=== PATIENT | male | born 1940 | race Caucasian/White ===

== ENCOUNTER 2020-01-17 15:17 | Outpatient (REF) | payer MEDICARE, SELFPAY ==
[2020-01-17 16:42] LABS: C Reactive Protein 0.09 mg/dL (< or = 0.50)
[2020-01-17 17:06] LABS: Erythrocyte Sedimentation Rate 4 MM/HR (0-15)
[2020-01-20 08:31] LABS: HBS Num1 0.07 mIU/mL (0-7.99); ~Hepatitis B Surface Antibody NONREACTIVE (Nonreactive)
== END 2020-01-17 15:18 | disposition home or self-care (01) ==
LOC: HO.LAB 15:17
PROVIDERS: Visit Provider Specialist
DX: E11.9 Type 2 diabetes mellitus without complications (principal); G44.89 Other headache syndrome
CPT/HCPCS: 36415; 85652; 86140; 86706

== ENCOUNTER 2020-03-03 12:51 | Outpatient (REF) | payer MEDICARE, SELFPAY ==
--- NOTE | 2020-03-03 | CT_ITS ---
EXAMINATION: CT BRAIN AND CT SINUS WITHOUT CONTRAST. CLINICAL INFORMATION: Pain over the left eye, headache. COMPARISON: None TECHNIQUE: A 5 mm thin axial and reformatted 2 mm thin sagittal and coronal images of the brain were obtained. Subsequently axial 2 mm thin and reformatted 2 mm thin sagittal and coronal images of sinuses were obtained. DLP: 912 mGy-cm FINDINGS: BRAIN: There is no acute intra-axial, extra-axial bleed, masses or midline shift. There is no acute infarction evolution. The lateral ventricles are symmetrical in size and configuration without enlargement. Lund to white matter differentiation is maintained. Bone windows reveal no calvarial abnormality. Visualized optic globe, optic nerve and extraocular muscles are unremarkable. There is no scalp soft tissue abnormality. Visualized bilateral paranasal sinuses and mastoid air cells are well-aerated. SINUSES: There is normal aeration of bilateral paranasal sinuses and drainage pathways. The ostiomeatal complex and frontoethmoidal recesses are widely patent. The bony sinus lomax are intact. The lamina papyracea and cribriform plate appears normal. There is mild rosalind bullosa of middle turbinates. Periorbital, nasal and maxillary soft tissues are normal. CT/CT sinus wo con IMPRESSION: 1. No acute intracranial process seen. 2. Unremarkable CT sinus exam. Especially there is no intraorbital or periorbital soft tissue abnormality.
--- NOTE | 2020-03-03 | CT_ITS ---
EXAMINATION: CT BRAIN AND CT SINUS WITHOUT CONTRAST. CLINICAL INFORMATION: Pain over the left eye, headache. COMPARISON: None TECHNIQUE: A 5 mm thin axial and reformatted 2 mm thin sagittal and coronal images of the brain were obtained. Subsequently axial 2 mm thin and reformatted 2 mm thin sagittal and coronal images of sinuses were obtained. DLP: 912 mGy-cm FINDINGS: BRAIN: There is no acute intra-axial, extra-axial bleed, masses or midline shift. There is no acute infarction evolution. The lateral ventricles are symmetrical in size and configuration without enlargement. Lund to white matter differentiation is maintained. Bone windows reveal no calvarial abnormality. Visualized optic globe, optic nerve and extraocular muscles are unremarkable. There is no scalp soft tissue abnormality. Visualized bilateral paranasal sinuses and mastoid air cells are well-aerated. SINUSES: There is normal aeration of bilateral paranasal sinuses and drainage pathways. The ostiomeatal complex and frontoethmoidal recesses are widely patent. The bony sinus lomax are intact. The lamina papyracea and cribriform plate appears normal. There is mild rosalind bullosa of middle turbinates. Periorbital, nasal and maxillary soft tissues are normal. CT/CT head/brain wo con IMPRESSION: 1. No acute intracranial process seen. 2. Unremarkable CT sinus exam. Especially there is no intraorbital or periorbital soft tissue abnormality.
== END 2020-03-03 12:52 | disposition home or self-care (01) ==
LOC: HO.CT 12:51
DX: R51.9 Headache, unspecified (principal); H57.12 Ocular pain, left eye
CPT/HCPCS: 70450; 70486

== ENCOUNTER 2020-05-30 09:01 | Outpatient (REF) | payer MEDICARE, SELFPAY ==
[2020-05-30 10:58] LABS: MANUAL DIFF FLAG NO
[2020-05-30 11:16] LABS: Basophils Percent Auto 0.6 % (0-2); Eosinophils Absolute Auto 0.4 X10*3/uL (0.0-0.4); Eosinophils Percent Auto 5.8 % (0-4); Hemoglobin 13.6 g/dl (14.0-18.0); Imm Gran Abs Auto 0.02 X10*3/uL (0.00-0.03); Imm Gran Pct Auto 0.3 % (0.0-0.4); Lymphocytes Absolute Auto 1.6 X10*3/uL (1.2-4.9); Lymphocytes Percent Auto 23.5 % (20-40); Mean Corpuscular HGB Conc 32.4 g/dl (31.0-36.0); Mean Corpuscular Hemoglobin 30.6 pg (27.0-33.0); Mean Corpuscular Volume 94.4 fL (80-98); Mean Platelet Volume 10.3 fL (9.4-12.4); Monocytes Absolute Auto 0.6 X10*3/uL (0.1-1.2); Monocytes Percent Auto 7.9 % (2-11); Neutrophils Absolute Auto 4.3 X10*3/uL (2.0-8.3); Neutrophils Percent Auto 61.9 % (45-73); Platelet Count 211 X10*3/uL (160-400); Red Blood Count 4.45 X10*6/uL (4.60-5.80); Red Cell Distribution Width 14.6 % (11.0-16.0); White Blood Count 6.9 X10*3/uL (4.8-10.8)
[2020-05-30 11:20] LABS: Creatinine Urine 87.45 mg/dL; Microalbum/Creatinine Ratio Ur 62.8 ug/mg cr
[2020-05-30 11:32] LABS: Alanine Aminotransferase 10 U/L (0-40); Albumin Level 3.9 g/dL (3.5-5.0); Alkaline Phosphatase 82 U/L (39-117); Anion Gap 12 (12-20); Aspartate Amino Transferase 16 U/L (5-37); Bilirubin Total 0.7 mg/dL (0.0-1.0); Blood Urea Nitrogen 20 mg/dL (9-16); Calcium 9.1 mg/dL (8.4-10.2); Carbon Dioxide 25 mmol/L (22-29); Chloride 108 mmol/L (96-108); Cholesterol 141 mg/dL; Estimated Glomerular Filt Rate 48; Glucose Fasting 111 mg/dL (60-99); HDL Cholesterol 52 mg/dL; LDL Cholesterol Calculated 62 mg/dl; Potassium 4.1 mmol/L (3.3-5.1); Sodium 141 mmol/L (135-145); Total Protein 6.4 g/dL (6.5-8.0); Triglycerides 139 mg/dL
[2020-05-30 11:44] LABS: Thyroid Stimulating Hormone 1.02 uIU/mL (0.32-4.0)
== END 2020-05-30 09:02 | disposition home or self-care (01) ==
LOC: HO.LAB 09:01
PROVIDERS: PCP Internal Medicine; Visit Provider Internal Medicine
DX: Z00.00 Encounter for general adult medical examination without abnormal findings (principal); E11.9 Type 2 diabetes mellitus without complications; E03.9 Hypothyroidism, unspecified
CPT/HCPCS: 36415; 80053; 80061; 82043; 84443; 85025

== ENCOUNTER 2020-11-04 16:49 | Outpatient (REF) | payer MEDICARE, SELFPAY | END 2020-11-04 16:50 | disposition home or self-care (01) | LOC: HO.LNP 16:49 | PROVIDERS: Visit Provider Internal Medicine | DX: Z20.822 Contact with and (suspected) exposure to COVID-19 (principal); J06.9 Acute upper respiratory infection, unspecified | CPT/HCPCS: U0003; U0005 ==

== ENCOUNTER 2024-03-11 15:37 | Inpatient (IN) | payer MEDICARE, SELFPAY ==
--- NOTE | ~2024-03-11 | MR_ITS ---
EXAMINATION: MR BRAIN WITHOUT CONTRAST CLINICAL INFORMATION: Right upper and right lower extremity weakness. COMPARISON: None available. TECHNIQUE: MRI of the brain was obtained using routine sequences without contrast. FINDINGS: There is restricted subcortical diffusion seen in left central semiovale in the precentral gyrus cyst with a small area of acute infarct. No additional areas of restricted effusion seen. There is no magnetic susceptibility artifact seen to suspect any hemorrhagic contusion or conversion of infarct. There are scattered T2 linear and targeted lesions in pericallosal white matter in both cerebral hemispheres. These could be the sequelae of previous demyelination and/or white matter changes. There is no mass effect. The lateral ventricles are symmetrical in size and configuration but mildly enlarged. Normal flow void signal seen in major cerebral vasculature. Bilateral optic globes, optic nerve and the orbital soft tissues are normal. No abnormality seen in the posterior fossa. The sella is grossly unremarkable. The paranasal sinuses and mastoid air cells are well-aerated and clear. 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 There are multiple linear and targeted lesions in the pericallosal white matter of both cerebral hemispheres, question sequelae of previous MS versus chronic small vessel ischemic changes. Electronically signed by: Yung Suggs MD 03/12/2024 10:42 AM [facility]
--- NOTE | ~2024-03-11 | XR_ITS ---
CLINICAL HISTORY: Stroke Protocol 1 view chest x-ray Comparison: None Findings: The lungs are clear. Heart size is normal. No acute fracture. IMPRESSION: 1. No acute findings. This document has been electronically signed by: Lisandra Banda MD on 03/11/2024 17:53:21
--- NOTE | ~2024-03-11 | CT_ITS ---
EXAMINATION: CT HEAD WITHOUT CONTRAST (STROKE PROTOCOL). CTA HEAD AND NECK WITH CONTRAST CLINICAL INFORMATION: Stroke protocol. Acute right-sided weakness COMPARISON: CT brain 03/03/2020 TECHNIQUE: Contiguous axial imaging was performed from the skull base to vertex without intravenous administration of contrast.DLP: 733 mGy-cm. Subsequently 3 mm thin axial and reconstructed 8mm thick sagittal and coronal images as CTA neck and brain was obtained following IV 85 mL of Omnipaque 350 . DLP 1618 mGy/cm. This CT examination was performed using dose optimization techniques as appropriate, variously including the following: *Automated exposure control *Adjustment of mA and/or kV according to patient size (this includes techniques or standardized protocols for targeted exams where dose is matched to indication/reason for exam; i.e. extremities or head) *Use of iterative reconstruction technique FINDINGS: There is no acute intra-axial, extra-axial bleed, masses or midline shift. There is no acute infarction in evolution. There is mild periventricular hypodensity in both cerebral hemispheres suggestive of chronic small vessel ischemic changes There is no edema. The xavier to white matter differentiation is maintained normal. The lateral ventricles are symmetrical in size and configuration without enlargement. Bilateral paranasal sinuses and mastoid air cells are well-aerated. No calvarial abnormality. No scalp soft tissue abnormality. Bilateral optic nerve, optic globe and periorbital soft tissues are normal. CTA NECK: The aortic arch is patent with a three-vessel aortic arch branching. The origins of all 3 vessels are patent. Bilateral origins of common carotid artery are patent. Both carotid arteries bifurcate normally into internal and extra carotid artery. There is minimal plaque at the right carotid bulb/proximal ICA. Both internal carotid arteries are widely patent throughout the neck extending intracranially. Both external carotid arteries are widely patent as well. There is a dominant left vertebral artery. Both vertebral arteries are patent throughout the neck CTA brain: A dominant left vertebral artery is noted. [place] to form the basilar artery. The basilar artery is widely patent throughout its course. There is origin of right posterior cerebral artery. A small left P-comm artery is noted. Bilateral cavernous, petrous and supraclinoid segment of ICA widely patent. There is minimal atherosclerosis in the cavernous segment. Both internal carotid arteries bifurcate into anterior and middle cerebral arteries which are normal caliber. No aneurysm or dissection seen. MCA. Trifurcation and bilateral anterior subdural artery bifurcations are widely patent. There is normal capillary flow seen bilateral cerebral cortices. The major venous sinuses are patent. A dominant left jugular vein is noted. Postcontrast CT neck and brain: There is no abnormal enhancing intracranial mass or AVM. Bilateral parotid, submandibular glands and thyroid lobes are symmetrical. The airway is widely patent. No enhancing neck mass or abnormal sized lymphadenopathy seen. There are dental amalgam related artifact in the oral cavity limiting evaluation. The paranasal sinuses are clear. The lung apices are clear. Mild degenerative disc changes seen throughout cervical spine without lytic or sclerotic process. CT/CT head for STROKE IMPRESSION: No acute intracranial process seen. Unremarkable CTA head and neck. This critical result was discussed with Dr. Landon Dillon at 8:20 AM on 03/12/2024. It was ascertained that the content and urgency of the report was understood at the time of direct communication. Electronically signed by: Yung Suggs MD 03/12/2024 08:34 AM [facility]
--- NOTE | ~2024-03-11 | CT_ITS ---
CLINICAL HISTORY: Stroke Protocol CT angiography head and neck with contrast, CT venogram head. 3D Postprocessing. Comparison: CT/SR - CT HEAD FOR STROKE - 03/11/24 15:47 EST Findings: Aortic arch and cervical great vessels are patent. Mild AC of the carotid bulbs. No significant stenoses of the internal carotid artery. Intracranial arteries are patent. No aneurysm, dissection, or occlusion. No abnormal intracranial enhancement. Small nodule of the left lobe of thyroid gland. No cervical mass or fluid collection. Lung apices clear. No acute fracture. Degenerative changes of the cervical spine. No abnormal contrast filling defect of the dural venous sinuses. IMPRESSION: Patent head and neck CTA. No evidence of dural venous sinuses thrombosis. This document has been electronically signed by: Lisandra Banda MD on 03/11/2024 17:48:08
--- NOTE | ~2024-03-11 | CT_ITS ---
EXAMINATION: CT HEAD WITHOUT CONTRAST (STROKE PROTOCOL) CLINICAL INFORMATION: Stroke protocol. COMPARISON: None available. TECHNIQUE: Contiguous axial imaging was performed from the skull base to vertex without intravenous administration of contrast. This CT examination was performed using dose optimization techniques as appropriate, variously including the following: *Automated exposure control *Adjustment of mA and/or kV according to patient size (this includes techniques or standardized protocols for targeted exams where dose is matched to indication/reason for exam; i.e. extremities or head) *Use of iterative reconstruction technique DLP: 733 mGy-cm FINDINGS: There is no acute intra-axial, extra-axial bleed, masses or midline shift. There is no acute infarction in evolution. There is no edema. The lateral ventricles are symmetrical in size and configuration without enlargement. Bone windows reveal no calvarial abnormality. There is no scalp soft tissue abnormality. The paranasal sinuses are well-aerated and clear. CT/CT head for STROKE IMPRESSION: No acute intracranial process seen. This critical result was discussed with Dr. Wilson at 4:05 PM hours on 03/11/2024. It was ascertained that the content and urgency of the report was understood at the time of direct communication. Electronically signed by: Yung Suggs MD 03/11/2024 04:07 PM [facility] [place]
--- NOTE | ~2024-03-11 | MR_ITS ---
EXAMINATION: MRA neck and MRA brain without contrast. CLINICAL INDICATION: Stroke. Infarct left frontal lobe. COMPARISON: MRI brain 03/12/2024. TECHNIQUE: Following intravenous administration of 10 mL of gadolinium, MRA of the neck was obtained.. Raw and post processed data is available for interpretation. Subsequently 2-D and 3-D [id number] MRA neck was obtained. Raw and post process data is available for interpretation. Ages were performed from above the clavicle to the vertex. FINDINGS: NECK: The distal common carotid arteries bilaterally patent. There is normal appearing bulb. The entire internal carotid arteries are well-opacified extending to the skull base without any evidence of thrombus or dissection. A dominant right vertebral artery is noted continuing as a basal artery. A small left vertebral artery is noted. Brain: Bilateral internal carotid arteries have a normal course through the petrous, cavernous and supraclinoid segments. The left internal carotid artery bifurcates into anterior middle sacral arteries without any aneurysm or dissection. The right internal carotid artery bifurcates in a small caliber right anterior cerebral and normal caliber middle several arteries. A patent anterior to indicating artery is noted there is no aneurysm atherosclerotic narrowing or thrombosis. There is normal symmetrical distribution of secondary and tertiary branches of middle and anterior cerebral arteries in both cerebral cortices. A dominant left vertebral artery merges with the right vertebral artery as basilar artery. The basilar artery caliber is normal with normal bifurcation into left posterior cerebral artery. There is origin of right posterior several artery with a very small P1 segment right posterior cerebral artery. There is no obvious cord narrowing or aneurysm seen. Major intracranial venous sinuses are patent. A dominant left jugular vein is noted. MR/MR angio neck wo/w con IMPRESSION: Unremarkable MRA neck and MRA brain. A dominant left vertebral artery is noted. Electronically signed by: Yung Suggs MD 03/14/2024 12:00 PM [facility] - [place], [place]
--- NOTE | ~2024-03-11 | MR_ITS ---
EXAMINATION: MRA neck and MRA brain without contrast. CLINICAL INDICATION: Stroke. Infarct left frontal lobe. COMPARISON: MRI brain 03/12/2024. TECHNIQUE: Following intravenous administration of 10 mL of gadolinium, MRA of the neck was obtained.. Raw and post processed data is available for interpretation. Subsequently 2-D and 3-D [id number] MRA neck was obtained. Raw and post process data is available for interpretation. Ages were performed from above the clavicle to the vertex. FINDINGS: NECK: The distal common carotid arteries bilaterally patent. There is normal appearing bulb. The entire internal carotid arteries are well-opacified extending to the skull base without any evidence of thrombus or dissection. A dominant right vertebral artery is noted continuing as a basal artery. A small left vertebral artery is noted. Brain: Bilateral internal carotid arteries have a normal course through the petrous, cavernous and supraclinoid segments. The left internal carotid artery bifurcates into anterior middle sacral arteries without any aneurysm or dissection. The right internal carotid artery bifurcates in a small caliber right anterior cerebral and normal caliber middle several arteries. A patent anterior to indicating artery is noted there is no aneurysm atherosclerotic narrowing or thrombosis. There is normal symmetrical distribution of secondary and tertiary branches of middle and anterior cerebral arteries in both cerebral cortices. A dominant left vertebral artery merges with the right vertebral artery as basilar artery. The basilar artery caliber is normal with normal bifurcation into left posterior cerebral artery. There is origin of right posterior several artery with a very small P1 segment right posterior cerebral artery. There is no obvious cord narrowing or aneurysm seen. Major intracranial venous sinuses are patent. A dominant left jugular vein is noted. MR/MR angio head wo/w con IMPRESSION: Unremarkable MRA neck and MRA brain. A dominant left vertebral artery is noted. Electronically signed by: Yung Suggs MD 03/14/2024 12:00 PM [facility] - [place]
--- NOTE | 2024-03-11 15:46 | ECG_ITS ---
Test Reason : STROKE Blood Pressure : / mmHG Vent. Rate : 058 BPM Atrial Rate : 058 BPM P-R Int : 258 ms QRS Dur : 104 ms QT Int : 416 ms P-R-T Axes : 050 -40 -01 degrees QTc Int : 408 ms Sinus bradycardia with 1st degree A-V block Left axis deviation Inferior infarct , age undetermined Anterolateral infarct , age undetermined Abnormal ECG No previous ECGs available Referred By: Juni Shetty Electronically Signed By:KENDAL ALCANTAR MD
[2024-03-11 15:48] VITALS: BP 143/87; PULSE 60; O2SAT 98
--- NOTE | 2024-03-11 15:48 | ED_ITS ---
HPI - Neuro Symptoms/Deficit General Chief Complaint: Stroke Stated Complaint: acute on set R side weakness slurred speach Time Seen by Provider: 03/11/24 15:46 Related Data Allergies Allergy/AdvReac Type Severity Reaction Status Date / Time metformin Allergy Diarrhea Verified 03/11/24 16:18 Review of Systems 2 Review of Systems: Patient endorses right upper or right lower extremity weakness Yes all other systems are reviewed and are negative [facility] Social History Social History Alcohol intake: current Alcohol intake frequency: a few times a week Smoked in Last 30 Days: No Use of substances other than those prescribed or required for medical reasons: No Advance Directives: No Advance Directives Information Provided: No Do you have a plan to hurt others: No Plan Physical Exam 2 Vital Signs: Vital Signs: Last Vital Signs Temp 97.8 F 03/11/24 19:06 Pulse 63 03/11/24 19:06 Resp 18 03/11/24 19:06 BP 163/75 H 03/11/24 19:06 Pulse Ox 97 03/11/24 19:06 O2 Del Method Room Air 03/11/24 19:06 BMI result Body Mass Index 32.1 Well-appearing male; A&O x4 Weakness to right upper and right lower extremity; sensation intact Lungs clear to auscultation bilaterally Normal S1-S2 regular rate and rhythm Abdomen is soft nontender nondistended Medications Administered Discontinued Medications Generic Name Dose Route Start Last Admin Trade Name Freq PRN Reason Stop Dose Admin Iohexol 100 ml 03/11/24 16:02 03/11/24 16:02 Iohexol 350 Mg/Ml 100 Ml Infus..Btl IV 03/11/24 16:03 70 ml ONCE ONE Administration Medical Decision Making Medical Decision Making [facility] Narrative: 89-year-old male presenting with right-sided weakness. I am concerned for CVA/stroke -labs and imaging studies ordered -I reviewed patient's CT imaging and did not appreciate head bleed or significant LVO in the radiologist impression was negative for acute bleed/significant vessel obstruction -reviewed patient's chest x-ray and did not appreciate large consolidation and radiologist impression reads no acute findings. -lab work notable for H&H within normal limits, no white count, electrolytes within normal limits, mildly elevated creatinine, negative troponin - I spoke with oncall neurologist Dr. Nogueira who recommended admission for MRI - on reassessment patient is found to have improved and he is now able to range both his right upper and right lower extremities - I spoke with overnight hospitalist who accepted the patient for admission Lab Data 03/11/24 17:30 03/11/24 17:30 Labs: Lab Results 03/11/24 03/11/24 Range/Units 16:12 17:30 WBC 7.5 (4.8-10.8) X10*3/uL RBC 4.33 L (4.60-5.80) X10*6/uL Hgb 13.6 L (14.0-18.0) g/dl Hct 41.0 L (42.0-52.0) % MCV 94.7 (80.0-98.0) fL MCH 31.4 (27.0-33.0) pg MCHC 33.2 (31.0-36.0) g/dl RDW 14.1 (11.0-16.0) % Plt Count 152 L (160-400) X10*3/uL MPV 9.5 (9.4-12.4) fL Immature Gran % (Auto) 0.1 (0.0-0.4) % Neut % (Auto) 68.1 (45-73) % Lymph % (Auto) 19.3 L (20-40) % Stephenson % (Auto) 8.3 (2-11) % Eos % (Auto) 3.9 (0-4) % Baso % (Auto) 0.3 (0-2) % Lymph # (Auto) 1.4 (1.2-4.9) X10*3/uL Stephenson # (Auto) 0.6 (0.1-1.2) X10*3/uL Eos # (Auto) 0.3 (0.0-0.4) X10*3/uL Baso # (Auto) 0.0 (0.0-0.2) X10*3/uL Abs Immat Gran (auto) 0.01 (0.00-0.03) X10*3/uL Absolute Neuts (auto) 5.1 (2.0-8.3) x10*3/uL Absolute Nucleated RBC 0.000 (0.0-0.012) X10*3/uL Nucleated RBC % (auto) 0.0 (0.0-0.2) /100WBC PT 11.7 (10.9-12.4) SEC Whole Blood PT 12.9 (11.1-13.5) sec INR 1.0 (0.9-1.1) Whole Blood INR 1.1 (0.9-1.1) APTT 35.1 (26.0-36.8) SEC Sodium 140 (135-145) mmol/L Potassium 4.4 (3.3-5.1) mmol/L Chloride 110 H (96-108) mmol/L Carbon Dioxide 25 (22-29) mmol/L Anion Gap 9 L (12-20) BUN 16 (9-16) mg/dL Creatinine 1.52 H (0.5-1.4) mg/dL Estim Creat Clear Calc 39.9 Estimated GFR 44 POC Glucose 179 H (60-115) mg/dL Random Glucose 126 H (60-115) mg/dL Calcium 9.2 (8.4-10.2) mg/dL Troponin I High Sens < 2.7 (<3.5-35.0) ng/L Triglycerides 136 (<150) mg/dL Cholesterol 140 (<200) mg/dL LDL Cholesterol, Calc 59 (<100) mg/dL HDL Cholesterol 54 (>40) mg/dL Ethyl Alcohol < 10 mg/dL NIH Stroke Scale Internal: Initial- Upon Arrival Time: 15:49 Level of Consciousness: Alert Level of Consciousness Questions: Answers both questions correctly Level of Consciousness Commands: Performs both tasks correctly Best Gaze: Normal Visual: No visual loss Facial Palsy: Normal Motor Arm (Right): Drift Motor Arm (Left): No drift Motor Leg (Right): Some effort against gravity Motor Leg (Left): No drift Limb Ataxia: Absent Sensory: Normal Best Language: No aphasia Dysarthia: Normal Extinction and Inattention: No abnormality Score: 3 Discharge Plan Discharge Clinical Impression: Focal neurological deficit Patient Disposition: Admitted As Inpatient Print Language: [place]an
[2024-03-11] MEDS: iohexoL 350 MG/ML 100 ML INFUS..BTL IV (16:02)
[2024-03-11 16:14] VITALS: BMI 32.1
[2024-03-11 16:18] LABS: Glucose, Whole Blood 179 mg/dL (60-115)
--- NOTE | 2024-03-11 16:24 | MHC.EDTECH ---
[id number] COAG#[id number] ED did not show up in the chart had to added manually, had to press on one of the UQ in order to save my documentation. Reported to ED nurse educator Lala.
[2024-03-11 16:37] LABS: Prothrombin Time Whole Bld POC 12.9 sec (11.1-13.5); ~PT, ~INR - Anti Coag Clinic 1.1 (0.9-1.1)
--- NOTE | 2024-03-11 16:37 | MHC.EDTECH ---
Delay on the EKG PT INR POC due to patient being in CT and EKG machine being used by another airplane gastank liner assembler. nurse aware
[2024-03-11 17:33] LABS: MANUAL DIFF FLAG NO
[2024-03-11 17:34] LABS: Basophils Percent Auto 0.3 % (0-2); Eosinophils Absolute Auto 0.3 X10*3/uL (0.0-0.4); Eosinophils Percent Auto 3.9 % (0-4); Hemoglobin 13.6 g/dl (14.0-18.0); Imm Gran Abs Auto 0.01 X10*3/uL (0.00-0.03); Imm Gran Pct Auto 0.1 % (0.0-0.4); Lymphocytes Absolute Auto 1.4 X10*3/uL (1.2-4.9); Lymphocytes Percent Auto 19.3 % (20-40); Mean Corpuscular HGB Conc 33.2 g/dl (31.0-36.0); Mean Corpuscular Hemoglobin 31.4 pg (27.0-33.0); Mean Corpuscular Volume 94.7 fL (80.0-98.0); Mean Platelet Volume 9.5 fL (9.4-12.4); Monocytes Absolute Auto 0.6 X10*3/uL (0.1-1.2); Monocytes Percent Auto 8.3 % (2-11); Neutrophils Absolute Auto 5.1 x10*3/uL (2.0-8.3); Neutrophils Percent Auto 68.1 % (45-73); Platelet Count 152 X10*3/uL (160-400); Red Blood Count 4.33 X10*6/uL (4.60-5.80); Red Cell Distribution Width 14.1 % (11.0-16.0); White Blood Count 7.5 X10*3/uL (4.8-10.8)
[2024-03-11 17:40] LABS: Prothrombin Time 11.7 SEC (10.9-12.4)
[2024-03-11 17:41] LABS: Stroke Lab Use COMPLETE
[2024-03-11 17:42] LABS: Partial Thromboplastin Time 35.1 SEC (26.0-36.8)
[2024-03-11 17:52] LABS: Anion Gap 9 (12-20); Blood Urea Nitrogen 16 mg/dL (9-16); Calcium 9.2 mg/dL (8.4-10.2); Carbon Dioxide 25 mmol/L (22-29); Chloride 110 mmol/L (96-108); Cholesterol 140 mg/dL (<200); Creatinine Clr Calc Pharmacy 39.9; Estimated Glomerular Filt Rate 44; Ethanol < 10 mg/dL; Glucose Random 126 mg/dL (60-115); HDL Cholesterol 54 mg/dL (>40); LDL Cholesterol Calculated 59 mg/dL (<100); Potassium 4.4 mmol/L (3.3-5.1); Sodium 140 mmol/L (135-145); Triglycerides 136 mg/dL (<150)
[2024-03-11 17:58] LABS: Troponin-I High Sensitivity < 2.7 ng/L (<3.5-35.0)
[2024-03-11 19:06] VITALS: BP 163/75; PULSE 63; RESP 18; TEMP 36.6; O2SAT 97
--- NOTE | 2024-03-11 20:34 | PM.IMHP ---
History of Present Illness Date of Service: 03/11/24 Attending physician on admission: Enrico Shi Chief Complaint: R weakness Patient is an 84-year-old male with a past medical history significant for atrial fibrillation on Xarelto, insulin-dependent diabetes and history of possible MN, who presented to the ED today with right upper extremity and right lower extremity weakness and dysarthria beginning at 10:00. He reports that he was working in his office and noticed the upper extremity weakness and try to find his but was unable to ambulate to find her in unable to call her name due to the dysarthria. Shortly after she did find him and they called EMS. He reports many episodes in the past year and a half with similar symptoms however they usually resolve fairly quickly. He denies any headache or symptoms leading up to the weakness this morning. Review of Systems Constitutional: Constitutional: Denies chills, Denies fatigue, Denies fever(s) and Denies headache(s) Eyes: Eyes: Denies change in vision ENT: Denies headache(s), Denies nasal congestion, Denies nasal discharge and Denies sore throat Cardiovascular: Cardiovascular: Denies chest pain, Denies rapid heart rate, Denies leg edema and Denies dyspnea Respiratory: Respiratory: Denies chest congestion, Denies cough, Denies dyspnea and Denies wheezing Gastrointestinal: Gastrointestinal: Denies constipation, Denies diarrhea, Denies nausea and Denies vomiting Genitourinary: Genitourinary: Denies dysuria and Denies urinary urgency Musculoskeletal: Musculoskeletal: Reports as per HPI Integumentary/Breasts: Skin/Breast: Denies rash Neurologic: Reports as per HPI, Denies confusion, Denies headache(s) and Denies memory loss Psychiatric: Psychiatric: Denies confusion and Denies memory loss Endocrine: Endocrine: Denies fatigue Hematologic/Lymphatic: Hematologic/Lymphatic: Denies easy bleeding and Denies easy bruising Allergic/Immunologic: Allergic/Immunologic: Denies wheezing [facility] Medical History (Updated 03/11/24 @ 20:48 by Tuyet Goff PA-C) Insulin dependent type 2 diabetes mellitus A-fib Functional capacity: independent ambulation Social History Alcohol intake: current Alcohol intake frequency: a few times a week Smoked in Last 30 Days: No Use of substances other than those prescribed or required for medical reasons: No Advance Directives: No Advance Directives Information Provided: No Do you have a plan to hurt others: No Plan Narrative: Previous smoker, quit in 1963. Social occasional alcohol. No drug use. Meds Allergies Allergy/AdvReac Type Severity Reaction Status Date / Time metformin Allergy Diarrhea Verified 03/11/24 16:18 Active Medications: Current Medications Acetaminophen (Acetaminophen 325 Mg Tablet) 650 mg PO Q6H PRN PRN Reason: Pain, Mild 1-3,fever,headache Aspirin (Aspirin Enteric Coated 81 Mg Tablet.Dr) 81 mg PO DAILY [facility] Atorvastatin Calcium (Atorvastatin Calcium 40 Mg Tablet) 40 mg PO DAILY [facility] Calcium Carbonate (Calcium Carbonate 750 Mg Tab.Chew) 750 mg PO Q4H PRN PRN Reason: Heartburn Glucose (Glucose Gel 15 Gm Gel..Gram.) 15 gm PO Q15M PRN; Protocol PRN Reason: per Hypoglycemia Standing Ord. Dextrose (D10) 250 mls @ 750 mls/hr IV Q15M PRN; Protocol PRN Reason: per Hypoglycemia Standing Ord. Insulin Human Lispro (Insulin Lispro 100 Unit/Ml 3 Ml Vial) 0 unit SUBCUT QIDACHS [facility]; Protocol Magnesium Hydroxide (Milk Of Magnesia 30 Ml Oral.Susp) 30 ml PO DAILY PRN PRN Reason: Constipation Melatonin (Melatonin 3 Mg Tablet) 6 mg PO BEDTIME PRN PRN Reason: Insomnia Ondansetron HCl (Ondansetron Hcl 4 Mg/2 Ml Vial) 4 mg IVPUSH Q8H PRN PRN Reason: Nausea and Vomiting Rivaroxaban (Rivaroxaban 15 Mg Tablet) 15 mg PO DAILY [facility] Physical Exam Vital Signs and Narrative: Vital Signs: Last Vital Signs Temp 97.8 F 03/11/24 19:06 Pulse 63 03/11/24 19:06 Resp 18 03/11/24 19:06 BP 163/75 H 03/11/24 19:06 Pulse Ox 97 03/11/24 19:06 O2 Del Method Room Air 03/11/24 19:06 BMI result Body Mass Index 32.1 General: AOx3, no acute distress, clear articulation Resp: CTA bilaterally CVS: bradycardiac, regularly rhythm GI: +BS, NT, no distention Skin: Warm, dry Neuro: Cranial nerves II-XII grossly intact bilaterally. Motor grossly intact bilaterally. strength 5/5 bilateral upper and lower extremities. no facial droop Extremities: No LE edema Psych: Appropriate affect Const: General: No confusion Orientation/consciousness: No confusion Neuro: General: No confusion Results Labs 03/11/24 17:30 03/11/24 17:30 Labs: Laboratory Results - last 24 hr 03/11/24 03/11/24 16:12 17:30 MCV 94.7 MCH 31.4 MCHC 33.2 RDW 14.1 Plt Count 152 L MPV 9.5 Immature Gran % (Auto) 0.1 Neut % (Auto) 68.1 Lymph % (Auto) 19.3 L Dare % (Auto) 8.3 Eos % (Auto) 3.9 Baso % (Auto) 0.3 Lymph # (Auto) 1.4 Dare # (Auto) 0.6 Eos # (Auto) 0.3 Baso # (Auto) 0.0 Abs Immat Gran (auto) 0.01 Absolute Neuts (auto) 5.1 Absolute Nucleated RBC 0.000 Nucleated RBC % (auto) 0.0 PT 11.7 Whole Blood PT 12.9 INR 1.0 Whole Blood INR 1.1 APTT 35.1 Anion Gap 9 L Estim Creat Clear Calc 39.9 Estimated GFR 44 POC Glucose 179 H Random Glucose 126 H Calcium 9.2 Troponin I High Sens < 2.7 Triglycerides 136 Cholesterol 140 LDL Cholesterol, Calc 59 HDL Cholesterol 54 Ethyl Alcohol < 10 Imaging Radiologist's Impressions: Impressions Head CT 03/11/24 15:47 IMPRESSION: No acute intracranial process seen. This critical result was discussed with Dr. Wilson at 4:05 PM hours on 03/11/2024. It was ascertained that the content and urgency of the report was understood at the time of direct communication. Electronically signed by: Yung Suggs MD 03/11/2024 04:07 PM [facility] Assessment and Plan (1) TIA (transient ischemic attack): Status: Acute (2) Acute kidney injury superimposed on CKD: Status: Acute (3) CKD (chronic kidney disease) stage 3, GFR 30-59 ml/min: Status: Chronic (4) Obesity (BMI 30.0-34.9): Status: Chronic Plan Patient is an 84-year-old male with a past medical history significant for atrial fibrillation on Xarelto, insulin-dependent diabetes and history of possible MN, who presented to the ED today with right upper extremity and right lower extremity weakness and dysarthria beginning at 10:00. Head CT and CT a head and neck both negative. Deficits have resolved. TIA - initially presented due to right upper extremity and right lower extremity weakness and dysarthria, now resolved - CT head and CTA head and neck both negative - EKG with bradycardia and first-degree AV block, no active AFib - lipid panel within normal limits - MRI brain - atorvastatin 40 mg daily - ASA 81 mg daily - passed bedside swallow - neuro consult - neuro checks Q2h - admit to med tele with cardiac monitoring LYNN on CKD, mild - encourage PO fluids - monitor BMP a fib - EKG without active a fib - continue metoprolol and xarelto IDDM - sliding scale insulin - diabetic diet obesity - BMI 32.1 - weight loss encouraged full code VTE prophy: xarelto Patient with TIA requiring admission for monitoring and further neurologic workup for at least 2 midnights stay. Quality Stroke Does the patient have a stroke diagnosis?: No VTE Prior VTE?: No VTE Risk Level:: Medical - moderate - high VTE Device Contraindication: Treatment Not Indicated VTE Drug Contraindication: N/A - Med Ordered
[2024-03-11 21:05] VITALS: BP 173/82; PULSE 67; RESP 14; TEMP 36.3; O2SAT 97
[2024-03-11 21:31] LABS: Appearance Urine Clear; Color Urine Yellow; Glucose Urine UA Negative (Negative); Leukocyte Esterase Urine Negative (Negative); Nitrite Urine Negative (Negative); PH 6.5 (5.0-9.0); Urine Blood Negative (Negative); Urine Ketones Negative (Negative); Urine Protein Trace mg/dL (Neg-Trace)
[2024-03-11 21:36] LABS: Bacteria Urine None Seen (None Seen); Hyaline Casts Urine 0-2 /LPF (0-2); RBC Urine 0-2 /HPF (0-2); Squamous Epithelial Cell Urine 0-2 /HPF (0-2); WBC Urine 0-5 /HPF (0-5)
--- NOTE | 2024-03-11 22:02 | PC.NURSE ---
This RN to help RN that has assumed care of pt with medical lab tech instructor. Plan of care ongoing.
[2024-03-11 22:11] LABS: Glucose, Whole Blood 145 mg/dL (60-115)
--- NOTE | 2024-03-11 22:31 | PC.NURSE ---
Harleen not in pyxis. Pharm called and spoke with Sharron Sauceda bring med. Plan of care ongoing.
[2024-03-12] VITALS (9 sets, daily range): BP systolic 137–168; BP diastolic 67–85; PULSE 56–78; RESP 12–18; TEMP 36.1–36.9; O2SAT 94–97
[2024-03-12 00:06] LABS: Troponin-I High Sensitivity 2.8 ng/L (<3.5-35.0)
[2024-03-12] MEDS: Rivaroxaban 15 MG TABLET PO ×2 (00:17→18:02)
[2024-03-12 05:23] LABS: MANUAL DIFF FLAG NO
[2024-03-12 05:25] LABS: Basophils Percent Auto 0.3 % (0-2); Eosinophils Absolute Auto 0.4 X10*3/uL (0.0-0.4); Eosinophils Percent Auto 5.1 % (0-4); Imm Gran Abs Auto 0.01 X10*3/uL (0.00-0.03); Imm Gran Pct Auto 0.1 % (0.0-0.4); Lymphocytes Absolute Auto 1.9 X10*3/uL (1.2-4.9); Lymphocytes Percent Auto 25.4 % (20-40); Mean Corpuscular HGB Conc 33.3 g/dl (31.0-36.0); Mean Corpuscular Volume 92.9 fL (80.0-98.0); Mean Platelet Volume 10.2 fL (9.4-12.4); Monocytes Absolute Auto 0.7 X10*3/uL (0.1-1.2); Neutrophils Absolute Auto 4.4 x10*3/uL (2.0-8.3); Neutrophils Percent Auto 60.1 % (45-73); Platelet Count 163 X10*3/uL (160-400); Red Blood Count 4.52 X10*6/uL (4.60-5.80); Red Cell Distribution Width 13.9 % (11.0-16.0); White Blood Count 7.3 X10*3/uL (4.8-10.8)
[2024-03-12 05:42] LABS: Estimated Average Glucose 128 mg/dL; Hemoglobin A1C 151.3376 umol/L; Hemoglobin A1c % 6.1 % (<6.0); Total Hemoglobin (HGBA1C) 3494.8291 umol/L
[2024-03-12 05:43] LABS: Anion Gap 12 (12-20); Blood Urea Nitrogen 16 mg/dL (9-16); Calcium 9.4 mg/dL (8.4-10.2); Carbon Dioxide 22 mmol/L (22-29); Chloride 111 mmol/L (96-108); Cholesterol 141 mg/dL (<200); Creatinine Clr Calc Pharmacy 38.6; Estimated Glomerular Filt Rate 42; Glucose Random 120 mg/dL (60-115); HDL Cholesterol 56 mg/dL (>40); LDL Cholesterol Calculated 61 mg/dL (<100); Sodium 141 mmol/L (135-145); Triglycerides 123 mg/dL (<150)
[2024-03-12] MEDS: Omeprazole 20 MG CAPSULE.DR PO (06:19)
[2024-03-12 06:57] LABS: Glucose, Whole Blood 121 mg/dL (60-115)
--- NOTE | 2024-03-12 07:46 | PC.NURSE ---
PT working with patient, came to nurse reporting pt is having right sided facial droops, with trouble eating d/t biting his cheek, pt denies swallowing concerns. Pt upper extremities are weaker on the right side with right sided weakness. aware.
--- NOTE | 2024-03-12 08:55 | PC.NURSE ---
Pt currently in MRI, pt would like to attempt medications when he comes back
--- NOTE | 2024-03-12 09:53 | MHC.CM.PN ---
IMM 03/12/24, Pt lives with his and grand dtr. PCP is listed at [facility], and pt see Melida Yousif at the [facility]. HCP discussed, pt. declined to complete form. Pt does not have home care services or DME. to transport home at DC. DCP: home self care or with services. CM to follow for DC needs.
[2024-03-12] MEDS: Metoprolol Tartrate 50 MG TABLET PO ×2 (10:11→18:02)
[2024-03-12] MEDS: Aspirin Enteric Coated 81 MG TABLET.DR PO (10:12)
[2024-03-12] MEDS: Atorvastatin Calcium 40 MG TABLET PO (10:13)
[2024-03-12] MEDS: Ascorbic Acid 500 MG TABLET PO (10:15)
[2024-03-12] MEDS: Multivitamin TABLET 1 TAB PO (10:15)
[2024-03-12] MEDS: allopurinoL 300 MG TABLET PO (10:15)
--- NOTE | 2024-03-12 11:22 | MHC.STROKE ---
Met with patient and Josefa. Pt awake, alert and oriented x 3. Following commands, mentating appropriately. Slight right sided facial droop noted. Weakness to right upper extremity when compared to the left. Pt on Xarelto for AFib Stroke education reviewed with patient and . Pamphlet provided. All questions answered. Plan of care discussed. Pt/ aware and agreeable to plan. Risk factors reviewed. Will continue to assist as needed.
--- NOTE | 2024-03-12 11:48 | HO.PM.IMPN ---
Subjective Subjective Date of Service: 03/12/24 Interval History: Called by RN to report patient was having some recurrence of his presenting neurological symptoms Patient seen and examined this a.m. bedside Patient reports right-sided weakness Feels weakness on right side of face, often biting his right cheek while eating Per speech is abnormal Review of Systems Negative except HPI/interval history. Physical Exam Vital Signs: Vital Signs: Last Vital Signs Temp 97.7 F 03/12/24 10:14 Pulse 74 03/12/24 10:14 Resp 14 03/12/24 10:14 BP 168/77 H 03/12/24 10:14 Pulse Ox 94 03/12/24 10:14 O2 Del Method Room Air 03/12/24 10:14 BMI result Body Mass Index 32.1 Const: Other: General - no acute distress, appears comfortable Cardiovascular - regular rate and rhythm, S1-S2 Lungs - normal respiratory effort, clear to auscultation bilaterally, no wheezing Abdomen - soft, nontender, no rebound or guarding Extremities - no edema bilaterally Neuro - awake and alert, positive facial droop, right-sided weakness upper extremity greater than lower; speech mildly dysarthric Objective Data Active Medications Acetaminophen (Acetaminophen 325 Mg Tablet) 650 mg PO Q6H PRN PRN Reason: Pain, Mild 1-3,fever,headache Allopurinol (Allopurinol 300 Mg Tablet) 300 mg PO DAILY [facility] Last Admin: 03/12/24 10:15 Dose: 300 mg Documented By: ANN Ascorbic Acid (Ascorbic Acid 500 Mg Tablet) 500 mg PO DAILY [facility] Last Admin: 03/12/24 10:15 Dose: 500 mg Documented By: ANN Aspirin (Aspirin Enteric Coated 81 Mg Tablet.Dr) 81 mg PO DAILY [facility] Last Admin: 03/12/24 10:12 Dose: 81 mg Documented By: ANN Atorvastatin Calcium (Atorvastatin Calcium 40 Mg Tablet) 40 mg PO DAILY [facility] Last Admin: 03/12/24 10:13 Dose: 40 mg Documented By: ANN Calcium Carbonate (Calcium Carbonate 750 Mg Tab.Chew) 750 mg PO Q4H PRN PRN Reason: Heartburn Fluticasone Propionate (Fluticasone Propionate Nasal 16 Gm [place]) 2 spray NOSTRIL-B DAILY [facility] Last Admin: 03/12/24 10:15 Dose: Not Given Documented By: ANN Non-Admin Reason: Patient Refused Glucose (Glucose Gel 15 Gm Gel..Gram.) 15 gm PO Q15M PRN; Protocol PRN Reason: per Hypoglycemia Standing Ord. Dextrose (D10) 250 mls @ 750 mls/hr IV Q15M PRN; Protocol PRN Reason: per Hypoglycemia Standing Ord. Insulin Human Lispro (Insulin Lispro 100 Unit/Ml 3 Ml Vial) 0 unit SUBCUT QIDACHS [facility]; Protocol Last Admin: 03/12/24 07:50 Dose: Not Given Documented By: ANN Non-Admin Reason: No Insulin Coverage Magnesium Hydroxide (Milk Of Magnesia 30 Ml Oral.Susp) 30 ml PO DAILY PRN PRN Reason: Constipation Melatonin (Melatonin 3 Mg Tablet) 6 mg PO BEDTIME PRN PRN Reason: Insomnia Metoprolol Tartrate (Metoprolol Tartrate 50 Mg Tablet) 50 mg PO BID@0900,1700 [facility]; Protocol Last Admin: 03/12/24 10:11 Dose: 50 mg Documented By: ANN Multivitamins/Vitamin C (Multivitamin Tablet) 1 tab PO DAILY [facility] Last Admin: 03/12/24 10:15 Dose: 1 tab Documented By: ANN Non-Formulary Medication (Potassium Citrate) 5 meq PO BID@0900,1700 [facility] Omeprazole (Omeprazole 20 Mg Capsule.) 20 mg PO DAILY@0630 [facility] Last Admin: 03/12/24 06:19 Dose: 20 mg Documented By: SANTINO Ondansetron HCl (Ondansetron Hcl 4 Mg/2 Ml Vial) 4 mg IVPUSH Q8H PRN PRN Reason: Nausea and Vomiting Rivaroxaban (Rivaroxaban 15 Mg Tablet) 15 mg PO DAILY@1700 [facility] Tamsulosin HCl (Tamsulosin Hcl 0.4 Mg Capsule) 0.8 mg PO BEDTIME [facility] Labs 03/12/24 05:10 03/12/24 05:10 Labs: Laboratory Results - last 24 hr 03/11/24 03/11/24 03/11/24 16:12 17:30 21:22 MCV 94.7 MCH 31.4 MCHC 33.2 RDW 14.1 Plt Count 152 L MPV 9.5 Immature Gran % (Auto) 0.1 Neut % (Auto) 68.1 Lymph % (Auto) 19.3 L Terry % (Auto) 8.3 Eos % (Auto) 3.9 Baso % (Auto) 0.3 Lymph # (Auto) 1.4 Terry # (Auto) 0.6 Eos # (Auto) 0.3 Baso # (Auto) 0.0 Abs Immat Gran (auto) 0.01 Absolute Neuts (auto) 5.1 Absolute Nucleated RBC 0.000 Nucleated RBC % (auto) 0.0 PT 11.7 Whole Blood PT 12.9 INR 1.0 Whole Blood INR 1.1 APTT 35.1 Anion Gap 9 L Estim Creat Clear Calc 39.9 Estimated GFR 44 POC Glucose 179 H Random Glucose 126 H Estimat Average Glucose Hemoglobin A1c % Calcium 9.2 Troponin I High Sens < 2.7 Triglycerides 136 Cholesterol 140 LDL Cholesterol, Calc 59 HDL Cholesterol 54 Urine Color Yellow Urine Appearance Clear Urine pH 6.5 Ur Specific [place] 1.020 Urine Protein Trace Urine Glucose (UA) Negative Urine Ketones Negative Urine Blood Negative Urine Nitrite Negative Ur Leukocyte Esterase Negative Urine RBC 0-2 Urine WBC 0-5 Ur Squamous Epith Cells 0-2 Urine Bacteria None Seen Hyaline Casts 0-2 Ethyl Alcohol < 10 03/11/24 03/11/24 03/12/24 22:07 23:42 05:10 MCV 92.9 MCH 31.0 MCHC 33.3 RDW 13.9 Plt Count 163 MPV 10.2 Immature Gran % (Auto) 0.1 Neut % (Auto) 60.1 Lymph % (Auto) 25.4 Terry % (Auto) 9.0 Eos % (Auto) 5.1 H Baso % (Auto) 0.3 Lymph # (Auto) 1.9 Terry # (Auto) 0.7 Eos # (Auto) 0.4 Baso # (Auto) 0.0 Abs Immat Gran (auto) 0.01 Absolute Neuts (auto) 4.4 Absolute Nucleated RBC 0.000 Nucleated RBC % (auto) 0.0 PT Whole Blood PT INR Whole Blood INR APTT Anion Gap 12 Estim Creat Clear Calc 38.6 Estimated GFR 42 POC Glucose 145 H Random Glucose 120 H Estimat Average Glucose 128 Hemoglobin A1c % 6.1 H Calcium 9.4 Troponin I High Sens 2.8 Triglycerides 123 Cholesterol 141 LDL Cholesterol, Calc 61 HDL Cholesterol 56 Urine Color Urine Appearance Urine pH Ur Specific [place] Urine Protein Urine Glucose (UA) Urine Ketones Urine Blood Urine Nitrite Ur Leukocyte Esterase Urine RBC Urine WBC Ur Squamous Epith Cells Urine Bacteria Hyaline Casts Ethyl Alcohol 03/12/24 06:53 MCV MCH MCHC RDW Plt Count MPV Immature Gran % (Auto) Neut % (Auto) Lymph % (Auto) Terry % (Auto) Eos % (Auto) Baso % (Auto) Lymph # (Auto) Terry # (Auto) Eos # (Auto) Baso # (Auto) Abs Immat Gran (auto) Absolute Neuts (auto) Absolute Nucleated RBC Nucleated RBC % (auto) PT Whole Blood PT INR Whole Blood INR APTT Anion Gap Estim Creat Clear Calc Estimated GFR POC Glucose 121 H Random Glucose Estimat Average Glucose Hemoglobin A1c % Calcium Troponin I High Sens Triglycerides Cholesterol LDL Cholesterol, Calc HDL Cholesterol Urine Color Urine Appearance Urine pH Ur Specific [place] Urine Protein Urine Glucose (UA) Urine Ketones Urine Blood Urine Nitrite Ur Leukocyte Esterase Urine RBC Urine WBC Ur Squamous Epith Cells Urine Bacteria Hyaline Casts Ethyl Alcohol Assessment and Plan (1) Acute CVA (cerebrovascular accident): Status: Acute Plan 84-year-old male with a history of paroxysmal AFib on anticoagulation with Xarelto who presented on 03/11 with acute onset neurological changes. These had resolved by the time he was admitted, however now have recurred 1. Acute CVA MRI done, showing small infarct in the deep white matter of the central frontal lobe statin, xarelto (dosed appropriately per CrCl less than 50 neuro eval ? need for cardiac work up PT/OT/speech/swallow 2. PAF Currently appears to be in sinus Continue metoprolol and Xarelto 3. CKD, stage III Initially thought to be acute, however serum creatinine dating back to 2020 appears to be around 1.4-1.5 range Monitor 4. DM Point of cares and sliding scale 5. GERD PPI 6. BPH Flomax Full code DVT prophylaxis, Xarelto Quality Stroke Does the patient have a stroke diagnosis?: No VTE Prior VTE?: No VTE Risk Level:: Medical - moderate - high VTE Device Contraindication: Treatment Not Indicated VTE Drug Contraindication: N/A - Med Ordered
--- NOTE | 2024-03-12 12:25 | PHA.MEDREC ---
Pharmacy Consult ? Medication Reconciliation Pharmacy has completed the medication reconciliation. Med rec completed on 03/11. SPoke with both and patient who knew all meds/times they were taken. [facility] Patient confirmed he takes 4 units of lantus at bedtime. Patient was concerned he did not receive his evening medications on 03/11... Jose Guadalupe Yousif notified. RN also notified to give patients 1 x dose of xarelto bc the patient missed his dinner dose.
[2024-03-12 13:37] LABS: Glucose, Whole Blood 118 mg/dL (60-115)
--- NOTE | 2024-03-12 16:15 | PM.NEUROCN ---
History of Present Illness Data of Consult Service Date: 03/12/24 Primary Care Provider: Al Petit MD HPI Reason for consult: stroke with right sided weakness This is an 84-year-old male with a past medical history of atrial fibrillation on Xarelto, insulin-dependent diabetes and history of possible [place], who presented to the ED with right upper extremity and right lower extremity weakness and dysarthria beginning at 10:00. 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 Shortly after she did find him and they called EMS. He reports many episodes in the past year and a half with similar symptoms however they usually resolve fairly quickly. He denies any headache or symptoms leading up to the weakness this morning. MRI of the brain shows small acute left centrum semiovale subcortical infarct Review of Systems Review of Systems: Negative except HPI/interval history. Yes all other systems are reviewed and are negative Constitutional: Constitutional: Denies chills, Denies fatigue, Denies fever(s) and Denies headache(s) Eyes: Eyes: Denies change in vision ENT: Denies headache(s), Denies nasal congestion, Denies nasal discharge and Denies sore throat Cardiovascular: Cardiovascular: Denies chest pain, Denies rapid heart rate, Denies leg edema and Denies dyspnea Respiratory: Respiratory: Denies chest congestion, Denies cough, Denies dyspnea and Denies wheezing Gastrointestinal: Gastrointestinal: Denies constipation, Denies diarrhea, Denies nausea and Denies vomiting Genitourinary: Genitourinary: Denies dysuria and Denies urinary urgency Musculoskeletal: Musculoskeletal: Reports as per HPI Integumentary/Breasts: Skin/Breast: Denies rash Neurologic: Reports as per HPI, Denies confusion, Denies headache(s) and Denies memory loss Psychiatric: Psychiatric: Denies confusion and Denies memory loss Endocrine: Endocrine: Denies fatigue Hematologic/Lymphatic: Hematologic/Lymphatic: Denies easy bleeding and Denies easy bruising Allergic/Immunologic: Allergic/Immunologic: Denies wheezing [facility] Past Medical History Medical History (Updated 03/12/24 @ 11:55 by Landon Dillon MD) Obesity Hyperlipidemia associated with type 2 diabetes mellitus Diabetes mellitus Insulin dependent type 2 diabetes mellitus A-fib Family History Family History Father No problems noted. Mother No problems noted. Surgical History Surgical History History of left knee replacement Social History Social History (System 03/12/24 @ 07:49 by Dolly Lyn) Alcohol intake: current Alcohol intake frequency: a few times a week Patient Tobacco Use Status: Never used Tobacco service: Yes Meds Allergies Allergy/AdvReac Type Severity Reaction Status Date / Time metformin Allergy Diarrhea Verified 03/12/24 07:49 Active Medications: Current Medications Acetaminophen (Acetaminophen 325 Mg Tablet) 650 mg PO Q6H PRN PRN Reason: Pain, Mild 1-3,fever,headache Allopurinol (Allopurinol 300 Mg Tablet) 300 mg PO DAILY [facility] Last Admin: 03/12/24 10:15 Dose: 300 mg Ascorbic Acid (Ascorbic Acid 500 Mg Tablet) 500 mg PO DAILY [facility] Last Admin: 03/12/24 10:15 Dose: 500 mg Aspirin (Aspirin Enteric Coated 81 Mg Tablet.Dr) 81 mg PO DAILY [facility] Last Admin: 03/12/24 10:12 Dose: 81 mg Atorvastatin Calcium (Atorvastatin Calcium 40 Mg Tablet) 40 mg PO DAILY [facility] Last Admin: 03/12/24 10:13 Dose: 40 mg Calcium Carbonate (Calcium Carbonate 750 Mg Tab.Chew) 750 mg PO Q4H PRN PRN Reason: Heartburn Fluticasone Propionate (Fluticasone Propionate Nasal 16 Gm [place]) 2 spray NOSTRIL-B DAILY [facility] Last Admin: 03/12/24 10:15 Dose: Not Given Glucose (Glucose Gel 15 Gm Gel..Gram.) 15 gm PO Q15M PRN; Protocol PRN Reason: per Hypoglycemia Standing Ord. Dextrose (D10) 250 mls @ 750 mls/hr IV Q15M PRN; Protocol PRN Reason: per Hypoglycemia Standing Ord. Insulin Human Lispro (Insulin Lispro 100 Unit/Ml 3 Ml Vial) 0 unit SUBCUT QIDACHS [facility]; Protocol Last Admin: 03/12/24 14:29 Dose: Not Given Magnesium Hydroxide (Milk Of Magnesia 30 Ml Oral.Susp) 30 ml PO DAILY PRN PRN Reason: Constipation Melatonin (Melatonin 3 Mg Tablet) 6 mg PO BEDTIME PRN PRN Reason: Insomnia Metoprolol Tartrate (Metoprolol Tartrate 50 Mg Tablet) 50 mg PO BID@0900,1700 [facility]; Protocol Last Admin: 03/12/24 10:11 Dose: 50 mg Multivitamins/Vitamin C (Multivitamin Tablet) 1 tab PO DAILY [facility] Last Admin: 03/12/24 10:15 Dose: 1 tab Non-Formulary Medication (Potassium Citrate) 5 meq PO BID@0900,1700 [facility] Omeprazole (Omeprazole 20 Mg Capsule.Dr) 20 mg PO DAILY@0630 [facility] Last Admin: 03/12/24 06:19 Dose: 20 mg Ondansetron HCl (Ondansetron Hcl 4 Mg/2 Ml Vial) 4 mg IVPUSH Q8H PRN PRN Reason: Nausea and Vomiting Rivaroxaban (Rivaroxaban 15 Mg Tablet) 15 mg PO DAILY@1700 [facility] Tamsulosin HCl (Tamsulosin Hcl 0.4 Mg Capsule) 0.8 mg PO BEDTIME [facility] Home Medications ?Medication ?Instructions ?Recorded ?Confirmed ?Last Taken ?Type allopurinol 300 mg tablet 300 mg PO DAILY 03/11/24 03/11/24 03/11/24 History ascorbic acid (vitamin C) 500 mg 500 mg PO DAILY 03/11/24 03/11/24 03/11/24 History tablet fluticasone propionate 50 2 spray intranasal DAILY 03/11/24 03/11/24 03/11/24 History mcg/actuation nasal spray,suspension insulin glargine-yfgn 100 unit/mL 4 unit subcut BEDTIME 03/11/24 03/11/24 03/10/24 History (3 mL) subcutaneous pen metoprolol tartrate 50 mg tablet 50 mg PO BID@0900,1700 03/11/24 03/11/24 03/11/24 History mv-mn-folic 200 mcg-vit K 15 1 cap PO BID 03/11/24 03/11/24 03/11/24 History mcg-lutein 5 mg-zeaxanthin 1 mg capsule (PreserVision AREDS 2 Plus Multivit) omeprazole 20 mg capsule,delayed 20 mg PO DAILY@0630 03/11/24 03/11/24 03/11/24 History release potassium citrate 5 mEq (540 mg) 5 meq PO BID@0900,1700 03/11/24 03/11/24 03/11/24 History tablet,extended release rivaroxaban 15 mg tablet 15 mg PO DAILY@1700 03/11/24 03/11/24 03/10/24 History rosuvastatin 20 mg tablet 30 mg PO DAILY@1700 03/11/24 03/11/24 03/10/24 History semaglutide 0.25 mg or 0.5 mg (2 0.25 mg subcut SA@0900 03/11/24 03/11/24 03/09/24 History mg/3 mL) subcutaneous pen injector tamsulosin 0.4 mg capsule 0.8 mg PO BEDTIME 03/11/24 03/11/24 03/10/24 History Physical Exam Vital Signs: Vital Signs: Last Vital Signs Temp 97.7 F 03/12/24 10:14 Pulse 59 03/12/24 13:32 Resp 13 03/12/24 13:32 BP 158/77 H 03/12/24 13:32 Pulse Ox 95 03/12/24 13:32 O2 Del Method Room Air 03/12/24 13:32 BMI result Body Mass Index 32.1 Const: Other: General - no acute distress, appears comfortable Cardiovascular - regular rate and rhythm, S1-S2 Lungs - normal respiratory effort, clear to auscultation bilaterally, no wheezing Abdomen - soft, nontender, no rebound or guarding Extremities - no edema bilaterally Neuro - awake and alert, positive facial droop, right-sided weakness upper extremity greater than lower; speech mildly dysarthric General: No confusion Orientation/consciousness: No confusion Neuro: Other: Mild dysarthria. Alert and oriented x3. No dysphagia. Subtle pronation drift of the right upper extremity. Strength right upper extremity 5 minus/5 General: No confusion Results Labs 03/12/24 05:10 03/12/24 05:10 Labs: Short CBC 03/11/24 03/12/24 Range/Units 17:30 05:10 WBC 7.5 7.3 (4.8-10.8) X10*3/uL Hgb 13.6 L 14.0 (14.0-18.0) g/dl Hct 41.0 L 42.0 (42.0-52.0) % Plt Count 152 L 163 (160-400) X10*3/uL BMP 03/11/24 03/12/24 17:30 05:10 Sodium 140 141 Potassium 4.4 4.0 Chloride 110 H 111 H Carbon Dioxide 25 22 BUN 16 16 Creatinine 1.52 H 1.57 H Calcium 9.2 9.4 Urine 03/11/24 Range/Units 21:22 Urine Color Yellow Urine Appearance Clear Urine pH 6.5 (5.0-9.0) Ur Specific [place] 1.020 (1.005-1.025) Urine Protein Trace (Neg-Trace) mg/dL Urine Glucose (UA) Negative (Negative) mg/dL Assessment and Plan (1) Acute CVA (cerebrovascular accident): Status: Acute Small subcortical left centrum semiovale ischemic infacrt presumably from atrial fib. In view of recurrent left hemisphere ischemic events, we need to make sure there is no critical left ICA stenosis either in the neck or intracranially. Recom.: Continue Xarelto. MRA of head and neck. Consider adding ASA 81mg. Speech therapy Plan 84-year-old male with a history of paroxysmal AFib on anticoagulation with Xarelto who presented on 03/11 with acute onset neurological changes. These had resolved by the time he was admitted, however now have recurred 1. Acute CVA MRI done, showing small infarct in the deep white matter of the central frontal lobe statin, xarelto (dosed appropriately per CrCl less than 50 neuro eval ? need for cardiac work up PT/OT/speech/swallow 2. PAF Currently appears to be in sinus Continue metoprolol and Xarelto 3. CKD, stage III Initially thought to be acute, however serum creatinine dating back to 2020 appears to be around 1.4-1.5 range Monitor 4. DM Point of cares and sliding scale 5. GERD PPI 6. BPH Flomax Full code DVT prophylaxis, Xarelto Procedures Date of Service Date of Service: 03/12/24
[2024-03-12 17:52] LABS: Glucose, Whole Blood 131 mg/dL (60-115)
[2024-03-12 19:51] LABS: Glucose, Whole Blood 154 mg/dL (60-115)
[2024-03-12] MEDS: Tamsulosin HCL 0.4 MG CAPSULE 0.8 MG PO (20:24)
[2024-03-12] MEDS: Insulin Lispro 100 UNIT/ML 3 ML VIAL SUBCUT (20:24)
[2024-03-12] MEDS: Acetaminophen 325 MG TABLET 650 MG PO (22:44)
[2024-03-13 03:13] VITALS: BP 131/63; PULSE 66; RESP 18; TEMP 36.7; O2SAT 98
[2024-03-13] MEDS: Omeprazole 20 MG CAPSULE.DR PO (06:21)
[2024-03-13 07:08] LABS: Glucose, Whole Blood 150 mg/dL (60-115)
[2024-03-13 07:19] VITALS: BP 106/61; PULSE 96; RESP 18; TEMP 36.3; O2SAT 93
[2024-03-13] MEDS: Metoprolol Tartrate 50 MG TABLET PO ×2 (08:25→16:48)
[2024-03-13] MEDS: Multivitamin TABLET 1 TAB PO (08:25)
[2024-03-13] MEDS: Ascorbic Acid 500 MG TABLET PO (08:25)
[2024-03-13] MEDS: Atorvastatin Calcium 40 MG TABLET PO (08:25)
[2024-03-13] MEDS: allopurinoL 300 MG TABLET PO (08:25)
[2024-03-13] MEDS: Fluticasone Propionate Nasal 16 GM SPRAY 2 SPRAY NOSTRIL-B (08:25)
[2024-03-13] MEDS: Aspirin Enteric Coated 81 MG TABLET.DR PO (08:25)
[2024-03-13 11:21] LABS: Glucose, Whole Blood 193 mg/dL (60-115)
[2024-03-13 11:27] VITALS: BP 122/69; PULSE 63; RESP 18; TEMP 36.8; O2SAT 95
[2024-03-13] MEDS: Insulin Lispro 100 UNIT/ML 3 ML VIAL SUBCUT (11:30)
--- NOTE | 2024-03-13 11:46 | P.PNIM_ITS ---
Subjective Subjective Date of Service: 03/13/24 Interval History: Patient seen and examined this a.m. bedside Patient reports right-sided weakness Feels weakness on right side of face, often biting his right cheek while eating Per speech is abnormal Review of Systems Negative except HPI/interval history. Physical Exam 2 Vital Signs: Vital Signs: Last Vital Signs Temp 98.3 F 03/13/24 11:27 Pulse 63 03/13/24 11:27 Resp 18 03/13/24 11:27 BP 122/69 03/13/24 11:27 Pulse Ox 95 03/13/24 11:27 O2 Del Method Room Air 03/13/24 11:27 BMI result Body Mass Index 32.1 Appearing in no acute distress lung sounds are clear to auscultation heart regular rate rhythm, clear S1, S2 positive bowel sounds, abdomen is soft, nontender neuro patient is alert x3, no focal deficits Objective Data Active Medications Acetaminophen (Acetaminophen 325 Mg Tablet) 650 mg PO Q6H PRN PRN Reason: Pain, Mild 1-3,fever,headache Last Admin: 03/12/24 22:44 Dose: 650 mg Documented By: DEVON Allopurinol (Allopurinol 300 Mg Tablet) 300 mg PO DAILY [facility] Last Admin: 03/13/24 08:25 Dose: 300 mg Documented By: SHOBHA Ascorbic Acid (Ascorbic Acid 500 Mg Tablet) 500 mg PO DAILY [facility] Last Admin: 03/13/24 08:25 Dose: 500 mg Documented By: SHOBHA Aspirin (Aspirin Enteric Coated 81 Mg Tablet.) 81 mg PO DAILY [facility] Last Admin: 03/13/24 08:25 Dose: 81 mg Documented By: SHOBHA Atorvastatin Calcium (Atorvastatin Calcium 40 Mg Tablet) 40 mg PO DAILY [facility] Last Admin: 03/13/24 08:25 Dose: 40 mg Documented By: SHOBHA Calcium Carbonate (Calcium Carbonate 750 Mg Tab.Chew) 750 mg PO Q4H PRN PRN Reason: Heartburn Fluticasone Propionate (Fluticasone Propionate Nasal 16 Gm [place]) 2 spray NOSTRIL-B DAILY [facility] Last Admin: 03/13/24 08:25 Dose: 2 spray Documented By: SHOBHA Glucose (Glucose Gel 15 Gm Gel..Gram.) 15 gm PO Q15M PRN; Protocol PRN Reason: per Hypoglycemia Standing Ord. Dextrose (D10) 250 mls @ 750 mls/hr IV Q15M PRN; Protocol PRN Reason: per Hypoglycemia Standing Ord. Insulin Human Lispro (Insulin Lispro 100 Unit/Ml 3 Ml Vial) 0 unit SUBCUT QIDACHS [facility]; Protocol Last Admin: 03/13/24 11:30 Dose: 2 unit Documented By: SHOBHA Magnesium Hydroxide (Milk Of Magnesia 30 Ml Oral.Susp) 30 ml PO DAILY PRN PRN Reason: Constipation Melatonin (Melatonin 3 Mg Tablet) 6 mg PO BEDTIME PRN PRN Reason: Insomnia Metoprolol Tartrate (Metoprolol Tartrate 50 Mg Tablet) 50 mg PO BID@0900,1700 [facility]; Protocol Last Admin: 03/13/24 08:25 Dose: 50 mg Documented By: SHOBHA Multivitamins/Vitamin C (Multivitamin Tablet) 1 tab PO DAILY [facility] Last Admin: 03/13/24 08:25 Dose: 1 tab Documented By: SHOBHA Omeprazole (Omeprazole 20 Mg Capsule.) 20 mg PO DAILY@0630 [facility] Last Admin: 03/13/24 06:21 Dose: 20 mg Documented By: DEVON Ondansetron HCl (Ondansetron Hcl 4 Mg/2 Ml Vial) 4 mg IVPUSH Q8H PRN PRN Reason: Nausea and Vomiting Rivaroxaban (Rivaroxaban 15 Mg Tablet) 15 mg PO DAILY@1700 [facility] Last Admin: 03/12/24 18:02 Dose: 15 mg Documented By: SHOBHA Tamsulosin HCl (Tamsulosin Hcl 0.4 Mg Capsule) 0.8 mg PO BEDTIME [facility] Last Admin: 03/12/24 20:24 Dose: 0.8 mg Documented By: DEVON Labs 03/12/24 05:10 03/12/24 05:10 Labs: Laboratory Results - last 24 hr 03/12/24 03/12/24 03/12/24 13:30 17:46 19:28 POC Glucose 118 H 131 H 154 H 03/13/24 03/13/24 07:05 11:18 POC Glucose 150 H 193 H Assessment and Plan (1) Acute CVA (cerebrovascular accident): Status: Acute Plan 84-year-old male with a history of paroxysmal AFib on anticoagulation with Xarelto who presented on 03/11 with acute onset neurological changes. These had resolved by the time he was admitted, however now have recurred Acute CVA MRI done, showing small infarct in the deep white matter of the central frontal lobe statin, xarelto (dosed appropriately per CrCl less than 50 neuro eval> rec EEG and MRA head and neck PT/OT rec Acute rehab speech/swallow eval pending PAF Currently appears to be in sinus Continue metoprolol and Xarelto CKD, stage III Initially thought to be acute, however serum creatinine dating back to 2020 appears to be around 1.4-1.5 range Monitor DM 2 ss GERD PPI BPH Flomax Full code DVT prophylaxis, Xarelto DISPO to acute rehab when medically clear Quality Stroke Does the patient have a stroke diagnosis?: No VTE Prior VTE?: No VTE Risk Level:: Medical - moderate - high VTE Device Contraindication: Treatment Not Indicated VTE Drug Contraindication: N/A - Med Ordered
[2024-03-13] MEDS: gadobutroL 10 ML VIAL IVPUSH (13:14)
--- NOTE | 2024-03-13 13:57 | MHC.SLORD ---
Speech Language Pathology Order Status: Pt was at repeat MRI this afternoon, lunch held. Upon pt return from MRI at bedside. MACHINES TECHNICIAN reviewed current recc and provided suggestions to reduce incidence of biting lip during PO. Pt is a candidate for dysarhria tx in post-acute setting.
[2024-03-13 15:23] VITALS: BP 109/62; PULSE 61; RESP 18; TEMP 36.4; O2SAT 94
[2024-03-13 15:57] LABS: Glucose, Whole Blood 144 mg/dL (60-115)
[2024-03-13] MEDS: Rivaroxaban 15 MG TABLET PO (16:48)
[2024-03-13 19:59] VITALS: BP 134/67; PULSE 78; RESP 20; TEMP 36.7; O2SAT 96
[2024-03-13] MEDS: Tamsulosin HCL 0.4 MG CAPSULE 0.8 MG PO (21:34)
[2024-03-14] VITALS (7 sets, daily range): BP systolic 106–149; BP diastolic 58–69; PULSE 55–79; RESP 16–18; TEMP 36.2–37; O2SAT 94–99
[2024-03-14 02:38] LABS: Glucose, Whole Blood 163 mg/dL (60-115)
[2024-03-14] MEDS: Omeprazole 20 MG CAPSULE.DR PO (05:52)
[2024-03-14 06:54] LABS: Glucose, Whole Blood 128 mg/dL (60-115)
[2024-03-14] MEDS: Metoprolol Tartrate 50 MG TABLET PO ×2 (08:54→17:06)
[2024-03-14] MEDS: allopurinoL 300 MG TABLET PO (08:55)
[2024-03-14] MEDS: Atorvastatin Calcium 40 MG TABLET PO (08:55)
[2024-03-14] MEDS: Multivitamin TABLET 1 TAB PO (08:55)
[2024-03-14] MEDS: Fluticasone Propionate Nasal 16 GM SPRAY 2 SPRAY NOSTRIL-B (08:55)
[2024-03-14] MEDS: Ascorbic Acid 500 MG TABLET PO (08:55)
[2024-03-14] MEDS: Aspirin Enteric Coated 81 MG TABLET.DR PO (08:55)
--- NOTE | 2024-03-14 10:35 | HO.PM.IMPN ---
Subjective Subjective Date of Service: 03/14/24 Interval History: seen and examined reports speech is improving facial weakness also better, not biting cheek as freq. denies new issues Review of Systems Negative except HPI/interval history. Physical Exam Vital Signs: Vital Signs: Last Vital Signs Temp 98.5 F 03/14/24 07:06 Pulse 55 03/14/24 07:06 Resp 18 03/14/24 07:06 BP 116/58 L 03/14/24 07:06 Pulse Ox 95 03/14/24 07:06 O2 Del Method Room Air 03/14/24 07:06 BMI result Body Mass Index 32.1 Const: Other: General - no acute distress, appears comfortable Cardiovascular - regular rate and rhythm, S1-S2 Lungs - normal respiratory effort, clear to auscultation bilaterally, no wheezing Abdomen - soft, nontender, no rebound or guarding Extremities - no edema bilaterally Neuro - awake and alert, positive facial droop - mild now, right-sided weakness upper extremity greater than lower - improved; speech mildly dysarthric - more clear today Objective Data Active Medications Acetaminophen (Acetaminophen 325 Mg Tablet) 650 mg PO Q6H PRN PRN Reason: Pain, Mild 1-3,fever,headache Last Admin: 03/12/24 22:44 Dose: 650 mg Documented By: DEVON Allopurinol (Allopurinol 300 Mg Tablet) 300 mg PO DAILY [facility] Last Admin: 03/14/24 08:55 Dose: 300 mg Documented By: MATHEW Ascorbic Acid (Ascorbic Acid 500 Mg Tablet) 500 mg PO DAILY [facility] Last Admin: 03/14/24 08:55 Dose: 500 mg Documented By: MATHEW Aspirin (Aspirin Enteric Coated 81 Mg Tablet.Dr) 81 mg PO DAILY [facility] Last Admin: 03/14/24 08:55 Dose: 81 mg Documented By: MATHEW Atorvastatin Calcium (Atorvastatin Calcium 40 Mg Tablet) 40 mg PO DAILY [facility] Last Admin: 03/14/24 08:55 Dose: 40 mg Documented By: MATHEW Calcium Carbonate (Calcium Carbonate 750 Mg Tab.Chew) 750 mg PO Q4H PRN PRN Reason: Heartburn Fluticasone Propionate (Fluticasone Propionate Nasal 16 Gm [place]) 2 spray NOSTRIL-B DAILY [facility] Last Admin: 03/14/24 08:55 Dose: 2 spray Documented By: MATHEW Glucose (Glucose Gel 15 Gm Gel..Gram.) 15 gm PO Q15M PRN; Protocol PRN Reason: per Hypoglycemia Standing Ord. Dextrose (D10) 250 mls @ 750 mls/hr IV Q15M PRN; Protocol PRN Reason: per Hypoglycemia Standing Ord. Insulin Human Lispro (Insulin Lispro 100 Unit/Ml 3 Ml Vial) 0 unit SUBCUT QIDACHS [facility]; Protocol Last Admin: 03/14/24 07:28 Dose: Not Given Documented By: MATHEW Non-Admin Reason: No Insulin Coverage Magnesium Hydroxide (Milk Of Magnesia 30 Ml Oral.Susp) 30 ml PO DAILY PRN PRN Reason: Constipation Melatonin (Melatonin 3 Mg Tablet) 6 mg PO BEDTIME PRN PRN Reason: Insomnia Metoprolol Tartrate (Metoprolol Tartrate 50 Mg Tablet) 50 mg PO BID@0900,1700 [facility]; Protocol Last Admin: 03/14/24 08:54 Dose: 50 mg Documented By: MATHEW Multivitamins/Vitamin C (Multivitamin Tablet) 1 tab PO DAILY [facility] Last Admin: 03/14/24 08:55 Dose: 1 tab Documented By: MATHEW Omeprazole (Omeprazole 20 Mg Capsule.) 20 mg PO DAILY@0630 [facility] Last Admin: 03/14/24 05:52 Dose: 20 mg Documented By: TINE Ondansetron HCl (Ondansetron Hcl 4 Mg/2 Ml Vial) 4 mg IVPUSH Q8H PRN PRN Reason: Nausea and Vomiting Rivaroxaban (Rivaroxaban 15 Mg Tablet) 15 mg PO DAILY@1700 [facility] Last Admin: 03/13/24 16:48 Dose: 15 mg Documented By: SHOBHA Tamsulosin HCl (Tamsulosin Hcl 0.4 Mg Capsule) 0.8 mg PO BEDTIME [facility] Last Admin: 03/13/24 21:34 Dose: 0.8 mg Documented By: TIEN Labs 03/12/24 05:10 03/12/24 05:10 Labs: Laboratory Results - last 24 hr 03/13/24 03/13/24 03/13/24 11:18 15:54 20:39 POC Glucose 193 H 144 H 163 H 03/14/24 06:50 POC Glucose 128 H Assessment and Plan (1) Acute CVA (cerebrovascular accident): Status: Acute Plan 84-year-old male with a history of paroxysmal AFib on anticoagulation with Xarelto who presented on 03/11 with acute onset neurological changes. These had resolved by the time he was admitted, however now have recurred Acute CVA MRI done, showing small infarct in the deep white matter of the central frontal lobe statin, xarelto (dosed appropriately per CrCl less than 50), aspirin added neuro eval MRA head/neck PT/OT rec Acute rehab speech/swallow eval PAF Currently appears to be in sinus Continue metoprolol and Xarelto CKD, stage III Initially thought to be acute, however serum creatinine dating back to 2020 appears to be around 1.4-1.5 range Monitor DM 2 ss GERD PPI BPH Flomax Full code DVT prophylaxis, Xarelto Rehab once medically cleared (pending MRA results) Quality Stroke Does the patient have a stroke diagnosis?: No VTE Prior VTE?: No VTE Risk Level:: Medical - moderate - high VTE Device Contraindication: Treatment Not Indicated VTE Drug Contraindication: N/A - Med Ordered
[2024-03-14 11:43] LABS: Glucose, Whole Blood 167 mg/dL (60-115)
[2024-03-14] MEDS: Insulin Lispro 100 UNIT/ML 3 ML VIAL SUBCUT ×3 (11:47→21:14)
--- NOTE | 2024-03-14 12:16 | PM.DS ---
DS: Providers Provider Date of Service: 03/15/24 Date of admission: 03/11/24 20:06 Date of discharge: 03/15/24 Primary care physician: Al Petit MD Consults: 03/11/24 20:06 Consult to Neurology Routine Consulting Provider: [facility] Reason for consultation: ?cva DS: Diagnosis Discharge Diagnosis (1) Acute CVA (cerebrovascular accident): Status: Acute DS: Summary Hospital Course Hospital Course: HPI from admission H&P: Patient is an 84-year-old male with a past medical history significant for atrial fibrillation on Xarelto, insulin-dependent diabetes and history of possible [place], who presented to the ED today with right upper extremity and right lower extremity weakness and dysarthria beginning at 10:00. He reports that he was working in his office and noticed the upper extremity weakness and try to find his but was unable to ambulate to find her in unable to call her name due to the dysarthria. Shortly after she did find him and they called EMS. He reports many episodes in the past year and a half with similar symptoms however they usually resolve fairly quickly. He denies any headache or symptoms leading up to the weakness this morning. Hospital Course: Patient was admitted for acute stroke. MRI confirmed the diagnosis. He was evaluated by Neurology. Telemetry was unrevealing. CTA and MRA of the head and neck were unremarkable. Initially the patient was evaluated by Physical therapy/Occupational therapy with plans for acute rehab. However over the course of his hospitalization his symptoms have significantly improved and now will be discharged home with [facility] services. He will need speech therapy as well. He is tolerating solid diet. In regards to the cause of his stroke, the patient is on Xarelto at the appropriate dose given his renal function. After discussion with Neurology, given his stroke while on Xarelto, this will be deemed as Xarelto failure. Neurology recommended changing anticoagulation. He will be discharged on Eliquis along with aspirin. The patients hospital course was complicated by LYNN. Initially his presenting was felt to be acute in nature, however prior histories indicated this was around his baseline. However, renal function acutely worsened in the hospital with a presenting SCr of 1.5, increasing to over 2. He was treated with IVF and his SCr has improved to 1.8. He has been encouraged oral hydration and should have repeat blood work in 1-2 weeks. Time Attestation Discharge Coordination Time (in mins): 45 Quality: Safe Use of Opioids Does Pt have an Active Cancer Diagnosis on the Problem List?: No Quality: Stroke Does the patient have a stroke diagnosis?: Yes Reason for No Anti-thrombotic at DC: N/A - Med Ordered Reason for No Anticoagulant at DC: N/A - Med Ordered Reason Not Initiating IV-Tpa: Drug treatment not indicated Reason for No Anti-thrombotic by Day Two: N/A - Med Ordered Reason for No Statin at DC: N/A - Med Ordered Physical Exam Vital Signs: Vital Signs: Last Vital Signs Temp 98.3 F 03/14/24 11:04 Pulse 59 03/14/24 11:04 Resp 18 03/14/24 11:04 BP 118/65 03/14/24 11:04 Pulse Ox 94 03/14/24 11:04 O2 Del Method Room Air 03/14/24 11:04 BMI result Body Mass Index 32.1 Const: Other: General - no acute distress, appears comfortable Cardiovascular - regular rate and rhythm, S1-S2 Lungs - normal respiratory effort, clear to auscultation bilaterally, no wheezing Abdomen - soft, nontender, no rebound or guarding Extremities - no edema bilaterally Neuro - awake and alert, mildly dysarthric speech, subtle pronator drift on the right upper extremity otherwise strength 5/5 DS: Data Data Completed and Pending Labs on day of discharge: Laboratory Results - last 24 hr 03/13/24 03/13/24 03/14/24 15:54 20:39 06:50 POC Glucose 144 H 163 H 128 H 03/14/24 10:49 POC Glucose 167 H Discharge Plan Discharge Anticipated Discharge Date/Time: 03/15/24 09:16 Patient Disposition: Home Health Service Discharge Diagnosis: Acute CVA Referrals: [facility] [Outside] - 1 Week Al Petit MD [Primary Care Provider] - 1 Week Discharge Medications: New aspirin 81 mg Tablet,Delayed Release (Dr/Ec) 81 mg PO DAILY Qty: 90 0RF Eliquis 2.5 mg Tablet 2.5 mg PO BID Qty: 60 0RF Continued ascorbic acid (vitamin C) 500 mg Tablet 500 mg PO DAILY tamsulosin 0.4 mg Capsule 0.8 mg PO BEDTIME metoprolol tartrate 50 mg tablet 50 mg PO BID@0900,1700 omeprazole 20 mg Capsule,Delayed Release(Dr/Ec) 20 mg PO DAILY@0630 allopurinol 300 mg Tablet 300 mg PO DAILY fluticasone propionate 50 mcg/actuation [place],Suspension 2 spray INTRANASAL DAILY Rx Instructions: administer into each nostril potassium citrate 5 mEq (540 mg) Tablet Extended Release 5 meq PO BID@0900,1700 rosuvastatin 20 mg Tablet 30 mg PO DAILY@1700 Rx Instructions: 1.5 tablets insulin glargine-yfgn 100 unit/mL (3 mL) Insulin Pen 4 unit SUBCUT BEDTIME semaglutide 0.25 mg or 0.5 mg (2 mg/3 mL) Pen Injector 0.25 mg SUBCUT SA@0900 Rx Instructions: for 4 weeks PreserVision AREDS 2 Plus MV 200 mcg-15 mcg- 5 mg-1 mg Capsule 1 cap PO BID trazodone 100 mg tablet 100 mg PO BEDTIME PRN (Reason: sleep) Qty: 90 8RF Discontinued rivaroxaban 15 mg Tablet 15 mg PO DAILY@1700 Rx Instructions: must administer with evening meal Discharge Orders: Discharge Order (Routine); Ordered 03/15/24 Ordered By: Landon Dillon Diet: Advance to usual diet Activity on Discharge: As tolerated Stand Alone Forms: Patient Portal Discharge page Print Language: Greek Care Plan Goals: To continue PT/OT/Speech therapy for acute CVA Health Concerns: see discharge summary Plan of Treatment: see discharge summary Assessment: see discharge summary
--- NOTE | 2024-03-14 12:32 | MHC.SL.SWA ---
Speech Pathologist Impression: Mild Oral Phase Dysphagia d/t R sided facial weakness Risk of Aspiration Due to: None Dysphasia Diet Status: Liquid Consistency and Strategies for Safe Swallow: Liquid Intake Recommendation: Thin Liquid Intake Strategies: Unrestricted Solid Food Consistency: Dietary Recommendations: Regular Additional Modifications to Solid Foods: Oral Medication Intake: Whole with Liquid Please contact the pharmacy regarding appropriate crushable or liquid drug formulations that are available whenever modified delivery is recommended. Compensatory Strategies and Precautions to be Taken for Safe Swallow: Sitting Upright (90 deg) Small Bites and Sips Alternate Liquids/Solids Rate of Ingestion Change Avoid Specific Foods Supervision While Eating and Drinking for Safe Swallow: None Needed Foods to Avoid: Hard to chew solids Swallowing Recommended Treatments: Oral Motor Exercises Compens. Strategy Educat. Recommendation for Speech: Speech Therapy through [facility] Comment: Rec continued skilled ST intervention at d/c to address dysarthria and dysphagia Frequency/Duration: Date Range for Service Req: Timeline to reassess: Furnace Repairer Helper Clinican/Clinical Fellow: No Supervisory Statement: I have reviewed and agree with the student/clinical fellow's documentation: N/A Speech Language Pathologist: Ginny Bustillo M.S., CCC-CHEF PASSENGER VESSEL
[2024-03-14 13:00] LABS: Anion Gap 13 (12-20); Blood Urea Nitrogen 26 mg/dL (9-16); Calcium 9.5 mg/dL (8.4-10.2); Carbon Dioxide 21 mmol/L (22-29); Chloride 111 mmol/L (96-108); Estimated Glomerular Filt Rate 32; Glucose Random 153 mg/dL (60-115); Sodium 141 mmol/L (135-145)
[2024-03-14] MEDS: Lactated Ringers 1,000 ML 100 ML IVCONT ×2 (14:14→23:47)
--- NOTE | 2024-03-14 15:18 | MHC.CM.PN ---
EMR reviewed and per MD rounds, pt is not medically cleared for discharge due to monitoring renal functions. Discharge plan is for pt to go home tomorrow with new NA services.
[2024-03-14 16:56] LABS: Glucose, Whole Blood 190 mg/dL (60-115)
[2024-03-14] MEDS: Apixaban 2.5 MG TABLET PO (20:03)
[2024-03-14] MEDS: Tamsulosin HCL 0.4 MG CAPSULE 0.8 MG PO (20:04)
[2024-03-14 20:53] LABS: Glucose, Whole Blood 159 mg/dL (60-115)
[2024-03-15 04:00] VITALS: BP 134/64; PULSE 69; RESP 16; TEMP 36.6; O2SAT 96
[2024-03-15] MEDS: Omeprazole 20 MG CAPSULE.DR PO (06:08)
[2024-03-15 07:22] VITALS: BP 139/69; PULSE 56; RESP 18; TEMP 36.7; O2SAT 95
[2024-03-15 07:36] LABS: Glucose, Whole Blood 109 mg/dL (60-115)
[2024-03-15 07:46] LABS: Anion Gap 10 (12-20); Blood Urea Nitrogen 27 mg/dL (9-16); Carbon Dioxide 21 mmol/L (22-29); Chloride 112 mmol/L (96-108); Creatinine Clr Calc Pharmacy 32.9; Estimated Glomerular Filt Rate 35; Glucose Random 109 mg/dL (60-115); Potassium 3.8 mmol/L (3.3-5.1); Sodium 139 mmol/L (135-145)
[2024-03-15 08:03] LABS: Calcium 9.2 mg/dL (8.4-10.2)
[2024-03-15] MEDS: Atorvastatin Calcium 40 MG TABLET PO (08:33)
[2024-03-15] MEDS: Multivitamin TABLET 1 TAB PO (08:33)
[2024-03-15] MEDS: allopurinoL 300 MG TABLET PO (08:34)
[2024-03-15] MEDS: Apixaban 2.5 MG TABLET PO (08:34)
[2024-03-15] MEDS: Ascorbic Acid 500 MG TABLET PO (08:34)
[2024-03-15] MEDS: Metoprolol Tartrate 50 MG TABLET PO (08:34)
[2024-03-15] MEDS: Aspirin Enteric Coated 81 MG TABLET.DR PO (08:34)
[2024-03-15] MEDS: Fluticasone Propionate Nasal 16 GM SPRAY 2 SPRAY NOSTRIL-B (08:39)
--- NOTE | 2024-03-15 09:47 | W.MHC.F2F ---
Service Date Service Date: 03/15/24 Encounter Date of encounter: 03/15/24 Reasons for Services Signs and symptoms assessed: PT/OT/Speech Reason for physical therapy: home safety and mobility, therapeutic exercises and gait/transfer training Reason for occupational therapy: home safety and mobility, therapeutic exercises and gait/transfer training Reason for speech therapy: speech impairment Overseeing Care: Neri Montez Homebound: Leaving the home is medically contraindicated at this time without the asist of a device and/or another person due th the listed conditions above and below. Reason homebound: unsteady gait / fall risk (recent stroke) Homebound supporting statement: Pt with recent stroke at risk for call, needs home pt/ot/speech Certification: Based on the above findings, I certify that this patient is confined to the home and needs intermittent half-way care, physical therapy and/or speech therapy, or continues to need occupational therapy. The patient is under my care, and I have initiated the establishment of the plan of care. The patient will be followed by a physician who will periodically review the plan of care. Time Spent With Patient Time: Total time managing care of this patient today ____ minutes.
--- NOTE | 2024-03-15 10:22 | MHC.CM.PN ---
Second IMM given 03/15. Pt is medically cleared for discharge home today with new [facility] services, pts will transport him home.
[2024-03-15 11:03] VITALS: BP 128/68; PULSE 64; RESP 18; TEMP 37.1; O2SAT 98
[2024-03-15 20:52] LABS: Glucose, Whole Blood 177 mg/dL (60-115)
== END 2024-03-15 12:18 | disposition home health service (06) | DRG 65 ==
LOC: HO.ED 19:55 → HO.EDOVER 20:36 → HO.IMC 03-12 16:29
PROVIDERS: Nurse Practitioner Acute Care; Admitting Provider Student in an Organized Health Care Education/Training Program; Emergency Provider Student in an Organized Health Care Education/Training Program; PCP Internal Medicine; Visit Provider Family Medicine
DX: I63.9 Cerebral infarction, unspecified (principal); G81.91 Hemiplegia, unspecified affecting right dominant side; N17.9 Acute kidney failure, unspecified; R47.81 Slurred speech; K21.9 Gastro-esophageal reflux disease without esophagitis; R29.703 NIHSS score 3; I48.0 Paroxysmal atrial fibrillation; N40.0 Benign prostatic hyperplasia without lower urinary tract symptoms; N18.30 Chronic kidney disease, stage 3 unspecified; E11.22 Type 2 diabetes mellitus with diabetic chronic kidney disease; E66.9 Obesity, unspecified; Z68.32 Body mass index [BMI] 32.0-32.9, adult; Z71.3 Dietary counseling and surveillance; Z79.4 Long term (current) use of insulin; Z79.01 Long term (current) use of anticoagulants; Z79.82 Long term (current) use of aspirin; Z79.899 Other long term (current) drug therapy
CPT/HCPCS: 36415; 70450; 70496; 70498; 70546; 70549; 70551; 71045; 80048; 80061; 80307; 81001; 82947; 83036; 84484; 85025; 85610; 85730; 92610; 93005; 97116; 97162; 97165; 97530; 97535; 99285; A9585; J7120; Q9967

== ENCOUNTER → 2024-03-11 15:46 | Outpatient (BNV) | payer MEDICARE, SELFPAY | PROVIDERS: Admitting Provider Student in an Organized Health Care Education/Training Program; Emergency Provider Student in an Organized Health Care Education/Training Program; PCP Internal Medicine; Visit Provider Internal Medicine Cardiovascular Disease | DX: I63.9 Cerebral infarction, unspecified (principal); R00.1 Bradycardia, unspecified; R94.31 Abnormal electrocardiogram [ECG] [EKG] | CPT/HCPCS: 93010 ==

== ENCOUNTER → 2024-03-11 15:46 | Outpatient (BNV) | payer SELFPAY | PROVIDERS: Emergency Provider Student in an Organized Health Care Education/Training Program; Visit Provider Radiology Diagnostic Radiology | DX: G81.91 Hemiplegia, unspecified affecting right dominant side (principal) | CPT/HCPCS: 70450; 70496; 71045 ==

== ENCOUNTER 2024-03-11 20:06 | Outpatient (BNV) | payer MEDICARE, SELFPAY | END 2024-03-12 08:00 | PROVIDERS: Admitting Provider Student in an Organized Health Care Education/Training Program; Emergency Provider Student in an Organized Health Care Education/Training Program; PCP Internal Medicine; Visit Provider Radiology Diagnostic Radiology | DX: I63.81 Other cerebral infarction due to occlusion or stenosis of small artery (principal) | CPT/HCPCS: 70450; 70551 ==

== ENCOUNTER 2024-03-11 20:06 | Outpatient (BNV) | payer MEDICARE, SELFPAY | END 2024-03-13 12:40 | PROVIDERS: Admitting Provider Student in an Organized Health Care Education/Training Program; Emergency Provider Student in an Organized Health Care Education/Training Program; PCP Internal Medicine; Visit Provider Radiology Diagnostic Radiology | DX: I63.9 Cerebral infarction, unspecified (principal) | CPT/HCPCS: 70546 ==

== ENCOUNTER → 2024-03-11 20:06 | Outpatient (BNV) | payer MEDICARE, SELFPAY | PROVIDERS: Admitting Provider Student in an Organized Health Care Education/Training Program; Emergency Provider Student in an Organized Health Care Education/Training Program; PCP Internal Medicine; Visit Provider Psychiatry & Neurology Neurology | DX: I63.512 Cerebral infarction due to unspecified occlusion or stenosis of left middle cerebral artery (principal) | CPT/HCPCS: 99222 ==

== ENCOUNTER → 2024-03-11 20:06 | Outpatient (BNV) | payer MEDICARE, SELFPAY | PROVIDERS: Admitting Provider Student in an Organized Health Care Education/Training Program; Emergency Provider Student in an Organized Health Care Education/Training Program; PCP Internal Medicine; Visit Provider Physician Assistant | DX: G45.9 Transient cerebral ischemic attack, unspecified (principal); N17.9 Acute kidney failure, unspecified; N18.9 Chronic kidney disease, unspecified; N18.30 Chronic kidney disease, stage 3 unspecified; E66.811 Obesity, class 1 | CPT/HCPCS: 99223 ==

== ENCOUNTER 2024-03-20 13:49 | Outpatient (AMB) | payer OTHER, MEDICARE, SELFPAY ==
--- OUTSIDE RECORDS SUMMARY | 2024-03-20 13:55 | XMS_ITS | Continuity of Care Document ---
Author Name [facility] Organization [facility] Care Team Providers Care Track Repairer Helper Name Role Phone [facility] Unavailable Unavailable Problems Combined list of problems from Department of Defense and Veterans Affairs facilities. It does not include entries that were removed or entered in error. Problem Status Onset Date Problem Type Date of Resolution Comments Source Chronic dermatitis Active 03/13/19 24 Condition Oct 18, 2023 Entered By: SOFI MANCERA Comment: poison cherry [facility] Atrial fibrillation Active 03/13/19 23 Condition Oct 12, 2022 Entered By: SOFI MANCERA Comment: treated by cardiology [facility] Back pain Active 03/13/19 21 Condition Nov 10, 2020 Entered By: SOFI MANCERA Comment: lumbar [facility] Benign Prostatic Hypertrophy Without Outflow Obstruction (SCT [id number]) Active 03/13/19 19 Condition Nov 23, 2018 Entered By: SOFI MANCERA Comment: treated with tamsulosin [facility] Nephrolithiasis * (ICD-9-CM 592.0) Active 03/13/18 89 Condition May 24, 2005 Entered By: RE MCALLISTER Comment: High uric acid in stone at the time placed on allopurinol [facility] Microscopic Hematuria Active 03/13/18 68 Condition May 24, 2005 Entered By: RE MCALLISTER Comment: Since 1967 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, Wet (Armd) Active Condition [facility] Arthritis Active Condition [place] Blurred vision (ICD-9-CM 368.8) Active Condition [facility] Chronic kidney disease stage 3 due to type 2 diabetes mellitus Active Condition [facility] Colonoscopy, 2006, tics, polyps -- benign Active Condition [facility] Diabetes mellitus type 2 Active Condition [facility] Essential hypertension Active Condition [place] Essential hypertension Active Condition [facility] Gastroesophageal Reflux Disorder [facility] Hyperlipidemia (SNOMED CT 36046725) Active Condition [place] Hyperuricemia Active Condition [facility] Obesity (SNOMED CT 175448514) Active Condition [place] Pain in joint involving shoulder region (ICD-9-CM 719.41) Active Condition July 25, 2006 Entered By: RE MCALLISTER Comment: Small tear in L rotator cuff Med Rx [facility] Diagnosis: ICD-10-CM Z51.81 Encounter for therapeutic drug level monitoring Active Diagnosis [facility] ([id number]) Diagnosis: ICD-10-CM Z71.89 Other specified counseling Active Diagnosis [facility] Diagnosis: ICD-10-CM M54.9 Dorsalgia, unspecified Active Diagnosis [facility] Diagnosis: ICD-10-CM E11.9 Type 2 diabetes mellitus without complications Active Diagnosis [facility] Diagnosis: ICD-10-CM Y93.42 Activity, yoga Active Diagnosis [facility] Diagnosis: ICD-10-CM M54.59 Other low back pain Active Diagnosis [facility] Diagnosis: ICD-10-CM M54.50 Low back pain, unspecified Active Diagnosis [facility] Diagnosis: ICD-10-CM L30.9 Dermatitis, unspecified Active Diagnosis [facility] Diagnosis: ICD-10-CM L60.0 Ingrowing nail Active Diagnosis [facility] Diagnosis: ICD-10-CM E11.22 Type 2 diabetes mellitus w diabetic chronic kidney disease Active Diagnosis [facility] Diagnosis: ICD-10-CM Z46.1 Encounter for fitting and adjustment of hearing aid Active Diagnosis [facility] Diagnosis: ICD-10-CM Z46.0 Encounter for fit/adjst of spectacles and contact lenses Active Diagnosis [facility] Diagnosis: ICD-10-CM 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, right eye, with inact chrdl neovas Active Diagnosis [facility] Diagnosis: ICD-10-CM N18.30 Chronic kidney disease, stage 3 unspecified Active Diagnosis [facility] Diagnosis: ICD-10-CM E11.8 Type 2 diabetes mellitus with unspecified complications Active Diagnosis [facility] Diagnosis: ICD-10-CM Z79.01 terminal carman (current) use of anticoagulants Active Diagnosis [facility] Medications Combined list of outpatient medications from Department of Defense and Veterans Affairs facilities.Medications provided include 1) outpatient medications from the last 15 months, and 2) patient-reported medications. Medication Details Route Status Patient Instructions Prescription Expires Prescription Number Last Dispense Date Ordering Provider Order Date Order Qty Source ALLOPURINOL 300MG TAB TAKE ONE TABLET BY MOUTH ONCE DAILY FOR GOUT ORAL ACTIVE 09/18/2024 [id number] STEPHANIE MANCERA D 2023 90 [facility] ALLOPURINOL 300MG TAB TAKE ONE TABLET BY MOUTH ONCE DAILY FOR GOUT ORAL DISCONT INUED 09/16/2023 [id number] STEPHANIE MANCERA 2022 90 [facility] APIXABAN 2.5MG TAB TAKE ONE TABLET BY MOUTH EVERY 12 HOURS ORAL ACTIVE 04/14/2024 [id number] FABI COLLADO SENTHIL N 2024 60 [facility] 500MG TAB TAKE ONE TABLET BY MOUTH ONCE DAILY FOR VITAMIN/ NUTRITIO N SUPPLEME NT ORAL ACTIVE 05/09/2024 [id number] 4 [facility]ENS 2023 [facility] CHOLECALCIF MARGARITA 25MCG (1,000UNIT) TAB TAKE ONE TABLET BY MOUTH ONCE DAILY FOR VITAMIN SUPPLEME NTATION ORAL ACTIVE 06/21/2024 [id number] 4 ERIKA STEVENS 2023 90 [facility] CHOLECALCIF MARGARITA 25MCG (1,000UNIT) TAB TAKE ONE TABLET BY MOUTH ONCE DAILY FOR VITAMIN SUPPLEME NTATION ORAL DISCONT INUED 04/21/2023 [id number] ERIKA STEVENS Blayne 2022 90 [facility] FERROUS GLUCONATE 324MG TAB TAKE ONE TABLET BY MOUTH ONCE DAILY TO SUPPLEME NT IRON ORAL ACTIVE 04/05/2024 [id number] 4 STEVENSNEENA PARKDEJON Cisneros 2023 100 [facility] FLUTICASONE PROPIONATE 50MCG/SPRAY SOLN,NASAL, 16GM INSTILL 2 SPRAYS INTO EACH NOSTRIL ONCE DAILY NEEDED FOR NASAL IRRITATI ON/INFLA MMATION NASAL ACTIVE 10/29/2024 [id number] 4 STEPHANIE MANCERA MYLENE D 2023 3 [facility] FLUTICASONE PROPIONATE 50MCG/SPRAY SOLN,NASAL, 16GM INSTILL 2 SPRAYS INTO EACH NOSTRIL ONCE DAILY NEEDED FOR NASAL IRRITATI ON/INFLA MMATION NASAL 09/27/2023 [id number] 4 STEPHANIE MANCERA MYLENE D 2022 1 [facility] INSULIN,GLA RGINE-YFGN 100UNIT/ML INJ INJECT 20 UNITS SUBCUTAN EOUSLY AT BEDTIME FOR BLOOD SUGAR SUBCUT ANEOUS DISCONT INUED BY PROVIDE R 03/17/2024 [id number] 4 STEPHANIE MANCERA MYLENE D 2023 3 [facility] INSULIN,GLA RGINE-YFGN 100UNIT/ML INJ PEN,3ML INJECT 7 UNITS SUBCUTAN EOUSLY ONCE DAILY SUBCUT ANEOUS ACTIVE 12/18/2024 [id number] 4 MAXIMILIANO FRENCH 2023 5 [facility] INSULIN,GLA RGINE-YFGN 100UNIT/ML INJ PEN,3ML INJECT 16 UNITS SUBCUTAN EOUSLY ONCE DAILY FOR TYPE 2 DIABETES MELLITUS SUBCUT ANEOUS DISCONT INUED BY PROVIDE R 09/15/2024 [id number] 4 MAXIMILIANO FRENCH 2023 5 [facility] METOPROLOL SUCCINATE 25MG TAB,SA TAKE ONE TABLET BY MOUTH EVERY DAY ORAL ACTIVE STEPHANIE MANCERA D 2014 [facility] MULTIVIT/OP HTH AREDS2/LUTE IN/ZEAXANTH IN CAP/TAB TAKE 1 CAPSULE BY MOUTH TWICE DAILY IN THE MORNING AND EVENING, WITH FOOD ORAL ACTIVE 04/17/2024 [id number] 4 Blayne MASON NDREW E 2023 120 [facility] MULTIVIT/OP HTH AREDS2/LUTE IN/ZEAXANTH IN CAP/TAB TAKE 1 CAPSULE BY MOUTH TWICE DAILY IN THE MORNING AND EVENING, WITH FOOD ORAL DISCONT INUED 04/09/2023 [id number] 3 Blayne MASON NDREW E 2022 120 [facility] OMEPRAZOLE 20MG CAP,EC TAKE ONE CAPSULE BY MOUTH EVERY DAY FOR STOMACH ACID ORAL ACTIVE 02/06/2025 [id number] 4 STEPHANIE MANCERA D 2023 90 [facility] OMEPRAZOLE 20MG CAP,EC TAKE ONE CAPSULE BY MOUTH EVERY DAY FOR STOMACH ACID ORAL DISCONT INUED 02/21/2024 [id number] 4 STEPHANIE MANCERA D 2022 90 [facility] POTASSIUM CITRATE 5MEQ TAB,SA TAKE TWO TABLETS BY MOUTH EVERY MORNING AND TAKE ONE TABLET EVERY EVENING FOR RENAL TUBULAR ACIDOSIS ORAL ACTIVE 03/01/2025 [id number] 4 STEPHANIE MANCERA D 2023 300 [facility] POTASSIUM CITRATE 5MEQ TAB,SA TAKE TWO TABLETS BY MOUTH EVERY MORNING AND TAKE ONE TABLET EVERY EVENING FOR RENAL TUBULAR ACIDOSIS ORAL DISCONT INUED 12/16/2023 [id number] 4 STEPHANIE MANCERA D 2022 300 [facility] PREDNISONE 10MG TAB TAKE FOUR TABLETS BY MOUTH ONCE DAILY FOR 4 DAYS, THEN TAKE THREE TABLETS ONCE DAILY FOR 4 DAYS, THEN TAKE TWO TABLETS ONCE DAILY FOR 4 DAYS, THEN TAKE ONE TABLET ONCE DAILY FOR 4 DAYS POISON CHERRY ORAL 11/17/2023 [id number] 4 STEPHANIE MANCERA MYLENE D 2023 40 [facility] RIVAROXABAN 15MG TAB TAKE ONE TABLET BY MOUTH ONCE DAILY WITH DINNER ORAL DISCONT INUED 10/04/2024 [id number] 5 Kasi MUHAMMAD A 2023 90 [facility] RIVAROXABAN 15MG TAB TAKE ONE TABLET BY MOUTH ONCE DAILY WITH DINNER ORAL DISCONT INUED 10/13/2023 [id number] 4 Kasi MUHAMMAD A 2022 90 [facility] ROSUVASTATI N CA 20MG TAB TAKE ONE AND ONE-HALF TABLETS BY MOUTH AT BEDTIME FOR CHOLESTE ROL ORAL ACTIVE 03/09/2025 [id number] 4 STEPHANIE MANCERA MYLENE D 2023 135 [facility] ROSUVASTATI N CA 20MG TAB TAKE ONE AND ONE-HALF TABLETS BY MOUTH AT BEDTIME FOR CHOLESTE ROL ORAL DISCONT INUED 05/05/2024 [id number] 4 STEPHANIE MANCERA D 2023 135 [facility] ROSUVASTATI N CA 20MG TAB TAKE ONE AND ONE-HALF TABLETS BY MOUTH ONCE DAILY FOR CHOLESTE ROL ORAL 04/30/2023 [id number] 3 MARSH,AL ICE 2022 135 [facility] SEMAGLUTIDE 0.25MG/0.37 5ML INJ,SOLN,PE N,3ML INJECT 0.25MG SUBCUTAN EOUSLY ONCE A WEEK FOR 4 WEEKS, THEN INJECT 0.5MG ONCE A WEEK FOR 2 WEEKS FOR TYPE 2 DIABETES MELLITUS SUBCUT ANEOUS ACTIVE 04/11/2024 [id number] MAXIMILIANO FRENCH 2023 1 [facility] SEMAGLUTIDE 0.25MG/0.37 5ML INJ,SOLN,PE N,3ML INJECT 0.5MG SUBCUTAN EOUSLY ONCE A WEEK FOR TYPE 2 DIABETES MELLITUS SUBCUT ANEOUS DISCONT INUED BY PROVIDE R 10/25/2024 [id number] 4 MAXIMILIANO FRENCH 2023 1 [facility] SEMAGLUTIDE 0.25MG/0.37 5ML INJ,SOLN,PE N,3ML INJECT 0.25MG SUBCUTAN EOUSLY ONCE A WEEK FOR 4 WEEKS, THEN INJECT 0.5MG ONCE A WEEK FOR 2 WEEKS FOR TYPE 2 DIABETES MELLITUS SUBCUT ANEOUS 10/24/2023 [id number] 4 MAXIMILIANO FRENCH 2023 1 [facility] SEMAGLUTIDE 1MG/0.75ML INJ,SOLN,PE N,3ML INJECT 1MG SUBCUTAN EOUSLY ONCE A WEEK FOR TYPE 2 DIABETES MELLITUS SUBCUT ANEOUS DISCONT INUED BY PROVIDE R 12/18/2024 [id number] MAXIMILIANO FRENCH 2023 1 [facility] TAMSULOSIN HCL 0.4MG CAP TAKE TWO CAPSULES BY MOUTH AT BEDTIME ORAL ACTIVE 08/09/2024 [id number] 4 STEPAHNIE MANCERA 2023 180 [facility] TAMSULOSIN HCL 0.4MG CAP TAKE TWO CAPSULES BY MOUTH AT BEDTIME ORAL DISCONT INUED 08/04/2023 [id number] 4 STEPHANIE MANCERA 2022 180 [facility] Allergies, Adverse Reactions, Alerts Combined list of allergies from Department of Defense and Veterans Affairs facilities. It does not include entries that were removed or entered in error. Substance Category Reaction Severity Reaction type Status Date Reported Comments Source ATORVASTATIN Propensity to adverse reactions to drug (finding) Weakness present MILD active 3 [facility] LISINOPRIL Propensity to adverse reactions to drug (finding) Dizziness active 5 [facility] METFORMIN Propensity to adverse reactions to drug (finding) Diarrhea active 1 [facility] SEMAGLUTIDE Propensity to adverse reactions to drug (finding) Diarrhea, Nausea, Indigestion active 4 [facility] Immunizations Combined list of available immunizations from the Department of Defense and Veterans Affairs facilities. Immunization Series Date Given Administered By Site Reaction Lot Number CVX Code Drug Experimental Mechanic Electrical Status Comments Source COVID-19 (MODERNA), MRNA, LNP-S, PF, 50 MCG/0.5 ML (AGES 12+ YEARS) 7 2023 NIKKO SHELL RIGHT DELTO ID [id number] 312 [facility] INFLUENZA, HIGH-DOSE, TRIVALENT, PF 2023 NIKKO SHELL LEFT DELTO ID [id number] 135 complet [facility] COVID-19 (MODERNA), MRNA, LNP-S, PF, 50 MCG/0.5 ML (AGES 12+ YEARS) 6 2023 NIKKO SHELL RIGHT DELTO ID [id number] 312 complet ed [facility] RSV, BIVALENT, PROTEIN SUBUNIT RSVPREF, DILUENT RECONSTITUTED , 0.5 ML, PF 1 2022 KAYLEEN BUTLER E LEFT DELTO ID [id number] 305 complet ed [facility] INFLUENZA, HIGH-DOSE, QUADRIVALENT 2022 KAYLEEN BUTLER E LEFT DELTO ID [id number] 197 complet ed [facility] TD (ADULT), 2 LF TETANUS TOXOID, PRESERVATIVE FREE, ADSORBED 2022 VARSHA MCNAMARA M RIGHT DELTO ID [id number] 09 complet ed [facility] COVID-19 (MODERNA), MRNA, LNP-S, BIVALENT BOOSTER, PF, 50 MCG/0.5 ML OR 25MCG/0.25 ML DOSE 2021 229 complet ed [facility] INFLUENZA VACCINE, QUADRIVALENT, ADJUVANTED 2021 205 complet ed [facility] COVID-19 (MODERNA), MRNA, LNP-S, PF, 100 MCG/0.5ML DOSE OR 50 MCG/0.25ML DOSE 4 2021 207 complet ed MOD; [id number]; 2 [facility] COVID-19 (MODERNA), MRNA, LNP-S, PF, 100 MCG OR 50 MCG DOSE 3 2020 207 complet ed [facility] INFLUENZA VACCINE, QUADRIVALENT, ADJUVANTED 2020 205 complet ed [facility] COVID-19 (MODERNA), MRNA, LNP-S, PF, 100 MCG/0.5 ML DOSE 2 2020 207 complet ed MOD; [id number]; 1 [facility] COVID-19 (MODERNA), MRNA, LNP-S, PF, 100 MCG/0.5 ML DOSE 1 2020 207 complet ed MOD; [id number]; 1 [facility] INFLUENZA, HIGH-DOSE, QUADRIVALENT 2019 197 complet ed [facility] INFLUENZA, SEASONAL, INJECTABLE 2018 141 complet ed [facility] INFLUENZA, SEASONAL, INJECTABLE 2017 141 complet ed Site: Right Deltoid [facility] ZOSTER RECOMBINANT 2 2017 187 complet ed [facility] ZOSTER RECOMBINANT 1 2017 187 complet ed [facility] INFLUENZA, SEASONAL, INJECTABLE 2016 141 complet ed Site: Left Deltoid [facility] FLU,3 YRS (HISTORICAL) 2015 88 complet ed private M.D. [facility] PNEUMOCOCCAL CONJUGATE PCV 13 2015 133 complet ed [facility] FLU,3 YRS (HISTORICAL) 2014 88 complet ed outside pcp [facility] FLU,3 YRS (HISTORICAL) 2013 88 complet ed Site: Left Deltoid, Site: Right Deltoid [facility] PNEUMOCOCCAL POLYSACCHARID E [id number] 2013 33 complet ed [facility] DTAP, UNSPECIFIED FORMULATION 2012 107 complet ed [facility] FLU,3 YRS (HISTORICAL) 2012 88 complet ed [facility] FLU,3 YRS (HISTORICAL) 2011 88 complet ed Site: Left Deltoid [facility] ZOSTER LIVE 2010 FAREED TREVINO 121 complet ed [facility] FLU,3 YRS (HISTORICAL) 2010 88 complet ed Site: Right Deltoid [facility] FLU,3 YRS (HISTORICAL) 2009 88 complet ed Site: Left Deltoid [facility] FLU,3 YRS (HISTORICAL) 2008 88 complet ed Site: Left Deltoid [place] FLU,3 YRS (HISTORICAL) 2007 88 complet ed [facility] FLU,3 YRS (HISTORICAL) 2006 88 complet ed [facility] TD(ADULT) UNSPECIFIED FORMULATION 2005 139 complet ed [facility] PNEUMOCOCCAL POLYSACCHARID E [id number] 2004 33 complet ed [place] PNEUMOCOCCAL, UNSPECIFIED FORMULATION 2004 AUTUMN HARRY 109 complet ed [place] FLU,3 YRS (HISTORICAL) 2004 AGUILAR,BENIGNO Y 88 complet ed [facility] FLU,3 YRS (HISTORICAL) 2003 JULIO MACEDO G 88 complet ed [facility] Results Combined list of recent chemistry, hematology and other laboratory results from Department of Defense and Veterans Affairs, ranging from 15 months to all on record, depending upon the facility. Order Name Results Value Reference Range Date Interpretation Specimen Comments Source VITAMIN D 25-OH (Therapy monitor) 25-HYDROXYV ITAMIN D3 [MASS/VOLUM E] IN SERUM OR PLASMA 44 ng/mL 30 - 100 12/26 Specimen Type: SERUM Comment: Vitamin D, 25-Hydroxy reports concentrati ons of two common forms, 25-OHD2 and 25-OHD3. 25-OHD3 indicates both endogenous production and supplementa tion. 25-OHD2 is an indicator of exogenous sources such as diet or supplementa tion. Therapy is based on measurement of Total 25-OHD, with levels <20 ng/mL indicative of Vitamin D deficiency, while levels between 20 ng/mL and 30 ng/mL suggest insufficien cy. Optimal levels are > or = 30 ng/mL. For additional information , please refer to http://educ ation.[employer] .com/faq/FA Q199 (This link is being provided for information al/ educational purposes only.) This test was developed and its analytical performance characteris tics have been determined by [employer] [place], [place]. It has not been cleared or approved by the U.S. Food and Drug Administrat ion. This assay has been validated pursuant to the CLIA regulations and is used for clinical purposes. This test was developed and its analytical performance characteris tics have been determined by [employer] [place]. It has not been cleared or approved by the U.S. Food and Drug Administrat ion. This assay has been validated pursuant to the CLIA regulations and is used for clinical purposes. Test Performed by [facility], [facility] [place], [address] [place], [place] Juan Martinez M.D., Ph.D., Director of Laboratorie s , CLIA [id number] TEST PERFORMED AT: , Ordering Provider: SIDNEY MANCERA Report Released Date/Time: Dec 24, 2023 08:02 PM Reporting Lab: [facility] [address] [address] Performing Lab: [facility] [address] [address] [facility] VITAMIN D 25-OH (Therapy monitor) 25-HYDROXYV ITAMIN D3 [MASS/VOLUM E] IN SERUM OR PLASMA 44 ng/mL 12/26 Specimen Type: SERUM Comment: Vitamin D, 25-Hydroxy reports concentrati ons of two common forms, 25-OHD2 and 25-OHD3. 25-OHD3 indicates both endogenous production and supplementa tion. 25-OHD2 is an indicator of exogenous sources such as diet or supplementa tion. Therapy is based on measurement of Total 25-OHD, with levels <20 ng/mL indicative of Vitamin D deficiency, while levels between 20 ng/mL and 30 ng/mL suggest insufficien cy. Optimal levels are > or = 30 ng/mL. For additional information , please refer to http://educ ation.Game[employer] .[employer]/faq/FA Q199 (This link is being provided for information al/ educational purposes only.) This test was developed and its analytical performance characteris tics have been determined by [employer] [place], [place]. It has not been cleared or approved by the U.S. Food and Drug Administrat [employer]. This assay has been validated pursuant to the CLIA regulations and is used for clinical purposes. This test was developed and its analytical performance characteris tics have been determined by [employer] [place], [place]. It has not been cleared or approved by the U.S. Food and Drug Administrat [employer]. This assay has been validated pursuant to the CLIA regulations and is used for clinical purposes. Test Performed by [facility], [employer] [place], [address] [place], [place] Juan Martinez M.D., Ph.D., Director of Laboratorie s , CLIA [id number] TEST PERFORMED AT: , Ordering Provider: SIDNEY MANCERA Report Released Date/Time: Dec 24, 2023 08:02 PM Reporting Lab: [facility] [address] [address] Performing Lab: [facility] [address] [address] [facility] VITAMIN D 25-OH (Therapy monitor) CALCIFEROL (VIT D2) [MASS/VOLUM E] IN SERUM OR PLASMA <4ng/m L 12/26 Specimen Type: SERUM Comment: Vitamin D, 25-Hydroxy reports concentrati ons of two common forms, 25-OHD2 and 25-OHD3. 25-OHD3 indicates both endogenous production and supplementa tion. 25-OHD2 is an indicator of exogenous sources such as diet or supplementa tion. Therapy is based on measurement of Total 25-OHD, with levels <20 ng/mL indicative of Vitamin D deficiency, while levels between 20 ng/mL and 30 ng/mL suggest insufficien cy. Optimal levels are > or = 30 ng/mL. For additional information , please refer to http://educ [email or web address] .[employer]/faq/FA Q199 (This link is being provided for information al/ educational purposes only.) This test was developed and its analytical performance characteris tics have been determined by [employer] [place]. It has not been cleared or approved by the U.S. Food and Drug Administrat ion. This assay has been validated pursuant to the CLIA regulations and is used for clinical purposes. This test was developed and its analytical performance characteris tics have been determined by [employer] [place]. It has not been cleared or approved by the U.S. Food and Drug Administrat ion. This assay has been validated pursuant to the CLIA regulations and is used for clinical purposes. Test Performed by [facility], [employer] [place], [address] [place], [place] Juan Martinez M.D., Ph.D., Director of Laboratorie s , CLIA [id number] TEST PERFORMED AT: , Ordering Provider: SIDNEY MANCERA Report Released Date/Time: Dec 24, 2023 08:02 PM Reporting Lab: [facility] [place] [facility] [address] [address] Performing Lab: [facility] [place] [facility] [address] [address] [facility] [place] [facility] TSH THYROTROPIN [UNITS/VOLU ME] IN SERUM OR PLASMA 0.79 u[IU]/ mL 0.35 - 5.00 12/26 Specimen Type: SERUM No comment entered. Ordering Provider: SIDNEY MANCERA Report Released Date/Time: Dec 24, 2023 08:02 PM Reporting Lab: [facility] [place] [facility] [address] [address] Performing Lab: [facility] [place] [facility] [address] [address] [facility] [place] [facility] LIPID PANEL FASTING CHOLESTEROL [MASS/VOLUM E] IN SERUM OR PLASMA 129 mg/dL 12/26 Specimen Type: SERUM No comment entered. Ordering Provider: SIDNEY MANCERA Report Released Date/Time: Dec 24, 2023 08:02 PM Reporting Lab: [facility] [place] [facility] [address] [address] Performing Lab: [facility] [place] [facility] [address] [address] [facility] [place] [facility] LIPID PANEL FASTING TRIGLYCERID E [MASS/VOLUM E] IN SERUM OR PLASMA 168 mg/dL 0 - 150 12/26 H Specimen Type: SERUM No comment entered. Ordering Provider: SIDNEY MANCERA Report Released Date/Time: Dec 24, 2023 08:02 PM Reporting Lab: [facility] [place] [facility] [address] [address] Performing Lab: [facility] [place] [facility] [address] [address] [facility] [place] [facility] LIPID PANEL FASTING CHOLESTEROL IN LDL [MASS/VOLUM E] IN SERUM OR PLASMA BY CALCULATION 54 mg/dL 0 - 129 12/26 Specimen Type: SERUM No comment entered. Ordering Provider: SIDNEY MANCERA Report Released Date/Time: Dec 24, 2023 08:02 PM Reporting Lab: [facility] [place] [facility] [address] [address] Performing Lab: [facility] [place] [facility] [address] [facility] [address] [facility] [place] [facility] LIPID PANEL FASTING CHOLESTEROL .TOTAL/CHOL ESTEROL IN HDL [MASS RATIO] IN SERUM OR PLASMA 3.1 12/26 Specimen Type: SERUM No comment entered. Ordering Provider: SIDNEY MANCERA Report Released Date/Time: Dec 24, 2023 08:02 PM Reporting Lab: [facility] [place] [facility] [address] [address] Performing Lab: [facility] [place] [facility] [address] [address] [facility] LIPID PANEL FASTING CHOLESTEROL IN HDL [MASS/VOLUM E] IN SERUM OR PLASMA 41 mg/dL 40 - 60 12/26 Specimen Type: SERUM No comment entered. Ordering Provider: SIDNEY MANCERA Report Released Date/Time: Dec 24, 2023 08:02 PM Reporting Lab: [facility] [place] [facility] [address] [address] Performing Lab: [facility] [place] [facility] [address] [address] [facility] [place] [facility] LIVER FUNCTION PROTEIN [MASS/VOLUM E] IN SERUM OR PLASMA 6.5 g/dL 6.0 - 8.3 12/26 Specimen Type: SERUM No comment entered. Ordering Provider: SIDNEY MANCERA Report Released Date/Time: Dec 24, 2023 08:02 PM Reporting Lab: [facility] [place] [place] [facility] [address] [address] Performing Lab: [facility] [place] [facility] [address] [address] [facility] [place] [facility] LIVER FUNCTION ALBUMIN [MASS/VOLUM E] IN SERUM OR PLASMA 3.4 g/dL 3.5 - 5.0 10/16 /2024 L Specimen Type: SERUM No comment entered. Ordering Provider: SIDNEY MANCERA Report Released Date/Time: Dec 24, 2023 08:02 PM Reporting Lab: [facility] [place] [facility] [address] [address] Performing Lab: [facility] [place] [facility] [address] [address] [facility] [place] [facility] LIVER FUNCTION ALKALINE PHOSPHATASE [ENZYMATIC ACTIVITY/VO LUME] IN SERUM OR PLASMA 74 U/L 40 - 150 12/26 Specimen Type: SERUM No comment entered. Ordering Provider: SIDNEY MANCERA Report Released Date/Time: Dec 24, 2023 08:02 PM Reporting Lab: [facility] [place] [place] [facility] [address] [address] Performing Lab: [facility] [place] [facility] [address] [address] [facility] [place] [facility] LIVER FUNCTION ASPARTATE AMINOTRANSF ERASE [ENZYMATIC ACTIVITY/VO LUME] IN SERUM OR PLASMA 18 U/L 5 - 34 12/26 Specimen Type: SERUM No comment entered. Ordering Provider: SIDNEY MANCERA Report Released Date/Time: Dec 24, 2023 08:02 PM Reporting Lab: [facility] [place] [facility] [address] [address] Performing Lab: [facility] [place] [facility] [address] [address] [facility] [place] [facility] LIVER FUNCTION ALANINE AMINOTRANSF ERASE [ENZYMATIC ACTIVITY/VO LUME] IN SERUM OR PLASMA 16 U/L 12/26 Specimen Type: SERUM No comment entered. Ordering Provider: SIDNEY MANCERA Report Released Date/Time: Dec 24, 2023 08:02 PM Reporting Lab: [facility] [place] [facility] [address] [address] Performing Lab: [facility] [place] [facility] [address] [address] [facility] [place] [place] [facility] LIVER FUNCTION BILIRUBIN.T OTAL [MASS/VOLUM E] IN SERUM OR PLASMA 0.5 mg/dL 0.2 - 1.2 12/26 Specimen Type: SERUM No comment entered. Ordering Provider: SIDNEY MANCERA Report Released Date/Time: Dec 24, 2023 08:02 PM Reporting Lab: [facility] [place] [facility] [address] [address] Performing Lab: [facility] [place] [facility] [address] [address] [facility] [place] [facility] BASIC METABOLIC PANEL (fasting) UREA NITROGEN [MASS/VOLUM E] IN SERUM OR PLASMA 20 mg/dL 7 - 25 12/26 Specimen Type: SERUM No comment entered. Ordering Provider: SIDNEY MANCERA Report Released Date/Time: Dec 24, 2023 08:02 PM Reporting Lab: [facility] [place] [facility] [address] [address] Performing Lab: [facility] [place] [address] [address] [facility] [place] [facility] BASIC METABOLIC PANEL (fasting) GLUCOSE [MASS/VOLUM E] IN SERUM OR PLASMA 110 mg/dL 65 - 100 12/26 H Specimen Type: SERUM No comment entered. Ordering Provider: SIDNEY MANCERA Report Released Date/Time: Dec 24, 2023 08:02 PM Reporting Lab: [facility] [place] [address] [address] Performing Lab: [facility] [place] [address] [address] [facility] [place] [facility] BASIC METABOLIC PANEL (fasting) SODIUM [MOLES/VOLU ME] IN SERUM OR PLASMA 141 mmol/L 135 - 145 12/26 Specimen Type: SERUM No comment entered. Ordering Provider: SIDNEY MANCERA Report Released Date/Time: Dec 24, 2023 08:02 PM Reporting Lab: [facility] [place] [facility] [address] [address] Performing Lab: [facility] [place] [address] [address] [facility] [place] [facility] BASIC METABOLIC PANEL (fasting) POTASSIUM [MOLES/VOLU ME] IN SERUM OR PLASMA 4.4 mmol/L 3.5 - 5.0 12/26 Specimen Type: SERUM No comment entered. Ordering Provider: SIDNEY MANCERA Report Released Date/Time: Dec 24, 2023 08:02 PM Reporting Lab: [facility] [address] [address] Performing Lab: [facility]ITALRNOL[facility]TRN [address] [address] [facility] BASIC METABOLIC PANEL (fasting) CHLORIDE [MOLES/VOLU ME] IN SERUM OR PLASMA 111 mmol/L 100 - 110 12/26 H Specimen Type: SERUM No comment entered. Ordering Provider: SIDNEY MANCERA Report Released Date/Time: Dec 24, 2023 08:02 PM Reporting Lab: [facility] [address] [address] Performing Lab: [facility] [address] [address] [facility] BASIC METABOLIC PANEL (fasting) CARBON DIOXIDE, TOTAL [MOLES/VOLU ME] IN SERUM OR PLASMA 20 meq/L 20 - 30 12/26 Specimen Type: SERUM No comment entered. Ordering Provider: SIDNEY MANCERA Report Released Date/Time: Dec 24, 2023 08:02 PM Reporting Lab: [facility] [address] Performing Lab: [facility]ITALRNOL[facility] BIRMINGHAMTRN [facility]ITALUSE[address] [address] [facility] BASIC METABOLIC PANEL (fasting) CREATININE [MASS/VOLUM E] IN SERUM OR PLASMA 1.98 mg/dL 0.50 - 1.40 12/26 H Specimen Type: SERUM No comment entered. Ordering Provider: SIDENY MANCERA Report Released Date/Time: Dec 24, 2023 08:02 PM Reporting Lab: [facility] [address] [address] Performing Lab: [facility] [address] [address] [facility] BASIC METABOLIC PANEL (fasting) GLOMERULAR FILTRATION RATE/1.73 SQ M.PREDICTED [VOLUME RATE/AREA] IN SERUM, PLASMA OR BLOOD BY CREATININE- BASED FORMULA (CKD-EPI 2020) 32 mL/min 60 12/26 L Specimen Type: SERUM No comment entered. Ordering Provider: SIDNEY MANCERA Report Released Date/Time: Dec 24, 2023 08:02 PM Reporting Lab: [facility] [address] [address] Performing Lab: [facility] [address] [address] [facility] HEMOGLOBI N A1C PANEL HEMOGLOBIN A1C/HEMOGLO BIN.TOTAL IN BLOOD BY HPLC 5.9 4.0 - 5.6 12/26 H Specimen Type: BLOOD Comment: Values obtained from A1C measurement s can vary. For atypical A1C assays, a reported value of 7.0 could actually be between 6.72 and 7.28 if measured by a reference method. A reported value of 9.0 could actually be between 8.73 and 9.27. Ref: http://www. ngsp.org/[place] Pdata.asp Ordering Provider: SIDNEY MANCERA Report Released Date/Time: Dec 24, 2023 08:02 PM Reporting Lab: [facility] [address] [address] Performing Lab: [facility] [address] [address] [facility] URIC ACID URATE [MASS/VOLUM E] IN SERUM OR PLASMA 2.8 mg/dL 3.5 - 7.2 12/26 L Specimen Type: SERUM No comment entered. Ordering Provider: SIDNEY MANCERA Report Released Date/Time: Dec 24, 2023 08:02 PM Reporting Lab: [address] [address] Performing Lab: [facility] [address] [address] [facility] [place] [facility] MICROALBU MIN CREATININ E RATIO PANEL MICROALBUMI N/CREATININ E [MASS RATIO] IN URINE 101.5 mg/g 0 - 29.9 12/26 H Specimen Type: URINE No comment entered. Ordering Provider: SIDNEY MANCERA Report Released Date/Time: Dec 24, 2023 08:02 PM Reporting Lab: [facility]RL [facility] [place] [facility] [address] [address] Performing Lab: [facility]ITALRNOLAND HOSPITAL BIRMINGHAMTRN [facility]OS[facility]ITALUSETS [facility] [address] [address] [facility]ITALRNOL[facility] HOSP[facility] BIRMINGHAMTRN [place] [facility] MICROALBU MIN CREATININ E RATIO PANEL MICROALBUMI N [MASS/VOLUM E] IN URINE 14.7 mg/dL 12/26 Specimen Type: URINE No comment entered. Ordering Provider: SIDNEY MANCERA Report Released Date/Time: Dec 24, 2023 08:02 PM Reporting Lab: [facility]ITALRL TRN [place] [facility] [address] [address] Performing Lab: [facility]ITALRL WSTRN [facility]PITALUSETS [address] [address] [facility]ITALRL TRN [place] [facility] MICROALBU MIN CREATININ E RATIO PANEL CREATININE [MASS/VOLUM E] IN URINE 144.88 mg/dL 12/26 Specimen Type: URINE No comment entered. Ordering Provider: SIDNEY MANCERA Report Released Date/Time: Dec 24, 2023 08:02 PM Reporting Lab: [facility]ITALRL [place] [address] [address] Performing Lab: [facility]ITALRL [place] [address] [address] [facility]ITALRNORTH [facility]AB[facility]ENTERN [place] [facility] MICROSCOP IC AUTOMATED , URINE LEUKOCYTES [#/AREA] IN URINE SEDIMENT BY MICROSCOPY HIGH POWER FIELD 0-5/[H PF] 0 - 5 12/26 Specimen Type: URINE Comment: If Glucose = >500 and Ketones are positive, please alert the Physician. Ordering Provider: SIDNEY MANCERA Report Released Date/Time: Dec 24, 2023 08:02 PM Reporting Lab: [facility] [place] [place] [facility] [address] [address] Performing Lab: [facility] [place] [facility] [address] [address] [facility] [place] [facility] MICROSCOP IC AUTOMATED , URINE MUCUS [#/AREA] IN URINE SEDIMENT BY MICROSCOPY LOW POWER FIELD FEW/[L PF] 12/26 Specimen Type: URINE Comment: If Glucose = >500 and Ketones are positive, please alert the Physician. Ordering Provider: SIDNEY MANCERA Report Released Date/Time: Dec 24, 2023 08:02 PM Reporting Lab: [facility] [place] [facility] [address] [address] Performing Lab: [facility] [place] [facility] [address] [address] [facility]ITALRNOLAND HOSPITAL BIRMINGHAMTRN [facility]ITALUSE [facility] MICROSCOP IC AUTOMATED , URINE ERYTHROCYTE S [#/AREA] IN URINE SEDIMENT BY MICROSCOPY HIGH POWER FIELD 3-5/[H PF] 0 - 3 12/26 Specimen Type: URINE Comment: If Glucose = >500 and Ketones are positive, please alert the Physician. Ordering Provider: SIDNEY MANCERA Report Released Date/Time: Dec 24, 2023 08:02 PM Reporting Lab: [facility] [place] [facility] [address] [address] Performing Lab: [facility]OSPITALUSETS [facility] [address] [address] [facility]ITALRL TRN [place] [facility] CBC AND DIFF (AUTO) LEUKOCYTES [#/VOLUME] IN BLOOD BY AUTOMATED COUNT 9.67 10*3/u L 4.50 - 11.00 12/26 Specimen Type: BLOOD No comment entered. Ordering Provider: SIDNEY MANCERA Report Released Date/Time: Dec 24, 2023 08:02 PM Reporting Lab: [facility] [place] [facility] [address] [address] Performing Lab: [facility] [address] [address] [facility] [place] [facility] CBC AND DIFF (AUTO) ERYTHROCYTE S [#/VOLUME] IN BLOOD BY AUTOMATED COUNT 4.33 10*6/u L 4.23 - 5.66 12/26 Specimen Type: BLOOD No comment entered. Ordering Provider: SIDNEY MANCERA Report Released Date/Time: Dec 24, 2023 08:02 PM Reporting Lab: [facility] [place] [facility] [address] [address] Performing Lab: [facility] [place] [facility] [address] [address] [facility] [place] [facility] CBC AND DIFF (AUTO) HEMOGLOBIN [MASS/VOLUM E] IN BLOOD 13.8 g/dL 12.8 - 17 12/26 Specimen Type: BLOOD No comment entered. Ordering Provider: SIDNEY MANCERA Report Released Date/Time: Dec 24, 2023 08:02 PM Reporting Lab: [facility]RL [place] [place] [address] [address] Performing Lab: [facility] [place] [address] [address] [facility]ITALRL [facility]N [place] [facility] CBC AND DIFF (AUTO) HEMATOCRIT [VOLUME FRACTION] OF BLOOD BY AUTOMATED COUNT 40.4 39.2 - 50.4 12/26 Specimen Type: BLOOD No comment entered. Ordering Provider: SIDNEY MANCERA Report Released Date/Time: Dec 24, 2023 08:02 PM Reporting Lab: [facility] [place] [address] [address] Performing Lab: [facility] [place] [facility] [address] [address] [facility] [place] [facility] CBC AND DIFF (AUTO) MCV [ENTITIC VOLUME] BY AUTOMATED COUNT 93.3 fL 82 - 99 12/26 Specimen Type: BLOOD No comment entered. Ordering Provider: SIDNEY MANCERA Report Released Date/Time: Dec 24, 2023 08:02 PM Reporting Lab: [facility] [place] [address] [address] Performing Lab: [facility] [place] [facility] [address] [address] [facility] [place] [facility] CBC AND DIFF (AUTO) MCHC [MASS/VOLUM E] BY AUTOMATED COUNT 34.2 g/dL 30.8 - 35.1 12/26 Specimen Type: BLOOD No comment entered. Ordering Provider: SIDNEY MANCERA Report Released Date/Time: Dec 24, 2023 08:02 PM Reporting Lab: [facility] [place] [facility] [address] [address] Performing Lab: [facility] [place] [facility] [address] [address] [facility] [place] [facility] CBC AND DIFF (AUTO) PLATELETS [#/VOLUME] IN BLOOD BY AUTOMATED COUNT 218 10*3/u L 140 - 360 12/26 Specimen Type: BLOOD No comment entered. Ordering Provider: SIDNEY MANCERA Report Released Date/Time: Dec 24, 2023 08:02 PM Reporting Lab: [facility] [place] [facility] [address] [address] Performing Lab: [facility] [place] [facility] [address] [address] [facility] [place] [facility] CBC AND DIFF (AUTO) ERYTHROCYTE DISTRIBUTIO N WIDTH [RATIO] BY AUTOMATED COUNT 13.9 12.0 - 16.0 12/26 Specimen Type: BLOOD No comment entered. Ordering Provider: SIDNEY MANCERA Report Released Date/Time: Dec 24, 2023 08:02 PM Reporting Lab: [facility] [place] [facility] [address] [address] Performing Lab: [facility] [place] [facility] [address] [address] [facility] [facility] CBC AND DIFF (AUTO) MONOCYTES [#/VOLUME] IN BLOOD BY AUTOMATED COUNT 0.65 10*3/u L 0.30 - 1.10 12/26 Specimen Type: BLOOD No comment entered. Ordering Provider: SIDNEY MANCERA Report Released Date/Time: Dec 24, 2023 08:02 PM Reporting Lab: [facility] [place] [facility] [address] [address] Performing Lab: [facility] [place] [facility] [address] [address] [facility] [place] [facility] CBC AND DIFF (AUTO) MCH [ENTITIC MASS] BY AUTOMATED COUNT 31.9 pg 26.2 - 32.6 12/26 Specimen Type: BLOOD No comment entered. Ordering Provider: SIDNEY MANCERA Report Released Date/Time: Dec 24, 2023 08:02 PM Reporting Lab: [facility] [place] [facility] [address] [address] Performing Lab: [facility] [place] [facility] [address] [address] [facility] [place] [facility] CBC AND DIFF (AUTO) NEUTROPHILS /100 LEUKOCYTES IN BLOOD BY AUTOMATED COUNT 71.9 43.7 - 75.8 12/26 Specimen Type: BLOOD No comment entered. Ordering Provider: SIDNEY MANCERA Report Released Date/Time: Dec 24, 2023 08:02 PM Reporting Lab: [facility] [facility] [address] [address] Performing Lab: [facility] [facility] [address] [address] [facility] [place] [facility] CBC AND DIFF (AUTO) LYMPHOCYTES /100 LEUKOCYTES IN BLOOD BY AUTOMATED COUNT 14.1 14.0 - 42.3 12/26 Specimen Type: BLOOD No comment entered. Ordering Provider: SIDNEY MANCERA Report Released Date/Time: Dec 24, 2023 08:02 PM Reporting Lab: [facility] [place] [facility] [address] [address] Performing Lab: [facility] [facility] [address] [address] [facility] [facility] CBC AND DIFF (AUTO) MONOCYTES/1 00 LEUKOCYTES IN BLOOD BY AUTOMATED COUNT 6.7 5.1 - 13.7 12/26 Specimen Type: BLOOD No comment entered. Ordering Provider: SIDNEY MANCERA Report Released Date/Time: Dec 24, 2023 08:02 PM Reporting Lab: [facility] [place] [facility] [address] [address] Performing Lab: [facility] [place] [facility] [address] [address] [facility] [place] [facility] CBC AND DIFF (AUTO) EOSINOPHILS /100 LEUKOCYTES IN BLOOD BY AUTOMATED COUNT 6.8 0.4 - 6.8 12/26 Specimen Type: BLOOD No comment entered. Ordering Provider: SIDNEY MANCERA Report Released Date/Time: Dec 24, 2023 08:02 PM Reporting Lab: [facility] [place] [facility] [address] [address] Performing Lab: [facility] [place] [facility] [address] [address] [facility] [place] [facility] CBC AND DIFF (AUTO) BASOPHILS/1 00 LEUKOCYTES IN BLOOD BY AUTOMATED COUNT 0.3 0.1 - 2.0 12/26 Specimen Type: BLOOD No comment entered. Ordering Provider: SIDNEY MANCERA Report Released Date/Time: Dec 24, 2023 08:02 PM Reporting Lab: [facility] [place] [facility] [address] [facility] [address] Performing Lab: [facility] [place] [facility] [address] [address] [facility] [place] [facility] CBC AND DIFF (AUTO) NEUTROPHILS [#/VOLUME] IN BLOOD BY AUTOMATED COUNT 6.95 10*3/u L 2.20 - 7.60 12/26 Specimen Type: BLOOD No comment entered. Ordering Provider: SIDNEY MANCERA Report Released Date/Time: Dec 24, 2023 08:02 PM Reporting Lab: [facility] [place] [facility] [address] [facility] [address] Performing Lab: [facility] [place] [facility] [address] [address] [facility] [place] [facility] CBC AND DIFF (AUTO) LYMPHOCYTES [#/VOLUME] IN BLOOD BY AUTOMATED COUNT 1.36 10*3/u L 1.00 - 3.20 12/26 Specimen Type: BLOOD No comment entered. Ordering Provider: SIDNEY MANCERA Report Released Date/Time: Dec 24, 2023 08:02 PM Reporting Lab: [facility] [facility] [address] [address] Performing Lab: [facility] [place] [facility] [address] [address] [facility] [facility] CBC AND DIFF (AUTO) EOSINOPHILS [#/VOLUME] IN BLOOD BY AUTOMATED COUNT 0.66 10*3/u L 0.03 - 0.44 12/26 H Specimen Type: BLOOD No comment entered. Ordering Provider: SIDNEY MANCERA Report Released Date/Time: Dec 24, 2023 08:02 PM Reporting Lab: [facility] [place] [address] [address] Performing Lab: [facility] [place] [facility] [address] [address] [facility] [place] [facility] CBC AND DIFF (AUTO) BASOPHILS [#/VOLUME] IN BLOOD BY AUTOMATED COUNT 0.03 10*3/u L 0.01 - 0.13 12/26 Specimen Type: BLOOD No comment entered. Ordering Provider: SIDNEY MANCERA Report Released Date/Time: Dec 24, 2023 08:02 PM Reporting Lab: [facility] [place] [address] [address] Performing Lab: [facility] [address] [address] [facility] [place] [facility] CBC AND DIFF (AUTO) IMMATURE GRANULOCYTE S/100 LEUKOCYTES IN BLOOD BY AUTOMATED COUNT 0.2 0.0 - 0.7 12/26 Specimen Type: BLOOD No comment entered. Ordering Provider: SIDNEY MANCERA Report Released Date/Time: Dec 24, 2023 08:02 PM Reporting Lab: [facility] [place] [address] [address] Performing Lab: [facility] [place] [address] [address] [facility] [place] [place] [facility] CBC AND DIFF (AUTO) IMMATURE GRANULOCYTE S [#/VOLUME] IN BLOOD 0.02 10*3/u L 0.00 - 0.06 12/26 Specimen Type: BLOOD No comment entered. Ordering Provider: SIDNEY MANCERA Report Released Date/Time: Dec 24, 2023 08:02 PM Reporting Lab: [facility] [place] [facility] [address] [address] Performing Lab: [facility] [place] [facility] [address] [address] [facility] [place] [facility] CBC AND DIFF (AUTO) NRBC % 0.0 0.0 - 0.0 12/26 Specimen Type: BLOOD No comment entered. Ordering Provider: SIDNEY MANCERA Report Released Date/Time: Dec 24, 2023 08:02 PM Reporting Lab: [facility] [place] [facility] [address] [address] Performing Lab: [facility] [place] [facility] [address] [address] [facility] [place] [facility] CBC AND DIFF (AUTO) NRBC, ABS 0.00 10*3/u L 0.00 - 0.00 12/26 Specimen Type: BLOOD No comment entered. Ordering Provider: SIDNEY MANCERA Report Released Date/Time: Dec 24, 2023 08:02 PM Reporting Lab: [facility] [place] [address] [address] Performing Lab: [facility] [place] [address] [address] [facility] [place] [facility] Vital Signs Combined list of inpatient and outpatient Vital Signs from Department of Defense and Veterans Affairs, ranging from 12 months to all on record, depending upon the facility. Vital Sign Value Date Comments Source SYSTOLIC BLOOD PRESSURE 150 01/01/20 24 14:33:33 [facility] DIASTOLIC BLOOD PRESSURE 70 024 14:33:33 [facility] [place] [facility] PULSE OXIMETRY 96 01/01/2024 14:33:33 [facility] [place] [facility] WEIGHT 214.7 01/01/2024 14:33:33 [facility] [place] [facility] BMI 33kg/m2 01/01/2024 14:33:33 [facility] [place] [facility] PAIN 1 01/01/2024 14:33:33 [facility] [place] [facility] HEIGHT 68 01/01/2024 14:33:33 [facility] [place] [facility] TEMPERATURE 97.9 01/01/2024 14:33:33 [facility] [place] [facility] PULSE 75 01/01/2024 14:33:33 [facility] [place] [facility] RESPIRATION 16 01/01/2024 14:33:33 [facility] [place] [facility] SYSTOLIC BLOOD PRESSURE 122 10/18/19 24 10:14:31 [facility] DIASTOLIC BLOOD PRESSURE 75 024 10:14:31 [facility] PULSE OXIMETRY 97 10/18/2023 10:14:31 [facility] PAIN 5 10/18/2023 10:14:31 [facility] TEMPERATURE 98.1 10/18/2023 10:14:31 [facility] PULSE 67 10/18/2023 10:14:31 [facility] RESPIRATION 16 10/18/2023 10:14:31 [facility] SYSTOLIC BLOOD PRESSURE 123 10/11/19 24 09:07:58 [facility] DIASTOLIC BLOOD PRESSURE 73 024 09:07:58 [facility] PULSE OXIMETRY 97 10/11/2023 09:07:58 [facility] WEIGHT 221 10/11/2023 09:07:58 [facility] BMI 34kg/m2 10/11/2023 09:07:58 [facility] PAIN 7 10/11/2023 09:07:58 [facility] TEMPERATURE 97.3 10/11/2023 09:07:58 [facility] PULSE 66 10/11/2023 09:07:58 [facility] RESPIRATION 16 10/11/2023 09:07:58 [facility] SYSTOLIC BLOOD PRESSURE 132 09/01/19 24 11:18:36 [facility] DIASTOLIC BLOOD PRESSURE 82 024 11:18:36 [facility] PULSE OXIMETRY 96 09/01/2023 11:18:36 [facility] WEIGHT 224.9 09/01/2023 11:18:36 [facility] BMI 34kg/m2 09/01/2023 11:18:36 [facility] PAIN 0 09/01/2023 11:18:36 [facility] HEIGHT 68 09/01/2023 11:18:36 [facility] TEMPERATURE 98.2 09/01/2023 11:18:36 [facility] PULSE 64 09/01/2023 11:18:36 [facility] RESPIRATION 16 09/01/2023 11:18:36 [facility] SYSTOLIC BLOOD PRESSURE 150 05/09/19 24 11:10:57 [facility] DIASTOLIC BLOOD PRESSURE 82 024 11:10:57 [facility] PULSE OXIMETRY 96 05/09/2023 11:10:57 [facility] WEIGHT 223 05/09/2023 11:10:57 [facility] BMI 33kg/m2 05/09/2023 11:10:57 [facility] PAIN 0 05/09/2023 11:10:57 [facility] TEMPERATURE 97.8 05/09/2023 11:10:57 [facility] PULSE 57 05/09/2023 11:10:57 [facility] RESPIRATION 18 05/09/2023 11:10:57 [facility] Encounters Combined list of: 1) Encounters from [facility] facilities going back up to thelast 18 months. 2) Encounters from the Department of Defense facilities going back up to 280 months. Location Location Details Encounter Type Encounter Number Reason For Visit Attending Provider ADM Date DC Date Status Disposition Source [facility] Outpatient Encounter [id number] 09/20 [facility] Outpatient [facility]counter [id number] 09/26 [facility] OFFICE O/P EST LOW 20-29 MIN [id number] Diagnos is: ICD-10- CM E11.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< br/> Cesar VELARDE 09/26 [facility] OFF/OP EST MAY X REQ PHY/QHP [id number] Diagnos is: ICD-10- CM Z71.89 Other specifi ed prevocational/rehabilitation counselor ing<br/ > TARUN FRANCE 09/26 [facility] ORTHOPEDIC [place] [id number] Diagnos is: ICD-10- CM E11.8 Type 2 diabete s mellitu s with unspeci fied complic ations< br/> Cesar VELARDE AVID 10/03 [facility] INFRARED THERAPY [id number] Diagnos is: ICD-10- CM M54.50 Low back pain, unspeci fied
LENNOX MENDOZA ISTOPHER M 10/06 [facility] Out[facility] Encounter [id number] 10/10 [facility] DIABETIC CUSTOM MOLDED SHOE [id number] Diagnos is: ICD-10- CM E11.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< br/> MELISSA SHARPE 10/11 [facility] OFF/OP EST JULY X REQ PHY/QHP [id number] Diagnos is: ICD-10- CM Z79.01 custodial () use of anticoa gulants
Connor ESCALONA 10/11 [facility] [place] PRO PHONE CALL 5-10 MIN [id number] [phone] Diagnos is: ICD-10- CM Z79.01 custodial () use of anticoa gulants
YOVANA ORDONEZ A 10/12 [place] [facility] PRO PHONE CALL 21-30 MIN [id number] [phone] Diagnos is: ICD-10- CM Z79.01 custodial () use of anticoa gulants
YOVANA ORDONEZ A 10/12 [place] [facility] FOOT ARCH SUPPORT REMOV TRAVIS [id number] Diagnos is: ICD-10- CM E11.8 Type 2 diabete s mellitu s with unspeci fied complic ations< br/> Cesar VELARDE AVID 10/18 [facility] LOW-LEVEL LASER THERAPY [id number] Diagnos is: ICD-10- CM M54.50 Low back pain, unspeci fied
LENNOX MENDOZA ISTOPHER M 10/24 [facility] OFFICE O/P EST MOD 30-39 MIN [id number] Diagnos is: ICD-10- CM N18.30 Chronic kidney disease , stage 3 unspeci fied
Leroy STEVENS KANG Cisneros 11/01 [facility] OFFICE O/P EST MOD 30-39 MIN [id number] Diagnos is: ICD-10- CM N18.30 Chronic kidney disease , stage 3 unspeci fied
Leroy STEVENS A 11/01 [facility] DIABETIC CUSTOM MOLDED SHOE [id number] Diagnos is: ICD-10- CM E11.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< br/> SIM GALLOWAY MARTA 11/07 [facility] ORTHOPEDIC [place] [id number] Diagnos is: ICD-10- CM E11.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< br/> Cesar VELARDE AVID 11/21 [facility] INFRARED THERAPY [id number] Diagnos is: ICD-10- CM M54.9 Dorsalg ia, unspeci fied
GAUNYA,CHR ISTOPHER M 11/29 [facility] Out[facility] En[facility] [id number] 12/06 [facility] Out[facility] Encounter [id number] 12/06 [facility] OFFICE O/P EST MOD 30-39 MIN [id number] Diagnos is: ICD-10- CM E11.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< br/> TERESITA MANCERA RD D 12/14 [facility] IMMUNIZATI [place] ADMIN [id number] D 12/14 [facility] INFRARED THERAPY [id number] Diagnos is: ICD-10- CM M54.9 Dorsalg ia, unspeci fied
GAUNYA,[facility] ISTOPHER M 12/15 [facility] Outpatient Encounter [id number] 12/26 [facility] OFFICE O/P EST LOW 20-29 MIN [id number] Diagnos is: ICD-10- CM E11.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< br/> Cesar VELARDE AVID 12/27 [facility] HEARING AID FITTING/CH ECKING [id number] Diagnos is: ICD-10- CM Z46.1 Encount er for fitting and adjustm ent of hearing aid<br/ > CHARANJIT BETANCOURT L 01/10 [facility] INFRARED THERAPY [id number] Diagnos is: ICD-10- CM M54.50 Low back pain, unspeci fied
GAUNYA,CHR ISTOPHER M 01/17 [facility] Out[facility] En[facility] [id number] 02/20 [facility] Out[facility] Encounter [id number] 03/09 [facility] Out[facility] Encounter [id number] 03/14 [facility] Out[facility] Encounter [id number] 03/17 [facility] Outpatient Encounter [id number] 03/17 [facility] INFRARED THERAPY [id number] Diagnos is: ICD-10- CM M54.9 Dorsalg ia, unspeci fied
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
Leroy STEVENS 04/05 [facility] OFFICE O/P EST LOW 20 MIN [id number] Diagnos is: ICD-10- CM L60.0 Ingrowi ng nail
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
GAUNYA,[facility] ISTOPHER M 04/24 [facility] OFFICE O/P EST LOW 20 MIN [id number] Diagnos is: ICD-10- CM E11.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< br/> TERESITA MANCERA RD 04/26 [facility] FIT SPECTACLES BIFOCAL [id number] Diagnos is: ICD-10- CM Z46.0 Encount er for fit/adj st of spectac les and contact lenses< br/> BISMARK MCFARLAND 04/26 [facility] Outpatient Encounter [id number] 05/05 [facility] Outpatient Encounter [id number] 05/08 [facility] OFFICE O/P EST MOD 30 MIN [id number] Diagnos is: ICD-10- CM 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
Leroy STEVENS 05/09 [facility] Out[facility] En[facility] [id number] 05/11 [facility] RPR&REFITG SPECT XCP APHAKIA [id number] Diagnos is: ICD-10- CM Z46.0 Encount er for fit/adj st of spectac les and contact lenses< br/> FELTON ARGUETA 05/14 [facility] INFRARED THERAPY [id number] Diagnos is: ICD-10- CM M54.9 Dorsalg ia, unspeci fied
GAUNYA,CHR ISTOPHER M 05/28 [facility] Out[facility] En[facility] [id number] 06/13 [facility] Outpatient Encounter [id number] 06/20 [facility] TRIM NAIL(S) [id number] Diagnos is: ICD-10- CM E11.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< br/> SIM GALLOWAY MARTA 07/04 [facility] INFRARED THERAPY [id number] Diagnos is: ICD-10- CM M54.9 Dorsalg ia, unspeci fied
GAUNYA,CHR ISTOPHER M 07/05 [facility] Out[facility] En[facility] [id number] 07/18 [facility] Outpatient Encounter [id number] 07/31 [facility] ACUPUNCT W/O STIMUL ADDL 15M [id number] Diagnos is: ICD-10- CM M54.50 Low back pain, unspeci fied
GAUNYA,CHR ISTOPHER M 08/01 [facility] Out[facility] En[facility] [id number] 1.08/07 [facility] Out[facility] Encounter [id number] 08/08 [facility] Outpatient Encounter [id number]/09 [facility] Out[facility] Encounter [id number] 1.08/21 [facility] HEARING AID REPAIR/MOD IFYING [id number] Diagnos is: ICD-10- CM Z46.1 Encount er for fitting and adjustm ent of hearing aid<br/ > YENIFER BRADEN 08/22 [facility] OFFICE O/P EST SF 10 MIN [id number] Diagnos is: ICD-10- CM E11.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< br/> TERESITA MANCERA RD 08/31 [facility] Outpatient Encounter [id number] 08/31 [facility] MTMS BY PHARM ADDL 15 MIN [id number] Diagnos is: ICD-10- CM E11.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< br/> MAK FRENCH 09/10 [facility] Out[facility] Encounter [id number] 09/11 [facility] QNHP OL DIG ASSMT&MGMT 5-10 [id number] Diagnos is: ICD-10- CM E11.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< br/> Kasi BYRNE 09/11 [facility] MTMS BY PHARM ADDL 15 MIN [id number] Diagnos is: ICD-10- CM E11.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< br/> MAK FRENCH 09/14 [facility] Outpatient Encounter [id number] 09/17 [facility] MTMS BY PHARM ADDL 15 MIN [id number] Diagnos is: ICD-10- CM E11.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< br/> MAK FRENCH CYNTHIA 10/01 [facility] ACUPUNCT W/O STIMUL ADDL 15M [id number] Diagnos is: ICD-10- CM M54.9 Dorsalg ia, unspeci fied
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
Leroy STEVENS A 10/10 [facility] Out[facility] En[facility] [id number] 10/10 [facility] OFFICE O/P EST LOW 20 MIN [id number] Diagnos is: ICD-10- CM L60.0 Ingrowi ng nail
MARTHA HAYES D 10/10 [facility] OFF/OP EST MAY X REQ PHY/QHP [id number] [id number] Diagnos is: ICD-10- CM Z71.89 Other specifi ed prevocational/rehabilitation counselor ing<br/ > TARUN FRANCE A 10/17 [facility] OFFICE O/P EST SF 10 MIN [id number] Diagnos is: ICD-10- CM L30.9 Dermati tis, unspeci fied
TERESITA MANCERA RD D 10/17 [facility] Out[facility] En[facility] [id number] 10/26 [facility] MTMS BY PHARM ADDL 15 MIN [id number] Diagnos is: ICD-10- CM E11.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< br/> MAK FRENCH 10/29 [facility] ACUPUNCT W/O STIMUL ADDL 15M [id number] 1. Diagnos is: ICD-10- CM M54.9 Dorsalg ia, unspeci fied
GAUNYA,[facility] ISTOPHER M 11/05 [facility] Outpatient Encounter [id number] 11/15 [facility] MTMS BY PHARM EST 15 MIN [id number] 1. Diagnos is: ICD-10- CM E11.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< br/> MANOLOMAK CYNTHIA 11/19 [facility] MTMS BY PHARM EST 15 MIN [id number] [id number] Diagnos is: ICD-10- CM E11.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< br/> FRENCH,MAK CYNTHIA 12/17 [facility] TRIM NAIL(S) [id number] 1. Diagnos is: ICD-10- CM E11.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< br/> SIM GALLOWAY 12/26 [facility] INFRARED THERAPY [id number] [id number] Diagnos is: ICD-10- CM M54.9 Dorsalg ia, unspeci fied
GAUNYA,CHR ISTOPHER M 12/28 [facility] OFFICE O/P EST LOW 20 MIN [id number] Diagnos is: ICD-10- CM E11.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< br/> TERESITA MANCERA RD 12/31 [facility] Outpatient Encounter [id number]/03 [facility] MTMS BY PHARM EST 15 MIN [id number] Diagnos is: ICD-10- CM E11.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< br/> FRENCH,MAK CYNTHIA 01/07 [facility] OFFICE O/P NEW MOD 45 MIN [id number] [id number] Diagnos is: ICD-10- CM M54.59 Other low back pain
SORAIDACHARANJITU RA 01/28 [facility] MTMS BY PHARM EST 15 MIN [id number] [id number] Diagnos is: ICD-10- CM E11.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< br/> MANOLOMAK CYNTHIA 01/29 [facility] MANUAL THERAPY /> [place] [id number] Diagnos is: ICD-10- CM M54.59 Other low back pain
CHARANJIT QUIGLEYU RA 01/31 [facility] INFRARED THERAPY [id number] Diagnos is: ICD-10- CM M54.50 Low back pain, unspeci fied
GAUNYA,CHR ISTOPHER M 02/04 [facility] Outpatient Encounter [id number] 02/05 [facility] MANUAL THERAPY [place] [id number] Diagnos is: ICD-10- CM M54.59 Other low back pain
ARCADIO QUIGLEY RA 02/05 [facility] MECHANICAL TRACTION THERAPY [id number] 1. Diagnos is: ICD-10- CM M54.59 Other low back pain
ARCADIO QUIGLEY RA 02/08 [facility] MECHANICAL TRACTION THERAPY [id number] 1. Diagnos is: ICD-10- CM M54.59 Other low back pain
ARCADIO QUIGLEY RA 02/11 [facility] EXERCISE CLASS [id number] 1. Diagnos is: ICD-10- CM Y93.42 Activit y, yoga
ZANVETTOR, MARIOLA 02/14 [facility] EXERCISE CLASS [id number] Diagnos is: ICD-10- CM Y93.42 Activit y, yoga
ZANVETTOR, MARIOLA 02/21 [facility] Out[facility] En[facility] [id number] 02/21 [facility] En[facility] [id number] 02/23 [facility] MTMS BY PHARM ADDL 15 MIN [id number] Diagnos is: ICD-10- CM E11.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< br/> MAK FRENCH CYNTHIA 02/28 [facility] En[facility] [id number] [facility] Encounter [id number] 1.02/28 [facility] INFRARED THERAPY [id number] Diagnos is: ICD-10- CM M54.9 Dorsalg ia, unspeci fied
GAUNALEX,CHR ISTOPHER M 03/08 [facility] [id number] [facility] En[facility] [id number] [facility] En[facility] [id number] [facility] Encounter [id number] [facility] En[facility] [id number] [facility] OFF/OP EST MAY X REQ PHY/QHP [id number] Diagnos is: ICD-10- CM Z71.89 Other specifi ed prevocational/rehabilitation counselor ing<br/ > TARUN FRANCE 03/18 [facility] [place] [facility] ([id number]) MTMS BY PHARM EST 15 MIN [id number] Diagnos is: ICD-10- CM Z51.81 Encount er for therape utic drug level monitor ing<br/ > AYDEELENNOX ISTINE F 03/19 [facility] ([id number]) Social History Combined list of available smoking, tobacco, and other social history from Department of Defense and Veterans Affairs facilities. Social History Type Response Date Comment Source Tobacco smoking status [facility] FORMER USER 04/26/2023 [facility] [place] [facility]/26[facility]2023 [facility] [place] [facility] History [facility] tobacco use [facility]-TOBACCO FORMER USER 03/30/2022 [facility] [place] [facility] 03/17/2021 [facility] [place] [facility] OR MORE 03[facility]31/2020 [facility] [place] [facility] OR MORE 11[facility]23/2018 [facility] [place] [facility] History of tobacco use [facility]-TOBACCO NEVER USED 11/22/2017 [facility] [place] [facility] History of tobacco use LIFETIME NON-TOBACCO USER 03/14/2017 [facility] [place] [facility] History of tobacco use LIFETIME NON-TOBACCO USER 03/01/2016 [facility] [place] [facility] History of tobacco use QUIT TOBACCO USE > 7 YEARS AGO 02/10/2015 quit in 1963 [facility] [place] [facility] History [facility] tobacco use HISTORY OF SMOKING 11/30/2004 Patient states he quit smoking in 1963. [place] History of tobacco use HISTORY OF SMOKING 05/28/2003 quit x 40yrs [place] Plan of Care List of future care [facility]. Additional future care activities may be listed in the Assessment and Plan section. Date/Time Care Activity Care Activity Detail Facili ty 03/25/2024 AMBULATORY - MEDICINE AMBULATORY [facility] 04/04/2024 AMBULATORY - MEDICINE AMBULATORY - [facility]IC[facility] 04[facility]05/2024 AMBULATORY - MEDICINE AMBULATORY - [facility]IC[facility] 04[facility]08/2024 AMBULATORY - MEDICINE AMBULATORY - [facility] 04[facility]23/2024 AMBULATORY - MEDICINE AMBULATORY - [facility]IC[facility] [place] 04/30/2024 AMBULATORY - MEDICINE AMBULATORY - [facility] [place] 05/03/2024 AMBULATORY - MEDICINE AMBULATORY - MEDICI [facility] 03/11/2024 Laboratory - [facility] Order PTH INTACT BLOOD (RED-PLAIN) SERUM [facility] 03/11/2024 Laboratory - [facility] Order PO4 BLOOD (SST-SERUM) SP [facility] 03/11/2024 Laboratory - [facility] Order VITAMIN D (25-OH) BLOOD (SST-SERUM) SP ONCE [facility] 03/11/2024 Laboratory - [facility] Order CALCIUM BLOOD (SST-SERUM) [facility] 03/11/2024 Laboratory - [facility] Order MICROALBUMIN CREATININE RATIO PANEL URINE (RANDOM) [facility] 03/11/2024 Laboratory - [facility] Order MAGNESIUM BLOOD (SST-SERUM) SP [facility] 03/11/2024 Laboratory - [facility] Order BASIC METABOLIC PANEL (non-fasting) BLOOD (SST-SERUM) [facility] 03/11/2024 Laboratory - [facility] Order CBC BLOOD (LAV-BLOOD) [facility] 03/11/2024 Laboratory - [facility] Order FERRITIN BLOOD (SST-SERUM) [facility] 03/11/2024 Laboratory - [facility] Order IRON and TIBC PANEL BLOOD (SST-SERUM) [facility]/11/2024 Laboratory - [facility] Order LIPID PANEL, NON FASTING BLOOD (SST-SERUM) [facility]
--- OUTSIDE RECORDS SUMMARY | 2024-03-20 13:55 | XMS_ITS | Encounter Summary ---
Author Name [facility] [place] [facility] [place] Address [address] [place] [address] Care Team Providers Care Data Engineer Name Role Phone SOFI MANCERA Primary Care Provider Unavailrj haque Insurance Providers: All historical and current Section Date Range: From patient's date of to the date document was created. This section includes the names of all active insurance providers for the patient. Insurance Provider Type of Coverage Plan Name Start of Policy Coverage End of Policy Coverage Group Number Member ID Insurance Provider's Telephone Number Policy Sexton's Name Patient's Relationship to Policy Sexton [place] JONELLE Haque Mar 13, 2015 [id number] VERONICA BROWN RT PATIENT MEDICARE (WNR) MEDICARE (M) PART B Aug 12, 2007 PART B [id number] VERONICA BROWN RT PATIENT MEDICARE (WNR) MEDICARE (M) PART A Jan 12, 2004 PART A [id number] VERONICA BROWN RT PATIENT Selected Encounter This section includes the information on record at [place] for the Encounter. Date/Time Encounter Type Encounter Description Reason Provider Source Mar 28, 2023 10:30 AM INFRARED THERAPY CI[facility] TREATMENT ICD-10-CM M54.9 Dorsalgia, unspecified BRICE WALSH IHE Encounter Template Text not used by [facility] Assessments - Encounter Diagnoses This section includes the primary and secondary diagnoses documented for the Encounter. Date/Time Primary/Secondary Diagnosis Diagnosis Name Provider Source Apr 06, 2023 10:31 AM PRIMARY Dorsalgia, unspecified BRICE WALSH [place] [facility] [place] [facility] Apr 06, 2023 10:31 AM SECONDARY Low back pain, unspecified BRICE WALSH M [place] [facility] [place] [facility] Plan of Treatment: Future Appointments (+ 6 months) and Future Tests (+/- 45 days) The Plan of Treatment section includes future care activities for the patient from all [place] treatmentfacilities. This section includes future appointments and future orders which are active, pending or scheduled. Future Appointments This section includes appointments that were scheduled to occur 6 months from the date of the Encounter, up to a maximum of 20 appointments. The data comes from all [place] treatment facilities. Appointment Date/Time Appointment Type Appointme nt Facility Name Mar 29, 2023 10:00 AM [facility]BULAT[facility] [place] [facility] Apr 05, 2023 11:00 AM [facility] [place] [facility] Apr 06, 2023 12:00 PM [place] [facility] [place] [facility] Apr 24, 2023 11:30 AM [facility] [place] [facility] Apr 24, 2023 12:30 PM [facility] [place] [facility] Apr 26, 2023 10:00 AM [facility] [place] [facility] Apr 26, 2023 11:00 AM [facility] [place] [facility] May 09, 2023 11:00 AM [facility]INE [facility] [place] [facility] May 12, 2023 10:00 AM [facility] [place] [facility] May 15, 2023 11:20 AM [facility] [place] [facility] May 29, 2023 11:00 AM [facility]INE [facility] [place] [facility] Jul 05, 2023 03:00 PM [facility]ULATORY [facility]ICINE [facility] [place] [facility] Jul 06, 2023 10:30 AM [facility]AT[facility]ICINE [facility] [place] [facility] August 02, 2023 02:30 PM [facility]INE [facility] [place] [facility] August 08, 2023 02:00 PM [facility] [place] [facility] Aug 23, 2023 10:30 AM AMBULATORY - [facility]AB MEDICIN E [facility] [place] [facility] Sep 01, 2023 11:30 AM [facility]ULATORY [facility]ICINE [facility] [place] [facility] Sep 11, 2023 02:30 PM [facility]ICINE [facility] [place] [facility] Sep 15, 2023 10:30 AM [facility]ATORY [facility]ICINE [facility] [place] [facility] Lab Results: +/- 30 days of the encounter This section includes the Chemistry and Hematology Lab Results on record with [facility] for the patient. Radiology Reports and Pathology Reports are provided separately, in subsequent sections. Lab Results This section contains the Chemistry/Hematology Results that were resulted 30 days before or 30 daysafter the date of the Encounter. Date/Time Source Result Type Result - Unit Interpretation Reference Range Comment Apr 26, 2023 11:12 AM [facility] [place] [facility] PO4 Specimen Type: SERUM No comment entered. Ordering Provider: ALYCIA STEVENS Report Released Date/Time: Nov 01, 2022 09:00 PM Reporting Lab: [place] [facility] [place] [facility] [address] [address] Performing Lab: [place] [facility] [place] [facility] [address] [address] PO4 2.5 mg/dL 2.5-5.0 Apr 26, 2023 11:12 AM [place] [facility] [place] [facility] PTH INTACT Specimen Type: SERUM No comment entered. Ordering Provider: ALYCIA STEVENS Report Released Date/Time: Nov 01, 2022 09:00 PM Reporting Lab: [facility] [place] [facility] [address] [facility] [address] Performing Lab: [place] [facility] [place] [facility] [address] [address] PTH INTACT 118.5 pg/mL H 10-65 Apr 26, 2023 11:12 AM [facility] URIC ACID Specimen Type: SERUM No comment entered. Ordering Provider: ALYCIA STEVENS Report Released Date/Time: Nov 01, 2022 09:00 PM Reporting Lab: [facility] [address] [address] Performing Lab: [facility]N [facility]ITAL[facility] [address] [address] URIC ACID 3.1 mg/dL L 3.5-7.2 Apr 26, 2023 11:12 AM [facility] ALKALINE PHOSPHATASE Specimen Type: SERUM No comment entered. Ordering Provider: ALYCIA STEVENS Report Released Date/Time: Nov 01, 2022 09:00 PM Reporting Lab: [facility]ITAL[facility]ETS [facility] [address] [address] Performing Lab: [facility]ITALUSETS [address] [address] ALKALINE PHOSPHATASE 78 U/L 40-150 Apr 26, 2023 11:12 AM [facility] FERRITIN Specimen Type: SERUM No comment entered. Ordering Provider: ALYCIA STEVENS Report Released Date/Time: Nov 01, 2022 09:00 PM Reporting Lab: [facility]N [facility] [address] [address] Performing Lab: [facility]ITAL[facility]ETS [address] [address] FERRITIN 40 ng/mL 20-300 Apr 26, 2023 11:12 AM [facility] IRON & TIBC PANEL Specimen Type: SERUM No comment entered. Ordering Provider: ALYCIA STEVENS Report Released Date/Time: Nov 01, 2022 09:00 PM Reporting Lab: [facility]ITALN [facility]ITALUSETS [facility] [address] [address] Performing Lab: [facility]ITALN [facility]ITALUSETS [address] [address] TIBC 341 ug/dL 204-475 IRON 69 ug/dL 40-160 Transferrin Saturation 20.3 20.0-50.0 Apr 26, 2023 11:12 AM [facility] MAGNESIUM Specimen Type: SERUM No comment entered. Ordering Provider: ALYCIA STEVENS Report Released Date/Time: Nov 01, 2022 09:00 PM Reporting Lab: [address] [address] Performing Lab: [address] [address] MAGNESIUM 2.0 mg/dL 1.6-2.6 Apr 26, 2023 11:12 AM [facility] CBC Specimen Type: BLOOD No comment entered. Ordering Provider: ALYCIA STEVENS Report Released Date/Time: Nov 01, 2022 09:00 PM Reporting Lab: [address] [address] Performing Lab: [address] [address] WBC 8.31 10*3/uL 4.50-11.00 RBC 4.42 10*6/uL 4.23-5.66 HGB 13.2 g/dL 12.8-17 HCT 41.3 39.2-50.4 MCV 93.4 fL 82-99 MCHC 32.0 g/dL 30.8-35.1 PLT 196 10*3/uL 140-360 RDW-CV 14.3 12.0-16.0 MCH 29.9 pg 26.2-32.6 Apr 26, 2023 11:12 AM [facility] CALCIUM Specimen Type: SERUM No comment entered. Ordering Provider: ALYCIA STEVENS Report Released Date/Time: Nov 01, 2022 09:00 PM Reporting Lab: [address] [address] Performing Lab: [address] [address] CALCIUM 9.4 mg/dL 8.5-10.2 Apr 26, 2023 11:12 AM [facility] VITAMIN D (25-[place]) Specimen Type: SERUM No comment entered. Ordering Provider: ALYCIA STEVENS Report Released Date/Time: Nov 01, 2022 09:00 PM Reporting Lab: [facility]ITALUSETS [facility] [address] [address] Performing Lab: [address] [address] VITAMIN D (25-OH) 36 ng/mL 20-50 Apr 26, 2023 11:12 AM [facility] HDL CHOLESTEROL Specimen Type: SERUM No comment entered. Ordering Provider: ALYCIA STEVENS Report Released Date/Time: Nov 01, 2022 09:00 PM Reporting Lab: [facility] [address] [address] Performing Lab: [address] [address] HDL CHOLESTEROL 49 mg/dL 40-60 Apr 26, 2023 11:12 AM [facility] CHOLESTEROL Specimen Type: SERUM No comment entered. Ordering Provider: ALYCIA STEVENS Report Released Date/Time: Nov 01, 2022 09:00 PM Reporting Lab: [facility] [address] [address] Performing Lab: [address] [address] CHOLESTEROL 131 mg/dL Apr 26, 2023 11:12 AM [facility] MICROALBUMIN CREATININE RATIO PANEL Specimen Type: URINE No comment entered. Ordering Provider: ALYCIA STEVENS Report Released Date/Time: Nov 01, 2022 09:00 PM Reporting Lab: [facility]N [facility]US[facility] [address] [address] Performing Lab: [facility] [address] [address] MICROALBUMIN/C REATININE RATIO 129.2 mg/g H 0-29.9 MICROALBUMIN,Q UANTITATIVE 12.5 mg/dL RR UNAVAIL CREATININE URINE 96.73 mg/dL Apr 26, 2023 11:12 AM [facility] BASIC METABOLIC PANEL (non-fasting) Specimen Type: SERUM No comment entered. Ordering Provider: ALYCIA STEVENS Report Released Date/Time: Nov 01, 2022 09:00 PM Reporting Lab: [facility] [address] [address] Performing Lab: [address] [address] UREA NITROGEN 23 mg/dL 7-25 GLUCOSE 136 mg/dL H 65-100 SODIUM 140 mmol/L 135-145 POTASSIUM 4.7 mmol/L 3.5-5.0 CHLORIDE 109 mmol/L 100-110 CO2 25 meq/L 20-30 CREATININE, Serum 2.01 mg/dL H 0.50-1.40 eGFR(CKD-EPI 2020) 32 mL/min L >60 Apr 06, 2023 11:39 AM [facility] TSH Specimen Type: SERUM No comment entered. Ordering Provider: SOFI MANCERA Report Released Date/Time: Apr 05, 2023 04:18 PM Reporting Lab: [facility] [address] [address] Performing Lab: [address] [address] TSH 1.33 u[IU]/mL 0.35-5.00 Apr 06, 2023 11:39 AM [facility] HEMOGLOBIN A1C PANEL Specimen Type: BLOOD Comment: Values obtained from A1C measurements can vary. For atypical A1C assays, a reported value of 7.0 could actually be between 6.72 and 7.28 if measured by a reference method. A reported value of 9.0 could actually be between 8.73 and 9.27. Ref: http://www.ngs p.org/CAPdata. asp Ordering Provider: SOFI MANCERA Report Released Date/Time: Apr 05, 2023 04:18 PM Reporting Lab: [address] [address] Performing Lab: [address] [place] [address] HEMOGLOBIN A1C 6.4 H 4.0-5.6 Apr 06, 2023 11:39 AM [facility] LIPID PANEL FASTING Specimen Type: SERUM No comment entered. Ordering Provider: SOFI MANCERA Report Released Date/Time: Apr 05, 2023 04:18 PM Reporting Lab: [facility] [address] Performing Lab: [facility]N [facility]ITALUSETS [address] [address] CHOLESTEROL 142 mg/dL TRIGLYCERIDE 118 mg/dL 0-150 LDL calculated 65 mg/dL 0-129 CHOL/HDL 2.7 HDL CHOLESTEROL 53 mg/dL 40-60 Apr 06, 2023 11:39 AM [facility] MICROALBUMIN CREATININE RATIO PANEL Specimen Type: URINE No comment entered. Ordering Provider: SOFI MANCERA Report Released Date/Time: Apr 05, 2023 04:18 PM Reporting Lab: [facility]N [facility]ITALUSETS [address] [address] Performing Lab: [facility]ITALUS[facility] [address] [address] MICROALBUMIN/C REATININE RATIO 130.6 mg/g H 0-29.9 MICROALBUMIN,Q UANTITATIVE 12.8 mg/dL RR UNAVAIL CREATININE URINE 97.99 mg/dL Apr 06, 2023 11:39 AM [facility] URIC ACID Specimen Type: SERUM No comment entered. Ordering Provider: SOFI MANCERA Report Released Date/Time: Apr 05, 2023 04:19 PM Reporting Lab: [facility]ITAL[facility] [address] [address] Performing Lab: [facility] [address] [address] URIC ACID 2.9 mg/dL L 3.5-7.2 Apr 06, 2023 11:39 AM [facility] URINALYSIS CLEAN CATCH Specimen Type: URINE Comment: If Glucose = >500 and Ketones are positive, please alert the Physician. Ordering Provider: SOFI MANCERA Report Released Date/Time: Apr 05, 2023 04:18 PM Reporting Lab: [address] [address] Performing Lab: [address] [address] UA COLOR Light-Yellow Yellow UA APPEARANCE Clear Clear UA GLUCOSE NEGATIVE mg/dL Negative UA KETONES NEGATIVE mg/dL Negative UA BLOOD NEGATIVE mg/dL Negative UA PROTEIN 20 mg/dL Negative UA NITRITE NEGATIVE mg/dL Negative UA BILIRUBIN NEGATIVE mg/dL Negative UA SPECIFIC GRAVITY 1.017 1.016-1.02 2 UA pH 6.0 5.0-9.0 UA UROBILINOGEN <2.0 mg/dL <2.0 UA LEUKOCYTE NEGATIVE Negative Apr 06, 2023 11:39 AM [facility] LIVER FUNCTION Specimen Type: SERUM No comment entered. Ordering Provider: SOFI MANCERA Report Released Date/Time: Apr 05, 2023 04:18 PM Reporting Lab: [address] [address] Performing Lab: [address] [address] PROTEIN,TOTAL 6.3 g/dL 6.0-8.3 ALBUMIN 3.6 g/dL 3.5-5.0 ALKALINE PHOSPHATASE 70 U/L 40-150 AST 14 U/L 5-34 ALT 10 U/L BILIRUBIN, TOTAL 0.5 mg/dL 0.2-1.2 Apr 06, 2023 11:39 AM [facility] BASIC METABOLIC PANEL (fasting) Specimen Type: SERUM No comment entered. Ordering Provider: SOFI MANCERA Report Released Date/Time: Apr 05, 2023 04:18 PM Reporting Lab: [address] [address] Performing Lab: [address] [address] UREA NITROGEN 23 mg/dL 7-25 GLUCOSE 163 mg/dL H 65-100 SODIUM 140 mmol/L 135-145 POTASSIUM 4.7 mmol/L 3.5-5.0 CHLORIDE 108 mmol/L 100-110 CO2 23 meq/L 20-30 CREATININE, Serum 1.90 mg/dL H 0.50-1.40 eGFR(CKD-EPI 2020) 34 mL/min L >60 Apr 06, 2023 11:39 AM [facility] CBC AND DIFF (AUTO) Specimen Type: BLOOD No comment entered. Ordering Provider: SOFI MANCERA Report Released Date/Time: Apr 05, 2023 04:18 PM Reporting Lab: [facility] [address] [address] Performing Lab: [facility] [address] [address] WBC 7.36 10*3/uL 4.50-11.00 RBC 4.36 10*6/uL 4.23-5.66 HGB 13.0 g/dL 12.8-17 HCT 40.9 39.2-50.4 MCV 93.8 fL 82-99 MCHC 31.8 g/dL 30.8-35.1 PLT 188 10*3/uL 140-360 RDW-CV 13.6 12.0-16.0 Wells, Abs 0.63 10*3/uL 0.30-1.10 MCH 29.8 pg 26.2-32.6 Neut % 66.9 43.7-75.8 Lymph % 19.2 14.0-42.3 Wells % 8.6 5.1-13.7 Eos % 4.6 0.4-6.8 Baso % 0.4 0.1-2.0 Neut, Abs 4.93 10*3/uL 2.20-7.60 Lymph, Abs 1.41 10*3/uL 1.00-3.20 Eos, Abs 0.34 10*3/uL 0.03-0.44 Baso, Abs 0.03 10*3/uL 0.01-0.13 Immature Gran % 0.3 0.0-0.7 Immature Gran, Abs 0.02 10*3/uL 0.00-0.06 Mar 23, 2023 02:03 PM [facility] HDL CHOLESTEROL Specimen Type: SERUM No comment entered. Ordering Provider: ALYCIA STEVENS Report Released Date/Time: Mar 14, 2023 10:53 AM Reporting Lab: [facility]ITAL[facility]ETS [facility] [address] [address] Performing Lab: [place] [facility] [address] [address] HDL CHOLESTEROL 49 mg/dL 40-60 Mar 23, 2023 02:03 PM [facility] FERRITIN Specimen Type: SERUM No comment entered. Ordering Provider: ALYCIA STEVENS Report Released Date/Time: Mar 14, 2023 10:53 AM Reporting Lab: [facility] TRN [facility]ITALUSETS [facility] [address] [facility] [address] Performing Lab: [facility]N [facility] [address] [address] FERRITIN 34 ng/mL 20-300 Mar 23, 2023 02:03 PM [facility] MICROALBUMIN CREATININE RATIO PANEL Specimen Type: URINE No comment entered. Ordering Provider: ALYCIA STEVENS Report Released Date/Time: Mar 14, 2023 10:53 AM Reporting Lab: [facility] TRN [facility]ITALUSETS [facility] [address] [facility] [address] Performing Lab: [facility] TRN [facility]ITAL[facility] [address] [address] MICROALBUMIN/C REATININE RATIO 138.3 mg/g H 0-29.9 MICROALBUMIN,Q UANTITATIVE 17.1 mg/dL RR UNAVAIL CREATININE URINE 123.64 mg/dL Mar 23, 2023 02:03 PM [facility] IRON & TIBC PANEL Specimen Type: SERUM No comment entered. Ordering Provider: ALYCIA STEVENS Report Released Date/Time: Mar 14, 2023 10:53 AM Reporting Lab: [facility] TRN [facility]ITALUSETS [facility] [address] [address] Performing Lab: [facility]L [facility]N [facility]OSPITALUSE[address] [address] TIBC 347 ug/dL 204-475 IRON 65 ug/dL 40-160 Transferrin Saturation 18.7 L 20.0-50.0 Mar 23, 2023 02:03 PM [facility] CALCIUM Specimen Type: SERUM No comment entered. Ordering Provider: ALYCIA STEVENS Report Released Date/Time: Mar 14, 2023 10:53 AM Reporting Lab: [facility]N [facility]ITALUSES[facility] [address] [address] Performing Lab: [address] [address] CALCIUM 9.1 mg/dL 8.5-10.2 Mar 23, 2023 02:03 PM [facility] MAGNESIUM Specimen Type: SERUM No comment entered. Ordering Provider: ALYCIA STEVENS Report Released Date/Time: Mar 14, 2023 10:53 AM Reporting Lab: [address] [address] Performing Lab: [address] [address] MAGNESIUM 2.0 mg/dL 1.6-2.6 Mar 23, 2023 02:03 PM [facility] VITAMIN D (25-OH) Specimen Type: SERUM No comment entered. Ordering Provider: ALYCIA STEVENS Report Released Date/Time: Mar 14, 2023 10:53 AM Reporting Lab: [address] [address] Performing Lab: [address] [address] VITAMIN D (25-OH) 33 ng/mL 20-50 Mar 23, 2023 02:03 PM [facility] CHOLESTEROL Specimen Type: SERUM No comment entered. Ordering Provider: ALYCIA STEVENS Report Released Date/Time: Mar 14, 2023 10:53 AM Reporting Lab: [facility] [address] Performing Lab: [facility] [address] CHOLESTEROL 138 mg/dL Mar 23, 2023 02:03 PM [facility] PTH INTACT Specimen Type: SERUM No comment entered. Ordering Provider: ALYCIA STEVENS Report Released Date/Time: Mar 14, 2023 10:53 AM Reporting Lab: [facility] [place] [facility] [address] [facility] [address] Performing Lab: [place] [facility] [place] [facility] [address] [facility] [address] PTH INTACT 116.9 pg/mL H 10-65 Mar 23, 2023 02:03 PM [facility]N [facility]ITAL[facility]ETS [facility] ALKALINE PHOSPHATASE Specimen Type: SERUM No comment entered. Ordering Provider: ALYCIA STEVENS Report Released Date/Time: Mar 14, 2023 10:53 AM Reporting Lab: [facility] [place] [address] [address] Performing Lab: [facility] TRN [facility]ITALUSETS [address] [address] ALKALINE PHOSPHATASE 74 U/L 40-150 Mar 23, 2023 02:03 PM [facility]N [facility]ITALUSETS [facility] URIC ACID Specimen Type: SERUM No comment entered. Ordering Provider: ALYCIA STEVENS Report Released Date/Time: Mar 14, 2023 10:53 AM Reporting Lab: [facility] [place] [address] [address] Performing Lab: [facility] TRN [facility]ITAL[facility] [address] [address] URIC ACID 3.0 mg/dL L 3.5-7.2 Mar 23, 2023 02:03 PM [facility]N [facility]ITALUSETS [facility] PO4 Specimen Type: SERUM No comment entered. Ordering Provider: ALYCIA STEVENS Report Released Date/Time: Mar 14, 2023 10:53 AM Reporting Lab: [facility] [place] [facility] [address] [facility] [facility] [address] Performing Lab: [place] [facility] [place] [address] [address] PO4 2.2 mg/dL L 2.5-5.0 Mar 23, 2023 02:03 PM [facility] CBC Specimen Type: BLOOD No comment entered. Ordering Provider: ALYCIA STEVENS A Report Released Date/Time: Mar 14, 2023 10:53 AM Reporting Lab: [facility] [address] [address] Performing Lab: [address] [address] WBC 6.76 10*3/uL 4.50-11.00 RBC 4.44 10*6/uL 4.23-5.66 HGB 13.6 g/dL 12.8-17 HCT 41.6 39.2-50.4 MCV 93.7 fL 82-99 MCHC 32.7 g/dL 30.8-35.1 PLT 188 10*3/uL 140-360 RDW-CV 13.6 12.0-16.0 MCH 30.6 pg 26.2-32.6 Mar 23, 2023 02:03 PM [facility] BASIC METABOLIC PANEL (non-fasting) Specimen Type: SERUM No comment entered. Ordering Provider: ALYCIA STEVENS A Report Released Date/Time: Mar 14, 2023 10:53 AM Reporting Lab: [address] [address] Performing Lab: [address] [address] UREA NITROGEN 20 mg/dL 7-25 GLUCOSE 173 mg/dL H 65-100 SODIUM 144 mmol/L 135-145 POTASSIUM 4.7 mmol/L 3.5-5.0 CHLORIDE 111 mmol/L H 100-110 CO2 23 meq/L 20-30 CREATININE, Serum 1.96 mg/dL H 0.50-1.40 eGFR(CKD-EPI 2020) 33 mL/min L >60 Social History: Smoking Status (Most current) and Tobacco Use (All prior to encounter date) This section includes the most current, and the historical, smoking and tobacco- related health factors from the [place] facility where the Encounter took place. Current Smoking Status This section includes the most current smoking, or tobacco-related health factor, from the [place] facility where the Encounter took place. Date/Time Current Smoking Status Comment María Elena armijo Mar 30, 2022 11:00 AM [place] 15 YRS OR MORE [facility] [place] [facility] Tobacco Use History This section includes a history of the smoking, or tobacco-related health factors, that were collected on or before the date of the Encounter. The data comes from the [place] facility where the Encounter took place. Date/Time Smoking Status/Tobacco Use Comment F acility Mar 30, 2022 11:00 AM VA-TOBACCO QUIT 15 YRS OR MORE [facility] [place] [facility] Mar 17, 2021 01:30 PM VA-TOBACCO FORMER USER [facility] [place] [facility] Mar 17, 2021 01:30 PM VA-TOBACCO NEVER USED [facility] [place] [facility] Mar 17, 2021 01:30 PM VA-TOBACCO QUIT 15 YRS OR MORE [facility] [place] [facility] Mar 31, 2020 10:30 AM VA-TOBACCO FORMER USER [facility] [place] [facility] Mar 31, 2020 10:30 AM VA-TOBACCO QUIT 15 YRS OR MORE [facility] [place] [facility] Nov 23, 2018 12:07 PM VA-TOBACCO FORMER USER [facility] [place] [facility] Nov 23, 2018 12:07 PM VA-TOBACCO QUIT 15 YRS OR MORE [facility] [place] [facility] Nov 22, 2017 10:02 AM VA-TOBACCO NEVER USED [facility] [place] [facility] Mar 14, 2017 09:31 AM LIFETIME NON-TOBACCO USER [facility] [place] [facility] Mar 01, 2016 02:51 PM LIFETIME NON-TOBACCO USER [facility] [place] [facility] Feb 10, 2015 09:31 AM QUIT TOBACCO USE > 7 YEARS AGO quit in 1963 [facility] [place] [facility] Encounter Notes: All associated encounter notes This section contains the clinical notes associated to the Encounter. Date/Time Encounter Note(s) Provider Source Mar 28, 2023 11:21 AM ACUPUNCTURE NOTE: LOCAL TITLE: ACUPUNCTURE TREATMENT STANDARD TITLE: ACUPUNCTURE NOTE DATE OF NOTE: MAR 28, 2023@11:21 ENTRY DATE: MAR 28, 2023@11:21:35 AUTHOR: DAE WALSH EXP COSIGNER: URGENCY: STATUS: COMPLETED KEVIN,JACQUELYN Haque is a 82 WHITE MALE who presents with Back pain Active Problem Back pain M54.9, Onset 11/10/2020 SOFI MANCERA Benign Prostatic Hypertrophy Withou 11/23/2018 SOFI MANCERA Diabetes mellitus E13.9 02/10/2015 SOFI MANCERA Essential hypertension I10. 02/10/2015 SOFI MANCERA Age Macular Degeneration, Wet (Armd 05/12/2014 DALLIN MAOSN Blurred vision (ICD-9-CM 368.8) 368 06/24/2011 DALLIN MASON Hyperuricemia 790.6 10/21/2008 ROGER SO Colonoscopy, 2006, tics, polyps -- 10/21/2008 ROGER SO Renal failure 586. 01/24/2007 RE MCALLISTER Pain in joint involving shoulder re 01/24/2007 RE MCALLISTER Nephrolithiasis * (ICD-9-CM 592.0) 01/24/2007 RE MCALLISTER Microscopic Hematuria 599.72, Onset 01/29/2008 RE MCALLISTER Hyperlipidemia 272.4 03/21/2008 RE MCALLISTER Obesity 278.00 03/21/2008 RE MCALLISTER Essential hypertension 401.9 01/24/2007 RE MCALLISTER Diabetes Mellitus Type II or unspec 01/24/2007 RE MCALLISTER Gastroesophageal Reflux Disorder 53 01/24/2007 RE MCALLISTER Arthritis 716.90 01/24/2007 RE MCALLISTER Date Mar CC / HPI - presents with Hx of chronic back pain that started during his service. Injured during a parachute jump and never reported injury. Pain was intermittent for many years but in the past 10 years has become constant and progressively worse. reports that walking any distance will induce pain in mid and low back of 8/10. Makes grocery shopping and exercising difficult. also states that if he stands for more than 2 hours at a time he will get pain radiation into his hips and lateral aspect of thight bilaterally. Pain is focused from scapula down to sacral spine. 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 He also reports that Icy Hot will take the edge of pain level. Tolerates car rides well. 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 Some residual transient pain in knee. Sleep is restful. 3 hour blocks of sleep punctuated by waking to urinate. Had been waking hourly but now on medication that reduces urgency to urinate. Hx of plantar fasciitis. Not currently painful but has had flairs that are very painful. Appetite good. 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 BM's regular no problems. RESPONSE TO PREVIOUS TREATMENT. Kiester reports that the 2 months between his last treatment was a bit too long. He tells me that the last few weeks he has had more consistent low back pain. Pain is focused lumbar midline and is not worse on the left or the right. Kiester denies any radiation into buttocks or legs. Sleep is still good and no really appearance of his plantar fasciitis. OBJECTIVE General: . Patient in no apparent distress . appropriate attire . here with equanimity Skin: . No effusion/edema . No ecchymosis . No erythema MUSCULOSKELETAL: Observed . no signs of trauma Ambulation . independent ambulation . non-antalgic ambulation Physical Ability to Transfer: . Patient was able to get on/off the treatment table unassisted. Posture . no antalgic posture Extremities . functional AROM BACK / SPINE . no overt deformity of spine . no pelvic unleveling NEUROLOGIC: Mentation . A&Ox3 Gait [ ]antalgic [X]non-antalgic [ ]ataxic [ ]wheel chair, walker, cane ASSESSMENT / SUMMARY Affected Channel: UB, DU, GB Medical Decision Making (MDM) * [ ]Straightforward o [ ]Minimal = 1 self-limited or minor problem * [X]Low o - 2 or more self-limited or minor problems o - 1 stable chronic illness o - 1 acute, uncomplicated illness or injury * [ ]Moderate o - 1 or more chronic illness with exacerbation, progression or side effect from treatment o - 2 or more stable chronic illnesses o - 1 undiagnosed new problem w/uncertain prognosis o - 1 acute illness w/ systemic symptoms o - 1 acute complicated injury * [ ]High o - 1 or more chronic illnesses w/ severe exacerbation, progression, or side effect from treatment o - 1 acute or chronic illness/injury that poses threat to life or bodily function PLAN / RECOMMENDATION: Move to biweekly treatment after current series of treatment is completed. Follow-up [ ]1 WEEK [X]2 WEEKS [ ]3 WEEKS [ ]1 MONTH FREQUENCY OF CARE [ ]1 X WEEKLY, [ ]2 X WEEKLY [X]Bi-Weekly, [ ]Monthly, [ ]Other Seeking: [ ]access to acupuncture for: [ ]pain control [ ]frequency or [ ]as needed [ ]Stress/anxiety reduction, [ ]Other mental health [ ]Addiction/dependence: [ ]Nicotene [ ]Alcohol [ ]Chemical Patient Education: [ ]Encouraged self-care management using active therapies [ ](exercises, therapeutic movement, PT, biofeedback, smoking cessation, health coaching) to manage chronic pain while engaging passive therapies (acupuncture / chiropractic / massage) to manage [ ]acute / [ ]subacute (persistent) pain [ ]Counseled not to view exercise as an analgesic, but as modalities to improve flexibility, strength, and conditioning. [ ]Additionally, counseled to stay within tolerances when doing daily tasks / exercise i.e. use pacing to moderate aggravation of sx. [ ]Attempt 2 to 3 times per week [ ]Modify as needed [ ]Refrain from exercises if aggravation or new symptoms appear [ ]Do not use acupressure over area where you have a wound, severe swelling or lump, active infection, recent blood clots, rash, or areas that are numb. However, you may use other points away from these areas. If you take medications to thin your blood, or have a bleeding or clotting disorder, only use light pressure. [ ]Self-care management encouraged by focus on self-care strategies to improve flexibility, strength and conditioning, not to view exercise as an analgesic yet modalities to improve gross motion as chronic pain undermines core movements. [ ]Discussed expected course of condition and self-care management via weight-management, healthy diet, regular exercise within patient tolerance and pragmatic use of passive modalities for short-term relief stressing not to solely rely on passive modalities. Also counseled on non-pharmacological therapies/treatments such as acupuncture / acupressure on acute episodes of pain. Furthermore, consider exercise therapy, yoga, qigong, checo chi, relaxation technique and/or cognitive-behavior methodologies regarding chronic and/or persistent sub-acute pain. INSTRUCTIONS: [X]Rest, hydrate, eat [ ]BFA Patient Information Home Removal - [ ]Remove after 3 days and dispose of in approved sharpes container or comparable container - [ ]or return to clinic or PCP in three days to remove auricular needles - [ ]Pyonex Needle: remove prior to bathing per physical therapy aid INFORMED CONSENT: Oral Consent obtained on Mar The patient was positioned comfortably. Oral consent was obtained. There was no evidence of infection at the site of needle insertions. Time out was conducted by Dae Walsh L.Ac. Correct patient was identified using two identifiers. Acupuncture treatment including risk/side effects, benefits, alternatives to treatment and the management plan were reviewed with the patient who expressed understanding and agreed. Correct procedure verified by the patient and the provider. PROCEDURES: Set 1 TIME SPENT: 15 Minutes Position:[X]Prone [ ]Supine [ ]Left Side [ ] Right Side [ ]Seated Chair [ ] Massage Chair Points used: [ ]Ear:[ ]Left [ ]Right [ ]Bilateral [ ]BFA Protocol, [ ]NADA Protocol, [ ]Ear Other: [ ]Head: [ ]Neck: [ ]Torso: [ ]Hip / Glute Area: [X]LUE:LK, DB, LI 10 [X]RUE:LK, DB, LI 10 [X]LLE:GB 34, ST 36, SP 6, GB 40 [X]RLE:GB 34, ST 36, SP 6, GB 40 Set 2 TIME SPENT: 15 Minutes Position:[ ]Prone [ ]Supine [ ]Left Side [ ]Right Side [ ]Seated Chair [ ] Massage Chair Points used: [X]Ear:[ ]Left [ ]Right [X]Bilateral [ ]BFA Protocol, [ ]NADA Protocol, [X]Ear Other:Cingulate Gyrus, Thalmic nuclei, Shenmen. [ ]Head: [ ]Neck: [ ]Torso: [ ]Hip / Glute Area: [ ]LUE: [ ]RUE: [ ]LLE: [ ]RLE: [ ]Other therapies: [ ]Cupping: [ ]Cold Laser: [ ]Peizo Pen: [ ]External Qigong: [X]TDP Lamp: feet [ ]Tui Na: [ ]Guasha: [ ]Nutrition Counseling: The procedures were performed and needles removed without complication. 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
--- OUTSIDE RECORDS SUMMARY | 2024-03-20 13:56 | XMS_ITS ---
Author Name [facility] [place] [place] Organization [facility] [place] Address [address] [place] [address] Care Team Providers Care Block Splitter Operator Name Role Phone SOFI MANCERA Primary Care Provider Unavailrj e Insurance Providers: All historical and current Section [...] Relationship to Policy [place] [facility] [place] Mar 13, 2015 [id number] VERONICA BROWN RT PATIENT MEDICARE (WNR) MEDICARE (M) PART B Aug 12, 2007 PART B [id number] VERONICA BROWN RT PATIENT MEDICARE (WNR) MEDICARE (M) PART A Jan 12, 2004 PART A [id number] VERONICA BROWN RT PATIENT Selected Encounter This section includes the information on record at [place] for the Encounter. Date/Time Encounter Type Encounter Description Reason Provider Source Mar 29, 2023 10:00 AM HEARING AID REPAIR/MODIFYIN G AUDIOLOGY ICD-10-CM Z46.1 Encounter for fitting and adjustment of hearing aid NAMAN YOUSSEF Encounter Template Text not used by [place] Assessments - Encounter Diagnoses This section includes the primary and secondary diagnoses documented for the Encounter. Date/Time Primary/Secondary Diagnosis Diagnosis Name Provider Source Mar 29, 2023 10:20 AM PRIMARY Encounter for fitting and adjustment of hearing aid JASMINA NEWELL [place] [facility] [place] [facility] Mar 29, 2023 10:20 AM SECONDARY Sensorineural hearing loss, bilateral JASMINA NEWELL [place] [facility] [place] [facility] Plan of Treatment: Future Appointments (+ 6 months) and Future Tests (+/- 45 days) The Plan of Treatment section includes future care activities for the patient from all [place] treatmentfaunc health nashities. This section includes future appointments and future orders which are active, pending or scheduled. Future Appointments This section includes appointments that were scheduled to occur 6 months from the date of the Encounter, up to a maximum of 20 appointments. The data comes from all [place] treatment facilities. Appointment Date/Time Appointment Type Appointme nt Facility Name Apr 05, 2023 11:00 AM [facility] [place] [facility] Apr 06, 2023 12:00 PM [facility]IC[facility] [place] [facility] Apr 24, 2023 11:30 AM [facility]IC[facility] [place] [facility] Apr 24, 2023 12:30 PM [facility]IC[facility] [place] [facility] Apr 26, 2023 10:00 AM [facility] [place] [facility] Apr 26, 2023 11:00 AM [facility] [place] [facility] May 09, 2023 11:00 AM [facility] [place] [facility] May 12, 2023 10:00 AM [facility] [place] [facility] May 15, 2023 11:20 AM [facility]IC[facility] [place] [facility] May 29, 2023 11:00 AM [facility] [place] [facility] Jul 05, 2023 03:00 PM [facility]UL[facility]ICINE [facility] [place] [facility] Jul 06, 2023 10:30 AM [facility]ULAT[facility]ICINE [facility] [place] [facility] August 02, 2023 02:30 PM AMBULATORY - MEDICINE [facility] [place] [facility] August 08, 2023 02:00 PM AM[facility]ULATORY [facility] MEDICINE [facility] [place] [facility] Aug 23, 2023 10:30 AM AMBULATORY - REHAB MEDICIN E [facility] [place] [facility] Sep 01, 2023 11:30 AM [facility]ICINE [facility] [place] [facility] Sep 11, 2023 02:30 PM AMBULATORY [facility] MEDICINE [facility] [place] [facility] Sep 15, 2023 10:30 AM AMBULATORY - [place]ICINE [place] [facility] [place] [facility] Lab Results: +/- 30 days of the encounter This section includes the Chemistry and Hematology Lab Results on record with [place] for the patient. Radiology Reports and Pathology Reports are provided separately, in subsequent sections. Lab Results This section contains the Chemistry/Hematology Results that were resulted 30 days before or 30 daysafter the date of the Encounter. Date/Time Source Result Type Result - Unit Interpretation Reference Range Comment Apr 26, 2023 11:12 AM [place] [facility] [place] [facility] PO4 Specimen Type: SERUM No comment entered. Ordering Provider: ALYCIA STEVENS Report Released Date/Time: Nov 01, 2022 09:00 PM Reporting Lab: [place] [facility] [place] [facility] [address] [facility] [address] Performing Lab: [place] [facility] [place] [facility] [address] [facility] [address] PO4 2.5 mg/dL 2.5-5.0 Apr 26, 2023 11:12 AM [facility] [place] [facility] PTH INTACT Specimen Type: SERUM No comment entered. Ordering Provider: ALYCIA STEVENS Report Released Date/Time: Nov 01, 2022 09:00 PM Reporting Lab: [place] [facility] [place] [facility] [address] [facility] [address] Performing Lab: [place] [facility] [place] [facility] [address] [facility] [facility] [address] PTH INTACT 118.5 pg/mL H 10-65 Apr 26, 2023 11:12 AM [facility] URIC ACID Specimen Type: SERUM No comment entered. Ordering Provider: ALYCIA STEVENS Report Released Date/Time: Nov 01, 2022 09:00 PM Reporting Lab: [facility] [address] [facility] [address] Performing Lab: [facility] [address] [facility] [facility] [address] URIC ACID 3.1 mg/dL L 3.5-7.2 Apr 26, 2023 11:12 AM [facility] FERRITIN Specimen Type: SERUM No comment entered. Ordering Provider: ALYCIA STEVENS Report Released Date/Time: Nov 01, 2022 09:00 PM Reporting Lab: [facility] [address] [facility] [address] Performing Lab: [address] [address] FERRITIN 40 ng/mL 20-300 Apr 26, 2023 11:12 AM [facility] ALKALINE PHOSPHATASE Specimen Type: SERUM No comment entered. Ordering Provider: ALYCIA STEVENS Report Released Date/Time: Nov 01, 2022 09:00 PM Reporting Lab: [facility] [address] [facility] [address] Performing Lab: [address] [address] ALKALINE PHOSPHATASE 78 U/L 40-150 Apr 26, 2023 11:12 AM [facility] MAGNESIUM Specimen Type: SERUM No comment entered. Ordering Provider: ALYCIA STEVENS Report Released Date/Time: Nov 01, 2022 09:00 PM Reporting Lab: [facility] [address] [facility] [address] Performing Lab: [facility] [address] MAGNESIUM 2.0 mg/dL 1.6-2.6 Apr 26, 2023 11:12 AM [facility] CBC Specimen Type: BLOOD No comment entered. Ordering Provider: ALYCIA STEVENS A Report Released Date/Time: Nov 01, 2022 09:00 PM Reporting Lab: [facility] [address] [facility] [address] Performing Lab: [address] [address] WBC 8.31 10*3/uL 4.50-11.00 RBC 4.42 10*6/uL 4.23-5.66 HGB 13.2 g/dL 12.8-17 HCT 41.3 39.2-50.4 MCV 93.4 fL 82-99 MCHC 32.0 g/dL 30.8-35.1 PLT 196 10*3/uL 140-360 RDW-CV 14.3 12.0-16.0 MCH 29.9 pg 26.2-32.6 Apr 26, 2023 11:12 AM [facility] IRON & TIBC PANEL Specimen Type: SERUM No comment entered. Ordering Provider: ALYCIA STEVENS A Report Released Date/Time: Nov 01, 2022 09:00 PM Reporting Lab: [address] [address] Performing Lab: [address] [address] TIBC 341 ug/dL 204-475 IRON 69 ug/dL 40-160 Transferrin Saturation 20.3 20.0-50.0 Apr 26, 2023 11:12 AM [facility] VITAMIN D (25-[place]) Specimen Type: SERUM No comment entered. Ordering Provider: ALYCIA STEVENS A Report Released Date/Time: Nov 01, 2022 09:00 PM Reporting Lab: [address] [address] Performing Lab: [address] [address] VITAMIN D (25-[place]) 36 ng/mL 20-50 Apr 26, 2023 11:12 AM [facility] CALCIUM Specimen Type: SERUM No comment entered. Ordering Provider: ALYCIA STEVENS Report Released Date/Time: Nov 01, 2022 09:00 PM Reporting Lab: [facility] [address] [facility] [address] Performing Lab: [facility] [address] [facility] [address] CALCIUM 9.4 mg/dL 8.5-10.2 Apr 26, 2023 11:12 AM [facility] CHOLESTEROL Specimen Type: SERUM No comment entered. Ordering Provider: ALYCIA STEVENS Report Released Date/Time: Nov 01, 2022 09:00 PM Reporting Lab: [facility] [address] [facility] [address] Performing Lab: [address] [address] CHOLESTEROL 131 mg/dL Apr 26, 2023 11:12 AM [facility] HDL CHOLESTEROL Specimen Type: SERUM No comment entered. Ordering Provider: ALYCIA STEVENS Report Released Date/Time: Nov 01, 2022 09:00 PM Reporting Lab: [address] [address] Performing Lab: [facility] [address] [address] HDL CHOLESTEROL 49 mg/dL 40-60 Apr 26, 2023 11:12 AM [facility] MICROALBUMIN CREATININE RATIO PANEL Specimen Type: URINE No comment entered. Ordering Provider: ALYCIA STEVENS Report Released Date/Time: Nov 01, 2022 09:00 PM Reporting Lab: [facility] [address] [address] Performing Lab: [facility] [address] [address] MICROALBUMIN/C REATININE RATIO 129.2 mg/g H 0-29.9 MICROALBUMIN,Q UANTITATIVE 12.5 mg/dL RR UNAVAIL CREATININE URINE 96.73 mg/dL Apr 26, 2023 11:12 AM [facility] BASIC METABOLIC PANEL (non-fasting) Specimen Type: SERUM No comment entered. Ordering Provider: ALYCIA STEVENS Report Released Date/Time: Nov 01, 2022 09:00 PM Reporting Lab: [facility] [address] [facility] [address] Performing Lab: [address] [address] UREA NITROGEN 23 mg/dL 7-25 GLUCOSE 136 mg/dL H 65-100 SODIUM 140 mmol/L 135-145 POTASSIUM 4.7 mmol/L 3.5-5.0 CHLORIDE 109 mmol/L 100-110 CO2 25 meq/L 20-30 CREATININE, Serum 2.01 mg/dL H 0.50-1.40 eGFR(CKD-EPI 2020) 32 mL/min L >60 Apr 06, 2023 11:39 AM [facility] LIPID PANEL FASTING Specimen Type: SERUM No comment entered. Ordering Provider: SOFI MANCERA Report Released Date/Time: Apr 05, 2023 04:18 PM Reporting Lab: [address] [address] Performing Lab: [address] [address] CHOLESTEROL 142 mg/dL TRIGLYCERIDE 118 mg/dL 0-150 LDL calculated 65 mg/dL 0-129 CHOL/HDL 2.7 HDL CHOLESTEROL 53 mg/dL 40-60 Apr 06, 2023 11:39 AM [facility] TSH Specimen Type: SERUM No comment entered. Ordering Provider: SOFI MANCERA Report Released Date/Time: Apr 05, 2023 04:18 PM Reporting Lab: [address] [address] Performing Lab: [address] [address] TSH 1.33 u[IU]/mL 0.35-5.00 Apr 06, 2023 11:39 AM [facility] LIVER FUNCTION Specimen Type: SERUM No comment entered. Ordering Provider: SOFI MANCERA Report Released Date/Time: Apr 05, 2023 04:18 PM Reporting Lab: [facility] [address] [facility] [address] Performing Lab: [facility] [address] [facility] [address] PROTEIN,TOTAL 6.3 g/dL 6.0-8.3 ALBUMIN 3.6 g/dL 3.5-5.0 ALKALINE PHOSPHATASE 70 U/L 40-150 AST 14 U/L 5-34 ALT 10 U/L BILIRUBIN, TOTAL 0.5 mg/dL 0.2-1.2 Apr 06, 2023 11:39 AM [facility] HEMOGLOBIN A1C PANEL Specimen Type: BLOOD [...] Apr 05, 2023 04:18 PM Reporting Lab: [address] [address] Performing Lab: [address] [address] HEMOGLOBIN A1C 6.4 H 4.0-5.6 Apr 06, 2023 11:39 AM [facility] MICROALBUMIN CREATININE RATIO PANEL Specimen Type: URINE No comment entered. Ordering Provider: SOFI MANCERA Report Released Date/Time: Apr 05, 2023 04:18 PM Reporting Lab: [facility] [address] [facility] [address] Performing Lab: [address] [address] MICROALBUMIN/C REATININE RATIO 130.6 mg/g H 0-29.9 MICROALBUMIN,Q UANTITATIVE 12.8 mg/dL RR UNAVAIL CREATININE URINE 97.99 mg/dL Apr 06, 2023 11:39 AM [facility] URIC ACID Specimen Type: SERUM No comment entered. Ordering Provider: SOFI MANCERA Report Released Date/Time: Apr 05, 2023 04:19 PM Reporting Lab: [address] [address] Performing Lab: [address] [address] URIC ACID 2.9 mg/dL L 3.5-7.2 Apr 06, 2023 11:39 AM [facility] URINALYSIS CLEAN CATCH Specimen Type: URINE Comment: If Glucose = >500 and Ketones are positive, please alert the Physician. Ordering Provider: SOFI MANCERA Report Released Date/Time: Apr 05, 2023 04:18 PM Reporting Lab: [address] [address] Performing Lab: [address] [address] UA COLOR Light-Yellow Yellow UA APPEARANCE Clear Clear UA GLUCOSE NEGATIVE mg/dL Negative UA KETONES NEGATIVE mg/dL Negative UA BLOOD NEGATIVE mg/dL Negative UA PROTEIN 20 mg/dL Negative UA NITRITE NEGATIVE mg/dL Negative UA BILIRUBIN NEGATIVE mg/dL Negative UA SPECIFIC GRAVITY 1.017 1.016-1.02 2 UA pH 6.0 5.0-9.0 UA UROBILINOGEN <2.0 mg/dL <2.0 UA LEUKOCYTE NEGATIVE Negative Apr 06, 2023 11:39 AM [facility] BASIC METABOLIC PANEL (fasting) Specimen Type: SERUM No comment entered. Ordering Provider: SOFI MANCERA Report Released Date/Time: Apr 05, 2023 04:18 PM Reporting Lab: [address] [address] Performing Lab: [address] [address] UREA NITROGEN 23 mg/dL 7-25 GLUCOSE 163 mg/dL H 65-100 SODIUM 140 mmol/L 135-145 POTASSIUM 4.7 mmol/L 3.5-5.0 CHLORIDE 108 mmol/L 100-110 CO2 23 meq/L 20-30 CREATININE, Serum 1.90 mg/dL H 0.50-1.40 eGFR(CKD-EPI 2020) 34 mL/min L >60 Apr 06, 2023 11:39 AM [facility] CBC AND DIFF (AUTO) Specimen Type: BLOOD No comment entered. Ordering Provider: SOFI MANCERA Report Released Date/Time: Apr 05, 2023 04:18 PM Reporting Lab: [facility] [address] [facility] [address] Performing Lab: [facility] [address] [facility] [address] WBC 7.36 10*3/uL 4.50-11.00 RBC 4.36 10*6/uL 4.23-5.66 HGB 13.0 g/dL 12.8-17 HCT 40.9 39.2-50.4 MCV 93.8 fL 82-99 MCHC 31.8 g/dL 30.8-35.1 PLT 188 10*3/uL 140-360 RDW-CV 13.6 12.0-16.0 [place], Abs 0.63 10*3/uL 0.30-1.10 MCH 29.8 pg 26.2-32.6 Neut % 66.9 43.7-75.8 Lymph % 19.2 14.0-42.3 [place] % 8.6 5.1-13.7 Eos % 4.6 0.4-6.8 Baso % 0.4 0.1-2.0 Neut, Abs 4.93 10*3/uL 2.20-7.60 Lymph, Abs 1.41 10*3/uL 1.00-3.20 Eos, Abs 0.34 10*3/uL 0.03-0.44 Baso, Abs 0.03 10*3/uL 0.01-0.13 Immature Gran % 0.3 0.0-0.7 Immature Gran, Abs 0.02 10*3/uL 0.00-0.06 Mar 23, 2023 02:03 PM [facility] HDL CHOLESTEROL Specimen Type: SERUM No comment entered. Ordering Provider: ALYCIA STEVENS Report Released Date/Time: Mar 14, 2023 10:53 AM Reporting Lab: [facility] [place] [facility] [address] [facility] [address] Performing Lab: [place] [facility] [place] [facility] [address] [facility] [address] HDL CHOLESTEROL 49 mg/dL 40-60 Mar 23, 2023 02:03 PM [facility]RL TRN [facility] MICROALBUMIN CREATININE RATIO PANEL Specimen Type: URINE No comment entered. Ordering Provider: ALYCIA STEVENS Report Released Date/Time: Mar 14, 2023 10:53 AM Reporting Lab: [facility] [place] [place] [facility] [address] [facility] [address] Performing Lab: [facility]OSPITALRBROOKWO[facility]ENTERN [facility]ITALUSETS [facility] [address] [facility] [address] MICROALBUMIN/C REATININE RATIO 138.3 mg/g H 0-29.9 MICROALBUMIN,Q UANTITATIVE 17.1 mg/dL RR UNAVAIL CREATININE URINE 123.64 mg/dL Mar 23, 2023 02:03 PM [facility] FERRITIN Specimen Type: SERUM No comment entered. Ordering Provider: ALYCIA STEVENS Report Released Date/Time: Mar 14, 2023 10:53 AM Reporting Lab: [facility]RL [facility]N [facility] [address] [facility] [address] Performing Lab: [facility]ITALRL TRN [facility] [address] [address] FERRITIN 34 ng/mL 20-300 Mar 23, 2023 02:03 PM [facility] CALCIUM Specimen Type: SERUM No comment entered. Ordering Provider: ALYCIA STEVENS Report Released Date/Time: Mar 14, 2023 10:53 AM Reporting Lab: [facility] [place] [place] [facility] [address] [facility] [address] Performing Lab: [facility]RL [facility]N [facility] [address] [facility] [address] CALCIUM 9.1 mg/dL 8.5-10.2 Mar 23, 2023 02:03 PM [facility] IRON & TIBC PANEL Specimen Type: SERUM No comment entered. Ordering Provider: ALYCIA STEVENS A Report Released Date/Time: Mar 14, 2023 10:53 AM Reporting Lab: [facility]RL [facility]N [facility] [address] [facility] [address] Performing Lab: [facility]RL TRN [facility] [address] [address] TIBC 347 ug/dL 204-475 IRON 65 ug/dL 40-160 Transferrin Saturation 18.7 L 20.0-50.0 Mar 23, 2023 02:03 PM [facility] VITAMIN D (25-[place]) Specimen Type: SERUM No comment entered. Ordering Provider: ALYCIA STEVENS Report Released Date/Time: Mar 14, 2023 10:53 AM Reporting Lab: [facility]N [facility] [address] [address] Performing Lab: [facility]OSPITALRBROOKWOOD BAPTIST MEDICAL CENTERN [facility]ITALUSETS [address] [address] VITAMIN D (25-[place]) 33 ng/mL 20-50 Mar 23, 2023 02:03 PM [facility]USE[facility] MAGNESIUM Specimen Type: SERUM No comment entered. Ordering Provider: ALYCIA STEVENS Report Released Date/Time: Mar 14, 2023 10:53 AM Reporting Lab: [facility]ITALRL TRN [facility] [address] [facility] [address] Performing Lab: [facility]PITALRBROOKWOOD BAPTIST MEDICAL CENTERN [facility]ITALUSETS [address] [address] MAGNESIUM 2.0 mg/dL 1.6-2.6 Mar 23, 2023 02:03 PM [facility]USE[facility] CHOLESTEROL Specimen Type: SERUM No comment entered. Ordering Provider: ALYCIA STEVENS Report Released Date/Time: Mar 14, 2023 10:53 AM Reporting Lab: [facility] HOSPITALRMOBILE INFIRMARY MEDICAL CENTERTRN [facility]ITALUSETS [address] [address] Performing Lab: [facility]ITALRL TRN [facility] [address] [address] CHOLESTEROL 138 mg/dL Mar 23, 2023 02:03 PM [facility]ITALRL [facility]ERN [facility]ITALUSETS [facility] PO4 Specimen Type: SERUM No comment entered. Ordering Provider: ALYCIA STEVENS Report Released Date/Time: Mar 14, 2023 10:53 AM Reporting Lab: [facility] HOSPITALRMOBILE INFIRMARY MEDICAL CENTERTRN [facility]ITALUSETS [facility] [address] [facility] [address] Performing Lab: [facility]ITALRL TRN [facility]ITAL[facility]ETS [facility] [address] [facility] [address] PO4 2.2 mg/dL L 2.5-5.0 Mar 23, 2023 02:03 PM [facility]USE[facility] PTH INTACT Specimen Type: SERUM No comment entered. Ordering Provider: ALYCIA STEVENS Report Released Date/Time: Mar 14, 2023 10:53 AM Reporting Lab: [facility]OSPITALRBROOKWOOD BAPTIST MEDICAL CENTERN [facility]ITALUSE[address] [address] Performing Lab: [facility]OSPITALRBROOKWOOD BAP[facility]IST MEDICAL CENTERN [facility]ITALUSE[address] [address] PTH INTACT 116.9 pg/mL H 10-65 Mar 23, 2023 02:03 PM [facility] URIC ACID Specimen Type: SERUM No comment entered. Ordering Provider: ALYCIA STEVENS Report Released Date/Time: Mar 14, 2023 10:53 AM Reporting Lab: [facility]OSPITALRBROOKWOOD BAPTIST MEDICAL CENTERN [facility]ITALUSE[address] [address] Performing Lab: [facility]PITALRBROOKWOOD BAPTIST MEDICAL CENTERN [facility]PITALUSETS [address] [address] URIC ACID 3.0 mg/dL L 3.5-7.2 Mar 23, 2023 02:03 PM [facility] ALKALINE PHOSPHATASE Specimen Type: SERUM No comment entered. Ordering Provider: ALYCIA STEVENS Report Released Date/Time: Mar 14, 2023 10:53 AM Reporting Lab: [facility]OSPITALRBROOKWOOD BAPTIST MEDICAL CENTERN [facility]ITALUSETS [address] [address] Performing Lab: [facility]OSPITALRBROOKWOOD BAPTIST MEDICAL CENTERN [facility]ITALUSETS [address] [address] ALKALINE PHOSPHATASE 74 U/L 40-150 Mar 23, 2023 02:03 PM [facility]ETS [facility] CBC Specimen Type: BLOOD No comment entered. Ordering Provider: ALYCIA STEVENS A Report Released Date/Time: Mar 14, 2023 10:53 AM Reporting Lab: [facility] [address] [facility] [address] Performing Lab: [address] [address] WBC 6.76 10*3/uL 4.50-11.00 RBC 4.44 10*6/uL 4.23-5.66 HGB 13.6 g/dL 12.8-17 HCT 41.6 39.2-50.4 MCV 93.7 fL 82-99 MCHC 32.7 g/dL 30.8-35.1 PLT 188 10*3/uL 140-360 RDW-CV 13.6 12.0-16.0 MCH 30.6 pg 26.2-32.6 Mar 23, 2023 02:03 PM [facility] BASIC METABOLIC PANEL (non-fasting) Specimen Type: SERUM No comment entered. Ordering Provider: ALYCIA STEVENS Report Released Date/Time: Mar 14, 2023 10:53 AM Reporting Lab: [address] [id number] Performing Lab: [address] [id number] UREA NITROGEN 20 mg/dL 7-25 GLUCOSE 173 [...] and tobacco- related health factors from the [place] facility where the Encounter took place. Current Smoking Status This section includes the most current smoking, or tobacco-related health factor, from the [place] facility where the Encounter took place. Date/Time Current Smoking Status Comment María Elena armijo Mar 30, 2022 11:00 AM VA-TOBACCO FORMER USER [facility] Tobacco Use History This section includes a history of the smoking, or tobacco-related health factors, that were collected on or before the date of the Encounter. The data comes from the [place] facility where the Encounter took place. Date/Time Smoking Status/Tobacco Use Comment F acility Mar 30, 2022 11:00 AM VA-TOBACCO QUIT 15 YRS OR MORE [facility] Mar 17, 2021 01:30 PM VA-TOBACCO FORMER USER [facility] Mar 17, 2021 01:30 PM VA-TOBACCO NEVER USED [facility] Mar 17, 2021 01:30 PM VA-TOBACCO QUIT 15 YRS OR MORE [facility] Mar 31, 2020 10:30 AM VA-TOBACCO FORMER USER [facility] Mar 31, 2020 10:30 AM VA-TOBACCO QUIT 15 YRS OR MORE [facility] [place] [facility] Nov 23, 2018 12:07 PM VA-TOBACCO FORMER USER [facility] Nov 23, 2018 12:07 PM VA-TOBACCO QUIT 15 YRS OR MORE [facility] [place] Nov 22, 2017 10:02 AM VA-TOBACCO NEVER USED [facility] [place] [facility] Mar 14, 2017 09:31 AM LIFETIME NON-TOBACCO USER [facility] [place] Mar 01, 2016 02:51 PM LIFETIME NON-TOBACCO USER [facility] [place] [facility] Feb 10, 2015 09:31 AM QUIT TOBACCO USE > 7 YEARS AGO quit in 1964 [facility] [place] [facility] Encounter Notes: All associated encounter notes This section contains the clinical notes associated to the Encounter. Date/Time Encounter Note(s) [facility] Mar 29, 2023 10:13 AM AUDIOLOGY NOTE: LOCAL TITLE: AUDIOLOGY [facility] TITLE: AUDIOLOGY NOTE DATE OF NOTE: MAR 29, 2023@10:13 ENTRY DATE: MAR 29, 2023@10:14:01 AUTHOR: ANA NEWELL EXP COSIGNER: NAMAN YOUSSEF URGENCY: STATUS: COMPLETED [place] was seen on March 29, 2023 reporting his 2022 No Evolv AI ITC hearing aids are not working and he is unsure if it's the hearing aids or the drawing supervisor. [place] was wearing his back up hearing aids. Hearing aids were placed on the drawing supervisor the [place] brought in and both green lights came on flashing. Hearing aids were then cleaned and checked. Replaced wax guards and anya covers. Post biologic check was good for the left. The right aid was . Right aid will be sent to [facility] for repair and mailed directly to when done. asked to have a repair box sent to him to have his back up aids sent out due to broken battery doors. He will send out himself once he receives the repaired right aid. The repair box was ordered today. [place] will contact clinic as needed. /cas/ ANA NEWELL [employer] Traveling Sales Executive Signed: 03/29/2023 10:22 /cas/ YONNY NAIDU STAFF VOCATIONAL REHABILITATION TEACHER Cosigned: 03/29/2023 11:28 ANA NEWELL [facility]
--- OUTSIDE RECORDS SUMMARY | 2024-03-20 13:56 | XMS_ITS ---
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 Date/Time Encounter Type Encounter Description Reason Provider Source Apr 06, 2023 12:00 PM OFFICE O/P EST LOW 20 MIN PODIATRY ICD-10-CM L60.0 Ingrowing nail RE V[place] Encounter Template Text not used by [place] Assessments - Encounter Diagnoses This section includes the primary and secondary diagnoses documented for the Encounter. Date/Time Primary/Secondary Diagnosis Diagnosis Name Provider Source Apr 17, 2023 10:55 AM PRIMARY Ingrowing darian [place] [facility] [place] [facility] Plan of Treatment: Future Appointments (+ 6 months) and Future Tests (+/- 45 days) The Plan of Treatment section includes future care activities for the patient from all [place] treatmentfacilities. This section includes future appointments and future orders which are active, pending or scheduled. Future Appointments This section includes appointments that were scheduled to occur 6 months from the date of the Encounter, up to a maximum of 20 appointments. The data comes from all [place] treatment facilities. Appointment Date/Time Appointment Type Appointme nt Facility Name Apr 24, 2023 11:30 AM [facility]UL[facility] [place]IC[place] [facility] [place] [facility] Apr 24, 2023 12:30 PM AM[facility]ULAT[facility]IC[facility] [place] [facility] Apr 26, 2023 10:00 AM [facility]ULAT[facility] [place] [facility]IC[facility] [place] [facility] [place] [facility] Apr 26, 2023 11:00 AM [facility]ICINE [facility] [place] [facility] May 09, 2023 11:00 AM AM[facility]ULATORY [place] [facility]ICINE [place] [facility] [place] [facility] May 12, 2023 10:00 AM [facility]ULAT[facility]ICINE [facility] [place] [facility] May 15, 2023 11:20 AM AM[facility]ULAT[facility] [place] [facility]ICINE [facility] [facility] May 29, 2023 11:00 AM AM[facility]ULATORY [facility]ICINE [facility] [facility] Jul 05, 2023 03:00 PM AMBULATORY - MEDICINE [facility] [facility] Jul 06, 2023 10:30 AM AM[facility]ULATORY [facility] MEDICINE [facility] [facility] August 02, 2023 02:30 PM AMBULATORY - MEDICINE [facility] [facility] August 08, 2023 02:00 PM AMBULATORY - MEDICINE [facility] [place] [facility] Aug 23, 2023 10:30 AM AMBULATORY - REHAB MEDICIN E [facility] [place] [facility] Sep 01, 2023 11:30 AM AMBULATORY [facility] MEDICINE [facility] [place] [facility] Sep 11, 2023 02:30 PM [facility] [place] [facility] Sep 15, 2023 10:30 AM [place] [facility] [place] [facility] Oct 02, 2023 09:30 AM [place] [facility] [facility] Oct 04, 2023 10:00 AM [place] [facility] [place] [facility] Lab Results: +/- 30 days of the encounter This section includes the Chemistry and Hematology Lab Results on record with [place] for the patient. Radiology Reports and Pathology Reports are provided separately, in subsequent sections. Lab Results This section contains the Chemistry/Hematology Results that were resulted 30 days before or 30 daysafter the date of the Encounter. Date/Time Source Result Type Result - Unit Interpretation Reference Range Comment Apr 26, 2023 11:12 AM [place] [facility] [place] [facility] PO4 Specimen Type: SERUM No comment entered. Ordering Provider: ALYCIA STEVENS Report Released Date/Time: Nov 01, 2022 09:00 PM Reporting Lab: [place] [facility] [place] [facility] [address] [facility] [address] Performing Lab: [place] [facility] [place] [facility] [address] [facility] [address] PO4 2.5 mg/dL 2.5-5.0 Apr 26, 2023 11:12 AM [place] [facility] [place] [facility] PTH INTACT Specimen Type: SERUM No comment entered. Ordering Provider: ALYCIA STEVENS Report Released Date/Time: Nov 01, 2022 09:00 PM Reporting Lab: [place] [facility] [place] [facility] [address] [facility] [address] Performing Lab: [place] [facility] [place] [facility] [address] [facility] [address] PTH INTACT 118.5 pg/mL H 10-65 Apr 26, 2023 11:12 AM [place] [facility] [place] [facility] URIC ACID Specimen Type: SERUM No comment entered. Ordering Provider: ALYCIA STEVENS Report Released Date/Time: Nov 01, 2022 09:00 PM Reporting Lab: [place] [facility] [place] [facility] [address] [facility] [address] Performing Lab: [place] [facility] [place] [facility] [address] [facility] [address] URIC ACID 3.1 mg/dL L 3.5-7.2 Apr 26, 2023 11:12 AM [facility] FERRITIN Specimen Type: SERUM No comment entered. Ordering Provider: ALYCIA STEVENS Report Released Date/Time: Nov 01, 2022 09:00 PM Reporting Lab: [facility] [place] [facility] [address] [facility] [address] Performing Lab: [facility]OSPITALRDECATUR [facility]USN [facility]ILDRENUSETS [facility] [address] [facility] [address] FERRITIN 40 ng/mL 20-300 Apr 26, 2023 11:12 AM [facility] ALKALINE PHOSPHATASE Specimen Type: SERUM No comment entered. Ordering Provider: ALYCIA STEVENS Report Released Date/Time: Nov 01, 2022 09:00 PM Reporting Lab: [facility] [place] [facility] [address] [facility] [address] Performing Lab: [facility]ITALRL TRN [facility]ENUS[facility] [address] [facility] [address] ALKALINE PHOSPHATASE 78 U/L 40-150 Apr 26, 2023 11:12 AM [facility]ENUSE[facility] MAGNESIUM Specimen Type: SERUM No comment entered. Ordering Provider: ALYCIA STEVENS Report Released Date/Time: Nov 01, 2022 09:00 PM Reporting Lab: [facility] [place] [facility] [address] [facility] [address] Performing Lab: [facility]PITALRNOLAND [facility]PITAL DOTHANTRN [facility] CHILDRENUSETS [address] [address] MAGNESIUM 2.0 mg/dL 1.6-2.6 Apr 26, 2023 11:12 AM [facility]ITALRL [facility]N [facility]ILDRENUSETS [facility] IRON & TIBC PANEL Specimen Type: SERUM No comment entered. Ordering Provider: ALYCIA STEVENS Report Released Date/Time: Nov 01, 2022 09:00 PM Reporting Lab: [facility]OSPITALRDECATUR [facility] CAMPUSN [facility]ENUSEGRACIE [facility] [address] [facility] [address] Performing Lab: [facility]PITALRDECATUR [facility]USN [facility]ILDRENUSETS [facility] [address] [facility] [address] TIBC 341 ug/dL 204-475 IRON 69 ug/dL 40-160 Transferrin Saturation 20.3 20.0-50.0 Apr 26, 2023 11:12 AM [facility] CBC Specimen Type: BLOOD No comment entered. Ordering Provider: ALYCIA STEVENS A Report Released Date/Time: Nov 01, 2022 09:00 PM Reporting Lab: [facility]N [facility]ILDRENUSETS [facility] [address] [facility] [address] Performing Lab: [facility]N [facility] CHILDRENUSE[address] [address] WBC 8.31 10*3/uL 4.50-11.00 RBC 4.42 10*6/uL 4.23-5.66 HGB 13.2 g/dL 12.8-17 HCT 41.3 39.2-50.4 MCV 93.4 fL 82-99 MCHC 32.0 g/dL 30.8-35.1 PLT 196 10*3/uL 140-360 RDW-CV 14.3 12.0-16.0 MCH 29.9 pg 26.2-32.6 Apr 26, 2023 11:12 AM [facility] VITAMIN D (25-[place]) Specimen Type: SERUM No comment entered. Ordering Provider: ALYCIA STEVENS A Report Released Date/Time: Nov 01, 2022 09:00 PM Reporting Lab: [facility] CHILDRENUSETS [address] [address] Performing Lab: [facility]N [facility] CHILDRENUSE[address] [address] VITAMIN D (25-[place]) 36 ng/mL 20-50 Apr 26, 2023 11:12 AM [facility] CALCIUM Specimen Type: SERUM No comment entered. Ordering Provider: ALYCIA STEVENS A Report Released Date/Time: Nov 01, 2022 09:00 PM Reporting Lab: [facility]ITALUSE[address] [address] Performing Lab: [facility] [place] [facility] [address] [facility] [address] CALCIUM 9.4 mg/dL 8.5-10.2 Apr 26, 2023 11:12 AM [facility] CHOLESTEROL Specimen Type: SERUM No comment entered. Ordering Provider: ALYCIA STEVENS Report Released Date/Time: Nov 01, 2022 09:00 PM Reporting Lab: [facility]OSPITALRDECATUR [facility] CAMPUSN [facility]ILDRENUSETS [facility] [address] [facility] [address] Performing Lab: [facility]N [facility]ILDRENUSE[address] [address] CHOLESTEROL 131 mg/dL Apr 26, 2023 11:12 AM [facility] HDL CHOLESTEROL Specimen Type: SERUM No comment entered. Ordering Provider: ALYCIA STEVENS Report Released Date/Time: Nov 01, 2022 09:00 PM Reporting Lab: [facility]N [facility]ILDRENUSETS [address] [address] Performing Lab: [facility]PITALRDECATUR [facility] C[facility]USN [facility]ILDRENUSETS [address] [address] HDL CHOLESTEROL 49 mg/dL 40-60 Apr 26, 2023 11:12 AM [facility] MICROALBUMIN CREATININE RATIO PANEL Specimen Type: URINE No comment entered. Ordering Provider: ALYCIA STEVENS Report Released Date/Time: Nov 01, 2022 09:00 PM Reporting Lab: [facility] [place] [address] [address] Performing Lab: [facility]PITALRNOLAND [facility] DOTHANTRN [facility] CHILDRENUSETS [address] [address] MICROALBUMIN/C REATININE RATIO 129.2 mg/g H 0-29.9 MICROALBUMIN,Q UANTITATIVE 12.5 mg/dL RR UNAVAIL CREATININE URINE 96.73 mg/dL Apr 26, 2023 11:12 AM [facility] BASIC METABOLIC PANEL (non-fasting) Specimen Type: SERUM No comment entered. Ordering Provider: ALYCIA STEVENS Report Released Date/Time: Nov 01, 2022 09:00 PM Reporting Lab: [address] [address] Performing Lab: [address] [address] UREA NITROGEN 23 mg/dL 7-25 GLUCOSE 136 mg/dL H 65-100 SODIUM 140 mmol/L 135-145 POTASSIUM 4.7 mmol/L 3.5-5.0 CHLORIDE 109 mmol/L 100-110 CO2 25 meq/L 20-30 CREATININE, Serum 2.01 mg/dL H 0.50-1.40 eGFR(CKD-EPI 2020) 32 mL/min L >60 Apr 06, 2023 11:39 AM [facility] LIVER FUNCTION Specimen Type: SERUM No comment entered. Ordering Provider: SOFI MANCERA Report Released Date/Time: Apr 05, 2023 04:18 PM Reporting Lab: [address] [address] Performing Lab: [address] [address] PROTEIN,TOTAL 6.3 g/dL 6.0-8.3 ALBUMIN 3.6 g/dL 3.5-5.0 ALKALINE PHOSPHATASE 70 U/L 40-150 AST 14 U/L 5-34 ALT 10 U/L BILIRUBIN, TOTAL 0.5 mg/dL 0.2-1.2 Apr 06, 2023 11:39 AM [facility] TSH Specimen Type: SERUM No comment entered. Ordering Provider: SOFI MANCERA Report Released Date/Time: Apr 05, 2023 04:18 PM Reporting Lab: [address] [address] Performing Lab: [address] [address] TSH 1.33 u[IU]/mL 0.35-5.00 Apr 06, 2023 11:39 AM [facility] LIPID PANEL FASTING Specimen Type: SERUM No comment entered. Ordering Provider: SOFI MANCERA Report Released Date/Time: Apr 05, 2023 04:18 PM Reporting Lab: [facility]N [facility] CHILDRENUSETS [facility] [address] [facility] [address] Performing Lab: [facility]N [facility]ILDRENUSEGRACIE [facility]QU[facility] [address] [facility] [address] CHOLESTEROL 142 mg/dL TRIGLYCERIDE 118 mg/dL 0-150 LDL calculated 65 mg/dL 0-129 CHOL/HDL 2.7 HDL CHOLESTEROL 53 mg/dL 40-60 Apr 06, 2023 11:39 AM [facility] HEMOGLOBIN A1C PANEL Specimen Type: BLOOD Comment: [...] Apr 05, 2023 04:18 PM Reporting Lab: [facility]ITALUSE[address] [address] Performing Lab: [facility]ITALUSE[address] [address] HEMOGLOBIN A1C 6.4 H 4.0-5.6 Apr 06, 2023 11:39 AM [facility] MICROALBUMIN CREATININE RATIO PANEL Specimen Type: URINE No comment entered. Ordering Provider: SOFI MANCERA Report Released Date/Time: Apr 05, 2023 04:18 PM Reporting Lab: [facility]ITALUSE[address] [address] Performing Lab: [facility]N [facility] CHILDRENUSE[address] [address] MICROALBUMIN/C REATININE RATIO 130.6 mg/g H 0-29.9 MICROALBUMIN,Q UANTITATIVE 12.8 mg/dL RR UNAVAIL CREATININE URINE 97.99 mg/dL Apr 06, 2023 11:39 AM [facility] URIC ACID Specimen Type: SERUM No comment entered. Ordering Provider: SOFI MANCERA Report Released Date/Time: Apr 05, 2023 04:19 PM Reporting Lab: [facility] [address] [facility] [address] Performing Lab: [facility] [address] [facility] [address] URIC ACID 2.9 mg/dL L 3.5-7.2 Apr 06, 2023 11:39 AM [facility] URINALYSIS CLEAN CATCH Specimen Type: URINE Comment: If Glucose = >500 and Ketones are positive, please alert the Physician. Ordering Provider: SOFI MANCERA Report Released Date/Time: Apr 05, 2023 04:18 PM Reporting Lab: [address] [address] Performing Lab: [address] [address] UA COLOR Light-Yellow Yellow UA APPEARANCE Clear Clear UA GLUCOSE NEGATIVE mg/dL Negative UA KETONES NEGATIVE mg/dL Negative UA BLOOD NEGATIVE mg/dL Negative UA PROTEIN 20 mg/dL Negative UA NITRITE NEGATIVE mg/dL Negative UA BILIRUBIN NEGATIVE mg/dL Negative UA SPECIFIC GRAVITY 1.017 1.016-1.02 2 UA pH 6.0 5.0-9.0 UA UROBILINOGEN <2.0 mg/dL <2.0 UA LEUKOCYTE NEGATIVE Negative Apr 06, 2023 11:39 AM [facility] BASIC METABOLIC PANEL (fasting) Specimen Type: SERUM No comment entered. Ordering Provider: SOFI MANCERA Report Released Date/Time: Apr 05, 2023 04:18 PM Reporting Lab: [address] [address] Performing Lab: [address] [address] UREA NITROGEN 23 mg/dL 7-25 GLUCOSE 163 mg/dL H 65-100 SODIUM 140 mmol/L 135-145 POTASSIUM 4.7 mmol/L 3.5-5.0 CHLORIDE 108 mmol/L 100-110 CO2 23 meq/L 20-30 CREATININE, Serum 1.90 mg/dL H 0.50-1.40 eGFR(CKD-EPI 2020) 34 mL/min L >60 Apr 06, 2023 11:39 AM [facility] CBC AND DIFF (AUTO) Specimen Type: BLOOD No comment entered. Ordering Provider: SOFI MANCERA Report Released Date/Time: Apr 05, 2023 04:18 PM Reporting Lab: [address] [address] Performing Lab: [address] [address] WBC 7.36 10*3/uL 4.50-11.00 RBC 4.36 10*6/uL 4.23-5.66 HGB 13.0 g/dL 12.8-17 HCT 40.9 39.2-50.4 MCV 93.8 fL 82-99 MCHC 31.8 g/dL 30.8-35.1 PLT 188 10*3/uL 140-360 RDW-CV 13.6 12.0-16.0 Custer, Abs 0.63 10*3/uL 0.30-1.10 MCH 29.8 pg 26.2-32.6 Neut % 66.9 43.7-75.8 Lymph % 19.2 14.0-42.3 Custer % 8.6 5.1-13.7 Eos % 4.6 0.4-6.8 Baso % 0.4 0.1-2.0 Neut, Abs 4.93 10*3/uL 2.20-7.60 Lymph, Abs 1.41 10*3/uL 1.00-3.20 Eos, Abs 0.34 10*3/uL 0.03-0.44 Baso, Abs 0.03 10*3/uL 0.01-0.13 Immature Gran % 0.3 0.0-0.7 Immature Gran, Abs 0.02 10*3/uL 0.00-0.06 Mar 23, 2023 02:03 PM [facility] HDL CHOLESTEROL Specimen Type: SERUM No comment entered. Ordering Provider: ALYCIA STEVENS Report Released Date/Time: Mar 14, 2023 10:53 AM Reporting Lab: [address] [address] Performing Lab: [address] [address] HDL CHOLESTEROL 49 mg/dL 40-60 Mar 23, 2023 02:03 PM [facility]ENUS[facility] MICROALBUMIN CREATININE RATIO PANEL Specimen Type: URINE No comment entered. Ordering Provider: ALYCIA STEVENS Report Released Date/Time: Mar 14, 2023 10:53 AM Reporting Lab: [facility]PITALRNOLAND [facility] DOTHANTRN [facility]ILDRENUSETS [facility] [address] [facility] [address] Performing Lab: [facility]ITALRNOLAND [facility] DOTHANTRN [facility] CHILDRENUSETS [address] [address] MICROALBUMIN/C REATININE RATIO 138.3 mg/g H 0-29.9 MICROALBUMIN,Q UANTITATIVE 17.1 mg/dL RR UNAVAIL CREATININE URINE 123.64 mg/dL Mar 23, 2023 02:03 PM [facility] FERRITIN Specimen Type: SERUM No comment entered. Ordering Provider: ALYCIA STEVENS Report Released Date/Time: Mar 14, 2023 10:53 AM Reporting Lab: [facility]PITALRL [facility]N [place] [address] [address] Performing Lab: [facility] HOSPITALRDECATUR [facility] CAMPUSN [facility] CHILDRENUSETS [address] [address] FERRITIN 34 ng/mL 20-300 Mar 23, 2023 02:03 PM [facility] MAGNESIUM Specimen Type: SERUM No comment entered. Ordering Provider: ALYCIA STEVENS Report Released Date/Time: Mar 14, 2023 10:53 AM Reporting Lab: [facility]ITALRL [facility] [place] [address] [address] Performing Lab: [facility]PITALRL TRN [facility]DRENUS[facility] [address] [address] MAGNESIUM 2.0 mg/dL 1.6-2.6 Mar 23, 2023 02:03 PM [facility]N [facility]IL[facility]ENUSEGRAC[facility] IRON & TIBC PANEL Specimen Type: SERUM No comment entered. Ordering Provider: ALYCIA STEVENS Report Released Date/Time: Mar 14, 2023 10:53 AM Reporting Lab: [facility]PITALRDECATUR [facility] CAMPUSN [facility] CHILDRENUSETS [address] [address] Performing Lab: [facility]ITALRNOLAND [facility] DOTHANTRN [place] [facility] [address] [facility] [address] TIBC 347 ug/dL 204-475 IRON 65 ug/dL 40-160 Transferrin Saturation 18.7 L 20.0-50.0 Mar 23, 2023 02:03 PM [facility]N [facility]IL[facility]ENUSEGRAC[facility] VITAMIN D (25-[place]) Specimen Type: SERUM No comment entered. Ordering Provider: ALYCIA STEVENS Report Released Date/Time: Mar 14, 2023 10:53 AM Reporting Lab: [facility]OSPITALRDECATUR [facility] CAMPUSN [facility] CHILDRENUSETS [facility] [address] [facility] [address] Performing Lab: [facility]N [facility] CHILDRENUSE[address] [address] VITAMIN D (25-OH) 33 ng/mL 20-50 Mar 23, 2023 02:03 PM [facility]N [facility]ENUSEGRAC[facility] CALCIUM Specimen Type: SERUM No comment entered. Ordering Provider: ALYCIA STEVENS Report Released Date/Time: Mar 14, 2023 10:53 AM Reporting Lab: [facility]PITALRDECATUR [facility] CAMPUSN [facility] CHILDRENUSETS [address] [address] Performing Lab: [facility]N [facility]ILDRENUSETS [address] [address] CALCIUM 9.1 mg/dL 8.5-10.2 Mar 23, 2023 02:03 PM [facility]USEGR[facility] CHOLESTEROL Specimen Type: SERUM No comment entered. Ordering Provider: ALYCIA STEVENS Report Released Date/Time: Mar 14, 2023 10:53 AM Reporting Lab: [facility]PITALRDECATUR [facility] CAMPUSN [facility] CHILDRENUSETS [address] [address] Performing Lab: [facility]PITALRDECATUR [facility] CAMPUSN [facility] CHILDRENUSETS [address] [address] CHOLESTEROL 138 mg/dL Mar 23, 2023 02:03 PM [facility]N [facility]ENUSEGRAC[facility] PTH INTACT Specimen Type: SERUM No comment entered. Ordering Provider: ALYCIA STEVENS Report Released Date/Time: Mar 14, 2023 10:53 AM Reporting Lab: [facility]PITALRDECATUR [facility] CAMPUSN [facility] CHILDRENUSETS [address] [address] Performing Lab: [facility] [place] [facility] [address] [facility] [address] PTH INTACT 116.9 pg/mL H 10-65 Mar 23, 2023 02:03 PM [facility] [place] [facility] ALKALINE PHOSPHATASE Specimen Type: SERUM No comment entered. Ordering Provider: ALYCIA STEVENS Report Released Date/Time: Mar 14, 2023 10:53 AM Reporting Lab: [place] [facility] [facility] [address] [facility] [address] Performing Lab: [place] [facility] [facility] [address] [facility] [address] ALKALINE PHOSPHATASE 74 U/L 40-150 Mar 23, 2023 02:03 PM [facility] [place] [facility] PO4 Specimen Type: SERUM No comment entered. Ordering Provider: ALYCIA STEVENS Report Released Date/Time: Mar 14, 2023 10:53 AM Reporting Lab: [facility]ITALRL [facility] [place] [facility] [address] [facility] [address] Performing Lab: [place] [facility] [place] [facility] [address] [facility] [address] PO4 2.2 mg/dL L 2.5-5.0 Mar 23, 2023 02:03 PM [facility] URIC ACID Specimen Type: SERUM No comment entered. Ordering Provider: ALYCIA STEVENS Report Released Date/Time: Mar 14, 2023 10:53 AM Reporting [facility] [place] [facility] [address] [facility] [address] Performing Lab: [facility] [place] [facility] [address] [facility] [address] URIC ACID 3.0 mg/dL L 3.5-7.2 Mar 23, 2023 02:03 PM [facility] [place] [facility] CBC Specimen Type: BLOOD No comment entered. Ordering Provider: ALYCIA STEVENS Report Released Date/Time: Mar 14, 2023 10:53 AM Reporting [facility] [place] [facility] [address] [facility] [address] Performing Lab: [address] [address] WBC 6.76 10*3/uL 4.50-11.00 RBC 4.44 10*6/uL 4.23-5.66 HGB 13.6 g/dL 12.8-17 HCT 41.6 39.2-50.4 MCV 93.7 fL 82-99 MCHC 32.7 g/dL 30.8-35.1 PLT 188 10*3/uL 140-360 RDW-CV 13.6 12.0-16.0 MCH 30.6 pg 26.2-32.6 Mar 23, 2023 02:03 PM [facility] BASIC METABOLIC PANEL (non-fasting) Specimen Type: SERUM No comment entered. Ordering Provider: ALYCIA STEVENS Report Released Date/Time: Mar 14, 2023 10:53 AM Reporting Lab: [address] [address] Performing Lab: [address] [address] UREA NITROGEN 20 mg/dL 7-25 GLUCOSE 173 [...] and tobacco- related health factors from the [place] facility where the Encounter took place. Current Smoking Status This section includes the most current smoking, or tobacco-related health factor, from the [place] facility where the Encounter took place. Date/Time Current Smoking Status Comment María Elena armijo Mar 30, 2022 11:00 AM VA-TOBACCO FORMER USER [facility] Tobacco Use History This section includes a history of the smoking, or tobacco-related health factors, that were collected on or before the date of the Encounter. The data comes from the [place] facility where the Encounter took place. Date/Time Smoking Status/Tobacco Use Comment Gamaliel zieglerility Mar 30, 2022 11:00 AM VA-TOBACCO QUIT 15 YRS OR MORE [facility] [place] [facility] Mar 17, 2021 01:30 PM VA-TOBACCO FOR[facility]ER [facility] [place] [facility] Mar 17, 2021 01:30 PM VA-TOBACCO NEVER USED [facility] [facility] [place] [facility] Mar 17, 2021 01:30 PM VA-TOBACCO QUIT 15 YRS OR MORE [facility] [place] [facility] Mar 31, 2020 10:30 AM VA-TOBACCO FORMER USER [facility] [place] [facility] Mar 31, 2020 10:30 AM VA-TOBACCO QUIT 15 YRS OR MORE [facility] [place] [facility] Nov 23, 2018 12:07 PM VA-TOBACCO FORMER USER [facility] [place] [facility] Nov 23, 2018 12:07 PM VA-TOBACCO QUIT 15 YRS OR MORE [facility] [place] [facility] Nov 22, 2017 10:02 AM VA-TOBACCO NEVER USED [facility] [place] [facility] Mar 14, 2017 09:31 AM LIFETIME NON-TOBACCO USER [facility] [place] [facility] Mar 01, 2016 02:51 PM LIFETIME NON-TOBACCO USER [facility] [place] [facility] Feb 10, 2015 09:31 AM QUIT TOBACCO USE > 7 YEARS AGO quit in 1964 [place] [facility] [place] [facility] Encounter Notes: All associated encounter notes This section contains the clinical notes associated to the Encounter. Date/Time Encounter Note(s) Provider Source Apr 06, 2023 12:24 PM PODIATRY NOTE: LOCAL TITLE: PODIATRY NOTE STANDARD TITLE: PODIATRY NOTE DATE OF NOTE: APR 06, 2023@12:24 ENTRY DATE: APR 06, 2023@12:25:01 AUTHOR: RE VELARDE COSIGNER: URGENCY: STATUS: COMPLETED S. 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 seen for diabetic foot care and a chronic incurvated hallux nail Last seen 3+ mos ago (R)Hallux nail has been asymptomatic at the distal lateral aspect Left great toe mildly tender at lateral nail border He went to POdiatry consult and they did not want to do another nail procedure at this time as they did not think it looked necessary and has not been painful He is s/p (L) TKR in March.History of renal failure, macular degeneration Patient does not smoke, limited exercise. S/P child rosenberg injury to (R) foot causing a shortening of the extensor tendons and a hallux elevatus He walks at home w/ socks or slippers only He wears his diabetic shoes He golfs for exercise HbA1c was 6.4% in Mar 2022 O. Nails:Elongated , brittle, dystrophic 1-5 (B). Thickened , dystrophic(R) hallux nail,past partial matrixectomy lateral border w/ partial regrowth. (L) hallux nail, incurvated medial nail border w/ distal calloused subungual debris, mildly tender, no redness or drainage Vascular:DP:palpable 1/4(B) PT:palpable 1/4 (B) cft: 2 sec Hair: absent edema : mild ankle edema (B) Sensory: good tactile( 5.07 monofilament) and positional sensations (B) Diminished vibrational sensations distally (B) No c/o numbness or paresthesia sensations Skin:cool, dry, thin. Plantar skin erythematous Lesions: none Tight extensor tendons (R) foot, causing an elevatus of the hallux. A. Diabetes, low/ moderate risk, incurvated hallux nail, dystrophic nails P. Debrided nails 1-5 (B) as needed.Incurvated hallux nail border avulsed and curetted borders bacitarcin and bandaid to left hallux lateral border, revoe this evening Skin softener daily to both feet. Powder between all toes. Discussed diabetic foot care and his elevatus and the recurring incurvated hallux nail RTC 3 month Active Outpatient Medications (including Supplies): Active Outpatient Medications Status 1) ACCU-CHEK GUIDE (GLUCOSE) TEST STRIP USE 1 STRIP TO ACTIVE TEST BLOOD SUGARS TWICE DAILY FOR USE WITH ACCU-CHECK GUIDE ME METER 2) ALLOPURINOL 300MG TAB TAKE ONE TABLET BY MOUTH ONCE ACTIVE DAILY FOR GOUT 3) CARBOXYMETHYLCELLULOSE NA 0.5% OPH SOLN INSTILL 1 ACTIVE DROP INTO EACH EYE FOUR TIMES DAILY NEEDED FOR DRY EYE 4) CHOLECALCIF 25MCG (D3-1,000UNIT) TAB TAKE ONE TABLET ACTIVE BY MOUTH ONCE DAILY FOR VITAMIN SUPPLEMENTATION 5) FERROUS GLUCONATE 324MG TAB TAKE ONE TABLET BY MOUTH ACTIVE ONCE DAILY TO SUPPLEMENT IRON 6) FLUTICASONE PROP 50MCG 120D NASAL INHL INSTILL 2 ACTIVE SPRAYS INTO EACH NOSTRIL ONCE DAILY NEEDED FOR NASAL IRRITATION/INFLAMMATION 7) INSULIN SYRINGE 0.5ML 31G 6MM USE 1 SYRINGE ACTIVE SUBCUTANEOUSLY TWICE DAILY FOR INSULIN INJECTIONS DIRECTED BY PROVIDER 8) INSULIN,GLARGINE-YFGN 100UNIT/ML INJ INJECT 20 UNITS ACTIVE SUBCUTANEOUSLY AT BEDTIME FOR BLOOD SUGAR 9) LANCET,SOFTCLIX USE 1 LANCET DIRECTED FOUR TIMES A ACTIVE DAY TO TEST BLOOD SUGAR 10) MULTIVIT/OPHTH AREDS2/LUTE/ZEAX CAP/TAB TAKE 1 ACTIVE CAPSULE BY MOUTH TWICE DAILY IN THE MORNING AND EVENING, WITH FOOD 11) OMEPRAZOLE 20MG EC CAP TAKE ONE CAPSULE BY MOUTH ACTIVE EVERY DAY FOR STOMACH ACID 12) POTASSIUM CITRATE 5MEQ SA TAB TAKE TWO TABLETS BY ACTIVE MOUTH EVERY MORNING AND TAKE ONE TABLET EVERY EVENING FOR RENAL TUBULAR ACIDOSIS 13) RIVAROXABAN 15MG TAB TAKE ONE TABLET BY MOUTH ONCE ACTIVE DAILY WITH DINNER 14) ROSUVASTATIN CA 20MG TAB TAKE ONE AND ONE-HALF ACTIVE TABLETS BY MOUTH ONCE DAILY FOR CHOLESTEROL 15) TAMSULOSIN HCL 0.4MG CAP TAKE TWO CAPSULES BY MOUTH ACTIVE AT BEDTIME Active Non-VA Medications Status 1) Non-VA METOPROLOL SUCCINATE 25MG SA TAB 25MG BY MOUTH ACTIVE EVERY DAY 16 Total Medications Podiatry related medications reviewed /es/ RE VELARDE DPM [employer] Signed: 04/06/2023 12:28 RE VELARDE [facility]
--- OUTSIDE RECORDS SUMMARY | 2024-03-20 13:56 | XMS_ITS ---
Author Name [facility] [place] [facility] [place] [facility] [place] Address [address] [place] [address] Care Team Providers Care Neurology Teacher Name Role Phone SOFI MANCERA Primary Care [...] to Policy [place] JONELLE Fountain Mar 13, 2015 [id number] VERONICA BROWN RT PATIENT MEDICARE (WNR) MEDICARE (M) PART B Aug 12, 2007 PART B [id number] VERONICA BROWN RT PATIENT MEDICARE (WNR) MEDICARE (M) PART A Jan 12, 2004 PART A [id number] VERONICA BROWN RT PATIENT Selected Encounter This section includes the information on record at [place] for the Encounter. Date/Time Encounter Type Encounter Description Reason Pro vider Source Apr 10, 2023 02:32 PM Outpatient Encounter GENERAL INTERNAL MEDICINE IHE Encounter Template Text not used by [place] Plan of Treatment: Future Appointments (+ 6 months) and Future Tests (+/- 45 days) The Plan of Treatment section includes future care activities for the patient from all [place] treatment[facility] hospital. This section includes future appointments and future orders which are active, pending or scheduled. Future Appointments This section includes appointments that were scheduled to occur 6 months from the date of the Encounter, up to a maximum of 20 appointments. The data comes from all [place] treatment facilities. Appointment Date/Time Appointment Type Appointme nt Facility Name Apr 24, 2023 11:30 AM [facility]ORY [facility]IC[facility] [place] [facility] Apr 24, 2023 12:30 PM [facility]UL[facility]IC[facility] [place] [facility] Apr 26, 2023 10:00 AM [facility]ULAT[facility]IC[facility] [place] [facility] Apr 26, 2023 11:00 AM [facility]AT[facility]IC[facility] [place] [facility] May 09, 2023 11:00 AM [facility] [place] [facility] May 12, 2023 10:00 AM [facility] [place] [facility] May 15, 2023 11:20 AM [facility] [place] [facility] May 29, 2023 11:00 AM AM[facility]ULAT[facility] [place] [facility] Jul 05, 2023 03:00 PM AM[facility]ULAT[facility]IC[facility] [place] [facility] Jul 06, 2023 10:30 AM [facility]ULAT[facility]IC[facility] [place] [facility] August 02, 2023 02:30 PM AM[facility]ULAT[facility]IC[facility] [place] [facility] August 08, 2023 02:00 PM AMBULATORY [facility]IC[facility] [place] [facility] Aug 23, 2023 10:30 AM AMBULATORY - REHAB MEDICIN E [facility] [place] [facility] Sep 01, 2023 11:30 AM AMBULAT[facility]IC[facility] [place] [facility] Sep 11, 2023 02:30 PM AMBULATORY [facility]IC[facility] [place] [facility] Sep 15, 2023 10:30 AM AMBULATORY [facility]IC[facility] [place] [facility] Oct 02, 2023 09:30 AM AM[facility]ULATORY [facility]IC[facility] [place] [facility] Oct 04, 2023 10:00 AM AMBULATORY - MEDICINE [facility] Lab Results: +/- 30 days of the [...] Range Comment Apr 26, 2023 11:12 AM [facility] PO4 Specimen Type: SERUM No comment entered. Ordering Provider: ALYCIA STEVENS Report Released Date/Time: Nov 01, 2022 09:00 PM Reporting Lab: [facility] [place] [address] [address] [facility]forming Lab: [facility] [address] [address] PO4 2.5 mg/dL 2.5-5.0 Apr 26, 2023 11:[address] [facility] PTH INTACT Specimen Type: SERUM No comment entered. Ordering Provider: ALYCIA STEVENS Report Released Date/Time: Nov 01, 2022 09:00 PM Reporting Lab: [facility] [place] [facility] [address] [facility] [address] Performing Lab: [facility] [address] [address] PTH INTACT 118.5 pg/mL H 10-65 Apr 26, 2023 11:12 AM [facility]TR[facility] URIC ACID Specimen Type: SERUM No comment entered. Ordering Provider: ALYCIA STEVENS Report Released Date/Time: Nov 01, 2022 09:00 PM Reporting Lab: [facility] [place] [address] [address] Performing Lab: [facility] [place] [address] [address] URIC ACID 3.1 mg/dL L 3.5-7.2 Apr 26, 2023 11:12 AM [facility] FERRITIN Specimen Type: SERUM No comment entered. Ordering Provider: ALYCIA STEVENS Report Released Date/Time: Nov 01, 2022 09:00 PM Reporting Lab: [facility] [address] [facility] [address] Performing Lab: [facility] [address] [address] FERRITIN 40 ng/mL 20-300 Apr 26, 2023 11:12 AM [facility] ALKALINE PHOSPHATASE Specimen Type: SERUM No comment entered. Ordering Provider: ALYCIA STEVENS Report Released Date/Time: Nov 01, 2022 09:00 PM Reporting Lab: [address] [address] Performing Lab: [address] [address] ALKALINE PHOSPHATASE 78 U/L 40-150 Apr 26, 2023 11:12 AM [facility] MAGNESIUM Specimen Type: SERUM No comment entered. Ordering Provider: ALYCIA STEVENS Report Released Date/Time: Nov 01, 2022 09:00 PM Reporting Lab: [address] [address] Performing Lab: [facility] [address] [address] MAGNESIUM 2.0 mg/dL 1.6-2.6 Apr 26, 2023 11:12 AM [facility] CBC Specimen Type: BLOOD No comment entered. Ordering Provider: ALYCIA STEVENS Report Released Date/Time: Nov 01, 2022 09:00 PM Reporting Lab: [facility] [address] Performing Lab: [facility] [address] [address] WBC 8.31 10*3/uL 4.50-11.00 RBC 4.42 10*6/uL 4.23-5.66 HGB 13.2 g/dL 12.8-17 HCT 41.3 39.2-50.4 MCV 93.4 fL 82-99 MCHC 32.0 g/dL 30.8-35.1 PLT 196 10*3/uL 140-360 RDW-CV 14.3 12.0-16.0 MCH 29.9 pg 26.2-32.6 Apr 26, 2023 11:12 AM [facility] IRON & TIBC PANEL Specimen Type: SERUM No comment entered. Ordering Provider: ALYCIA STEVENS A Report Released Date/Time: Nov 01, 2022 09:00 PM Reporting Lab: [address] [address] Performing Lab: [address] [address] TIBC 341 ug/dL 204-475 IRON 69 ug/dL 40-160 Transferrin Saturation 20.3 20.0-50.0 Apr 26, 2023 11:12 AM [facility] VITAMIN D (25-[place]) Specimen Type: SERUM No comment entered. Ordering Provider: ALYCIA STEVENS Report Released Date/Time: Nov 01, 2022 09:00 PM Reporting Lab: [facility] [address] Performing Lab: [facility] [address] VITAMIN D (25-[place]) 36 ng/mL 20-50 Apr 26, 2023 11:12 AM [facility] CALCIUM Specimen Type: SERUM No comment entered. Ordering Provider: ALYCIA STEVENS Report Released Date/Time: Nov 01, 2022 09:00 PM Reporting Lab: [facility] [address] Performing Lab: [facility] [address] [address] CALCIUM 9.4 mg/dL 8.5-10.2 Apr 26, 2023 11:12 AM [facility] CHOLESTEROL Specimen Type: SERUM No comment entered. Ordering Provider: ALYCIA STEVENS A Report Released Date/Time: Nov 01, 2022 09:00 PM Reporting Lab: [facility]RD[facility]TRN [facility] [address] [address] Performing Lab: [facility]ITALRL TRN [facility] [address] [address] CHOLESTEROL 131 mg/dL Apr 26, 2023 11:[address] [facility] HDL CHOLESTEROL Specimen Type: SERUM No comment entered. Ordering Provider: ALYCIA STEVENS A Report Released Date/Time: Nov 01, 2022 09:00 PM Reporting Lab: [facility]TRN [facility] [address] [address] Performing Lab: [facility]ITALRGREENE [facility] HOSPITALN [facility]ITAL[facility] [address] [address] HDL CHOLESTEROL 49 mg/dL 40-60 Apr 26, 2023 11:12 AM [facility] MICROALBUMIN CREATININE RATIO PANEL Specimen Type: URINE No comment entered. Ordering Provider: ALYCIA STEVENS A Report Released Date/Time: Nov 01, 2022 09:00 PM Reporting Lab: [facility]TRN [facility] [address] [address] Performing Lab: [facility]RD[facility]ENTERTRN [facility] [address] [address] MICROALBUMIN/C REATININE RATIO 129.2 mg/g H 0-29.9 MICROALBUMIN,Q UANTITATIVE 12.5 mg/dL RR UNAVAIL CREATININE URINE 96.73 mg/dL Apr 26, 2023 11:[address] [facility] BASIC METABOLIC PANEL (non-fasting) Specimen Type: SERUM No comment entered. Ordering Provider: ALYCIA STEVENS Report Released Date/Time: Nov 01, 2022 09:00 PM Reporting Lab: [facility]ITALRL WSTRN [facility]ITALUS[facility] [address] [address] Performing Lab: [facility] [address] UREA NITROGEN 23 mg/dL 7-25 GLUCOSE 136 mg/dL H 65-100 SODIUM 140 mmol/L 135-145 POTASSIUM 4.7 mmol/L 3.5-5.0 CHLORIDE 109 mmol/L 100-110 CO2 25 meq/L 20-30 CREATININE, Serum 2.01 mg/dL H 0.50-1.40 eGFR(CKD-EPI 2020) 32 mL/min L >60 Apr 06, 2023 11:[address] [facility] LIPID PANEL FASTING Specimen Type: SERUM No comment entered. Ordering Provider: SOFI MANCERA Report Released Date/Time: Apr 05, 2023 04:18 PM Reporting Lab: [facility]ITALUSEUP[facility] [address] [facility] [address] Performing Lab: [facility]ITALUSE[address] [address] CHOLESTEROL 142 mg/dL TRIGLYCERIDE 118 mg/dL 0-150 LDL calculated 65 mg/dL 0-129 CHOL/HDL 2.7 HDL CHOLESTEROL 53 mg/dL 40-60 Apr 06, 2023 11:39 AM [facility] TSH Specimen Type: SERUM No comment entered. Ordering Provider: SOFI MANCERA Report Released Date/Time: Apr 05, 2023 04:18 PM Reporting Lab: [facility]ITALUSEUP[facility] [address] [facility] [address] Performing Lab: [facility]USE[address] [address] TSH 1.33 u[IU]/mL 0.35-5.00 Apr 06, 2023 11:39 AM [facility] LIVER FUNCTION Specimen Type: SERUM No comment entered. Ordering Provider: SOFI MANCERA Report Released Date/Time: Apr 05, 2023 04:18 PM Reporting Lab: [facility]ITAL[facility] [address] [facility] [address] Performing Lab: [facility]ITALUSE[address] [address] PROTEIN,TOTAL 6.3 g/dL 6.0-8.3 ALBUMIN 3.6 g/dL 3.5-5.0 ALKALINE PHOSPHATASE 70 U/L 40-150 AST 14 U/L 5-34 ALT 10 U/L BILIRUBIN, TOTAL 0.5 mg/dL 0.2-1.2 Apr 06, 2023 11:39 AM [facility] HEMOGLOBIN A1C PANEL Specimen Type: BLOOD [...] Apr 05, 2023 04:18 PM Reporting Lab: [address] [address] Performing Lab: [address] [address] HEMOGLOBIN A1C 6.4 H 4.0-5.6 Apr 06, 2023 11:39 AM [facility] MICROALBUMIN CREATININE RATIO PANEL Specimen Type: URINE No comment entered. Ordering Provider: SOFI MANCERA Report Released Date/Time: Apr 05, 2023 04:18 PM Reporting Lab: [address] [address] Performing Lab: [address] [address] MICROALBUMIN/C REATININE RATIO 130.6 mg/g H 0-29.9 MICROALBUMIN,Q UANTITATIVE 12.8 mg/dL RR UNAVAIL CREATININE URINE 97.99 mg/dL Apr 06, 2023 11:39 AM [facility] URIC ACID Specimen Type: SERUM No comment entered. Ordering Provider: SOFI MANCERA Report Released Date/Time: Apr 05, 2023 04:19 PM Reporting Lab: [address] [address] Performing Lab: [address] [address] URIC ACID 2.9 mg/dL L 3.5-7.2 Apr 06, 2023 11:39 AM [facility] URINALYSIS CLEAN CATCH Specimen Type: URINE Comment: If Glucose = >500 and Ketones are positive, please alert the Physician. Ordering Provider: SOFI MANCERA Report Released Date/Time: Apr 05, 2023 04:18 PM Reporting Lab: [facility] [address] [facility] [address] Performing Lab: [address] [address] UA COLOR Light-Yellow Yellow UA APPEARANCE Clear Clear UA GLUCOSE NEGATIVE mg/dL Negative UA KETONES NEGATIVE mg/dL Negative UA BLOOD NEGATIVE mg/dL Negative UA PROTEIN 20 mg/dL Negative UA NITRITE NEGATIVE mg/dL Negative UA BILIRUBIN NEGATIVE mg/dL Negative UA SPECIFIC GRAVITY 1.017 1.016-1.02 2 UA pH 6.0 5.0-9.0 UA UROBILINOGEN <2.0 mg/dL <2.0 UA LEUKOCYTE NEGATIVE Negative Apr 06, 2023 11:39 AM [facility] BASIC METABOLIC PANEL (fasting) Specimen Type: SERUM No comment entered. Ordering Provider: SOFI MANCERA Report Released Date/Time: Apr 05, 2023 04:18 PM Reporting Lab: [address] [address] Performing Lab: [address] [address] UREA NITROGEN 23 mg/dL 7-25 GLUCOSE 163 mg/dL H 65-100 SODIUM 140 mmol/L 135-145 POTASSIUM 4.7 mmol/L 3.5-5.0 CHLORIDE 108 mmol/L 100-110 CO2 23 meq/L 20-30 CREATININE, Serum 1.90 mg/dL H 0.50-1.40 eGFR(CKD-EPI 2020) 34 mL/min L >60 Apr 06, 2023 11:39 AM [facility] CBC AND DIFF (AUTO) Specimen Type: BLOOD No comment entered. Ordering Provider: SOFI MANCERA Report Released Date/Time: Apr 05, 2023 04:18 PM Reporting Lab: [address] [address] Performing Lab: [address] [address] WBC 7.36 10*3/uL 4.50-11.00 RBC 4.36 10*6/uL 4.23-5.66 HGB 13.0 g/dL 12.8-17 HCT 40.9 39.2-50.4 MCV 93.8 fL 82-99 MCHC 31.8 g/dL 30.8-35.1 PLT 188 10*3/uL 140-360 RDW-CV 13.6 12.0-16.0 [place], Abs 0.63 10*3/uL 0.30-1.10 MCH 29.8 pg 26.2-32.6 Neut % 66.9 43.7-75.8 Lymph % 19.2 14.0-42.3 [place] % 8.6 5.1-13.7 Eos % 4.6 0.4-6.8 Baso % 0.4 0.1-2.0 Neut, Abs 4.93 10*3/uL 2.20-7.60 Lymph, Abs 1.41 10*3/uL 1.00-3.20 Eos, Abs 0.34 10*3/uL 0.03-0.44 Baso, Abs 0.03 10*3/uL 0.01-0.13 Immature Gran % 0.3 0.0-0.7 Immature Gran, Abs 0.02 10*3/uL 0.00-0.06 Mar 23, 2023 02:03 PM [facility] HDL CHOLESTEROL Specimen Type: SERUM No comment entered. Ordering Provider: ALYCIA STEVENS Report Released Date/Time: Mar 14, 2023 10:53 AM Reporting Lab: [address] [address] Performing Lab: [address] [address] HDL CHOLESTEROL 49 mg/dL 40-60 Mar 23, 2023 02:03 PM [facility] MICROALBUMIN CREATININE RATIO PANEL Specimen Type: URINE No comment entered. Ordering Provider: ALYCIA STEVENS Report Released Date/Time: Mar 14, 2023 10:53 AM Reporting Lab: [address] [place] [address] Performing Lab: [facility] [address] [facility] [address] MICROALBUMIN/C REATININE RATIO 138.3 mg/g H 0-29.9 MICROALBUMIN,Q UANTITATIVE 17.1 mg/dL RR UNAVAIL CREATININE URINE 123.64 mg/dL Mar 23, 2023 02:03 PM [facility] FERRITIN Specimen Type: SERUM No comment entered. Ordering Provider: ALYCIA STEVENS Report Released Date/Time: Mar 14, 2023 10:53 AM Reporting Lab: [facility] [address] [facility] [address] Performing Lab: [address] [address] FERRITIN 34 ng/mL 20-300 Mar 23, 2023 02:03 PM [facility] CALCIUM Specimen Type: SERUM No comment entered. Ordering Provider: ALYCIA STEVENS Report Released Date/Time: Mar 14, 2023 10:53 AM Reporting Lab: [facility] [address] [facility] [address] Performing Lab: [facility] [address] [facility] [address] CALCIUM 9.1 mg/dL 8.5-10.2 Mar 23, 2023 02:03 PM [facility] IRON & TIBC PANEL Specimen Type: SERUM No comment entered. Ordering Provider: ALYCIA STEVENS Report Released Date/Time: Mar 14, 2023 10:53 AM Reporting Lab: [facility] [address] [facility] [address] Performing Lab: [facility] [address] TIBC 347 ug/dL 204-475 IRON 65 ug/dL 40-160 Transferrin Saturation 18.7 L 20.0-50.0 Mar 23, 2023 02:03 PM [facility] VITAMIN D (25-[place]) Specimen Type: SERUM No comment entered. Ordering Provider: ALYCIA STEVENS Report Released Date/Time: Mar 14, 2023 10:53 AM Reporting Lab: [facility]RL TRN [facility]ITAL[facility] [address] [facility] [address] Performing Lab: [facility]ITALRL TRN [facility]ITALUSETS [address] [address] VITAMIN D (25-OH) 33 ng/mL 20-50 Mar 23, 2023 02:[address] [facility] MAGNESIUM Specimen Type: SERUM No comment entered. Ordering Provider: ALYCIA STEVENS Report Released Date/Time: Mar 14, 2023 10:53 AM Reporting Lab: [facility]ITALRDCH [facility]ENTERTRN [facility]ITALUSETS [address] [address] Performing Lab: [facility]ITALRGREENE COUNTY HOSPITALN [facility]ITALUSETS [address] [address] MAGNESIUM 2.0 mg/dL 1.6-2.6 Mar 23, 2023 02:03 PM [facility] CHOLESTEROL Specimen Type: SERUM No comment entered. Ordering Provider: ALYCIA STEVENS Report Released Date/Time: Mar 14, 2023 10:53 AM Reporting Lab: [facility]ITALRDCH [facility]ENTERTRN [facility]ITALUSETS [facility] [address] [facility] [address] Performing Lab: [facility]ITALRL TRN [facility]ITALUSETS [address] [address] CHOLESTEROL 138 mg/dL Mar 23, 2023 02:[address] [facility]USEUP[facility] PO4 Specimen Type: SERUM No comment entered. Ordering Provider: ALYCIA STEVENS Report Released Date/Time: Mar 14, 2023 10:53 AM Reporting Lab: [facility]ITALRDCH [facility]ENTERTRN [facility]ITALUSETS [address] [address] Performing Lab: [facility]ITALRDCH [facility]ENTERTRN [facility]ITALUSETS [address] [address] PO4 2.2 mg/dL L 2.5-5.0 Mar 23, 2023 02:[address] [facility]USEUP[facility] PTH INTACT Specimen Type: SERUM No comment entered. Ordering Provider: ALYCIA STEVENS Report Released Date/Time: Mar 14, 2023 10:53 AM Reporting Lab: [facility]ITALRL [facility] [place] [facility] [address] [facility] [address] Performing Lab: [place] [facility] [address] [facility] [address] PTH INTACT 116.9 pg/mL H 10-65 Mar 23, 2023 02:03 PM [facility]ITALRL [facility]ERN [facility]ITAL[facility] URIC ACID Specimen Type: SERUM No comment entered. Ordering Provider: ALYCIA STEVENS Report Released Date/Time: Mar 14, 2023 10:53 AM Reporting Lab: [facility]ITALRL TRN [facility]ITALUSETS [facility] [address] [facility] [address] Performing Lab: [place] [facility] TRN [facility] [address] [address] URIC ACID 3.0 mg/dL L 3.5-7.2 Mar 23, 2023 02:[address] [facility] ALKALINE PHOSPHATASE Specimen Type: SERUM No comment entered. Ordering Provider: ALYCIA STEVENS Report Released Date/Time: Mar 14, 2023 10:53 AM Reporting Lab: [facility]ITALRL TRN [facility]US[facility] [address] [address] Performing Lab: [facility]RL TRN [facility] [address] [address] ALKALINE PHOSPHATASE 74 U/L 40-150 Mar 23, 2023 02:03 PM [facility]ITALRGREENE COUNTY HOSPITALN [facility]ITALUS[facility] CBC Specimen Type: BLOOD No comment entered. Ordering Provider: ALYCIA STEVENS Report Released Date/Time: Mar 14, 2023 10:53 AM Reporting Lab: [facility]ITALRL TRN [facility]ITALUSETS [address] [address] Performing Lab: [place] [address] [address] WBC 6.76 10*3/uL 4.50-11.00 RBC 4.44 10*6/uL 4.23-5.66 HGB 13.6 g/dL 12.8-17 HCT 41.6 39.2-50.4 MCV 93.7 fL 82-99 MCHC 32.7 g/dL 30.8-35.1 PLT 188 10*3/uL 140-360 RDW-CV 13.6 12.0-16.0 MCH 30.6 pg 26.2-32.6 Mar 23, 2023 02:03 PM [facility] BASIC METABOLIC PANEL (non-fasting) Specimen Type: SERUM No comment entered. Ordering Provider: ALYCIA STEVENS Report Released Date/Time: Mar 14, 2023 10:53 AM Reporting Lab: [facility] [address] [facility] [address] Performing Lab: [facility] [address] [facility] [address] UREA NITROGEN 20 mg/dL 7-25 GLUCOSE 173 [...] and tobacco- related health factors from the [place] facility where the Encounter took place. Current Smoking Status This section includes the most current smoking, or tobacco-related health factor, from the [place] facility where the Encounter took place. Date/Time Current Smoking Status Comment María Elena armijo Mar 30, 2022 11:00 AM VA-TOBACCO FORMER USER [facility] Tobacco Use History This section includes a history of the smoking, or tobacco-related health factors, that were collected on or before the date of the Encounter. The data comes from the [place] facility where the Encounter took place. Date/Time Smoking Status/Tobacco Use Comment Gamaliel landin Mar 30, 2022 11:00 AM VA-TOBACCO QUIT [address] [facility] Mar 17, 2021 01:30 PM VA-TOBACCO FORMER USER [facility] Mar 17, 2021 01:30 PM VA-TOBACCO NEVER USED [facility] Mar 17, 2021 01:30 PM VA-TOBACCO QUIT 15 YRS OR MORE [facility] [place] [facility] Mar 31, 2020 10:30 AM VA-TOBACCO FORMER USER [facility] [place] [facility] Mar 31, 2020 10:30 AM VA-TOBACCO QUIT 15 YRS OR MORE [facility] [place] [facility] Nov 23, 2018 12:07 PM VA-TOBACCO FORMER USER [facility] [place] [facility] Nov 23, 2018 12:07 PM VA-TOBACCO QUIT 15 YRS OR MORE [facility] [place] [facility] Nov 22, 2017 10:02 AM VA-TOBACCO NEVER USED [facility] [place] [facility] Mar 14, 2017 09:31 AM LIFETIME NON-TOBACCO USER [facility] [place] [facility] Mar 01, 2016 02:51 PM LIFETIME NON-TOBACCO USER [facility] [place] [facility] Feb 10, 2015 09:31 AM QUIT TOBACCO USE > 7 YEARS AGO quit in 1964 [facility] [place] [facility] Encounter Notes: All associated encounter notes This section contains the clinical notes associated to the Encounter. Date/Time Encounter Note(s) Provider Source Apr 10, 2023 02:32 PM NURSING OUTPATIENT NOTE: LOCAL TITLE: NURSING/SPECIALTY CLINIC NOTE STANDARD TITLE: NURSING OUTPATIENT NOTE DATE OF NOTE: APR 10, 2023@14:32 ENTRY DATE: APR 10, 2023@14:32:40 AUTHOR: ILSA SALINAS EXP COSIGNER: URGENCY: STATUS: COMPLETED NURSING/SPECIALTY CLINIC NOTE Has ADDENDA Letter mailed out today, with lab orders one month prior to 's upcoming nephrology appointment. /aida SALINAS LPN LICENSED PRACTICAL NURSE Signed: 04/10/2023 14:32 04/21/2023 ADDENDUM STATUS: COMPLETED Called today to remind them of upcoming nephrology appointment. [place] was notified that non-fasting labs and urine were ordered and need to be complete prior to appointment. states they will get the labs done. /aida SALINAS LPN LICENSED PRACTICAL NURSE Signed: 04/21/2023 14:55 [facility]
--- OUTSIDE RECORDS SUMMARY | 2024-03-20 13:56 | XMS_ITS ---
Author Name [facility] Organization [facility] Address [address] [place] [address] Care Team Providers Care Water Ski Assembler Name Role Phone SOFI MANCERA Primary Care [...] to Policy [place] JONELLE TOWNESND MEDEX CHARAN E Mar 13, 2015 [id number] VERONICA BROWN RT PATIENT MEDICARE (WNR) MEDICARE (M) PART B Aug 12, 2007 PART B [id number] VERONICA BROWN RT PATIENT MEDICARE (WNR) MEDICARE (M) PART A Jan 12, 2004 PART A [id number] VERONICA BROWN RT PATIENT Selected Encounter This section includes the information on record at NH for the Encounter. Date/Time Encounter Type Encounter Description Reason Provider Source Apr 05, 2023 11:00 AM OFFICE O/P EST MOD 30 MIN RENAL/NEPHROL(EXCE PT DIALYSIS) ICD-10-CM E11.22 Type 2 diabetes mellitus w diabetic chronic kidney disease ALYCIA STEVENS [facility] Encounter Template Text not used by NH Assessments - Encounter Diagnoses This section includes the primary and secondary diagnoses documented for the Encounter. Date/Time Primary/Secondary Diagnosis Diagnosis Name Provider Source Dec 07, 2023 12:08 PM PRIMARY Type 2 diabetes mellitus w diabetic chronic kidney disease NEENA STEVENS [place] [facility] [place] [facility] Dec 07, 2023 12:08 PM SECONDARY Chronic kidney disease, stage 3 unspecified NEENA STEVENS [place] [facility] [place] [facility] Dec 07, 2023 12:08 PM SECONDARY Hyperlipidemia, unspecified NEENA STEVENS [place] [facility] [place] [facility] Dec 07, 2023 12:08 PM SECONDARY Type 2 diabetes mellitus without complications [facility]EENA STEVENS [facility] Plan of Treatment: Future Appointments (+ 6 months) and Future Tests (+/- 45 days) The Plan of Treatment section includes future care activities for the patient from all [facility] This section includes future appointments and future orders which are active, pending or scheduled. Future Appointments This section includes appointments that were scheduled to occur 6 months from the date of the Encounter, up to a maximum of 20 appointments. The data comes from all [place] treatment facilities. Appointment Date/Time Appointment Type Appointme nt Facility Name Apr 06, 2023 12:00 PM AMBULATORY - MEDICINE [place] [place] [facility] Apr 24, 2023 11:30 AM AMBULATORY - MEDICINE [place] [facility] [place] [place] [facility] Apr 24, 2023 12:30 PM AMBULATORY - MEDICINE [place] [facility] [place] [facility] Apr 26, 2023 10:00 AM AMBULATORY - MEDICINE [place] [facility] [place] [facility] Apr 26, 2023 11:00 AM AMBULATORY - MEDICINE [place] [facility] [place] [facility] May 09, 2023 11:00 AM AMBULATORY - MEDICINE [place] [facility] [place] [facility] May 12, 2023 10:00 AM AMBULATORY - MEDICINE [place] [facility] [place] [facility] May 15, 2023 11:20 AM AMBULATORY - MEDICINE [place] [facility] [place] [facility] May 29, 2023 11:00 AM AMBULATORY - MEDICINE [facility] [place] [facility] Jul 05, 2023 03:00 PM AMBULATORY - MEDICINE [facility] [place] [facility] Jul 06, 2023 10:30 AM AMBULATORY - MEDICINE [facility] [place] [facility] August 02, 2023 02:30 PM AMBULATORY - MEDICINE [facility] [place] [facility] August 08, 2023 02:00 PM AMBULATORY - MEDICINE [facility] [place] [facility] Aug 23, 2023 10:30 AM AMBULATORY - REHAB MEDICIN E [facility] [place] [facility] Sep 01, 2023 11:30 AM AMBULATORY - MEDICINE [facility] [place] [facility] Sep 11, 2023 02:30 PM AMBULATORY - MEDICINE [facility] [place] [place] [facility] Sep 15, 2023 10:30 AM AMBULATORY - MEDICINE [facility] [place] [facility] Oct 02, 2023 09:30 AM AMBULATORY - MEDICINE [facility] [place] [facility] Oct 04, 2023 10:00 AM AMBULATORY - MEDICINE [place] [facility] [place] [facility] Lab Results: +/- 30 days of the encounter This section includes the Chemistry and Hematology Lab Results on record with NH for the patient. Radiology Reports and Pathology Reports are provided separately, in subsequent sections. Lab Results This section contains the Chemistry/Hematology Results that were resulted 30 days before or 30 daysafter the date of the Encounter. Date/Time Source Result Type Result - Unit Interpretation Reference Range Comment Apr 26, 2023 11:12 AM [place] [facility] [place] [facility] PO4 Specimen Type: SERUM No comment entered. Ordering Provider: ALYCIA STEVENS Report Released Date/Time: Nov 01, 2022 09:00 PM Reporting Lab: [place] [facility] [place] [facility] [address] [facility] [address] Performing Lab: [place] [facility] [place] [facility] [address] [facility] [address] PO4 2.5 mg/dL 2.5-5.0 Apr 26, 2023 11:[address] PTH INTACT Specimen Type: SERUM No comment entered. Ordering Provider: ALYCIA STEVENS Report Released Date/Time: Nov 01, 2022 09:00 PM Reporting Lab: [place] [facility] [place] [facility] [address] [facility] [address] Performing Lab: [place] [facility] [place] [facility] [address] [facility] [address] PTH INTACT 118.5 pg/mL H 10-65 Apr 26, 2023 11:12 AM [facility] URIC ACID Specimen Type: SERUM No comment entered. Ordering Provider: ALYCIA STEVENS Report Released Date/Time: Nov 01, 2022 09:00 PM Reporting Lab: [facility] [place] [facility] [address] [facility] [address] Performing Lab: [place] [address] [address] URIC ACID 3.1 mg/dL L 3.5-7.2 Apr 26, 2023 11:12 AM [facility]ITALN [facility] ALKALINE PHOSPHATASE Specimen Type: SERUM No comment entered. Ordering Provider: ALYCIA STEVENS Report Released Date/Time: Nov 01, 2022 09:00 PM Reporting Lab: [facility] [place] [facility] [address] [facility] [address] Performing Lab: [facility] [place] [address] [address] ALKALINE PHOSPHATASE 78 U/L 40-150 Apr 26, 2023 11:12 AM [facility] FERRITIN Specimen Type: SERUM No comment entered. Ordering Provider: ALYCIA STEVENS Report Released Date/Time: Nov 01, 2022 09:00 PM Reporting Lab: [facility] [place] [place] [facility] [address] [facility] [address] Performing Lab: [place] [place] [address] [address] FERRITIN 40 ng/mL 20-300 Apr 26, 2023 11:12 AM [facility] CALCIUM Specimen Type: SERUM No comment entered. Ordering Provider: ALYCIA STEVENS Report Released Date/Time: Nov 01, 2022 09:00 PM Reporting Lab: [facility]ENTERRINFIRMARY LTAC HOSPITALTRN [facility]ITALUSETS [facility] [address] [facility] [address] Performing Lab: [facility]ENTERRINFIRMARY LTAC HOSPITALTRN [facility]OSPITALUSETS [address] [address] CALCIUM 9.4 mg/dL 8.5-10.2 Apr 26, 2023 11:12 AM [facility] MAGNESIUM Specimen Type: SERUM No comment entered. Ordering Provider: ALYCIA STEVENS Report Released Date/Time: Nov 01, 2022 09:00 PM Reporting Lab: [facility] [address] [address] Performing Lab: [facility]OSPITALUSE[address] [address] MAGNESIUM 2.0 mg/dL 1.6-2.6 Apr 26, 2023 11:12 AM [facility] IRON & TIBC PANEL Specimen Type: SERUM No comment entered. Ordering Provider: ALYCIA STEVENS Report Released Date/Time: Nov 01, 2022 09:00 PM Reporting Lab: [facility]OSPITALUSE[address] [address] Performing Lab: [facility]OSPITALUSETS [address] [address] TIBC 341 ug/dL 204-475 IRON 69 ug/dL 40-160 Transferrin Saturation 20.3 20.0-50.0 Apr 26, 2023 11:12 AM [facility] CBC Specimen Type: BLOOD No comment entered. Ordering Provider: ALYCIA STEVENS Report Released Date/Time: Nov 01, 2022 09:00 PM Reporting Lab: [facility]OSPITALUSETS [address] [address] Performing Lab: [facility]ENTERRCOMMUNITY HOSPITALN [facility]OSPITALUSETS [address] [address] WBC 8.31 10*3/uL 4.50-11.00 RBC 4.42 10*6/uL 4.23-5.66 HGB 13.2 g/dL 12.8-17 HCT 41.3 39.2-50.4 MCV 93.4 fL 82-99 MCHC 32.0 g/dL 30.8-35.1 PLT 196 10*3/uL 140-360 RDW-CV 14.3 12.0-16.0 MCH 29.9 pg 26.2-32.6 Apr 26, 2023 11:12 AM [place] [facility] [place] [facility] VITAMIN D (25-OH) Specimen Type: SERUM No comment entered. Ordering Provider: ALYCIA STEVENS A Report Released Date/Time: Nov 01, 2022 09:00 PM Reporting Lab: [place] [place] [address] [address] Performing Lab: [place] [facility] [place] [address] [address] VITAMIN D (25-OH) 36 ng/mL 20-50 Apr 26, 2023 11:12 AM [place] [facility] [place] [facility] CHOLESTEROL Specimen Type: SERUM No comment entered. Ordering Provider: ALYCIA STEVENS A Report Released Date/Time: Nov 01, 2022 09:00 PM Reporting Lab: [place] [facility] [place] [facility] [address] [facility] [address] Performing Lab: [place] [facility] [place] [address] [address] CHOLESTEROL 131 mg/dL Apr 26, 2023 11:12 AM [facility] [place] [place] [facility] HDL CHOLESTEROL Specimen Type: SERUM No comment entered. Ordering Provider: ALYCIA STEVENS Report Released Date/Time: Nov 01, 2022 09:00 PM Reporting Lab: [place] [facility] [place] [facility] [address] [facility] [address] Performing Lab: [place] [place] [address] [address] HDL CHOLESTEROL 49 mg/dL 40-60 Apr 26, 2023 11:12 AM [place] [facility] [place] [facility] MICROALBUMIN CREATININE RATIO PANEL Specimen Type: URINE No comment entered. Ordering Provider: ALYCIA STEVENS Report Released Date/Time: Nov 01, 2022 09:00 PM Reporting Lab: [facility] [address] [facility] [address] Performing Lab: [facility]OSPITALUSEHEN[facility] [address] [facility] [address] MICROALBUMIN/C REATININE RATIO 129.2 mg/g H 0-29.9 MICROALBUMIN,Q UANTITATIVE 12.5 mg/dL RR UNAVAIL CREATININE URINE 96.73 mg/dL Apr 26, 2023 11:12 AM [facility] BASIC METABOLIC PANEL (non-fasting) Specimen Type: SERUM No comment entered. Ordering Provider: ALYCIA STEVENS Report Released Date/Time: Nov 01, 2022 09:00 PM Reporting Lab: [address] [address] Performing Lab: [address] [address] UREA NITROGEN 23 mg/dL 7-25 GLUCOSE 136 mg/dL H 65-100 SODIUM 140 mmol/L 135-145 POTASSIUM 4.7 mmol/L 3.5-5.0 CHLORIDE 109 mmol/L 100-110 CO2 25 meq/L 20-30 CREATININE, Serum 2.01 mg/dL H 0.50-1.40 eGFR(CKD-EPI 2020) 32 mL/min L >60 Apr 06, 2023 11:39 AM [facility] TSH Specimen Type: SERUM No comment entered. Ordering Provider: SOFI MANCERA Report Released Date/Time: Apr 05, 2023 04:18 PM Reporting Lab: [facility] [address] [facility] [address] Performing Lab: [facility] [address] [address] TSH 1.33 u[IU]/mL 0.35-5.00 Apr 06, 2023 11:39 AM [facility] LIVER FUNCTION Specimen Type: SERUM No comment entered. Ordering Provider: SOFI MANCERA Report Released Date/Time: Apr 05, 2023 04:18 PM Reporting Lab: [address] [address] Performing Lab: [facility] [address] [facility] [address] PROTEIN,TOTAL 6.3 g/dL 6.0-8.3 ALBUMIN 3.6 g/dL 3.5-5.0 ALKALINE PHOSPHATASE 70 U/L 40-150 AST 14 U/L 5-34 ALT 10 U/L BILIRUBIN, TOTAL 0.5 mg/dL 0.2-1.2 Apr 06, 2023 11:39 AM [facility] LIPID PANEL FASTING Specimen Type: SERUM No comment entered. Ordering Provider: SOFI MANCERA Report Released Date/Time: Apr 05, 2023 04:18 PM Reporting Lab: [address] [address] Performing Lab: [address] [address] CHOLESTEROL 142 mg/dL TRIGLYCERIDE 118 mg/dL 0-150 LDL calculated 65 mg/dL 0-129 CHOL/HDL 2.7 HDL CHOLESTEROL 53 mg/dL 40-60 Apr 06, 2023 11:39 AM [facility] HEMOGLOBIN A1C PANEL Specimen Type: BLOOD Comment: [...] Apr 05, 2023 04:18 PM Reporting Lab: [facility] [address] [facility] [address] Performing Lab: [address] [address] HEMOGLOBIN A1C 6.4 H 4.0-5.6 Apr 06, 2023 11:39 AM [facility] MICROALBUMIN CREATININE RATIO PANEL Specimen Type: URINE No comment entered. Ordering Provider: SOFI MANCERA Report Released Date/Time: Apr 05, 2023 04:18 PM Reporting Lab: [facility] [address] [facility] [address] Performing Lab: [address] [address] MICROALBUMIN/C REATININE RATIO 130.6 mg/g H 0-29.9 MICROALBUMIN,Q UANTITATIVE 12.8 mg/dL RR UNAVAIL CREATININE URINE 97.99 mg/dL Apr 06, 2023 11:39 AM [facility] URIC ACID Specimen Type: SERUM No comment entered. Ordering Provider: SOFI MANCERA Report Released Date/Time: Apr 05, 2023 04:19 PM Reporting Lab: [address] [address] Performing Lab: [address] [address] URIC ACID 2.9 mg/dL L 3.5-7.2 Apr 06, 2023 11:39 AM [facility] URINALYSIS CLEAN CATCH Specimen Type: URINE Comment: If Glucose = >500 and Ketones are positive, please alert the Physician. Ordering Provider: SOFI MANCERA Report Released Date/Time: Apr 05, 2023 04:18 PM Reporting Lab: [address] [address] Performing Lab: [address] [address] UA COLOR Light-Yellow Yellow UA APPEARANCE Clear Clear UA GLUCOSE NEGATIVE mg/dL Negative UA KETONES NEGATIVE mg/dL Negative UA BLOOD NEGATIVE mg/dL Negative UA PROTEIN 20 mg/dL Negative UA NITRITE NEGATIVE mg/dL Negative UA BILIRUBIN NEGATIVE mg/dL Negative UA SPECIFIC GRAVITY 1.017 1.016-1.02 2 UA pH 6.0 5.0-9.0 UA UROBILINOGEN <2.0 mg/dL <2.0 UA LEUKOCYTE NEGATIVE Negative Apr 06, 2023 11:39 AM [facility] BASIC METABOLIC PANEL (fasting) Specimen Type: SERUM No comment entered. Ordering Provider: SOFI MANCERA Report Released Date/Time: Apr 05, 2023 04:18 PM Reporting Lab: [facility] [address] [facility] [address] Performing Lab: [facility] [address] [facility] [address] UREA NITROGEN 23 mg/dL 7-25 GLUCOSE 163 mg/dL H 65-100 SODIUM 140 mmol/L 135-145 POTASSIUM 4.7 mmol/L 3.5-5.0 CHLORIDE 108 mmol/L 100-110 CO2 23 meq/L 20-30 CREATININE, Serum 1.90 mg/dL H 0.50-1.40 eGFR(CKD-EPI 2020) 34 mL/min L >60 Apr 06, 2023 11:39 AM [facility] CBC AND DIFF (AUTO) Specimen Type: BLOOD No comment entered. Ordering Provider: SOFI MANCERA Report Released Date/Time: Apr 05, 2023 04:18 PM Reporting Lab: [address] [address] Performing Lab: [address] [address] WBC 7.36 10*3/uL 4.50-11.00 RBC 4.36 10*6/uL 4.23-5.66 HGB 13.0 g/dL 12.8-17 HCT 40.9 39.2-50.4 MCV 93.8 fL 82-99 MCHC 31.8 g/dL 30.8-35.1 PLT 188 10*3/uL 140-360 RDW-CV 13.6 12.0-16.0 Tucker, Abs 0.63 10*3/uL 0.30-1.10 MCH 29.8 pg 26.2-32.6 Neut % 66.9 43.7-75.8 Lymph % 19.2 14.0-42.3 Tucker % 8.6 5.1-13.7 Eos % 4.6 0.4-6.8 Baso % 0.4 0.1-2.0 Neut, Abs 4.93 10*3/uL 2.20-7.60 Lymph, Abs 1.41 10*3/uL 1.00-3.20 Eos, Abs 0.34 10*3/uL 0.03-0.44 Baso, Abs 0.03 10*3/uL 0.01-0.13 Immature Gran % 0.3 0.0-0.7 Immature Gran, Abs 0.02 10*3/uL 0.00-0.06 Mar 23, 2023 02:03 PM [facility] HDL CHOLESTEROL Specimen Type: SERUM No comment entered. Ordering Provider: ALYCIA STEVENS Report Released Date/Time: Mar 14, 2023 10:53 AM Reporting Lab: [facility]ERRINFIRMARY LT[facility] HOSPITALTRN [place] [facility] [address] [facility] [address] Performing Lab: [facility]ENTERRCOMMUNITY HOSPITALN [place] [address] [address] HDL CHOLESTEROL 49 mg/dL 40-60 Mar 23, 2023 02:03 PM [facility]ITAL[facility] MICROALBUMIN CREATININE RATIO PANEL Specimen Type: URINE No comment entered. Ordering Provider: ALYCIA STEVENS Report Released Date/Time: Mar 14, 2023 10:53 AM Reporting Lab: [facility] CENTERRCOMMUNITY HOSPITALN [facility] HOSPITALUSETS [facility] [address] [facility] [address] Performing Lab: [facility] HOSPITALUSETS [address] [address] MICROALBUMIN/C REATININE RATIO 138.3 mg/g H 0-29.9 MICROALBUMIN,Q UANTITATIVE 17.1 mg/dL RR UNAVAIL CREATININE URINE 123.64 mg/dL Mar 23, 2023 02:03 PM [facility] FERRITIN Specimen Type: SERUM No comment entered. Ordering Provider: ALYCIA STEVENS Report Released Date/Time: Mar 14, 2023 10:53 AM Reporting Lab: [facility]ENTERRINFIRMARY [facility] HOSPITALTRN [place] [facility] [address] [facility] [address] Performing Lab: [facility]ITALUSETS [address] [address] FERRITIN 34 ng/mL 20-300 Mar 23, 2023 02:03 PM [facility]ITAL[facility] MAGNESIUM Specimen Type: SERUM No comment entered. Ordering Provider: ALYCIA STEVENS Report Released Date/Time: Mar 14, 2023 10:53 AM Reporting Lab: [facility] CENTERRCOMMUNITY HOSPITALN [facility]PITALUSETS [facility] [address] [facility] [address] Performing Lab: [facility]ENTERRL [place] [facility] [address] [facility] [address] MAGNESIUM 2.0 mg/dL 1.6-2.6 Mar 23, 2023 02:03 PM [facility]RL [facility]ERN [facility]ITALUS[facility] IRON & TIBC PANEL Specimen Type: SERUM No comment entered. Ordering Provider: ALYCIA STEVENS Report Released Date/Time: Mar 14, 2023 10:53 AM Reporting Lab: [facility]RL [place]N [place] [facility] [address] [facility] [address] Performing Lab: [facility]ENTERRINFIRMARY [facility]OSPITALTRN [place] [facility] [address] [facility] [address] TIBC 347 ug/dL 204-475 IRON 65 ug/dL 40-160 Transferrin Saturation 18.7 L 20.0-50.0 Mar 23, 2023 02:03 PM [facility]USEH[facility] CALCIUM Specimen Type: SERUM No comment entered. Ordering Provider: ALYCIA STEVENS Report Released Date/Time: Mar 14, 2023 10:53 AM Reporting Lab: [facility] CENTERRINFIRMARY LTAC HOSPITALTRN [facility]ITALUSETS [facility] [address] [facility] [address] Performing Lab: [facility]ENTERRINFIRMARY LTAC HOSPITALTRN [facility]ITALUSETS [facility] [address] [facility] [address] CALCIUM 9.1 mg/dL 8.5-10.2 Mar 23, 2023 02:03 PM [facility]OSPITALUSEHEN[facility] VITAMIN D (25-OH) Specimen Type: SERUM No comment entered. Ordering Provider: ALYCIA STEVENS Report Released Date/Time: Mar 14, 2023 10:53 AM Reporting Lab: [facility]RL [place]N [place] [facility] [address] [facility] [address] Performing Lab: [facility] CENTERRINFIRMARY LTAC HOSPITALTRN [facility] HOSPITALUSETS [address] [address] VITAMIN D (25-OH) 33 ng/mL 20-50 Mar 23, 2023 02:03 PM [facility]ITALUSEHEN[facility] CHOLESTEROL Specimen Type: SERUM No comment entered. Ordering Provider: ALYCIA STEVENS Report Released Date/Time: Mar 14, 2023 10:53 AM Reporting Lab: [facility] [place] [facility] [address] [facility] [address] Performing Lab: [facility] [place] [facility] [address] [facility] [address] CHOLESTEROL 138 mg/dL Mar 23, 2023 02:03 PM [facility] [place] [facility] PO4 Specimen Type: SERUM No comment entered. Ordering Provider: ALYCIA STEVENS Report Released Date/Time: Mar 14, 2023 10:53 AM Reporting Lab: [facility] [place] [facility] [address] [facility] [address] Performing Lab: [facility] [place] [facility] [address] [facility] [address] PO4 2.2 mg/dL L 2.5-5.0 Mar 23, 2023 02:03 PM [facility] [place] [facility] URIC ACID Specimen Type: SERUM No comment entered. Ordering Provider: ALYCIA STEVENS Report Released Date/Time: Mar 14, 2023 10:53 AM Reporting Lab: [facility] [place] [facility] [address] [facility] [address] Performing Lab: [facility] [place] [facility] [address] [facility] [address] URIC ACID 3.0 mg/dL L 3.5-7.2 Mar 23, 2023 02:03 PM [facility] [place] [facility] PTH INTACT Specimen Type: SERUM No comment entered. Ordering Provider: ALYCIA STEVENS Report Released Date/Time: Mar 14, 2023 10:53 AM Reporting Lab: [facility] [place] [facility] [address] [facility] [address] Performing Lab: [facility] [place] [facility] [address] [facility] [address] PTH INTACT 116.9 pg/mL H -Mar 23, 2023 02:03 PM [facility] [place] [facility] ALKALINE PHOSPHATASE Specimen Type: SERUM No comment entered. Ordering Provider: ALYCIA STEVENS Report Released Date/Time: Mar 14, 2023 10:53 AM Reporting Lab: [facility] [place] [facility] [address] [facility] [address] Performing Lab: [address] [address] ALKALINE PHOSPHATASE 74 U/L 40-150 Mar 23, 2023 02:03 PM [facility] CBC Specimen Type: BLOOD No comment entered. Ordering Provider: ALYCIA STEVENS Report Released Date/Time: Mar 14, 2023 10:53 AM Reporting Lab: [facility] [address] [facility] [address] Performing Lab: [address] [address] WBC 6.76 10*3/uL 4.50-11.00 RBC 4.44 10*6/uL 4.23-5.66 HGB 13.6 g/dL 12.8-17 HCT 41.6 39.2-50.4 MCV 93.7 fL 82-99 MCHC 32.7 g/dL 30.8-35.1 PLT 188 10*3/uL 140-360 RDW-CV 13.6 12.0-16.0 MCH 30.6 pg 26.2-32.6 Mar 23, 2023 02:03 PM [facility] BASIC METABOLIC PANEL (non-fasting) Specimen Type: SERUM No comment entered. Ordering Provider: ALYCIA STEVENS Report Released Date/Time: Mar 14, 2023 10:53 AM Reporting Lab: [address] [id number] Performing Lab: [address] [address] UREA NITROGEN 20 mg/dL 7-25 GLUCOSE 173 mg/dL H 65-100 SODIUM 144 mmol/L 135-145 POTASSIUM 4.7 mmol/L 3.5-5.0 CHLORIDE 111 mmol/L H 100-110 CO2 23 meq/L 20-30 CREATININE, Serum 1.96 mg/dL H 0.50-1.40 eGFR(CKD-EPI 2020) 33 mL/min L >60 Vital Signs: All taken on the encounter date This section contains inpatient and outpatient Vital Signs collected on the date of the Encounter. Date/Time Temperature Pulse Blood Pressure Respiratory Rate SP02 Pain Height Weight Body Mass Index Source Apr 05, 2023 11:10 AM 97.2 49 132/72 18 97 0 226.8 34 [facility] [place] [facility] Social History: Smoking Status (Most current) and Tobacco Use (All prior to encounter date) This section includes the most current, and the historical, smoking and tobacco- related health factors from the NH facility where the Encounter took place. Current Smoking Status This section includes the most current smoking, or tobacco-related health factor, from the NH facility where the Encounter took place. Date/Time Current Smoking Status Comment Facil ity Mar 30, 2022 11:00 AM VA-TOBACCO FORMER USER [facility] [place] [facility] Tobacco Use History This section includes a history of the smoking, or tobacco-related health factors, that were collected on or before the date of the Encounter. The data comes from the [place] facility where the Encounter took place. Date/Time Smoking Status/Tobacco Use Comment F acility Mar 30, 2022 11:00 AM VA-TOBACCO QUIT 15 YRS OR MORE [facility] [place] [facility] Mar 17, 2021 01:30 PM VA-TOBACCO FORMER USER [facility] [place] [facility] Mar 17, 2021 01:30 PM VA-TOBACCO NEVER USED [facility] [place] [facility] Mar 17, 2021 01:30 PM VA-TOBACCO QUIT 15 YRS OR MORE [facility] [place] [facility] Mar 31, 2020 10:30 AM VA-TOBACCO FORMER USER [facility] [place] [facility] Mar 31, 2020 10:30 AM VA-TOBACCO QUIT 15 YRS OR MORE [facility] [place] [facility] Nov 23, 2018 12:07 PM VA-TOBACCO FORMER USER [facility] [place] [facility] Nov 23, 2018 12:07 PM VA-TOBACCO QUIT 15 YRS OR MORE [facility] [place] [facility] Nov 22, 2017 10:02 AM VA-TOBACCO NEVER USED [facility] [place] [facility] Mar 14, 2017 09:31 AM LIFETIME NON-TOBACCO USER [facility] [place] [facility] Mar 01, 2016 02:51 PM LIFETIME NON-TOBACCO USER [facility] Feb 10, 2015 09:31 AM QUIT TOBACCO USE > 7 YEARS AGO quit in 1964 [facility] Encounter Notes: All associated encounter notes This section contains the clinical notes associated to the Encounter. Date/Time Encounter Note(s) Provider Source Apr 05, 2023 11:30 AM NEPHROLOGY E & M NOTE: LOCAL TITLE: NEPHROLOGY NOTE STANDARD TITLE: NEPHROLOGY E & M NOTE DATE OF NOTE: APR 05, 2023@11:30 ENTRY DATE: JULY 26, 2023@16:09:42 AUTHOR: ERIKA STEVENS COSIGNER: URGENCY: STATUS: COMPLETED Nephrology follow up History:82 year old male with a history of Stage 2 CKD , diabetes II, hyperlipidemia, hypertension, obesity, kidney stones and microhematuria presenting for evaluation and management of his renal disease and related problems. He denies chest pain,SOB, edema, rash or cough. He has no problems with his present medical regimen. Medications: Active and Recently Outpatient Medications (excluding Supplies): Active Outpatient Medications Status 1) ACCU-CHEK [...] MOUTH ONCE DAILY FOR VITAMIN SUPPLEMENTATION 5) FLUTICASONE PROP 50MCG 120D NASAL INHL INSTILL 2 ACTIVE SPRAYS INTO EACH NOSTRIL ONCE DAILY NEEDED FOR NASAL IRRITATION/INFLAMMATION 6) GLUCOSE 4GM CHEW TAB CHEW FOUR TABLETS BY MOUTH ONE ACTIVE TIME NEEDED FOR LOW BLOOD SUGAR 7) INSULIN,GLARGINE-YFGN 100UNIT/ML INJ INJECT 20 UNITS ACTIVE SUBCUTANEOUSLY AT BEDTIME FOR BLOOD SUGAR 8) MULTIVIT/OPHTH AREDS2/LUTE/ZEAX CAP/TAB TAKE 1 ACTIVE CAPSULE BY MOUTH TWICE DAILY IN THE MORNING AND EVENING, WITH FOOD 9) OMEPRAZOLE 20MG EC CAP TAKE ONE CAPSULE BY MOUTH ACTIVE EVERY DAY FOR STOMACH ACID 10) RIVAROXABAN 15MG TAB TAKE ONE TABLET BY MOUTH ONCE ACTIVE DAILY WITH DINNER 11) ROSUVASTATIN CA 20MG TAB TAKE ONE AND ONE-HALF ACTIVE TABLETS BY MOUTH ONCE DAILY FOR CHOLESTEROL 12) TAMSULOSIN HCL 0.4MG CAP TAKE TWO CAPSULES BY MOUTH ACTIVE AT BEDTIME Active Non-VA Medications Status 1) Non-VA METOPROLOL SUCCINATE 25MG SA TAB 25MG BY MOUTH ACTIVE EVERY DAY 13 Total Medications General: Short statured Obese male alert, cooperative in NAD HEENT: Neck/Throat: supple; no JVD; Lungs:clear Heart:RRR; no murmur/gallop Abdomen:+BS; slightly increased abdominal girth Ext:no edema; Assessment and Plans:CKD/hypertension Areas to address in the evaluation and management of the patient's CKD and to reduce renal disease progression is as follows: #1. CKD stage 3: the patient is without uremic sx. review of labs from Mar 23, 2023 showed a bicarb(23), normal potassium(4.7) and a creatinine was 1.96. His urine microalb/cr ratio was 138. His GFR was 33. No med changes. Will reassess in 6 months. #2. Hypertension:His most recent BP was 158/77 p=68. Systolic BP is higher than desired. Will recheck on return. no med changes. He is encouraged to take his meds as prescribed and to limit the salt in his diet. #3.Hypercholesterolemia: the patient chol was 138 this 04/05. with a HDL of 49. The patient is presently taking lipid lowering medications fish oil and atorvastatin). He is encouraged to adhere to a heart healthy low fat diet and take his statin as precribed. #4. Nutritional status: the patient has a normal albumin of 3.2. His weight 218. The patient is encouraged to limit his intake with a heart healthy low fat diet and to exercise. . 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 Will continue VitD supplements. #6. Anemia The patient's H/H was 13/42 with a mcv of 95 Oct. His TIBC was 347, iron of 65, ferritin of 34 and TSAT was 18.7. Will start FeSO4. will recheck his CBC and iron profile on retun. . # 7. Diabetes: the patient's HGbA1c was 6.4. The goal is <7.5. He will continue his diabetes medications( insulin) and adhere to a diabetic diet. This was a 20 minute visit > 50% of which was spent in counseling and coordination of care. Medication Reconciliation: Outpatient: Has the patient been taking medications as documented in the EMLR? YES: The patient has been taking medications as documented in the EMLR. Essential Medication List for Review used to complete this medication reconciliation. INCLUDED IN THIS LIST: Alphabetical list of active outpatient prescriptions [facility] this [facility] (local) and dispensed from another [facility] or [facility] facility (remote) as well as inpatient orders (local, pending and active), local clinic medications, locally documented non-VA medications, and local prescriptions that have or been discontinued in the past 90 days. - All changes in medications, including all non-VA/Herbal/OTC medications were entered into [facility]. /cas/ ERIKA STEVENS M.D. [employer] Signed: 07/26/2023 16:22 ERIKA STEVENS [facility]
--- NOTE | 2024-03-20 13:57 | MHC.PC.OV ---
Vital Signs 03/20/24 14:00 Height 5 ft 6 in Weight 211 lb 6 oz BMI 34.1 BP 110/66 Blood Pressure Location Lt brachial Position Sitting Pulse 59 Pulse Source Pulse Oximeter Pulse Oximetry (%) 98 Oxygen Delivery Method Room Air Intake Visit Reasons: TCM [facility] 03/15 R sided weakness Intake Note: Patient is here for hospital discharge and TCM follow up. Patient was discharged from [facility] on 03/15/24. 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: Present Accompanied by: Spouse Allergies metformin Allergy (Verified 03/20/24 14:37) Diarrhea Medication List - Last Reconciled 03/20/24 by Arsenio Freeman MD allopurinol 300 mg PO DAILY apixaban (Eliquis) 2.5 mg PO BID ascorbic acid (vitamin C) 500 mg PO DAILY aspirin 81 mg PO DAILY fluticasone propionate 50 mcg/actuation 2 sprays intranasal DAILY insulin glargine-yfgn 4 units subcut BEDTIME metoprolol tartrate 50 mg PO BID@0900,1700 ko-tsq-IL-vit S-rdnvcd-svujkdc 200 mcg-15 mcg- 5 mg-1 mg (PreserVision AREDS 2 Plus Multivit) 1 cap PO BID omeprazole 20 mg PO DAILY@0630 potassium citrate ER 5 mEq PO BID@0900,1700 rosuvastatin 30 mg PO DAILY@1700 semaglutide 0.25 mg subcut SA@0900 tamsulosin 0.8 mg PO BEDTIME trazodone 100 mg PO BEDTIME PRN Tobacco use date assessed: 03/20/24 Fall risk assessment: No Falls in past year Last assessed Fall Risk: 03/20/24 Dental Screening Dental Screen Date: 03/20/24 Did you have a dental visit in the last 12 months?: Yes Did you have a dental problem in the last 6 months where you did not have access to dental care?: No Was dental information given to patient?: Patient has dentist HPI TCM TCM Information Date of Discharge 03/15/24 Discharged From [facility] Interactive Contact Date (Reference documentation from this date) 03/19/24 HPI Comments History of Present Illness Details Patient presents to the office for a TCM visit. ? Date of admission:03/11/2024 Date of discharge:03/15/2024 This is a Follow-up from admission at [facility] HPI: 84-year-old male presents to the office for a TCM visit. Hospital Course/Discharge Summary: Patient was at [facility] for a right-sided CVA. This was confirmed on an MRI. Acute nonhemorrhagic small infarct in the deep white matter of the central frontal lobe. Subsequent testing was unremarkable. In addition patient had an elevated creatinine during the hospital which was coming down at the time of discharge. Discharged to/Current Location: Home Lives with: Diagnosis: Cerebrovascular accident Procedures performed: None New medications: Eliquis Discontinued medications: Xarelto Change medications/dosing: Pending labs: None Pending diagnostic test: None Any Follow-up Labs required? Basic metabolic panel. Patient reports that he will be getting it done at the [facility]. Any Follow-up Diagnostic test required? No How are you feeling? At baseline. Are you in any pain or discomfort? No Do you have any questions about your condition or discharge instructions? None Were you able to get your medications filled? Yes Do you have any questions about your medications? No Any referrals required? Patient has an appointment with speech therapy, physical therapy and neurologist. Were you able to schedule your follow-up appointment? Yes If home health was ordered, have they contact you? Any outpatient services, if so, are you scheduled? Are there any additional resources like transportation you might need during her recovery? ? - VNA? Yes - SANITATION OFFICER? No - Meals on wheels? No Educational need/resources: What support system do you have? Lives with and granddaughter and extended family. [employer] [facility] Medical History (Updated 03/12/24 @ 11:55 by Landon Dillon MD) Obesity Hyperlipidemia associated with type 2 diabetes mellitus Diabetes mellitus Insulin dependent type 2 diabetes mellitus A-fib Surgical History History of left knee replacement Family History (Updated 03/20/24 @ 14:05 by HEATHER Smart) Father No problems noted. Mother No problems noted. Other Substance use disorder Social History Household Members: Spouse Housing: House Do you presently have visiting nurse or other home services: No Alcohol intake: current Alcohol intake frequency: a few times a week Patient Tobacco Use Status: Never used Tobacco e-Cigarette/Vaping Use: Never Used Second Hand Smoke Exposure: No service: Yes Current occupational status: retired Cognitive needs: No Hearing needs: Yes (Hearing aide) Vision needs: Yes (Glasses) Questionnaire PHQ-9 Over the last 2 weeks, how often have you been bothered by any of the following problems? 1. Little interest or pleasure in doing things: not at all 2. Feeling down, depressed, or hopeless: not at all 3. Trouble falling or staying asleep, or sleeping too much: not at all 4. Feeling tired or having little energy: not at all 5. Poor appetite or overeating: not at all 6. Feeling bad about yourself - or that you are a failure or have let yourself or your family down: not at all 7. Trouble concentrating on things, such as reading the newspaper or watching television: not at all 8. Moving or speaking so slowly that other people could have noticed. Or the opposite - being so fidgety or restless that you have been moving around a lot more than usual: not at all 9. Thoughts that you would be better off or of hurting yourself in some way: not at all Total score: 0 Depression Screening Interpretation: Negative Depression Screening Done: Yes Source: Developed by Drs. Segun Chung, Yasmine Shepherd, Bhavin Ron and colleagues, with an educational crow from [employer]. Thrive Questionnaire Date Thrive assessed: 03/20/24 I am a: Patient What is your living situation today?: I have a steady place to live Within the past 12 months, did the food you bought not last and you didn't have the money to get more?: Never true Within the past 12 months, did you worry whether your food would run out before you got money to buy more?: Never true Do you have trouble paying for medicines?: No Do you have trouble getting transportation to medical appointments?: No Do you have trouble paying your heating and electricity bill?: No Do you have trouble taking care of your child, family member or friend?: No Do you have trouble with day-to-day activities such as bathing, preparing meals, shopping, managing finances, etc.?: No Are you currently unemployed and looking for a job?: No Are you interested in more education?: No Please select the resources that you would like help with: None Currently or been in a relationship where the following occur: No concerns reported THRIVE Score: 0 AUDIT C Alcohol Use Questionnaire (AUDIT-C) 1. How often do you have a drink containing alcohol?: Never Total Score: 0 FATUMA-7 AMB Questionnaire FATUMA-7 Date FATUMA - 7 assessed: 03/20/24 Feeling nervous, anxious, or on edge: 0 = Not at all Not being able to stop or control worryin = Not at all Worrying too much about different things: 0 = Not at all Trouble relaxin = Not at all Being so restless that it is hard to sit still: 0 = Not at all Becoming easily annoyed or irritable: 0 = Not at all Feeling afraid as if something awful might happen: 0 = Not at all Total FATUMA-7 score (0-4 normal; 5-9 mild; 10-14 moderate; 15-21 severe): 0 Source: Developed by Drs. Segun Chung, Yasmine Shepherd, Bhavin Ron and colleagues, with an educational crow from [employer]. Physical exam (Primary Care) Vital Signs: Last Vital Signs Pulse 59 03/20/24 14:00 BP 110/66 03/20/24 14:00 Pulse Ox 98 03/20/24 14:00 Oxygen Delivery Method Room Air 03/20/24 14:00 BMI result Body Mass Index 34.1 Tobacco/Smoking Status: Tobacco use Status Tobacco use date assessed 03/20/24 03/20/24 14:07 Patient Tobacco Use Status Never used Tobacco 03/20/24 14:07 e-Cigarette/Vaping Use Never Used 03/20/24 14:07 PHQ-9: PHQ-9 Score PHQ-9: Total score 0 03/20/24 14:07 Depression Screening Interpretation: Negative Thrive Assessment: Date of Thrive Assessment Date Thrive assessed 03/20/24 03/20/24 14:07 Currently or been in a relationship where the following occur: No concerns reported Const General: cooperative and healthy appearing Nutritional Appearance: well nourished Orientation/consciousness: patient oriented x3 Limitations: no limitations HENMT Head: Yes normal to inspection Eyes General: appearance normal, both eyes and all related structures Neck Neck: Yes normal visual inspection Chest Chest palpation & inspection: normal palpation of entire chest wall Resp Effort & Inspection: normal respiratory effort Neuro General: patient oriented x3 Coding Level of Care Code TCM Mod MDM <= 14 Days Complex EM visit Add On G2211 Diagnoses Acute CVA (cerebrovascular accident) I63.9 Assessment & Plan Assessment & Plan (1) Acute CVA (cerebrovascular accident): Code(s): I63.9 - Cerebral infarction, unspecified Category: Medical Plan: [facility] I have recommended that he needs to have repeat basic metabolic panel to check his kidney functions. He also has speech, physical therapy scheduled. Patient is considered to be a failure on Xarelto and Eliquis has been substituted. I instructed him to stop the Xarelto medications.
--- OUTSIDE RECORDS SUMMARY | 2024-03-20 13:57 | XMS_ITS ---
Author Name [facility] [place] [facility] [place] [facility] [place] Address [address] [place] [address] Care Team Providers Care Massage Coordinator Name Role Phone SOFI MANCERA Primary Care [...] [place] JONELLE TOWNSEND MEDEX CHARAN E Mar 13, 2015 [id number] VERONICA BROWN RT PATIENT MEDICARE ([place]NR) MEDICARE (M) PART B Aug 12, 2007 PART B [id number] VERONICA BROWN RT PATIENT MEDICARE ([place]) MEDICARE (M) PART A Jan 12, 2004 PART A [id number] VERONICA BROWN RT PATIENT Selected Encounter This section includes the information on record at [place] for the Encounter. Date/Time Encounter Type Encounter Description Reason Provider Source May 09, 2023 11:00 AM OFFICE O/P EST MOD 30 MIN RENAL/NEPHROL(EXCE PT DIALYSIS) ICD-10-CM E11.22 Type 2 diabetes mellitus w diabetic chronic kidney disease ALYCIA STEVENS N[place]ON Cisneros [facility] Encounter Template Text not used by [place] Assessments - Encounter Diagnoses This section includes the primary and secondary diagnoses documented for the Encounter. Date/Time Primary/Secondary Diagnosis Diagnosis Name Provider Source May 13, 2023 06:37 AM PRIMARY Type 2 diabetes mellitus w diabetic chronic kidney disease NEENA STEVENS [facility] [place] [facility] May 13, 2023 06:37 AM SECONDARY Chronic kidney disease, stage 3 unspecified NEENA STEVENS [facility] [place] [facility] May 13, 2023 06:37 AM SECONDARY Essential (primary) hypertension NEENA STEVENS [facility] [place] [facility] May 13, 2023 06:37 AM SECONDARY Other obesity NEENA STEVENS [facility] [place] [facility] May 13, 2023 06:37 AM SECONDARY Type 2 diabetes mellitus without complications NEENA STEVENS [facility] [place] [facility] Plan of Treatment: Future Appointments (+ 6 months) and Future Tests (+/- 45 days) The Plan of Treatment section includes [facility] the [facility] This section includes future appointments and future orders which are active, pending or scheduled. Future Appointments This section includes appointments that were scheduled to occur 6 months from the date of the Encounter, up to a maximum of 20 appointments. The data comes from all [place] treatment facilities. Appointment Date/Time Appointment Type Appointme nt Facility Name May 12, 2023 10:00 AM AMBULATORY - MEDICINE [facility] [place] [facility] May 15, 2023 11:20 AM AMBULATORY - MEDICINE [facility] [place] [facility] May 29, 2023 11:00 AM AMBULATORY - MEDICINE [facility] [place] [facility] Jul 05, 2023 03:00 PM AMBULATORY - MEDICINE [facility] [place] [facility] Jul 06, 2023 10:30 AM AMBULATORY - MEDICINE [facility] [place] [facility] August 02, 2023 02:30 PM AMBULATORY - MEDICINE [facility] [place] [facility] August 08, 2023 02:00 PM AMBULATORY - MEDICINE [facility] [place] [facility] Aug 23, 2023 10:30 AM AMBULATORY - REHAB MEDICIN E [facility] [place] [facility] Sep 01, 2023 11:30 AM [facility] [place] [facility] Sep 11, 2023 02:30 PM [facility] [place] Sep 15, 2023 10:30 AM [facility] Oct 02, 2023 09:30 AM [facility] Oct 04, 2023 10:00 AM AMBULAT[facility] Oct 11, 2023 09:00 AM [facility]AT[facility] Oct 18, 2023 10:00 AM [facility] Oct 30, 2023 09:00 AM AMBULATORY - MEDICINE [facility] [place] [facility] Nov 06, 2023 01:00 PM AMBULATORY - MEDICINE [facility] [place] [facility] Lab Results: +/- 30 days of the encounter This section includes the Chemistry and Hematology Lab Results on record with [place] for the patient. Radiology Reports and Pathology [...] Type: SERUM No comment entered. Ordering Provider: NEENA STEVENS Report Released Date/Time: Nov 01, 2022 09:00 PM Reporting Lab: [facility] [place] [facility] [address] [address] Performing Lab: [facility] [place] [facility] [address] [address] PO4 2.5 mg/dL 2.5-5.0 Apr 26, 2023 11:12 AM [facility] [place] [facility] PTH INTACT Specimen Type: SERUM No comment entered. Ordering Provider: NEENA STEVENS Report Released Date/Time: Nov 01, 2022 09:00 PM Reporting Lab: [facility] [place] [facility] [address] [address] Performing Lab: [facility] [place] [facility] [address] [address] PTH INTACT 118.5 pg/mL H 10-65 Apr 26, 2023 11:12 AM [facility] [place] [facility] URIC ACID Specimen Type: SERUM No comment entered. Ordering Provider: NEENA STEVENS Report Released Date/Time: Nov 01, 2022 09:00 PM Reporting Lab: [facility] [place] [facility] [address] [address] Performing Lab: [facility] [place] [facility] [address] [address] URIC ACID 3.1 mg/dL L 3.5-7.2 Apr 26, 2023 11:12 AM [facility] ALKALINE PHOSPHATASE Specimen Type: SERUM No comment entered. Ordering Provider: NEENA STEVENS Report Released Date/Time: Nov 01, 2022 09:00 PM Reporting Lab: [facility] [place] [facility] [address] [address] Performing Lab: [facility] [place] [facility] [address] [address] ALKALINE PHOSPHATASE 78 U/L 40-150 Apr 26, 2023 11:12 AM [facility] FERRITIN Specimen Type: SERUM No comment entered. Ordering Provider: NEENA STEVENS Report Released Date/Time: Nov 01, 2022 09:00 PM Reporting Lab: [facility] [place] [facility] [address] [address] Performing Lab: [facility] [place] [address] [address] FERRITIN 40 ng/mL 20-300 Apr 26, 2023 11:12 AM [facility] [place] [facility] MAGNESIUM Specimen Type: SERUM No comment entered. Ordering Provider: NEENA STEVENS Report Released Date/Time: Nov 01, 2022 09:00 PM Reporting Lab: [facility] [place] [facility] [address] [facility] [address] Performing Lab: [facility] [place] [facility] [address] [facility] [address] MAGNESIUM 2.0 mg/dL 1.6-2.6 Apr 26, 2023 11:12 AM [facility] [place] [facility] IRON & TIBC PANEL Specimen Type: SERUM No comment entered. Ordering Provider: NEENA STEVENS Report Released Date/Time: Nov 01, 2022 09:00 PM Reporting Lab: [facility] [place] [facility] [address] [address] Performing Lab: [facility] [place] [facility] [address] [address] TIBC 341 ug/dL 204-475 IRON 69 ug/dL 40-160 Transferrin Saturation 20.3 20.0-50.0 Apr 26, 2023 11:12 AM [facility] CALCIUM Specimen Type: SERUM No comment entered. Ordering Provider: NEENA STEVENS Report Released Date/Time: Nov 01, 2022 09:00 PM Reporting Lab: [facility] [place] [facility] [address] [facility] [address] Performing Lab: [facility] [place] [facility] [address] [facility] [address] CALCIUM 9.4 mg/dL 8.5-10.2 Apr 26, 2023 11:12 AM [facility] CBC Specimen Type: BLOOD No comment entered. Ordering Provider: NEENA STEVENS Report Released Date/Time: Nov 01, 2022 09:00 PM Reporting Lab: [facility] [place] [facility] [address] [facility] [address] Performing Lab: [facility] [place] [facility] [address] [facility] [address] WBC 8.31 10*3/uL 4.50-11.00 RBC 4.42 10*6/uL 4.23-5.66 HGB 13.2 g/dL 12.8-17 HCT 41.3 39.2-50.4 MCV 93.4 fL 82-99 MCHC 32.0 g/dL 30.8-35.1 PLT 196 10*3/uL 140-360 RDW-CV 14.3 12.0-16.0 MCH 29.9 pg 26.2-32.6 Apr 26, 2023 11:12 AM [facility] VITAMIN D (25-OH) Specimen Type: SERUM No comment entered. Ordering Provider: NEENA STEVENS Report Released Date/Time: Nov 01, 2022 09:00 PM Reporting Lab: [facility] [place] [facility] [address] [facility] [address] Performing Lab: [facility] [address] [address] VITAMIN D (25-OH) 36 ng/mL 20-50 Apr 26, 2023 11:12 AM [facility] CHOLESTEROL Specimen Type: SERUM No comment entered. Ordering Provider: NEENA STEVENS Report Released Date/Time: Nov 01, 2022 09:00 PM Reporting Lab: [facility] [place] [address] [address] Performing [facility]: [facility] [address] [address] CHOLESTEROL 131 mg/dL Apr 26, 2023 11:12 AM [facility] HDL CHOLESTEROL Specimen Type: SERUM No comment entered. Ordering Provider: NEENA STEVENS Report Released Date/Time: Nov 01, 2022 09:00 PM Reporting Lab: [facility] [place] [address] [address] Performing Lab: [facility] [address] [address] HDL CHOLESTEROL 49 mg/dL 40-60 Apr 26, 2023 11:12 AM [facility] MICROALBUMIN CREATININE RATIO PANEL Specimen Type: URINE No comment entered. Ordering Provider: NEENA STEVENS Report Released Date/Time: Nov 01, 2022 09:00 PM Reporting Lab: [facility] [address] [address] Performing Lab: [facility] [address] [address] MICROALBUMIN/C REATININE RATIO 129.2 mg/g H 0-29.9 MICROALBUMIN,Q UANTITATIVE 12.5 mg/dL RR UNAVAIL CREATININE URINE 96.73 mg/dL Apr 26, 2023 11:12 AM [facility] BASIC METABOLIC PANEL (non-fasting) Specimen Type: SERUM No comment entered. Ordering Provider: NEENA STEVENS Report Released Date/Time: Nov 01, 2022 09:00 PM Reporting Lab: [address] [address] Performing Lab: [address] [address] [facility]A NITROGEN 23 mg/dL 7-25 GLUCOSE 136 mg/dL H 65-100 SODIUM 140 mmol/L 135-145 POTASSIUM 4.7 mmol/L 3.5-5.0 CHLORIDE 109 mmol/L 100-110 CO2 25 meq/L 20-30 CREATININE, Serum 2.01 mg/dL H 0.50-1.40 eGFR(CKD-EPI 2020) 32 mL/min L >60 Vital Signs: All taken on the encounter date This section contains inpatient and outpatient Vital Signs collected on the date of the Encounter. Date/Time Temperature Pulse Blood Pressure Respiratory Rate SP02 Pain Height Weight Body Mass Index Source May 09, 2023 11:10 AM 97.8 57 150/82 18 96 0 223 33 [facility] Social History: Smoking Status (Most current) and Tobacco Use (All prior to encounter date) This section includes the most current, and the historical, smoking and tobacco- related health factors from the [place] facility where the Encounter took place. Current Smoking Status This section includes the most current smoking, or tobacco-related health factor, from the [place] facility where the Encounter took place. Date/Time Current Smoking Status Comment María Elena armijo Apr 26, 2023 10:00 AM VA-TOBACCO FORMER USER [facility] Tobacco Use History This section includes a history of the smoking, or tobacco-related health factors, that were collected on or before the date of the Encounter. The data comes from the [place] facility where the Encounter took place. Date/Time Smoking Status/Tobacco Use Comment F acility Apr 26, 2023 10:00 AM VA-TOBACCO QUIT 15 YRS OR MORE [facility] [place] [facility] Mar 30, 2022 11:00 AM VA-TOBACCO FORMER USER [facility] [place] [facility] Mar 30, 2022 11:00 AM VA-TOBACCO QUIT 15 YRS OR MORE [facility] [place] [facility] Mar 17, 2021 01:30 PM VA-TOBACCO FORMER USER [facility] [place] [facility] Mar 17, 2021 01:30 PM VA-TOBACCO NEVER USED [facility] [place] [facility] Mar 17, 2021 01:30 PM VA-TOBACCO QUIT 15 YRS OR MORE [facility] [place] [facility] Mar 31, 2020 10:30 AM VA-TOBACCO FORMER USER [facility] [place] [facility] Mar 31, 2020 10:30 AM VA-TOBACCO QUIT 15 YRS OR MORE [facility] [place] [facility] Nov 23, 2018 12:07 PM VA-TOBACCO FORMER USER [facility] [place] [facility] Nov 23, 2018 12:07 PM VA-TOBACCO QUIT 15 YRS OR MORE [facility] [place] [facility] Nov 22, 2017 10:02 AM VA-TOBACCO NEVER USED [facility] [place] [facility] Mar 14, 2017 09:31 AM LIFETIME NON-TOBACCO USER [facility] [place] [facility] Mar 01, 2016 02:51 PM LIFETIME NON-TOBACCO USER [facility] [place] [facility] Feb 10, 2015 09:31 AM QUIT TOBACCO USE > 7 YEARS AGO quit in 1964 [facility] [place] [facility] Encounter Notes: All associated encounter notes This section contains the clinical notes associated to the Encounter. Date/Time Encounter Note(s) Provider Source May 09, 2023 11:02 AM NEPHROLOGY E & M NOTE: LOCAL TITLE: NEPHROLOGY NOTE STANDARD TITLE: NEPHROLOGY E & M NOTE DATE OF NOTE: MAY 09, 2023@11:02 ENTRY DATE: MAY 09, 2023@11:02:57 AUTHOR: ERIKA STEVENS COSIGNER: URGENCY: STATUS: COMPLETED Nephrology Note Follow-Up Consultation Problem:Chronic kidney Disease Stage 3 History:83 year old male with a history of [...] MOUTH ONCE ACTIVE DAILY FOR GOUT 3) FERROUS GLUCONATE 324MG TAB TAKE ONE TABLET BY MOUTH ACTIVE ONCE DAILY TO SUPPLEMENT IRON 4) FLUTICASONE PROP 50MCG 120D NASAL INHL INSTILL 2 ACTIVE SPRAYS INTO EACH NOSTRIL ONCE DAILY NEEDED FOR NASAL IRRITATION/INFLAMMATION 5) INSULIN,GLARGINE-YFGN 100UNIT/ML INJ INJECT 20 UNITS ACTIVE SUBCUTANEOUSLY AT BEDTIME FOR BLOOD SUGAR 6) MULTIVIT/OPHTH AREDS2/LUTE/ZEAX CAP/TAB TAKE 1 ACTIVE CAPSULE BY MOUTH TWICE DAILY IN THE MORNING AND EVENING, WITH FOOD 7) OMEPRAZOLE 20MG EC CAP TAKE ONE CAPSULE BY MOUTH ACTIVE EVERY DAY FOR STOMACH ACID 8) POTASSIUM CITRATE 5MEQ SA TAB TAKE TWO TABLETS BY ACTIVE MOUTH EVERY MORNING AND TAKE ONE TABLET EVERY EVENING FOR RENAL TUBULAR ACIDOSIS 9) RIVAROXABAN 15MG TAB TAKE ONE TABLET BY MOUTH ONCE ACTIVE DAILY WITH DINNER 10) ROSUVASTATIN CA 20MG TAB TAKE ONE AND ONE-HALF ACTIVE TABLETS BY MOUTH AT BEDTIME FOR CHOLESTEROL 11) TAMSULOSIN HCL 0.4MG CAP TAKE TWO CAPSULES BY MOUTH ACTIVE AT BEDTIME Inactive Outpatient Medications Status 1) CARBOXYMETHYLCELLULOSE NA 0.5% OPH SOLN INSTILL 1 DROP INTO EACH EYE FOUR TIMES DAILY NEEDED FOR DRY EYE 2) CHOLECALCIF 25MCG (D3-1,000UNIT) TAB TAKE ONE TABLET BY MOUTH ONCE DAILY FOR VITAMIN SUPPLEMENTATION 3) ROSUVASTATIN CA 20MG TAB TAKE ONE AND ONE-HALF TABLETS BY MOUTH ONCE DAILY FOR CHOLESTEROL Active Non-VA Medications Status 1) Non-VA METOPROLOL SUCCINATE 25MG SA TAB 25MG BY MOUTH ACTIVE EVERY DAY 15 Total Medications General: Short statured Obese male [...] without uremic sx. review of labs from Apr 26, 2023 showed a bicarb(26), normal potassium(4.7) and a creatinine was 1.77 has increased to 2.01. His urine microalb/cr ratio was 172(11/02) has dropped to 129. His GFR was 37 is now 32. Will recheck creatinine and GFR on return to determine the trend. No med changes. Will reassess in 6 months. #2. Hypertension:His most recent BP was 150/82 p=57. Systolic BP is higher than desired. Will recheck on return. no med changes. He is encouraged to take his meds as prescribed and to limit the salt in his diet. #3.Hypercholesterolemia: the patient chol was 131 this Apr with a HDL of 49. The patient is presently taking lipid lowering medications fish oil and atorvastatin. He is encouraged to adhere to a heart healthy low fat diet and take his statin as precribed. #4. Nutritional status: the patient has a normal albumin of 3.2(04/04). His weight 218 is now 223. The patient is encouraged to limit his intake with a heart healthy low fat diet and to exercise. . #5. CK-MBD: The patient's updated bone studies showed: calcium(9.4), mag(2.0), PO4(7.8), PTH(119), VitD(36) and alkaline Phos was 78. VitD improved since starting VitD supplements. #6. Anemia The patient's H/H was 13.2/41.3 with a mcv of 93 Feb . His TIBC was 341, iron of 69, ferritin of 40 and TSAT was 20.3. His iron studies are not better. He states he has been taking the FeSO4 which the patient is encouraged to continue. Will add ascorbic acid to improve the iron uptake. # 7. Diabetes: the patient's HGbA1c was [...] of active outpatient prescriptions dispensed from this [place] (local) and dispensed from another [place] or [facility] facility (remote) as well as inpatient orders (local, pending and active), local clinic medications, locally documented non-VA medications, and local prescriptions that have or been discontinued in the past 90 days. - All changes in medications, including all non-VA/Herbal/OTC medications were entered into [facility]. /cas/ ERIKA STEVENS M.D. 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
--- OUTSIDE RECORDS SUMMARY | 2024-03-20 13:57 | XMS_ITS ---
Author Name [facility] [place] Organization [facility] [place] [facility] [place] Address [address] [place] [address] Care Team Providers Care Human Resources Vice President Name Role Phone NERI MANCERA Primary Care Provider Unavailrj haque Insurance [...] [employer] CHARAN Haque Mar 13, 2015 [id number] VERONICA BROWN RT PATIENT MEDICARE (WNR) MEDICARE (M) PART B Aug 12, 2007 PART B [id number] VERONICA BROWN RT PATIENT MEDICARE (WNR) MEDICARE (M) PART A Jan 12, 2004 PART A [id number] VERONICA BROWN RT PATIENT Selected Encounter This section includes the information on record at [place] for the Encounter. Date/Time Encounter Type Encounter Description Reason Pro vider Source May 05, 2023 11:51 AM Outpatient Encounter ADMIN PAT ACTIVTIES (MASNONCT) IHE Encounter Template Text not used by [place] Plan of Treatment: Future Appointments (+ 6 months) and Future Tests (+/- 45 days) The Plan of Treatment section includes future care activities for the patient from [place] This section includes future appointments and future orders which are active, pending or scheduled. Future Appointments This section includes appointments that were scheduled to occur 6 months from the date of the Encounter, up to a maximum of 20 appointments. The data comes from all [place] treatment facilities. Appointment Date/Time Appointment Type Appointme nt Facility Name May 09, 2023 11:00 AM [facility]IC[facility] [place] [facility] May 12, 2023 10:00 AM [facility]IC[facility] [place] [facility] May 15, 2023 11:20 AM AM[facility]ULATORY [facility] MEDICINE [facility] [place] [facility] May 29, 2023 11:00 AM AM[facility]ULATORY [facility] MEDICINE [facility] [place] [facility] Jul 05, 2023 03:00 PM AMBULATORY - MEDICINE [facility] [place] [facility] Jul 06, 2023 10:30 AM AM[facility]ULATORY [facility] MEDICINE [facility] [place] [facility] August 02, 2023 02:30 PM AMBULATORY [facility] MEDICINE [facility] [place] [facility] August 08, 2023 02:00 PM AM[facility]ULATORY [facility] MEDICINE [facility] [place] [facility] Aug 23, 2023 10:30 AM AMBULATORY - REHAB MEDICIN E [facility] [place] [facility] Sep 01, 2023 11:30 AM AM[facility]ULATORY [facility] MEDICINE [facility] [place] [facility] Sep 11, 2023 02:30 PM AMBULATORY - MEDICINE [facility] [place] [facility] Sep 15, 2023 10:30 AM AMBULATORY [facility] MEDICINE [facility] [place] [facility] Oct 02, 2023 09:30 AM AMBULATORY [facility] MEDICINE [facility] [place] [facility] Oct 04, 2023 10:00 AM AMBULATORY - MEDICINE [facility] [place] [facility] Oct 11, 2023 09:00 AM AMBULATORY [facility] MEDICINE [facility] [place] [facility] Oct 18, 2023 10:00 AM AMBULATORY [facility] MEDICINE [facility] [place] [facility] Oct 30, 2023 09:00 AM [facility] Lab Results: +/- 30 days of the encounter This section includes the Chemistry and Hematology Lab Results on record with [place] for the patient. Radiology Reports and Pathology Reports are provided separately, in subsequent sections. Lab Results This section contains the Chemistry/Hematology Results that were resulted 30 days before or 30 daysafter the date of the Encounter. Date/Time Source Result Type Result - Unit Interpretation Reference Range Comment Apr 26, 2023 11:12 AM [facility] PO4 Specimen Type: SERUM No comment entered. Ordering Provider: ALYCIA STEVENS Report Released Date/Time: Nov 01, 2022 09:00 PM Reporting Lab: [facility]TR[facility] [address] [address] Performing Lab: [facility]ITALTR[facility] [address] [address] PO4 2.5 mg/dL 2.5-5.0 Apr 26, 2023 11:12 AM [facility] PTH INTACT Specimen Type: SERUM No comment entered. Ordering Provider: ALYCIA STEVENS Report Released Date/Time: Nov 01, 2022 09:00 PM Reporting Lab: [facility] [place] [address] [address] Performing Lab: [facility]TR[facility] [address] [address] PTH INTACT 118.5 pg/mL H 10-65 Apr 26, 2023 11:12 AM [facility] URIC ACID Specimen Type: SERUM No comment entered. Ordering Provider: ALYCIA STEVENS Report Released Date/Time: Nov 01, 2022 09:00 PM Reporting Lab: [facility]ITALTRN [facility] [address] [address] Performing Lab: [facility]TR[facility] [address] [address] URIC ACID 3.1 mg/dL L 3.5-7.2 Apr 26, 2023 11:12 AM [facility] ALKALINE PHOSPHATASE Specimen Type: SERUM No comment entered. Ordering Provider: ALYCIA STEVENS A Report Released Date/Time: Nov 01, 2022 09:00 PM Reporting Lab: [facility] [place] [facility] [address] [address] Performing Lab: [facility] [place] [facility] [address] [address] ALKALINE PHOSPHATASE 78 U/L 40-150 Apr 26, 2023 11:12 AM [facility] FERRITIN Specimen Type: SERUM No comment entered. Ordering Provider: ALYCIA STEVENS A Report Released Date/Time: Nov 01, 2022 09:00 PM Reporting Lab: [facility] [place] [address] [address] Performing Lab: [facility]ERH[facility] SYSTEMN [facility] [address] [address] FERRITIN 40 ng/mL 20-300 Apr 26, 2023 11:12 AM [facility] MAGNESIUM Specimen Type: SERUM No comment entered. Ordering Provider: ALYCIA STEVENS Report Released Date/Time: Nov 01, 2022 09:00 PM Reporting Lab: [facility]ITALTRN [facility] [address] [address] Performing Lab: [facility]ITALTRN [facility] [address] [address] MAGNESIUM 2.0 mg/dL 1.6-2.6 Apr 26, 2023 11:12 AM [facility] CALCIUM Specimen Type: SERUM No comment entered. Ordering Provider: ALYCIA STEVENS Report Released Date/Time: Nov 01, 2022 09:00 PM Reporting Lab: [facility]OS[facility]ITALTRN [facility] [address] [address] Performing Lab: [facility]OS[facility]ITALTRN [facility] [address] [address] CALCIUM 9.4 mg/dL 8.5-10.2 Apr 26, 2023 11:12 AM [facility] IRON & TIBC PANEL Specimen Type: SERUM No comment entered. Ordering Provider: ALYCIA STEVENS A Report Released Date/Time: Nov 01, 2022 09:00 PM Reporting Lab: [facility]L TRN [facility] [address] [address] Performing Lab: [place] [facility] [place] [facility] [address] [address] TIBC 341 ug/dL 204-475 IRON 69 ug/dL 40-160 Transferrin Saturation 20.3 20.0-50.0 Apr 26, 2023 11:12 AM [facility] VITAMIN D (25-OH) Specimen Type: SERUM No comment entered. Ordering Provider: ALYCIA STEVENS Report Released Date/Time: Nov 01, 2022 09:00 PM Reporting Lab: [facility] [place] [facility] [address] [address] Performing Lab: [facility]ERH[facility]N [facility] [address] [address] VITAMIN D (25-OH) 36 ng/mL 20-50 Apr 26, 2023 11:12 AM [facility] CHOLESTEROL Specimen Type: SERUM No comment entered. Ordering Provider: ALYCIA STEVENS Report Released Date/Time: Nov 01, 2022 09:00 PM Reporting Lab: [facility]N [facility] [address] [address] Performing Lab: [facility] TRN [facility] [address] [address] CHOLESTEROL 131 mg/dL Apr 26, 2023 11:12 AM [facility]ERH[facility]N [facility]USE[facility] CBC Specimen Type: BLOOD No comment entered. Ordering Provider: ALYCIA STEVENS Report Released Date/Time: Nov 01, 2022 09:00 PM Reporting Lab: [facility] [address] [address] Performing Lab: [facility] [address] [address] WBC 8.31 10*3/uL 4.50-11.00 RBC 4.42 10*6/uL 4.23-5.66 HGB 13.2 g/dL 12.8-17 HCT 41.3 39.2-50.4 MCV 93.4 fL 82-99 MCHC 32.0 g/dL 30.8-35.1 PLT 196 10*3/uL 140-360 RDW-CV 14.3 12.0-16.0 MCH 29.9 pg 26.2-32.6 Apr 26, 2023 11:12 AM [facility] HDL CHOLESTEROL Specimen Type: SERUM No comment entered. Ordering Provider: ALYCIA STEVENS A Report Released Date/Time: Nov 01, 2022 09:00 PM Reporting Lab: [address] [address] Performing Lab: [address] [address] HDL CHOLESTEROL 49 mg/dL 40-60 Apr 26, 2023 11:12 AM [facility] MICROALBUMIN CREATININE RATIO PANEL Specimen Type: URINE No comment entered. Ordering Provider: ALYCIA STEVENS A Report Released Date/Time: Nov 01, 2022 09:00 PM Reporting Lab: [address] [address] Performing Lab: [address] [address] MICROALBUMIN/C REATININE RATIO 129.2 mg/g H 0-29.9 MICROALBUMIN,Q UANTITATIVE 12.5 mg/dL RR UNAVAIL CREATININE URINE 96.73 mg/dL Apr 26, 2023 11:12 AM [facility] BASIC METABOLIC PANEL (non-fasting) Specimen Type: SERUM No comment entered. Ordering Provider: ALYCIA STEVENS Report Released Date/Time: Nov 01, 2022 09:00 PM Reporting Lab: [address] [address] Performing Lab: [address] [address] UREA NITROGEN 23 mg/dL 7-25 GLUCOSE 136 mg/dL H 65-100 SODIUM 140 mmol/L 135-145 POTASSIUM 4.7 mmol/L 3.5-5.0 CHLORIDE 109 mmol/L 100-110 CO2 25 meq/L 20-30 CREATININE, Serum 2.01 mg/dL H 0.50-1.40 eGFR(CKD-EPI 2020) 32 mL/min L >60 Apr 06, 2023 11:39 AM [facility] LIVER FUNCTION Specimen Type: SERUM No comment entered. Ordering Provider: NERI MANCERA Report Released Date/Time: Apr 05, 2023 04:18 PM Reporting Lab: [address] [address] Performing Lab: [address] [address] PROTEIN,TOTAL 6.3 g/dL 6.0-8.3 ALBUMIN 3.6 g/dL 3.5-5.0 ALKALINE PHOSPHATASE 70 U/L 40-150 AST 14 U/L 5-34 ALT 10 U/L BILIRUBIN, TOTAL 0.5 mg/dL 0.2-1.2 Apr 06, 2023 11:39 AM [facility] TSH Specimen Type: SERUM No comment entered. Ordering Provider: NERI MANCERA Report Released Date/Time: Apr 05, 2023 04:18 PM Reporting Lab: [address] [address] Performing Lab: [address] [address] TSH 1.33 u[IU]/mL 0.35-5.00 Apr 06, 2023 11:39 AM [facility] LIPID PANEL FASTING Specimen Type: SERUM No comment entered. Ordering Provider: NERI MANCERA Report Released Date/Time: Apr 05, 2023 04:18 PM Reporting Lab: [address] [address] Performing Lab: [address] [address] CHOLESTEROL 142 mg/dL TRIGLYCERIDE 118 mg/dL 0-150 LDL calculated 65 mg/dL 0-129 CHOL/HDL 2.7 HDL CHOLESTEROL 53 mg/dL 40-60 Apr 06, 2023 11:39 AM [facility] HEMOGLOBIN A1C PANEL Specimen Type: BLOOD Comment: Values obtained from A1C measurements can vary. For atypical A1C assays, a reported value of 7.0 could actually be between 6.72 and 7.28 if measured by a reference method. A reported value of 9.0 could actually be between 8.73 and 9.27. Ref: http://www.ngs p.org/CAPdata. asp Ordering Provider: NERI MANCERA Report Released Date/Time: Apr 05, 2023 04:18 PM Reporting Lab: [facility] [address] [address] Performing Lab: [address] [address] HEMOGLOBIN A1C 6.4 H 4.0-5.6 Apr 06, 2023 11:39 AM [facility] MICROALBUMIN CREATININE RATIO PANEL Specimen Type: URINE No comment entered. Ordering Provider: NERI MANCERA Report Released Date/Time: Apr 05, 2023 04:18 PM Reporting Lab: [facility] [address] [address] Performing Lab: [facility] [address] MICROALBUMIN/C REATININE RATIO 130.6 mg/g H 0-29.9 MICROALBUMIN,Q UANTITATIVE 12.8 mg/dL RR UNAVAIL CREATININE URINE 97.99 mg/dL Apr 06, 2023 11:39 AM [facility] URIC ACID Specimen Type: SERUM No comment entered. Ordering Provider: NERI MANCERA Report Released Date/Time: Apr 05, 2023 04:19 PM Reporting Lab: [address] [address] Performing Lab: [address] [address] URIC ACID 2.9 mg/dL L 3.5-7.2 Apr 06, 2023 11:39 AM [facility] URINALYSIS CLEAN CATCH Specimen Type: URINE Comment: If Glucose = >500 and Ketones are positive, please alert the Physician. Ordering Provider: NERI MNACERA Report Released Date/Time: Apr 05, 2023 04:18 PM Reporting Lab: [address] [address] Performing Lab: [address] [address] UA COLOR Light-Yellow Yellow UA APPEARANCE Clear Clear UA GLUCOSE NEGATIVE mg/dL Negative UA KETONES NEGATIVE mg/dL Negative UA BLOOD NEGATIVE mg/dL Negative UA PROTEIN 20 mg/dL Negative UA NITRITE NEGATIVE mg/dL Negative UA BILIRUBIN NEGATIVE mg/dL Negative UA SPECIFIC GRAVITY 1.017 1.016-1.02 2 UA pH 6.0 5.0-9.0 UA UROBILINOGEN <2.0 mg/dL <2.0 UA LEUKOCYTE NEGATIVE Negative Apr 06, 2023 11:39 AM [facility] BASIC METABOLIC PANEL (fasting) Specimen Type: SERUM No comment entered. Ordering Provider: NERI MANCERA Report Released Date/Time: Apr 05, 2023 04:18 PM Reporting Lab: [address] [address] Performing Lab: [address] [address] UREA NITROGEN 23 mg/dL 7-25 GLUCOSE 163 mg/dL H 65-100 SODIUM 140 mmol/L 135-145 POTASSIUM 4.7 mmol/L 3.5-5.0 CHLORIDE 108 mmol/L 100-110 CO2 23 meq/L 20-30 CREATININE, Serum 1.90 mg/dL H 0.50-1.40 eGFR(CKD-EPI 2020) 34 mL/min L >60 Apr 06, 2023 11:39 AM [facility] CBC AND DIFF (AUTO) Specimen Type: BLOOD No comment entered. Ordering Provider: NERI MANCERA Report Released Date/Time: Apr 05, 2023 04:18 PM Reporting Lab: [address] [address] Performing Lab: [address] [address] WBC 7.36 10*3/uL 4.50-11.00 RBC 4.36 10*6/uL 4.23-5.66 HGB 13.0 g/dL 12.8-17 HCT 40.9 39.2-50.4 MCV 93.8 fL 82-99 MCHC 31.8 g/dL 30.8-35.1 PLT 188 10*3/uL 140-360 RDW-CV 13.6 12.0-16.0 Tyler, Abs 0.63 10*3/uL 0.30-1.10 MCH 29.8 pg 26.2-32.6 Neut % 66.9 43.7-75.8 Lymph % 19.2 14.0-42.3 Tyler % 8.6 5.1-13.7 Eos % 4.6 0.4-6.8 Baso % 0.4 0.1-2.0 Neut, Abs 4.93 10*3/uL 2.20-7.60 Lymph, Abs 1.41 10*3/uL 1.00-3.20 Eos, Abs 0.34 10*3/uL 0.03-0.44 Baso, Abs 0.03 10*3/uL 0.01-0.13 Immature Gran % 0.3 0.0-0.7 Immature Gran, Abs 0.02 10*3/uL 0.00-0.06 Social History: Smoking Status (Most current) and Tobacco Use (All prior to encounter date) This section includes the most current, and the historical, smoking and tobacco- related health factors from the [place] facility where the Encounter took place. Current Smoking Status This section includes the most current smoking, or tobacco-related health factor, from the [place] facility where the Encounter took place. Date/Time Current Smoking Status Comment Facil ity Apr 26, 2023 10:00 AM [place]-TOBACCO FORMER USER [facility] Tobacco Use History This section includes a history of the smoking, or tobacco-related health factors, that were collected on or before the date of the Encounter. The data comes from the [place] facility where the Encounter took place. Date/Time Smoking Status/Tobacco Use Comment F acility Apr 26, 2023 10:00 AM [place]-TOBACCO QUIT 15 YRS OR MORE [facility] Mar 30, 2022 11:00 AM [place]-TOBACCO FORMER USER [facility] [place] [facility] Mar 30, 2022 11:00 AM [place]-TOBACCO QUIT 15 YRS OR MORE [facility] [place] [facility] Mar 17, 2021 01:30 PM [place]-TOBACCO FORMER USER [facility] [place] [facility] Mar 17, 2021 01:30 PM VA-TOBACCO NEVER USED [facility] [place] [facility] Mar 17, 2021 01:30 PM VA-TOBACCO QUIT 15 YRS OR MORE [facility] [place] [facility] Mar 31, 2020 10:30 AM [place]-TOBACCO FORMER USER [facility] [place] [facility] Mar 31, 2020 10:30 AM VA-TOBACCO QUIT 15 YRS OR MORE [facility] [place] [facility] Nov 23, 2018 12:07 PM VA-TOBACCO FORMER USER [facility] [place] [facility] Nov 23, 2018 12:07 PM VA-TOBACCO QUIT 15 YRS OR MORE [facility] [place] [facility] Nov 22, 2017 10:02 AM VA-TOBACCO NEVER USED [facility] [place] [facility] Mar 14, 2017 09:31 AM LIFETIME NON-TOBACCO USER [facility] [place] [facility] Mar 01, 2016 02:51 PM LIFETIME NON-TOBACCO USER [facility] [place] [facility] Feb 10, 2015 09:31 AM QUIT TOBACCO USE > 7 YEARS AGO quit in 1965 [place] [facility] [place] [facility] Encounter Notes: All associated encounter notes This section contains the clinical notes associated to the Encounter. Date/Time Encounter Note(s) Provider Source May 05, 2023 11:51 AM ADMINISTRATIVE NOT E: LOCAL TITLE: CCC: SCHEDULING ADMINISTRATION STANDARD TITLE: ADMINISTRATIVE NOTE DATE OF NOTE: MAY 05, 2023@11:51:08 ENTRY DATE: MAY 05, 2023@11:51:08 AUTHOR: THEODORE JASMINE COSIGNER: URGENCY: STATUS: COMPLETED CCC: SCHEDULING ADMINISTRATION Has ADDENDA Patient Demographics Patient Name: JACQUELYN BROWN Patient Primary Phone: [phone] Patient Primary Address: [address] [place] [id number] Patient : 1940 Patient Age: 83 Caller/Recipient Relation to Patient: Self Administrative Administrative Note Reason: Medication Renewal Medications Refill/Renewal Request: Rx #[id number] - ROSUVASTATIN CA 20MG TAB Administrative Note Comments: Pt. requests refill/renewal of medication/s listed above. /cas/ THEODORE VELASQUEZ [facility] Signed: 05/05/2023 11:51 Receipt Acknowledged By: 05/05/2023 11:57 /es/ Jeanette Garcia RN, BSN Primary Care 05/05/2023 17:09 /cas/ Neri Mancera MD Staff Physician 05/05/2023 ADDENDUM STATUS: COMPLETED Done. /cas/ Neri Mancera MD Staff Physician Signed: 05/05/2023 17:09 [facility] JASMINE [facility]
--- OUTSIDE RECORDS SUMMARY | 2024-03-20 13:57 | XMS_ITS ---
Author Name [facility] [place] [facility] [place] [facility] [place] Address [address] [place] [address] Care Team Providers Care Sales Counselor Name Role Phone SOFI MANCERA Primary Care [...] [facility] MEDEX CHARAN E Mar 13, 2015 [id number] VERONICA BROWN RT PATIENT MEDICARE (WNR) MEDICARE (M) PART B Aug 12, 2007 PART B [id number] VERONICA BROWN RT PATIENT MEDICARE (WNR) MEDICARE (M) PART A Jan 12, 2004 PART A [id number] VERONICA BROWN RT PATIENT Selected Encounter This section includes the information on record at [place] for the Encounter. Date/Time Encounter Type Encounter Description Reason Provider Source Apr 24, 2023 11:30 AM COMPRE OPH EXAM EST PT 1/> OPTOMETRY ICD-10-CM 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, right eye, with inact chrdl neovas DALLIN MASON Encounter Template Text not used by [facility] Assessments - Encounter Diagnoses This section includes the primary and secondary diagnoses documented for the Encounter. 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 mclr degn, right eye, with inact chrdl neoBAYLEE Bassett [place] [facility] [place] [facility] May 10, 2023 01:21 PM SECONDARY Presence of intraocular lens BAYLEE MASON [place] [facility] [place] [facility] May 10, 2023 01:21 PM SECONDARY Type 2 diabetes mellitus without complications BAYLEE MASON [place] [facility] [facility] [place] [facility] Plan of Treatment: Future Appointments (+ 6 months) and Future Tests (+/- 45 days) The Plan of Treatment section includes future care activities for the patient from all [place] treatmentfacilities. This section includes future appointments and future orders which are active, pending or scheduled. Future Appointments This section includes appointments that were scheduled to occur 6 months from the date of the Encounter, up to a maximum of 20 appointments. The data comes from all [place] treatment facilities. Appointment Date/Time Appointment Type Appointme nt Facility Name Apr 26, 2023 10:00 AM AMBULATORY - MEDICINE [place] [facility] [place] [facility] Apr 26, 2023 11:00 AM AMBULATORY - MEDICINE [place] [facility] [place] [facility] May 09, 2023 11:00 AM AMBULATORY - MEDICINE [place] [facility] [place] [facility] May 12, 2023 10:00 AM AMBULATORY - MEDICINE [place] [facility] [facility] May 15, 2023 11:20 AM AMBULATORY - MEDICINE [place] [facility] [facility] May 29, 2023 11:00 AM AMBULATORY - MEDICINE [place] [facility] [facility] Jul 05, 2023 03:00 PM AMBULATORY - MEDICINE [place] [facility] [facility] Jul 06, 2023 10:30 AM AMBULATORY - MEDICINE [place] [facility] [facility] August 02, 2023 02:30 PM AMBULATORY - MEDICINE [place] [facility] [place] [facility] August 08, 2023 02:00 PM AMBULATORY - MEDICINE [place] [facility] [place] [facility] Aug 23, 2023 10:30 AM AMBULATORY - REHAB MEDICIN E [place] [facility] [place] [facility] Sep 01, 2023 11:30 AM AMBULATORY - MEDICINE [place] [facility] [place] [facility] Sep 11, 2023 02:30 PM AMBULATORY - MEDICINE [place] [facility] [facility] Sep 15, 2023 10:30 AM AMBULATORY - MEDICINE [place] [facility] [facility] Oct 02, 2023 09:30 AM AMBULATORY - MEDICINE [place] [facility] [place] [facility] Oct 04, 2023 10:00 AM AMBULATORY - MEDICINE [place] [facility] [facility] Oct 11, 2023 09:00 AM AMBULATORY - MEDICINE [place] [facility] [place] [facility] Oct 18, 2023 10:00 AM AMBULATORY - MEDICINE [place] [facility] [place] [facility] Lab Results: +/- 30 days of the encounter This section includes the Chemistry and Hematology Lab Results on record with [place] for the patient. Radiology Reports and Pathology Reports are provided separately, in subsequent sections. Lab Results This section contains the Chemistry/Hematology Results that were resulted 30 days before or 30 daysafter the date of the Encounter. Date/Time Source Result Type Result - Unit Interpretation Reference Range Comment Apr 26, 2023 11:12 AM [place] [facility] [place] [facility] PO4 Specimen Type: SERUM No comment entered. Ordering Provider: ALYCIA STEVENS Report Released Date/Time: Nov 01, 2022 09:00 PM Reporting Lab: [place] [facility] [place] [facility] [address] [address] Performing Lab: [place] [facility] [place] [address] [address] PO4 2.5 mg/dL 2.5-5.0 Apr 26, 2023 11:12 AM [place] [facility] [place] [facility] PTH INTACT Specimen Type: SERUM No comment entered. Ordering Provider: ALYCIA STEVENS Report Released Date/Time: Nov 01, 2022 09:00 PM Reporting Lab: [place] [facility] [place] [address] [place] [address] Performing Lab: [facility] [address] [address] PTH INTACT 118.5 pg/mL H 10-65 Apr 26, 2023 11:12 AM [facility] URIC ACID Specimen Type: SERUM No comment entered. Ordering Provider: ALYCIA STEVENS Report Released Date/Time: Nov 01, 2022 09:00 PM Reporting Lab: [facility] [address] [address] Performing Lab: [facility] [address] [address] URIC ACID 3.1 mg/dL L 3.5-7.2 Apr 26, 2023 11:12 AM [facility] FERRITIN Specimen Type: SERUM No comment entered. Ordering Provider: ALYCIA STEVENS Report Released Date/Time: Nov 01, 2022 09:00 PM Reporting Lab: [facility] [address] [address] Performing Lab: [facility] [address] [address] FERRITIN 40 ng/mL 20-300 Apr 26, 2023 11:12 AM [facility] ALKALINE PHOSPHATASE Specimen Type: SERUM No comment entered. Ordering Provider: ALYCIA STEVENS Report Released Date/Time: Nov 01, 2022 09:00 PM Reporting Lab: [facility] [address] [address] Performing Lab: [facility]RN [facility] [address] [address] ALKALINE PHOSPHATASE 78 U/L 40-150 Apr 26, 2023 11:12 AM [facility] MAGNESIUM Specimen Type: SERUM No comment entered. Ordering Provider: ALYCIA STEVENS Report Released Date/Time: Nov 01, 2022 09:00 PM Reporting Lab: [facility] [address] [address] Performing Lab: [facility] [address] [address] MAGNESIUM 2.0 mg/dL 1.6-2.6 Apr 26, 2023 11:12 AM [facility] IRON & TIBC PANEL Specimen Type: SERUM No comment entered. Ordering Provider: ALYCIA STEVENS A Report Released Date/Time: Nov 01, 2022 09:00 PM Reporting Lab: [address] [address] Performing Lab: [address] [address] TIBC 341 ug/dL 204-475 IRON 69 ug/dL 40-160 Transferrin Saturation 20.3 20.0-50.0 Apr 26, 2023 11:12 AM [facility] CBC Specimen Type: BLOOD No comment entered. Ordering Provider: ALYCIA STEVENS A Report Released Date/Time: Nov 01, 2022 09:00 PM Reporting Lab: [address] [address] Performing Lab: [address] [address] WBC 8.31 10*3/uL 4.50-11.00 RBC 4.42 10*6/uL 4.23-5.66 HGB 13.2 g/dL 12.8-17 HCT 41.3 39.2-50.4 MCV 93.4 fL 82-99 MCHC 32.0 g/dL 30.8-35.1 PLT 196 10*3/uL 140-360 RDW-CV 14.3 12.0-16.0 MCH 29.9 pg 26.2-32.6 Apr 26, 2023 11:12 AM [facility] VITAMIN D (25-[place]) Specimen Type: SERUM No comment entered. Ordering Provider: ALYCIA STEVENS Report Released Date/Time: Nov 01, 2022 09:00 PM Reporting Lab: [address] [address] Performing Lab: [place] [facility] [place] [facility] [address] [address] VITAMIN D (25-OH) 36 ng/mL 20-50 Apr 26, 2023 11:12 AM [facility] [place] [facility] CALCIUM Specimen Type: SERUM No comment entered. Ordering Provider: ALYCIA STEVENS Report Released Date/Time: Nov 01, 2022 09:00 PM Reporting Lab: [place] [facility] [place] [facility] [address] [address] Performing Lab: [place] [facility] [facility] [address] [address] CALCIUM 9.4 mg/dL 8.5-10.2 Apr 26, 2023 11:12 AM [facility] CHOLESTEROL Specimen Type: SERUM No comment entered. Ordering Provider: ALYCIA STEVENS Report Released Date/Time: Nov 01, 2022 09:00 PM Reporting Lab: [facility] [place] [facility] [address] [address] Performing Lab: [place] [facility] [facility] [address] [address] CHOLESTEROL 131 mg/dL Apr 26, 2023 11:12 AM [facility] HDL CHOLESTEROL Specimen Type: SERUM No comment entered. Ordering Provider: ALYCIA STEVENS Report Released Date/Time: Nov 01, 2022 09:00 PM Reporting Lab: [facility] [place] [facility] [address] [address] Performing Lab: [place] [facility] [place] [facility] [address] [address] HDL CHOLESTEROL 49 mg/dL 40-60 Apr 26, 2023 11:12 AM [facility] [place] [facility] MICROALBUMIN CREATININE RATIO PANEL Specimen Type: URINE No comment entered. Ordering Provider: ALYCIA STEVENS Report Released Date/Time: Nov 01, 2022 09:00 PM Reporting Lab: [facility] [place] [facility] [address] [address] Performing Lab: [place] [facility] [address] MICROALBUMIN/C REATININE RATIO 129.2 mg/g H 0-29.9 MICROALBUMIN,Q UANTITATIVE 12.5 mg/dL RR UNAVAIL CREATININE URINE 96.73 mg/dL Apr 26, 2023 11:12 AM [facility] BASIC METABOLIC PANEL (non-fasting) Specimen Type: SERUM No comment entered. Ordering Provider: ALYCIA STEVENS Report Released Date/Time: Nov 01, 2022 09:00 PM Reporting Lab: [address] [address] Performing Lab: [address] [address] UREA NITROGEN 23 mg/dL 7-25 GLUCOSE 136 mg/dL H 65-100 SODIUM 140 mmol/L 135-145 POTASSIUM 4.7 mmol/L 3.5-5.0 CHLORIDE 109 mmol/L 100-110 CO2 25 meq/L 20-30 CREATININE, Serum 2.01 mg/dL H 0.50-1.40 eGFR(CKD-EPI 2020) 32 mL/min L >60 Apr 06, 2023 11:39 AM [facility] LIVER FUNCTION Specimen Type: SERUM No comment entered. Ordering Provider: SOFI MANCERA Report Released Date/Time: Apr 05, 2023 04:18 PM Reporting Lab: [address] [address] Performing Lab: [address] [address] PROTEIN,TOTAL 6.3 g/dL 6.0-8.3 ALBUMIN 3.6 g/dL 3.5-5.0 ALKALINE PHOSPHATASE 70 U/L 40-150 AST 14 U/L 5-34 ALT 10 U/L BILIRUBIN, TOTAL 0.5 mg/dL 0.2-1.2 Apr 06, 2023 11:39 AM [facility] TSH Specimen Type: SERUM No comment entered. Ordering Provider: SOFI MANCERA Report Released Date/Time: Apr 05, 2023 04:18 PM Reporting Lab: [address] [place] [address] Performing Lab: [facility] [place] [facility] [address] [address] TSH 1.33 u[IU]/mL 0.35-5.00 Apr 06, 2023 11:39 AM [facility] [place] [facility] LIPID PANEL FASTING Specimen Type: SERUM No comment entered. Ordering Provider: SOFI MANCERA Report Released Date/Time: Apr 05, 2023 04:18 PM Reporting Lab: [facility] [place] [facility] [address] [address] Performing Lab: [facility] [address] [address] CHOLESTEROL 142 mg/dL TRIGLYCERIDE 118 mg/dL 0-150 LDL calculated 65 mg/dL 0-129 CHOL/HDL 2.7 HDL CHOLESTEROL 53 mg/dL 40-60 Apr 06, 2023 11:39 AM [facility] HEMOGLOBIN A1C PANEL Specimen Type: BLOOD [...] Apr 05, 2023 04:18 PM Reporting Lab: [facility] [place] [facility] [address] [address] Performing Lab: [facility]ERN [facility]ENTER[facility]ETS [facility] [address] [address] HEMOGLOBIN A1C 6.4 H 4.0-5.6 Apr 06, 2023 11:39 AM [facility] MICROALBUMIN CREATININE RATIO PANEL Specimen Type: URINE No comment entered. Ordering Provider: SOFI MANCERA Report Released Date/Time: Apr 05, 2023 04:18 PM Reporting Lab: [facility]ERN [facility] [address] [address] Performing Lab: [facility]ERN [facility]ENTERUSETS [address] [address] MICROALBUMIN/C REATININE RATIO 130.6 mg/g H 0-29.9 MICROALBUMIN,Q UANTITATIVE 12.8 mg/dL RR UNAVAIL CREATININE URINE 97.99 mg/dL Apr 06, 2023 11:39 AM [facility] URIC ACID Specimen Type: SERUM No comment entered. Ordering Provider: SOFI MANCERA Report Released Date/Time: Apr 05, 2023 04:19 PM Reporting Lab: [address] [address] Performing Lab: [address] [address] URIC ACID 2.9 mg/dL L 3.5-7.2 Apr 06, 2023 11:39 AM [facility] URINALYSIS CLEAN CATCH Specimen Type: URINE Comment: If Glucose = >500 and Ketones are positive, please alert the Physician. Ordering Provider: SOFI MANCERA Report Released Date/Time: Apr 05, 2023 04:18 PM Reporting Lab: [address] [address] Performing Lab: [address] [address] UA COLOR Light-Yellow Yellow UA APPEARANCE Clear Clear UA GLUCOSE NEGATIVE mg/dL Negative UA KETONES NEGATIVE mg/dL Negative UA BLOOD NEGATIVE mg/dL Negative UA PROTEIN 20 mg/dL Negative UA NITRITE NEGATIVE mg/dL Negative UA BILIRUBIN NEGATIVE mg/dL Negative UA SPECIFIC GRAVITY 1.017 1.016-1.02 2 UA pH 6.0 5.0-9.0 UA UROBILINOGEN <2.0 mg/dL <2.0 UA LEUKOCYTE NEGATIVE Negative Apr 06, 2023 11:39 AM [facility] BASIC METABOLIC PANEL (fasting) Specimen Type: SERUM No comment entered. Ordering Provider: SOFI MANCERA Report Released Date/Time: Apr 05, 2023 04:18 PM Reporting Lab: [address] [address] Performing Lab: [address] [address] UREA NITROGEN 23 mg/dL 7-25 GLUCOSE 163 mg/dL H 65-100 SODIUM 140 mmol/L 135-145 POTASSIUM 4.7 mmol/L 3.5-5.0 CHLORIDE 108 mmol/L 100-110 CO2 23 meq/L 20-30 CREATININE, Serum 1.90 mg/dL H 0.50-1.40 eGFR(CKD-EPI 2020) 34 mL/min L >60 Apr 06, 2023 11:39 AM [facility] CBC AND DIFF (AUTO) Specimen Type: BLOOD No comment entered. Ordering Provider: SOFI MANCERA Report Released Date/Time: Apr 05, 2023 04:18 PM Reporting Lab: [facility] [address] [facility] [facility] [address] Performing Lab: [facility] [address] [facility] [facility] [address] WBC 7.36 10*3/uL 4.50-11.00 RBC 4.36 10*6/uL 4.23-5.66 HGB 13.0 g/dL 12.8-17 HCT 40.9 39.2-50.4 MCV 93.8 fL 82-99 MCHC 31.8 g/dL 30.8-35.1 PLT 188 10*3/uL 140-360 RDW-CV 13.6 12.0-16.0 [place], Abs 0.63 10*3/uL 0.30-1.10 MCH 29.8 pg 26.2-32.6 Neut % 66.9 43.7-75.8 Lymph % 19.2 14.0-42.3 [place] % 8.6 5.1-13.7 Eos % 4.6 0.4-6.8 [...] and tobacco- related health factors from the [place] facility where the Encounter took place. Current Smoking Status This section includes the most current smoking, or tobacco-related health factor, from the [place] facility where the Encounter took place. Date/Time Current Smoking Status Comment María Elena ity Mar 30, 2022 11:00 AM VA-TOBACCO FORMER USER [place] [facility] [place] [facility] Tobacco Use History This section includes a history of the smoking, or tobacco-related health factors, that were collected on or before the date of the Encounter. The data comes from the [place] facility where the Encounter took place. Date/Time Smoking Status/Tobacco Use Comment Gamaliel [email or web address] Mar 30, 2022 11:00 AM VA-TOBACCO QUIT 15 YRS OR MORE [facility] [place] [facility] Mar 17, 2021 01:30 PM VA-TOBACCO FORMER USER [facility] [place] [facility] Mar 17, 2021 01:30 PM VA-TOBACCO NEVER USED [facility] [place] [facility] Mar 17, 2021 01:30 PM VA-TOBACCO QUIT 15 YRS OR MORE [facility] [place] [facility] Mar 31, 2020 10:30 AM VA-TOBACCO FORMER USER [facility] [place] [facility] Mar 31, 2020 10:30 AM VA-TOBACCO QUIT 15 YRS OR MORE [facility] [place] [facility] Nov 23, 2018 12:07 PM VA-TOBACCO FORMER USER [facility] [place] [facility] Nov 23, 2018 12:07 PM VA-TOBACCO QUIT 15 YRS OR MORE [facility] [place] [facility] Nov 22, 2017 10:02 AM VA-TOBACCO NEVER USED [facility] [place] [facility] Mar 14, 2017 09:31 AM LIFETIME NON-TOBACCO USER [facility] [place] [facility] Mar 01, 2016 02:51 PM LIFETIME NON-TOBACCO USER [facility] [place] [facility] Feb 10, 2015 09:31 AM QUIT TOBACCO USE > 7 YEARS AGO quit in 1964 [place] [facility] [facility] Encounter Notes: All associated encounter notes This section contains the clinical notes associated to the Encounter. Date/Time Encounter Note(s) Provider Source Apr 24, 2023 08:59 AM OPTOMETRY NOTE: LOCAL TITLE: OPTOMETRY NOTE(T) STANDARD TITLE: OPTOMETRY NOTE DATE OF NOTE: APR 24, 2023@08:59 ENTRY DATE: APR 24, 2023@08:59:38 AUTHOR: DALLIN MASON EXP COSIGNER: URGENCY: STATUS: COMPLETED Active Problems: Active Problem Atrial fibrillation I48.91, Onset 0 10/12/2022 SOFI MANCERA Diabetes mellitus type 2 E11.9 01/15/2022 SHANTHI MARSH Chronic kidney disease stage 3 due 01/15/2022 SHANTHI MARSH Back pain M54.9, Onset 11/10/2020 SOFI MANCERA Benign Prostatic Hypertrophy Withou 11/23/2018 SOFI MANCERA Essential hypertension I10. 02/10/2015 SOFI MANCERA Age Macular Degeneration, Wet (Armd 05/12/2014 DALLIN MASON Blurred vision (ICD-9-CM 368.8) 368 06/24/2011 DALLIN MASON Hyperuricemia 790.6 10/21/2008 ROGER SO Colonoscopy, 2006, tics, polyps -- 10/21/2008 ROGER SO Pain in joint involving shoulder re 01/24/2007 RE MCALLISTER Nephrolithiasis * (ICD-9-CM 592.0) 01/24/2007 RE MCALLISTER Microscopic Hematuria 599.72, Onset 01/29/2008 RE MCALLISTER Hyperlipidemia (SNOMED CT 94253579) 10/25/2021 SHANTHI MARSH Obesity (SNOMED CT 543925787) E66.8 01/26/2022 MAXIMO,SHANTHI Essential hypertension 401.9 01/24/2007 RE MCALLISTER Gastroesophageal Reflux Disorder 53 01/24/2007 RE MCALLISTER Arthritis 716.90 01/24/2007 RE MCALLISTER Medications ([facility]): Active Outpatient Medications (including Supplies): Active Outpatient [...] ONCE DAILY NEEDED FOR NASAL IRRITATION/INFLAMMATION 5) INSULIN SYRINGE 0.5ML 31G 6MM USE 1 SYRINGE ACTIVE SUBCUTANEOUSLY TWICE DAILY FOR INSULIN INJECTIONS DIRECTED BY PROVIDER 6) INSULIN,GLARGINE-YFGN 100UNIT/ML INJ INJECT 20 UNITS ACTIVE SUBCUTANEOUSLY AT BEDTIME FOR BLOOD SUGAR 7) LANCET,SOFTCLIX USE 1 LANCET DIRECTED FOUR TIMES A ACTIVE DAY TO TEST BLOOD SUGAR 8) MULTIVIT/OPHTH AREDS2/LUTE/ZEAX CAP/TAB TAKE 1 ACTIVE CAPSULE BY MOUTH TWICE DAILY IN THE MORNING AND EVENING, WITH FOOD 9) OMEPRAZOLE 20MG EC CAP TAKE ONE CAPSULE BY MOUTH ACTIVE EVERY DAY FOR STOMACH ACID 10) POTASSIUM CITRATE 5MEQ SA TAB TAKE TWO TABLETS BY ACTIVE MOUTH EVERY MORNING AND TAKE ONE TABLET EVERY EVENING FOR RENAL TUBULAR ACIDOSIS 11) RIVAROXABAN 15MG TAB TAKE ONE TABLET BY MOUTH ONCE ACTIVE DAILY WITH DINNER 12) ROSUVASTATIN CA 20MG TAB TAKE ONE AND ONE-HALF ACTIVE TABLETS BY MOUTH ONCE DAILY FOR CHOLESTEROL 13) TAMSULOSIN HCL 0.4MG CAP TAKE TWO CAPSULES BY MOUTH ACTIVE AT BEDTIME Active Non-VA Medications Status 1) Non-VA METOPROLOL SUCCINATE 25MG SA TAB 25MG BY MOUTH ACTIVE EVERY DAY 14 Total Medications Allergies: METFORMIN, LISINOPRIL, ATORVASTATIN S: 83-year-old male is in for followup with a history of stable wet macular degeneration OD and subsequent injections several years ago with Dr. Castillo at [facility]. He was last there November 2021. He also has a history of diabetes and pseudophakia. He states that his blood glucose is mostly controlled. Otherwise he denies any history of eye injury or disease since his last exam. He complains of occasional mild blurred vision at distance and uses lubricating drops as needed for dry eye complaints. He also complains of having to lift his glasses to see his computer and for reading. Family ocular history is negative for cataracts, glaucoma, macular degeneration and strabismus. He also takes PreserVision capsules twice a day. BECCA: 03/16/2022 (-) Pain: (-) BECK: (-) Diplopia: (-) Flashes: (-) Floaters: (-) Amaurosis Fugax/Tia's: (-) Eye Injury: (-) Eye Surgery: CE with PCIOL OU (-) TBI Last HbA1c: 01/12/2022 6.2% O: Visual acuity without correction was 20/400+ OD and 20/25 - OS. Pupils were equal and round and reactive to light with no affarent defect. Extraocular muscles were intact and facial confrontation gary were full. Lids and lashes were clear each eye. Corneas and conjunctiva were clear each eye. Anterior chambers were deep clear and quiet with open angles. Iris was flat each eye without neovascularization. Posterior chamber lenses were in place and clear OU. Refraction + 0.25-0.50 X 98 20/400+ slow + 0.50 -0.25 X 135 20/25 slow +2.50 for reading gives 20/20 slow OS Intraocular pressures at 11:40 AM were 17 mm of mercury each eye. Dilating Drops: 1GTT 1 % Tropicamide OU & 1GTT 2.5% Phenylephrine OU (Pt. ed. on side effects, dilation warning given and verbal consent obtained) Patient advised not to drive if they feel they have any symptoms which could affect their ability to drive safely. Patient advised not to engage in any activities which could put themselves or others at risk if they feel they have any symptoms which could affect their ability to perform those activities safely. Vitreous syneresis was seen each eye. 35% horizontal and vertical cupping was seen each eye with healthy rims and margins and no neovascularization. Normal pigmentary architecture of the macula was seen with a one third artery to vein ratio OS and OD exhibited circular geographic area of atrophy (approximately 3/4 of a disc diameter) without hemorrhage or edema. No lipid or edema was seen at the poles each eye. Retinal peripheries were intact in all quadrants OU no retinopathy was seen both eyes. 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 Patient was to have annual follow-up with [facility]. He desires to see them again. I will order new consult today. He will also continue taking PreserVision 2. The patient will return for follow-up in 12 months or sooner if any problems arise. Education: After discussion and answering all 's questions, demonstrated and verbalized understanding of diagnosis and treatment. Yes [x] No [ ] Macular Degeneration: Patient was educated regarding macular degeneration including both wet and dryvarieties as well as the natural history and prognosis of this condition. Education included the role of amsler grid testing , ocular nutraceutical therapy as well as diet and healthy lifestyle choices when applicable. Exclusion criteria includes extremely reduced acuity or cognitive decline for amsler grid testing and other coexisting systemic contraindication for supplements, diet and exercise.Education: Diabetes: Patient was educated regarding diabetes and related ocular complications including retinopathy and cataract formation as well as other related systemic complications. The importance of good blood sugar control, blood sugar testing as recommended by their PCP and the importance of timely follow up were all emphasized. Medication Reconciliation: Outpatient: Has the patient been taking medications as documented in the EMLR? YES: The patient has been taking medications as documented in the EMLR. Essential Medication List for Review used to complete this medication reconciliation. INCLUDED IN THIS LIST: Alphabetical list of active outpatient prescriptions [facility] from this [facility] (local) and dispensed from another [facility] or [facility] facility (remote) as well as inpatient orders (local, pending and active), local clinic medications, locally documented non-VA medications, and local prescriptions that have or been discontinued in the past 90 days. - All changes in medications, including all non-VA/Herbal/OTC medications were entered into [facility]. - If there were any medications the patient should no longer take, they were discontinued. - The patient/caregiver was instructed to update this list, discard old lists, and take this list to the next appointment, whether with a [facility] or non-VA provider. /cas/ DALLIN MASON OD STAFF CORRESPONDENCE DICTATOR Signed: 04/24/2023 12:03 DALLIN MASON RI CNTRL [facility]
--- OUTSIDE RECORDS SUMMARY | 2024-03-20 13:57 | XMS_ITS ---
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 Date/Time Encounter Type Encounter Description Reason Provider Source Apr 26, 2023 10:00 AM OFFICE O/P EST LOW 20 MIN PRIMARY CARE/MEDICINE ICD-10-CM E11.9 Type 2 diabetes mellitus without complications NERI MANCERA E Encounter Template Text not used by MD Assessments - Encounter Diagnoses This section includes the primary and secondary diagnoses documented for the Encounter. Date/Time Primary/Secondary Diagnosis Diagnosis Name Provider Source May 08, 2023 10:38 AM PRIMARY Type 2 diabetes mellitus without complications NERI MANCERA [place] [facility] [place] [facility] Plan of Treatment: Future Appointments (+ 6 months) and Future Tests (+/- 45 days) The Plan of Treatment section includes future care activities for the patient from all MD treatmentfacilities. This section includes future appointments and future orders which are active, pending or scheduled. Future Appointments This section includes appointments that were scheduled to occur 6 months from the date of the Encounter, up to a maximum of 20 appointments. The data comes from all MD treatment facilities. Appointment Date/Time Appointment Type Appointme nt Facility Name May 09, 2023 11:00 AM AMBULATORY - MEDICINE MD C [facility] [place] [facility] May 12, 2023 10:00 AM AMBULATORY - MEDICINE MD [facility] [place] [facility] May 15, 2023 11:20 AM AMBULATORY - MEDICINE MD [facility] [place] [facility] May 29, 2023 11:00 AM AMBULATORY - MEDICINE MD [facility] [place] [facility] Jul 05, 2023 03:00 PM AMBULATORY - MEDICINE MD [facility] [place] [facility] Jul 06, 2023 10:30 AM AMBULATORY - MEDICINE MD [facility] [place] [facility] August 02, 2023 02:30 PM AMBULATORY - MEDICINE MD [facility] [place] [facility] August 08, 2023 02:00 PM AMBULATORY - MEDICINE MD [facility] [place] [facility] Aug 23, 2023 10:30 AM AMBULATORY - REHAB MEDICIN E [facility] [place] [facility] Sep 01, 2023 11:30 AM AMBULATORY - MEDICINE MD [facility] [place] [facility] Sep 11, 2023 02:30 PM AMBULATORY - MEDICINE MD [facility] [place] [facility] Sep 15, 2023 10:30 AM AMBULATORY - MEDICINE MD [facility] [place] [facility] Oct 02, 2023 09:30 AM AMBULATORY - MEDICINE MD [facility] [place] [facility] Oct 04, 2023 10:00 AM AMBULATORY - MEDICINE MD [facility] [place] [facility] Oct 11, 2023 09:00 AM AMBULATORY - MEDICINE MD [facility] [place] [facility] Oct 18, 2023 10:00 AM AMBULATORY - MEDICINE MD [facility] [place] [facility] Lab Results: +/- 30 days [...] Range Comment Apr 26, 2023 11:12 AM [facility] [place] [facility] PO4 Specimen Type: SERUM No comment entered. Ordering Provider: ALYCIA STEVENS Report Released Date/Time: Nov 01, 2022 09:00 PM Reporting Lab: [facility] [place] [facility] [address] [facility] [address] Performing Lab: [facility] [place] [facility] [address] [facility] [address] PO4 2.5 mg/dL 2.5-5.0 Apr 26, 2023 11:12 AM [facility] [place] [facility] PTH INTACT Specimen Type: SERUM No comment entered. Ordering Provider: ALYCIA STEVENS Report Released Date/Time: Nov 01, 2022 09:00 PM Reporting Lab: [facility] [place] [facility] [address] [facility] [address] Performing Lab: [facility] [place] [facility] [address] [facility] [address] PTH INTACT 118.5 pg/mL H 10-65 Apr 26, 2023 11:12 AM [facility] [place] [facility] URIC ACID Specimen Type: SERUM No comment entered. Ordering Provider: ALYCIA STEVENS Report Released Date/Time: Nov 01, 2022 09:00 PM Reporting Lab: [facility] [place] [facility] [address] [facility] [address] Performing Lab: [place] [facility] [place] [address] [address] URIC ACID 3.1 mg/dL L 3.5-7.2 Apr 26, 2023 11:12 AM [facility] [place] [facility] ALKALINE PHOSPHATASE Specimen Type: SERUM No comment entered. Ordering Provider: ALYCIA STEVENS Report Released Date/Time: Nov 01, 2022 09:00 PM Reporting Lab: [facility] [place] [facility] [address] [facility] [address] Performing Lab: [place] [facility] [place] [address] [address] ALKALINE PHOSPHATASE 78 U/L 40-150 Apr 26, 2023 11:12 AM [facility] FERRITIN Specimen Type: SERUM No comment entered. Ordering Provider: ALYCIA STEVENS Report Released Date/Time: Nov 01, 2022 09:00 PM Reporting Lab: [facility] [place] [address] [address] Performing Lab: [facility] [place] [address] [address] FERRITIN 40 ng/mL 20-300 Apr 26, 2023 11:12 AM [facility]N [facility] CALCIUM Specimen Type: SERUM No comment entered. Ordering Provider: ALYCIA STEVENS Report Released Date/Time: Nov 01, 2022 09:00 PM Reporting Lab: [facility] [place] [address] [address] Performing Lab: [facility] [place] [address] [address] CALCIUM 9.4 mg/dL 8.5-10.2 Apr 26, 2023 11:12 AM [facility]N [facility] MAGNESIUM Specimen Type: SERUM No comment entered. Ordering Provider: ALYCIA STEVENS Report Released Date/Time: Nov 01, 2022 09:00 PM Reporting Lab: [facility] [place] [address] [address] Performing Lab: [facility] [place] [address] [address] MAGNESIUM 2.0 mg/dL 1.6-2.6 Apr 26, 2023 11:12 AM [facility]TRN [facility]ITAL[facility] VITAMIN D (25-OH) Specimen Type: SERUM No comment entered. Ordering Provider: ALYCIA TSEVENS Report Released Date/Time: Nov 01, 2022 09:00 PM Reporting Lab: [facility] [place] [facility] [address] [facility] [address] Performing Lab: [facility] [address] [facility] [address] VITAMIN D (25-OH) 36 ng/mL 20-50 Apr 26, 2023 11:12 AM [facility]USEN[facility] IRON & TIBC PANEL Specimen Type: SERUM No comment entered. Ordering Provider: ALYCIA STEVENS Report Released Date/Time: Nov 01, 2022 09:00 PM Reporting Lab: [facility]LETRN [facility]ITALUSETS [address] [address] Performing Lab: [facility]LETRN [facility]ITALUSETS [facility] [address] [facility] [address] TIBC 341 ug/dL 204-475 IRON 69 ug/dL 40-160 Transferrin Saturation 20.3 20.0-50.0 Apr 26, 2023 11:12 AM [facility]USEN[facility] CHOLESTEROL Specimen Type: SERUM No comment entered. Ordering Provider: ALYCIA STEVENS Report Released Date/Time: Nov 01, 2022 09:00 PM Reporting Lab: [facility]LETRN [facility]ITALUSETS [address] [address] Performing Lab: [facility]ITALUSETS [address] [address] CHOLESTEROL 131 mg/dL Apr 26, 2023 11:12 AM [facility]RENCOM[facility]ITALN [facility]ITALUSETS [facility] CBC Specimen Type: BLOOD No comment entered. Ordering Provider: ALYCIA STEVENS Report Released Date/Time: Nov 01, 2022 09:00 PM Reporting Lab: [facility]LETRN [facility]ITALUSETS [address] [address] Performing Lab: [facility]N [facility]ITALUSETS [address] [address] WBC 8.31 10*3/uL 4.50-11.00 RBC 4.42 10*6/uL 4.23-5.66 HGB 13.2 g/dL 12.8-17 HCT 41.3 39.2-50.4 MCV 93.4 fL 82-99 MCHC 32.0 g/dL 30.8-35.1 PLT 196 10*3/uL 140-360 RDW-CV 14.3 12.0-16.0 MCH 29.9 pg 26.2-32.6 Apr 26, 2023 11:12 AM [facility]USENEWY[facility] HDL CHOLESTEROL Specimen Type: SERUM No comment entered. Ordering Provider: ALYCIA STEVENS Report Released Date/Time: Nov 01, 2022 09:00 PM Reporting Lab: [facility] [address] [address] Performing Lab: [facility]ITALUSE[address] [address] HDL CHOLESTEROL 49 mg/dL 40-60 Apr 26, 2023 11:12 AM [facility]USENEWY[facility] MICROALBUMIN CREATININE RATIO PANEL Specimen Type: URINE No comment entered. Ordering Provider: ALYCIA STEVENS Report Released Date/Time: Nov 01, 2022 09:00 PM Reporting Lab: [facility] [address] [address] Performing Lab: [facility]ITALUSE[address] [address] MICROALBUMIN/C REATININE RATIO 129.2 mg/g H 0-29.9 MICROALBUMIN,Q UANTITATIVE 12.5 mg/dL RR UNAVAIL CREATININE URINE 96.73 mg/dL Apr 26, 2023 11:12 AM [facility]USENEW[facility] BASIC METABOLIC PANEL (non-fasting) Specimen Type: SERUM No comment entered. Ordering Provider: ALYCIA STEVENS Report Released Date/Time: Nov 01, 2022 09:00 PM Reporting Lab: [facility]ITALUSETS [address] [address] Performing Lab: [facility] [place] [facility] [address] [facility] [address] UREA NITROGEN 23 mg/dL 7-25 GLUCOSE 136 mg/dL H 65-100 SODIUM 140 mmol/L 135-145 POTASSIUM 4.7 mmol/L 3.5-5.0 CHLORIDE 109 mmol/L 100-110 CO2 25 meq/L 20-30 CREATININE, Serum 2.01 mg/dL H 0.50-1.40 eGFR(CKD-EPI 2020) 32 mL/min L >60 Apr 06, 2023 11:39 AM [facility] LIPID PANEL FASTING Specimen Type: SERUM No comment entered. Ordering Provider: NERI MANCERA Report Released Date/Time: Apr 05, 2023 04:18 PM Reporting Lab: [address] [address] Performing Lab: [address] [address] CHOLESTEROL 142 mg/dL TRIGLYCERIDE 118 mg/dL 0-150 LDL calculated 65 mg/dL 0-129 CHOL/HDL 2.7 HDL CHOLESTEROL 53 mg/dL 40-60 Apr 06, 2023 11:39 AM [facility] LIVER FUNCTION Specimen Type: SERUM No comment entered. Ordering Provider: NERI MANCERA Report Released Date/Time: Apr 05, 2023 04:18 PM Reporting Lab: [address] [address] Performing Lab: [address] [address] PROTEIN,TOTAL 6.3 g/dL 6.0-8.3 ALBUMIN 3.6 g/dL 3.5-5.0 ALKALINE PHOSPHATASE 70 U/L 40-150 AST 14 U/L 5-34 ALT 10 U/L BILIRUBIN, TOTAL 0.5 mg/dL 0.2-1.2 Apr 06, 2023 11:39 AM [facility] TSH Specimen Type: SERUM No comment entered. Ordering Provider: NERI MANCERA Report Released Date/Time: Apr 05, 2023 04:18 PM Reporting Lab: [address] [address] Performing Lab: [facility]USEN[facility] [address] [facility] [address] TSH 1.33 u[IU]/mL 0.35-5.00 Apr 06, 2023 11:39 AM [facility] HEMOGLOBIN A1C PANEL Specimen Type: BLOOD [...] Apr 05, 2023 04:18 PM Reporting Lab: [facility] [address] [facility] [address] Performing Lab: [address] [address] HEMOGLOBIN A1C 6.4 H 4.0-5.6 Apr 06, 2023 11:39 AM [facility] URIC ACID Specimen Type: SERUM No comment entered. Ordering Provider: NERI MANCERA Report Released Date/Time: Apr 05, 2023 04:19 PM Reporting Lab: [facility] [address] [facility] [address] Performing Lab: [address] [address] URIC ACID 2.9 mg/dL L 3.5-7.2 Apr 06, 2023 11:39 AM [facility] MICROALBUMIN CREATININE RATIO PANEL Specimen Type: URINE No comment entered. Ordering Provider: NERI MANCERA Report Released Date/Time: Apr 05, 2023 04:18 PM Reporting Lab: [address] [address] Performing Lab: [address] [address] MICROALBUMIN/C REATININE RATIO 130.6 mg/g H 0-29.9 MICROALBUMIN,Q UANTITATIVE 12.8 mg/dL RR UNAVAIL CREATININE URINE 97.99 mg/dL Apr 06, 2023 11:39 AM [facility] URINALYSIS CLEAN CATCH Specimen Type: URINE Comment: If Glucose = >500 and Ketones are positive, please alert the Physician. Ordering Provider: NERI MANCERA Report Released Date/Time: Apr 05, 2023 04:18 PM Reporting Lab: [address] [address] Performing Lab: [facility] [address] [facility] [address] UA COLOR Light-Yellow Yellow UA APPEARANCE Clear Clear UA GLUCOSE NEGATIVE mg/dL Negative UA KETONES NEGATIVE mg/dL Negative UA BLOOD NEGATIVE mg/dL Negative UA PROTEIN 20 mg/dL Negative UA NITRITE NEGATIVE mg/dL Negative UA BILIRUBIN NEGATIVE mg/dL Negative UA SPECIFIC GRAVITY 1.017 1.016-1.02 2 UA pH 6.0 5.0-9.0 UA UROBILINOGEN <2.0 mg/dL <2.0 UA LEUKOCYTE NEGATIVE Negative Apr 06, 2023 11:39 AM [facility] BASIC METABOLIC PANEL (fasting) Specimen Type: SERUM No comment entered. Ordering Provider: NERI MANCERA Report Released Date/Time: Apr 05, 2023 04:18 PM Reporting Lab: [facility] [address] [facility] [address] Performing Lab: [address] [address] UREA NITROGEN 23 mg/dL 7-25 GLUCOSE 163 mg/dL H 65-100 SODIUM 140 mmol/L 135-145 POTASSIUM 4.7 mmol/L 3.5-5.0 CHLORIDE 108 mmol/L 100-110 CO2 23 meq/L 20-30 CREATININE, Serum 1.90 mg/dL H 0.50-1.40 eGFR(CKD-EPI 2020) 34 mL/min L >60 Apr 06, 2023 11:39 AM [facility] CBC AND DIFF (AUTO) Specimen Type: BLOOD No comment entered. Ordering Provider: NERI MANCERA Report Released Date/Time: Apr 05, 2023 04:18 PM Reporting Lab: [facility] [address] [facility] [address] Performing Lab: [facility] [address] [facility] [address] WBC 7.36 10*3/uL 4.50-11.00 RBC 4.36 10*6/uL 4.23-5.66 HGB 13.0 g/dL 12.8-17 HCT 40.9 39.2-50.4 MCV 93.8 fL 82-99 MCHC 31.8 g/dL 30.8-35.1 PLT 188 10*3/uL 140-360 RDW-CV 13.6 12.0-16.0 Atkinson, Abs 0.63 10*3/uL 0.30-1.10 MCH 29.8 pg 26.2-32.6 Neut % 66.9 43.7-75.8 Lymph % 19.2 14.0-42.3 Atkinson % 8.6 5.1-13.7 Eos % 4.6 0.4-6.8 Baso % 0.4 0.1-2.0 Neut, Abs 4.93 10*3/uL 2.20-7.60 Lymph, Abs 1.41 10*3/uL 1.00-3.20 Eos, Abs 0.34 10*3/uL 0.03-0.44 Baso, Abs 0.03 10*3/uL 0.01-0.13 Immature Gran % 0.3 0.0-0.7 Immature Gran, Abs 0.02 10*3/uL 0.00-0.06 Vital Signs: All taken on the encounter date This section contains inpatient and outpatient Vital Signs collected on the date of the Encounter. Date/Time Temperature Pulse Blood Pressure Respiratory Rate SP02 Pain Height Weight Body Mass Index Source Apr 26, 2023 09:57 AM 97 64 120/64 16 96 0 225 33 [facility] Social History: Smoking Status (Most current) and Tobacco Use (All prior to encounter date) This section includes the most current, and the historical, smoking and tobacco- related health factors from the MD facility where the Encounter took place. Current Smoking Status This section includes the most current smoking, or tobacco-related health factor, from the MD facility where the Encounter took place. Date/Time Current Smoking Status Comment Facil ity Apr 26, 2023 10:00 AM VA-TOBACCO FORMER USER [place] [facility] [place] [facility] Tobacco Use History This section includes a history of the smoking, or tobacco-related health factors, that were collected on or before the date of the Encounter. The data comes from the MD facility where the Encounter took place. Date/Time Smoking Status/Tobacco Use Comment Gamalile landin Apr 26, 2023 10:00 AM VA-TOBACCO QUIT 15 YRS OR MORE [facility] [place] [facility] Mar 30, 2022 11:00 AM VA-TOBACCO FORMER USER [facility] [place] [facility] Mar 30, 2022 11:00 AM VA-TOBACCO QUIT 15 YRS OR MORE [facility] [place] [facility] Mar 17, 2021 01:30 PM VA-TOBACCO FORMER USER [facility] [place] [facility] Mar 17, 2021 01:30 PM VA-TOBACCO NEVER USED [facility] [place] [facility] Mar 17, 2021 01:30 PM VA-TOBACCO QUIT 15 YRS OR MORE [facility] [place] [facility] Mar 31, 2020 10:30 AM VA-TOBACCO FORMER USER [facility] [place] [facility] Mar 31, 2020 10:30 AM VA-TOBACCO QUIT 15 YRS OR MORE [facility] [place] [facility] Nov 23, 2018 12:07 PM VA-TOBACCO FORMER USER [facility] [place] [facility] Nov 23, 2018 12:07 PM VA-TOBACCO QUIT 15 YRS OR MORE [facility] [place] [facility] Nov 22, 2017 10:02 AM VA-TOBACCO NEVER USED [facility] [place] [facility] Mar 14, 2017 09:31 AM LIFETIME NON-TOBACCO USER [facility] [place] [facility] Mar 01, 2016 02:51 PM LIFETIME NON-TOBACCO USER [facility] [place] [facility] Feb 10, 2015 09:31 AM QUIT TOBACCO USE > 7 YEARS AGO quit in 1964 [facility] [place] [facility] Encounter Notes: All associated encounter notes This section contains the clinical notes associated to the Encounter. Date/Time Encounter Note(s) Provider Source Apr 26, 2023 10:31 AM PHYSICIAN NOTE: LOCAL TITLE: MD NOTE STANDARD TITLE: PHYSICIAN NOTE DATE OF NOTE: APR 26, 2023@10:31 ENTRY DATE: APR 26, 2023@10:31:21 AUTHOR: NERI MANCERA EXP COSIGNER: URGENCY: STATUS: COMPLETED Patient Name: JACQUELYN BROWN VITALS: Patient temperature: 97 F [36.1 C] (04/26/2023 09:57) Blood pressure: 120/64 (04/26/2023 09:57) Patient height: 69 in [175.3 cm] (07/20/2018 09:30) Patient weight: 225 lb [102.06 kg] (04/26/2023 09:57) Patient BMI: BMI: 33.3 Patient pulse: 64 (04/26/2023 09:57) Patient respiration: 16 (04/26/2023 09:57) Patient Pulse Oximetry: 96% (04/26/2023 09:57) Pain Ratin (04/26/2023 09:57) Active VA Medications: Active Outpatient Medications (including Supplies): Active Outpatient Medications Status = 1) ACCU-CHEK GUIDE (GLUCOSE) TEST STRIP USE [...] ACTIVE AT BEDTIME Active Non-VA Medications Status = 1) Non-VA METOPROLOL SUCCINATE 25MG SA TAB 25MG BY MOUTH ACTIVE EVERY DAY 14 Total Medications Remote Medications: No Active 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 He makes a judgment regarding dose based on how sugars are running. He brings list of home blood sugars. Blood sugars are running 100-180. No episodes of hypoglycemia. Review of systems No chest pain or dyspnea No abdominal pain No trouble urinating No fever or chills No cough Physical examination Coronary no murmur, irregular Lungs clear No peripheral edema MICROALB/CR RATIO: 130.6 H MICROALBUMIN URINE: 12.8 CREATININE URINE: 97.99 HGB A1C (WR): 6.4 H WBC: 7.36 RBC: 4.36 HGB: 13.0 HCT: 40.9 MCV: 93.8 MCHC: 31.8 RDW: 13.6 PLT: 188 MCH: 29.8 Neut %: 66.9 Lymph %: 19.2 Atkinson %: 8.6 Eos %: 4.6 Baso %: 0.4 Neut, Abs: 4.93 Lymph, Abs: 1.41 Atkinson, Abs: 0.63 Eos, Abs: 0.34 Baso, Abs: 0.03 Immature Granulocytes %: 0.3 Immature Granulocytes, Abs: 0.02 Color, Urine (AX 4280): Light-Yellow Appearance, Urine (AX 4280): Clear Glucose, Urine (AX 4280): NEGATIVE Ketones, Urine (AX 4280): NEGATIVE Blood, Urine (AX 4280): NEGATIVE Protein, Urine (AX 4280): 20 Nitrite, Urine (AX 4280): NEGATIVE Bilirubin, Urine (AX 4280): NEGATIVE Specific Anita, (AX 4280): 1.017 pH, Urine ([id number]): 6.0 Urobilinogen, Urine (AX 4280): <2.0 Leukocyte Esterase, (AX 4280): NEGATIVE GLUCOSE: 163 H UREA NITROGEN: 23 SODIUM: 140 POTASSIUM: 4.7 CHLORIDE: 108 CO2: 23 URIC ACID: 2.9 L CHOLESTEROL: 142 PROTEIN,TOTAL: 6.3 ALBUMIN: 3.6 ALKALINE PHOSPHATASE: 70 SGOT: 14 SGPT: 10 TRIGLYCERIDE: 118 LDL CHOL: 65 CHOL/HDL RATIO: 2.7 HDL: 53 BILIRUBIN,TOT.: 0.5 TSH (Access): 1.33 CREATININE-EGFR: 1.90 H eGFR CKD-EPI 2020: 34 L WBC: 6.76 RBC: 4.44 HGB: 13.6 HCT: 41.6 MCV: 93.7 MCHC: 32.7 RDW: 13.6 PLT: 188 MCH: 30.6 PTH (Intact)-q: 116.9 H MICROALB/CR RATIO: 138.3 H MICROALBUMIN URINE: 17.1 CREATININE URINE: 123.64 CALCIUM: 9.1 PO4: 2.2 L URIC ACID: 3.0 L CHOLESTEROL: 138 ALKALINE PHOSPHATASE: 74 MAGNESIUM: 2.0 TIBC (WROX): 347 IRON (WROX): 65 HDL: 49 FERRITIN (WR): 34 TRANSFERRIN SATURATION: 18.7 L VITAMIN D TOTAL: 33 GLUCOSE: 173 H UREA NITROGEN: 20 SODIUM: 144 POTASSIUM: 4.7 CHLORIDE: 111 H CO2: 23 CREATININE-EGFR: 1.96 H eGFR CKD-EPI 2020: 33 L I discussed above test results with patient Assessment and plan: 1. Diabetes mellitus: Hemoglobin A1c is satisfactory Plan continue present medications Follow-up 4 months clinic visit and lab Medication Reconciliation: Outpatient: Has the patient been [...] whether with a VA or non-VA provider. COVID-19 Immunization: Vaccine given previously - no written/electronic documentation available Comment: February 2023 /cas/ Neri Mancera MD Staff Physician Signed: 04/26/2023 10:35 NERI MANCERA MD [facility] [place] [facility] Apr 26, 2023 09:58 AM PREVENTIVE MEDICINE NURSING NOTE: LOCAL TITLE: CLINICAL REMINDERS/NURSING STANDARD TITLE: PREVENTIVE MEDICINE NURSING NOTE DATE OF NOTE: APR 26, 2023@09:58 ENTRY DATE: APR 26, 2023@09:59:24 AUTHOR: DAE BUTLER: URGENCY: STATUS: COMPLETED Homelessness/Food Insecurity Screen: In the past 2 months, have you been living in stable housing that you own, rent, or stay in as part of a household? Yes - Living in stable housing. Are you worried or concerned that in the next 2 months you may NOT have stable housing that you own, rent, or stay in as part of a household? No - Not worried about housing near future [facility] [place] reports the following: Within the past 12 months, you worried whether your food would run out before you got money to buy more. Never true Within the past 12 months, the food you bought just didn't last and you didn't have money to get more. Never true Tobacco Use Screening: The patient is a former tobacco user. The patient quit fifteen or more years ago. PAVE Foot Check: A complete foot check was completed at this encounter. VISUAL INSPECTION: Includes inspection for skin breaks, deformity, erythema, trauma, pallor on elevation, dependent rubor, nail deformities, extensive callus and pitting edema. Visual exam results: Normal PEDAL PULSES: Includes palpation of dorsalis and posterior tibial pulses and signs/symptoms of vascular compromise like pain, pallor, parasthesia or paralysis. Present (even if diminished) SENSORY CHECK: Includes 10 gram Monofilament ([place]) test of sensation. Intact (Greater than or equal to 80% of sites checked) Abnormal (Less than 80% of sites checked): Intact LOW-RISK LOW RISK FOOT EDUCATION: 1. Advised patient not to walk barefoot. Instructed the patient to pay close attention to the style and fit of shoes. 2. Explained the importance of daily foot checks. Explained that loss of sensation leads to callouses. Callouses break down, which result in ulcers that may lead to gangrene and amputation. 3. Stressed the importance of daily foot hygiene. Warm (not hot) bathing of the feet, complete drying and thorough inspection for changes in the condition of the skin constitute daily foot care. Demonstrated how to do a thorough foot check. 4. Emphasized the use of clean, non-restrictive socks/stockings and well fitting shoes. 5. Stressed the importance of immediate follow-up of any foot injuries or ulcers. Explained that he/she should be non- weight bearing whenever there are lesions on the foot, to prevent cellular damage. Level of Understanding: Good /cas/ DAE BUTLER LPN Signed: 04/26/2023 10:02 DAE BUTLER [facility]
--- OUTSIDE RECORDS SUMMARY | 2024-03-20 13:57 | XMS_ITS ---
Author Name [facility] [place] Organization [facility] [place] Address [address] [place] [address] Care Team Providers Care [employer] Operator Name Role Phone SOFI MANCERA Primary [...] [facility] CHARAN Haque Mar 13, 2015 [id number] VERONICA BROWN RT PATIENT MEDICARE (WNR) MEDICARE (M) PART B Aug 12, 2007 PART B [id number] VERONICA BROWN RT PATIENT MEDICARE (WNR) MEDICARE (M) PART A Jan 12, 2004 PART A [id number] VERONICA BROWN RT PATIENT Selected Encounter This section includes the information on record at [place] for the Encounter. Date/Time Encounter Type Encounter Description Reason Pro vider Source Apr 15, 2023 02:59 AM Outpatient Encounter ADMIN PAT ACTIVTIES (MASNONCT) IHE Encounter Template Text not used by [place] Plan of Treatment: Future Appointments (+ 6 months) and Future Tests (+/- 45 days) The Plan of Treatment section includes future care activities [facility] the [facility] This section includes future appointments and future orders which are active, pending or scheduled. Future Appointments This section includes appointments that were scheduled to occur 6 months from the date of the Encounter, up to a maximum of 20 appointments. The data comes from all [place] treatment facilities. Appointment Date/Time Appointment Type Appointme nt Facility Name Apr 24, 2023 11:30 AM AM[facility]ULATORY [facility] MEDICINE [facility] [place] [facility] Apr 24, 2023 12:30 PM AMBULATORY - MEDICINE [facility] [place] [facility] Apr 26, 2023 10:00 AM AMBULATORY - MEDICINE [facility] [place] [facility] Apr 26, 2023 11:00 AM AMBULATORY - MEDICINE [facility] [place] [facility] May 09, 2023 11:00 AM AMBULATORY - MEDICINE [facility] [place] [facility] May 12, 2023 10:00 AM AMBULATORY - MEDICINE [facility] [place] [facility] May 15, 2023 11:20 AM AMBULATORY - MEDICINE [facility] [place] [facility] May 29, 2023 11:00 AM AMBULATORY - MEDICINE [facility] [place] [facility] Jul 05, 2023 03:00 PM AMBULATORY - MEDICINE [facility] [place] [facility] Jul 06, 2023 10:30 AM AMBULATORY - MEDICINE [facility] [place] [facility] August 02, 2023 02:30 PM AMBULATORY - MEDICINE [facility] [place] [facility] August 08, 2023 02:00 PM AMBULATORY - MEDICINE [facility] [place] [facility] Aug 23, 2023 10:30 AM AMBULATORY - REHAB MEDICIN E [facility] [place] [facility] Sep 01, 2023 11:30 AM AMBULATORY - MEDICINE [facility] [place] [facility] Sep 11, 2023 02:30 PM AMBULATORY - MEDICINE [facility] [place] [facility] Sep 15, 2023 10:30 AM AMBULATORY - MEDICINE [facility] [place] [facility] Oct 02, 2023 09:30 AM AMBULATORY - MEDICINE [facility] [place] [facility] Oct 04, 2023 10:00 AM AMBULATORY - MEDICINE [facility] [place] [facility] Oct 11, 2023 09:00 AM AMBULATORY - MEDICINE [facility] [place] [facility] Lab Results: +/- 30 days of the encounter This section includes the Chemistry and Hematology Lab Results on record with [place] for the patient. Radiology Reports and Pathology Reports are provided separately, in subsequent sections. Lab Results This section contains the Chemistry/Hematology Results that were resulted 30 days before or 30 daysafter the date of the Encounter. Date/Time Source Result Type Result - Unit Interpretation Reference Range Comment Apr 26, 2023 11:12 AM [facility] [place] [facility] PO4 Specimen Type: SERUM No comment entered. Ordering Provider: ALYCIA STEVENS Report Released Date/Time: Nov 01, 2022 09:00 PM Reporting Lab: [facility] [place] [address] [address] Performing Lab: [facility] [place] [facility] [address] [facility] [address] PO4 2.5 mg/dL 2.5-5.0 Apr 26, 2023 11:12 AM [facility] [place] [facility] PTH INTACT Specimen Type: SERUM No comment entered. Ordering Provider: ALYCIA STEVENS Report Released Date/Time: Nov 01, 2022 09:00 PM Reporting Lab: [facility] [place] [facility] [address] [facility] [address] Performing Lab: [facility] [place] [facility] [address] [facility] [address] PTH INTACT 118.5 pg/mL H 10-65 Apr 26, 2023 11:12 AM [facility] [place] [facility] URIC ACID Specimen Type: SERUM No comment entered. Ordering Provider: ALYCIA STEVENS Report Released Date/Time: Nov 01, 2022 09:00 PM Reporting Lab: [facility] [place] [facility] [address] [facility] [address] Performing Lab: [facility] [place] [address] [address] URIC ACID 3.1 mg/dL L 3.5-7.2 Apr 26, 2023 11:12 AM [facility] [place] [facility] ALKALINE PHOSPHATASE Specimen Type: SERUM No comment entered. Ordering Provider: ALYCIA STEVENS Report Released Date/Time: Nov 01, 2022 09:00 PM Reporting Lab: [facility] [place] [facility] [address] [facility] [address] Performing Lab: [facility] [place] [facility] [address] [facility] [address] ALKALINE PHOSPHATASE 78 U/L 40-150 Apr 26, 2023 11:12 AM [facility] [place] [facility] FERRITIN Specimen Type: SERUM No comment entered. Ordering Provider: ALYCIA STEVENS Report Released Date/Time: Nov 01, 2022 09:00 PM Reporting Lab: [facility] [place] [address] [address] Performing Lab: [facility] [place] [address] [address] FERRITIN 40 ng/mL 20-300 Apr 26, 2023 11:12 AM [facility] MAGNESIUM Specimen Type: SERUM No comment entered. Ordering Provider: ALYCIA STEVENS Report Released Date/Time: Nov 01, 2022 09:00 PM Reporting Lab: [facility] [place] [address] [address] Performing Lab: [facility] [place] [address] [address] MAGNESIUM 2.0 mg/dL 1.6-2.6 Apr 26, 2023 11:12 AM [facility] CALCIUM Specimen Type: SERUM No comment entered. Ordering Provider: ALYCIA STEVENS Report Released Date/Time: Nov 01, 2022 09:00 PM Reporting Lab: [facility] [place] [facility] [address] [facility] [address] Performing Lab: [facility]TR[facility] [place] [address] [address] CALCIUM 9.4 mg/dL 8.5-10.2 Apr 26, 2023 11:12 AM [facility] IRON & TIBC PANEL Specimen Type: SERUM No comment entered. Ordering Provider: ALYCIA STEVENS Report Released Date/Time: Nov 01, 2022 09:00 PM Reporting Lab: [facility] [address] [facility] [address] Performing Lab: [facility]ENTERUSETS [address] [address] TIBC 341 ug/dL 204-475 IRON 69 ug/dL 40-160 Transferrin Saturation 20.3 20.0-50.0 Apr 26, 2023 11:12 AM [facility] CBC Specimen Type: BLOOD No comment entered. Ordering Provider: ALYCIA STEVENS Report Released Date/Time: Nov 01, 2022 09:00 PM Reporting Lab: [facility]USETS [address] [address] Performing Lab: [facility] [address] [address] WBC 8.31 10*3/uL 4.50-11.00 RBC 4.42 10*6/uL 4.23-5.66 HGB 13.2 g/dL 12.8-17 HCT 41.3 39.2-50.4 MCV 93.4 fL 82-99 MCHC 32.0 g/dL 30.8-35.1 PLT 196 10*3/uL 140-360 RDW-CV 14.3 12.0-16.0 MCH 29.9 pg 26.2-32.6 Apr 26, 2023 11:12 AM [facility] CHOLESTEROL Specimen Type: SERUM No comment entered. Ordering Provider: ALYCIA STEVENS Report Released Date/Time: Nov 01, 2022 09:00 PM Reporting Lab: [facility]ENTERUSE[address] [address] Performing Lab: [facility] [address] [address] CHOLESTEROL 131 mg/dL Apr 26, 2023 11:12 AM [facility] VITAMIN D (25-[place]) Specimen Type: SERUM No comment entered. Ordering Provider: ALYCIA STEVENS Report Released Date/Time: Nov 01, 2022 09:00 PM Reporting Lab: [facility] [address] [facility] [address] Performing Lab: [address] [address] VITAMIN D (25-OH) 36 ng/mL 20-50 Apr 26, 2023 11:12 AM [facility] HDL CHOLESTEROL Specimen Type: SERUM No comment entered. Ordering Provider: ALYCIA STEVENS A Report Released Date/Time: Nov 01, 2022 09:00 PM Reporting Lab: [facility] [address] [facility] [address] Performing Lab: [address] [address] HDL CHOLESTEROL 49 mg/dL 40-60 Apr 26, 2023 11:12 AM [facility] MICROALBUMIN CREATININE RATIO PANEL Specimen Type: URINE No comment entered. Ordering Provider: ALYCIA STEVENS Report Released Date/Time: Nov 01, 2022 09:00 PM Reporting Lab: [facility] [address] [facility] [address] Performing Lab: [address] [address] MICROALBUMIN/C REATININE RATIO 129.2 mg/g H 0-29.9 MICROALBUMIN,Q UANTITATIVE 12.5 mg/dL RR UNAVAIL CREATININE URINE 96.73 mg/dL Apr 26, 2023 11:12 AM [facility] BASIC METABOLIC PANEL (non-fasting) Specimen Type: SERUM No comment entered. Ordering Provider: ALYCIA STEVENS Report Released Date/Time: Nov 01, 2022 09:00 PM Reporting Lab: [address] [address] Performing Lab: [address] [place] [address] UREA NITROGEN 23 mg/dL 7-25 GLUCOSE 136 mg/dL H 65-100 SODIUM 140 mmol/L 135-145 POTASSIUM 4.7 mmol/L 3.5-5.0 CHLORIDE 109 mmol/L 100-110 CO2 25 meq/L 20-30 CREATININE, Serum 2.01 mg/dL H 0.50-1.40 eGFR(CKD-EPI 2020) 32 mL/min L >60 Apr 06, 2023 11:39 AM [facility] TSH Specimen Type: SERUM No comment entered. Ordering Provider: SOFI MANCERA Report Released Date/Time: Apr 05, 2023 04:18 PM Reporting Lab: [address] [address] Performing Lab: [address] [address] TSH 1.33 u[IU]/mL 0.35-5.00 Apr 06, 2023 11:39 AM [facility] LIVER FUNCTION Specimen Type: SERUM No comment entered. Ordering Provider: SOFI MANCERA Report Released Date/Time: Apr 05, 2023 04:18 PM Reporting Lab: [address] [address] Performing Lab: [address] [address] PROTEIN,TOTAL 6.3 g/dL 6.0-8.3 ALBUMIN 3.6 g/dL 3.5-5.0 ALKALINE PHOSPHATASE 70 U/L 40-150 AST 14 U/L 5-34 ALT 10 U/L BILIRUBIN, TOTAL 0.5 mg/dL 0.2-1.2 Apr 06, 2023 11:39 AM [facility] HEMOGLOBIN A1C PANEL Specimen Type: [...] Apr 05, 2023 04:18 PM Reporting Lab: [facility]MARYTRN [facility] [address] [facility] [address] Performing Lab: [facility] TRN [facility] [address] [facility] [address] HEMOGLOBIN A1C 6.4 H 4.0-5.6 Apr 06, 2023 11:39 AM [facility]ENTERN [facility]ENTERUS[facility] LIPID PANEL FASTING Specimen Type: SERUM No comment entered. Ordering Provider: SOFI MANCERA Report Released Date/Time: Apr 05, 2023 04:18 PM Reporting Lab: [facility]RS[facility] CENTERN [facility]ENTERUSETS [facility] [address] [facility] [address] Performing Lab: [facility]RL [facility]ERN [facility]ENTERUSETS [facility] [address] [facility] [address] CHOLESTEROL 142 mg/dL TRIGLYCERIDE 118 mg/dL 0-150 LDL calculated 65 mg/dL 0-129 CHOL/HDL 2.7 HDL CHOLESTEROL 53 mg/dL 40-60 Apr 06, 2023 11:39 AM [facility] MICROALBUMIN CREATININE RATIO PANEL Specimen Type: URINE No comment entered. Ordering Provider: SOFI MANCERA Report Released Date/Time: Apr 05, 2023 04:18 PM Reporting Lab: [facility]N [facility]ENTER[facility] [address] [facility] [address] Performing Lab: [facility]RS[facility] CENTERN [facility]ENTERUSETS [facility] [address] [facility] [address] MICROALBUMIN/C REATININE RATIO 130.6 mg/g H 0-29.9 MICROALBUMIN,Q UANTITATIVE 12.8 mg/dL RR UNAVAIL CREATININE URINE 97.99 mg/dL Apr 06, 2023 11:39 AM [facility] URIC ACID Specimen Type: SERUM No comment entered. Ordering Provider: SOFI MANCERA Report Released Date/Time: Apr 05, 2023 04:19 PM Reporting Lab: [facility] INFIRMARYTRN [facility]ENTERUSETS [facility] [address] [facility] [address] Performing Lab: [facility]RS[facility] CENTERN [facility]ENTERUSETS [facility] [address] [facility] [address] URIC ACID 2.9 mg/dL L 3.5-7.2 Apr 06, 2023 11:39 AM [facility] URINALYSIS CLEAN CATCH Specimen Type: URINE Comment: If Glucose = >500 and Ketones are positive, please alert the Physician. Ordering Provider: SOFI MANCERA Report Released Date/Time: Apr 05, 2023 04:18 PM Reporting Lab: [address] [address] Performing Lab: [facility] [address] [facility] [address] UA COLOR Light-Yellow Yellow UA APPEARANCE Clear Clear UA GLUCOSE NEGATIVE mg/dL Negative UA KETONES NEGATIVE mg/dL Negative UA BLOOD NEGATIVE mg/dL Negative UA PROTEIN 20 mg/dL Negative UA NITRITE NEGATIVE mg/dL Negative UA BILIRUBIN NEGATIVE mg/dL Negative UA SPECIFIC GRAVITY 1.017 1.016-1.02 2 UA pH 6.0 5.0-9.0 UA UROBILINOGEN <2.0 mg/dL <2.0 UA LEUKOCYTE NEGATIVE Negative Apr 06, 2023 11:39 AM [facility] BASIC METABOLIC PANEL (fasting) Specimen Type: SERUM No comment entered. Ordering Provider: SOFI MANCERA Report Released Date/Time: Apr 05, 2023 04:18 PM Reporting Lab: [facility] [address] [facility] [address] Performing Lab: [address] [address] UREA NITROGEN 23 mg/dL 7-25 GLUCOSE 163 mg/dL H 65-100 SODIUM 140 mmol/L 135-145 POTASSIUM 4.7 mmol/L 3.5-5.0 CHLORIDE 108 mmol/L 100-110 CO2 23 meq/L 20-30 CREATININE, Serum 1.90 mg/dL H 0.50-1.40 eGFR(CKD-EPI 2020) 34 mL/min L >60 Apr 06, 2023 11:39 AM [facility] CBC AND DIFF (AUTO) Specimen Type: BLOOD No comment entered. Ordering Provider: SOFI MANCERA Report Released Date/Time: Apr 05, 2023 04:18 PM Reporting Lab: [facility] [address] [facility] [address] Performing Lab: [facility] [address] [facility] [address] WBC 7.36 10*3/uL 4.50-11.00 RBC 4.36 10*6/uL 4.23-5.66 HGB 13.0 g/dL 12.8-17 HCT 40.9 39.2-50.4 MCV 93.8 fL 82-99 MCHC 31.8 g/dL 30.8-35.1 PLT 188 10*3/uL 140-360 RDW-CV 13.6 12.0-16.0 Owsley, Abs 0.63 10*3/uL 0.30-1.10 MCH 29.8 pg 26.2-32.6 Neut % 66.9 43.7-75.8 Lymph % 19.2 14.0-42.3 Owsley % 8.6 5.1-13.7 Eos % 4.6 0.4-6.8 Baso % 0.4 0.1-2.0 Neut, Abs 4.93 10*3/uL 2.20-7.60 Lymph, Abs 1.41 10*3/uL 1.00-3.20 Eos, Abs 0.34 10*3/uL 0.03-0.44 Baso, Abs 0.03 10*3/uL 0.01-0.13 Immature Gran % 0.3 0.0-0.7 Immature Gran, Abs 0.02 10*3/uL 0.00-0.06 Mar 23, 2023 02:03 PM [facility] HDL CHOLESTEROL Specimen Type: SERUM No comment entered. Ordering Provider: ALYCIA STEVENS Report Released Date/Time: Mar 14, 2023 10:53 AM Reporting Lab: [facility] [address] [facility] [address] Performing Lab: [address] [address] HDL CHOLESTEROL 49 mg/dL 40-60 Mar 23, 2023 02:03 PM [facility] MICROALBUMIN CREATININE RATIO PANEL Specimen Type: URINE No comment entered. Ordering Provider: ALYCIA STEVENS Report Released Date/Time: Mar 14, 2023 10:53 AM Reporting Lab: [address] [address] Performing Lab: [facility] [address] [address] MICROALBUMIN/C REATININE RATIO 138.3 mg/g H 0-29.9 MICROALBUMIN,Q UANTITATIVE 17.1 mg/dL RR UNAVAIL CREATININE URINE 123.64 mg/dL Mar 23, 2023 02:03 PM [facility] FERRITIN Specimen Type: SERUM No comment entered. Ordering Provider: ALYCIA STEVENS Report Released Date/Time: Mar 14, 2023 10:53 AM Reporting Lab: [address] [address] Performing Lab: [address] [address] FERRITIN 34 ng/mL 20-300 Mar 23, 2023 02:03 PM [facility] MAGNESIUM Specimen Type: SERUM No comment entered. Ordering Provider: ALYCIA STEVENS Report Released Date/Time: Mar 14, 2023 10:53 AM Reporting Lab: [address] [address] Performing Lab: [address] [address] MAGNESIUM 2.0 mg/dL 1.6-2.6 Mar 23, 2023 02:03 PM [facility] IRON & TIBC PANEL Specimen Type: SERUM No comment entered. Ordering Provider: ALYCIA STEVENS Report Released Date/Time: Mar 14, 2023 10:53 AM Reporting Lab: [address] [address] Performing Lab: [address] [address] TIBC 347 ug/dL 204-475 IRON 65 ug/dL 40-160 Transferrin Saturation 18.7 L 20.0-50.0 Mar 23, 2023 02:03 PM [facility] [place] [facility] CALCIUM Specimen Type: SERUM No comment entered. Ordering Provider: ALYCIA STEVENS Report Released Date/Time: Mar 14, 2023 10:53 AM Reporting Lab: [facility] [place] [facility] [address] [facility] [address] Performing Lab: [facility] [place] [facility] [address] [facility] [address] CALCIUM 9.1 mg/dL 8.5-10.2 Mar 23, 2023 02:03 PM [facility] [place] [facility] VITAMIN D (25-OH) Specimen Type: SERUM No comment entered. Ordering Provider: ALYCIA STEVENS Report Released Date/Time: Mar 14, 2023 10:53 AM Reporting Lab: [facility] [place] [facility] [address] [facility] [address] Performing Lab: [facility] [place] [address] [address] VITAMIN D (25-OH) 33 ng/mL 20-50 Mar 23, 2023 02:03 PM [facility] CHOLESTEROL Specimen Type: SERUM No comment entered. Ordering Provider: ALYCIA STEVENS Report Released Date/Time: Mar 14, 2023 10:53 AM Reporting Lab: [facility] [place] [facility] [address] [facility] [address] Performing Lab: [facility] [place] [address] [address] CHOLESTEROL 138 mg/dL Mar 23, 2023 02:03 PM [facility] [place] [facility] PO4 Specimen Type: SERUM No comment entered. Ordering Provider: ALYCIA STEVENS Report Released Date/Time: Mar 14, 2023 10:53 AM Reporting Lab: [facility] [place] [facility] [address] [facility] [address] Performing Lab: [facility] [place] [address] [address] PO4 2.2 mg/dL L 2.5-5.0 Mar 23, 2023 02:03 PM [facility] [place] [facility] URIC ACID Specimen Type: SERUM No comment entered. Ordering Provider: ALYCIA STEVENS Report Released Date/Time: Mar 14, 2023 10:53 AM Reporting Lab: [facility] [place] [facility] [address] [facility] [address] Performing Lab: [facility] [place] [facility] [address] [facility] [address] URIC ACID 3.0 mg/dL L 3.5-7.2 Mar 23, 2023 02:03 PM [facility] [place] [place] [facility] PTH INTACT Specimen Type: SERUM No comment entered. Ordering Provider: ALYCIA STEVENS Report Released Date/Time: Mar 14, 2023 10:53 AM Reporting Lab: [facility] [place] [facility] [address] [facility] [address] Performing Lab: [facility] [address] [address] PTH INTACT 116.9 pg/mL H -Mar 23, 2023 02:03 PM [facility]US[facility] ALKALINE PHOSPHATASE Specimen Type: SERUM No comment entered. Ordering Provider: ALYCIA STEVENS Report Released Date/Time: Mar 14, 2023 10:53 AM Reporting Lab: [facility] [place] [facility] [address] [facility] [address] Performing Lab: [facility] [address] [address] ALKALINE PHOSPHATASE 74 U/L 40-150 Mar 23, 2023 02:03 PM [facility] CBC Specimen Type: BLOOD No comment entered. Ordering Provider: ALYCIA STEVENS Report Released Date/Time: Mar 14, 2023 10:53 AM Reporting Lab: [facility] [place] [facility] [address] [facility] [address] Performing Lab: [facility]N [facility] [address] [address] WBC 6.76 10*3/uL 4.50-11.00 RBC 4.44 10*6/uL 4.23-5.66 HGB 13.6 g/dL 12.8-17 HCT 41.6 39.2-50.4 MCV 93.7 fL 82-99 MCHC 32.7 g/dL 30.8-35.1 PLT 188 10*3/uL 140-360 RDW-CV 13.6 12.0-16.0 MCH 30.6 pg 26.2-32.6 Mar 23, 2023 02:03 PM [facility] BASIC METABOLIC PANEL (non-fasting) Specimen Type: SERUM No comment entered. Ordering Provider: ALYCIA STEVENS Report Released Date/Time: Mar 14, 2023 10:53 AM Reporting Lab: [facility] [address] [facility] [id number] Performing Lab: [address] [id number] UREA NITROGEN 20 mg/dL 7-25 GLUCOSE 173 [...] and tobacco- related health factors from the [place] facility where the Encounter took place. Current Smoking Status This section includes the most current smoking, or tobacco-related health factor, from the [place] facility where the Encounter took place. Date/Time Current Smoking Status Comment María Elena ity Mar 30, 2022 11:00 AM CO-TOBACCO QUIT 15 YRS OR MORE [facility] Tobacco Use History This section includes a history of the smoking, or tobacco-related health factors, that were collected on or before the date of the Encounter. The data comes from the [place] facility where the Encounter took place. Date/Time Smoking Status/Tobacco Use Comment F acility Mar 30, 2022 11:00 AM CO-TOBACCO QUIT 15 YRS OR MORE [facility] Mar 17, 2021 01:30 PM VA-TOBACCO FORMER USER [facility] [place] [facility] Mar 17, 2021 01:30 PM VA-TOBACCO NEVER USED [facility] [place] [facility] Mar 17, 2021 01:30 PM VA-TOBACCO QUIT 15 YRS OR MORE [facility] [place] [facility] Mar 31, 2020 10:30 AM VA-TOBACCO FORMER USER [facility] [place] [facility] Mar 31, 2020 10:30 AM VA-TOBACCO QUIT 15 YRS OR MORE [facility] [place] [facility] Nov 23, 2018 12:07 PM VA-TOBACCO FORMER USER [facility] [place] [facility] Nov 23, 2018 12:07 PM VA-TOBACCO QUIT 15 YRS OR MORE [facility] [place] [facility] Nov 22, 2017 10:02 AM VA-TOBACCO NEVER USED CO [facility] [place] [facility] Mar 14, 2017 09:31 AM LIFETIME NON-TOBACCO USER [facility] [place] [facility] Mar 01, 2016 02:51 PM LIFETIME NON-TOBACCO USER [facility] [place] [facility] Feb 10, 2015 09:31 AM QUIT TOBACCO USE > 7 YEARS AGO quit in 1964 [place] [facility] [place] [facility] Encounter Notes: All associated encounter notes This section contains the clinical notes associated to the Encounter. Date/Time Encounter Note(s) Provider Source Apr 15, 2023 02:59 AM PHARMACY NOTE: LOCAL TITLE: PHARMACY CUSTOMER CARE MEDICATION RENEWAL STANDARD TITLE: PHARMACY NOTE DATE OF NOTE: APR 15, 2023@02:59 ENTRY DATE: APR 15, 2023@02:59:20 AUTHOR: JACQUELYN BENNETT COSIGNER: URGENCY: STATUS: COMPLETED Date: Apr Division: [place] Pt referred by Pharmacy Call Center for medication renewal: Non-controlled/maintenan ce medication Medications requested: [id number] MULTIVIT/OPHTH AREDS2/LUTE/ZEAX CAP/TAB Defer to specialty clinic To be mailed . Please review and renew if appropriate. *This note was generated by [facility] Pharm[facility] Customer Care. If you have any questions or need assistance, do not contact this author. Please refer all questions to your local, on-site pharmacy departments. /cas/ JACQUELYN BENNETT [facility] [place]/Pharmacy Customer Care Signed: 04/15/2023 02:59 Receipt Acknowledged By: 04/17/2023 07:44 /cas/ DALLIN MASON OD STAFF DECORATING CONSULTANT JACQUELYN BENNETT [facility]
--- OUTSIDE RECORDS SUMMARY | 2024-03-20 13:57 | XMS_ITS | Encounter Summary ---
Author Name [facility] Organization [facility] Address [address] [place] [address] Care Team Providers Care Reconnaissance Man Name Role Phone SOFI MANCERA Primary Care Provider Jose haque Insurance Providers: All historical and current [...] [place] JONELLE Haque Mar 13, 2015 [id number] VERONICA BROWN RT PATIENT MEDICARE (WNR) MEDICARE (M) PART B Aug 12, 2007 PART B [id number] VERONICA BROWN RT PATIENT MEDICARE (WNR) MEDICARE (M) PART A Jan 12, 2004 PART A [id number] VERONICA BROWN RT PATIENT Selected Encounter This section includes the information on record at [facility] for the Encounter. Date/Time Encounter Type Encounter Description Reason Pro vider Source IHE Encounter Template Text not used by [facility]
--- OUTSIDE RECORDS SUMMARY | 2024-03-20 13:57 | XMS_ITS | Encounter Summary ---
Author Name [facility] Organization [facility] Address [address] [place] [address] Care Team Providers Care Class C Driver Name Role Phone SOFI MANCERA Primary Care [...] to Policy [place] JONELLE ROBLEDOEX VAIBHAV Александр Mar 13, 2015 [id number] VERONICA BROWN RT PATIENT MEDICARE (WNR) MEDICARE (M) PART B Aug 12, 2007 PART B [id number] VERONICA BROWN RT PATIENT MEDICARE (WNR) MEDICARE (M) PART A Jan 12, 2004 PART A [id number] VERONICA BROWN RT PATIENT Selected Encounter This section includes the information on record at [place] for the Encounter. Date/Time Encounter Type Encounter Description Reason Pro vider Source May 12, 2023 03:19 PM Outpatient Encounter OPTOMETRY E Encounter Template Text not used by [facility] Plan of Treatment: Future Appointments (+ 6 months) and Future Tests (+/- 45 days) The Plan of Treatment section includes future care activities for the patient from all [facility]. This section includes future appointments and future orders which are active, pending or scheduled. Future Appointments This section includes appointments that were scheduled to occur 6 months from the date of the Encounter, up to a maximum of 20 appointments. The data comes from all [place] treatment facilities. Appointment Date/Time Appointment Type Appointme nt Facility Name May 15, 2023 11:20 AM AMBULATORY - [...] [facility] [place] [facility] Sep 11, 2023 02:30 PM AMBULATORY - MEDICINE [facility] [place] [facility] Sep 15, 2023 10:30 AM AMBULATORY - MEDICINE [facility] [place] [facility] Oct 02, 2023 09:30 AM AMBULATORY - MEDICINE [facility] [place] [facility] Oct 04, 2023 10:00 AM AMBULATORY - MEDICINE [facility] [facility] Oct 11, 2023 09:00 AM AMBULATORY - MEDICINE [facility] [facility] Oct 18, 2023 10:00 AM AMBULATORY - MEDICINE [facility] [facility] Oct 30, 2023 09:00 AM AMBULATORY - MEDICINE [facility] [facility] Nov 06, 2023 01:00 PM AMBULATORY - MEDICINE [facility] [place] [facility] Lab Results: +/- 30 days of the encounter This section includes the Chemistry and Hematology Lab Results on record with [place] for the patient. Radiology Reports and Pathology Reports are provided separately, in subsequent sections. Lab Results This section contains the Chemistry/Hematology Results that were resulted 30 days before or 30 daysafter the date of the Encounter. Date/Time Source Result Type Result - Unit Interpretation Reference Range Comment Apr 26, 2023 11:12 AM [facility] [place] [facility] PO4 Specimen Type: SERUM No comment entered. Ordering Provider: NEENA STEVENS Report Released Date/Time: Nov 01, 2022 09:00 PM Reporting Lab: [facility] [place] [facility] [address] [address] Performing Lab: [facility] [place] [place] [address] [address] PO4 2.5 mg/dL 2.5-5.0 Apr 26, 2023 11:12 AM [facility] [place] [facility] PTH INTACT Specimen Type: SERUM No comment entered. Ordering Provider: NEENA STEVENS Report Released Date/Time: Nov 01, 2022 09:00 PM Reporting Lab: [facility] [place] [facility] [address] [address] Performing Lab: [facility] [place] [address] [address] PTH INTACT 118.5 pg/mL H 10-65 Apr 26, 2023 11:12 AM [facility] URIC ACID Specimen Type: SERUM No comment entered. Ordering Provider: NEENA STEVENS Report Released Date/Time: Nov 01, 2022 09:00 PM Reporting Lab: [facility] [place] [facility] [address] [address] Performing Lab: [place] [facility] [place] [address] [address] URIC ACID 3.1 mg/dL L 3.5-7.2 Apr 26, 2023 11:12 AM [facility] ALKALINE PHOSPHATASE Specimen Type: SERUM No comment entered. Ordering Provider: NEENA STEVENS Report Released Date/Time: Nov 01, 2022 09:00 PM Reporting Lab: [facility] [place] [place] [address] [place] [address] Performing Lab: [facility] [address] [address] ALKALINE PHOSPHATASE 78 U/L 40-150 Apr 26, 2023 11:12 AM [facility] FERRITIN Specimen Type: SERUM No comment entered. Ordering Provider: NEENA STEVENS Report Released Date/Time: Nov 01, 2022 09:00 PM Reporting Lab: [facility]N [facility]ITALUSE[facility] [address] [address] Performing Lab: [facility]ITALUSE[address] [address] FERRITIN 40 ng/mL 20-300 Apr 26, 2023 11:12 AM [facility] IRON & TIBC PANEL Specimen Type: SERUM No comment entered. Ordering Provider: NEENA STEVENS Report Released Date/Time: Nov 01, 2022 09:00 PM Reporting Lab: [facility] [address] Performing Lab: [facility] [address] TIBC 341 ug/dL 204-475 IRON 69 ug/dL 40-160 Transferrin Saturation 20.3 20.0-50.0 Apr 26, 2023 11:12 AM [facility] MAGNESIUM Specimen Type: SERUM No comment entered. Ordering Provider: NENEA STEVENS Report Released Date/Time: Nov 01, 2022 09:00 PM Reporting Lab: [facility]N [facility]ITALUSETS [address] [address] Performing Lab: [facility] [address] MAGNESIUM 2.0 mg/dL 1.6-2.6 Apr 26, 2023 11:12 AM [facility] CBC Specimen Type: BLOOD No comment entered. Ordering Provider: NEENA STEVENS Report Released Date/Time: Nov 01, 2022 09:00 PM Reporting Lab: [facility] [address] [address] Performing Lab: [facility]ITALRUSA [facility]ITALTR[facility] [place] [facility] [address] [address] WBC 8.31 10*3/uL 4.50-11.00 RBC 4.42 10*6/uL 4.23-5.66 HGB 13.2 g/dL 12.8-17 HCT 41.3 39.2-50.4 MCV 93.4 fL 82-99 MCHC 32.0 g/dL 30.8-35.1 PLT 196 10*3/uL 140-360 RDW-CV 14.3 12.0-16.0 MCH 29.9 pg 26.2-32.6 Apr 26, 2023 11:12 AM [facility]N [facility]ITALUSE[facility] CALCIUM Specimen Type: SERUM No comment entered. Ordering Provider: NEENA STEVENS Report Released Date/Time: Nov 01, 2022 09:00 PM Reporting Lab: [facility]ITALUSETS [address] [address] Performing Lab: [facility]N [facility]ITALUSETS [address] [address] CALCIUM 9.4 mg/dL 8.5-10.2 Apr 26, 2023 11:12 AM [facility]ITALUSEOUR [facility] VITAMIN D (25-OH) Specimen Type: SERUM No comment entered. Ordering Provider: NEENA STEVENS Report Released Date/Time: Nov 01, 2022 09:00 PM Reporting Lab: [facility]ITALRUSA [facility]ITALTR[facility] [place] [address] [address] Performing Lab: [facility]ITALRUSA [facility]OSPITALTRN [facility]ITALUSETS [address] [address] VITAMIN D (25-OH) 36 ng/mL 20-50 Apr 26, 2023 11:12 AM [facility]N [facility]ITALUSEOUR [facility] HDL CHOLESTEROL Specimen Type: SERUM No comment entered. Ordering Provider: NEENA STEVENS Report Released Date/Time: Nov 01, 2022 09:00 PM Reporting Lab: [facility]ITALRMED[facility]N [facility]PITALUSETS [address] [address] Performing Lab: [facility]N [facility]ITALUSEOUR [facility] [address] [address] HDL CHOLESTEROL 49 mg/dL 40-60 Apr 26, 2023 11:12 AM [facility] CHOLESTEROL Specimen Type: SERUM No comment entered. Ordering Provider: NEENA STEVENS Report Released Date/Time: Nov 01, 2022 09:00 PM Reporting Lab: [facility] [address] [address] Performing Lab: [facility]N [facility] [address] [address] CHOLESTEROL 131 mg/dL Apr 26, 2023 11:12 AM [facility] MICROALBUMIN CREATININE RATIO PANEL Specimen Type: URINE No comment entered. Ordering Provider: NEENA STEVENS Report Released Date/Time: Nov 01, 2022 09:00 PM Reporting Lab: [facility] [address] [address] Performing Lab: [facility] [address] MICROALBUMIN/C REATININE RATIO 129.2 mg/g H 0-29.9 MICROALBUMIN,Q UANTITATIVE 12.5 mg/dL RR UNAVAIL CREATININE URINE 96.73 mg/dL Apr 26, 2023 11:12 AM [facility] BASIC METABOLIC PANEL (non-fasting) Specimen Type: SERUM No comment entered. Ordering Provider: NEENA STEVENS Report Released Date/Time: Nov 01, 2022 09:00 PM Reporting Lab: [facility] [address] [address] Performing Lab: [address] [address] UREA NITROGEN 23 mg/dL 7-25 GLUCOSE 136 mg/dL H 65-100 SODIUM 140 mmol/L 135-145 POTASSIUM 4.7 mmol/L 3.5-5.0 CHLORIDE 109 mmol/L 100-110 CO2 25 meq/L 20-30 CREATININE, Serum 2.01 mg/dL H 0.50-1.40 eGFR(CKD-EPI 2020) 32 mL/min L >60 Social History: Smoking Status (Most current) and Tobacco Use (All prior to encounter date) This section includes the most current, and the historical, smoking and tobacco- related health factors from the [place] facility where the Encounter took place. Current Smoking Status This section includes the most current smoking, or tobacco-related health factor, from the [place] facility where the Encounter took place. Date/Time Current Smoking Status Comment Facil ity Apr 26, 2023 10:00 AM VA-TOBACCO FORMER USER [facility] [place] [facility] Tobacco Use History This section includes a history of the smoking, or tobacco-related health factors, that were collected on or before the date of the Encounter. The data comes from the [place] facility where the Encounter took place. Date/Time Smoking Status/Tobacco Use Comment Gamaliel acshahbaz Apr 26, 2023 10:00 AM VA-TOBACCO QUIT [...] 01, 2016 02:51 PM LIFETIME NON-TOBACCO USER [facility] Feb 10, 2015 09:31 AM QUIT TOBACCO USE > 7 YEARS AGO quit in 1964 [facility] Encounter Notes: All associated encounter notes This section contains the clinical notes associated to the Encounter. Date/Time Encounter Note(s) Provider Source May 12, 2023 03:19 PM CLERICAL NOTE: LOCAL TITLE: APPOINTMENT NO SHOW STANDARD TITLE: CLERICAL NOTE DATE OF NOTE: MAY 12, 2023@15:19 ENTRY DATE: MAY 12, 2023@15:19:31 AUTHOR: JOSH SANTOS EXP COSIGNER: URGENCY: STATUS: COMPLETED Patient Name: JACQUELYN BROWN Patient SSN: [id number] Date and time of Appointment No show : 05/12/23 15:19 PATIENT PHONE - PHONE NUMBER [[id number]] - [phone] Patient's medical record was reviewed. 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
--- OUTSIDE RECORDS SUMMARY | 2024-03-20 13:57 | XMS_ITS | Encounter Summary ---
Author Name [facility] [place] [facility] [place] Address [address] [place] [address] Care Team Providers Care Home Care Chaplain Name Role Phone SOFI MANCERA Primary Care [...] Relationship to Policy [place] CARY Haque Mar 13, 2015 [id number] VERONICA BROWN RT PATIENT MEDICARE (WNR) MEDICARE (M) PART B Aug 12, 2007 PART B [id number] VERONICA BROWN RT PATIENT MEDICARE (WNR) MEDICARE (M) PART A Jan 12, 2004 PART A [id number] VERONICA BROWN RT PATIENT Selected Encounter This section includes the information on record at [place] for the Encounter. Date/Time Encounter Type Encounter Description Reason Pro vider Source Apr 18, 2023 10:09 AM Outpatient Encounter PRIMARY CARE/MEDICINE IHE Encounter Template Text not used by [place] Plan of Treatment: Future Appointments (+ 6 months) and Future Tests (+/- 45 days) The Plan of Treatment section includes future care activities for the patient [facility] [place] [facility] This section includes future appointments [...] - MEDICINE [facility] [place] [facility] Apr 24, 2023 12:30 PM AMBULATORY - MEDICINE [facility] [place] [facility] Apr 26, 2023 10:00 AM AM[facility]ULAT[facility] [place] [facility]IC[facility] [place] [facility] Apr 26, 2023 11:00 AM AM[facility]ULAT[facility]IC[facility] [place] [facility] May 09, 2023 11:00 AM AMBULATORY [facility]IC[facility] [place] [facility] May 12, 2023 10:00 AM AMBULATORY [facility]ICINE [facility] [place] [facility] May 15, 2023 11:20 AM AMBULATORY - MEDICINE [facility] [place] [facility] May 29, 2023 11:00 AM AMBULATORY - [facility]ICINE [facility] [place] [facility] Jul 05, 2023 03:00 PM AMBULATORY - MEDICINE [facility] [place] [facility] Jul 06, 2023 10:30 AM AMBULATORY - [facility]ICINE [facility] [place] [facility] August 02, 2023 02:30 PM AMBULATORY - MEDICINE [facility] [place] [facility] August 08, 2023 02:00 PM AMBULATORY - MEDICINE [facility] [place] [facility] Aug 23, 2023 10:30 AM AMBULATORY - REHAB MEDICIN E [facility] [place] [facility] Sep 01, 2023 11:30 AM AMBULATORY - MEDICINE [facility] [place] [facility] Sep 11, 2023 02:30 PM AMBULATORY - MEDICINE [facility] [place] [facility] Sep 15, 2023 10:30 AM AMBULATORY - MEDICINE [facility] [place] [facility] Oct 02, 2023 09:30 AM AMBULATORY - MEDICINE [facility] [place] [facility] Oct 04, 2023 10:00 AM AM[place] [facility] [place] [facility] Oct 11, 2023 09:00 AM [place] [facility] [place] [facility] Lab Results: +/- 30 days of the [...] PM Reporting Lab: [place] [facility] [place] [facility] [address] [facility] [address] Performing Lab: [place] [facility] [place] [facility] [address] [facility] [address] PO4 2.5 mg/dL 2.5-5.0 Apr 26, 2023 11:12 AM [place] [facility] [place] [facility] PTH INTACT Specimen Type: SERUM No comment entered. Ordering Provider: ALYCIA STEVENS Report Released Date/Time: Nov 01, 2022 09:00 PM Reporting Lab: [place] [facility] [place] [facility] [address] [facility] [address] Performing Lab: [place] [facility] [place] [facility] [address] [facility] [address] PTH INTACT 118.5 pg/mL H 10-65 Apr 26, 2023 11:12 AM [place] [facility] [place] [facility] URIC ACID Specimen Type: SERUM No comment entered. Ordering Provider: ALYCIA STEVENS Report Released Date/Time: Nov 01, 2022 09:00 PM Reporting Lab: [place] [facility] [place] [facility] [address] [facility] [address] Performing Lab: [place] [facility] [place] [facility] [address] [facility] [address] URIC ACID 3.1 mg/dL L 3.5-7.2 Apr 26, 2023 11:12 AM [facility] [place] [facility] ALKALINE PHOSPHATASE Specimen Type: SERUM No comment entered. Ordering Provider: ALYCIA STEVENS Report Released Date/Time: Nov 01, 2022 09:00 PM Reporting Lab: [facility] [place] [facility] [address] [facility] [address] Performing Lab: [place] [facility] [facility] [address] [facility] [address] ALKALINE PHOSPHATASE 78 U/L 40-150 Apr 26, 2023 11:12 AM [facility] FERRITIN Specimen Type: SERUM No comment entered. Ordering Provider: ALYCIA STEVENS Report Released Date/Time: Nov 01, 2022 09:00 PM Reporting Lab: [facility] [place] [facility] [address] [facility] [address] Performing Lab: [facility] [place] [address] [address] FERRITIN 40 ng/mL 20-300 Apr 26, 2023 11:12 AM [facility] CALCIUM Specimen Type: SERUM No comment entered. Ordering Provider: ALYCIA STEVENS Report Released Date/Time: Nov 01, 2022 09:00 PM Reporting Lab: [facility] [place] [facility] [address] [facility] [address] Performing Lab: [facility] [place] [address] [address] CALCIUM 9.4 mg/dL 8.5-10.2 Apr 26, 2023 11:12 AM [facility] MAGNESIUM Specimen Type: SERUM No comment entered. Ordering Provider: AYLCIA STEVENS Report Released Date/Time: Nov 01, 2022 09:00 PM Reporting Lab: [facility] [place] [facility] [address] [facility] [address] Performing Lab: [facility] [place] [address] [address] MAGNESIUM 2.0 mg/dL 1.6-2.6 Apr 26, 2023 11:12 AM [facility] IRON & TIBC PANEL Specimen Type: SERUM No comment entered. Ordering Provider: ALYCIA STEVENS Report Released Date/Time: Nov 01, 2022 09:00 PM Reporting Lab: [facility] [address] [facility] [address] Performing Lab: [address] [address] TIBC 341 ug/dL 204-475 IRON 69 ug/dL 40-160 Transferrin Saturation 20.3 20.0-50.0 Apr 26, 2023 11:12 AM [facility] CBC Specimen Type: BLOOD No comment entered. Ordering Provider: ALYCIA STEVENS Report Released Date/Time: Nov 01, 2022 09:00 PM Reporting Lab: [address] [address] Performing Lab: [address] [address] WBC 8.31 10*3/uL 4.50-11.00 RBC 4.42 10*6/uL 4.23-5.66 HGB 13.2 g/dL 12.8-17 HCT 41.3 39.2-50.4 MCV 93.4 fL 82-99 MCHC 32.0 g/dL 30.8-35.1 PLT 196 10*3/uL 140-360 RDW-CV 14.3 12.0-16.0 MCH 29.9 pg 26.2-32.6 Apr 26, 2023 11:12 AM [facility] VITAMIN D (25-[place]) Specimen Type: SERUM No comment entered. Ordering Provider: ALYCIA STEVENS Report Released Date/Time: Nov 01, 2022 09:00 PM Reporting Lab: [address] [address] Performing Lab: [address] [address] VITAMIN D (25-[place]) 36 ng/mL 20-50 Apr 26, 2023 11:12 AM [facility] CHOLESTEROL Specimen Type: SERUM No comment entered. Ordering Provider: ALYCIA STEVENS Report Released Date/Time: Nov 01, 2022 09:00 PM Reporting Lab: [facility]ITALRHELEN [facility]LLER HOSPITALTRN [facility]ITAL[facility] [address] [facility] [address] Performing Lab: [facility]ITALRRUSSELLVILLE HOSPITALN [facility]ITALUSEMO[facility] [address] [facility] [address] CHOLESTEROL 131 mg/dL Apr 26, 2023 11:12 AM [facility] HDL CHOLESTEROL Specimen Type: SERUM No comment entered. Ordering Provider: ALYCIA STEVENS Report Released Date/Time: Nov 01, 2022 09:00 PM Reporting Lab: [facility]ITALUSEMO[facility] [address] [facility] [address] Performing Lab: [facility]PITALUSE[address] [address] HDL CHOLESTEROL 49 mg/dL 40-60 Apr 26, 2023 11:12 AM [facility] MICROALBUMIN CREATININE RATIO PANEL Specimen Type: URINE No comment entered. Ordering Provider: ALYCIA STEVENS Report Released Date/Time: Nov 01, 2022 09:00 PM Reporting Lab: [facility]ITALUSETS [facility] [address] [facility] [address] Performing Lab: [facility]PITALUSE[address] [address] MICROALBUMIN/C REATININE RATIO 129.2 mg/g H 0-29.9 MICROALBUMIN,Q UANTITATIVE 12.5 mg/dL RR UNAVAIL CREATININE URINE 96.73 mg/dL Apr 26, 2023 11:12 AM [facility] BASIC METABOLIC PANEL (non-fasting) Specimen Type: SERUM No comment entered. Ordering Provider: ALYCIA STEVENS Report Released Date/Time: Nov 01, 2022 09:00 PM Reporting Lab: [facility]ITALRHELEN KELLER HOSPITALTRN [facility]ITALUSETS [facility] [address] [facility] [address] Performing Lab: [facility]ERN [facility]OSPITALUSETS [address] [address] UREA NITROGEN 23 mg/dL 7-25 GLUCOSE 136 mg/dL H 65-100 SODIUM 140 mmol/L 135-145 POTASSIUM 4.7 mmol/L 3.5-5.0 CHLORIDE 109 mmol/L 100-110 CO2 25 meq/L 20-30 CREATININE, Serum 2.01 mg/dL H 0.50-1.40 eGFR(CKD-EPI 2020) 32 mL/min L >60 Apr 06, 2023 11:39 AM [facility] TSH Specimen Type: SERUM No comment entered. Ordering Provider: SOFI MANCERA Report Released Date/Time: Apr 05, 2023 04:18 PM Reporting Lab: [address] [address] Performing Lab: [address] [address] TSH 1.33 u[IU]/mL 0.35-5.00 Apr 06, 2023 11:39 AM [facility] LIVER FUNCTION Specimen Type: SERUM No comment entered. Ordering Provider: SOFI MANCERA Report Released Date/Time: Apr 05, 2023 04:18 PM Reporting Lab: [address] [address] Performing Lab: [address] [address] PROTEIN,TOTAL 6.3 g/dL 6.0-8.3 ALBUMIN 3.6 g/dL 3.5-5.0 ALKALINE PHOSPHATASE 70 U/L 40-150 AST 14 U/L 5-34 ALT 10 U/L BILIRUBIN, TOTAL 0.5 mg/dL 0.2-1.2 Apr 06, 2023 11:39 AM [facility] LIPID PANEL FASTING Specimen Type: SERUM No comment entered. Ordering Provider: SOFI MANCERA Report Released Date/Time: Apr 05, 2023 04:18 PM Reporting Lab: [address] [address] Performing Lab: [address] [address] CHOLESTEROL 142 mg/dL TRIGLYCERIDE 118 mg/dL 0-150 LDL calculated 65 mg/dL 0-129 CHOL/HDL 2.7 HDL CHOLESTEROL 53 mg/dL 40-60 Apr 06, 2023 11:39 AM [facility] HEMOGLOBIN A1C PANEL Specimen Type: BLOOD [...] Apr 05, 2023 04:18 PM Reporting Lab: [address] [address] Performing Lab: [address] [address] HEMOGLOBIN A1C 6.4 H 4.0-5.6 Apr 06, 2023 11:39 AM [facility] MICROALBUMIN CREATININE RATIO PANEL Specimen Type: URINE No comment entered. Ordering Provider: SOFI MANCERA Report Released Date/Time: Apr 05, 2023 04:18 PM Reporting Lab: [address] [address] Performing Lab: [address] [address] MICROALBUMIN/C REATININE RATIO 130.6 mg/g H 0-29.9 MICROALBUMIN,Q UANTITATIVE 12.8 mg/dL RR UNAVAIL CREATININE URINE 97.99 mg/dL Apr 06, 2023 11:39 AM [facility] URIC ACID Specimen Type: SERUM No comment entered. Ordering Provider: SOFI MANCERA Report Released Date/Time: Apr 05, 2023 04:19 PM Reporting Lab: [address] [address] Performing Lab: [address] [address] URIC ACID 2.9 mg/dL L 3.5-7.2 Apr 06, 2023 11:39 AM [facility] URINALYSIS CLEAN CATCH Specimen Type: URINE Comment: If Glucose = >500 and Ketones are positive, please alert the Physician. Ordering Provider: SOFI MANCERA Report Released Date/Time: Apr 05, 2023 04:18 PM Reporting Lab: [address] [address] Performing Lab: [address] [address] UA COLOR Light-Yellow Yellow UA APPEARANCE Clear Clear UA GLUCOSE NEGATIVE mg/dL Negative UA KETONES NEGATIVE mg/dL Negative UA BLOOD NEGATIVE mg/dL Negative UA PROTEIN 20 mg/dL Negative UA NITRITE NEGATIVE mg/dL Negative UA BILIRUBIN NEGATIVE mg/dL Negative UA SPECIFIC GRAVITY 1.017 1.016-1.02 2 UA pH 6.0 5.0-9.0 UA UROBILINOGEN <2.0 mg/dL <2.0 UA LEUKOCYTE NEGATIVE Negative Apr 06, 2023 11:39 AM [facility] BASIC METABOLIC PANEL (fasting) Specimen Type: SERUM No comment entered. Ordering Provider: SOFI MANCERA Report Released Date/Time: Apr 05, 2023 04:18 PM Reporting Lab: [address] [address] Performing Lab: [address] [address] UREA NITROGEN 23 mg/dL 7-25 GLUCOSE 163 mg/dL H 65-100 SODIUM 140 mmol/L 135-145 POTASSIUM 4.7 mmol/L 3.5-5.0 CHLORIDE 108 mmol/L 100-110 CO2 23 meq/L 20-30 CREATININE, Serum 1.90 mg/dL H 0.50-1.40 eGFR(CKD-EPI 2020) 34 mL/min L >60 Apr 06, 2023 11:39 AM [facility] CBC AND DIFF (AUTO) Specimen Type: BLOOD No comment entered. Ordering Provider: SOFI MANCERA Report Released Date/Time: Apr 05, 2023 04:18 PM Reporting Lab: [address] [address] Performing Lab: [facility] [address] [facility] [address] WBC 7.36 10*3/uL 4.50-11.00 RBC 4.36 10*6/uL 4.23-5.66 HGB 13.0 g/dL 12.8-17 HCT 40.9 39.2-50.4 MCV 93.8 fL 82-99 MCHC 31.8 g/dL 30.8-35.1 PLT 188 10*3/uL 140-360 RDW-CV 13.6 12.0-16.0 [place], Abs 0.63 10*3/uL 0.30-1.10 MCH 29.8 pg 26.2-32.6 Neut % 66.9 43.7-75.8 Lymph % 19.2 14.0-42.3 [place] % 8.6 5.1-13.7 Eos % 4.6 0.4-6.8 Baso % 0.4 0.1-2.0 Neut, Abs 4.93 10*3/uL 2.20-7.60 Lymph, Abs 1.41 10*3/uL 1.00-3.20 Eos, Abs 0.34 10*3/uL 0.03-0.44 Baso, Abs 0.03 10*3/uL 0.01-0.13 Immature Gran % 0.3 0.0-0.7 Immature Gran, Abs 0.02 10*3/uL 0.00-0.06 Mar 23, 2023 02:03 PM [facility] HDL CHOLESTEROL Specimen Type: SERUM No comment entered. Ordering Provider: ALYCIA STEVENS Report Released Date/Time: Mar 14, 2023 10:53 AM Reporting Lab: [facility] [address] [facility] [address] Performing Lab: [facility] [address] [facility] [address] HDL CHOLESTEROL 49 mg/dL 40-60 Mar 23, 2023 02:03 PM [facility] MICROALBUMIN CREATININE RATIO PANEL Specimen Type: URINE No comment entered. Ordering Provider: STEVENS,ALYCIA EY A Report Released Date/Time: Mar 14, 2023 10:53 AM Reporting Lab: [facility] [address] [facility] [address] Performing Lab: [facility] [address] [facility] [address] MICROALBUMIN/C REATININE RATIO 138.3 mg/g H 0-29.9 MICROALBUMIN,Q UANTITATIVE 17.1 mg/dL RR UNAVAIL CREATININE URINE 123.64 mg/dL Mar 23, 2023 02:03 PM [facility] FERRITIN Specimen Type: SERUM No comment entered. Ordering Provider: ALYCIA STEVENS Report Released Date/Time: Mar 14, 2023 10:53 AM Reporting Lab: [facility] [address] [facility] [address] Performing Lab: [address] [address] FERRITIN 34 ng/mL 20-300 Mar 23, 2023 02:03 PM [facility] MAGNESIUM Specimen Type: SERUM No comment entered. Ordering Provider: ALYCIA STEVENS Report Released Date/Time: Mar 14, 2023 10:53 AM Reporting Lab: [facility] [address] [facility] [address] Performing Lab: [address] [address] MAGNESIUM 2.0 mg/dL 1.6-2.6 Mar 23, 2023 02:03 PM [facility] IRON & TIBC PANEL Specimen Type: SERUM No comment entered. Ordering Provider: ALYCIA STEVENS Report Released Date/Time: Mar 14, 2023 10:53 AM Reporting Lab: [facility] [address] [facility] [address] Performing Lab: [address] [address] TIBC 347 ug/dL 204-475 IRON 65 ug/dL 40-160 Transferrin Saturation 18.7 L 20.0-50.0 Mar 23, 2023 02:03 PM [facility] [place] [facility] CALCIUM Specimen Type: SERUM No comment entered. Ordering Provider: ALYCIA STEVENS Report Released Date/Time: Mar 14, 2023 10:53 AM Reporting Lab: [facility] [place] [facility] [address] [facility] [address] Performing Lab: [facility] [place] [facility] [address] [facility] [address] CALCIUM 9.1 mg/dL 8.5-10.2 Mar 23, 2023 02:03 PM [facility] [place] [facility] VITAMIN D (25-[place]) Specimen Type: SERUM No comment entered. Ordering Provider: ALYCIA STEVENS Report Released Date/Time: Mar 14, 2023 10:53 AM Reporting Lab: [facility] [place] [facility] [address] [facility] [address] Performing Lab: [facility] [place] [address] [address] VITAMIN D (25-OH) 33 ng/mL 20-50 Mar 23, 2023 02:03 PM [facility] CHOLESTEROL Specimen Type: SERUM No comment entered. Ordering Provider: ALYCIA STEVENS Report Released Date/Time: Mar 14, 2023 10:53 AM Reporting Lab: [facility] [place] [place] [facility] [address] [facility] [address] Performing Lab: [facility] [place] [place] [address] [address] CHOLESTEROL 138 mg/dL Mar 23, 2023 02:03 PM [facility] PO4 Specimen Type: SERUM No comment entered. Ordering Provider: ALYCIA STEVENS Report Released Date/Time: Mar 14, 2023 10:53 AM Reporting Lab: [facility] [place] [place] [facility] [address] [facility] [address] Performing Lab: [facility] [place] [address] [address] PO4 2.2 mg/dL L 2.5-5.0 Mar 23, 2023 02:03 PM [facility] [place] [facility] URIC ACID Specimen Type: SERUM No comment entered. Ordering Provider: ALYCIA STEVENS Report Released Date/Time: Mar 14, 2023 10:53 AM Reporting Lab: [facility]ITAL[facility] [address] [facility] [address] Performing Lab: [facility]ITALRRUSSELLVILLE HOSPITALN [facility]ITALUSETS [address] [address] URIC ACID 3.0 mg/dL L 3.5-7.2 Mar 23, 2023 02:03 PM [facility] PTH INTACT Specimen Type: SERUM No comment entered. Ordering Provider: ALYCIA STEVENS Report Released Date/Time: Mar 14, 2023 10:53 AM Reporting Lab: [facility]ITALRRUSSELLVILLE HOSPITALN [facility]ITALUSETS [address] [address] Performing Lab: [facility] [address] [address] PTH INTACT 116.9 pg/mL H -Mar 23, 2023 02:03 PM [facility] ALKALINE PHOSPHATASE Specimen Type: SERUM No comment entered. Ordering Provider: ALYCIA STEVENS Report Released Date/Time: Mar 14, 2023 10:53 AM Reporting Lab: [facility]ITALRRUSSELLVILLE HOSPITALN [facility]ITALUSETS [address] [address] Performing Lab: [facility]ITALRRUSSELLVILLE HOSPITALN [address] [address] ALKALINE PHOSPHATASE 74 U/L 40-150 Mar 23, 2023 02:03 PM [facility] CBC Specimen Type: BLOOD No comment entered. Ordering Provider: ALYCIA STEVENS Report Released Date/Time: Mar 14, 2023 10:53 AM Reporting Lab: [facility]ITALRRUSSELLVILLE HOSPITALN [facility]ITALUSETS [address] [address] Performing Lab: [facility]ITALRRUSSELLVILLE [facility]OSPITALN [facility]USETS [address] [address] WBC 6.76 10*3/uL 4.50-11.00 RBC 4.44 10*6/uL 4.23-5.66 HGB 13.6 g/dL 12.8-17 HCT 41.6 39.2-50.4 MCV 93.7 fL 82-99 MCHC 32.7 g/dL 30.8-35.1 PLT 188 10*3/uL 140-360 RDW-CV 13.6 12.0-16.0 MCH 30.6 pg 26.2-32.6 Mar 23, 2023 02:03 PM [facility] BASIC METABOLIC PANEL (non-fasting) Specimen Type: SERUM No comment entered. Ordering Provider: ALYCIA STEVENS Report Released Date/Time: Mar 14, 2023 10:53 AM Reporting Lab: [facility] [address] [facility] [address] Performing Lab: [address] [address] UREA NITROGEN 20 mg/dL 7-25 GLUCOSE 173 [...] 30, 2022 11:00 AM [place] FORMER USER [facility] Tobacco Use History This section includes a history of the smoking, or tobacco-related health factors, that were collected on or before the date of the Encounter. The data comes from the [place] facility where the Encounter took place. Date/Time Smoking Status/Tobacco Use Comment Gamaliel landin Mar 30, 2022 11:00 AM [place] QU[place] 15 YRS OR MORE [facility] Mar 17, 2021 01:30 PM [place] FORMER USER [facility] Mar 17, 2021 01:30 PM [place]-TOBACCO NEVER USED [facility] [place] [facility] Mar 17, 2021 01:30 PM [place]-TOBACCO QUIT 15 YRS OR MORE [facility] [place] [facility] Mar 31, 2020 10:30 AM [place]-TOBACCO FORMER USER [facility] [place] [facility] Mar 31, 2020 10:30 AM VA-TOBACCO QUIT 15 YRS OR MORE [facility] [place] [facility] Nov 23, 2018 12:07 PM VA-TOBACCO FORMER USER [facility] [place] [facility] Nov 23, 2018 12:07 PM VA-TOBACCO QUIT 15 YRS OR MORE [facility] [place] [facility] Nov 22, 2017 10:02 AM VA-TOBACCO NEVER USED [place] [facility] [place] [facility] Mar 14, 2017 09:31 AM LIFETIME NON-TOBACCO USER [facility] [place] [facility] Mar 01, 2016 02:51 PM LIFETIME NON-TOBACCO USER [facility] [place] [facility] Feb 10, 2015 09:31 AM QUIT TOBACCO USE > 7 YEARS AGO quit in 1964 [place] [facility] [place] [facility] Encounter Notes: All associated encounter notes This section contains the clinical notes associated to the Encounter. Date/Time Encounter Note(s) Provider Source Apr 18, 2023 10:09 AM ADMINISTRATIVE NOTE: LOCAL TITLE: ADMINISTRATIVE NOTE STANDARD TITLE: ADMINISTRATIVE NOTE DATE OF NOTE: APR 18, 2023@10:09 ENTRY DATE: APR 18, 2023@10:09:38 AUTHOR: RENEE MORRIS EXP COSIGNER: URGENCY: STATUS: COMPLETED Reminder call for your upcoming Primary Care Appointment and the need for preparations prior to your upcoming appt. [ ] Location in [address] [facility] [place] [X] Fasting labs - LABS ARE COMPLETED PER [ ] Lab work within 30 days [ ] Urine [ ] No Preparation Action taken: [ ] Called , left voice message [ ] Called , unable to leave voice mail [X] Spoke to /respiratory care practitioner to remind them of upcoming appt/preparations Upcoming Appointments: 04/24/2023 11:30 NHM/OPTOMETRY/[place] 04/26/2023 10:00 CWM/NO/PACT 2 05/09/2023 14:00 CWM/NO/NEPHROLOGY/PROV 05/29/2023 11:00 CWM/NO/ACUPUNCTURE R2 07/05/2023 15:00 CWM/NO/PODIATRY/NAIL 07/06/2023 10:30 CWM/NO/ACUPUNCTURE R1 /es/ RENEE MORRIS AMSA Signed: 04/18/2023 10:09 RENEE MORRIS [facility] [place] [facility]
--- OUTSIDE RECORDS SUMMARY | 2024-03-20 13:57 | XMS_ITS ---
Author Name [facility] [place] [facility] [place] Address [address] [place] [address] Care Team Providers Care Product Strategy Director Name Role Phone SOFI MANCERA Primary Care [...] [facility] MED[facility] CHARAN E Mar 13, 2015 [id number] VERONICA BROWN RT PATIENT MEDICARE (WNR) MEDICARE (M) PART B Aug 12, 2007 PART B [id number] VERONICA BROWN RT PATIENT MEDICARE (WNR) MEDICARE (M) PART A Jan 12, 2004 PART A [id number] VERONICA BROWN RT PATIENT Selected Encounter This section includes the information on record at [place] for the Encounter. Date/Time Encounter Type Encounter Description Reason Provider Source Apr 24, 2023 12:30 PM ACUPUNCT W/O STIMUL 15 MIN CIH TREATMENT ICD-10-CM M54.9 Dorsalgia, unspecified GAUNYA,BRICE PHER M IHE Encounter Template Text not used by [place] Assessments - Encounter Diagnoses This section includes the primary and secondary diagnoses documented for the Encounter. Date/Time Primary/Secondary Diagnosis Diagnosis Name Provider Source May 06, 2023 08:40 AM PRIMARY Dorsalgia, unspecified BRICE MENDOZA [facility] Plan of Treatment: Future Appointments (+ 6 months) and Future Tests (+/- 45 days) The Plan of Treatment section includes future care activities for the patient from all [place] treatmentfacilities. This section includes future appointments and [...] - MEDICINE [facility] Apr 26, 2023 11:00 AM AMBULATORY - MEDICINE [facility] May 09, 2023 11:00 AM AMBULATORY - MEDICINE [facility] May 12, 2023 10:00 AM AMBULATORY - MEDICINE [facility] May 15, 2023 11:20 AM AMBULATORY - MEDICINE [facility] May 29, 2023 11:00 AM AMBULATORY - MEDICINE [facility] Jul 05, 2023 03:00 PM AMBULATORY - MEDICINE [facility] Jul 06, 2023 10:30 AM AMBULATORY - MEDICINE [facility] August 02, 2023 02:30 PM AMBULATORY - MEDICINE [facility] August 08, 2023 02:00 PM AMBULATORY - MEDICINE [facility] Aug 23, 2023 10:30 AM AMBULATORY - REHAB MEDICIN E [facility] Sep 01, 2023 11:30 AM AMBULATORY - MEDICINE [facility] Sep 11, 2023 02:30 PM AMBULATORY - MEDICINE [facility] Sep 15, 2023 10:30 AM [facility] Oct 02, 2023 09:30 AM AM[facility]UL[facility]INE [facility] Oct 04, 2023 10:00 AM AMBULATORY - [facility]ICINE [facility] Oct 11, 2023 09:00 AM AMBULATORY - [facility]ICINE [facility] Oct 18, 2023 10:00 AM AMBULATORY - MEDICINE [facility] Lab Results: +/- 30 days [...] Range Comment Apr 26, 2023 11:12 AM [facility] PO4 Specimen Type: SERUM No comment entered. Ordering Provider: ALYCIA STEVENS Report Released Date/Time: Nov 01, 2022 09:00 PM Reporting Lab: [facility] [address] [address] Performing Lab: [facility] [address] [address] PO4 2.5 mg/dL 2.5-5.0 Apr 26, 2023 11:12 AM [facility] PTH INTACT Specimen Type: SERUM No comment entered. Ordering Provider: ALYCIA STEVENS Report Released Date/Time: Nov 01, 2022 09:00 PM Reporting Lab: [facility] [address] [address] Performing Lab: [facility] [address] [address] PTH INTACT 118.5 pg/mL H 10-65 Apr 26, 2023 11:12 AM [facility] URIC ACID Specimen Type: SERUM No comment entered. Ordering Provider: ALYCIA STEVENS Report Released Date/Time: Nov 01, 2022 09:00 PM Reporting Lab: [facility] [address] [address] Performing Lab: [facility] [address] [address] URIC ACID 3.1 mg/dL L 3.5-7.2 Apr 26, 2023 11:12 AM [facility] FERRITIN Specimen Type: SERUM No comment entered. Ordering Provider: ALYCIA STEVENS Report Released Date/Time: Nov 01, 2022 09:00 PM Reporting Lab: [facility] [address] [address] Performing Lab: [place] [facility] [place] [address] [address] FERRITIN 40 ng/mL 20-300 Apr 26, 2023 11:12 AM [facility] ALKALINE PHOSPHATASE Specimen Type: SERUM No comment entered. Ordering Provider: ALYCIA STEVENS Report Released Date/Time: Nov 01, 2022 09:00 PM Reporting Lab: [facility] [address] [address] Performing Lab: [place] [facility] [place] [address] [address] ALKALINE PHOSPHATASE 78 U/L 40-150 Apr 26, 2023 11:12 AM [facility] MAGNESIUM Specimen Type: SERUM No comment entered. Ordering Provider: ALYCIA STEVENS Report Released Date/Time: Nov 01, 2022 09:00 PM Reporting Lab: [facility] [address] [address] Performing Lab: [place] [facility] [place] [address] [address] MAGNESIUM 2.0 mg/dL 1.6-2.6 Apr 26, 2023 11:12 AM [facility] CBC Specimen Type: BLOOD No comment entered. Ordering Provider: ALYCIA STEVENS Report Released Date/Time: Nov 01, 2022 09:00 PM Reporting Lab: [facility] [address] [address] Performing Lab: [facility] [address] [address] WBC 8.31 10*3/uL 4.50-11.00 RBC 4.42 10*6/uL 4.23-5.66 HGB 13.2 g/dL 12.8-17 HCT 41.3 39.2-50.4 MCV 93.4 fL 82-99 MCHC 32.0 g/dL 30.8-35.1 PLT 196 10*3/uL 140-360 RDW-CV 14.3 12.0-16.0 MCH 29.9 pg 26.2-32.6 Apr 26, 2023 11:12 AM [facility] IRON & TIBC PANEL Specimen Type: SERUM No comment entered. Ordering Provider: ALYCIA STEVENS Report Released Date/Time: Nov 01, 2022 09:00 PM Reporting Lab: [facility] [address] [address] Performing Lab: [facility] [address] [address] TIBC 341 ug/dL 204-475 IRON 69 ug/dL 40-160 Transferrin Saturation 20.3 20.0-50.0 Apr 26, 2023 11:12 AM [facility] VITAMIN D (25-[place]) Specimen Type: SERUM No comment entered. Ordering Provider: ALYCIA STEVENS Report Released Date/Time: Nov 01, 2022 09:00 PM Reporting Lab: [facility] [address] [address] Performing Lab: [facility] [address] [address] VITAMIN D (25-OH) 36 ng/mL 20-50 Apr 26, 2023 11:12 AM [facility] CALCIUM Specimen Type: SERUM No comment entered. Ordering Provider: ALYCIA STEVENS Report Released Date/Time: Nov 01, 2022 09:00 PM Reporting Lab: [facility] [address] [facility] [address] Performing Lab: [facility] [address] [address] CALCIUM 9.4 mg/dL 8.5-10.2 Apr 26, 2023 11:12 AM [facility] CHOLESTEROL Specimen Type: SERUM No comment entered. Ordering Provider: ALYCIA STEVENS A Report Released Date/Time: Nov 01, 2022 09:00 PM Reporting Lab: [facility] [address] [facility] [address] Performing Lab: [facility] [address] [address] CHOLESTEROL 131 mg/dL Apr 26, 2023 11:12 AM [facility] HDL CHOLESTEROL Specimen Type: SERUM No comment entered. Ordering Provider: ALYCIA STEVENS Report Released Date/Time: Nov 01, 2022 09:00 PM Reporting Lab: [facility] [address] [facility] [address] Performing Lab: [facility] [address] [facility] [address] HDL CHOLESTEROL 49 mg/dL 40-60 Apr 26, 2023 11:12 AM [facility] MICROALBUMIN CREATININE RATIO PANEL Specimen Type: URINE No comment entered. Ordering Provider: ALYCIA STEVENS Report Released Date/Time: Nov 01, 2022 09:00 PM Reporting Lab: [facility] [address] [facility] [address] Performing Lab: [facility] [address] [address] MICROALBUMIN/C REATININE RATIO 129.2 mg/g H 0-29.9 MICROALBUMIN,Q UANTITATIVE 12.5 mg/dL RR UNAVAIL CREATININE URINE 96.73 mg/dL Apr 26, 2023 11:12 AM [facility] BASIC METABOLIC PANEL (non-fasting) Specimen Type: SERUM No comment entered. Ordering Provider: ALYCIA STEVENS A Report Released Date/Time: Nov 01, 2022 09:00 PM Reporting Lab: [facility] [address] [facility] [facility] [address] Performing Lab: [facility] [address] [facility] [address] UREA NITROGEN 23 mg/dL 7-25 GLUCOSE 136 mg/dL H 65-100 SODIUM 140 mmol/L 135-145 POTASSIUM 4.7 mmol/L 3.5-5.0 CHLORIDE 109 mmol/L 100-110 CO2 25 meq/L 20-30 CREATININE, Serum 2.01 mg/dL H 0.50-1.40 eGFR(CKD-EPI 2020) 32 mL/min L >60 Apr 06, 2023 11:39 AM [facility] LIPID PANEL FASTING Specimen Type: SERUM No comment entered. Ordering Provider: SOFI MANCERA Report Released Date/Time: Apr 05, 2023 04:18 PM Reporting Lab: [facility] [address] [facility] [address] Performing Lab: [facility] [address] CHOLESTEROL 142 mg/dL TRIGLYCERIDE 118 mg/dL 0-150 LDL calculated 65 mg/dL 0-129 CHOL/HDL 2.7 HDL CHOLESTEROL 53 mg/dL 40-60 Apr 06, 2023 11:39 AM [facility] TSH Specimen Type: SERUM No comment entered. Ordering Provider: SOFI MANCERA Report Released Date/Time: Apr 05, 2023 04:18 PM Reporting Lab: [facility] [address] [facility] [address] Performing Lab: [facility] [address] TSH 1.33 u[IU]/mL 0.35-5.00 Apr 06, 2023 11:39 AM [facility] LIVER FUNCTION Specimen Type: SERUM No comment entered. Ordering Provider: SOFI MANCERA Report Released Date/Time: Apr 05, 2023 04:18 PM Reporting Lab: [facility] [address] [facility] [address] Performing Lab: [facility] [address] [facility] [address] PROTEIN,TOTAL 6.3 g/dL 6.0-8.3 ALBUMIN 3.6 g/dL 3.5-5.0 ALKALINE PHOSPHATASE 70 U/L 40-150 AST 14 U/L 5-34 ALT 10 U/L BILIRUBIN, TOTAL 0.5 mg/dL 0.2-1.2 Apr 06, 2023 11:39 AM [facility] HEMOGLOBIN A1C PANEL Specimen Type: [...] Apr 05, 2023 04:18 PM Reporting Lab: [address] [address] Performing Lab: [address] [address] HEMOGLOBIN A1C 6.4 H 4.0-5.6 Apr 06, 2023 11:39 AM [facility] MICROALBUMIN CREATININE RATIO PANEL Specimen Type: URINE No comment entered. Ordering Provider: SOFI MANCERA Report Released Date/Time: Apr 05, 2023 04:18 PM Reporting Lab: [address] [address] Performing Lab: [address] [address] MICROALBUMIN/C REATININE RATIO 130.6 mg/g H 0-29.9 MICROALBUMIN,Q UANTITATIVE 12.8 mg/dL RR UNAVAIL CREATININE URINE 97.99 mg/dL Apr 06, 2023 11:39 AM [facility] URIC ACID Specimen Type: SERUM No comment entered. Ordering Provider: SOFI MANCERA Report Released Date/Time: Apr 05, 2023 04:19 PM Reporting Lab: [address] [address] Performing Lab: [address] [address] URIC ACID 2.9 mg/dL L 3.5-7.2 Apr 06, 2023 11:39 AM [facility] URINALYSIS CLEAN CATCH Specimen Type: URINE Comment: If Glucose = >500 and Ketones are positive, please alert the Physician. Ordering Provider: SOFI MANCERA Report Released Date/Time: Apr 05, 2023 04:18 PM Reporting Lab: [address] [address] Performing Lab: [address] [address] UA COLOR Light-Yellow Yellow UA APPEARANCE Clear Clear UA GLUCOSE NEGATIVE mg/dL Negative UA KETONES NEGATIVE mg/dL Negative UA BLOOD NEGATIVE mg/dL Negative UA PROTEIN 20 mg/dL Negative UA NITRITE NEGATIVE mg/dL Negative UA BILIRUBIN NEGATIVE mg/dL Negative UA SPECIFIC GRAVITY 1.017 1.016-1.02 2 UA pH 6.0 5.0-9.0 UA UROBILINOGEN <2.0 mg/dL <2.0 UA LEUKOCYTE NEGATIVE Negative Apr 06, 2023 11:39 AM [facility] BASIC METABOLIC PANEL (fasting) Specimen Type: SERUM No comment entered. Ordering Provider: SOFI MANCERA Report Released Date/Time: Apr 05, 2023 04:18 PM Reporting Lab: [address] [address] Performing Lab: [address] [address] UREA NITROGEN 23 mg/dL 7-25 GLUCOSE 163 mg/dL H 65-100 SODIUM 140 mmol/L 135-145 POTASSIUM 4.7 mmol/L 3.5-5.0 CHLORIDE 108 mmol/L 100-110 CO2 23 meq/L 20-30 CREATININE, Serum 1.90 mg/dL H 0.50-1.40 eGFR(CKD-EPI 2020) 34 mL/min L >60 Apr 06, 2023 11:39 AM [facility] CBC AND DIFF (AUTO) Specimen Type: BLOOD No comment entered. Ordering Provider: SOFI MANCERA Report Released Date/Time: Apr 05, 2023 04:18 PM Reporting Lab: [facility] [address] [facility] [address] Performing Lab: [facility] [address] [facility] [address] WBC 7.36 10*3/uL 4.50-11.00 RBC 4.36 10*6/uL 4.23-5.66 HGB 13.0 g/dL 12.8-17 HCT 40.9 39.2-50.4 MCV 93.8 fL 82-99 MCHC 31.8 g/dL 30.8-35.1 PLT 188 10*3/uL 140-360 RDW-CV 13.6 12.0-16.0 Burt, Abs 0.63 10*3/uL 0.30-1.10 MCH 29.8 pg 26.2-32.6 Neut % 66.9 43.7-75.8 Lymph % 19.2 14.0-42.3 Burt % 8.6 5.1-13.7 Eos % 4.6 0.4-6.8 [...] VA-TOBACCO FORMER USER [facility] Tobacco Use History This section includes a history of the smoking, or tobacco-related health factors, that were collected on or before the date of the Encounter. The data comes from the [place] facility where the Encounter took place. Date/Time Smoking Status/Tobacco Use Comment F acility Mar 30, 2022 11:00 AM VA-TOBACCO QUIT 15 YRS OR MORE [facility] Mar 17, 2021 01:30 PM VA-TOBACCO FORMER USER [facility] Mar 17, 2021 01:30 PM VA-TOBACCO NEVER USED [facility] Mar 17, 2021 01:30 PM VA-TOBACCO QUIT 15 YRS OR MORE [facility] Mar 31, 2020 10:30 AM VA-TOBACCO FORMER USER [facility] Mar 31, 2020 10:30 AM VA-TOBACCO QUIT 15 YRS OR MORE [facility] Nov 23, 2018 12:07 PM VA-TOBACCO FORMER USER [facility] Nov 23, 2018 12:07 PM VA-TOBACCO QUIT 15 YRS OR MORE [facility] Nov 22, 2017 10:02 AM VA-TOBACCO NEVER USED [facility] Mar 14, 2017 09:31 AM LIFETIME NON-TOBACCO USER [facility] Mar 01, 2016 02:51 PM LIFETIME NON-TOBACCO USER [facility] Feb 10, 2015 09:31 AM QUIT TOBACCO USE > 7 YEARS AGO quit in 1964 [facility] Encounter Notes: All associated encounter notes This section contains the clinical notes associated to the Encounter. Date/Time Encounter Note(s) Provider Source Apr 24, 2023 12:30 PM PRIMARY CARE NOTE: [facility] ACUPUNCT[facility] NOTE STANDARD TITLE: PRIMARY CARE NOTE DATE OF NOTE: APR 24, 2023@12:30 ENTRY DATE: APR 24, 2023@12:30:12 AUTHOR: DAE MENDOZA EXP COSIGNER: URGENCY: STATUS: COMPLETED Follow up visit [place] Acupuncture/[place] Acupressure was the only treatment given. Patient was evaluated and agreed to receive [place] Acupuncture (BFA). Patient was evaluated and agreed to receive [place] Acupuncture Protocol (BFA)/[place] Acupressure (BAA) for the following pain condition(s): Comment: Low back pain Pre BFA/BAA Numeric Pain Rating Scale of site with highest pain: number from 0-10: 10 The patient was asked the following questions: During the past 24 hours, how much has your pain interfered with your usual activity? number from 0-10: 10 During the past 24 hours, how much has your pain interfered with your usual sleep? number from 0-10: 8 During the past 24 hours, how much has the pain affected your usual mood? number from 0-10: 9 During the past 24 hours, how much has pain contributed to your stress? number from 0-10: 9 Oral Informed Consent obtained for BFA/BAA Procedure: Ear was prepped with alcohol Needle type: Semi-permanent ASP needles The following points were placed: All 10 points in both ears Complications: Patient tolerated well, without any complications. Post treatment Numeric Pain Rating Scale: number from 0-10: 6 Standard [id number] time for application of BFA/BAA protocol is 15 minutes. No electrical stimulation was used. 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
--- OUTSIDE RECORDS SUMMARY | 2024-03-20 13:57 | XMS_ITS ---
Author Name [facility] [place] Address [address] [place] [address] Care Team Providers Care Researcher Name Role Phone SOFI MANCERA Primary Care [...] Relationship to Policy [place] MED[place] SUPPLEMEN CARY MEDEX CHARAN Fountain Mar 13, 2015 [id number] VERONICA BROWN RT PATIENT MEDICARE (WNR) MEDICARE (M) PART B Aug 12, 2007 PART B [id number] VERONICA BROWN RT PATIENT MEDICARE (WNR) MEDICARE (M) PART A Jan 12, 2004 PART A [id number] VERONICA BROWN RT PATIENT Selected Encounter This section includes the information on record at [place] for the Encounter. Date/Time Encounter Type Encounter Description Reason Provider Source Apr 26, 2023 11:00 AM FIT SPECTACLES BIFOCAL OPTOMETRY ICD-10-CM Z46.0 Encounter for fit/adjst of spectacles and contact lenses NANCY MCFARLAND [facility] Encounter Template Text not used by [place] Assessments - Encounter Diagnoses This section includes the primary and secondary diagnoses documented for the Encounter. Date/Time Primary/Secondary Diagnosis Diagnosis Name Provider Source Apr 26, 2023 11:06 AM PRIMARY Encounter for fit/adjst of spectacles and contact lenses DONNA MCFARLAND [place] [facility] [facility] Plan of Treatment: Future Appointments (+ 6 months) and Future Tests (+/- 45 days) The Plan of Treatment section includes future care activities for the patient [facility] [place] [facility] This section includes future appointments [...] 09, 2023 11:00 AM AM[place]UL[place] [facility] May 12, 2023 10:00 AM [place] [facility] May 15, 2023 11:20 AM [place] [facility] May 29, 2023 11:00 AM [place] [facility] Jul 05, 2023 03:00 PM AM[place]UL[place]ORY [place]ICINE [place] [facility] [facility] Jul 06, 2023 10:30 AM [place] [facility] August 02, 2023 02:30 PM [place] [facility] August 08, 2023 02:00 PM AM[place]ULATORY [place]ICINE [place] [facility] [place] [facility] Aug 23, 2023 10:30 AM AMBULATORY - REHAB MEDICIN [place] [facility] [place] [facility] Sep 01, 2023 11:30 AM [place] [facility] [place] [facility] Sep 11, 2023 02:30 PM AM[place]ORY [place]ICINE [place] [facility] Sep 15, 2023 10:30 AM [place] [facility] Oct 02, 2023 09:30 AM [place] [facility] [place] [facility] Oct 04, 2023 10:00 AM [place] [facility] [place] [facility] Oct 11, 2023 09:00 AM [place] [facility] [place] [facility] Oct 18, 2023 10:00 AM AM[place] - [place]ICINE [place] [...] PM Reporting Lab: [place] [facility] [facility] [address] [address] Performing Lab: [place] [facility] [place] [facility] [address] [address] PO4 2.5 mg/dL 2.5-5.0 Apr 26, 2023 11:12 AM [place] [facility] [place] [facility] PTH INTACT Specimen Type: SERUM No comment entered. Ordering Provider: ALYCIA STEVENS Report Released Date/Time: Nov 01, 2022 09:00 PM Reporting Lab: [place] [facility] [place] [facility] [address] [address] Performing Lab: [place] [facility] [place] [facility] [address] [address] PTH INTACT 118.5 pg/mL H 10-65 Apr 26, 2023 11:12 AM [place] [facility] [place] [facility] URIC ACID Specimen Type: SERUM No comment entered. Ordering Provider: ALYCIA STEVENS Report Released Date/Time: Nov 01, 2022 09:00 PM Reporting Lab: [place] [facility] [facility] [address] [address] Performing Lab: [place] [facility] [place] [facility] [address] [address] URIC ACID 3.1 mg/dL L 3.5-7.2 Apr 26, 2023 11:12 AM [facility] ALKALINE PHOSPHATASE Specimen Type: SERUM No comment entered. Ordering Provider: ALYCIA STEVENS Report Released Date/Time: Nov 01, 2022 09:00 PM Reporting Lab: [facility] [place] [facility] [address] [address] Performing Lab: [facility] [place] [place] [address] [address] ALKALINE PHOSPHATASE 78 U/L 40-150 Apr 26, 2023 11:12 AM [facility] FERRITIN Specimen Type: SERUM No comment entered. Ordering Provider: ALYCIA STEVENS Report Released Date/Time: Nov 01, 2022 09:00 PM Reporting Lab: [facility] [place] [place] [address] [address] Performing Lab: [facility] [address] [address] FERRITIN 40 ng/mL 20-300 Apr 26, 2023 11:[address] [facility]USE[facility] MAGNESIUM Specimen Type: SERUM No comment entered. Ordering Provider: ALYCIA STEVENS Report Released Date/Time: Nov 01, 2022 09:00 PM Reporting Lab: [facility]TR[facility] [place] [address] [address] Performing Lab: [facility] [place] [place] [address] [address] MAGNESIUM 2.0 mg/dL 1.6-2.6 Apr 26, 2023 11:12 AM [facility] IRON & TIBC PANEL Specimen Type: SERUM No comment entered. Ordering Provider: ALYCIA STEVENS Report Released Date/Time: Nov 01, 2022 09:00 PM Reporting Lab: [facility]DE[facility]AL[facility]ENTERTR[facility] [place] [address] [address] Performing Lab: [facility] [place] [place] [address] TIBC 341 ug/dL 204-475 IRON 69 ug/dL 40-160 Transferrin Saturation 20.3 20.0-50.0 Apr 26, 2023 11:12 AM [facility] CALCIUM Specimen Type: SERUM No comment entered. Ordering Provider: ALYCIA STEVENS A Report Released Date/Time: Nov 01, 2022 09:00 PM Reporting Lab: [facility] [address] Performing Lab: [facility] [address] CALCIUM 9.4 mg/dL 8.5-10.2 Apr 26, 2023 11:12 AM [facility] CBC Specimen Type: BLOOD No comment entered. Ordering Provider: ALYCIA STEVENS A Report Released Date/Time: Nov 01, 2022 09:00 PM Reporting Lab: [facility] [address] Performing Lab: [facility] [address] WBC 8.31 10*3/uL 4.50-11.00 RBC 4.42 10*6/uL 4.23-5.66 HGB 13.2 g/dL 12.8-17 HCT 41.3 39.2-50.4 MCV 93.4 fL 82-99 MCHC 32.0 g/dL 30.8-35.1 PLT 196 10*3/uL 140-360 RDW-CV 14.3 12.0-16.0 MCH 29.9 pg 26.2-32.6 Apr 26, 2023 11:12 AM [facility] VITAMIN D (25-[place]) Specimen Type: SERUM No comment entered. Ordering Provider: ALYCIA STEVENS Report Released Date/Time: Nov 01, 2022 09:00 PM Reporting Lab: [address] [address] Performing Lab: [facility] [address] VITAMIN D (25-[place]) 36 ng/mL 20-50 Apr 26, 2023 11:[address] [facility]N [facility]ITAL[facility] CHOLESTEROL Specimen Type: SERUM No comment entered. Ordering Provider: ALYCIA STEVENS Report Released Date/Time: Nov 01, 2022 09:00 PM Reporting Lab: [facility]ITALUSETS [address] [address] Performing Lab: [facility]SONVILLEN [facility]ITALUSETS [address] [address] CHOLESTEROL 131 mg/dL Apr 26, 2023 11:[address] [facility] HDL CHOLESTEROL Specimen Type: SERUM No comment entered. Ordering Provider: ALYCIA STEVENS Report Released Date/Time: Nov 01, 2022 09:00 PM Reporting Lab: [facility] [address] Performing Lab: [facility]ITALUSETS [address] [address] HDL CHOLESTEROL 49 mg/dL 40-60 Apr 26, 2023 11:[address] [facility]N [facility]ITALUSEMETROPOLIT[facility] MICROALBUMIN CREATININE RATIO PANEL Specimen Type: URINE No comment entered. Ordering Provider: ALYCIA STEVENS Report Released Date/Time: Nov 01, 2022 09:00 PM Reporting Lab: [facility] [address] Performing Lab: [facility]ITALUSETS [address] [address] MICROALBUMIN/C REATININE RATIO 129.2 mg/g H 0-29.9 MICROALBUMIN,Q UANTITATIVE 12.5 mg/dL RR UNAVAIL CREATININE URINE 96.73 mg/dL Apr 26, 2023 11:[address] [facility]N [facility]ITALUSEMETROPOLITAN [facility]OS[facility] BASIC METABOLIC PANEL (non-fasting) Specimen Type: SERUM No comment entered. Ordering Provider: ALYCIA STEVENS Report Released Date/Time: Nov 01, 2022 09:00 PM Reporting Lab: [facility]ANRREG[facility] J[facility]SONVILLEN [facility]ITALUSETS [address] [address] Performing Lab: [facility] [address] [address] UREA NITROGEN 23 mg/dL 7-25 GLUCOSE 136 mg/dL H 65-100 SODIUM 140 mmol/L 135-145 POTASSIUM 4.7 mmol/L 3.5-5.0 CHLORIDE 109 mmol/L 100-110 CO2 25 meq/L 20-30 CREATININE, Serum 2.01 mg/dL H 0.50-1.40 eGFR(CKD-EPI 2020) 32 mL/min L >60 Apr 06, 2023 11:39 AM [facility] TSH Specimen Type: SERUM No comment entered. Ordering Provider: SOFI MANCERA Report Released Date/Time: Apr 05, 2023 04:18 PM Reporting Lab: [facility] [address] [address] Performing Lab: [address] [address] TSH 1.33 u[IU]/mL 0.35-5.00 Apr 06, 2023 11:39 AM [facility] LIPID PANEL FASTING Specimen Type: SERUM No comment entered. Ordering Provider: SOFI MANCERA Report Released Date/Time: Apr 05, 2023 04:18 PM Reporting Lab: [facility] [address] [address] Performing Lab: [address] [address] CHOLESTEROL 142 mg/dL TRIGLYCERIDE 118 mg/dL 0-150 LDL calculated 65 mg/dL 0-129 CHOL/HDL 2.7 HDL CHOLESTEROL 53 mg/dL 40-60 Apr 06, 2023 11:39 AM [facility] HEMOGLOBIN A1C PANEL Specimen Type: BLOOD [...] Apr 05, 2023 04:18 PM Reporting Lab: [facility] [place] [place] [facility] [address] [address] Performing Lab: [place] [facility]ITAL[facility] [address] [address] HEMOGLOBIN A1C 6.4 H 4.0-5.6 Apr 06, 2023 11:39 AM [facility]RL [facility]ITAL[facility] LIVER FUNCTION Specimen Type: SERUM No comment entered. Ordering Provider: SOFI MANCERA Report Released Date/Time: Apr 05, 2023 04:18 PM Reporting Lab: [facility]RL [facility]N [facility]ITAL[facility] [address] [address] Performing Lab: [facility]ITALUSETS [address] [address] PROTEIN,TOTAL 6.3 g/dL 6.0-8.3 ALBUMIN 3.6 g/dL 3.5-5.0 ALKALINE PHOSPHATASE 70 U/L 40-150 AST 14 U/L 5-34 ALT 10 U/L BILIRUBIN, TOTAL 0.5 mg/dL 0.2-1.2 Apr 06, 2023 11:[address] [facility]N [facility]ITAL[facility] MICROALBUMIN CREATININE RATIO PANEL Specimen Type: URINE No comment entered. Ordering Provider: SOFI MANCERA Report Released Date/Time: Apr 05, 2023 04:18 PM Reporting Lab: [facility]RL [facility]N [facility]ITAL[facility] [address] [address] Performing Lab: [facility]RL TRN [facility]ITALUSETS [address] [address] MICROALBUMIN/C REATININE RATIO 130.6 mg/g H 0-29.9 MICROALBUMIN,Q UANTITATIVE 12.8 mg/dL RR UNAVAIL CREATININE URINE 97.99 mg/dL Apr 06, 2023 11:39 AM [facility]ITAL[facility] URIC ACID Specimen Type: SERUM No comment entered. Ordering Provider: SOFI MANCERA Report Released Date/Time: Apr 05, 2023 04:19 PM Reporting Lab: [facility]ANRDEKALB [facility] CENTERTRN [facility]ITALUSETS [address] [address] Performing Lab: [facility] M[facility]ANRL [address] [address] URIC ACID 2.9 mg/dL L 3.5-7.2 Apr 06, 2023 11:39 AM [facility] URINALYSIS CLEAN CATCH Specimen Type: URINE Comment: If Glucose = >500 and Ketones are positive, please alert the Physician. Ordering Provider: SOFI MANCERA Report Released Date/Time: Apr 05, 2023 04:18 PM Reporting Lab: [address] [address] Performing Lab: [address] [address] UA COLOR Light-Yellow Yellow UA APPEARANCE Clear Clear UA GLUCOSE NEGATIVE mg/dL Negative UA KETONES NEGATIVE mg/dL Negative UA BLOOD NEGATIVE mg/dL Negative UA PROTEIN 20 mg/dL Negative UA NITRITE NEGATIVE mg/dL Negative UA BILIRUBIN NEGATIVE mg/dL Negative UA SPECIFIC GRAVITY 1.017 1.016-1.02 2 UA pH 6.0 5.0-9.0 UA UROBILINOGEN <2.0 mg/dL <2.0 UA LEUKOCYTE NEGATIVE Negative Apr 06, 2023 11:39 AM [facility] BASIC METABOLIC PANEL (fasting) Specimen Type: SERUM No comment entered. Ordering Provider: SOFI MANCERA Report Released Date/Time: Apr 05, 2023 04:18 PM Reporting Lab: [address] [address] Performing Lab: [address] [address] UREA NITROGEN 23 mg/dL 7-25 GLUCOSE 163 mg/dL H 65-100 SODIUM 140 mmol/L 135-145 POTASSIUM 4.7 mmol/L 3.5-5.0 CHLORIDE 108 mmol/L 100-110 CO2 23 meq/L 20-30 CREATININE, Serum 1.90 mg/dL H 0.50-1.40 eGFR(CKD-EPI 2020) 34 mL/min L >60 Apr 06, 2023 11:39 AM [facility] CBC AND DIFF (AUTO) Specimen Type: BLOOD No comment entered. Ordering Provider: SOFI MANCERA Report Released Date/Time: Apr 05, 2023 04:18 PM Reporting Lab: [facility] [address] [address] Performing Lab: [facility] [address] [address] WBC 7.36 10*3/uL 4.50-11.00 RBC 4.36 10*6/uL 4.23-5.66 HGB 13.0 g/dL 12.8-17 HCT 40.9 39.2-50.4 MCV 93.8 fL 82-99 MCHC 31.8 g/dL 30.8-35.1 PLT 188 10*3/uL 140-360 RDW-CV 13.6 12.0-16.0 [place], Abs 0.63 10*3/uL 0.30-1.10 MCH 29.8 pg 26.2-32.6 Neut % 66.9 43.7-75.8 Lymph % 19.2 14.0-42.3 [place] % 8.6 5.1-13.7 Eos % 4.6 0.4-6.8 [...] 64 120/64 16 96 0 225 33 [facility] Social History: Smoking Status (Most current) and [...] 26, 2023 10:00 AM VA-TOBACCO FORMER US[place] [facility] Tobacco Use History This section includes a history of the smoking, or tobacco-related health factors, that were collected on or before the date of the Encounter. The data comes from the [place] facility where the Encounter took place. Date/Time Smoking Status/Tobacco Use Comment Gamaliel landin Apr 26, 2023 10:00 AM VA-TOBACCO QUIT 15 YRS OR MORE [place] [facility] [place] [facility] Mar 30, 2022 11:00 AM VA-TOBACCO FORMER USER [place] [facility] [place] [facility] Mar 30, 2022 11:00 AM VA-TOBACCO QUIT 15 YRS OR MORE [place] [facility] [place] [facility] Mar 17, 2021 01:30 PM VA-TOBACCO FORMER [place] [facility] [facility] Mar 17, 2021 01:30 PM VA-TOBACCO NEVER USED [place] [facility] [facility] Mar 17, 2021 01:30 PM VA-TOBACCO QUIT 15 YRS OR MORE [place] [facility] [facility] Mar 31, 2020 10:30 AM VA-TOBACCO FORMER USER [place] [facility] [place] [facility] Mar 31, 2020 10:30 AM VA-TOBACCO QUIT 15 YRS OR MORE [place] [facility] [facility] Nov 23, 2018 12:07 PM VA-TOBACCO FORMER USER [place] [facility] [place] [facility] Nov 23, 2018 12:07 PM VA-TOBACCO QUIT 15 YRS OR MORE [place] [facility] [place] [facility] Nov 22, 2017 10:02 AM VA-TOBACCO NEVER USED [place] [facility] [place] [facility] Mar 14, 2017 09:31 AM LIFETIME NON-TOBACCO USER [place] [facility] [place] [facility] Mar 01, 2016 02:51 PM LIFETIME NON-TOBACCO USER [place] [facility] [place] [facility] Feb 10, 2015 09:31 AM QUIT TOBACCO USE > 7 YEARS AGO [place] 1964 [place] [facility] Encounter Notes: All associated encounter notes This section contains the clinical notes associated to the Encounter. Date/Time Encounter Note(s) Provider Source Apr 26, 2023 11:05 AM OPTOMETRY NOTE: LOCAL TITLE: OPTOMETRY NOTE STANDARD TITLE: OPTOMETRY NOTE DATE OF NOTE: APR 26, 2023@11:05 ENTRY DATE: APR 26, 2023@11:05:28 AUTHOR: DONNA MCFARLAND EXP COSIGNER: URGENCY: STATUS: COMPLETED Patient did not stay to pick out glasses with Applications Programmer Analyst. Returned today for eyeglass fitting, OPT HT fit patient with 1 pair of FT28 eyeglasses as requested. /cas/ Donna Mcfarland [facility] Boatbuilder Apprentice Wood Signed: 04/26/2023 11:06 DONNA MCFARLAND [place] [facility] [facility]
--- OUTSIDE RECORDS SUMMARY | 2024-03-20 13:57 | XMS_ITS | Encounter Summary ---
Author Name [facility] [place] [place] Organization [facility] [place] [facility] [place] Address [address] [place] [address] Care Team Providers Care Elementary Principal Name Role Phone SOFI MANCERA Primary Care [...] [place] MEDIC[place] JONELLE TOWNSEND MEDEX VAIBHAV Александр Mar 13, 2015 [id number] VERONICA BROWN RT PATIENT MEDICARE (WNR) MEDICARE (M) PART B Aug 12, 2007 PART B [id number] VERONICA BROWN RT PATIENT MEDICARE (WNR) MEDICARE (M) PART A Jan 12, 2004 PART A [id number] VERONICA BROWN RT PATIENT Selected Encounter This section includes the information on record at [place] for the Encounter. Date/Time Encounter Type Encounter Description Reason Pro vider Source May 08, 2023 01:41 PM Outpatient Encounter OPTOMETRY E Encounter Template Text not used by [facility] Plan of Treatment: Future Appointments (+ 6 months) and Future Tests (+/- 45 days) The Plan of Treatment section includes future care activities for the [facility] [place] [facility] This section includes future appointments and [...] - MEDICINE [facility] [place] [place] [facility] May 12, 2023 10:00 AM AMBULATORY - MEDICINE [facility] [place] [facility] May 15, 2023 11:20 AM AMBULATORY - MEDICINE [facility] [place] [place] [facility] May 29, 2023 11:00 AM AMBULATORY - MEDICINE [facility] [place] [facility] Jul 05, 2023 03:00 PM AMBULATORY - MEDICINE [facility] [place] [facility] Jul 06, 2023 10:30 AM AMBULATORY - MEDICINE [facility] [place] [facility] August 02, 2023 02:30 PM AMBULATORY - MEDICINE [facility] [place] [facility] August 08, 2023 02:00 PM AMBULATORY - MEDICINE [facility] [place] [facility] Aug 23, 2023 10:30 AM AMBULATORY - REHAB MEDICIN E [facility] [place] [facility] Sep 01, 2023 11:30 AM AMBULATORY - MEDICINE [facility] [place] [facility] Sep 11, 2023 02:30 PM AMBULATORY - MEDICINE [facility] [place] [facility] Sep 15, 2023 10:30 AM AMBULATORY - MEDICINE [facility] [place] [facility] Oct 02, 2023 09:30 AM AMBULATORY - MEDICINE [facility] [place] [facility] Oct 04, 2023 10:00 AM AMBULATORY - MEDICINE [facility] [place] [place] [facility] Oct 11, 2023 09:00 AM AMBULATORY - MEDICINE [facility] [place] [facility] Oct 18, 2023 10:00 AM AMBULATORY - MEDICINE [facility] [place] [facility] Oct 30, 2023 09:00 AM AMBULATORY - MEDICINE [facility] [place] [facility] Nov 06, 2023 01:00 PM AMBULATORY - MEDICINE [facility] Lab Results: +/- 30 days [...] Range Comment Apr 26, 2023 11:12 AM [facility] PO4 Specimen Type: SERUM No comment entered. Ordering Provider: NEENA STEVENS Report Released Date/Time: Nov 01, 2022 09:00 PM Reporting Lab: [facility]ITALUSE[address] [address] Performing Lab: [facility]ITAL[facility]ETS [address] [address] PO4 2.5 mg/dL 2.5-5.0 Apr 26, 2023 11:12 AM [facility] PTH INTACT Specimen Type: SERUM No comment entered. Ordering Provider: NEENA STEVENS Report Released Date/Time: Nov 01, 2022 09:00 PM Reporting Lab: [facility]OSPITALUSETS [address] [address] Performing Lab: [facility]ITAL[facility] [address] [address] PTH INTACT 118.5 pg/mL H 10-65 Apr 26, 2023 11:12 AM [facility] URIC ACID Specimen Type: SERUM No comment entered. Ordering Provider: NEENA STEVENS Report Released Date/Time: Nov 01, 2022 09:00 PM Reporting Lab: [facility]OSPITALUSETS [address] [address] Performing Lab: [facility] [address] [address] URIC ACID 3.1 mg/dL L 3.5-7.2 Apr 26, 2023 11:12 AM [facility] FERRITIN Specimen Type: SERUM No comment entered. Ordering Provider: NEENA STEVENS Report Released Date/Time: Nov 01, 2022 09:00 PM Reporting Lab: [facility] [address] [facility] [address] Performing Lab: [facility] [address] [facility] [address] FERRITIN 40 ng/mL 20-300 Apr 26, 2023 11:12 AM [facility] ALKALINE PHOSPHATASE Specimen Type: SERUM No comment entered. Ordering Provider: NEENA STEVENS Report Released Date/Time: Nov 01, 2022 09:00 PM Reporting Lab: [address] [address] Performing Lab: [address] [address] ALKALINE PHOSPHATASE 78 U/L 40-150 Apr 26, 2023 11:12 AM [facility] MAGNESIUM Specimen Type: SERUM No comment entered. Ordering Provider: NEENA STEVENS Report Released Date/Time: Nov 01, 2022 09:00 PM Reporting Lab: [address] [address] Performing Lab: [address] [address] MAGNESIUM 2.0 mg/dL 1.6-2.6 Apr 26, 2023 11:12 AM [facility] IRON & TIBC PANEL Specimen Type: SERUM No comment entered. Ordering Provider: NEENA STEVENS Report Released Date/Time: Nov 01, 2022 09:00 PM Reporting Lab: [address] [address] Performing Lab: [address] [address] TIBC 341 ug/dL 204-475 IRON 69 ug/dL 40-160 Transferrin Saturation 20.3 20.0-50.0 Apr 26, 2023 11:12 AM [facility] CBC Specimen Type: BLOOD No comment entered. Ordering Provider: NEENA STEVENS Report Released Date/Time: Nov 01, 2022 09:00 PM Reporting Lab: [facility]USEHU[facility] [address] [facility] [address] Performing Lab: [facility] [address] WBC 8.31 10*3/uL 4.50-11.00 RBC 4.42 10*6/uL 4.23-5.66 HGB 13.2 g/dL 12.8-17 HCT 41.3 39.2-50.4 MCV 93.4 fL 82-99 MCHC 32.0 g/dL 30.8-35.1 PLT 196 10*3/uL 140-360 RDW-CV 14.3 12.0-16.0 MCH 29.9 pg 26.2-32.6 Apr 26, 2023 11:12 AM [facility] VITAMIN D (25-[place]) Specimen Type: SERUM No comment entered. Ordering Provider: NEENA STEVENS Report Released Date/Time: Nov 01, 2022 09:00 PM Reporting Lab: [facility] [address] Performing Lab: [facility] [address] [address] VITAMIN D (25-[place]) 36 ng/mL 20-50 Apr 26, 2023 11:12 AM [facility] CALCIUM Specimen Type: SERUM No comment entered. Ordering Provider: NEENA STEVENS Report Released Date/Time: Nov 01, 2022 09:00 PM Reporting Lab: [facility] [address] Performing Lab: [facility] [address] CALCIUM 9.4 mg/dL 8.5-10.2 Apr 26, 2023 11:12 AM [facility] CHOLESTEROL Specimen Type: SERUM No comment entered. Ordering Provider: NEENA STEVENS Report Released Date/Time: Nov 01, 2022 09:00 PM Reporting Lab: [facility]TRN [facility] [address] [facility] [address] Performing Lab: [facility]TR[facility]ENTERTRN [facility] [address] [facility] [address] CHOLESTEROL 131 mg/dL Apr 26, 2023 11:12 AM [facility] HDL CHOLESTEROL Specimen Type: SERUM No comment entered. Ordering Provider: NEENA STEVENS Report Released Date/Time: Nov 01, 2022 09:00 PM Reporting Lab: [facility] SAULTRL TRN [facility] [address] [facility] [address] Performing Lab: [facility]TR[facility]ENTERN [facility]ITALUSEHUDS[facility] [address] [facility] [address] HDL CHOLESTEROL 49 mg/dL 40-60 Apr 26, 2023 11:12 AM [facility] MICROALBUMIN CREATININE RATIO PANEL Specimen Type: URINE No comment entered. Ordering Provider: NEENA STEEVNS Report Released Date/Time: Nov 01, 2022 09:00 PM Reporting Lab: [facility]TRN [facility] [address] [facility] [address] Performing Lab: [facility]TR[facility]ENTERTRN [facility]ITALUSETS [address] [address] MICROALBUMIN/C REATININE RATIO 129.2 mg/g H 0-29.9 MICROALBUMIN,Q UANTITATIVE 12.5 mg/dL RR UNAVAIL CREATININE URINE 96.73 mg/dL Apr 26, 2023 11:12 AM [facility] BASIC METABOLIC PANEL (non-fasting) Specimen Type: SERUM No comment entered. Ordering Provider: NEENA STEVENS Report Released Date/Time: Nov 01, 2022 09:00 PM Reporting Lab: [facility]UL[facility]L WSTRN [facility] [address] [facility] [address] Performing Lab: [facility] [address] UREA NITROGEN 23 mg/dL 7-25 GLUCOSE 136 [...] 26, 2023 10:00 AM VA-TOBACCO FORMER USER [place] [facility] Tobacco Use History This section includes a history of the smoking, or tobacco-related health factors, that were collected on or before the date of the Encounter. The data comes from the [place] facility where the Encounter took place. Date/Time Smoking Status/Tobacco Use Comment F acility Apr 26, 2023 10:00 AM VA-TOBACCO QUIT 15 YRS OR MORE [facility] [facility] Mar 30, 2022 11:00 AM VA-TOBACCO FORMER USER [facility] [facility] Mar 30, 2022 11:00 AM VA-TOBACCO QUIT 15 YRS OR MORE [facility] [place] [facility] Mar 17, 2021 01:30 PM VA-TOBACCO FORMER USER [facility] [place] [facility] Mar 17, 2021 01:30 PM VA-TOBACCO NEVER USED [facility] [place] [facility] Mar 17, 2021 01:30 PM VA-TOBACCO QUIT 15 YRS OR MORE [facility] [facility] Mar 31, 2020 10:30 AM VA-TOBACCO FORMER USER [facility] [place] [facility] Mar 31, 2020 10:30 AM VA-TOBACCO QUIT 15 YRS OR MORE [facility] [facility] Nov 23, 2018 12:07 PM VA-TOBACCO FORMER USER [facility] [facility] Nov 23, 2018 12:07 PM VA-TOBACCO QUIT 15 YRS OR MORE [facility] [facility] Nov 22, 2017 10:02 AM VA-TOBACCO NEVER USED [facility] [place] [facility] Mar 14, 2017 09:31 AM LIFETIME NON-TOBACCO USER [place] [facility] Mar 01, 2016 02:51 PM LIFETIME NON-TOBACCO USER [place] [facility] Feb 10, 2015 09:31 AM QUIT TOBACCO USE > 7 YEARS AGO quit in 1964 [facility] Encounter Notes: All associated encounter notes This section contains the clinical notes associated to the Encounter. Date/Time Encounter Note(s) Provider Source May 08, 2023 01:41 PM TELEPHONE ENCOUNTE R NOTE: LOCAL TITLE: TELEPHONE NOTE/SPECIALTY CLINIC STANDARD TITLE: TELEPHONE ENCOUNTER NOTE DATE OF NOTE: MAY 08, 2023@13:41 ENTRY DATE: MAY 08, 2023@13:41:17 AUTHOR: LEONARD ESPARZA COSIGNER: URGENCY: STATUS: COMPLETED TELEPHONE NOTE/SPECIALTY CLINIC Has ADDENDA Patient called to schedule an appointemnt for his fitting. Please call back at [phone], thank you. /cas/ GLYNN ESPARZA COMBAT CONTROL MANAGER Signed: 05/08/2023 13:42 Receipt Acknowledged By: 05/08/2023 14:29 /cas/ GEOVANNY LOPEZ 05/08/2023 14:15 /cas/ JOSH SANTOS ADVANCED INSTRUMENT AND CONTROLS TECHNICIAN 05/08/2023 ADDENDUM STATUS: COMPLETED Spoke with and appt.scheduled 03. /aida SANTOS ADVANCED INSTRUMENT AND CONTROLS TECHNICIAN Signed: 05/08/2023 14:17 LEONARD ESPARZA [facility]
--- OUTSIDE RECORDS SUMMARY | 2024-03-20 13:58 | XMS_ITS ---
Author Name [facility] [place] Address [address] [place] [address] Care Team Providers Care Cheese Wrapper Name Role Phone NERI MANCERA Primary Care [...] [employer] CHARAN Haque Mar 13, 2015 [id number] VERONICA BROWN RT PATIENT MEDICARE (WNR) MEDICARE (M) PART B Aug 12, 2007 PART B [id number] VERONICA BROWN RT PATIENT MEDICARE (WNR) MEDICARE (M) PART A Jan 12, 2004 PART A [id number] VERONICA BROWN RT PATIENT Selected Encounter This section includes the information on record at [place] for the Encounter. Date/Time Encounter Type Encounter Description Reason Pro vider Source August 09, 2023 11:20 AM Outpatient Encounter ADMIN PAT ACTIVTIES (MASNONCT) IHE Encounter Template Text not used by [place] Plan of Treatment: Future Appointments (+ 6 months) and Future Tests (+/- 45 days) The Plan of Treatment section includes future care activities for the patient [facility] [place] [facility] This section includes future appointments and future orders which are active, pending or scheduled. Future Appointments This section includes appointments that were scheduled to occur 6 months from the date of the Encounter, up to a maximum of 20 appointments. The data comes from all [place] treatment facilities. Appointment Date/Time Appointment Type Appointme nt Facility Name Aug 23, 2023 10:30 AM [facility] [place] [facility] Sep 01, 2023 11:30 AM [facility] [place] [facility] Sep 11, 2023 02:30 PM [facility] [place] [facility] Sep 15, 2023 10:30 AM [facility] [place] [facility] Oct 02, 2023 09:30 AM [facility] [place] [facility] Oct 04, 2023 10:00 AM [facility] [place] [facility] Oct 11, 2023 09:00 AM [facility] [place] [facility] Oct 18, 2023 10:00 AM [facility] [place] [facility] Oct 30, 2023 09:00 AM [facility] [place] [facility] Nov 06, 2023 01:00 PM [facility] [place] [facility] Nov 20, 2023 09:30 AM [facility] [place] [facility] Dec 18, 2023 09:30 AM [facility] [place] [facility] Dec 27, 2023 02:00 PM [facility] [place] [facility] Dec 29, 2023 01:30 PM [facility] [place] [facility] Jan 01, 2024 02:30 PM [facility] [place] [facility] Jan 08, 2024 03:30 PM [facility] [place] [facility] Jan 29, 2024 10:30 AM [facility] Jan 30, 2024 03:30 PM [facility] [place] [facility] [place] [facility] 2024 02:30 PM [facility] [place] [facility] [place] [facility] Feb 05, 2024 11:00 AM [facility] Lab Results: +/- 30 days of the encounter This section includes the Chemistry and Hematology Lab Results on record with [place] for the patient. Radiology Reports and Pathology Reports are provided separately, in subsequent sections. Lab Results This section contains the Chemistry/Hematology Results that were resulted 30 days before or 30 daysafter the date of the Encounter. Date/Time Source Result Type Result - Unit Interpretation Reference Range Comment Aug 23, 2023 11:19 AM [facility] BASIC METABOLIC PANEL (fasting) Specimen Type: SERUM No comment entered. Ordering Provider: NERI MANCERA Report Released Date/Time: Aug 20, 2023 07:51 PM Reporting Lab: [address] [address] Performing Lab: [address] [address] UREA NITROGEN 26 mg/dL H 7-25 GLUCOSE 120 mg/dL H 65-100 SODIUM 142 mmol/L 135-145 POTASSIUM 5.0 mmol/L 3.5-5.0 CHLORIDE 112 mmol/L H 100-110 CO2 25 meq/L 20-30 CREATININE, Serum 1.90 mg/dL H 0.50-1.40 eGFR(CKD-EPI 2020) 34 mL/min L >60 Aug 23, 2023 11:19 AM [facility] LIPID PANEL FASTING Specimen Type: SERUM No comment entered. Ordering Provider: NERI MANCERA Report Released Date/Time: Aug 20, 2023 07:51 PM Reporting Lab: [address] [address] Performing Lab: [address] [address] CHOLESTEROL 130 mg/dL TRIGLYCERIDE 120 mg/dL 0-150 LDL calculated 54 mg/dL 0-129 CHOL/HDL 2.5 HDL CHOLESTEROL 52 mg/dL 40-60 Aug 23, 2023 11:19 AM [facility] LIVER FUNCTION Specimen Type: SERUM No comment entered. Ordering Provider: NERI MANCERA Report Released Date/Time: Aug 20, 2023 07:51 PM Reporting Lab: [facility] [address] [facility] [address] Performing Lab: [facility] [address] [facility] [address] PROTEIN,TOTAL 6.3 g/dL 6.0-8.3 ALBUMIN 3.6 g/dL 3.5-5.0 ALKALINE PHOSPHATASE 66 U/L 40-150 AST 14 U/L 5-34 ALT 14 U/L BILIRUBIN, TOTAL 0.6 mg/dL 0.2-1.2 Aug 23, 2023 11:19 AM [facility] TSH Specimen Type: SERUM No comment entered. Ordering Provider: NERI MANCERA Report Released Date/Time: Aug 20, 2023 07:51 PM Reporting Lab: [facility] [address] [facility] [address] Performing Lab: [facility] [address] [facility] [address] TSH 1.38 u[IU]/mL 0.35-5.00 Aug 23, 2023 11:19 AM [facility] HEMOGLOBIN A1C PANEL Specimen Type: BLOOD Comment: Values obtained from A1C measurements can vary. For atypical A1C assays, a reported value of 7.0 could actually be between 6.72 and 7.28 if measured by a reference method. A reported value of 9.0 could actually be between 8.73 and 9.27. Ref: http://www.ngs p.org/CAPdata. asp Ordering Provider: NERI MANCERA Report Released Date/Time: Aug 20, 2023 07:51 PM Reporting Lab: [facility] [address] [facility] [address] Performing Lab: [address] [address] HEMOGLOBIN A1C 6.3 H 4.0-5.6 Aug 23, 2023 11:19 AM [facility] CBC AND DIFF (AUTO) Specimen Type: BLOOD No comment entered. Ordering Provider: NERI MANCERA Report Released Date/Time: Aug 20, 2023 07:51 PM Reporting Lab: [facility] [address] [facility] [address] Performing Lab: [facility] [address] [facility] [address] WBC 7.43 10*3/uL 4.50-11.00 RBC 4.21 10*6/uL L 4.23-5.66 HGB 13.6 g/dL 12.8-17 HCT 40.0 39.2-50.4 MCV 95.0 fL 82-99 MCHC 34.0 g/dL 30.8-35.1 PLT 165 10*3/uL 140-360 RDW-CV 14.3 12.0-16.0 [place], Abs 0.72 10*3/uL 0.30-1.10 MCH 32.3 pg 26.2-32.6 NEUT % 59.5 43.7-75.8 LYMPH % 24.2 14.0-42.3 MONO % 9.7 5.1-13.7 Eos % 5.9 0.4-6.8 Baso % 0.3 0.1-2.0 Neut, Abs 4.42 10*3/uL 2.20-7.60 Lymph, Abs 1.80 10*3/uL 1.00-3.20 Eos, Abs 0.44 10*3/uL 0.03-0.44 Baso, Abs 0.02 10*3/uL 0.01-0.13 Immature Gran % 0.4 0.0-0.7 Immature Gran, Abs 0.03 10*3/uL 0.00-0.06 Aug 23, 2023 11:19 AM [facility] URIC ACID Specimen Type: SERUM No comment entered. Ordering Provider: NERI MANCERA Report Released Date/Time: Aug 20, 2023 07:51 PM Reporting Lab: [address] [address] Performing Lab: [facility] [address] [facility] [address] URIC ACID 3.0 mg/dL L 3.5-7.2 Aug 23, 2023 11:19 AM [facility] MICROALBUMIN CREATININE RATIO PANEL Specimen Type: URINE No comment entered. Ordering Provider: NERI MANCERA Report Released Date/Time: Aug 20, 2023 07:51 PM Reporting Lab: [address] [address] Performing Lab: [address] [address] MICROALBUMIN/C REATININE RATIO canc mg/g 0-29.9 MICROALBUMIN,Q UANTITATIVE < 0.5 mg/dL RR UNAVAIL CREATININE URINE 108.02 mg/dL Aug 23, 2023 11:19 AM [facility] URINALYSIS CLEAN CATCH Specimen Type: URINE Comment: If Glucose = >500 and Ketones are positive, please alert the Physician. Ordering Provider: NERI MANCERA Report Released Date/Time: Aug 20, 2023 07:51 PM Reporting Lab: [address] [address] Performing Lab: [address] [address] UA COLOR Light-Yellow Yellow UA APPEARANCE Clear Clear UA GLUCOSE NEGATIVE mg/dL Negative UA KETONES NEGATIVE mg/dL Negative UA BLOOD NEGATIVE mg/dL Negative UA PROTEIN 20 mg/dL Negative UA NITRITE NEGATIVE mg/dL Negative UA BILIRUBIN NEGATIVE mg/dL Negative UA SPECIFIC GRAVITY 1.018 1.016-1.02 2 UA pH 6.0 5.0-9.0 UA UROBILINOGEN <2.0 mg/dL <2.0 UA LEUKOCYTE NEGATIVE Negative Social History: Smoking Status (Most current) and Tobacco Use (All prior to encounter date) This section includes the most current, and the historical, smoking and tobacco- related health factors from the [place] facility where the Encounter took place. Current Smoking Status This section includes the most current smoking, or tobacco-related health factor, from the [place] facility where the Encounter took place. Date/Time Current Smoking Status Comment Facil zofia Apr 26, 2023 10:00 AM [place]-TOBACCO FORMER USER [place] [facility] [place] [facility] Tobacco Use History This section includes a history of the smoking, or tobacco-related health factors, that were collected on or before the date of the Encounter. The data comes from the [place] facility where the Encounter took place. Date/Time Smoking Status/Tobacco Use Comment F acility Apr 26, 2023 10:00 AM VA-TOBACCO QUIT 15 YRS OR MORE [facility] [place] [facility] Mar 30, 2022 11:00 AM [place]-TOBACCO FORMER USER [facility] [place] [facility] Mar 30, 2022 11:00 AM VA-TOBACCO QUIT 15 YRS OR MORE [facility] [place] [facility] Mar 17, 2021 01:30 PM [place]-TOBACCO FORMER USER [facility] [place] [facility] Mar 17, 2021 01:30 PM VA-TOBACCO NEVER USED [facility] [place] [facility] Mar 17, 2021 01:30 PM VA-TOBACCO QUIT 15 YRS OR MORE [facility] [place] [facility] Mar 31, 2020 10:30 AM VA-TOBACCO FORMER USER [facility] [place] [facility] Mar 31, 2020 10:30 AM VA-TOBACCO QUIT 15 YRS OR MORE [facility] [place] [facility] Nov 23, 2018 12:07 PM VA-TOBACCO FORMER USER [facility] [place] [facility] Nov 23, 2018 12:07 PM VA-TOBACCO QUIT 15 YRS OR MORE [facility] [place] [facility] Nov 22, 2017 10:02 AM VA-TOBACCO NEVER USED [facility] [place] [facility] Mar 14, 2017 09:31 AM LIFETIME NON-TOBACCO USER [facility] [place] [facility] Mar 01, 2016 02:51 PM LIFETIME NON-TOBACCO USER [facility] [place] [facility] Feb 10, 2015 09:31 AM QUIT TOBACCO USE > 7 YEARS AGO quit in 1964 [place] [facility] [place] [facility] Encounter Notes: All associated encounter notes This section contains the clinical notes associated to the Encounter. Date/Time Encounter Note(s) Provider Source August 09, 2023 11:20 AM ADMINISTRATIVE NOTE: LOCAL TITLE: CCC: SCHEDULING ADMINISTRATION STANDARD TITLE: ADMINISTRATIVE NOTE DATE OF NOTE: AUGUST 09, 2023@11:20:55 ENTRY DATE: AUGUST 09, 2023@11:20:55 AUTHOR: MARGY CRAIG EXP COSIGNER: URGENCY: STATUS: COMPLETED CCC: SCHEDULING ADMINISTRATION Has ADDENDA Patient Demographics Patient Name: JACQUELYN BROWN Patient Primary Phone: [phone] Patient Primary Address: [address] [place] [id number] Patient : 1940 Patient Age: 83 Caller/Recipient Relation to Patient: Self Administrative Administrative Note Reason: Medication Renewal [place] Medications Refill/Renewal Request: TAMSULOSIN HCL 0.4MG CAP TO BE MAILED /cas/ MARGY CRAIG Signed: 08/09/2023 11:21 Receipt Acknowledged By: 08/09/2023 11:39 /cas/ Jeanette Garcia RN, BSN Primary Care 08/09/2023 12:59 /cas/ Neri Mancera MD Staff Physician 08/09/2023 ADDENDUM STATUS: COMPLETED Done. /cas/ Neri Mancera MD Staff Physician Signed: 08/09/2023 12:59 MARGY CRAIG [place] [facility]
--- OUTSIDE RECORDS SUMMARY | 2024-03-20 13:58 | XMS_ITS | Encounter Summary ---
Author Name [facility] [place] Address [address] [place] [address] Care Team Providers Care Data Integration Developer Name Role Phone SOFI MANCERA Primary Care [...] [place] MEDICARE JONELLE Haque Mar 13, 2015 [id number] VERONICA BROWN RT PATIENT MEDICARE (WNR) MEDICARE (M) PART B Aug 12, 2007 PART B [id number] VERONICA BROWN RT PATIENT MEDICARE (WNR) MEDICARE (M) PART A Jan 12, 2004 PART A [id number] VERONICA BROWN RT PATIENT Selected Encounter This section includes the information on record at [place] for the Encounter. Date/Time Encounter Type Encounter Description Reason Pro vider Source August 01, 2023 12:00 PM Outpatient Encounter EVENT (HISTORICAL) IHE Encounter Template Text not used by [place] Plan of Treatment: Future Appointments (+ 6 months) and Future Tests (+/- 45 days) The Plan of Treatment section includes future care activities for the patient [facility] [place] [facility] This section includes future appointments and future orders which are active, pending or scheduled. Future Appointments This section includes appointments that were scheduled to occur 6 months from the date of the Encounter, up to a maximum of 20 appointments. The data comes from all [place] treatment facilities. Appointment Date/Time Appointment Type Appointme nt Facility Name August 02, 2023 02:30 PM AM[facility]ULATORY [facility]INE [facility] [place] [facility] August 08, 2023 02:00 PM AM[facility]ULATORY [facility] MEDICINE [facility] [place] [facility] Aug 23, 2023 10:30 AM AMBULATORY - REHAB MEDICIN E [facility] [place] [facility] Sep 01, 2023 11:30 AM [facility]ULATORY [facility] MEDICINE [facility] [place] [facility] Sep 11, 2023 02:30 PM AMBULATORY [facility] MEDICINE [facility] [place] [facility] Sep 15, 2023 10:30 AM AMBULAT[facility] MEDICINE [facility] [place] [facility] Oct 02, 2023 09:30 AM AMBULAT[facility] - MEDICINE [facility] [place] [facility] Oct 04, 2023 10:00 AM AMBULATORY - MEDICINE [facility] [place] [facility] Oct 11, 2023 09:00 AM AMBULATORY - MEDICINE [facility] [place] [facility] Oct 18, 2023 10:00 AM AMBULATORY - MEDICINE [facility] [place] [facility] Oct 30, 2023 09:00 AM AMBULATORY - MEDICINE [facility] [place] [facility] Nov 06, 2023 01:00 PM AMBULATORY - MEDICINE [facility] [place] [facility] Nov 20, 2023 09:30 AM AMBULATORY - MEDICINE [facility] [place] [facility] Dec 18, 2023 09:30 AM AMBULATORY - MEDICINE [facility] [place] [facility] Dec 27, 2023 02:00 PM AMBULATORY - MEDICINE [facility] [place] [facility] Dec 29, 2023 01:30 PM AMBULATORY - MEDICINE [facility] [place] [facility] Jan 01, 2024 02:30 PM AMBULATORY - MEDICINE [facility] [place] [facility] Jan 08, 2024 03:30 PM [place] [facility] Jan 29, 2024 10:30 AM [place] [facility] Jan 30, 2024 03:30 PM [place] [place] [place] [facility] Lab Results: +/- 30 days of the encounter This section includes the Chemistry and Hematology Lab Results on record with [place] for the patient. Radiology Reports and Pathology Reports are provided separately, in subsequent sections. Lab Results This section contains the Chemistry/Hematology Results that were resulted 30 days before or 30 daysafter the date of the Encounter. Date/Time Source Result Type Result - Unit Interpretation Reference Range Comment Aug 23, 2023 11:19 AM [facility] BASIC METABOLIC PANEL (fasting) Specimen Type: SERUM No comment entered. Ordering Provider: SOFI MANCERA Report Released Date/Time: Aug 20, 2023 07:51 PM Reporting Lab: [address] [address] Performing Lab: [address] [address] UREA NITROGEN 26 mg/dL H 7-25 GLUCOSE 120 mg/dL H 65-100 SODIUM 142 mmol/L 135-145 POTASSIUM 5.0 mmol/L 3.5-5.0 CHLORIDE 112 mmol/L H 100-110 CO2 25 meq/L 20-30 CREATININE, Serum 1.90 mg/dL H 0.50-1.40 eGFR(CKD-EPI 2020) 34 mL/min L >60 Aug 23, 2023 11:19 AM [facility] TSH Specimen Type: SERUM No comment entered. Ordering Provider: SOFI MANCERA Report Released Date/Time: Aug 20, 2023 07:51 PM Reporting Lab: [address] [address] Performing Lab: [address] [address] TSH 1.38 u[IU]/mL 0.35-5.00 Aug 23, 2023 11:19 AM [facility] LIPID PANEL FASTING Specimen Type: SERUM No comment entered. Ordering Provider: SOFI MANCERA Report Released Date/Time: Aug 20, 2023 07:51 PM Reporting Lab: [address] [address] Performing Lab: [address] [address] CHOLESTEROL 130 mg/dL TRIGLYCERIDE 120 mg/dL 0-150 LDL calculated 54 mg/dL 0-129 CHOL/HDL 2.5 HDL CHOLESTEROL 52 mg/dL 40-60 Aug 23, 2023 11:19 AM [facility] LIVER FUNCTION Specimen Type: SERUM No comment entered. Ordering Provider: SOFI MANCERA Report Released Date/Time: Aug 20, 2023 07:51 PM Reporting Lab: [address] [address] Performing Lab: [address] [address] PROTEIN,TOTAL 6.3 g/dL 6.0-8.3 ALBUMIN 3.6 g/dL 3.5-5.0 ALKALINE PHOSPHATASE 66 U/L 40-150 AST 14 U/L 5-34 ALT 14 U/L BILIRUBIN, TOTAL 0.6 mg/dL 0.2-1.2 Aug 23, 2023 11:19 AM [facility] HEMOGLOBIN A1C PANEL Specimen Type: BLOOD Comment: Values obtained from A1C measurements can vary. For atypical A1C assays, a reported value of 7.0 could actually be between 6.72 and 7.28 if measured by a reference method. A reported value of 9.0 could actually be between 8.73 and 9.27. Ref: http://www.ngs p.org/CAPdata. asp Ordering Provider: SOFI MANCERA Report Released Date/Time: Aug 20, 2023 07:51 PM Reporting Lab: [address] [address] Performing Lab: [address] [address] HEMOGLOBIN A1C 6.3 H 4.0-5.6 Aug 23, 2023 11:19 AM [facility] URIC ACID Specimen Type: SERUM No comment entered. Ordering Provider: SOFI MANCERA Report Released Date/Time: Aug 20, 2023 07:51 PM Reporting Lab: [facility] [address] [facility] [address] Performing Lab: [address] [address] URIC ACID 3.0 mg/dL L 3.5-7.2 Aug 23, 2023 11:19 AM [facility] MICROALBUMIN CREATININE RATIO PANEL Specimen Type: URINE No comment entered. Ordering Provider: SOFI MANCERA Report Released Date/Time: Aug 20, 2023 07:51 PM Reporting Lab: [address] [address] Performing Lab: [address] [address] MICROALBUMIN/C REATININE RATIO canc mg/g 0-29.9 MICROALBUMIN,Q UANTITATIVE < 0.5 mg/dL RR UNAVAIL CREATININE URINE 108.02 mg/dL Aug 23, 2023 11:19 AM [facility] CBC AND DIFF (AUTO) Specimen Type: BLOOD No comment entered. Ordering Provider: SOFI MANCERA Report Released Date/Time: Aug 20, 2023 07:51 PM Reporting Lab: [address] [address] Performing Lab: [address] [address] WBC 7.43 10*3/uL 4.50-11.00 RBC 4.21 10*6/uL L 4.23-5.66 HGB 13.6 g/dL 12.8-17 HCT 40.0 39.2-50.4 MCV 95.0 fL 82-99 MCHC 34.0 g/dL 30.8-35.1 PLT 165 10*3/uL 140-360 RDW-CV 14.3 12.0-16.0 [place], Abs 0.72 10*3/uL 0.30-1.10 MCH 32.3 pg [...] 10*3/uL 0.00-0.06 Aug 23, 2023 11:19 AM [facility] URINALYSIS CLEAN CATCH Specimen Type: URINE Comment: If Glucose = >500 and Ketones are positive, please alert the Physician. Ordering Provider: SOFI MANCERA Report Released Date/Time: Aug 20, 2023 07:51 PM Reporting Lab: [facility] [address] [facility] [address] Performing Lab: [address] [address] UA COLOR Light-Yellow Yellow UA APPEARANCE Clear [...] and tobacco- related health factors from the [place] facility where the Encounter took place. Current Smoking Status This section includes the most current smoking, or tobacco-related health factor, from the [place] facility where the Encounter took place. Date/Time Current Smoking Status Comment María Elena armijo Apr 26, 2023 10:00 AM [place] FOR[place] US[place] [facility] [place] [facility] Tobacco Use History This section includes a history of the smoking, or tobacco-related health factors, that were collected on or before the date of the Encounter. The data comes from the [place] facility where the Encounter took place. Date/Time Smoking Status/Tobacco Use Comment F acshahbaz Apr 26, 2023 10:00 AM VA-TOBACCO QUIT 15 YRS OR MORE [place] [facility] [place] [facility] Mar 30, 2022 11:00 AM VA-TOBACCO FORMER USER [place] [facility] [place] [facility] Mar 30, 2022 11:00 AM VA-TOBACCO QUIT 15 YRS OR MORE [facility] [place] [facility] Mar 17, 2021 01:30 PM VA-TOBACCO FORMER USER [facility] [place] [facility] Mar 17, 2021 01:30 PM VA-TOBACCO NEVER USED [place] [facility] [place] [facility] Mar 17, 2021 01:30 PM VA-TOBACCO QUIT 15 YRS OR MORE [place] [facility] [place] [facility] Mar 31, 2020 10:30 AM VA-TOBACCO FORMER USER [place] [facility] [place] [facility] Mar 31, 2020 10:30 AM VA-TOBACCO QUIT 15 YRS OR MORE [place] [facility] [place] [facility] Nov 23, 2018 12:07 PM VA-TOBACCO FORMER USER [place] [facility] [place] [facility] Nov 23, 2018 12:07 PM VA-TOBACCO QUIT 15 YRS OR MORE [place] [facility] [place] [facility] Nov 22, 2017 10:02 AM VA-TOBACCO NEVER USED [place] [facility] [place] [facility] Mar 14, 2017 09:31 AM LIFETIME NON-TOBACCO USER [place] [facility] [place] [facility] Mar 01, 2016 02:51 PM LIFETIME NON-TOBACCO USER [facility] [place] [facility] Feb 10, 2015 09:31 AM QUIT TOBACCO USE > 7 YEARS AGO quit in 1964 [place] [facility] [place] [facility] Encounter Notes: All associated encounter notes This section contains the clinical notes associated to the Encounter. Date/Time Encounter Note(s) Provider Source August 01, 2023 12:00 PM NONVA NOTE: LOCAL TITLE: NON-VA OUTPATIENT NOTES STANDARD TITLE: NONVA NOTE DATE OF NOTE: AUGUST 01, 2023@12:00 ENTRY DATE: AUGUST 11, 2023@15:13:17 AUTHOR: ANTHONY ELENA EXP COSIGNER: URGENCY: STATUS: COMPLETED VistA Imaging - Scanned Document SCANNED DOCUMENT SIGNATURE NOT REQUIRED Electronically Filed: 08/11/2023 by: ANTHONY RODRIGUEZ [facility]
--- OUTSIDE RECORDS SUMMARY | 2024-03-20 13:58 | XMS_ITS | Encounter Summary ---
Author Name [facility] [place] Address [address] [place] [address] Care Team Providers Care Beauty Sales Consultant Name Role Phone SOFI MANCERA Primary Care [...] [place] JONELLE Haque Mar 13, 2015 [id number] VERONICA BROWN RT PATIENT MEDICARE (WNR) MEDICARE (M) PART B Aug 12, 2007 PART B [id number] VERONICA BROWN RT PATIENT MEDICARE (WNR) MEDICARE (M) PART A Jan 12, 2004 PART A [id number] VERONICA BROWN RT PATIENT Selected Encounter This section includes the information on record at [place] for the Encounter. Date/Time Encounter Type Encounter Description Reason Pro vider Source August 10, 2023 02:58 PM Outpatient Encounter PRIMARY CARE/MEDICINE IHE Encounter Template Text not used by VA Plan of Treatment: Future Appointments (+ 6 months) and Future Tests (+/- 45 days) The Plan of Treatment section includes future care activities for the patient from [facility] [place] [facility] This section includes future appointments and [...] REHAB MEDICIN E [facility] [place] [facility] Sep 01, 2023 11:30 AM AMBULATORY - MEDICINE [facility] [place] [facility] Sep 11, 2023 02:30 PM AMBULATORY - MEDICINE [facility] [place] [facility] Sep 15, 2023 10:30 AM AM[facility]ULATORY [facility] MEDICINE [facility] [place] [facility] Oct 02, 2023 09:30 AM AM[facility]ULATORY [facility] MEDICINE [facility] [place] [facility] Oct 04, 2023 10:00 AM AM[facility]ULATORY [facility] MEDICINE [facility] [place] [facility] Oct 11, 2023 09:00 AM AM[facility]ULATORY [facility] MEDICINE [facility] [place] [facility] Oct 18, 2023 10:00 AM AMBULATORY [facility] MEDICINE [facility] [place] [facility] Oct 30, 2023 09:00 AM AMBULATORY - MEDICINE [facility] [place] [facility] Nov 06, 2023 01:00 PM AMBULATORY - MEDICINE [facility] [place] [facility] Nov 20, 2023 09:30 AM AMBULATORY - MEDICINE [facility] [place] [facility] Dec 18, 2023 09:30 AM AMBULATORY - MEDICINE [facility] [place] [facility] Dec 27, 2023 02:00 PM AMBULATORY - MEDICINE [facility] [place] [facility] Dec 29, 2023 01:30 PM AMBULATORY - MEDICINE [facility] [place] [facility] Jan 01, 2024 02:30 PM AMBULATORY - MEDICINE [facility] [place] [facility] Jan 08, 2024 03:30 PM AMBULATORY [facility] MEDICINE [facility] [place] [facility] Jan 29, 2024 10:30 AM [facility]ULATORY [facility]ICINE [facility] [place] [facility] Jan 30, 2024 03:30 PM [place] [facility] 2024 02:30 PM [place] [facility] Feb 05, 2024 11:00 AM AMBULATORY - MEDICINE [facility] Lab Results: +/- 30 days of the encounter This section includes the Chemistry and Hematology Lab Results on record with [place] for the patient. Radiology Reports and Pathology Reports are provided separately, in subsequent sections. Lab Results This section contains the Chemistry/Hematology Results that were resulted 30 days before or 30 daysafter the date of the Encounter. Date/Time Source Result Type Result - Unit Interpretation Reference Range Comment Aug 23, 2023 11:19 AM [facility] BASIC METABOLIC PANEL (fasting) Specimen Type: SERUM No comment entered. Ordering Provider: SOFI MANCERA Report Released Date/Time: Aug 20, 2023 07:51 PM Reporting Lab: [address] [address] Performing Lab: [address] [address] UREA NITROGEN 26 mg/dL H 7-25 GLUCOSE 120 mg/dL H 65-100 SODIUM 142 mmol/L 135-145 POTASSIUM 5.0 mmol/L 3.5-5.0 CHLORIDE 112 mmol/L H 100-110 CO2 25 meq/L 20-30 CREATININE, Serum 1.90 mg/dL H 0.50-1.40 eGFR(CKD-EPI 2020) 34 mL/min L >60 Aug 23, 2023 11:19 AM [facility] LIPID PANEL FASTING Specimen Type: SERUM No comment entered. Ordering Provider: SOFI MANCERA Report Released Date/Time: Aug 20, 2023 07:51 PM Reporting Lab: [address] [address] Performing Lab: [address] [address] CHOLESTEROL 130 mg/dL TRIGLYCERIDE 120 mg/dL 0-150 LDL calculated 54 mg/dL 0-129 CHOL/HDL 2.5 HDL CHOLESTEROL 52 mg/dL 40-60 Aug 23, 2023 11:19 AM [facility] LIVER FUNCTION Specimen Type: SERUM No comment entered. Ordering Provider: SOFI MANCERA Report Released Date/Time: Aug 20, 2023 07:51 PM Reporting Lab: [facility] [address] [facility] [address] Performing Lab: [address] [address] PROTEIN,TOTAL 6.3 g/dL 6.0-8.3 ALBUMIN 3.6 g/dL 3.5-5.0 ALKALINE PHOSPHATASE 66 U/L 40-150 AST 14 U/L 5-34 ALT 14 U/L BILIRUBIN, TOTAL 0.6 mg/dL 0.2-1.2 Aug 23, 2023 11:19 AM [facility] TSH Specimen Type: SERUM No comment entered. Ordering Provider: SOFI MANCERA Report Released Date/Time: Aug 20, 2023 07:51 PM Reporting Lab: [facility] [address] [facility] [address] Performing Lab: [facility] [address] [facility] [address] TSH 1.38 u[IU]/mL 0.35-5.00 Aug 23, 2023 11:19 AM [facility] HEMOGLOBIN A1C PANEL Specimen Type: BLOOD [...] Aug 20, 2023 07:51 PM Reporting Lab: [address] [address] Performing Lab: [address] [address] HEMOGLOBIN A1C 6.3 H 4.0-5.6 Aug 23, 2023 11:19 AM [facility] CBC AND DIFF (AUTO) Specimen Type: BLOOD No comment entered. Ordering Provider: SOFI MANCERA Report Released Date/Time: Aug 20, 2023 07:51 PM Reporting Lab: [facility] [address] [facility] [address] Performing Lab: [address] [address] WBC 7.43 10*3/uL 4.50-11.00 RBC 4.21 10*6/uL L 4.23-5.66 HGB 13.6 g/dL 12.8-17 HCT 40.0 39.2-50.4 MCV 95.0 fL 82-99 MCHC 34.0 g/dL 30.8-35.1 PLT 165 10*3/uL 140-360 RDW-CV 14.3 12.0-16.0 Crook, Abs 0.72 10*3/uL 0.30-1.10 MCH 32.3 pg [...] 10*3/uL 0.00-0.06 Aug 23, 2023 11:19 AM [facility] URIC ACID Specimen Type: SERUM No comment entered. Ordering Provider: SOFI MANCERA Report Released Date/Time: Aug 20, 2023 07:51 PM Reporting Lab: [address] [address] Performing Lab: [address] [address] URIC ACID 3.0 mg/dL L 3.5-7.2 Aug 23, 2023 11:19 AM [facility] MICROALBUMIN CREATININE RATIO PANEL Specimen Type: URINE No comment entered. Ordering Provider: SOFI MANCERA Report Released Date/Time: Aug 20, 2023 07:51 PM Reporting Lab: [facility] [address] [facility] [address] Performing Lab: [facility] [address] [facility] [address] MICROALBUMIN/C REATININE RATIO canc mg/g 0-29.9 MICROALBUMIN,Q UANTITATIVE < 0.5 mg/dL RR UNAVAIL CREATININE URINE 108.02 mg/dL Aug 23, 2023 11:19 AM [facility] URINALYSIS CLEAN CATCH Specimen Type: URINE Comment: If Glucose = >500 and Ketones are positive, please alert the Physician. Ordering Provider: SOFI MANCERA Report Released Date/Time: Aug 20, 2023 07:51 PM Reporting Lab: [facility] [address] [facility] [address] Performing Lab: [address] [address] UA COLOR Light-Yellow Yellow UA APPEARANCE Clear [...] VA-TOBACCO FORMER USER [facility] [place] [facility] Tobacco Use History This section includes a history of the smoking, or tobacco-related health factors, that were collected on or before the date of the Encounter. The data comes from the [place] facility where the Encounter took place. Date/Time Smoking Status/Tobacco Use Comment F [email or web address] Apr 26, 2023 10:00 AM VA-TOBACCO QUIT 15 YRS OR MORE [place] [facility] [place] [facility] Mar 30, 2022 11:00 AM VA-TOBACCO FORMER USER [facility] [place] [facility] Mar 30, 2022 11:00 AM VA-TOBACCO QUIT 15 YRS OR MORE [facility] [place] [facility] Mar 17, 2021 01:30 PM VA-TOBACCO FORMER USER [facility] [place] [facility] Mar 17, 2021 01:30 PM VA-TOBACCO NEVER USED [place] [facility] [place] [facility] Mar 17, 2021 01:30 PM VA-TOBACCO QUIT 15 YRS OR MORE [place] [facility] [place] [facility] Mar 31, 2020 10:30 AM VA-TOBACCO FORMER USER [place] [facility] [place] [facility] Mar 31, 2020 10:30 AM VA-TOBACCO QUIT 15 YRS OR MORE [facility] [place] [facility] Nov 23, 2018 12:07 PM VA-TOBACCO FORMER USER [facility] [place] [facility] Nov 23, 2018 12:07 PM VA-TOBACCO QUIT 15 YRS OR MORE [place] [facility] [place] [facility] Nov 22, 2017 10:02 AM VA-TOBACCO NEVER USED [place] [facility] [place] [facility] Mar 14, 2017 09:31 AM LIFETIME NON-TOBACCO USER [facility] [place] [facility] Mar 01, 2016 02:51 PM LIFETIME NON-TOBACCO USER [facility] [place] [facility] Feb 10, 2015 09:31 AM QUIT TOBACCO USE > 7 YEARS AGO quit in 1964 [place] [facility] [place] [facility] Encounter Notes: All associated encounter notes This section contains the clinical notes associated to the Encounter. Date/Time Encounter Note(s) Provider Source August 10, 2023 02:58 PM NONVA CONSULT: LOCAL TITLE: MD/OUTSIDE CONSULT REPORT SUMMARY STANDARD TITLE: NONVA CONSULT DATE OF NOTE: AUGUST 10, 2023@14:58 ENTRY DATE: AUGUST 10, 2023@14:58:16 AUTHOR: SOFI MANCERA EXP COSIGNER: URGENCY: STATUS: COMPLETED 08-01-23 office visit [facility] Chief complaint: Follow-up BPH Kidney stones Hydronephrosis Chronic renal sufficiency Medically stable Plan: Follow-up 1 year /cas/ Sofi Mancera MD Staff Physician Signed: 08/10/2023 14:58 SOFI MANCERA [place] [facility]
--- OUTSIDE RECORDS SUMMARY | 2024-03-20 13:58 | XMS_ITS ---
Author Name [facility] [place] [facility] [place] Address [address] [place] [address] Care Team Providers Care Anthropology Department Chair Name Role Phone SOFI MANCERA Primary Care [...] [facility] CHARAN Haque Mar 13, 2015 [id number] KEVINVERONICA Haque RT PATIENT MEDICARE (WNR) MEDICARE (M) PART B Aug 12, 2007 PART B [id number] VERONICA BROWN RT PATIENT MEDICARE (WNR) MEDICARE (M) PART A Jan 12, 2004 PART A [id number] VERONICA BROWN RT PATIENT Selected Encounter This section includes the information on record at [place] for the Encounter. Date/Time Encounter Type Encounter Description Reason Pro vider Source July 19, 2023 08:43 AM Outpatient Encounter RENAL/NEPHROL(EXCEPT DIALYSIS) IHE Encounter Template Text not used by VA Plan of Treatment: Future Appointments (+ 6 months) and Future Tests (+/- 45 days) The Plan of Treatment section includes future [place] [facility] [place] [facility] This section includes future appointments and future orders which are active, pending or scheduled. Future Appointments This section includes appointments that were scheduled to occur 6 months from the date of the Encounter, up to a maximum of 20 appointments. The data comes from all [place] treatment facilities. Appointment Date/Time Appointment Type Appointme nt Facility Name August 02, 2023 02:30 PM AM[facility]ULATORY [facility]ICINE [facility] [place] [facility] August 08, 2023 02:00 PM AMBULATORY [facility] MEDICINE [facility] [place] [facility] Aug 23, 2023 10:30 AM AMBULATORY - REHAB MEDICIN E [facility] [place] [facility] Sep 01, 2023 11:30 AM AMBULATORY - MEDICINE [facility] [place] [facility] Sep 11, 2023 02:30 PM AMBULATORY - MEDICINE [facility] [place] [facility] Sep 15, 2023 10:30 AM AMBULATORY - MEDICINE [facility] [place] [facility] Oct 02, 2023 09:30 AM AMBULATORY - MEDICINE [facility] [place] [facility] Oct 04, 2023 10:00 AM AMBULATORY - MEDICINE [facility] [place] [facility] Oct 11, 2023 09:00 AM AMBULATORY - MEDICINE [facility] [place] [facility] Oct 18, 2023 10:00 AM AMBULATORY - MEDICINE [facility] [place] [facility] Oct 30, 2023 09:00 AM AMBULATORY - MEDICINE [facility] [place] [facility] Nov 06, 2023 01:00 PM AMBULATORY - MEDICINE [facility] [place] [facility] Nov 20, 2023 09:30 AM AMBULATORY - MEDICINE [facility] [place] [facility] Dec 18, 2023 09:30 AM AMBULATORY - MEDICINE [facility] [place] [facility] Dec 27, 2023 02:00 PM AMBULATORY - MEDICINE [facility] [place] [facility] Dec 29, 2023 01:30 PM AMBULATORY - MEDICINE [facility] [place] [facility] Jan 01, 2024 02:30 PM AMBULATORY - MEDICINE [facility] [place] [facility] Jan 08, 2024 03:30 PM AM[place]ULATORY [place]INE [place] [facility] [place] [facility] Social History: Smoking Status (Most current) and Tobacco Use (All prior to encounter date) This section includes the most current, and the historical, smoking and tobacco- related health factors from the [place] facility where the Encounter took place. Current Smoking Status This section includes the most current smoking, or tobacco-related health factor, from the [place] facility where the Encounter took place. Date/Time Current Smoking Status Comment Facil ity Apr 26, 2023 10:00 AM VA-TOBACCO FORMER USER [facility] [place] [facility] Tobacco Use History This section includes a history of the smoking, or tobacco-related health factors, that were collected on or before the date of the Encounter. The data comes from the [place] facility where the Encounter took place. Date/Time Smoking Status/Tobacco Use Comment F acshahbaz Apr 26, 2023 10:00 AM VA-TOBACCO QUIT 15 YRS OR MORE [facility] [place] [facility] Mar 30, 2022 11:00 AM VA-TOBACCO FORMER USER [facility] [place] [facility] Mar 30, 2022 11:00 AM VA-TOBACCO QUIT 15 YRS OR MORE [facility] [place] [facility] Mar 17, 2021 01:30 PM VA-TOBACCO FORMER USER [facility] [place] [facility] Mar 17, 2021 01:30 PM VA-TOBACCO NEVER USED [facility] [place] [facility] Mar 17, 2021 01:30 PM VA-TOBACCO QUIT 15 YRS OR MORE [facility] [place] [facility] Mar 31, 2020 10:30 AM VA-TOBACCO FORMER USER [facility] [place] [facility] Mar 31, 2020 10:30 AM VA-TOBACCO QUIT 15 YRS OR MORE [facility] [place] [facility] Nov 23, 2018 12:07 PM VA-TOBACCO FORMER USER [facility] [place] [facility] Nov 23, 2018 12:07 PM VA-TOBACCO QUIT 15 YRS OR MORE [facility] [place] [facility] Nov 22, 2017 10:02 AM VA-TOBACCO NEVER USED [facility] [place] [facility] Mar 14, 2017 09:31 AM [facility] [place] [facility] Mar 01, 2016 02:51 PM LIFETIME NON-TOBACCO USER [place] [facility] [place] [facility] Feb 10, 2015 09:31 AM QUIT TOBACCO USE > 7 YEARS AGO [facility] Encounter Notes: All associated encounter notes This section contains the clinical notes associated to the Encounter. 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
--- OUTSIDE RECORDS SUMMARY | 2024-03-20 13:58 | XMS_ITS ---
Author Name [facility] [place] Address [address] [place] [address] Care Team Providers Care Unload Associate Name Role Phone SOFI MANCERA Primary Care [...] Se[place] BCBS [place] MED[place] [facility]PP[facility] Александр Mar 13, 2015 [id number] VERONICA BROWN RT PATIENT MEDICARE (WNR) MEDICARE (M) PART B Aug 12, 2007 PART B [id number] VERONICA BROWN RT PATIENT MEDICARE (WNR) MEDICARE (M) PART A Jan 12, 2004 PART A [id number] VERONICA BROWN RT PATIENT Selected Encounter This section includes the information on record at [place] for the Encounter. Date/Time Encounter Type Encounter Description Reason Provider Source May 15, 2023 11:20 AM RPR&REFITG SPECT XCP APHAKIA OPTOMETRY ICD-10-CM Z46.0 Encounter for fit/adjst of spectacles and contact lenses FREDERICK ARGUETA [facility] Encounter Template Text not used by [place] Assessments - Encounter Diagnoses This section includes the primary and secondary diagnoses documented for the Encounter. Date/Time Primary/Secondary Diagnosis Diagnosis Name Provider Source May 15, 2023 11:41 AM PRIMARY Encounter for fit/adjst of spectacles and contact lenses FREDERICK ARGUETA [place] [facility] [place] [facility] Plan of Treatment: Future Appointments (+ 6 months) and Future Tests (+/- 45 days) The Plan of Treatment section includes future care activities for the patient from all [place] treatmentfacilities. This section includes future appointments and future orders which are active, pending or scheduled. Future Appointments This section includes appointments that were scheduled to occur 6 months from the date of the Encounter, up to a maximum of 20 appointments. The data comes from all [place] treatment facilities. Appointment Date/Time Appointment Type Appointme nt Facility Name May 29, 2023 11:00 AM AMBULATORY - MEDICINE [facility] [place] [facility] Jul 05, 2023 03:00 PM AMBULATORY - MEDICINE [facility] [place] [facility] Jul 06, 2023 10:30 AM AMBULATORY - MEDICINE [facility] [place] [facility] August 02, 2023 02:30 PM AMBULATORY - MEDICINE [facility] [place] [facility] August 08, 2023 02:00 PM AMBULATORY - MEDICINE [facility] [place] [facility] Aug 23, 2023 10:30 AM AMBULATORY - REHAB MEDICIN E [facility] [place] [facility] Sep 01, 2023 11:30 AM AMBULATORY - MEDICINE [facility] [place] [facility] Sep 11, 2023 02:30 PM AMBULATORY - MEDICINE [facility] [place] [facility] Sep 15, 2023 10:30 AM AMBULATORY - MEDICINE [facility] [place] [facility] Oct 02, 2023 09:30 AM AMBULATORY - MEDICINE [facility] [place] [facility] Oct 04, 2023 10:00 AM AMBULATORY - MEDICINE [facility] [place] [facility] Oct 11, 2023 09:00 AM AMBULATORY - MEDICINE [facility] [place] [facility] Oct 18, 2023 10:00 AM AMBULATORY - MEDICINE [place] [facility] [place] [facility] Oct 30, 2023 09:00 AM AMBULATORY - MEDICINE [place] [facility] [place] [facility] Nov 06, 2023 01:00 PM AMBULATORY - MEDICINE [place] [facility] [place] [facility] Lab Results: +/- 30 days of the encounter This section includes the Chemistry and Hematology Lab Results on record with [place] for the patient. Radiology Reports and Pathology Reports are provided separately, in subsequent sections. Lab Results This section contains the Chemistry/Hematology Results that were resulted 30 days before or 30 daysafter the date of the Encounter. Date/Time Source Result Type Result - Unit Interpretation Reference Range Comment Apr 26, 2023 11:12 AM [place] [facility] [place] [facility] PO4 Specimen Type: SERUM No comment entered. Ordering Provider: NEENA STEVENS Report Released Date/Time: Nov 01, 2022 09:00 PM Reporting Lab: [place] [facility] [place] [address] [address] Performing Lab: [place] [facility] [place] [facility] [address] [facility] [address] PO4 2.5 mg/dL 2.5-5.0 Apr 26, 2023 11:12 AM [facility] [place] [facility] PTH INTACT Specimen Type: SERUM No comment entered. Ordering Provider: NEENA STEVENS Report Released Date/Time: Nov 01, 2022 09:00 PM Reporting Lab: [place] [facility] [place] [facility] [address] [facility] [address] Performing Lab: [place] [facility] [place] [facility] [address] [facility] [address] PTH INTACT 118.5 pg/mL H 10-65 Apr 26, 2023 11:12 AM [facility] [place] [facility] URIC ACID Specimen Type: SERUM No comment entered. Ordering Provider: NEENA STEVENS Report Released Date/Time: Nov 01, 2022 09:00 PM Reporting Lab: [place] [facility] [place] [address] [address] Performing Lab: [place] [facility] [place] [address] [address] URIC ACID 3.1 mg/dL L 3.5-7.2 Apr 26, 2023 11:12 AM [facility] ALKALINE PHOSPHATASE Specimen Type: SERUM No comment entered. Ordering Provider: NEENA STEVENS Report Released Date/Time: Nov 01, 2022 09:00 PM Reporting Lab: [facility] [address] Performing Lab: [facility] [address] ALKALINE PHOSPHATASE 78 U/L 40-150 Apr 26, 2023 11:12 AM [facility] FERRITIN Specimen Type: SERUM No comment entered. Ordering Provider: NEENA STEVENS Report Released Date/Time: Nov 01, 2022 09:00 PM Reporting Lab: [address] [address] Performing Lab: [facility] [address] [address] FERRITIN 40 ng/mL 20-300 Apr 26, 2023 11:12 AM [facility] IRON & TIBC PANEL Specimen Type: SERUM No comment entered. Ordering Provider: NEENA STEVENS Report Released Date/Time: Nov 01, 2022 09:00 PM Reporting Lab: [address] [address] Performing Lab: [facility] [address] TIBC 341 ug/dL 204-475 IRON 69 ug/dL 40-160 Transferrin Saturation 20.3 20.0-50.0 Apr 26, 2023 11:12 AM [facility] MAGNESIUM Specimen Type: SERUM No comment entered. Ordering Provider: NEENA STEVENS Report Released Date/Time: Nov 01, 2022 09:00 PM Reporting Lab: [facility] [address] [address] Performing Lab: [facility] [address] [facility] [address] MAGNESIUM 2.0 mg/dL 1.6-2.6 Apr 26, 2023 11:12 AM [facility] CBC Specimen Type: BLOOD No comment entered. Ordering Provider: NEENA STEVENS Report Released Date/Time: Nov 01, 2022 09:00 PM Reporting Lab: [facility] [address] [facility] [address] Performing Lab: [facility] [address] [facility] [address] WBC 8.31 10*3/uL 4.50-11.00 RBC 4.42 10*6/uL 4.23-5.66 HGB 13.2 g/dL 12.8-17 HCT 41.3 39.2-50.4 MCV 93.4 fL 82-99 MCHC 32.0 g/dL 30.8-35.1 PLT 196 10*3/uL 140-360 RDW-CV 14.3 12.0-16.0 MCH 29.9 pg 26.2-32.6 Apr 26, 2023 11:12 AM [facility] CALCIUM Specimen Type: SERUM No comment entered. Ordering Provider: NEENA STEVENS Report Released Date/Time: Nov 01, 2022 09:00 PM Reporting Lab: [facility] [address] Performing Lab: [facility] [address] [address] CALCIUM 9.4 mg/dL 8.5-10.2 Apr 26, 2023 11:12 AM [facility] VITAMIN D (25-OH) Specimen Type: SERUM No comment entered. Ordering Provider: NEENA STEVENS Report Released Date/Time: Nov 01, 2022 09:00 PM Reporting Lab: [facility] [address] [address] Performing Lab: [facility] [address] VITAMIN D (25-OH) 36 ng/mL 20-50 Apr 26, 2023 11:12 AM [facility] HDL CHOLESTEROL Specimen Type: SERUM No comment entered. Ordering Provider: NEENA STEVENS Report Released Date/Time: Nov 01, 2022 09:00 PM Reporting Lab: [facility] [place] [facility] [address] [facility] [address] Performing Lab: [facility] [address] [facility] [address] HDL CHOLESTEROL 49 mg/dL 40-60 Apr 26, 2023 11:12 AM [facility]RL [facility] CHOLESTEROL Specimen Type: SERUM No comment entered. Ordering Provider: NEENA STEVENS Report Released Date/Time: Nov 01, 2022 09:00 PM Reporting Lab: [facility]N [facility] [address] [address] Performing Lab: [facility]N [facility] [address] [address] CHOLESTEROL 131 mg/dL Apr 26, 2023 11:12 AM [facility] MICROALBUMIN CREATININE RATIO PANEL Specimen Type: URINE No comment entered. Ordering Provider: NEENA STEVENS Report Released Date/Time: Nov 01, 2022 09:00 PM Reporting Lab: [facility]ITALRL TRN [facility] [address] [address] Performing Lab: [facility]ITAL[facility] SYSTEMTRN [facility]ITALUS[facility] [address] [address] MICROALBUMIN/C REATININE RATIO 129.2 mg/g H 0-29.9 MICROALBUMIN,Q UANTITATIVE 12.5 mg/dL RR UNAVAIL CREATININE URINE 96.73 mg/dL Apr 26, 2023 11:12 AM [facility] SYSTEMTRN [facility] BASIC METABOLIC PANEL (non-fasting) Specimen Type: SERUM No comment entered. Ordering Provider: NEENA STEVENS Report Released Date/Time: Nov 01, 2022 09:00 PM Reporting Lab: [facility] [place] [address] [address] Performing Lab: [facility] [place] [facility] [address] [facility] [address] UREA NITROGEN 23 mg/dL 7-25 GLUCOSE 136 [...] and tobacco- related health factors from the [place] facility where the Encounter took place. Current Smoking Status This section includes the most current smoking, or tobacco-related health factor, from the [place] facility where the Encounter took place. Date/Time Current Smoking Status Comment Facil ity Apr 26, 2023 10:00 AM VA-TOBACCO FORMER USER [place] [facility] [place] [facility] Tobacco Use History This section includes a history of the smoking, or tobacco-related health factors, that were collected on or before the date of the Encounter. The data comes from the [place] facility where the Encounter took place. Date/Time Smoking Status/Tobacco Use Comment F acshahbaz Apr 26, 2023 10:00 AM VA-TOBACCO QUIT 15 YRS OR MORE [facility] [place] [facility] Mar 30, 2022 11:00 AM VA-TOBACCO FORMER USER [place] [facility] [place] [facility] Mar 30, 2022 11:00 AM VA-TOBACCO QUIT 15 YRS OR MORE [facility] [place] [facility] Mar 17, 2021 01:30 PM VA-TOBACCO FORMER USER [place] [facility] [place] [facility] Mar 17, 2021 01:30 PM VA-TOBACCO NEVER USED [place] [facility] [place] [facility] Mar 17, 2021 01:30 PM VA-TOBACCO QUIT 15 YRS OR MORE [facility] [place] [facility] Mar 31, 2020 10:30 AM VA-TOBACCO FORMER USER [facility] [place] [facility] Mar 31, 2020 10:30 AM VA-TOBACCO QUIT 15 YRS OR MORE [facility] [place] [facility] Nov 23, 2018 12:07 PM VA-TOBACCO FORMER USER [place] [facility] [place] [facility] Nov 23, 2018 12:07 PM VA-TOBACCO QUIT 15 YRS OR MORE [place] [facility] [place] [facility] Nov 22, 2017 10:02 AM VA-TOBACCO NEVER USED [place] [facility] [place] [facility] Mar 14, 2017 09:31 AM LIFETIME NON-TOBACCO USER [place] [facility] [place] [facility] Mar 01, 2016 02:51 PM LIFETIME NON-TOBACCO USER [place] [facility] [place] [facility] Feb 10, 2015 09:31 AM QUIT TOBACCO USE > 7 YEARS AGO quit in 1964 [facility] Encounter Notes: All associated encounter notes This section contains the clinical notes associated to the Encounter. Date/Time Encounter Note(s) Provider Source May 15, 2023 11:41 AM OPTOMETRY NOTE: LOCAL TITLE: OPTOMETRY NOTE STANDARD TITLE: OPTOMETRY NOTE DATE OF NOTE: MAY 15, 2023@11:41 ENTRY DATE: MAY 15, 2023@11:41:19 AUTHOR: FREDERICK ARGUETA EXP COSIGNER: URGENCY: STATUS: COMPLETED OPT HT Fit and adjusted 1 pair of eyeglasses per patients request. /cas/ [facility] Signed: 05/15/2023 11:41 FREDERICK ARGUETA [facility]
--- OUTSIDE RECORDS SUMMARY | 2024-03-20 13:58 | XMS_ITS | Encounter Summary ---
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 Date/Time Encounter Type Encounter Description Reason Provider Source Jul 06, 2023 10:30 AM INFRARED THERAPY CIH TREATMENT ICD-10-CM M54.9 Dorsalgia, unspecified BRICE WALSH IHE Encounter Template Text not used by [facility] Assessments - Encounter Diagnoses This section includes the primary and secondary diagnoses documented for the Encounter. Date/Time Primary/Secondary Diagnosis Diagnosis Name Provider Source July 29, 2023 07:44 AM PRIMARY Dorsalgia, unspecified BRICE WALSH [place] [facility] [place] [facility] July 29, 2023 07:44 AM SECONDARY Pain in left knee BRICE WALSH [place] [facility] [place] [facility] Plan of Treatment: Future Appointments (+ 6 months) and Future Tests (+/- 45 days) The Plan of Treatment section includes future care activities for the patient from all [place] treatmentfacilities. This section includes future appointments and future orders which are active, pending or scheduled. Future Appointments This section includes appointments that were scheduled to occur 6 months from the date of the Encounter, up to a maximum of 20 appointments. The data comes from all [place] treatment facilities. Appointment Date/Time Appointment Type Appointme nt Facility Name August 02, 2023 02:30 PM AMBULATORY - MEDICINE [facility] [place] [facility] August 08, 2023 02:00 PM AMBULATORY - MEDICINE [facility] [place] [facility] Aug 23, 2023 10:30 AM AMBULATORY - REHAB MEDICIN E [facility] [place] [facility] Sep 01, 2023 11:30 AM AMBULATORY - MEDICINE [facility] [place] [facility] Sep 11, 2023 02:30 PM AMBULATORY - MEDICINE [facility] [place] [facility] Sep 15, 2023 10:30 AM AMBULATORY - MEDICINE [facility] [place] [facility] Oct 02, 2023 09:30 AM AMBULATORY - MEDICINE [facility] [place] [facility] Oct 04, 2023 10:00 AM AMBULATORY - MEDICINE [facility] [place] [facility] Oct 11, 2023 09:00 AM AMBULATORY - MEDICINE [facility] [place] [facility] Oct 18, 2023 10:00 AM AMBULATORY - MEDICINE [facility] [place] [facility] Oct 30, 2023 09:00 AM AMBULATORY - MEDICINE [facility] [place] [facility] Nov 06, 2023 01:00 PM AMBULATORY - MEDICINE [facility] [place] [facility] Nov 20, 2023 09:30 AM AMBULATORY - MEDICINE [facility] [place] [facility] Dec 18, 2023 09:30 AM AMBULATORY - MEDICINE [facility] [place] [facility] Dec 27, 2023 02:00 PM AMBULATORY - MEDICINE [facility] [place] [facility] Dec 29, 2023 01:30 PM AMBULATORY - MEDICINE [facility] [place] [facility] Jan 01, 2024 02:30 PM AMBULATORY - MEDICINE [place] [facility] [place] [facility] Social History: Smoking Status (Most current) and Tobacco Use (All prior to encounter date) This section includes the most current, and the historical, smoking and tobacco- related health factors from the [place] facility where the Encounter took place. Current Smoking Status This section includes the most current smoking, or tobacco-related health factor, from the [place] facility where the Encounter took place. Date/Time Current Smoking Status Comment Facil ity Apr 26, 2023 10:00 AM VA-TOBACCO FORMER USER [place] [facility] [place] [facility] Tobacco Use History This section includes a history of the smoking, or tobacco-related health factors, that were collected on or before the date of the Encounter. The data comes from the [place] facility where the Encounter took place. Date/Time Smoking Status/Tobacco Use Comment F acility Apr 26, 2023 10:00 AM VA-TOBACCO QUIT 15 YRS OR MORE [facility] [place] [facility] Mar 30, 2022 11:00 AM VA-TOBACCO FORMER USER [facility] [place] [facility] Mar 30, 2022 11:00 AM VA-TOBACCO QUIT 15 YRS OR MORE [facility] [place] [facility] Mar 17, 2021 01:30 PM VA-TOBACCO FORMER USER [place] [facility] [place] [facility] Mar 17, 2021 01:30 PM VA-TOBACCO NEVER USED [place] [facility] [place] [facility] Mar 17, 2021 01:30 PM VA-TOBACCO QUIT 15 YRS OR MORE [facility] [place] [facility] Mar 31, 2020 10:30 AM VA-TOBACCO FORMER USER [place] [facility] [place] [facility] Mar 31, 2020 10:30 AM VA-TOBACCO QUIT 15 YRS OR MORE [facility] [place] [facility] Nov 23, 2018 12:07 PM [facility] [place] [facility] Nov 23, 2018 12:07 PM VA-TOBACCO QUIT 15 YRS OR MORE [place] [facility] [place] [facility] Nov 22, 2017 10:02 AM VA-TOBACCO NEVER USED [place] [facility] [place] [facility] Mar 14, 2017 09:31 AM LIFETIME NON-TOBACCO USER [place] [facility] [place] [facility] Mar 01, 2016 02:51 PM LIFETIME NON-TOBACCO USER [place] [facility] [place] [facility] Feb 10, 2015 09:31 AM QUIT TOBACCO USE > 7 YEARS AGO quit in [facility] Encounter Notes: All associated encounter notes This section contains the clinical notes associated to the Encounter. Date/Time Encounter Note(s) Provider Source Jul 06, 2023 11:10 AM ACUPUNCTURE NOTE: LOCAL TITLE: ACUPUNCTURE TREATMENT STANDARD TITLE: ACUPUNCTURE NOTE DATE OF NOTE: JUL 06, 2023@11:10 ENTRY DATE: JUL 06, 2023@11:10:51 AUTHOR: DAE WALSH EXP COSIGNER: URGENCY: STATUS: COMPLETED JACQUELYN BROWN is a 83 WHITE MALE who presents with Back pain Active Problem Back pain M54.9, Onset 11/10/2020 SOFI MANCERA Benign Prostatic Hypertrophy Withou 11/23/2018 SOFI MANCERA Diabetes mellitus E13.9 02/10/2015 SOFI MANCERA Essential hypertension I10. 02/10/2015 SOFI MANCERA Age Macular Degeneration, Wet (Armd 05/12/2014 DALLIN AMSON Blurred vision (ICD-9-CM 368.8) 368 06/24/2011 DALLIN [...] MCALLISTER Arthritis 716.90 01/24/2007 RE MCALLISTER Date Jun CC / HPI - Soddy Daisy presents with Hx of chronic back pain that started during his service. Injured during a parachute jump and never reported injury. Pain was intermittent for many years but in the past 10 years has become constant and progressively worse. Soddy Daisy reports that walking any distance will induce [...] regular no problems. RESPONSE TO PREVIOUS TREATMENT. Soddy Daisy reports that his last visit was very successful and he had minimal low back pain until several days ago. Soddy Daisy states that he decided to vacuum out his car and bending and contorting his body to do so aggravated his low back. He states that for 2-1/2 days his pain was elevated 6-7/10. Today he reports he is doing a bit better and currently has bilateral low back pain that is 3/10. He also reports his left knee is a bit sore but he is doing well with that. OBJECTIVE General: . 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
--- OUTSIDE RECORDS SUMMARY | 2024-03-20 13:58 | XMS_ITS ---
Author Name [facility] [place] Organization [facility] [place] Address [address] [place] [address] Care Team Providers Care Loan Workout Officer Name Role Phone SOFI MANCERA Primary Care [...] Policy [place] JONELLE DIAZ [facility] Александр Mar 13, 2015 [id number] VERONICA BROWN RT PATIENT MEDICARE (WNR) MEDICARE (M) PART B Aug 12, 2007 PART B [id number] VERONICA BROWN RT PATIENT MEDICARE (WNR) MEDICARE (M) PART A Jan 12, 2004 PART A [id number] VERONICA BROWN RT PATIENT Selected Encounter This section includes the information on record at [place] for the Encounter. Date/Time Encounter Type Encounter Description Reason Provider Source May 29, 2023 11:00 AM INFRARED THERAPY CIH TREATMENT ICD-10-CM M54.9 Dorsalgia, unspecified BRICE WALSH IHE Encounter Template Text not used by [facility] Assessments - Encounter Diagnoses This section includes the primary and secondary diagnoses documented for the Encounter. Date/Time Primary/Secondary Diagnosis Diagnosis Name Provider Source Jun 21, 2023 06:05 AM PRIMARY Dorsalgia, unspecified BRICE WALSH [place] [facility] [place] [facility] Jun 21, 2023 06:05 AM SECONDARY Pain in thoracic spine BRICE WALSH [place] [facility] [place] [facility] Plan of Treatment: Future Appointments (+ 6 months) and Future Tests (+/- 45 days) The Plan of Treatment section includes future care activities for the patient from all [place] treatmentfacilities. This section includes future appointments and future orders which are active, pending or scheduled. Future Appointments This section includes appointments that were scheduled to occur 6 months from the date of the Encounter, up to a maximum of 20 appointments. The data comes from all [place] treatment facilities. Appointment Date/Time Appointment Type Appointme nt Facility Name Jul 05, 2023 03:00 PM AMBULATORY - MEDICINE [facility] [place] [facility] Jul 06, 2023 10:30 AM AMBULATORY - MEDICINE [facility] [place] [facility] August 02, 2023 02:30 PM AMBULATORY - MEDICINE [facility] [place] [facility] August 08, 2023 02:00 PM AMBULATORY - MEDICINE [facility] [place] [facility] Aug 23, 2023 10:30 AM AMBULATORY - REHAB MEDICIN E [facility] [place] [facility] Sep 01, 2023 11:30 AM AMBULATORY - MEDICINE [facility] [place] [facility] Sep 11, 2023 02:30 PM AMBULATORY - MEDICINE [facility] [place] [facility] Sep 15, 2023 10:30 AM AMBULATORY - MEDICINE [facility] [place] [facility] Oct 02, 2023 09:30 AM AMBULATORY - MEDICINE [facility] [place] [facility] Oct 04, 2023 10:00 AM AMBULATORY - MEDICINE [facility] [place] [facility] Oct 11, 2023 09:00 AM AMBULATORY - MEDICINE [facility] [place] [facility] Oct 18, 2023 10:00 AM AMBULATORY - MEDICINE [place] [facility] [place] [facility] Oct 30, 2023 09:00 AM AMBULATORY - MEDICINE [place] [facility] [place] [facility] Nov 06, 2023 01:00 PM AMBULATORY - MEDICINE [place] [facility] [place] [facility] Nov 20, 2023 09:30 AM AMBULATORY - MEDICINE [place] [facility] [place] [facility] Social History: Smoking Status (Most current) and Tobacco Use (All prior to encounter date) This section includes the most current, and the historical, smoking and tobacco- related health factors from the [place] facility where the Encounter took place. Current Smoking Status This section includes the most current smoking, or tobacco-related health factor, from the [place] facility where the Encounter took place. Date/Time Current Smoking Status Comment Facil ity Apr 26, 2023 10:00 AM VA-TOBACCO FORMER USER [place] [facility] [place] [facility] Tobacco Use History This section includes a history of the smoking, or tobacco-related health factors, that were collected on or before the date of the Encounter. The data comes from the [place] facility where the Encounter took place. Date/Time Smoking Status/Tobacco Use Comment F acility Apr 26, 2023 10:00 AM VA-TOBACCO QUIT 15 YRS OR MORE [facility] [place] [facility] Mar 30, 2022 11:00 AM VA-TOBACCO FORMER USER VA [facility] [place] [facility] Mar 30, 2022 11:00 AM VA-TOBACCO QUIT 15 YRS OR MORE [facility] [place] [facility] Mar 17, 2021 01:30 PM VA-TOBACCO FORMER USER VA [facility] [place] [facility] Mar 17, 2021 01:30 PM VA-TOBACCO NEVER USED VA [facility] [place] [facility] Mar 17, 2021 01:30 PM VA-TOBACCO QUIT 15 YRS OR MORE [facility] [place] [facility] Mar 31, 2020 10:30 AM VA-TOBACCO FORMER USER VA [facility] [place] [facility] Mar 31, 2020 10:30 AM VA-TOBACCO QUIT 15 YRS OR MORE [facility] [place] [facility] Nov 23, 2018 12:07 PM VA-TOBACCO FORMER USER VA [facility] [place] [facility] Nov 23, 2018 12:07 PM VA-TOBACCO QUIT 15 YRS OR MORE [facility] [place] [facility] Nov 22, 2017 10:02 AM VA-TOBACCO NEVER USED [facility] [place] [facility] Mar 14, 2017 09:31 AM LIFETIME NON-TOBACCO USER [place] [facility]TR [facility] [place] [facility] Mar 01, 2016 02:51 PM LIFETIME NON-TOBACCO USER [place] [facility] [place] [facility] Feb 10, 2015 09:31 AM QUIT TOBACCO USE > 7 YEARS AGO quit in 1964 [facility] Encounter Notes: All associated encounter notes This section contains the clinical notes associated to the Encounter. Date/Time Encounter Note(s) Provider Source May 29, 2023 11:42 AM ACUPUNCTURE NOTE: LOCAL TITLE: ACUPUNCTURE TREATMENT STANDARD TITLE: ACUPUNCTURE NOTE DATE OF NOTE: MAY 29, 2023@11:42 ENTRY DATE: MAY 29, 2023@11:42:13 AUTHOR: DAE WALSH EXP COSIGNER: URGENCY: STATUS: [...] MCALLISTER Arthritis 716.90 01/24/2007 RE MCALLISTER Date May CC / HPI - [place] presents with Hx of chronic back pain [...] regular no problems. RESPONSE TO PREVIOUS TREATMENT. [place] reports that his BFA treatment on April 24 eliminated his chronic back pain for several weeks. He reports that his pain was minimal at worst and would vary from day-to-day but overall his back pain is much better. had ASP needles retain for 3 days and [place] reports that after the first day his pain was near 0. Pain did not increase once needles were removed. OBJECTIVE General: . Patient in no apparent [...] ]Pyonex Needle: remove prior to bathing per master tax advisor INFORMED CONSENT: Oral Consent obtained on May The patient was positioned comfortably. Oral consent [...] is required /cas/ DAE WALSH LA.C DIPL.AC ALL ROUND BUTCHER Signed: 05/29/2023 15:00 DAE WALSH CN[facility]L [facility]
--- OUTSIDE RECORDS SUMMARY | 2024-03-20 13:58 | XMS_ITS ---
Author Name [facility] [place] [facility] [place] [facility] [place] Address [address] [place] [address] Care Team Providers Care After School Program Director Name Role Phone SOFI MANCERA Primary [...] [place] [employer] CHARAN Haque Mar 13, 2015 [id number] VERONICA BROWN RT PATIENT MEDICARE (WNR) MEDICARE (M) PART B Aug 12, 2007 PART B [id number] VERONICA BROWN RT PATIENT MEDICARE (WNR) MEDICARE (M) PART A Jan 12, 2004 PART A [id number] VERONICA BROWN RT PATIENT Selected Encounter This section includes the information on record at [place] for the Encounter. Date/Time Encounter Type Encounter Description Reason Provider Source August 02, 2023 02:30 PM ACUPUNCT W/O STIMUL ADDL 15M CIH TREATMENT ICD-10-CM M54.50 Low back pain, unspecified GAUNYA,BRICE PHER M IHE Encounter Template Text not used by [place] Assessments - Encounter Diagnoses This section includes the primary and secondary diagnoses documented for the Encounter. Date/Time Primary/Secondary Diagnosis Diagnosis Name Provider Source Aug 23, 2023 02:57 PM PRIMARY Low back pain, unspecified BRICE WALSH [place] [facility] [place] [facility] Plan of Treatment: Future Appointments (+ 6 months) and Future Tests (+/- 45 days) The Plan of Treatment section includes future care activities for the patient from all [place] treatmentfacilities. This section includes future appointments and future orders which are active, pending or scheduled. Future Appointments This section includes appointments that were scheduled to occur 6 months from the date of the Encounter, up to a maximum of 20 appointments. The data comes from all [place] treatment facilities. Appointment Date/Time Appointment Type Appointme nt Facility Name August 08, 2023 02:00 PM AMBULATORY - MEDICINE [facility] [place] [facility] Aug 23, 2023 10:30 AM AMBULATORY - REHAB MEDICIN E [facility] [place] [facility] Sep 01, 2023 11:30 AM AMBULATORY - MEDICINE [facility] [place] [facility] Sep 11, 2023 02:30 PM AMBULATORY - MEDICINE [facility] [place] [facility] Sep 15, 2023 10:30 AM AMBULATORY - MEDICINE [facility] [place] [facility] Oct 02, 2023 09:30 AM AMBULATORY - MEDICINE [facility] [place] [facility] Oct 04, 2023 10:00 AM AMBULATORY - MEDICINE [facility] [place] [facility] Oct 11, 2023 09:00 AM AMBULATORY - MEDICINE [facility] [place] [facility] Oct 18, 2023 10:00 AM AMBULATORY - MEDICINE [facility] [place] [facility] Oct 30, 2023 09:00 AM AMBULATORY - MEDICINE [facility] [place] [facility] Nov 06, 2023 01:00 PM AMBULATORY - MEDICINE VA [facility] [place] [facility] Nov 20, 2023 09:30 AM AMBULATORY - MEDICINE [facility] [place] [facility] Dec 18, 2023 09:30 AM AMBULATORY - MEDICINE VA [facility] [place] [facility] Dec 27, 2023 02:00 PM AMBULATORY - MEDICINE [place] [facility] [place] [facility] Dec 29, 2023 01:30 PM AMBULATORY - MEDICINE [place] [facility] [place] [facility] Jan 01, 2024 02:30 PM AMBULATORY - MEDICINE [place] [facility] [place] [facility] Jan 08, 2024 03:30 PM AMBULATORY - MEDICINE [place] [facility] [place] [facility] Jan 29, 2024 10:30 AM AMBULATORY - MEDICINE [place] [facility] [place] [facility] Jan 30, 2024 03:30 PM AMBULATORY - MEDICINE [place] [facility] [place] [facility] 2024 02:30 PM [facility]UL[facility] Lab Results: +/- 30 days of the encounter This section includes the Chemistry and Hematology Lab Results on record with [place] for the patient. Radiology Reports and Pathology Reports are provided separately, in subsequent sections. Lab Results This section contains the Chemistry/Hematology Results that were resulted 30 days before or 30 daysafter the date of the Encounter. Date/Time Source Result Type Result - Unit Interpretation Reference Range Comment Aug 23, 2023 11:19 AM [facility] BASIC METABOLIC PANEL (fasting) Specimen Type: SERUM No comment entered. Ordering Provider: SOFI MANCERA Report Released Date/Time: Aug 20, 2023 07:51 PM Reporting Lab: [address] [address] Performing Lab: [address] [address] UREA NITROGEN 26 mg/dL H 7-25 GLUCOSE 120 mg/dL H 65-100 SODIUM 142 mmol/L 135-145 POTASSIUM 5.0 mmol/L 3.5-5.0 CHLORIDE 112 mmol/L H 100-110 CO2 25 meq/L 20-30 CREATININE, Serum 1.90 mg/dL H 0.50-1.40 eGFR(CKD-EPI 2020) 34 mL/min L >60 Aug 23, 2023 11:19 AM [facility] LIPID PANEL FASTING Specimen Type: SERUM No comment entered. Ordering Provider: SOFI MANCERA Report Released Date/Time: Aug 20, 2023 07:51 PM Reporting Lab: [facility] [address] [facility] [address] Performing Lab: [address] [address] CHOLESTEROL 130 mg/dL TRIGLYCERIDE 120 mg/dL 0-150 LDL calculated 54 mg/dL 0-129 CHOL/HDL 2.5 HDL CHOLESTEROL 52 mg/dL 40-60 Aug 23, 2023 11:19 AM [facility] TSH Specimen Type: SERUM No comment entered. Ordering Provider: SOFI MANCERA Report Released Date/Time: Aug 20, 2023 07:51 PM Reporting Lab: [facility] [address] [facility] [address] Performing Lab: [address] [address] TSH 1.38 u[IU]/mL 0.35-5.00 Aug 23, 2023 11:19 AM [facility] LIVER FUNCTION Specimen Type: SERUM No comment entered. Ordering Provider: SOFI MANCERA Report Released Date/Time: Aug 20, 2023 07:51 PM Reporting Lab: [facility] [address] [facility] [address] Performing Lab: [address] [address] PROTEIN,TOTAL 6.3 g/dL 6.0-8.3 ALBUMIN 3.6 g/dL 3.5-5.0 ALKALINE PHOSPHATASE 66 U/L 40-150 AST 14 U/L 5-34 ALT 14 U/L BILIRUBIN, TOTAL 0.6 mg/dL 0.2-1.2 Aug 23, 2023 11:19 AM [facility] HEMOGLOBIN A1C PANEL Specimen Type: BLOOD [...] Aug 20, 2023 07:51 PM Reporting Lab: [facility] [address] [facility] [address] Performing Lab: [address] [address] HEMOGLOBIN A1C 6.3 H 4.0-5.6 Aug 23, 2023 11:19 AM [facility] CBC AND DIFF (AUTO) Specimen Type: BLOOD No comment entered. Ordering Provider: SOFI MANCERA Report Released Date/Time: Aug 20, 2023 07:51 PM Reporting Lab: [address] [address] Performing Lab: [address] [address] WBC 7.43 10*3/uL 4.50-11.00 RBC 4.21 10*6/uL L 4.23-5.66 HGB 13.6 g/dL 12.8-17 HCT 40.0 39.2-50.4 MCV 95.0 fL 82-99 MCHC 34.0 g/dL 30.8-35.1 PLT 165 10*3/uL 140-360 RDW-CV 14.3 12.0-16.0 [place], Abs 0.72 10*3/uL 0.30-1.10 MCH 32.3 pg [...] 10*3/uL 0.00-0.06 Aug 23, 2023 11:19 AM [facility] URIC ACID Specimen Type: SERUM No comment entered. Ordering Provider: SOFI MANCERA Report Released Date/Time: Aug 20, 2023 07:51 PM Reporting Lab: [facility] [address] [facility] [address] Performing Lab: [address] [address] URIC ACID 3.0 mg/dL L 3.5-7.2 Aug 23, 2023 11:19 AM [facility] MICROALBUMIN CREATININE RATIO PANEL Specimen Type: URINE No comment entered. Ordering Provider: SOFI MANCERA Report Released Date/Time: Aug 20, 2023 07:51 PM Reporting Lab: [facility] [address] [facility] [address] Performing Lab: [address] [address] MICROALBUMIN/C REATININE RATIO canc mg/g 0-29.9 MICROALBUMIN,Q UANTITATIVE < 0.5 mg/dL RR UNAVAIL CREATININE URINE 108.02 mg/dL Aug 23, 2023 11:19 AM [facility] URINALYSIS CLEAN CATCH Specimen Type: URINE Comment: If Glucose = >500 and Ketones are positive, please alert the Physician. Ordering Provider: SOFI MANCERA Report Released Date/Time: Aug 20, 2023 07:51 PM Reporting Lab: [address] [address] Performing Lab: [address] [address] UA COLOR Light-Yellow Yellow UA APPEARANCE Clear [...] and tobacco- related health factors from the [place] facility where the Encounter took place. Current Smoking Status This section includes the most current smoking, or tobacco-related health factor, from the [place] facility where the Encounter took place. Date/Time Current Smoking Status Comment María Elena ity Apr 26, 2023 10:00 AM VA-TOBACCO FORMER USER VA [facility] [place] [facility] Tobacco Use History This section includes a history of the smoking, or tobacco-related health factors, that were collected on or before the date of the Encounter. The data comes from the [place] facility where the Encounter took place. Date/Time Smoking Status/Tobacco Use Comment Gamaliel [email or web address] Apr 26, 2023 10:00 AM VA-TOBACCO QUIT 15 YRS OR MORE [facility] [place] [facility] Mar 30, 2022 11:00 AM VA-TOBACCO FORMER USER [facility] [place] [facility] Mar 30, 2022 11:00 AM VA-TOBACCO QUIT 15 YRS OR MORE [facility] [place] [facility] Mar 17, 2021 01:30 PM VA-TOBACCO FORMER USER [facility] [place] [facility] Mar 17, 2021 01:30 PM VA-TOBACCO NEVER USED VA [facility] [place] [facility] Mar 17, 2021 01:30 PM VA-TOBACCO QUIT 15 YRS OR MORE [facility] [place] [facility] Mar 31, 2020 10:30 AM VA-TOBACCO FORMER USER [facility] [place] [facility] Mar 31, 2020 10:30 AM VA-TOBACCO QUIT 15 YRS OR MORE [facility] [place] [facility] Nov 23, 2018 12:07 PM VA-TOBACCO FORMER USER [facility] [place] [facility] Nov 23, 2018 12:07 PM VA-TOBACCO QUIT 15 YRS OR MORE [facility] [place] [facility] Nov 22, 2017 10:02 AM VA-TOBACCO NEVER USED VA [facility] [place] [facility] Mar 14, 2017 09:31 AM LIFETIME NON-TOBACCO USER [facility] [place] [facility] Mar 01, 2016 02:51 PM LIFETIME NON-TOBACCO USER [facility] [place] [facility] Feb 10, 2015 09:31 AM QUIT TOBACCO USE > 7 YEARS AGO quit in 1964 [facility] Encounter Notes: All associated encounter notes This section contains the clinical notes associated to the Encounter. Date/Time Encounter Note(s) Provider Source August 02, 2023 03:31 PM ACUPUNCTURE NOTE: LOCAL TITLE: ACUPUNCTURE TREATMENT STANDARD TITLE: ACUPUNCTURE NOTE DATE OF NOTE: AUGUST 02, 2023@15:31 ENTRY DATE: AUGUST 02, 2023@15:32:01 AUTHOR: DAE WALSH EXP COSIGNER: URGENCY: STATUS: COMPLETED KEVINJACQUELYN Haque is a 83 WHITE MALE who presents [...] MCALLISTER Arthritis 716.90 01/24/2007 RE MCALLISTER Date July CC / HPI - presents with Hx of chronic back pain that started during his service. Injured during a parachute jump and never reported injury. Pain was intermittent for many years but in the past 10 years has become constant and progressively worse. [place] reports that walking any distance will induce [...] regular no problems. RESPONSE TO PREVIOUS TREATMENT. [place] reports he had several weeks of good relief since his last acupuncture visit. [place] states he had increasing pain only in the past week. Pain is focused right side low back with no radiation into hip or leg. states the pain is a 4-5/10. Left knee pain is fully resolved since last visit. OBJECTIVE General: . 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 Oral consent [...] [ ]Torso: [ ]Hip / Glute Area: [X] LUE: LK, DB, ZB, SI 4, LI 10 [X] RUE: Raegan 5, Raegan 5.5, Raegan 6 [X] LLE: KD 3, KD 4, KD 5 [X] RLE: UB 65, GB 41, GB 40, GB 34 Set 2 TIME SPENT: 15 Minutes Position:[ ]Prone [ ]Supine [ ]Left Side [ ]Right Side [ ]Seated Chair [ ] Massage Chair Points used: [X]Ear:[ ]Left [ ]Right [X]Bilateral [ ]BFA Protocol, [ ]NADA Protocol, [X]Ear Other:Cingulate Gyrus, Thalmic nuclei. [ ]Head: [ ]Neck: [ ]Torso: [ [...] is required /cas/ DAE WALSH LA.C DIPL.AC CASH ACCOUNTANT Signed: 08/02/2023 15:36 DAE WALSH [facility]
--- OUTSIDE RECORDS SUMMARY | 2024-03-20 13:58 | XMS_ITS | Encounter Summary ---
Author Name [facility] [place] [facility] [place] Organization [facility] [place] Address [address] [place] [address] Care Team Providers Care Radiology Therapist Name Role Phone SOFI MANCERA Primary Care [...] [place] MEDIC[place] JONELLE Haque Mar 13, 2015 [id number] VERONICA BROWN RT PATIENT MEDICARE (WNR) MEDICARE (M) PART B Aug 12, 2007 PART B [id number] VERONICA BROWN RT PATIENT MEDICARE (WNR) MEDICARE (M) PART A Jan 12, 2004 PART A [id number] VERONICA BROWN RT PATIENT Selected Encounter This section includes the information on record at [place] for the Encounter. Date/Time Encounter Type Encounter Description Reason Pro vider Source Jun 14, 2023 09:19 AM Outpatient Encounter CI TREATMENT IHE Encounter Template Text not used by VA Plan of Treatment: Future Appointments (+ 6 months) and Future Tests (+/- 45 days) The Plan of Treatment section includes future care activities for the patient from all [place] [facility]. This section includes future appointments and future orders which are active, pending or scheduled. Future Appointments This section includes appointments that were scheduled to occur 6 months from the date of the Encounter, up to a maximum of 20 appointments. The data comes from all [place] treatment facilities. Appointment Date/Time Appointment Type Appointme nt Facility Name Jul 05, 2023 03:00 PM AMBULATORY [facility] MEDICINE [facility] [place] [facility] Jul 06, 2023 10:30 AM AMBULATORY - MEDICINE [facility] [place] [facility] August 02, 2023 02:30 PM AMBULATORY - MEDICINE [facility] [place] [facility] August 08, 2023 02:00 PM AMBULATORY - MEDICINE [facility] [place] [facility] Aug 23, 2023 10:30 AM AMBULATORY - REHAB MEDICIN E [facility] [place] [facility] Sep 01, 2023 11:30 AM AMBULATORY - MEDICINE [facility] [place] [facility] Sep 11, 2023 02:30 PM AMBULATORY - MEDICINE [facility] [place] [facility] Sep 15, 2023 10:30 AM AMBULATORY - MEDICINE [facility] [place] [facility] Oct 02, 2023 09:30 AM AMBULATORY - MEDICINE [facility] [place] [facility] Oct 04, 2023 10:00 AM AMBULATORY - MEDICINE [facility] [place] [facility] Oct 11, 2023 09:00 AM AMBULATORY - MEDICINE [facility] [place] [facility] Oct 18, 2023 10:00 AM AMBULATORY - MEDICINE [facility] [place] [facility] Oct 30, 2023 09:00 AM AMBULATORY - MEDICINE [facility] [place] [facility] Nov 06, 2023 01:00 PM AMBULATORY - MEDICINE [facility] [place] [facility] Nov 20, 2023 09:30 AM AMBULATORY - MEDICINE [facility] [place] [facility] Social History: Smoking Status (Most current) and Tobacco Use (All prior to encounter date) This section includes the most current, and the historical, smoking and tobacco- related health factors from the [place] facility where the Encounter took place. Current Smoking Status This section includes the most current smoking, or tobacco-related health factor, from the [place] facility where the Encounter took place. Date/Time Current Smoking Status Comment María Elena itraymond Apr 26, 2023 10:00 AM VA-TOBACCO FORMER USER [place] [facility] [place] [facility] Tobacco Use History This section includes a history of the smoking, or tobacco-related health factors, that were collected on or before the date of the Encounter. The data comes from the [place] facility where the Encounter took place. Date/Time Smoking Status/Tobacco Use Comment Gamaliel landin Apr 26, 2023 10:00 AM VA-TOBACCO QUIT 15 YRS OR MORE [facility] [place] [facility] Mar 30, 2022 11:00 AM VA-TOBACCO FORMER USER [facility] [place] [facility] Mar 30, 2022 11:00 AM VA-TOBACCO QUIT 15 YRS OR MORE [facility] [place] [facility] Mar 17, 2021 01:30 PM VA-TOBACCO FORMER USER [facility] [place] [facility] Mar 17, 2021 01:30 PM VA-TOBACCO NEVER USED [facility] [place] [facility] Mar 17, 2021 01:30 PM VA-TOBACCO QUIT 15 YRS OR MORE [facility] [place] [facility] Mar 31, 2020 10:30 AM VA-TOBACCO FORMER USER [facility] [place] [facility] Mar 31, 2020 10:30 AM VA-TOBACCO QUIT 15 YRS OR MORE [place] [facility] [place] [facility] Nov 23, 2018 12:07 PM VA-TOBACCO FORMER USER [facility] [place] [facility] Nov 23, 2018 12:07 PM VA-TOBACCO QUIT 15 YRS OR MORE [facility] [place] [facility] Nov 22, 2017 10:02 AM VA-TOBACCO NEVER USED [facility] [place] [facility] Mar 14, 2017 09:31 AM LIFETIME NON-TOBACCO USER [facility] [place] [facility] Mar 01, 2016 02:51 PM LIFETIME NON-TOBACCO USER [facility] [place] [facility] Feb 10, 2015 09:31 AM QUIT TOBACCO USE > 7 YEARS AGO quit in 1964 [place] [facility] [place] [facility] Encounter Notes: All associated encounter notes This section contains the clinical notes associated to the Encounter. Date/Time Encounter Note(s) Provider Source Jun 14, 2023 09:19 AM ADMINISTRATIVE NOTE: LOCAL TITLE: ADMINISTRATIVE RECALL NOTE STANDARD TITLE: ADMINISTRATIVE NOTE DATE OF NOTE: JUN 14, 2023@09:19 ENTRY DATE: JUN 14, 2023@09:19:04 AUTHOR: JUSTIN MENDOZA COSIGNER: URGENCY: STATUS: COMPLETED RTC orders: Unable to contact patient: Attempts to contact: 1st attempt:Left voicemail 2nd attempt: CXC Letter mailed Disposition on Jun 3rd attempt: 4th attempt: PID 08/31/2023 /es/ JUSTIN MENDOZA Signed: 06/14/2023 09:20 JUSTIN MENDOZA [facility]
--- OUTSIDE RECORDS SUMMARY | 2024-03-20 13:58 | XMS_ITS | Encounter Summary ---
Author Name [facility] [place] Organization [place] Address [address] [place] [address] Care Team Providers Care Stripper Soft Plastic Name Role Phone SOFI MANCERA Primary Care [...] [place] [employer] CHARAN Fountain Mar 13, 2015 [id number] VERONICA BROWN RT PATIENT MEDICARE (WNR) MEDICARE (M) PART B Aug 12, 2007 PART B [id number] VERONICA BROWN RT PATIENT MEDICARE (WNR) MEDICARE (M) PART A Jan 12, 2004 PART A [id number] VERONICA BROWN RT PATIENT Selected Encounter This section includes the information on record at [place] for the Encounter. Date/Time Encounter Type Encounter Description Reason Provider Source Jul 05, 2023 03:00 PM TRIM NAIL(S) PODIATRY ICD-10-CM E11.9 Type 2 diabetes mellitus without complications TYRON GALLOWAY Encounter Template Text not used by VA Assessments - Encounter Diagnoses This section includes the primary and secondary diagnoses documented for the Encounter. Date/Time Primary/Secondary Diagnosis Diagnosis Name Provider Source August 02, 2023 02:41 PM PRIMARY Type 2 diabetes mellitus without complications TYRON GALLOWAY [place] [facility] [place] [facility] August 02, 2023 02:41 PM SECONDARY Ingrowing nail TYRON GALLOWAY [place] [facility] [place] [facility] August 02, 2023 02:41 PM SECONDARY Nail dystrophy TYRON GALLOWAY [place] [facility] [place] [facility] Plan of Treatment: Future Appointments (+ 6 months) and Future Tests (+/- 45 days) The Plan of Treatment section includes future care activities for the patient from [facility] [place] [facility] This section includes future appointments and future orders which are active, pending or scheduled. Future Appointments This section includes appointments that were scheduled to occur 6 months from the date of the Encounter, up to a maximum of 20 appointments. The data comes from all [place] treatment facilities. Appointment Date/Time Appointment Type Appointme nt Facility Name Jul 06, 2023 10:30 AM AMBULATORY - MEDICINE [place] [facility] [place] [facility] August 02, 2023 02:30 PM AMBULATORY - MEDICINE [place] [facility] [place] [facility] August 08, 2023 02:00 PM AMBULATORY - MEDICINE [place] [facility] [place] [facility] Aug 23, 2023 10:30 AM AMBULATORY - REHAB MEDICIN E [facility] [place] [facility] Sep 01, 2023 11:30 AM AMBULATORY - MEDICINE [facility] [place] [facility] Sep 11, 2023 02:30 PM AMBULATORY - MEDICINE [place] [facility] [place] [facility] Sep 15, 2023 10:30 AM AMBULATORY - MEDICINE [place] [facility] [place] [facility] Oct 02, 2023 09:30 AM AMBULATORY - MEDICINE [facility] [place] [facility] Oct 04, 2023 10:00 AM AMBULATORY - MEDICINE [place] [facility] [place] [facility] Oct 11, 2023 09:00 AM AMBULATORY - MEDICINE [place] [facility] [place] [facility] Oct 18, 2023 10:00 AM AMBULATORY - MEDICINE [place] [facility] [place] [facility] Oct 30, 2023 09:00 AM AMBULATORY - MEDICINE [facility] [place] [facility] Nov 06, 2023 01:00 PM AMBULATORY - MEDICINE [facility] [place] [facility] Nov 20, 2023 09:30 AM AMBULATORY - MEDICINE [facility] [place] [facility] Dec 18, 2023 09:30 AM AMBULATORY - MEDICINE [facility] [place] [facility] Dec 27, 2023 02:00 PM AMBULATORY - MEDICINE [facility] [place] [facility] Dec 29, 2023 01:30 PM AMBULATORY - MEDICINE [facility] [place] [facility] Jan 01, 2024 02:30 PM AMBULATORY - MEDICINE [place] [facility] [place] [facility] Social History: Smoking Status (Most current) and Tobacco Use (All prior to encounter date) This section includes the most current, and the historical, smoking and tobacco- related health factors from the [place] facility where the Encounter took place. Current Smoking Status This section includes the most current smoking, or tobacco-related health factor, from the [place] facility where the Encounter took place. Date/Time Current Smoking Status Comment Facil ity Apr 26, 2023 10:00 AM VA-TOBACCO FORMER USER [place] [facility] [place] [facility] Tobacco Use History This section includes a history of the smoking, or tobacco-related health factors, that were collected on or before the date of the Encounter. The data comes from the [place] facility where the Encounter took place. Date/Time Smoking Status/Tobacco Use Comment F acility Apr 26, 2023 10:00 AM VA-TOBACCO QUIT 15 YRS OR MORE [facility] [place] [facility] Mar 30, 2022 11:00 AM VA-TOBACCO FORMER USER [facility] [place] [facility] Mar 30, 2022 11:00 AM VA-TOBACCO QUIT 15 YRS OR MORE [facility] [place] [facility] Mar 17, 2021 01:30 PM VA-TOBACCO FORMER USER [facility] [place] [facility] Mar 17, 2021 01:30 PM VA-TOBACCO NEVER USED [facility] [place] [facility] Mar 17, 2021 01:30 PM VA-TOBACCO QUIT 15 YRS OR MORE [facility] [place] [facility] Mar 31, 2020 10:30 AM VA-TOBACCO FORMER USER [place] [facility] [place] [facility] Mar 31, 2020 10:30 AM VA-TOBACCO QUIT 15 YRS OR MORE [facility] [place] [facility] Nov 23, 2018 12:07 PM VA-TOBACCO FORMER USER [facility] [place] [facility] Nov 23, 2018 12:07 PM VA-TOBACCO QUIT 15 YRS OR MORE [place] [facility] [place] [facility] Nov 22, 2017 10:02 AM VA-TOBACCO NEVER USED NE [facility] [place] [facility] Mar 14, 2017 09:31 AM LIFETIME NON-TOBACCO USER [place] [facility] [place] [facility] Mar 01, 2016 02:51 PM LIFETIME NON-TOBACCO USER [place] [facility] [place] [facility] Feb 10, 2015 09:31 AM QUIT TOBACCO USE > 7 YEARS AGO quit in 1964 [place] [facility] [place] [facility] Encounter Notes: All associated encounter notes This section contains the clinical notes associated to the Encounter. Date/Time Encounter Note(s) Provider Source Jul 05, 2023 03:29 PM PREVENTIVE MEDICIN E NURSING NOTE: LOCAL TITLE: CLINICAL REMINDERS/NURSING STANDARD TITLE: PREVENTIVE MEDICINE NURSING NOTE DATE OF NOTE: JUL 05, 2023@15:29 ENTRY DATE: JUL 05, 2023@15:29:25 AUTHOR: TYRON GALLOWAY EXP COSIGNER: URGENCY: STATUS: COMPLETED Suicide Screen: C-SSRS Screening [place] Suicide Severity Rating Scale (C-SSRS) screener 1. Over the past month, have you wished you were or wished you could go to sleep and not wake up? No 2. Over the past month, have you had any actual thoughts of killing yourself? No 3. Over the past month, have you been thinking about how you might do this? Response not required due to responses to other questions. 4. Over the past month, have you had these thoughts and had some intention of acting on them? Response not required due to responses to other questions. 5. Over the past month, have you started to work out or worked out the details of how to kill yourself? Response not required due to responses to other questions. 6. If yes, at any time in the past month did you intend to carry out this plan? Response not required due to responses to other questions. 7. In your lifetime, have you ever done anything, started to do anything, or prepared to do anything to end your life (for example, collected pills, obtained a gun, gave away valuables, went to the roof but didn't jump)? No 8. If YES, was this within the past 3 months? Response not required due to responses to other questions. /cas/ TYRON GALLOWAY LPN LICENSED PRACTICAL NURSE Signed: 07/05/2023 15:30 TYRON GALLOWAY [facility] Jul 05, 2023 03:24 PM NURSING OUTPATIENT NOTE: LOCAL TITLE: NURSING/SPECIALTY CLINIC NOTE STANDARD TITLE: NURSING OUTPATIENT NOTE DATE OF NOTE: JUL 05, 2023@15:24 ENTRY DATE: JUL 05, 2023@15:24:40 AUTHOR: TYRON GALLOWAY EXP COSIGNER: URGENCY: STATUS: COMPLETED [place] [facility] care. has a history of Diabetes and is unable to trim his/her own nails. Ambulates: [X]self [ ]wheelchair can transfer [ ]wheelchair cannot transfer [x ]without assistance [ ]with assistance of Bilateral: Pedal pulses: Right Foot: Dorsalis Pedis - palpable [x ] non-palpable[ ] Posterior Tibial - palpable[x ] non-palpable[ ] Left Foot: Dorsalis Pedis - palpable [x ] non-palpable [ ] Posterior Tibial - palpable [x ] non-palpable[ ] Pedal sensation: Right Foot: [x ] Intact [ ] Absent out of 10 sites Left Foot: [x ] Intact [ ] Absent out of 10 sites Skin Temperature: [x ] Warm to warm, proximal to distal [ ] Warm to cool/cold, proximal to distal Pedal skin: [x ] Intact [x ] Dry [ ] Cracked [ ] Discolored Webspaces: [x ] Intact [x ] Clean [ ] Soiled [ ] Macerated [x ] Dry Nails: [x ] Thickened [x ] Elongated [ ] Dystrophic [ ] Discolored [ ] Fungal [x ] Incurvated Left Hallux, painful to touch, bilateral distal corners removed by Dr. Castillo. [ ] Subungual debri Hyperkeratosis [ ] Yes, Locations: [x ] No Open lesions/wounds: [ ] Yes, Locations: [x ] No Amputations: [ ] Yes, Locations: [x ] No Edema present: (x ) Yes Trace edema bilateral ankles ( ) NO Podiatric Problem List: [x ] Diabetes mellitus [ ] Peripheral vascular disease [ ] Neuropathy [ ] Onychomycosis [x ] Dystrophic toenails [ ] Hyperkeratosis/calluses [x ] Xerosis/dry skin [ ] Other: Treatment: [x ] Nails x 10 debrided in length and thickness without incident [ ] Hyperkeratotic lesions were grinded down with eletric horseradish grinder and debrided without incidence. [x ]Patient education educated about proper foot and encouraged to check feet daily for injuries and wounds [x ] Instructed to moisturize feet daily but not in-between toes Patient referred to provider due to other concerns . Discussed with Dr. Castillo and plan of care provided. Patient is to RTC in 3 months. /cas/ TYRON GALLOWAY LPN LICENSED PRACTICAL NURSE Signed: 07/05/2023 15:28 Receipt Acknowledged By: 07/05/2023 17:03 /cas/ JOVI CASTILLO DPM PODIATRY ATTENDING TYRON GALLOWAY [facility]
--- OUTSIDE RECORDS SUMMARY | 2024-03-20 13:58 | XMS_ITS ---
Author Name [facility] of [facility] [place] [facility] [place] Organization [place] Address [address] [place] [address] Care Team Providers Care Paraplanner Name Role Phone SOFI MANCERA Primary Care [...] [place] MED[employer] CHARAN Haque Mar 13, 2015 [id number] VERONICA BROWN RT PATIENT MEDICARE (WNR) MEDICARE (M) PART B Aug 12, 2007 PART B [id number] VERONICA BROWN RT PATIENT MEDICARE (WNR) MEDICARE (M) PART A Jan 12, 2004 PART A [id number] VERONICA BROWN RT PATIENT Selected Encounter This section includes the information on record at [place] for the Encounter. Date/Time Encounter Type Encounter Description Reason Pro vider Source Jun 21, 2023 10:23 AM Outpatient Encounter RENAL/NEPHROL(EXCEPT DIALYSIS) IHE Encounter Template Text not used by VA Plan of Treatment: Future Appointments (+ 6 months) and Future Tests (+/- 45 days) The Plan of Treatment section includes future care activities for the patient [facility] [place] [facility] This section includes future appointments and [...] MEDICINE [facility] [place] [facility] Jul 06, 2023 10:30 AM AMBULATORY - MEDICINE [facility] [place] [facility] August 02, 2023 02:30 PM AMBULATORY - MEDICINE [facility] [place] [facility] August 08, 2023 02:00 PM AMBULATORY - MEDICINE [facility] [place] [facility] Aug 23, 2023 10:30 AM AMBULATORY - REHAB MEDICIN E [facility] [place] [facility] Sep 01, 2023 11:30 AM AMBULATORY - MEDICINE [facility] [place] [facility] Sep 11, 2023 02:30 PM AMBULATORY - MEDICINE [facility] [place] [facility] Sep 15, 2023 10:30 AM AMBULATORY - MEDICINE [facility] [place] [facility] Oct 02, 2023 09:30 AM AMBULATORY - MEDICINE [facility] [place] [facility] Oct 04, 2023 10:00 AM AMBULATORY - MEDICINE [facility] [place] [facility] Oct 11, 2023 09:00 AM AMBULATORY - MEDICINE [facility] [place] [facility] Oct 18, 2023 10:00 AM AMBULATORY - MEDICINE [facility] [place] [facility] Oct 30, 2023 09:00 AM AMBULATORY - MEDICINE [facility] [place] [facility] Nov 06, 2023 01:00 PM AMBULATORY - MEDICINE [facility] [place] [facility] Nov 20, 2023 09:30 AM AMBULATORY - MEDICINE [facility] [place] [facility] Dec 18, 2023 09:30 AM AMBULATORY - MEDICINE [facility] [place] [facility] Social History: Smoking Status (Most current) [...] VA-TOBACCO FORMER USER [place] [facility] [place] [facility] Tobacco Use History This section includes a history of the smoking, or tobacco-related health factors, that were collected on or before the date of the Encounter. The data comes from the [place] facility where the Encounter took place. Date/Time Smoking Status/Tobacco Use Comment Gamaliel landin Apr 26, 2023 10:00 AM VA-TOBACCO QUIT 15 YRS OR MORE [facility] [place] [facility] Mar 30, 2022 11:00 AM VA-TOBACCO FORMER USER [facility] [place] [facility] Mar 30, 2022 11:00 AM VA-TOBACCO QUIT 15 YRS OR MORE [facility] [place] [facility] Mar 17, 2021 01:30 PM VA-TOBACCO FORMER USER [facility] [place] [facility] Mar 17, 2021 01:30 PM VA-TOBACCO NEVER USED [facility] [place] [facility] Mar 17, 2021 01:30 PM VA-TOBACCO QUIT 15 YRS OR MORE [facility] [place] [facility] Mar 31, 2020 10:30 AM VA-TOBACCO FORMER USER [facility] [place] [facility] Mar 31, 2020 10:30 AM VA-TOBACCO QUIT 15 YRS OR MORE [facility] [place] [facility] Nov 23, 2018 12:07 PM VA-TOBACCO FORMER USER [facility] [place] [facility] Nov 23, 2018 12:07 PM VA-TOBACCO QUIT 15 YRS OR MORE [facility] [place] [facility] Nov 22, 2017 10:02 AM VA-TOBACCO NEVER USED [facility] [place] [facility] Mar 14, 2017 09:31 AM LIFETIME NON-TOBACCO USER [facility] [place] [facility] Mar 01, 2016 02:51 PM LIFETIME NON-TOBACCO USER [facility] [place] [facility] Feb 10, 2015 09:31 AM QUIT TOBACCO USE > 7 YEARS AGO quit in 1964 [facility] Encounter Notes: All associated encounter notes This section contains the clinical notes associated to the Encounter. Date/Time Encounter Note(s) Provider Source Jun 21, 2023 10:23 AM TELEPHONE ENCOUNTE R NOTE: LOCAL TITLE: TELEPHONE NOTE/SPECIALTY CLINIC STANDARD TITLE: TELEPHONE ENCOUNTER NOTE DATE OF NOTE: JUN 21, 2023@10:23 ENTRY DATE: JUN 21, 2023@10:23:50 AUTHOR: JENNIFER CHONG EXP COSIGNER: URGENCY: STATUS: COMPLETED called and is requesting refills on the following RX: - VITAMIN D3 (CHOLECALCIFEROL) TAB 25MCG Please advise /cas/ JENNIFER CHONG FRAUD ANALYST Signed: 06/21/2023 10:24 Receipt Acknowledged By: 06/21/2023 13:00 /cas/ ERIKA STEVENS M.D. OUTREACH COORDINATOR [employer] JENNIFER CHONG [facility]
--- OUTSIDE RECORDS SUMMARY | 2024-03-20 13:59 | XMS_ITS ---
Author Name [facility] [place] Organization [facility] [place] Address [address] [place] [address] Care Team Providers Care Extractor Operator Name Role Phone SOFI MANCERA Primary [...] MEDICARE [facility] CHARAN Haque Mar 13, 2015 [id number] VERONICA BROWN RT PATIENT MEDICARE (WNR) MEDICARE (M) PART B Aug 12, 2007 PART B [id number] VERONICA BROWN RT PATIENT MEDICARE (WNR) MEDICARE (M) PART A Jan 12, 2004 PART A [id number] VERONICA BROWN RT PATIENT Selected Encounter This section includes the information on record at [place] for the Encounter. Date/Time Encounter Type Encounter Description Reason Provider Source Sep 11, 2023 02:30 PM MTMS BY PHARM ADDL 15 MIN CLINICAL PHARMACY ICD-10-CM E11.9 Type 2 diabetes mellitus without complications RENETTA FRENCH Encounter Template Text not used by PA Assessments - Encounter Diagnoses This section includes the primary and secondary diagnoses documented for the Encounter. Date/Time Primary/Secondary Diagnosis Diagnosis Name Provider Source Sep 12, 2023 11:08 AM PRIMARY Type 2 diabetes mellitus without complications RENETTA FRENCH [place] [facility] [place] [facility] Plan of Treatment: Future Appointments (+ 6 months) and Future Tests (+/- 45 days) The Plan of Treatment section includes future care activities for the patient from all [place] treatmentfacilities. This section includes future appointments and future orders which are active, pending or scheduled. Future Appointments This section includes appointments that were scheduled to occur 6 months from the date of the Encounter, up to a maximum of 20 appointments. The data comes from all [place] treatment facilities. Appointment Date/Time Appointment Type Appointme nt Facility Name Sep 15, 2023 10:30 AM AMBULATORY - MEDICINE [facility] [place] [facility] Oct 02, 2023 09:30 AM AMBULATORY - MEDICINE [facility] [place] [facility] Oct 04, 2023 10:00 AM AMBULATORY - MEDICINE [facility] [place] [facility] Oct 11, 2023 09:00 AM AMBULATORY - MEDICINE [facility] [place] [facility] Oct 18, 2023 10:00 AM AMBULATORY - MEDICINE [facility] [place] [facility] Oct 30, 2023 09:00 AM AMBULATORY - MEDICINE [facility] [place] [facility] Nov 06, 2023 01:00 PM AMBULATORY - MEDICINE [facility] [place] [facility] Nov 20, 2023 09:30 AM AMBULATORY - MEDICINE [facility] [place] [facility] Dec 18, 2023 09:30 AM AMBULATORY - MEDICINE [facility] [place] [facility] Dec 27, 2023 02:00 PM AMBULATORY - MEDICINE [facility] [place] [facility] Dec 29, 2023 01:30 PM AMBULATORY - MEDICINE [facility] [place] [facility] Jan 01, 2024 02:30 PM AMBULATORY - MEDICINE [facility] [place] [facility] Jan 08, 2024 03:30 PM AMBULATORY - MEDICINE [facility] [place] [facility] Jan 29, 2024 10:30 AM AMBULATORY - MEDICINE [facility] [place] [facility] Jan 30, 2024 03:30 PM AMBULATORY - MEDICINE PA C [facility] [place] [facility] 2024 02:30 PM AMBULATORY - MEDICINE PA C [facility] [place] [facility] Feb 05, 2024 11:00 AM AMBULATORY - MEDICINE PA C [facility] [place] [facility] Feb 06, 2024 03:00 PM AMBULATORY - MEDICINE PA C [facility] [place] [facility] Feb 09, 2024 02:00 PM AMBULATORY - MEDICINE PA C [facility] [place] [facility] Feb 12, 2024 11:00 AM AMBULATORY - MEDICINE PA C [facility] [place] [facility] Lab Results: +/- 30 days of the encounter This section includes the Chemistry and Hematology Lab Results on record with PA for the patient. Radiology Reports and Pathology Reports are provided separately, in subsequent sections. Lab Results This section contains the Chemistry/Hematology Results that were resulted 30 days before or 30 daysafter the date of the Encounter. Date/Time Source Result Type Result - Unit Interpretation Reference Range Comment Oct 04, 2023 11:44 AM [facility] FERRITIN Specimen Type: SERUM No comment entered. Ordering Provider: ALYCIA TSEVENS Report Released Date/Time: May 09, 2023 11:25 AM Reporting Lab: [place] [facility] [place] [facility] [address] [address] Performing Lab: [facility] [address] [address] FERRITIN 73 ng/mL 20-300 Oct 04, 2023 11:44 AM [facility] CBC Specimen Type: BLOOD No comment entered. Ordering Provider: ALYCIA STEVENS Report Released Date/Time: May 09, 2023 11:25 AM Reporting Lab: [facility] [place] [facility] [address] [address] Performing Lab: [facility] [address] [address] WBC 7.68 10*3/uL 4.50-11.00 RBC 4.42 10*6/uL 4.23-5.66 HGB 14.1 g/dL 12.8-17 HCT 42.3 39.2-50.4 MCV 95.7 fL 82-99 MCHC 33.3 g/dL 30.8-35.1 PLT 160 10*3/uL 140-360 RDW-CV 14.2 12.0-16.0 MCH 31.9 pg 26.2-32.6 Oct 04, 2023 11:44 AM [facility] MICROALBUMIN CREATININE RATIO PANEL Specimen Type: URINE No comment entered. Ordering Provider: ALYCIA STEVENS A Report Released Date/Time: May 09, 2023 11:25 AM Reporting Lab: [facility] [address] [address] Performing Lab: [facility] [address] MICROALBUMIN/C REATININE RATIO 89.0 mg/g H 0-29.9 MICROALBUMIN,Q UANTITATIVE 7.5 mg/dL RR UNAVAIL CREATININE URINE 84.27 mg/dL Oct 04, 2023 11:44 AM [facility] IRON & TIBC PANEL Specimen Type: SERUM No comment entered. Ordering Provider: ALYCIA STEVENS Report Released Date/Time: May 09, 2023 11:25 AM Reporting Lab: [facility] [address] [facility] [address] Performing Lab: [address] [address] TIBC 342 ug/dL 204-475 IRON 96 ug/dL 40-160 Transferrin Saturation 28.1 20.0-50.0 Oct 04, 2023 11:44 AM [facility] BASIC METABOLIC PANEL (non-fasting) Specimen Type: SERUM No comment entered. Ordering Provider: ALYCIA STEVENS A Report Released Date/Time: May 09, 2023 11:25 AM Reporting Lab: [address] [address] Performing Lab: [address] [address] UREA NITROGEN 24 mg/dL 7-25 GLUCOSE 80 mg/dL 65-100 SODIUM 142 mmol/L 135-145 POTASSIUM 4.7 mmol/L 3.5-5.0 CHLORIDE 109 mmol/L 100-110 CO2 25 meq/L 20-30 CREATININE, Serum 1.96 mg/dL H 0.50-1.40 eGFR(CKD-EPI 2020) 33 mL/min L >60 Aug 23, 2023 11:19 AM [facility] TSH Specimen Type: SERUM No comment entered. Ordering Provider: SOFI MANCERA Report Released Date/Time: Aug 20, 2023 07:51 PM Reporting Lab: [address] [address] Performing Lab: [address] [address] TSH 1.38 u[IU]/mL 0.35-5.00 Aug 23, 2023 11:19 AM [facility] LIPID PANEL FASTING Specimen Type: SERUM No comment entered. Ordering Provider: SOFI MANCERA Report Released Date/Time: Aug 20, 2023 07:51 PM Reporting Lab: [address] [address] Performing Lab: [address] [address] CHOLESTEROL 130 mg/dL TRIGLYCERIDE 120 mg/dL 0-150 LDL calculated 54 mg/dL 0-129 CHOL/HDL 2.5 HDL CHOLESTEROL 52 mg/dL 40-60 Aug 23, 2023 11:19 AM [facility] BASIC METABOLIC PANEL (fasting) Specimen Type: SERUM No comment entered. Ordering Provider: SOFI MANCERA Report Released Date/Time: Aug 20, 2023 07:51 PM Reporting Lab: [address] [address] Performing Lab: [address] [address] UREA NITROGEN 26 mg/dL H 7-25 GLUCOSE 120 mg/dL H 65-100 SODIUM 142 mmol/L 135-145 POTASSIUM 5.0 mmol/L 3.5-5.0 CHLORIDE 112 mmol/L H 100-110 CO2 25 meq/L 20-30 CREATININE, Serum 1.90 mg/dL H 0.50-1.40 eGFR(CKD-EPI 2020) 34 mL/min L >60 Aug 23, 2023 11:19 AM [facility] LIVER FUNCTION Specimen Type: SERUM No comment entered. Ordering Provider: SOFI MANCERA Report Released Date/Time: Aug 20, 2023 07:51 PM Reporting Lab: [address] [address] Performing Lab: [address] [address] PROTEIN,TOTAL 6.3 g/dL 6.0-8.3 ALBUMIN 3.6 g/dL 3.5-5.0 ALKALINE PHOSPHATASE 66 U/L 40-150 AST 14 U/L 5-34 ALT 14 U/L BILIRUBIN, TOTAL 0.6 mg/dL 0.2-1.2 Aug 23, 2023 11:19 AM [facility] HEMOGLOBIN A1C PANEL Specimen Type: BLOOD [...] Aug 20, 2023 07:51 PM Reporting Lab: [address] [address] Performing Lab: [address] [address] HEMOGLOBIN A1C 6.3 H 4.0-5.6 Aug 23, 2023 11:19 AM [facility] CBC AND DIFF (AUTO) Specimen Type: BLOOD No comment entered. Ordering Provider: SOFI MANCERA Report Released Date/Time: Aug 20, 2023 07:51 PM Reporting Lab: [address] [address] Performing Lab: [facility] [address] [facility] [address] WBC 7.43 10*3/uL 4.50-11.00 RBC 4.21 10*6/uL L 4.23-5.66 HGB 13.6 g/dL 12.8-17 HCT 40.0 39.2-50.4 MCV 95.0 fL 82-99 MCHC 34.0 g/dL 30.8-35.1 PLT 165 10*3/uL 140-360 RDW-CV 14.3 12.0-16.0 [place], Abs 0.72 10*3/uL 0.30-1.10 MCH 32.3 pg [...] 10*3/uL 0.00-0.06 Aug 23, 2023 11:19 AM [facility] URIC ACID Specimen Type: SERUM No comment entered. Ordering Provider: SOFI MANCERA Report Released Date/Time: Aug 20, 2023 07:51 PM Reporting Lab: [facility] [address] [facility] [address] Performing Lab: [facility] [address] [facility] [address] URIC ACID 3.0 mg/dL L 3.5-7.2 Aug 23, 2023 11:19 AM [facility] MICROALBUMIN CREATININE RATIO PANEL Specimen Type: URINE No comment entered. Ordering Provider: SOFI MANCERA Report Released Date/Time: Aug 20, 2023 07:51 PM Reporting Lab: [address] [address] Performing Lab: [address] [address] MICROALBUMIN/C REATININE RATIO canc mg/g 0-29.9 MICROALBUMIN,Q UANTITATIVE < 0.5 mg/dL RR UNAVAIL CREATININE URINE 108.02 mg/dL Aug 23, 2023 11:19 AM [facility] URINALYSIS CLEAN CATCH Specimen Type: URINE Comment: If Glucose = >500 and Ketones are positive, please alert the Physician. Ordering Provider: SOFI MANCERA Report Released Date/Time: Aug 20, 2023 07:51 PM Reporting Lab: [address] [address] Performing Lab: [address] [address] UA COLOR Light-Yellow Yellow UA APPEARANCE Clear [...] and tobacco- related health factors from the [place] facility where the Encounter took place. Current Smoking Status This section includes the most current smoking, or tobacco-related health factor, from the [place] facility where the Encounter took place. Date/Time Current Smoking Status Comment María Elena ity Apr 26, 2023 10:00 AM VA-TOBACCO FORMER USER [facility] Tobacco Use History This section includes a history of the smoking, or tobacco-related health factors, that were collected on or before the date of the Encounter. The data comes from the [place] facility where the Encounter took place. Date/Time Smoking Status/Tobacco Use Comment F acshahbaz Apr 26, 2023 10:00 AM VA-TOBACCO QUIT 15 YRS OR MORE [facility] [place] [facility] Mar 30, 2022 11:00 AM VA-TOBACCO FORMER USER [facility] [place] [facility] Mar 30, 2022 11:00 AM VA-TOBACCO QUIT 15 YRS OR MORE [facility] [place] [facility] Mar 17, 2021 01:30 PM VA-TOBACCO FORMER USER [facility] [place] [facility] Mar 17, 2021 01:30 PM VA-TOBACCO NEVER USED [facility] [place] [facility] Mar 17, 2021 01:30 PM VA-TOBACCO QUIT 15 YRS OR MORE [facility] [place] [facility] Mar 31, 2020 10:30 AM VA-TOBACCO FORMER USER [facility] [place] [facility] Mar 31, 2020 10:30 AM VA-TOBACCO QUIT 15 YRS OR MORE [facility] [place] [facility] Nov 23, 2018 12:07 PM VA-TOBACCO FORMER USER [facility] [place] [facility] Nov 23, 2018 12:07 PM VA-TOBACCO QUIT 15 YRS OR MORE [facility] [place] [facility] Nov 22, 2017 10:02 AM VA-TOBACCO NEVER USED [facility] [place] [facility] Mar 14, 2017 09:31 AM LIFETIME NON-TOBACCO USER [facility] [place] [facility] Mar 01, 2016 02:51 PM LIFETIME NON-TOBACCO USER [facility] [place] [facility] Feb 10, 2015 09:31 AM QUIT TOBACCO USE > 7 YEARS AGO quit in [address] [place] [address] [facility] [place] [facility] Encounter Notes: All associated encounter notes This section contains the clinical notes associated to the Encounter. Date/Time Encounter Note(s) Provider Source Sep 12, 2023 04:14 PM ADDENDUM: LOCAL TITLE: Addendum STANDARD TITLE: ADDENDUM DATE OF NOTE: SEP 12, 2023@16:14:33 ENTRY DATE: SEP 12, 2023@16:14:34 AUTHOR: RENETTA FRENCH EXP COSIGNER: URGENCY: STATUS: COMPLETED AMSA, please schedule appointment for: - Cwm/No/Pharm/Pact 2 Please schedule for 09/15/23 @ 1030 Thank you! /es/ RENETTA FRENCH PHARMD, [facility] CLINICAL PHARMACIST PRACTITIONER Signed: 09/12/2023 16:14 Receipt Acknowledged By: 09/12/2023 16:22 /es/ RENEE MICHEL --- Original Document --- 09/11/23 CONSULT REPORT/PHARMACY: JACQUELYN BROWN, 83 yo WHITE MALE, presents for [id number]-deag INITIAL VISIT for diabetes management. SEP 11, 2023 Known Allergies: METFORMIN, LISINOPRIL, ATORVASTATIN Subjective: Alger referred to pharmacy clinic for diabetes management. Pt states he was diagnosed ~15 years ago, previously followed by non-VA provider and then Dr. Dumont. At time of diagnosis, pt was started on metformin but was unable to tolerate. He was changed to basal-bolus insulin regimen. Through LSMs, pt was able to lose weight and insulin aspart was discontinued due to hypoglycemia. Pt reports he would start shaking and sweating resulting in medication change to basal insulin only (2021). There was also a discussion of starting empagliflozin in the past. Pt has extensive renal history. He has a history of kidney stones and has been hospitalized at least three times for kidney stones/infections. He states that 15 years ago, he went for ablation of kidney stone and it was discovered the scarring was so extensive, that the kidney shutdown. Pt has one active kidney currently. He is also followed by non- PA urology for his prostate. Pt has noturia 4-5 times/night and does report occasional incontinence. For those reasons, empagliflozin was prescribed but then discontinued. Pt followed by non-VA self storage manager for afib. He states that he has had chest pain in the past that has radiated to jaw and arm but EKG was negative. He wore a monitor for 15 days and pt states self storage manager told him he had a heart attack on the monitor but pt denied symptoms at that time. Pt is also followed by non-VA opthamologist for wet macular edema as well as [facility] optometry. Pt states that as of recently, his physical activity has escaped him and he has not gone to the gym for the last 2-3 weeks. Otherwise pt is fairly active. He has been having difficulty with weight gain since over the past year. Pt SMBG twice daily. Denies s/sx of hypoglycemia since stopping insulin aspart. Pt notes that he adjusts insulin dose based on bedtime blood glucose reading. Target Goals: A1C: <8%; FB-150 mg/dl Personal goals: - Maintain diabetes - Lose weight - eliminate insulin Objective: Diabetes Medication Regimen: Current diabetes medications: - insulin glargine-yfgn 20-28 units in the evening Previous diabetes medications: - metformin - insulin aspart Medication Adherence: denies adherence issues Diet Patterns: patient eats on avg. 3x/day: B: bran muffin, 2 scrambled eggs with toast; raisin bran or cheerios L: sandwich, go out for lunch, hill salad D: shepards pie, what cooks, cheese burger, pasta, pork chops Snacks: milky way, caramel chocolate, fruit Drinks: two cups of tea with splenda, water, cannot drink alot of water, diet coke Alcohol: denies Tobacco: denies Exercise: walking, [employer] 2x a week, work around the house Occupation: retired Other: - Denies personal or fhx thyroid cancer or MENS - Denies hx pancreatitis - Denies hx MH/depression/denies SI - Denies hx of UTI SMBG: FBG PPBG 08/28/23 131 172 08/29/23 102 170 08/30/23 113 137 08/31/23 114 183 09/01/23 118 09/02/23 121 188 09/03/23 110 174 09/04/23 147 182 09/05/23 132 180 09/06/23 122 238 09/07/23 125 176 09/08/23 117 152 09/09/23 117 145 09/10/23 115 176 Average: 120 177 SMBG assessment: FPBG and PPBG average at goal; some excursions noted HYPOGLYCEMIC Events: 0 in last 2 weeks - Hypoglycemia recognition & treatment reviewed: Yes (Rule of 15) Allergies/ADR: METFORMIN, LISINOPRIL, ATORVASTATIN Active and Recently Outpatient Medications (including Supplies): Active Outpatient Medications Status 1) ACCU-CHEK GUIDE (GLUCOSE) TEST STRIP USE 1 STRIP TO ACTIVE TEST BLOOD SUGARS TWICE DAILY FOR USE WITH ACCU-CHECK GUIDE ME METER 2) ALLOPURINOL 300MG TAB TAKE ONE TABLET BY MOUTH ONCE ACTIVE DAILY FOR GOUT 3) ASCORBIC ACID 500MG TAB TAKE ONE TABLET BY MOUTH ONCE ACTIVE (S) DAILY FOR VITAMIN/NUTRITION SUPPLEMENT 4) CHOLECALCIF 25MCG (D3-1,000UNIT) TAB TAKE ONE [...] 20MG TAB TAKE ONE AND ONE-HALF ACTIVE (S) TABLETS BY MOUTH AT BEDTIME FOR CHOLESTEROL 15) TAMSULOSIN HCL 0.4MG CAP TAKE TWO CAPSULES BY MOUTH ACTIVE (S) AT BEDTIME Active Non-VA Medications Status 1) Non-VA METOPROLOL SUCCINATE 25MG SA TAB 25MG BY MOUTH ACTIVE EVERY DAY 18 Total Medications Labs: CHEM 7 TREND LAB CUMULATIVE SELECTED Collection DT Spec GLUCOSE BUN CREATIN Sodium K+/Pot CL CO2 08/23/2023 11:19 SERUM 120 H 26 H 1.90 H 142 5.0 112 H 25 04/26/2023 11:12 SERUM 136 H 23 2.01 H 140 4.7 109 25 04/06/2023 11:39 SERUM 163 H 23 1.90 H 140 4.7 108 23 03/23/2023 14:03 SERUM 173 H 20 1.96 H 144 4.7 111 H 23 12/06/2022 13:43 SERUM 140 H 23 1.81 H 140 4.7 108 24 CHEM 7 Results Collection DT Spec Sodium K+/Pot CL CO2 GLUCOSE BUN eGFR 08/23/2023 11:19 SERUM 142 5.0 112 H 25 120 H 26 H 04/26/2023 11:12 SERUM 140 4.7 109 25 136 H 23 04/06/2023 11:39 SERUM 140 4.7 108 23 163 H 23 03/23/2023 14:03 SERUM 144 4.7 111 H 23 173 H 20 12/06/2022 13:43 SERUM 140 4.7 108 24 140 H 23 10/24/2022 13:57 SERUM 139 4.7 108 24 110 H 21 07/22/2022 14:19 SERUM 141 4.7 108 25 164 H 25 03/22/2022 09:13 SERUM 141 4.3 111 H 22 119 H 24 01/12/2022 12:00 SERUM 141 4.4 109 21 177 H 23 10/25/2021 11:37 SERUM 140 4.9 106 24 110 H 22 07/08/2021 11:18 SERUM 142 4.7 110 21 123 H 22 03/10/2021 11:49 SERUM 142 4.5 107 25 172 H 23 11/10/2020 08:25 SERUM 141 4.3 109 22 91 24 07/31/2020 11:49 SERUM 140 4.8 107 25 160 H 26 H 03/23/2020 15:32 SERUM 142 4.7 109 24 100 29 H eGFR CKD-EPI 202008/23/23 11:19 34 L SERUM LIVER PANEL TREND Collection DT Spec AST ALT T BILI ALK LEONOR T. PROT ALBUMIN 08/23/2023 11:19 SERUM 14 14 0.6 66 6.3 3.6 04/26/2023 11:12 SERUM 78 04/06/2023 11:39 SERUM 14 10 0.5 70 6.3 3.6 03/23/2023 14:03 SERUM 74 12/06/2022 13:43 SERUM 14 14 0.6 87 6.4 3.6 HEMOGLOBIN A1C TREND Collection DT Spec HGBA1c 08/23/2023 11:19 BLOOD 6.3 H 04/06/2023 11:39 BLOOD 6.4 H 12/06/2022 13:43 BLOOD 6.3 H 07/22/2022 14:19 BLOOD 6.1 H 03/22/2022 09:13 BLOOD 6.4 H LIPID PANEL TREND Collection DT Spec CHOL HDL CHO/HDL LDL-d LDL-c TRIG 08/23/2023 11:19 SERUM 130 52 2.5 54 120 04/26/2023 11:12 SERUM 131 49 04/06/2023 11:39 SERUM 142 53 2.7 65 118 03/23/2023 14:03 SERUM 138 49 12/06/2022 13:43 SERUM 153 54 2.8 70 144 Vitals: Ht: 68 in [172.7 cm] (09/01/2023 11:18) Wt: 224.9 lb [102.01 kg] (09/01/2023 11:18) BMI: BMI: 34.3 BP: 132/82 (09/01/2023 11:18) HR: 64 (09/01/2023 11:18) Assessment: DIABETES: Goal: A1c goal is <8% with a goal fasting BG average of 90-150mg/dL and a goal post-prandial BG average of <180mg/dL per ADA guideline. Goal adjusted based on age and CKD history. Pt currently at goal (A1C 6.3% 08/23/23). Educated pt on A1c and BG targets, long-term complications of uncontrolled diabetes (i.e. damage to heart, eyes, kidneys, nerves, etc), components of healthy diabetic diet (i.e. consume 3 meals/day, do not skip or delay meals, basics of CHO counting, healthy snack choices, etc). Discussed pharmacologic options. Based on kidney issues, will defer from SGLT-2 inhibitors. GLP-1RA may prove beneficial for its added renal/cardioprotection. Pt is looking to lose weight and these medications provide most weight-loss. Would reduce and eventually eliminate insulin glargine-yfgn as needed. Pt educated to not adjust insulin glargine-yfgn. Discussed LSMs. Pt to start going back to the gym and increase physical activity to help reduce weight and insulin dose. Declines nutrition but committed to eliminating sweets from diet. Pt to continue SMBG twice daily. CARDIOVASCULAR: For patients 60 years and over with Diabetes, recommend a goal of <140/90, with added benefit of reducing SBP closer to 130. 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 [phone] EDUCATION -A shared decision-making approach was used in the development of this plan, involving the , clinician, and any caregivers present. The was provided the opportunity express questions or concerns, and the plan was adjusted as needed to address these concerns. -Reviewed with Alger any new medications, changes to the medication list, education, and plan from today's visit. Patient (and/or caregiver) verbalized understanding of the plan, including possible known risks and benefits, and had no additional questions. RTC: After medication approval Time Spent: 45 minutes PBM PharmD Pharmacotherapy Rem V12: PHARMACIST INTERVENTIONS: TYPE 2 DIABETES MELLITUS Medication monitoring, no dosage change required, continue to monitor and assess OBESITY/WEIGHT MANAGEMENT Medication monitoring, no dosage change required, continue to monitor and assess Medication reconciliation (changes to active VA and non-VA medication lists to reconcile differences) No changes to medication lists made (medication review completed, no discrepancies identified) /cas/ RENETTA FRENCH PHARMD, [facility] CLINICAL PHARMACIST PRACTITIONER Signed: 09/12/2023 11:09 RENETTA FRENCH PA [facility] [place] [facility] Sep 11, 2023 02:32 PM PHARMACY CONSULT: LOCAL TITLE: CONSULT REPORT/PHARMACY STANDARD TITLE: PHARMACY CONSULT DATE OF NOTE: SEP 11, 2023@14:32 ENTRY DATE: SEP 11, 2023@14:32:38 AUTHOR: RENETTA FRENCH EXP COSIGNER: URGENCY: STATUS: COMPLETED CONSULT REPORT/PHARMACY Has ADDENDA JACQUELYN BROWN, 83 yo WHITE MALE, presents for yvsp-bv-rxfo INITIAL VISIT for diabetes management. SEP 11, 2023 Known Allergies: METFORMIN, LISINOPRIL, ATORVASTATIN Subjective: Alger referred to pharmacy clinic for diabetes management. Pt states he was diagnosed ~15 years ago, previously followed by non-VA provider and then Dr. Dumont. At time of diagnosis, pt was started on metformin but was unable to tolerate. He was changed to basal-bolus insulin regimen. Through LSMs, pt was able to lose weight and insulin aspart was discontinued due to hypoglycemia. Pt reports he would start shaking and sweating resulting in medication change to basal insulin only (2021). There was also a discussion of starting empagliflozin in the past. Pt has extensive renal history. He has a history of kidney stones and has been hospitalized at least three times for kidney stones/infections. He states that 15 years ago, he went for ablation of kidney stone and it was discovered the scarring was so extensive, that the kidney shutdown. Pt has one active kidney currently. He is also followed by [facility]- [facility]rology for his prostate. Pt has noturia 4-5 times/night and does report occasional incontinence. For those reasons, empagliflozin was prescribed but then discontinued. Pt followed by non-VA self storage manager for afib. He states that he has had chest pain in the past that has radiated to jaw and arm but EKG was negative. He wore a monitor for 15 days and pt states self storage manager told him he had a heart attack on the monitor but pt denied symptoms at that time. Pt is also followed by non-VA opthamologist for wet macular edema as well as [facility]. Pt states that as of recently, his physical activity has escaped him and he has not gone to the gym for the last 2-3 weeks. Otherwise pt is fairly active. He has been having difficulty with weight gain since over the past year. Pt SMBG twice daily. Denies s/sx of hypoglycemia since stopping insulin aspart. Pt notes that he adjusts insulin dose based on bedtime blood glucose reading. Target Goals: A1C: <8%; FB-150 mg/dl Personal goals: - Maintain diabetes - Lose weight - eliminate insulin Objective: Diabetes Medication Regimen: Current diabetes medications: - insulin glargine-yfgn 20-28 units in the evening Previous diabetes medications: - metformin - insulin aspart Medication Adherence: denies adherence issues Diet Patterns: patient eats on avg. 3x/day: B: bran muffin, 2 scrambled eggs with toast; raisin bran or cheerios L: sandwich, go out for lunch, hill salad D: shepards pie, what cooks, cheese burger, pasta, pork chops Snacks: milky way, caramel chocolate, fruit Drinks: two cups of tea with splenda, water, cannot drink alot of water, diet coke Alcohol: denies Tobacco: denies Exercise: walking, [employer] 2x a week, work around the house Occupation: retired Other: - Denies personal or fhx thyroid cancer or MENS - Denies hx pancreatitis - Denies hx MH/depression/denies SI - Denies hx of UTI SMBG: FBG PPBG 08/28/23 131 172 08/29/23 102 170 08/30/23 113 137 08/31/23 114 183 09/01/23 118 09/02/23 121 188 09/03/23 110 174 09/04/23 147 182 09/05/23 132 180 09/06/23 122 238 09/07/23 125 176 09/08/23 117 152 09/09/23 117 145 09/10/23 115 176 Average: 120 177 SMBG assessment: FPBG and PPBG average at goal; some excursions noted HYPOGLYCEMIC Events: 0 in last 2 weeks - Hypoglycemia recognition & treatment reviewed: Yes (Rule of 15) Allergies/ADR: METFORMIN, LISINOPRIL, ATORVASTATIN Active and Recently Outpatient Medications (including Supplies): Active Outpatient Medications Status 1) ACCU-CHEK GUIDE (GLUCOSE) TEST STRIP USE 1 STRIP TO ACTIVE TEST BLOOD SUGARS TWICE DAILY FOR USE WITH ACCU-CHECK GUIDE ME METER 2) ALLOPURINOL 300MG TAB TAKE ONE TABLET BY MOUTH ONCE ACTIVE DAILY FOR GOUT 3) ASCORBIC ACID 500MG TAB TAKE ONE TABLET BY MOUTH ONCE ACTIVE (S) DAILY FOR VITAMIN/NUTRITION SUPPLEMENT 4) CHOLECALCIF 25MCG (D3-1,000UNIT) TAB TAKE ONE [...] 20MG TAB TAKE ONE AND ONE-HALF ACTIVE (S) TABLETS BY MOUTH AT BEDTIME FOR CHOLESTEROL 15) TAMSULOSIN HCL 0.4MG CAP TAKE TWO CAPSULES BY MOUTH ACTIVE (S) AT BEDTIME Active Non-VA Medications Status 1) Non-VA METOPROLOL SUCCINATE 25MG SA TAB 25MG BY MOUTH ACTIVE EVERY DAY 18 Total Medications Labs: CHEM 7 TREND LAB CUMULATIVE SELECTED Collection DT Spec GLUCOSE BUN CREATIN Sodium K+/Pot CL CO2 08/23/2023 11:19 SERUM 120 H 26 H 1.90 H 142 5.0 112 H 25 04/26/2023 11:12 SERUM 136 H 23 2.01 H 140 4.7 109 25 04/06/2023 11:39 SERUM 163 H 23 1.90 H 140 4.7 108 23 03/23/2023 14:03 SERUM 173 H 20 1.96 H 144 4.7 111 H 23 12/06/2022 13:43 SERUM 140 H 23 1.81 H 140 4.7 108 24 CHEM 7 Results Collection DT Spec Sodium K+/Pot CL CO2 GLUCOSE BUN eGFR 08/23/2023 11:19 SERUM 142 5.0 112 H 25 120 H 26 H 04/26/2023 11:12 SERUM 140 4.7 109 25 136 H 23 04/06/2023 11:39 SERUM 140 4.7 108 23 163 H 23 03/23/2023 14:03 SERUM 144 4.7 111 H 23 173 H 20 12/06/2022 13:43 SERUM 140 4.7 108 24 140 H 23 10/24/2022 13:57 SERUM 139 4.7 108 24 110 H 21 07/22/2022 14:19 SERUM 141 4.7 108 25 164 H 25 03/22/2022 09:13 SERUM 141 4.3 111 H 22 119 H 24 01/12/2022 12:00 SERUM 141 4.4 109 21 177 H 23 10/25/2021 11:37 SERUM 140 4.9 106 24 110 H 22 07/08/2021 11:18 SERUM 142 4.7 110 21 123 H 22 03/10/2021 11:49 SERUM 142 4.5 107 25 172 H 23 11/10/2020 08:25 SERUM 141 4.3 109 22 91 24 07/31/2020 11:49 SERUM 140 4.8 107 25 160 H 26 H 03/23/2020 15:32 SERUM 142 4.7 109 24 100 29 H eGFR CKD-EPI 202008/23/23 11:19 34 L SERUM LIVER PANEL TREND Collection DT Spec AST ALT T BILI ALK LEONOR T. PROT ALBUMIN 08/23/2023 11:19 SERUM 14 14 0.6 66 6.3 3.6 04/26/2023 11:12 SERUM 78 04/06/2023 11:39 SERUM 14 10 0.5 70 6.3 3.6 03/23/2023 14:03 SERUM 74 12/06/2022 13:43 SERUM 14 14 0.6 87 6.4 3.6 HEMOGLOBIN A1C TREND Collection DT Spec HGBA1c 08/23/2023 11:19 BLOOD 6.3 H 04/06/2023 11:39 BLOOD 6.4 H 12/06/2022 13:43 BLOOD 6.3 H 07/22/2022 14:19 BLOOD 6.1 H 03/22/2022 09:13 BLOOD 6.4 H LIPID PANEL TREND Collection DT Spec CHOL HDL CHO/HDL LDL-d LDL-c TRIG 08/23/2023 11:19 SERUM 130 52 2.5 54 120 04/26/2023 11:12 SERUM 131 49 04/06/2023 11:39 SERUM 142 53 2.7 65 118 03/23/2023 14:03 SERUM 138 49 12/06/2022 13:43 SERUM 153 54 2.8 70 144 Vitals: Ht: 68 in [172.7 cm] (09/01/2023 11:18) Wt: 224.9 lb [102.01 kg] (09/01/2023 11:18) BMI: BMI: 34.3 BP: 132/82 (09/01/2023 11:18) HR: 64 (09/01/2023 11:18) Assessment: DIABETES: Goal: A1c goal is <8% with a goal fasting BG average of 90-150mg/dL and a goal post-prandial BG average of <180mg/dL per ADA guideline. Goal adjusted based on age and CKD history. Pt currently at goal (A1C 6.3% 08/23/23). Educated pt on A1c and BG targets, long-term complications of uncontrolled diabetes (i.e. damage to heart, eyes, kidneys, nerves, etc), components of healthy diabetic diet (i.e. consume 3 meals/day, do not skip or delay meals, basics of CHO counting, healthy snack choices, etc). Discussed pharmacologic options. Based on kidney issues, will defer from SGLT-2 inhibitors. GLP-1RA may prove beneficial for its added renal/cardioprotection. Pt is looking to lose weight and these medications provide most weight-loss. Would reduce and eventually eliminate insulin glargine-yfgn as needed. Pt educated to not adjust insulin glargine-yfgn. Discussed LSMs. Pt to start going back to the gym and increase physical activity to help reduce weight and insulin dose. Declines nutrition but committed to eliminating sweets from diet. Pt to continue SMBG twice daily. CARDIOVASCULAR: For patients 60 years and over with Diabetes, recommend a goal of <140/90, with added benefit of reducing SBP closer to 130. 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 [phone] EDUCATION -A shared decision-making approach was used in the development of this plan, involving the Alger, clinician, and any caregivers present. The Alger was provided the opportunity express questions or concerns, and the plan was adjusted as needed to address these concerns. -Reviewed with any new medications, changes to the medication list, education, and plan from today's visit. Patient (and/or caregiver) verbalized understanding of the plan, including possible known risks and benefits, and had no additional questions. RTC: After medication approval Time Spent: 45 minutes PBM PharmD Pharmacotherapy Rem V12: PHARMACIST INTERVENTIONS: TYPE 2 DIABETES MELLITUS Medication monitoring, no dosage change required, continue to monitor and assess OBESITY/WEIGHT MANAGEMENT Medication monitoring, no dosage change required, continue to monitor and assess Medication reconciliation (changes to active VA and non-VA medication lists to reconcile differences) No changes to medication lists made (medication review completed, no discrepancies identified) /aida FRENCH PHARMD, BCPS CLINICAL PHARMACIST PRACTITIONER Signed: 09/12/2023 11:09 09/12/2023 ADDENDUM STATUS: COMPLETED AMSA, please schedule appointment for: - Cwm/Helga/Pharm/Pact 2 Please schedule for 09/15/23 @ 1030 Thank you! /es/ ADITIYA FRENCH, PHARMD, BCPS CLINICAL PHARMACIST PRACTITIONER Signed: 09/12/2023 16:14 Receipt Acknowledged By: * AWAITING SIGNATURE * RENEE MORRIS [facility]
--- OUTSIDE RECORDS SUMMARY | 2024-03-20 13:59 | XMS_ITS ---
Author Name [facility] [place] [facility] [place] [facility] [place] Address [address] [place] [address] Care Team Providers Care Railway Switchman Name Role Phone NERI MANCERA Primary Care [...] [facility] CHARAN E Mar 13, 2015 [id number] VERONICA BROWN RT PATIENT MEDICARE (WNR) MEDICARE (M) PART B Aug 12, 2007 PART B [id number] VERONICA BROWN RT PATIENT MEDICARE (WNR) MEDICARE (M) PART A Jan 12, 2004 PART A [id number] VERONICA BROWN RT PATIENT Selected Encounter This section includes the information on record at [place] for the Encounter. Date/Time Encounter Type Encounter Description Reason Pro vider Source Sep 18, 2023 10:45 AM Outpatient Encounter ADMIN PAT ACTIVTIES (MASNONCT) IHE Encounter Template Text not used by [place] Plan of Treatment: Future Appointments (+ 6 months) and Future Tests (+/- 45 days) The Plan of Treatment section includes future care activities for the patient from [facility] [place] [facility] This section includes future appointments and future orders which are active, pending or scheduled. Future Appointments This section includes appointments that were scheduled to occur 6 months from the date of the Encounter, up to a maximum of 20 appointments. The data comes from all [place] treatment facilities. Appointment Date/Time Appointment Type Appointme nt Facility Name Oct 02, 2023 09:30 AM [facility] [place] [facility] Oct 04, 2023 10:00 AM [facility] [place] [facility] Oct 11, 2023 09:00 AM [facility]ATORY [facility] [place] [facility] Oct 18, 2023 10:00 AM [facility]ULATORY [facility] [place] [facility] Oct 30, 2023 09:00 AM [facility]ATORY [facility] [place] [facility] Nov 06, 2023 01:00 PM AMBULATORY - MEDICINE [facility] [place] [facility] Nov 20, 2023 09:30 AM [facility]ULATORY [facility] [place] [facility] Dec 18, 2023 09:30 AM AM[facility]ULATORY [facility] MED[facility] [place] [facility] Dec 27, 2023 02:00 PM AMBULATORY - MEDICINE [facility] [place] [facility] Dec 29, 2023 01:30 PM AMBULATORY [facility] MEDICINE [facility] [place] [facility] Jan 01, 2024 02:30 PM AMBULATORY [facility] MEDICINE [facility] [place] [facility] Jan 08, 2024 03:30 PM AMBULATORY [facility] MEDICINE [facility] [place] [facility] Jan 29, 2024 10:30 AM AM[facility]ULATORY [facility]ICINE [facility] [place] [facility] Jan 30, 2024 03:30 PM AM[facility]ULATORY [facility]INE [facility] [place] [facility] 2024 02:30 PM AMBULATORY [facility] MEDICINE [facility] [place] [facility] Feb 05, 2024 11:00 AM AM[facility]ULATORY [facility] [place] [facility] Feb 06, 2024 03:00 PM [facility]ULATORY [facility] [place] [facility] Feb 09, 2024 02:00 PM AMBULATORY - MEDICINE [facility] [place] [facility] Feb 12, 2024 11:00 AM [facility] Feb 15, 2024 01:00 PM [facility] Lab Results: +/- 30 days [...] Range Comment Oct 04, 2023 11:44 AM [facility] FERRITIN Specimen Type: SERUM No comment entered. Ordering Provider: ALYCIA STEVENS Report Released Date/Time: May 09, 2023 11:25 AM Reporting Lab: [facility] [address] [address] Performing Lab: [facility] [address] FERRITIN 73 ng/mL 20-300 Oct 04, 2023 11:44 AM [facility] CBC Specimen Type: BLOOD No comment entered. Ordering Provider: ALYCIA STEVENS Report Released Date/Time: May 09, 2023 11:25 AM Reporting Lab: [facility] [address] Performing Lab: [facility] [address] [address] WBC 7.68 10*3/uL 4.50-11.00 RBC 4.42 10*6/uL 4.23-5.66 HGB 14.1 g/dL 12.8-17 HCT 42.3 39.2-50.4 MCV 95.7 fL 82-99 MCHC 33.3 g/dL 30.8-35.1 PLT 160 10*3/uL 140-360 RDW-CV 14.2 12.0-16.0 MCH 31.9 pg 26.2-32.6 Oct 04, 2023 11:44 AM [facility] MICROALBUMIN CREATININE RATIO PANEL Specimen Type: URINE No comment entered. Ordering Provider: ALYCIA STEVENS Report Released Date/Time: May 09, 2023 11:25 AM Reporting Lab: [facility] [address] [facility] [address] Performing Lab: [facility] [address] [address] MICROALBUMIN/C REATININE RATIO 89.0 mg/g H 0-29.9 MICROALBUMIN,Q UANTITATIVE 7.5 mg/dL RR UNAVAIL CREATININE URINE 84.27 mg/dL Oct 04, 2023 11:44 AM [facility] IRON & TIBC PANEL Specimen Type: SERUM No comment entered. Ordering Provider: ALYCIA STEVENS Report Released Date/Time: May 09, 2023 11:25 AM Reporting Lab: [facility] [address] [facility] [address] Performing Lab: [facility] [address] [address] TIBC 342 ug/dL 204-475 IRON 96 ug/dL 40-160 Transferrin Saturation 28.1 20.0-50.0 Oct 04, 2023 11:44 AM [facility] BASIC METABOLIC PANEL (non-fasting) Specimen Type: SERUM No comment entered. Ordering Provider: ALYCIA STEVENS Report Released Date/Time: May 09, 2023 11:25 AM Reporting Lab: [facility] [address] [facility] [address] Performing Lab: [address] [address] UREA NITROGEN 24 mg/dL 7-25 GLUCOSE 80 mg/dL 65-100 SODIUM 142 mmol/L 135-145 POTASSIUM 4.7 mmol/L 3.5-5.0 CHLORIDE 109 mmol/L 100-110 CO2 25 meq/L 20-30 CREATININE, Serum 1.96 mg/dL H 0.50-1.40 eGFR(CKD-EPI 2021) 33 mL/min L >60 Aug 23, 2023 11:19 AM [facility] TSH Specimen Type: SERUM No comment entered. Ordering Provider: NERI MANCERA Report Released Date/Time: Aug 20, 2023 07:51 PM Reporting Lab: [facility] [address] [facility] [address] Performing Lab: [address] [address] TSH 1.38 u[IU]/mL 0.35-5.00 Aug 23, 2023 11:19 AM [facility] LIPID PANEL FASTING Specimen Type: SERUM No comment entered. Ordering Provider: NERI MANCERA Report Released Date/Time: Aug 20, 2023 07:51 PM Reporting Lab: [facility] [address] [facility] [address] Performing Lab: [address] [address] CHOLESTEROL 130 mg/dL TRIGLYCERIDE 120 mg/dL 0-150 LDL calculated 54 mg/dL 0-129 CHOL/HDL 2.5 HDL CHOLESTEROL 52 mg/dL 40-60 Aug 23, 2023 11:19 AM [facility] BASIC METABOLIC PANEL (fasting) Specimen Type: SERUM No comment entered. Ordering Provider: NERI MANCERA Report Released Date/Time: Aug 20, 2023 07:51 PM Reporting Lab: [address] [address] Performing Lab: [address] [address] UREA NITROGEN 26 mg/dL H 7-25 GLUCOSE 120 mg/dL H 65-100 SODIUM 142 mmol/L 135-145 POTASSIUM 5.0 mmol/L 3.5-5.0 CHLORIDE 112 mmol/L H 100-110 CO2 25 meq/L 20-30 CREATININE, Serum 1.90 mg/dL H 0.50-1.40 eGFR(CKD-EPI 2020) 34 mL/min L >60 Aug 23, 2023 11:19 AM [facility] LIVER FUNCTION Specimen Type: SERUM No comment entered. Ordering Provider: NERI MANCERA Report Released Date/Time: Aug 20, 2023 07:51 PM Reporting Lab: [facility] [address] [facility] [address] Performing Lab: [address] [address] PROTEIN,TOTAL 6.3 g/dL 6.0-8.3 ALBUMIN 3.6 g/dL 3.5-5.0 ALKALINE PHOSPHATASE 66 U/L 40-150 AST 14 U/L 5-34 ALT 14 U/L BILIRUBIN, TOTAL 0.6 mg/dL 0.2-1.2 Aug 23, 2023 11:19 AM [facility] HEMOGLOBIN A1C PANEL Specimen Type: BLOOD [...] Aug 20, 2023 07:51 PM Reporting Lab: [address] [address] Performing Lab: [address] [address] HEMOGLOBIN A1C 6.3 H 4.0-5.6 Aug 23, 2023 11:19 AM [facility] CBC AND DIFF (AUTO) Specimen Type: BLOOD No comment entered. Ordering Provider: NERI MANCERA Report Released Date/Time: Aug 20, 2023 07:51 PM Reporting Lab: [address] [address] Performing Lab: [address] [address] WBC 7.43 10*3/uL 4.50-11.00 RBC 4.21 10*6/uL L 4.23-5.66 HGB 13.6 g/dL 12.8-17 HCT 40.0 39.2-50.4 MCV 95.0 fL 82-99 MCHC 34.0 g/dL 30.8-35.1 PLT 165 10*3/uL 140-360 RDW-CV 14.3 12.0-16.0 [place], Abs 0.72 10*3/uL 0.30-1.10 MCH 32.3 pg [...] 10*3/uL 0.00-0.06 Aug 23, 2023 11:19 AM [facility] URIC ACID Specimen Type: SERUM No comment entered. Ordering Provider: NERI MANCERA Report Released Date/Time: Aug 20, 2023 07:51 PM Reporting Lab: [address] [address] Performing Lab: [address] [address] URIC ACID 3.0 mg/dL L 3.5-7.2 Aug 23, 2023 11:19 AM [facility] MICROALBUMIN CREATININE RATIO PANEL Specimen Type: URINE No comment entered. Ordering Provider: NERI MANCERA Report Released Date/Time: Aug 20, 2023 07:51 PM Reporting Lab: [facility] [address] [facility] [address] Performing Lab: [address] [address] MICROALBUMIN/C REATININE RATIO canc mg/g 0-29.9 MICROALBUMIN,Q UANTITATIVE < 0.5 mg/dL RR UNAVAIL CREATININE URINE 108.02 mg/dL Aug 23, 2023 11:19 AM [facility] URINALYSIS CLEAN CATCH Specimen Type: URINE Comment: If Glucose = >500 and Ketones are positive, please alert the Physician. Ordering Provider: NERI MANCERA Report Released Date/Time: Aug 20, 2023 07:51 PM Reporting Lab: [facility] [address] [facility] [address] Performing Lab: [facility] [address] [facility] [address] UA COLOR Light-Yellow Yellow UA APPEARANCE Clear [...] Elena armijo Apr 26, 2023 10:00 AM [place]-TOBAC[place] FORMER USER [facility] Tobacco Use History This section includes a history of the smoking, or tobacco-related health factors, that were collected on or before the date of the Encounter. The data comes from the [place] facility where the Encounter took place. Date/Time Smoking Status/Tobacco Use Comment F acshahbaz Apr 26, 2023 10:00 AM [place]-TO[place] QUIT 15 YRS OR MORE [facility] Mar 30, 2022 11:00 AM [place]TO[place]AC[place] FORMER USER [facility] Mar 30, 2022 11:00 AM [place] QUIT 15 YRS OR MORE [facility] Mar 17, 2021 01:30 PM [place]-TOBACCO FORMER USER [facility] [place] [facility] Mar 17, 2021 01:30 PM [place]-TOBACCO NEVER USED [facility] [place] [facility] Mar 17, 2021 01:30 PM VA-TOBACCO QUIT 15 YRS OR MORE [facility] [place] [facility] Mar 31, 2020 10:30 AM [place]-TOBACCO FORMER USER [facility] [place] [facility] Mar 31, 2020 10:30 AM VA-TOBACCO QUIT 15 YRS OR MORE [facility] [place] [facility] Nov 23, 2018 12:07 PM VA-TOBACCO FORMER USER [facility] [place] [facility] Nov 23, 2018 12:07 PM VA-TOBACCO QUIT 15 YRS OR MORE [facility] [place] [facility] Nov 22, 2017 10:02 AM VA-TOBACCO NEVER USED [facility] [place] [facility] Mar 14, 2017 09:31 AM LIFETIME NON-TOBACCO USER [facility] [place] [facility] Mar 01, 2016 02:51 PM LIFETIME NON-TOBACCO USER [facility] [place] [facility] Feb 10, 2015 09:31 AM QUIT TOBACCO USE > 7 YEARS AGO quit in 1964 [place] [facility] [place] [facility] Encounter Notes: All associated encounter notes This section contains the clinical notes associated to the Encounter. Date/Time Encounter Note(s) Provider Source Sep 18, 2023 10:46 AM ADMINISTRATIVE NOT E: LOCAL TITLE: CCC: SCHEDULING ADMINISTRATION STANDARD TITLE: ADMINISTRATIVE NOTE DATE OF NOTE: SEP 18, 2023@10:46 ENTRY DATE: SEP 18, 2023@10:46:01 AUTHOR: YADI YAO COSIGNER: URGENCY: STATUS: COMPLETED CCC: SCHEDULING ADMINISTRATION Has ADDENDA Patient Demographics Patient Name: JACQUELYN BROWN Patient Primary Phone: [phone] Patient Primary Address: [facility] [place] [address] Patient : 1940 Patient Age: 83 Caller/Recipient Relation to Patient: Self Administrative Administrative Note Reason: Medication Renewal [facility] Medic[facility] Refill/Renewal Request: Rx # - Medication Name - Dosage - SIG - Number of Refills - Facility - Status [id number] - ALLOPURINOL 300MG TAB - 1 TABLET - TAKE ONE TABLET BY MOUTH ONCE DAILY FOR GOUT - 0 - [facility] - 631 - [id number] - INSULIN SYRINGE 0.5ML 31G 6MM - 1 SYRINGE - USE 1 SYRINGE SUBCUTANEOUSLY TWICE DAILY FOR INSULIN INJECTIONS DIRECTED BY PROVIDER - 3 - [facility] - 631 - DISCONTINUED /es/ YADI YAO amsa Signed: 09/18/2023 10:46 Receipt Acknowledged By: 09/18/2023 11:32 /es/ Jeanette Garcia RN, BSN Primary Care 09/18/2023 16:42 /es/ Neri Mancera MD Staff Physician 09/18/2023 13:29 /es/ ALEXANDRA SHELL LPN LPN 09/18/2023 ADDENDUM STATUS: COMPLETED Done. /cas/ Neri Mancera MD Staff Physician Signed: 09/18/2023 16:42 YADI YAO [facility]
--- OUTSIDE RECORDS SUMMARY | 2024-03-20 13:59 | XMS_ITS ---
Author Name [facility] [place] [facility] [place] Address [address] [place] [address] Care Team Providers Care Library Services Assistant Name Role Phone NERI MANCERA Primary Care [...] [place] [employer] VAIBHAV Александр Mar 13, 2015 [id number] VERONICA BROWN RT PATIENT MEDICARE (WNR) MEDICARE (M) PART B Aug 12, 2007 PART B [id number] VERONICA BROWN RT PATIENT MEDICARE (WNR) MEDICARE (M) PART A Jan 12, 2004 PART A [id number] VERONICA BROWN RT PATIENT Selected Encounter This section includes the information on record at [place] for the Encounter. Date/Time Encounter Type Encounter Description Reason Provider Source Sep 01, 2023 11:30 AM OFFICE O/P EST SF 10 MIN PRIMARY CARE/MEDICINE ICD-10-CM E11.9 Type 2 diabetes mellitus without complications NERI MANCERA [facility] Encounter Template Text not used by [place] Assessments - Encounter Diagnoses This section includes the primary and secondary diagnoses documented for the Encounter. Date/Time Primary/Secondary Diagnosis Diagnosis Name Provider Source Sep 26, 2023 10:28 AM PRIMARY Type 2 diabetes mellitus without complications NERI MANCERA [place] [facility] [place] [facility] Sep 26, 2023 10:28 AM SECONDARY Encounter for immunization NIKKO SHELL [place] [facility] [place] [facility] Plan of Treatment: Future Appointments (+ 6 months) and Future Tests (+/- 45 days) The Plan of Treatment section includes future care activities for the patient from all [place] treatmentfacilities. This section includes future appointments and future orders which are active, pending or scheduled. Future Appointments This section includes appointments that were scheduled to occur 6 months from the date of the Encounter, up to a maximum of 20 appointments. The data comes from all [place] treatment facilities. Appointment Date/Time Appointment Type Appointme nt Facility Name Sep 11, 2023 02:30 PM AM[place]ULATORY [place]IC[place] [facility] [place] [facility] Sep 15, 2023 10:30 AM [place]ULAT[place] [facility] [place] [facility] Oct 02, 2023 09:30 AM AM[place]ULATORY [place] [facility] [place] [facility] Oct 04, 2023 10:00 AM AMBULATORY [place]ICINE [place] [facility] [place] [facility] Oct 11, 2023 09:00 AM AM[facility]ULATORY [facility]ICINE [place] [facility] [place] [facility] Oct 18, 2023 10:00 AM AMBULATORY - MEDICINE [facility] [place] [facility] Oct 30, 2023 09:00 AM AMBULATORY - MEDICINE [facility] [place] [facility] Nov 06, 2023 01:00 PM AMBULATORY - MEDICINE [facility] [place] [facility] Nov 20, 2023 09:30 AM AMBULATORY - MEDICINE [facility] [place] [facility] Dec 18, 2023 09:30 AM AMBULATORY - MEDICINE [facility] [place] [facility] Dec 27, 2023 02:00 PM AMBULATORY - MEDICINE [facility] [place] [facility] Dec 29, 2023 01:30 PM [place]ULATORY [place] [facility] [place] [facility] Jan 01, 2024 02:30 PM AM[place]ULATORY [place] [facility] [place] [facility] Jan 08, 2024 03:30 PM AM[place]ULATORY [place] [facility] [place] [facility] Jan 29, 2024 10:30 AM AMBULATORY [place]ICINE [place] [facility] [place] [facility] Jan 30, 2024 03:30 PM AMBULATORY [place]INE [place] [facility] [place] [facility] 2024 02:30 PM AMBULATORY [place]ICINE [place] [facility] [place] [facility] Feb 05, 2024 11:00 AM AMBULATORY [place]ICINE [place] [facility] [place] [facility] Feb 06, 2024 03:00 PM AM[place]ULATORY [place] [facility] [place] [facility] Feb 09, 2024 02:00 PM [facility] Lab Results: +/- 30 days of the encounter This section includes the Chemistry and Hematology Lab Results on record with [place] for the patient. Radiology Reports and Pathology Reports are provided separately, in subsequent sections. Lab Results This section contains the Chemistry/Hematology Results that were resulted 30 days before or 30 daysafter the date of the Encounter. Date/Time Source Result Type Result - Unit Interpretation Reference Range Comment Aug 23, 2023 11:19 AM [facility] BASIC METABOLIC PANEL (fasting) Specimen Type: SERUM No comment entered. Ordering Provider: NERI MANCERA Report Released Date/Time: Aug 20, 2023 07:51 PM Reporting Lab: [address] [address] Performing Lab: [facility] [address] [address] UREA NITROGEN 26 mg/dL H 7-25 GLUCOSE 120 mg/dL H 65-100 SODIUM 142 mmol/L 135-145 POTASSIUM 5.0 mmol/L 3.5-5.0 CHLORIDE 112 mmol/L H 100-110 CO2 25 meq/L 20-30 CREATININE, Serum 1.90 mg/dL H 0.50-1.40 eGFR(CKD-EPI 2020) 34 mL/min L >60 Aug 23, 2023 11:19 AM [facility] TSH Specimen Type: SERUM No comment entered. Ordering Provider: NERI MANCERA Report Released Date/Time: Aug 20, 2023 07:51 PM Reporting Lab: [facility] [address] [address] Performing Lab: [address] [address] TSH 1.38 u[IU]/mL 0.35-5.00 Aug 23, 2023 11:19 AM [facility] LIPID PANEL FASTING Specimen Type: SERUM No comment entered. Ordering Provider: NERI MANCERA Report Released Date/Time: Aug 20, 2023 07:51 PM Reporting Lab: [address] [address] Performing Lab: [address] [address] CHOLESTEROL 130 mg/dL TRIGLYCERIDE 120 mg/dL 0-150 LDL calculated 54 mg/dL 0-129 CHOL/HDL 2.5 HDL CHOLESTEROL 52 mg/dL 40-60 Aug 23, 2023 11:19 AM [facility] LIVER FUNCTION Specimen Type: SERUM No comment entered. Ordering Provider: NERI MANCERA Report Released Date/Time: Aug 20, 2023 07:51 PM Reporting Lab: [address] [address] Performing Lab: [address] [address] PROTEIN,TOTAL 6.3 g/dL 6.0-8.3 ALBUMIN 3.6 g/dL 3.5-5.0 ALKALINE PHOSPHATASE 66 U/L 40-150 AST 14 U/L 5-34 ALT 14 U/L BILIRUBIN, TOTAL 0.6 mg/dL 0.2-1.2 Aug 23, 2023 11:19 AM [facility] HEMOGLOBIN A1C PANEL Specimen Type: BLOOD [...] Aug 20, 2023 07:51 PM Reporting Lab[facility] [address] [address] Performing Lab: [facility] [address] [address] HEMOGLOBIN A1C 6.3 H 4.0-5.6 Aug 23, 2023 11:19 AM [facility] URIC ACID Specimen Type: SERUM No comment entered. Ordering Provider: NERI MANCERA Report Released Date/Time: Aug 20, 2023 07:51 PM Reporting Lab: [facility] [address] [address] Performing Lab: [facility] [address] [address] URIC ACID 3.0 mg/dL L 3.5-7.2 Aug 23, 2023 11:19 AM [facility] MICROALBUMIN CREATININE RATIO PANEL Specimen Type: URINE No comment entered. Ordering Provider: NERI MANCERA Report Released Date/Time: Aug 20, 2023 07:51 PM Reporting Lab: [facility] [address] [address] Performing Lab: [facility] [address] [address] MICROALBUMIN/C REATININE RATIO canc mg/g 0-29.9 MICROALBUMIN,Q UANTITATIVE < 0.5 mg/dL RR UNAVAIL CREATININE URINE 108.02 mg/dL Aug 23, 2023 11:19 AM [facility] CBC AND DIFF (AUTO) Specimen Type: BLOOD No comment entered. Ordering Provider: NERI MANCERA Report Released Date/Time: Aug 20, 2023 07:51 PM Reporting Lab: [facility] [address] [address] Performing Lab: [facility] [address] [address] WBC 7.43 10*3/uL 4.50-11.00 RBC 4.21 10*6/uL L 4.23-5.66 HGB 13.6 g/dL 12.8-17 HCT 40.0 39.2-50.4 MCV 95.0 fL 82-99 MCHC 34.0 g/dL 30.8-35.1 PLT 165 10*3/uL 140-360 RDW-CV 14.3 12.0-16.0 Doddridge, Abs 0.72 10*3/uL 0.30-1.10 MCH 32.3 pg [...] 10*3/uL 0.00-0.06 Aug 23, 2023 11:19 AM [facility] URINALYSIS CLEAN CATCH Specimen Type: URINE Comment: If Glucose = >500 and Ketones are positive, please alert the Physician. Ordering Provider: NERI MANCERA Report Released Date/Time: Aug 20, 2023 07:51 PM Reporting Lab: [address] [address] Performing Lab: [address] [address] UA COLOR Light-Yellow Yellow UA APPEARANCE Clear Clear UA GLUCOSE NEGATIVE mg/dL Negative UA KETONES NEGATIVE mg/dL Negative UA BLOOD NEGATIVE mg/dL Negative UA PROTEIN 20 mg/dL Negative UA NITRITE NEGATIVE mg/dL Negative UA BILIRUBIN NEGATIVE mg/dL Negative UA SPECIFIC GRAVITY 1.018 1.016-1.02 2 UA pH 6.0 5.0-9.0 UA UROBILINOGEN <2.0 mg/dL <2.0 UA LEUKOCYTE NEGATIVE Negative Vital Signs: All taken on the encounter date This section contains inpatient and outpatient Vital Signs collected on the date of the Encounter. Date/Time Temperature Pulse Blood Pressure Respiratory Rate SP02 Pain Height Weight Body Mass Index Source Sep 01, 2023 11:18 AM 98.2 64 132/82 16 96 0 68 224.9 34 [place] [facility] [place] [facility] Immunizations: All administered on the encounter date This section contains immunizations associated to the Encounter. Immunization Series Date Issued Reaction Comments COVID-19 (MODERNA), MRNA, LN P-S, PF, 50 MCG/0.5 ML (AGES 12+ YEARS) 6 Sep 01, 2023 Social History: Smoking Status (Most current) and Tobacco Use (All prior to encounter date) This section includes the most current, and the historical, smoking and tobacco- related health factors from the [place] facility where the Encounter took place. Current Smoking Status This section includes the most current smoking, or tobacco-related health factor, from the [place] facility where the Encounter took place. Date/Time Current Smoking Status Comment María Elena armijo Apr 26, 2023 10:00 AM VA-TOBACCO FORMER USER [place] [facility] [place] [facility] Tobacco Use History This section includes a history of the smoking, or tobacco-related health factors, that were collected on or before the date of the Encounter. The data comes from the [place] facility where the Encounter took place. Date/Time Smoking Status/Tobacco Use Comment aGmaliel landin Apr 26, 2023 10:00 AM VA-TOBACCO QUIT 15 YRS OR MORE [facility] [place] [facility] Mar 30, 2022 11:00 AM VA-TOBACCO FORMER USER [facility] [place] [facility] Mar 30, 2022 11:00 AM VA-TOBACCO QUIT 15 YRS OR MORE [facility] [place] [facility] Mar 17, 2021 01:30 PM VA-TOBACCO FORMER USER [facility] [place] [facility] Mar 17, 2021 01:30 PM VA-TOBACCO NEVER USED [facility] [place] [facility] Mar 17, 2021 01:30 PM VA-TOBACCO QUIT 15 YRS OR MORE [facility] [place] [facility] Mar 31, 2020 10:30 AM VA-TOBACCO FORMER USER [facility] [place] [facility] Mar 31, 2020 10:30 AM VA-TOBACCO QUIT 15 YRS OR MORE [facility] [place] [facility] Nov 23, 2018 12:07 PM VA-TOBACCO FORMER USER [facility] [place] [facility] Nov 23, 2018 12:07 PM VA-TOBACCO QUIT 15 YRS OR MORE [facility] [place] [facility] Nov 22, 2017 10:02 AM VA-TOBACCO NEVER USED [facility] [place] [facility] Mar 14, 2017 09:31 AM LIFETIME NON-TOBACCO USER [facility] [place] [facility] Mar 01, 2016 02:51 PM LIFETIME NON-TOBACCO USER [facility] [place] [facility] Feb 10, 2015 09:31 AM QUIT TOBACCO USE > 7 YEARS AGO [place] in 1963 [place] [facility] [place] [facility] Encounter Notes: All associated encounter notes This section contains the clinical notes associated to the Encounter. Date/Time Encounter Note(s) Provider Source Sep 01, 2023 12:05 PM PHYSICIAN NOTE: LOCAL TITLE: MD NOTE STANDARD TITLE: PHYSICIAN NOTE DATE OF NOTE: SEP 01, 2023@12:05 ENTRY DATE: SEP 01, 2023@12:05:56 AUTHOR: NERI MANCERA EXP COSIGNER: URGENCY: STATUS: COMPLETED Patient Name: JACQUELYN BROWN VITALS: Patient temperature: 98.2 F [36.8 C] (09/01/2023 11:18) Blood pressure: 132/82 (09/01/2023 11:18) Patient height: 68 in [172.7 cm] (09/01/2023 11:18) Patient weight: 224.9 lb [102.01 kg] (09/01/2023 11:18) Patient BMI: BMI: 34.3 Patient pulse: 64 (09/01/2023 11:18) Patient respiration: 16 (09/01/2023 11:18) Patient Pulse Oximetry: 96% (09/01/2023 11:18) Pain Ratin (09/01/2023 11:18) Active [facility] Medications: Active Outpatient Medications (including [...] MOUTH ACTIVE EVERY DAY 16 Total Medications Remote Medications: No 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 Home blood sugars are running 80-130. No episodes of hypoglycemia. Mildly overweight. sometimes makes inappropriate food choices for shopping or cooking. Review of systems No chest pain or dyspnea No abdominal pain No trouble urinating No fever or chills No cough Physical examination Well-developed well-nourished male in no acute distress Coronary no murmur Lungs clear No edema MICROALB/CR RATIO: canc MICROALBUMIN URINE: < 0.5 CREATININE URINE: 108.02 Color, Urine (AX 4280): Light-Yellow Appearance, Urine (AX 4280): Clear Glucose, Urine (AX 4280): NEGATIVE Ketones, Urine (AX 4280): NEGATIVE Blood, Urine (AX 4280): NEGATIVE Protein, Urine (AX 4280): 20 Nitrite, Urine (AX 4280): NEGATIVE Bilirubin, Urine (AX 4280): NEGATIVE Specific [place], (AX 4280): 1.018 pH, Urine (GF2154): 6.0 Urobilinogen, Urine (AX 4280): <2.0 Leukocyte Esterase, (AX 4280): NEGATIVE GLUCOSE: 120 H UREA NITROGEN: 26 H SODIUM: 142 POTASSIUM: 5.0 CHLORIDE: 112 H CO2: 25 URIC ACID: 3.0 L CHOLESTEROL: 130 PROTEIN,TOTAL: 6.3 ALBUMIN: 3.6 ALKALINE PHOSPHATASE: 66 SGOT: 14 SGPT: 14 TRIGLYCERIDE: 120 LDL CHOL: 54 CHOL/HDL RATIO: 2.5 HDL: 52 BILIRUBIN,TOT.: 0.6 TSH (Access): 1.38 CREATININE-EGFR: 1.90 H eGFR CKD-EPI 2020: 34 L HGB A1C (WR): 6.3 H WBC: 7.43 RBC: 4.21 L HGB: 13.6 HCT: 40.0 MCV: 95.0 MCHC: 34.0 RDW: 14.3 PLT: 165 MCH: 32.3 Neut %: 59.5 Lymph %: 24.2 Doddridge %: 9.7 Eos %: 5.9 Baso %: 0.3 Neut, Abs: 4.42 Lymph, Abs: 1.80 Doddridge, Abs: 0.72 Eos, Abs: 0.44 Baso, Abs: 0.02 Immature Granulocytes %: 0.4 Immature Granulocytes, Abs: 0.03 I discussed above test results with patient Assessment and plan: 1. Diabetes mellitus: Hemoglobin A1c well controlled on present dose of insulin. Patient considering Ozempic conversion Plan: Pharmacy consult for above Follow-up 4 months clinic visit and lab Medication Reconciliation: Outpatient: Has the patient been taking medications as documented in the EMLR? YES: The patient has been taking medications as documented in the EMLR. Essential Medication List for Review used to complete this medication reconciliation. INCLUDED IN THIS LIST: Alphabetical list of active outpatient prescriptions dispensed from this [place] (local) and dispensed from another [place] or [facility] facility (remote) as well as inpatient orders [...] whether with a VA or non-VA provider. /es/ Neri Mancera MD Staff Physician Signed: 09/01/2023 12:08 NERI MANCERA [place] [facility] [place] [facility] Sep 01, 2023 11:22 AM PREVENTIVE MEDICINE NURSING NOTE: LOCAL TITLE: CLINICAL REMINDERS/NURSING STANDARD TITLE: PREVENTIVE MEDICINE NURSING NOTE DATE OF NOTE: SEP 01, 2023@11:22 ENTRY DATE: SEP 01, 2023@11:22:34 AUTHOR: ALEXANDRA SHELL EXP COSIGNER: URGENCY: STATUS: COMPLETED CLINICAL REMINDERS/NURSING Has ADDENDA Sexual Orientation: The patient thinks of their sexual orientation as: Straight or Heterosexual Prefer not to answer Falls & Incontinence Screen: Falls Screen: During the past 12 months, did the patient report any falls? 1. One fall with no injury. Incontinence Screen: During the past 12 months, has the patient has any characteristics of incontinence (ability, voiding, leakage, etc.)? YES - Incontinence is a problem for this patient. Is urinary incontinence NEW for this patient? NO - Incontinence is NOT a new problem. What is the current treatment? nothing at this time /cas/ ALEXANDRA SHELL LPN LPN Signed: 09/01/2023 11:26 09/01/2023 ADDENDUM STATUS: COMPLETED COVID-19 Immunization: Moderna Monovalent (Spikevax) Administered: COVID-19 (MODERNA), MRNA, LNP-S, PF, 50 MCG/0.5 ML (AGES 12+ YEARS) Date Administered: Sep 01, 2023 11:30 Series: Series 6 [employer] Operator: [employer]. Lot: [id number] Exp Date: Jan 08, 2024 [facility]: [phone] Admin Route/Site: INTRAMUSCULAR/RIGHT DELTOID Dosage: 0.5mL Vaccine Information Statement(s): COVID-19 MRNA VACCINE (12+ YRS) VACCINE VIS Dec 29, 2022 ([place]) Order By: Policy Administered By: Alexandra Shell Vaccine administered without complications. /cas/ ALEXANDRA SHELL LPN LPN Signed: 09/01/2023 13:00 ALEXANDRA SHELL [facility]
--- OUTSIDE RECORDS SUMMARY | 2024-03-20 13:59 | XMS_ITS ---
Author Name [facility] [facility] [place] [facility] [place] Address [address] [place] [address] Care Team Providers Care Loan Officer Name Role Phone SOFI MANCERA Primary [...] Policy [place] MED[place] SUPPLEMEN [facility]ARY D[facility] Александр Mar 13, 2015 [id number] VERONICA BROWN RT PATIENT MEDICARE (WNR) MEDICARE (M) PART B Aug 12, 2007 PART B [id number] VERONICA BROWN RT PATIENT MEDICARE (WNR) MEDICARE (M) PART A Jan 12, 2004 PART A [id number] VERONICA BROWN RT PATIENT Selected Encounter This section includes the information on record at [place] for the Encounter. Date/Time Encounter Type Encounter Description Reason Provider Source Sep 12, 2023 03:51 PM QNHP OL DIG ASSMT&MGMT 5-10 CLINICAL PHARMACY ICD-10-CM E11.9 Type 2 diabetes mellitus without complications ARTEM BYRNE IHE Encounter Template Text not used by [place] Assessments - Encounter Diagnoses This section includes the primary and secondary diagnoses documented for the Encounter. Date/Time Primary/Secondary Diagnosis Diagnosis Name Provider Source Oct 12, 2023 08:18 AM PRIMARY Type 2 diabetes mellitus without complications RUTHHELADIOARTEM [facility] [place] [facility] Plan of Treatment: Future Appointments (+ 6 [...] C [facility] [place] [facility] Oct 02, 2023 09:30 AM AMBULATORY - MEDICINE [place] [facility] [place] [facility] Oct 04, 2023 10:00 AM AMBULATORY - MEDICINE [place] [facility] [place] [facility] Oct 11, 2023 09:00 AM AMBULATORY - MEDICINE [place] [facility] [place] [facility] Oct 18, 2023 10:00 AM AMBULATORY - MEDICINE [place] [facility] [place] [facility] Oct 30, 2023 09:00 AM AMBULATORY - MEDICINE [place] [facility] [place] [facility] Nov 06, 2023 01:00 PM AMBULATORY - MEDICINE [place] [facility] [place] [facility] Nov 20, 2023 09:30 AM AMBULATORY - MEDICINE [place] [facility] [place] [facility] Dec 18, 2023 09:30 AM AMBULATORY - MEDICINE [place] [facility] [place] [facility] Dec 27, 2023 02:00 PM AMBULATORY - MEDICINE [facility] [place] [facility] Dec 29, 2023 01:30 PM AMBULATORY - MEDICINE [facility] [place] [facility] Jan 01, 2024 02:30 PM AMBULATORY - MEDICINE [place] [facility] [place] [facility] Jan 08, 2024 03:30 PM AMBULATORY - MEDICINE [facility] [place] [facility] Jan 29, 2024 10:30 AM AMBULATORY - MEDICINE [facility] [place] [facility] Jan 30, 2024 03:30 PM [facility]ATORY [facility]INE [facility] [place] [facility] 2024 02:30 PM [facility]ULAT[facility]INE [facility] [place] [facility] Feb 05, 2024 11:00 AM [facility]ULAT[facility] [place] [facility] Feb 06, 2024 03:00 PM [place] [facility] [place] [facility] Feb 09, 2024 02:00 PM [place] [facility] [place] [facility] Feb 12, 2024 11:00 AM [place] [facility] [place] [facility] Lab Results: +/- 30 days of the [...] Range Comment Oct 04, 2023 11:44 AM [place] [facility] [place] [facility] FERRITIN Specimen Type: SERUM No comment entered. Ordering Provider: ALYCIA STEVENS Report Released Date/Time: May 09, 2023 11:25 AM Reporting Lab: [place] [facility] [place] [address] [address] Performing Lab: [place] [facility] [place] [address] [address] FERRITIN 73 ng/mL 20-300 Oct 04, 2023 11:44 AM [place] [facility] [place] [facility] CBC Specimen Type: BLOOD No comment entered. Ordering Provider: ALYCIA STEVENS Report Released Date/Time: May 09, 2023 11:25 AM Reporting Lab: [place] [facility] [place] [facility] [address] [facility] [address] Performing Lab: [place] [facility] [place] [address] [address] WBC 7.68 10*3/uL 4.50-11.00 RBC 4.42 10*6/uL 4.23-5.66 HGB 14.1 g/dL 12.8-17 HCT 42.3 39.2-50.4 MCV 95.7 fL 82-99 MCHC 33.3 g/dL 30.8-35.1 PLT 160 10*3/uL 140-360 RDW-CV 14.2 12.0-16.0 MCH 31.9 pg 26.2-32.6 Oct 04, 2023 11:44 AM [facility] MICROALBUMIN CREATININE RATIO PANEL Specimen Type: URINE No comment entered. Ordering Provider: ALYCIA STEVENS A Report Released Date/Time: May 09, 2023 11:25 AM Reporting Lab: [facility] [address] [address] Performing Lab: [facility] [address] MICROALBUMIN/C REATININE RATIO 89.0 mg/g H 0-29.9 MICROALBUMIN,Q UANTITATIVE 7.5 mg/dL RR UNAVAIL CREATININE URINE 84.27 mg/dL Oct 04, 2023 11:44 AM [facility] IRON & TIBC PANEL Specimen Type: SERUM No comment entered. Ordering Provider: ALYCIA STEVENS Report Released Date/Time: May 09, 2023 11:25 AM Reporting Lab: [facility] [address] Performing Lab: [facility] [address] TIBC 342 ug/dL 204-475 IRON 96 ug/dL 40-160 Transferrin Saturation 28.1 20.0-50.0 Oct 04, 2023 11:44 AM [facility] BASIC METABOLIC PANEL (non-fasting) Specimen Type: SERUM No comment entered. Ordering Provider: ALYCIA STEVENS Report Released Date/Time: May 09, 2023 11:25 AM Reporting Lab: [facility] [address] Performing Lab: [facility] [address] UREA NITROGEN 24 mg/dL 7-25 GLUCOSE 80 mg/dL 65-100 SODIUM 142 mmol/L 135-145 POTASSIUM 4.7 mmol/L 3.5-5.0 CHLORIDE 109 mmol/L 100-110 CO2 25 meq/L 20-30 CREATININE, Serum 1.96 mg/dL H 0.50-1.40 eGFR(CKD-EPI 2020) 33 mL/min L >60 Aug 23, 2023 11:19 AM [facility] TSH Specimen Type: SERUM No comment entered. Ordering Provider: SOFI MANCERA Report Released Date/Time: Aug 20, 2023 07:51 PM Reporting Lab: [address] [address] Performing Lab: [address] [address] TSH 1.38 u[IU]/mL 0.35-5.00 Aug 23, 2023 11:19 AM [facility] LIVER FUNCTION Specimen Type: SERUM No comment entered. Ordering Provider: SOFI MANCERA Report Released Date/Time: Aug 20, 2023 07:51 PM Reporting Lab: [address] [address] Performing Lab: [address] [address] PROTEIN,TOTAL 6.3 g/dL 6.0-8.3 ALBUMIN 3.6 g/dL 3.5-5.0 ALKALINE PHOSPHATASE 66 U/L 40-150 AST 14 U/L 5-34 ALT 14 U/L BILIRUBIN, TOTAL 0.6 mg/dL 0.2-1.2 Aug 23, 2023 11:19 AM [facility] LIPID PANEL FASTING Specimen Type: SERUM No comment entered. Ordering Provider: SOFI MANCERA Report Released Date/Time: Aug 20, 2023 07:51 PM Reporting Lab: [address] [address] Performing Lab: [address] [address] CHOLESTEROL 130 mg/dL TRIGLYCERIDE 120 mg/dL 0-150 LDL calculated 54 mg/dL 0-129 CHOL/HDL 2.5 HDL CHOLESTEROL 52 mg/dL 40-60 Aug 23, 2023 11:19 AM [facility] BASIC METABOLIC PANEL (fasting) Specimen Type: SERUM No comment entered. Ordering Provider: SOFI MANCERA Report Released Date/Time: Aug 20, 2023 07:51 PM Reporting Lab: [facility] [address] [facility] [address] Performing Lab: [facility] [address] [facility] [address] UREA NITROGEN 26 mg/dL H 7-25 GLUCOSE 120 mg/dL H 65-100 SODIUM 142 mmol/L 135-145 POTASSIUM 5.0 mmol/L 3.5-5.0 CHLORIDE 112 mmol/L H 100-110 CO2 25 meq/L 20-30 CREATININE, Serum 1.90 mg/dL H 0.50-1.40 eGFR(CKD-EPI 2020) 34 mL/min L >60 Aug 23, 2023 11:19 AM [facility] HEMOGLOBIN A1C PANEL Specimen Type: BLOOD [...] Aug 20, 2023 07:51 PM Reporting Lab: [facility] [address] [facility] [address] Performing Lab: [address] [address] HEMOGLOBIN A1C 6.3 H 4.0-5.6 Aug 23, 2023 11:19 AM [facility] URIC ACID Specimen Type: SERUM No comment entered. Ordering Provider: SOFI MANCERA Report Released Date/Time: Aug 20, 2023 07:51 PM Reporting Lab: [address] [place] [address] Performing Lab: [facility] [address] [facility] [address] URIC ACID 3.0 mg/dL L 3.5-7.2 Aug 23, 2023 11:19 AM [facility] CBC AND DIFF (AUTO) Specimen Type: BLOOD No comment entered. Ordering Provider: SOFI MANCERA Report Released Date/Time: Aug 20, 2023 07:51 PM Reporting Lab: [facility] [address] [facility] [address] Performing Lab: [facility] [address] [facility] [address] WBC 7.43 10*3/uL 4.50-11.00 RBC 4.21 10*6/uL L 4.23-5.66 HGB 13.6 g/dL 12.8-17 HCT 40.0 39.2-50.4 MCV 95.0 fL 82-99 MCHC 34.0 g/dL 30.8-35.1 PLT 165 10*3/uL 140-360 RDW-CV 14.3 12.0-16.0 [place], Abs 0.72 10*3/uL 0.30-1.10 MCH 32.3 pg [...] 10*3/uL 0.00-0.06 Aug 23, 2023 11:19 AM [facility] MICROALBUMIN CREATININE RATIO PANEL Specimen Type: URINE No comment entered. Ordering Provider: SOFI MANCERA Report Released Date/Time: Aug 20, 2023 07:51 PM Reporting Lab: [address] [address] Performing Lab: [address] [address] MICROALBUMIN/C REATININE RATIO canc mg/g 0-29.9 MICROALBUMIN,Q UANTITATIVE < 0.5 mg/dL RR UNAVAIL CREATININE URINE 108.02 mg/dL Aug 23, 2023 11:19 AM [facility] URINALYSIS CLEAN CATCH Specimen Type: URINE Comment: If Glucose = >500 and Ketones are positive, please alert the Physician. Ordering Provider: SOFI MANCERA Report Released Date/Time: Aug 20, 2023 07:51 PM Reporting Lab: [address] [address] Performing Lab: [address] [address] UA COLOR Light-Yellow Yellow UA APPEARANCE Clear [...] 26, 2023 10:00 AM VA-[facility]BACCO FORMER USER [facility] Tobacco Use History This section includes [...] [facility] [place] [facility] Mar 30, 2022 11:00 AM VA-TOBACCO FORMER USER [facility] [place] [facility] Mar 30, 2022 11:00 AM VA-TOBACCO QUIT 15 YRS OR MORE [facility] [place] [facility] Mar 17, 2021 01:30 PM VA-TOBACCO FORMER USER [facility] [place] [facility] Mar 17, 2021 01:30 PM VA-TOBACCO NEVER USED [facility] [place] [facility] Mar 17, 2021 01:30 PM VA-TOBACCO QUIT 15 YRS OR MORE [facility] [place] [facility] Mar 31, 2020 10:30 AM VA-TOBACCO FORMER USER [facility] [place] [facility] Mar 31, 2020 10:30 AM VA-TOBACCO QUIT 15 YRS OR MORE [facility] [place] [facility] Nov 23, 2018 12:07 PM VA-TOBACCO FORMER USER [facility] [place] [facility] Nov 23, 2018 12:07 PM VA-TOBACCO QUIT 15 YRS OR MORE [facility] [place] [facility] Nov 22, 2017 10:02 AM VA-TOBACCO NEVER USED [facility] [place] [facility] Mar 14, 2017 09:31 AM LIFETIME NON-TOBACCO USER [facility] [place] [facility] Mar 01, 2016 02:51 PM LIFETIME NON-TOBACCO USER [facility] [place] [facility] Feb 10, 2015 09:31 AM QUIT TOBACCO USE > 7 YEARS AGO quit in [address] [place] [address] [facility] [place] [facility] Encounter Notes: All associated encounter notes This section contains the clinical notes associated to the Encounter. Date/Time Encounter Note(s) Provider Source Sep 12, 2023 03:51 PM PHARMACY CONSULT: LOCAL TITLE: CONSULT REPORT/PRIOR [facility] PADR STANDARD TITLE: PHARMACY CONSULT DATE OF NOTE: SEP 12, 2023@15:51 ENTRY DATE: SEP 12, 2023@15:52:02 AUTHOR: MARTHA BYRNE EXP COSIGNER: URGENCY: STATUS: COMPLETED The medical record has been reviewed with regard to this restricted drug request. Medication requested: SEMAGLUTIDE 0.25MG/0.375ML INJ PEN 3ML Medication indication: DM/obesity Medical history relevant to this request: Pt followed by [facility] for T2DM w/ h/o CKD. Currently on insulin glargine. A1c 6.3%, eGFR 34, TG wnl 08/23/23. BMI 34.3. Past trial of metformin resulted in GI AEs. Past trial of insulin aspart d/c'ed due to hypoglycemia. Past trial of empagliflozin d/c'ed due to nocturia/incontinence and h/o kidney stones/infx. Per consult: GLP-1RA would decrease insulin use, help pt lose weight, and provide renal benefit. Would adjust insulin glargine as needed if approved. Denies gastrointestinal issues, denies personal or family history of MENST2, hx of pancreatitis. Pt does not have know DME, NPDR etc. Per 04/24/23 optometry note History of diabetes without ocular manifestations Pt has HX of wet macular edema. Sees Non-VA opthamologist, Dr. Doll at [facility]. [employer] called for comment on GLP-1RA initiation. Dr. Doll does not see issue with initiation. The request is approved x 12 months - A documented contraindication exists to the preferred formulary alternative(s) - A documented adverse reaction occurred with the preferred formulary alternative(s) Please note, per VISN guidance, initial GLP-1 agonist approval is limited to 12 months. Continued approval is contingent upon documented clinical efficacy: 1. Must have repeat A1c and weight (If obtained from non-VA entity, must be documented in CPRS) 2. Consult renewal at 12 months, must meet the following criteria: - Documented continued need for secondary benefit in ASCVD or CKD - AND at least one of the following: - At least a 0.8% reduction in A1c, OR - At least 5% weight loss from baseline (before GLP-1 initiation), OR - Reduction in insulin doses with reduced incidence of hypoglycemia /es/ Martha Byrne, AnaD Clinical Medicine Tech Signed: 09/12/2023 15:58 MAR[facility]A BYRNE [place] [facility]
--- OUTSIDE RECORDS SUMMARY | 2024-03-20 13:59 | XMS_ITS ---
Author Name [facility] Organization [facility] Address [address] [place] [address] Care Team Providers Care Poured Wall Foreman Name Role Phone SOFI MANCERA Primary Care [...] [facility] CHARAN Haque Mar 13, 2015 [id number] VERONICA BROWN RT PATIENT MEDICARE (WNR) MEDICARE (M) PART B Aug 12, 2007 PART B [id number] VERONICA BROWN RT PATIENT MEDICARE (WNR) MEDICARE (M) PART A Jan 12, 2004 PART A [id number] VERONICA BROWN RT PATIENT Selected Encounter This section includes the information on record at [place] for the Encounter. Date/Time Encounter Type Encounter Description Reason Pro vider Source Sep 01, 2023 03:28 PM Outpatient Encounter ADMIN PAT ACTIVTIES (MASNONCT) IHE Encounter Template Text not used by [place] Plan of Treatment: Future Appointments (+ 6 months) and Future Tests (+/- 45 days) The Plan of Treatment section includes future care activities for the [facility] This section includes future appointments and future orders which are active, pending or scheduled. Future Appointments This section includes appointments that were scheduled to occur 6 months from the date of the Encounter, up to a maximum of 20 appointments. The data comes from all [place] treatment facilities. Appointment Date/Time Appointment Type Appointme nt Facility Name Sep 11, 2023 02:30 PM [facility] [place] [facility] Sep 15, 2023 10:30 AM [facility]UL[facility] [place] [facility] Oct 02, 2023 09:30 AM [facility]ULAT[facility] [place] [facility] Oct 04, 2023 10:00 AM AM[facility]ULATORY [facility] [place] [facility] Oct 11, 2023 09:00 AM AMBULATORY [facility] [place] [facility] Oct 18, 2023 10:00 AM [facility]UL[facility] [place] [facility] Oct 30, 2023 09:00 AM [facility]ULAT[facility] [place] [facility] Nov 06, 2023 01:00 PM AMBULATORY [facility] [place] [facility] Nov 20, 2023 09:30 AM AMBULATORY [facility] [place] [facility] Dec 18, 2023 09:30 AM [facility]ULAT[facility] [place] [facility] Dec 27, 2023 02:00 PM AMBULATORY [facility] [place] [facility] Dec 29, 2023 01:30 PM [facility]ULAT[facility] [place] [facility] Jan 01, 2024 02:30 PM AM[facility]ULATORY [facility] [place] [facility] Jan 08, 2024 03:30 PM AM[facility]ULAT[facility] [place] [facility] Jan 29, 2024 10:30 AM [facility]ULAT[facility] [place] [facility] Jan 30, 2024 03:30 PM AM[facility]ULATORY [facility] [place] [facility] 2024 02:30 PM AMBULATORY [facility] MEDIC[facility] [place] [facility] Feb 05, 2024 11:00 AM [facility] Feb 06, 2024 03:00 PM [facility] [place] [facility] Feb 09, 2024 02:00 PM [facility] Lab Results: +/- 30 days of the encounter This section includes the Chemistry and Hematology Lab Results on record with [place] for the patient. Radiology Reports and Pathology Reports are provided separately, in subsequent sections. Lab Results This section contains the Chemistry/Hematology Results that were resulted 30 days before or 30 daysafter the date of the Encounter. Date/Time Source Result Type Result - Unit Interpretation Reference Range Comment Aug 23, 2023 11:19 AM [facility] BASIC METABOLIC PANEL (fasting) Specimen Type: SERUM No comment entered. Ordering Provider: SOFI MANCERA Report Released Date/Time: Aug 20, 2023 07:51 PM Reporting Lab: [address] [address] Performing Lab: [address] [address] UREA NITROGEN 26 mg/dL H 7-25 GLUCOSE 120 mg/dL H 65-100 SODIUM 142 mmol/L 135-145 POTASSIUM 5.0 mmol/L 3.5-5.0 CHLORIDE 112 mmol/L H 100-110 CO2 25 meq/L 20-30 CREATININE, Serum 1.90 mg/dL H 0.50-1.40 eGFR(CKD-EPI 2020) 34 mL/min L >60 Aug 23, 2023 11:19 AM [facility] LIPID PANEL FASTING Specimen Type: SERUM No comment entered. Ordering Provider: SOFI MANCERA Report Released Date/Time: Aug 20, 2023 07:51 PM Reporting Lab: [address] [address] Performing Lab: [address] [address] CHOLESTEROL 130 mg/dL TRIGLYCERIDE 120 mg/dL 0-150 LDL calculated 54 mg/dL 0-129 CHOL/HDL 2.5 HDL CHOLESTEROL 52 mg/dL 40-60 Aug 23, 2023 11:19 AM [facility] LIVER FUNCTION Specimen Type: SERUM No comment entered. Ordering Provider: SOFI MANCERA Report Released Date/Time: Aug 20, 2023 07:51 PM Reporting Lab: [facility] [address] [facility] [address] Performing Lab: [facility] [address] [facility] [address] PROTEIN,TOTAL 6.3 g/dL 6.0-8.3 ALBUMIN 3.6 g/dL 3.5-5.0 ALKALINE PHOSPHATASE 66 U/L 40-150 AST 14 U/L 5-34 ALT 14 U/L BILIRUBIN, TOTAL 0.6 mg/dL 0.2-1.2 Aug 23, 2023 11:19 AM [facility] TSH Specimen Type: SERUM No comment entered. Ordering Provider: SOFI MANCERA Report Released Date/Time: Aug 20, 2023 07:51 PM Reporting Lab: [facility] [address] [facility] [address] Performing Lab: [facility] [address] [facility] [address] TSH 1.38 u[IU]/mL 0.35-5.00 Aug 23, 2023 11:19 AM [facility] HEMOGLOBIN A1C PANEL Specimen Type: BLOOD Comment: [...] Aug 20, 2023 07:51 PM Reporting Lab: [facility] [address] [facility] [address] Performing Lab: [address] [address] HEMOGLOBIN A1C 6.3 H 4.0-5.6 Aug 23, 2023 11:19 AM [facility] CBC AND DIFF (AUTO) Specimen Type: BLOOD No comment entered. Ordering Provider: SOFI MANECRA Report Released Date/Time: Aug 20, 2023 07:51 PM Reporting Lab: [facility] [address] [facility] [address] Performing Lab: [address] [address] WBC 7.43 10*3/uL 4.50-11.00 RBC 4.21 10*6/uL L 4.23-5.66 HGB 13.6 g/dL 12.8-17 HCT 40.0 39.2-50.4 MCV 95.0 fL 82-99 MCHC 34.0 g/dL 30.8-35.1 PLT 165 10*3/uL 140-360 RDW-CV 14.3 12.0-16.0 [place], Abs 0.72 10*3/uL 0.30-1.10 MCH 32.3 pg [...] 10*3/uL 0.00-0.06 Aug 23, 2023 11:19 AM [facility] URIC ACID Specimen Type: SERUM No comment entered. Ordering Provider: SOFI MANCERA Report Released Date/Time: Aug 20, 2023 07:51 PM Reporting Lab: [address] [address] Performing Lab: [address] [place] [address] URIC ACID 3.0 mg/dL L 3.5-7.2 Aug 23, 2023 11:19 AM [facility] MICROALBUMIN CREATININE RATIO PANEL Specimen Type: URINE No comment entered. Ordering Provider: SOFI MANCERA Report Released Date/Time: Aug 20, 2023 07:51 PM Reporting Lab: [address] [address] Performing Lab: [address] [address] MICROALBUMIN/C REATININE RATIO canc mg/g 0-29.9 MICROALBUMIN,Q UANTITATIVE < 0.5 mg/dL RR UNAVAIL CREATININE URINE 108.02 mg/dL Aug 23, 2023 11:19 AM [facility] URINALYSIS CLEAN CATCH Specimen Type: URINE Comment: If Glucose = >500 and Ketones are positive, please alert the Physician. Ordering Provider: SOFI MANCERA Report Released Date/Time: Aug 20, 2023 07:51 PM Reporting Lab: [address] [address] Performing Lab: [address] [address] UA COLOR Light-Yellow Yellow UA APPEARANCE Clear [...] 132/82 16 96 0 68 224.9 [address] [facility] Social History: Smoking Status (Most current) and Tobacco Use (All prior to encounter date) This section includes the most current, and the historical, smoking and tobacco- related health factors from the [place] facility where the Encounter took place. Current Smoking Status This section includes the most current smoking, or tobacco-related health factor, from the [place] facility where the Encounter took place. Date/Time Current Smoking Status Comment María Elena armijo Apr 26, 2023 10:00 AM VA-TOBACCO FORMER USER [place] [facility] [place] [facility] Tobacco Use History This section includes a history of the smoking, or tobacco-related health factors, that were collected on or before the date of the Encounter. The data comes from the [place] facility where the Encounter took place. Date/Time Smoking Status/Tobacco Use Comment Gamaliel landin Apr 26, 2023 10:00 AM VA-TOBACCO QUIT 15 YRS OR MORE [facility] [place] [facility] Mar 30, 2022 11:00 AM VA-TOBACCO FORMER USER [facility] [place] [facility] Mar 30, 2022 11:00 AM VA-TOBACCO QUIT 15 YRS OR MORE [facility] [place] [facility] Mar 17, 2021 01:30 PM VA-TOBACCO FORMER USER [facility] [place] [facility] Mar 17, 2021 01:30 PM VA-TOBACCO NEVER USED [facility] [place] [facility] Mar 17, 2021 01:30 PM VA-TOBACCO QUIT 15 YRS OR MORE [facility] [place] [facility] Mar 31, 2020 10:30 AM VA-TOBACCO FORMER USER [facility] [place] [facility] Mar 31, 2020 10:30 AM VA-TOBACCO QUIT 15 YRS OR MORE [facility] [place] [facility] Nov 23, 2018 12:07 PM VA-TOBACCO FORMER USER [facility] [place] [facility] Nov 23, 2018 12:07 PM VA-TOBACCO QUIT 15 YRS OR MORE [facility] [place] [facility] Nov 22, 2017 10:02 AM VA-TOBACCO NEVER USED [facility] [place] [facility] Mar 14, 2017 09:31 AM LIFETIME NON-TOBACCO USER [facility] [place] [facility] Mar 01, 2016 02:51 PM LIFETIME NON-TOBACCO USER [facility] [place] [facility] Feb 10, 2015 09:31 AM QUIT TOBACCO USE > 7 YEARS AGO quit in 1964 [facility] Encounter Notes: All associated encounter notes This section contains the clinical notes associated to the Encounter. Date/Time Encounter Note(s) Provider Source Sep 01, 2023 03:28 PM ADMINISTRATIVE NOTE: LOCAL TITLE: CCC: SCHEDULING ADMINISTRATION STANDARD TITLE: ADMINISTRATIVE NOTE DATE OF NOTE: SEP 01, 2023@15:28:49 ENTRY DATE: SEP 01, 2023@15:28:50 AUTHOR: SARTHAK OTTO EXP COSIGNER: URGENCY: STATUS: COMPLETED Patient Demographics Patient Name: JACQUELYN BROWN Patient Primary Phone: [phone] Patient Primary Address: [address] [place] [id number] Patient : 1940 Patient Age: 83 Call Back Number: Caller/Recipient Relation to Patient: Self Administrative Administrative Note Reason: Other Administrative Note Comments: Patient has no lab orders which fall within the expected collection guidelines for his 01/01/24 PCP appointment. If the patient requires lab work, please place an order. If labs are no longer required, please ensure the patient is contacted. /cas/ SARTHAK OTTO VISN1 [facility] AMSA Signed: 09/01/2023 15:28 Receipt Acknowledged By: 09/05/2023 09:10 /es/ Jeanette Garcia RN, BSN Primary Care 09/05/2023 10:57 /es/ ALEXANDRA SHELL, CMA SARTHAK MATHIS [facility]
--- OUTSIDE RECORDS SUMMARY | 2024-03-20 13:59 | XMS_ITS | Encounter Summary ---
Author Name [facility] [place] [facility] [place] Address [address] [place] [address] Care Team Providers Care Electronic Bench Technician Name Role Phone SOFI MANCERA Primary Care [...] Policy [place] JONELLE ROBLEDOEX [facility] Александр Mar 13, 2015 [id number] VERONICA BROWN RT PATIENT MEDICARE (WNR) MEDICARE (M) PART B Aug 12, 2007 PART B [id number] VERONICA BROWN RT PATIENT MEDICARE (WNR) MEDICARE (M) PART A Jan 12, 2004 PART A [id number] VERONICA BROWN RT PATIENT Selected Encounter This section includes the information on record at [place] for the Encounter. Date/Time Encounter Type Encounter Description Reason Pro vider Source Sep 12, 2023 09:09 AM Outpatient Encounter OPTOMETRY IHE Encounter Template Text not used by [facility] Plan of Treatment: Future Appointments (+ 6 months) and Future Tests (+/- 45 days) The Plan of Treatment section includes [facility] care [facility] the [facility] [place] [facility] This section includes future appointments [...] - MEDICINE [facility] [place] [facility] Oct 02, 2023 09:30 AM AMBULATORY - MEDICINE [facility] [facility] Oct 04, 2023 10:00 AM AMBULATORY - [place]ICINE [place] [facility] [place] [facility] Oct 11, 2023 09:00 AM AMBULATORY [place]ICINE [place] [facility] [place] [facility] Oct 18, 2023 10:00 AM AMBULATORY - MEDICINE [place] [facility] [facility] Oct 30, 2023 09:00 AM AMBULATORY - [place]ICINE [place] [facility] [place] [facility] Nov 06, 2023 01:00 PM AMBULATORY - MEDICINE [facility] [place] [facility] Nov 20, 2023 09:30 AM AMBULATORY - MEDICINE [facility] [place] [facility] Dec 18, 2023 09:30 AM AMBULATORY - MEDICINE [facility] [place] [facility] Dec 27, 2023 02:00 PM AMBULATORY - MEDICINE [facility] [place] [facility] Dec 29, 2023 01:30 PM AMBULATORY - MEDICINE [facility] [facility] Jan 01, 2024 02:30 PM AMBULATORY - MEDICINE [facility] [facility] Jan 08, 2024 03:30 PM AMBULATORY - MEDICINE [facility] [facility] Jan 29, 2024 10:30 AM AMBULATORY - MEDICINE [facility] [place] [facility] Jan 30, 2024 03:30 PM AMBULATORY - MEDICINE [facility] [facility] 2024 02:30 PM AMBULATORY - MEDICINE [facility] [facility] Feb 05, 2024 11:00 AM AMBULATORY - MEDICINE [facility] [place] [facility] Feb 06, 2024 03:00 PM AMBULATORY - MEDICINE [place] [facility] [facility] Feb 09, 2024 02:00 PM [place] [facility] Feb 12, 2024 11:00 AM [place]UL[place] [facility] Lab Results: +/- 30 days of the [...] Range Comment Oct 04, 2023 11:44 AM [facility] [place] FERRITIN Specimen Type: SERUM No comment entered. Ordering Provider: ALYCIA STEVENS Report Released Date/Time: May 09, 2023 11:25 AM Reporting Lab: [facility]N [address] [address] Performing Lab: [facility]OSPITALRMARY [facility]ENTERTRN [facility]PITALUSETS [address] [address] FERRITIN 73 ng/mL 20-300 Oct 04, 2023 11:44 AM [facility] [place] CBC Specimen Type: BLOOD No comment entered. Ordering Provider: ALYCIA STEVENS Report Released Date/Time: May 09, 2023 11:25 AM Reporting Lab: [facility]ITALRW[facility] HOSPITALN [facility]PITALUSE[address] [address] Performing Lab: [facility]OSPITALRMARY [facility] CENTERTRN [facility] HOSPITALUSETS [address] [address] WBC 7.68 10*3/uL 4.50-11.00 RBC 4.42 10*6/uL 4.23-5.66 HGB 14.1 g/dL 12.8-17 HCT 42.3 39.2-50.4 MCV 95.7 fL 82-99 MCHC 33.3 g/dL 30.8-35.1 PLT 160 10*3/uL 140-360 RDW-CV 14.2 12.0-16.0 MCH 31.9 pg 26.2-32.6 Oct 04, 2023 11:44 AM [facility] IRON & TIBC PANEL Specimen Type: SERUM No comment entered. Ordering Provider: ALYCIA STEVENS Report Released Date/Time: May 09, 2023 11:25 AM Reporting Lab: [facility] [address] [facility] [address] Performing Lab: [address] [address] TIBC 342 ug/dL 204-475 IRON 96 ug/dL 40-160 Transferrin Saturation 28.1 20.0-50.0 Oct 04, 2023 11:44 AM [facility] MICROALBUMIN CREATININE RATIO PANEL Specimen Type: URINE No comment entered. Ordering Provider: ALYCIA STEVENS Report Released Date/Time: May 09, 2023 11:25 AM Reporting Lab: [address] [address] Performing Lab: [address] [address] MICROALBUMIN/C REATININE RATIO 89.0 mg/g H 0-29.9 MICROALBUMIN,Q UANTITATIVE 7.5 mg/dL RR UNAVAIL CREATININE URINE 84.27 mg/dL Oct 04, 2023 11:44 AM [facility] BASIC METABOLIC PANEL (non-fasting) Specimen Type: SERUM No comment entered. Ordering Provider: ALYCIA STEVENS Report Released Date/Time: May 09, 2023 11:25 AM Reporting Lab: [address] [address] Performing Lab: [address] [address] UREA NITROGEN 24 mg/dL 7-25 GLUCOSE 80 mg/dL 65-100 SODIUM 142 mmol/L 135-145 POTASSIUM 4.7 mmol/L 3.5-5.0 CHLORIDE 109 mmol/L 100-110 CO2 25 meq/L 20-30 CREATININE, Serum 1.96 mg/dL H 0.50-1.40 eGFR(CKD-EPI 2020) 33 mL/min L >60 Aug 23, 2023 11:19 AM [facility] BASIC METABOLIC PANEL (fasting) Specimen Type: SERUM No comment entered. Ordering Provider: SOFI MANCERA Report Released Date/Time: Aug 20, 2023 07:51 PM Reporting Lab: [facility]ITALUSEST[facility] [place] [address] [facility] [address] Performing Lab: [facility] [address] [facility] [address] UREA NITROGEN 26 mg/dL H 7-25 GLUCOSE 120 mg/dL H 65-100 SODIUM 142 mmol/L 135-145 POTASSIUM 5.0 mmol/L 3.5-5.0 CHLORIDE 112 mmol/L H 100-110 CO2 25 meq/L 20-30 CREATININE, Serum 1.90 mg/dL H 0.50-1.40 eGFR(CKD-EPI 2020) 34 mL/min L >60 Aug 23, 2023 11:19 AM [facility] TSH Specimen Type: SERUM No comment entered. Ordering Provider: SOFI MANCERA Report Released Date/Time: Aug 20, 2023 07:51 PM Reporting Lab: [facility] [address] [facility] [address] Performing Lab: [facility]ITALUSEST[facility] [place] [address] [facility] [address] TSH 1.38 u[IU]/mL 0.35-5.00 Aug 23, 2023 11:19 AM [facility] LIPID PANEL FASTING Specimen Type: SERUM No comment entered. Ordering Provider: SOFI MANCERA Report Released Date/Time: Aug 20, 2023 07:51 PM Reporting Lab: [facility] [address] [facility] [address] Performing Lab: [facility]ITALUSE[address] [address] CHOLESTEROL 130 mg/dL TRIGLYCERIDE 120 mg/dL 0-150 LDL calculated 54 mg/dL 0-129 CHOL/HDL 2.5 HDL CHOLESTEROL 52 mg/dL 40-60 Aug 23, 2023 11:19 AM [facility] LIVER FUNCTION Specimen Type: SERUM No comment entered. Ordering Provider: SOFI MANCERA Report Released Date/Time: Aug 20, 2023 07:51 PM Reporting Lab: [facility] [address] [facility] [address] Performing Lab: [facility] [address] [facility] [address] PROTEIN,TOTAL 6.3 g/dL 6.0-8.3 ALBUMIN 3.6 g/dL 3.5-5.0 ALKALINE PHOSPHATASE 66 U/L 40-150 AST 14 U/L 5-34 ALT 14 U/L BILIRUBIN, TOTAL 0.6 mg/dL 0.2-1.2 Aug 23, 2023 11:19 AM [facility] HEMOGLOBIN A1C PANEL [...] Aug 20, 2023 07:51 PM Reporting Lab: [facility] [address] [facility] [address] Performing Lab: [facility] [address] [facility] [address] HEMOGLOBIN A1C 6.3 H 4.0-5.6 Aug 23, 2023 11:19 AM [facility] URIC ACID Specimen Type: SERUM No comment entered. Ordering Provider: SOFI MANCERA Report Released Date/Time: Aug 20, 2023 07:51 PM Reporting Lab: [facility] [address] [facility] [address] Performing Lab: [facility] [address] [facility] [address] URIC ACID 3.0 mg/dL L 3.5-7.2 Aug 23, 2023 11:19 AM [facility] MICROALBUMIN CREATININE RATIO PANEL Specimen Type: URINE No comment entered. Ordering Provider: SOFI MANCERA Report Released Date/Time: Aug 20, 2023 07:51 PM Reporting Lab: [facility] [address] [facility] [address] Performing Lab: [address] [address] MICROALBUMIN/C REATININE RATIO canc mg/g 0-29.9 MICROALBUMIN,Q UANTITATIVE < 0.5 mg/dL RR UNAVAIL CREATININE URINE 108.02 mg/dL Aug 23, 2023 11:19 AM [facility] CBC AND DIFF (AUTO) Specimen Type: BLOOD No comment entered. Ordering Provider: SOFI MANCERA Report Released Date/Time: Aug 20, 2023 07:51 PM Reporting Lab: [address] [address] Performing Lab: [address] [address] WBC 7.43 10*3/uL 4.50-11.00 RBC 4.21 10*6/uL L 4.23-5.66 HGB 13.6 g/dL 12.8-17 HCT 40.0 39.2-50.4 MCV 95.0 fL 82-99 MCHC 34.0 g/dL 30.8-35.1 PLT 165 10*3/uL 140-360 RDW-CV 14.3 12.0-16.0 [place], Abs 0.72 10*3/uL 0.30-1.10 MCH 32.3 pg [...] 10*3/uL 0.00-0.06 Aug 23, 2023 11:19 AM [facility] URINALYSIS CLEAN CATCH Specimen Type: URINE Comment: If Glucose = >500 and Ketones are positive, please alert the Physician. Ordering Provider: SOFI MANCERA Report Released Date/Time: Aug 20, 2023 07:51 PM Reporting Lab: [facility] [address] [facility] [address] Performing Lab: [facility] [address] [facility] [address] UA COLOR Light-Yellow Yellow UA APPEARANCE Clear [...] 26, 2023 10:00 AM [place]-TOBACCO FORMER USER [facility] Tobacco Use History This section includes a history of the smoking, or tobacco-related health factors, that were collected on or before the date of the Encounter. The data comes from the [place] facility where the Encounter took place. Date/Time Smoking Status/Tobacco Use Comment F acility Apr 26, 2023 10:00 AM [place] QU[place] 15 YRS OR MORE [facility] Mar 30, 2022 11:00 AM [place]-TOBACCO FORMER USER [facility] Mar 30, 2022 11:00 AM VA-TOBACCO QUIT 15 YRS OR MORE [facility] Mar 17, 2021 01:30 PM VA-TOBACCO FORMER USER [facility] [place] [facility] Mar 17, 2021 01:30 PM VA-TOBACCO NEVER USED [facility] [place] [facility] Mar 17, 2021 01:30 PM VA-TOBACCO QUIT 15 YRS OR MORE [facility] [place] [facility] Mar 31, 2020 10:30 AM VA-TOBACCO FORMER USER [facility] [place] [facility] Mar 31, 2020 10:30 AM VA-TOBACCO QUIT 15 YRS OR MORE [facility] [place] [facility] Nov 23, 2018 12:07 PM VA-TOBACCO FORMER USER [facility] [place] [facility] Nov 23, 2018 12:07 PM VA-TOBACCO QUIT 15 YRS OR MORE [facility] [place] [facility] Nov 22, 2017 10:02 AM VA-TOBACCO NEVER USED [facility] [place] [facility] Mar 14, 2017 09:31 AM LIFETIME NON-TOBACCO USER [facility] [place] [facility] Mar 01, 2016 02:51 PM LIFETIME NON-TOBACCO USER [facility] [place] [facility] Feb 10, 2015 09:31 AM QUIT TOBACCO USE > 7 YEARS AGO quit in 1964 [place] [facility] [facility] Encounter Notes: All associated encounter notes This section contains the clinical notes associated to the Encounter. Date/Time Encounter Note(s) Provider Source Sep 12, 2023 09:09 AM TELEPHONE ENCOUNTE R NOTE: LOCAL TITLE: TELEPHONE NOTE/SPECIALTY CLINIC STANDARD TITLE: TELEPHONE ENCOUNTER NOTE DATE OF NOTE: SEP 12, 2023@09:09 ENTRY DATE: SEP 12, 2023@09:09:18 AUTHOR: JOSH SANTOS EXP COSIGNER: URGENCY: STATUS: COMPLETED Called and left message on voicemail. Patients appointment with optometry on 04/26/2224 Needs to be rescheduled with a PID of 04/24/2024 Letter mailed [phone] Ext: [phone] /cas/ JOSH SANTOS [employer] Signed: 09/12/2023 09:09 JOSH SANTOS [place] [facility] [place] [facility]
--- OUTSIDE RECORDS SUMMARY | 2024-03-20 13:59 | XMS_ITS ---
Author Name [facility] [place] [facility] [place] [facility] [place] Address [address] [place] [address] Care Team Providers Care Trauma Therapist Name Role Phone SOFI MANCERA Primary [...] Relationship to Policy [place] [facility] MEDEX CHARAN E Mar 13, 2015 [id number] VERONICA BROWN RT PATIENT MEDICARE (WNR) MEDICARE (M) PART B Aug 12, 2007 PART B [id number] VERONICA BROWN RT PATIENT MEDICARE (WNR) MEDICARE (M) PART A Jan 12, 2004 PART A [id number] VERONICA BROWN RT PATIENT Selected Encounter This section includes the information on [place] at [place] for the Encounter. Date/Time Encounter Type Encounter Description Reason Provider Source Sep 15, 2023 10:30 AM MTMS BY PHARM ADDL 15 MIN CLINICAL PHARMACY ICD-10-CM E11.9 Type 2 diabetes mellitus without complications RENETTA FRENCH Encounter Template Text not used by [place] Assessments - Encounter Diagnoses This section includes the primary and secondary diagnoses documented for the Encounter. Date/Time Primary/Secondary Diagnosis Diagnosis Name Provider Source Sep 15, 2023 01:07 PM PRIMARY Type 2 diabetes mellitus without complications RENETTA FRENCH [place] [facility] [place] [facility] Plan of Treatment: Future Appointments (+ 6 months) and Future Tests (+/- 45 days) The Plan of Treatment section includes future care activities for the patient from all [place] treatmentfacilities. This section includes future appointments and [...] MEDICINE [facility] [place] [facility] Oct 04, 2023 10:00 AM AMBULATORY - MEDICINE [place] [facility] [place] [facility] Oct 11, 2023 09:00 AM AMBULATORY - MEDICINE [place] [facility] [place] [facility] Oct 18, 2023 10:00 AM AMBULATORY - MEDICINE [facility] [place] [facility] Oct 30, 2023 09:00 AM AMBULATORY [place] MEDICINE [facility] [place] [facility] Nov 06, 2023 01:00 PM AMBULATORY - MEDICINE [facility] [place] [facility] Nov 20, 2023 09:30 AM AMBULATORY - MEDICINE [facility] [place] [facility] Dec 18, 2023 09:30 AM AMBULATORY - MEDICINE [facility] [place] [facility] Dec 27, 2023 02:00 PM AMBULATORY - MEDICINE [facility] [place] [facility] Dec 29, 2023 01:30 PM AMBULATORY - MEDICINE [facility] [place] [facility] Jan 01, 2024 02:30 PM AMBULATORY - MEDICINE [facility] [place] [facility] Jan 08, 2024 03:30 PM AMBULATORY - MEDICINE [facility] [place] [facility] Jan 29, 2024 10:30 AM AMBULATORY - MEDICINE [facility] [place] [facility] Jan 30, 2024 03:30 PM AMBULATORY - MEDICINE [facility] [place] [facility] 2024 02:30 PM [place]UL[place] [facility] [place] [facility] Feb 05, 2024 11:00 AM [place] [facility] [place] [facility] Feb 06, 2024 03:00 PM [place] [facility] [place] [facility] Feb 09, 2024 02:00 PM [place] [facility] [place] [facility] Feb 12, 2024 11:00 AM [place] [facility] [place] [facility] Feb 15, 2024 01:00 PM [place]ORY [place] [facility] [place] [facility] Lab Results: +/- 30 days of [...] Range Comment Oct 04, 2023 11:44 AM [place] [facility] FERRITIN Specimen Type: SERUM No comment entered. Ordering Provider: ALYCIA STEVENS Report Released Date/Time: May 09, 2023 11:25 AM Reporting Lab: [place] [facility] [place] [facility] [address] [address] [facility] [address] [address] FERRITIN 73 ng/mL 20-300 Oct 04, 2023 11:44 AM [facility] CBC Specimen Type: BLOOD No comment entered. Ordering Provider: ALYCIA STEVENS Report Released Date/Time: May 09, 2023 11:25 AM Reporting [facility] [place] [facility] [address] [address] Per[facility]: [facility] [address] [address] WBC 7.68 10*3/uL 4.50-11.00 RBC 4.42 10*6/uL [...] May 09, 2023 11:25 AM Reporting Lab: [address] [address] Performing Lab: [address] [address] TIBC 342 ug/dL 204-475 IRON 96 ug/dL 40-160 Transferrin Saturation 28.1 20.0-50.0 Oct 04, 2023 11:44 AM [facility] MICROALBUMIN CREATININE RATIO PANEL Specimen Type: URINE No comment entered. Ordering Provider: ALYCIA STEVENS A Report Released Date/Time: May 09, 2023 11:25 AM Reporting Lab: [address] [address] Performing Lab: [address] [address] MICROALBUMIN/C REATININE RATIO 89.0 mg/g H 0-29.9 MICROALBUMIN,Q UANTITATIVE 7.5 mg/dL RR UNAVAIL CREATININE URINE 84.27 mg/dL Oct 04, 2023 11:44 AM [facility] BASIC METABOLIC PANEL (non-fasting) Specimen Type: SERUM No comment entered. Ordering Provider: ALYCIA STEVENS A Report Released Date/Time: May 09, 2023 11:25 AM Reporting Lab: [address] [address] Performing Lab: [address] [address] UREA NITROGEN 24 mg/dL 7-25 GLUCOSE 80 [...] Aug 20, 2023 07:51 PM Reporting Lab: [address] [address] Performing Lab: [address] [address] UREA NITROGEN 26 mg/dL H 7-25 GLUCOSE [...] Aug 20, 2023 07:51 PM Reporting Lab: [address] [address] Performing Lab: [address] [address] TSH 1.38 u[IU]/mL 0.35-5.00 Aug 23, 2023 11:19 AM [facility] LIPID PANEL FASTING Specimen Type: SERUM No comment entered. Ordering Provider: SOFI MANCERA Report Released Date/Time: Aug 20, 2023 07:51 PM Reporting Lab: [address] [address] Performing Lab: [address] [place] [address] CHOLESTEROL 130 mg/dL TRIGLYCERIDE 120 mg/dL 0-150 LDL calculated 54 mg/dL 0-129 CHOL/HDL 2.5 HDL CHOLESTEROL 52 mg/dL 40-60 Aug 23, 2023 11:19 AM [facility] LIVER FUNCTION Specimen Type: SERUM No comment entered. Ordering Provider: SOFI MANCERA Report Released Date/Time: Aug 20, 2023 07:51 PM Reporting Lab: [address] [address] Performing Lab: [address] [address] PROTEIN,TOTAL 6.3 g/dL 6.0-8.3 ALBUMIN 3.6 g/dL [...] Aug 20, 2023 07:51 PM Reporting Lab: [address] [address] Performing Lab: [address] [address] HEMOGLOBIN A1C 6.3 H 4.0-5.6 Aug 23, 2023 11:19 AM [facility] URIC ACID Specimen Type: SERUM No comment entered. Ordering Provider: SOFI MANCERA Report Released Date/Time: Aug 20, 2023 07:51 PM Reporting Lab: [address] [address] Performing Lab: [facility] [address] [address] URIC ACID 3.0 mg/dL L 3.5-7.2 Aug 23, 2023 11:19 AM [facility] MICROALBUMIN CREATININE RATIO PANEL Specimen Type: URINE No comment entered. Ordering Provider: SOFI MANCERA Report Released Date/Time: Aug 20, 2023 07:51 PM Reporting Lab: [facility] [address] [address] Performing Lab: [address] [address] MICROALBUMIN/C REATININE RATIO canc mg/g 0-29.9 MICROALBUMIN,Q UANTITATIVE < 0.5 mg/dL RR UNAVAIL CREATININE URINE 108.02 mg/dL Aug 23, 2023 11:19 AM [facility] CBC AND DIFF (AUTO) Specimen Type: BLOOD No comment entered. Ordering Provider: SOFI MANCERA Report Released Date/Time: Aug 20, 2023 07:51 PM Reporting Lab: [facility] [address] [address] Performing Lab: [address] [address] WBC 7.43 10*3/uL 4.50-11.00 RBC 4.21 10*6/uL L 4.23-5.66 HGB 13.6 g/dL 12.8-17 HCT 40.0 39.2-50.4 MCV 95.0 fL 82-99 MCHC 34.0 g/dL 30.8-35.1 PLT 165 10*3/uL 140-360 RDW-CV 14.3 12.0-16.0 Will, Abs 0.72 10*3/uL 0.30-1.10 MCH 32.3 pg [...] PM Reporting Lab: [facility] [address] [address] Performing Lab: [address] [address] UA COLOR Light-Yellow Yellow UA APPEARANCE Clear [...] 26, 2023 10:00 AM VA-TOBACCO FORMER USER [facility] Tobacco Use [...] OR MORE [facility] [place] [facility] Mar 30, 2022 11:00 AM VA-TOBACCO FORMER USER [facility] [place] [facility] Mar 30, 2022 11:00 AM VA-TOBACCO QUIT 15 YRS OR MORE [facility] [place] [facility] Mar 17, 2021 01:30 PM VA-TOBACCO FORMER USER [facility] [place] [facility] Mar 17, 2021 01:30 PM VA-TOBACCO NEVER USED [facility] [place] [facility] Mar 17, 2021 01:30 PM VA-TOBACCO QUIT 15 YRS OR MORE [facility] [place] [facility] Mar 31, 2020 10:30 AM VA-TOBACCO FORMER USER [facility] [place] [facility] Mar 31, 2020 10:30 AM VA-TOBACCO QUIT 15 YRS OR MORE [facility] [place] [facility] Nov 23, 2018 12:07 PM VA-TOBACCO FORMER USER [facility] [place] [facility] Nov 23, 2018 12:07 PM VA-TOBACCO QUIT 15 YRS OR MORE [facility] [place] [facility] Nov 22, 2017 10:02 AM VA-TOBACCO NEVER USED [facility] [place] [facility] Mar 14, 2017 09:31 AM LIFETIME NON-TOBACCO USER [facility] [place] [facility] Mar 01, 2016 02:51 PM LIFETIME NON-TOBACCO USER [facility] [place] [facility] Feb 10, 2015 09:31 AM QUIT TOBACCO USE > 7 YEARS AGO quit in [address] [place] [address] [facility] [place] [facility] Encounter Notes: All associated encounter notes This section contains the clinical notes associated to the Encounter. Date/Time Encounter Note(s) Provider Source Sep 15, 2023 01:07 PM ADDENDUM: LOCAL TITLE: Addendum STANDARD TITLE: ADDENDUM DATE OF NOTE: SEP 15, 2023@13:07:16 ENTRY DATE: SEP 15, 2023@13:07:17 AUTHOR: RENETTA FRENCH EXP COSIGNER: URGENCY: STATUS: COMPLETED AMSA, please schedule appointment for: - Cwm/No/Tele/Pharm/Pact 2 Please schedule for 10/02/23 @ 930am landline Thank you! /es/ RENETTA FRENCH PHARMD, BCPS CLINICAL PHARMACIST PRACTITIONER Signed: 09/15/2023 13:07 Receipt Acknowledged By: 09/15/2023 13:51 /es/ MARTIN MANLEY ADVANCED CONTRACT AGENT --- Original Document --- 09/15/23 PHARMACY CLINIC NOTE: JACQUELYN BROWN, 83 yo WHITE MALE, presents for ceac-kt-fero follow-up for diabetes management. SEP 15, 2023 Known Allergies: METFORMIN, LISINOPRIL, ATORVASTATIN Subjective: referred to pharmacy clinic for diabetes management. At time of last visit, NF was placed for semaglutide. Today pt presents with his Elisa and reports he is doing well. Denies any s/sx of hypoglycemia since last visit. Discussed conversation between video game script writer and Opthamologist regarding semaglutide initiation. Pt notes he saw something on the news about it . Pt continues to SMBG twice daily; has not adjusted insulin dose since discussion last visit. Pt to start going back to the gym starting Monday. During appointment, pt's prompted pt to discuss an incident he has a few weeks ago. According to pt, one day, he felt very lousy and fatigues and blood glucose numbers all over the place and through the roof . Pt determined that in place of injecting 20 units of insulin glargine-yfgn, pt injected 20 units of air. Target Goals: A1C: <8%; FB-150 mg/dl Personal goals: - Maintain diabetes - Lose weight - eliminate insulin Objective: Diabetes Medication Regimen: Current diabetes medications: - insulin glargine-yfgn 20 units in the evening Previous diabetes medications: [...] MH/depression/denies SI - Denies hx of UTI Pt has extensive renal history. He has a history of kidney stones and has been hospitalized at least three times for kidney stones/infections. He states that 15 years ago, he went for ablation of kidney stone and it was discovered the scarring was so extensive, that the kidney shutdown. Pt has one active kidney currently. He is also followed by non-VA urology for his prostate. Pt has noturia 4-5 times/night and does report occasional incontinence. For those reasons, empagliflozin was prescribed but then discontinued. SMBG: FBG PPBG 09/11/23 110 09/12/23 111 190 09/13/23 114 156 09/14/23 116 147 09/15/23 115 avg 113 164 FBG PPBG 08/28/23 131 172 08/29/23 102 [...] Pt currently at goal (A1C 6.3% 08/23/23). Reviewed MOA, potential ADRs, and administration technique. Pt was able to demonstrate understanding via teachback method of demo pen. Counseled on possible ADRs of N/V/D/C. Encouraged to let CPP know of other ADRs including changes in vision, trouble swallowing, voice hoarseness, and intense abdominal pain. Given FPBG average, will reduce insulin glargine-yfgn 20% to decrease risk of hypoglycemia. Discussed change from insulin vials/syringes to insulin pens with pen needles given pt's recent administration error and difficulty with near-sight vision. Pt agreeable to change. Will order for mail. Pt educated on administration technique. Discussed LSMs. 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 The was provided the opportunity express questions or concerns, and the plan was adjusted as needed to address these concerns. -Reviewed with any new medications, changes to the medication list, education, and plan from today's visit. Patient (and/or caregiver) verbalized understanding of the plan, including possible known risks and benefits, and had no additional questions. RTC: 10/02/23 @ 930am (Tele) (landline) Time Spent: 30 minutes PBM PharmD Pharmacotherapy Rem V12: PHARMACIST INTERVENTIONS: TYPE 2 DIABETES MELLITUS Medication Intervention(s) Adjust dose or frequency of current medication due to other reason Initiate new medication Medication reconciliation (changes to active VA and non-VA medication lists to reconcile differences) No changes to medication lists made (medication review completed, no discrepancies identified) /cas/ RENETTA FRENCH PHARMD, BCPS CLINICAL PHARMACIST PRACTITIONER Signed: 09/15/2023 13:07 RENETTA FRENCH [place] [facility] [place] [facility] Sep 15, 2023 10:33 AM PHARMACY OUTPATIEN T NOTE: LOCAL TITLE: PHARMACY CLINIC NOTE STANDARD TITLE: PHARMACY OUTPATIENT NOTE DATE OF NOTE: SEP 15, 2023@10:33 ENTRY DATE: SEP 15, 2023@10:33:20 AUTHOR: RENETTA FRENCH EXP COSIGNER: URGENCY: STATUS: COMPLETED PHARMACY CLINIC NOTE Has ADDENDA JACQUELYN BROWN, 83 yo WHITE MALE, presents for lhcd-oo-ujhj follow-up for diabetes management. SEP 15, 2023 Known Allergies: METFORMIN, LISINOPRIL, ATORVASTATIN Subjective: [place] referred to pharmacy clinic for diabetes management. At time of last visit, NF was placed for semaglutide. Today pt presents with his Elisa and reports he is doing well. Denies any s/sx of hypoglycemia since last visit. Discussed conversation between video game script writer and Opthamologist regarding semaglutide initiation. Pt notes he saw something on the news about it . Pt continues to SMBG twice daily; has not adjusted insulin dose since discussion last visit. Pt to start going back to the gym starting Monday. During appointment, pt's prompted pt to discuss an incident he has a few weeks ago. According to pt, one day, he felt very lousy and fatigues and blood glucose numbers all over the place and through the roof . Pt determined that in place of injecting 20 units of insulin glargine-yfgn, pt injected 20 units of air. Target Goals: A1C: <8%; FB-150 mg/dl Personal goals: - Maintain diabetes - Lose weight - eliminate insulin Objective: Diabetes Medication Regimen: Current diabetes medications: - insulin glargine-yfgn 20 units in the evening Previous diabetes medications: [...] MH/depression/denies SI - Denies hx of UTI Pt has extensive renal history. He has a history of kidney stones and has been hospitalized at least three times for kidney stones/infections. He states that 15 years ago, he went for ablation of kidney stone and it was discovered the scarring was so extensive, that the kidney shutdown. Pt has one active kidney currently. He is also followed by non-VA urology for his prostate. Pt has noturia 4-5 times/night and does report occasional incontinence. For those reasons, empagliflozin was prescribed but then discontinued. SMBG: FBG PPBG 09/11/23 110 09/12/23 111 190 09/13/23 114 156 09/14/23 116 147 09/15/23 115 avg 113 164 FBG PPBG 08/28/23 131 172 08/29/23 102 [...] Pt currently at goal (A1C 6.3% 08/23/23). Reviewed MOA, potential ADRs, and administration technique. Pt was able to demonstrate understanding via teachback method of demo pen. Counseled on possible ADRs of N/V/D/C. Encouraged to let CPP know of other ADRs including changes in vision, trouble swallowing, voice hoarseness, and intense abdominal pain. Given FPBG average, will reduce insulin glargine-yfgn 20% to decrease risk of hypoglycemia. Discussed change from insulin vials/syringes to insulin pens with pen needles given pt's recent administration error and difficulty with near-sight vision. Pt agreeable to change. Will order for mail. Pt educated on administration technique. Discussed LSMs. 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 The was provided the opportunity express questions or concerns, and the plan was adjusted as needed to address these concerns. -Reviewed with [place] any new medications, changes to the medication list, education, and plan from today's visit. Patient (and/or caregiver) verbalized understanding of the plan, including possible known risks and benefits, and had no additional questions. RTC: 10/02/23 @ 930am (Tele) (landline) Time Spent: 30 minutes PBM PharmD Pharmacotherapy Rem V12: PHARMACIST INTERVENTIONS: TYPE 2 DIABETES MELLITUS Medication Intervention(s) Adjust dose or frequency of current medication due to other reason Initiate new medication Medication reconciliation (changes to active VA and non-VA medication lists to reconcile differences) No changes to medication lists made (medication review completed, no discrepancies identified) /cas/ RENETTA FRENCH PHARMD, JOANNA CLINICAL PHARMACIST PRACTITIONER Signed: 09/15/2023 13:07 09/15/2023 ADDENDUM STATUS: COMPLETED AMSA, please schedule appointment for: - Cwm/No/Tele/Pharm/Pact 2 Please schedule for 10/02/23 @ 930am landline Thank you! /aida FRENCH PHARMD, [facility] CLINICAL PHARMACIST PRACTITIONER Signed: 09/15/2023 13:07 Receipt Acknowledged By: * AWAITING SIGNATURE * LIAM NOLAN ADITIYA [place] [facility]
--- OUTSIDE RECORDS SUMMARY | 2024-03-20 13:59 | XMS_ITS | Encounter Summary ---
Author Name [facility] [place] Organization [place] Address [address] [place] [address] Care Team Providers Care Felt Checker Name Role Phone SOFI MANCERA Primary Care [...] Relationship to Policy [place] [facility] Haque Mar 13, 2015 [id number] VERONICA BROWN RT PATIENT MEDICARE (WNR) MEDICARE (M) PART B Aug 12, 2007 PART B [id number] VERONICA BROWN RT PATIENT MEDICARE (WNR) MEDICARE (M) PART A Jan 12, 2004 PART A [id number] VERONICA BORWN RT PATIENT Selected Encounter This section includes the information on record at [place] for the Encounter. Date/Time Encounter Type Encounter Description Reason Provider Source Aug 23, 2023 10:30 AM HEARING AID REPAIR/MODIFYING AUDIOLOGY ICD-10-CM Z46.1 Encounter for fitting and adjustment of hearing aid SAMSON BRADEN Encounter Template Text not used by [facility] Assessments - Encounter Diagnoses This section includes the primary and secondary diagnoses documented for the Encounter. Date/Time Primary/Secondary Diagnosis Diagnosis Name Provider Source Aug 23, 2023 10:57 AM PRIMARY Encounter for fitting and adjustment of hearing aid JASMINA NEWELL [place] [facility] [place] [facility] Aug 23, 2023 10:57 AM SECONDARY Sensorineural hearing loss, bilateral JASMINA NEWELL [place] [facility] [place] [facility] Plan of Treatment: Future Appointments (+ 6 months) and Future Tests (+/- 45 days) The Plan of Treatment section includes future care activities for the patient from all [place] [facility]. This section includes future appointments and future orders which are active, pending or scheduled. Future Appointments This section includes appointments that were scheduled to occur 6 months from the date of the Encounter, up to a maximum of 20 appointments. The data comes from all [place] treatment facilities. Appointment Date/Time Appointment Type Appointme nt Facility Name Sep 01, 2023 11:30 AM AMBULATORY - MEDICINE [place] [facility] [place] [facility] Sep 11, 2023 02:30 PM AMBULATORY - MEDICINE [facility] [place] [facility] Sep 15, 2023 10:30 AM AMBULATORY - MEDICINE [facility] [place] [facility] Oct 02, 2023 09:30 AM AMBULATORY - MEDICINE [facility] [place] [facility] Oct 04, 2023 10:00 AM AMBULATORY - MEDICINE [place] [facility] [place] [facility] Oct 11, 2023 09:00 AM AMBULATORY - MEDICINE [facility] [place] [facility] Oct 18, 2023 10:00 AM AMBULATORY - MEDICINE [facility] [place] [facility] Oct 30, 2023 09:00 AM AMBULATORY - MEDICINE [facility] [place] [facility] Nov 06, 2023 01:00 PM AMBULATORY - MEDICINE [facility] [place] [facility] Nov 20, 2023 09:30 AM AMBULATORY - MEDICINE [facility] [place] [facility] Dec 18, 2023 09:30 AM AMBULATORY - MEDICINE [facility] [place] [facility] Dec 27, 2023 02:00 PM AMBULATORY - MEDICINE [place] [facility] [place] [facility] Dec 29, 2023 01:30 PM AMBULATORY - MEDICINE [facility] [place] [facility] Jan 01, 2024 02:30 PM AMBULATORY - MEDICINE [facility] [place] [facility] Jan 08, 2024 03:30 PM AMBULATORY - MEDICINE [facility] [place] [facility] Jan 29, 2024 10:30 AM AMBULATORY - MEDICINE [facility] [place] [facility] Jan 30, 2024 03:30 PM AMBULATORY - MEDICINE [facility] [place] [facility] 2024 02:30 PM AMBULATORY - MEDICINE [facility] [place] [facility] Feb 05, 2024 11:00 AM AMBULATORY - MEDICINE [place] [facility] [place] [facility] Feb 06, 2024 03:00 PM AMBULATORY - MEDICINE MA [facility] [place] [facility] Lab Results: +/- 30 days of the encounter This section includes the Chemistry and Hematology Lab Results on record with [place] for the patient. Radiology Reports and Pathology Reports are provided separately, in subsequent sections. Lab Results This section contains the Chemistry/Hematology Results that were resulted 30 days before or 30 daysafter the date of the Encounter. Date/Time Source Result Type Result - Unit Interpretation Reference Range Comment Aug 23, 2023 11:19 AM [place] [facility] [place] [facility] TSH Specimen Type: SERUM No comment entered. Ordering Provider: SOFI MANCERA Report Released Date/Time: Aug 20, 2023 07:51 PM Reporting Lab: [place] [facility] [place] [address] [address] Performing Lab: [place] [facility] [place] [address] [address] TSH 1.38 u[IU]/mL 0.35-5.00 Aug 23, 2023 11:19 AM [place] [facility] [place] [facility] BASIC METABOLIC PANEL (fasting) Specimen Type: SERUM No comment entered. Ordering Provider: SOFI MANCERA Report Released Date/Time: Aug 20, 2023 07:51 PM Reporting Lab: [place] [facility] [place] [address] [address] Performing Lab: [place] [facility] [place] [address] UREA NITROGEN 26 mg/dL H 7-25 GLUCOSE 120 mg/dL H 65-100 SODIUM 142 mmol/L 135-145 POTASSIUM 5.0 mmol/L 3.5-5.0 CHLORIDE 112 mmol/L H 100-110 CO2 25 meq/L 20-30 CREATININE, Serum 1.90 mg/dL H 0.50-1.40 eGFR(CKD-EPI 2020) 34 mL/min L >60 Aug 23, 2023 11:19 AM [facility] LIVER FUNCTION Specimen Type: SERUM No comment entered. Ordering Provider: SOFI MANCERA Report Released Date/Time: Aug 20, 2023 07:51 PM Reporting Lab: [address] [address] Performing Lab: [address] [address] PROTEIN,TOTAL 6.3 g/dL 6.0-8.3 ALBUMIN 3.6 g/dL 3.5-5.0 ALKALINE PHOSPHATASE 66 U/L 40-150 AST 14 U/L 5-34 ALT 14 U/L BILIRUBIN, TOTAL 0.6 mg/dL 0.2-1.2 Aug 23, 2023 11:19 AM [facility] LIPID PANEL FASTING Specimen Type: SERUM No comment entered. Ordering Provider: SOFI MANCERA Report Released Date/Time: Aug 20, 2023 07:51 PM Reporting Lab: [address] [address] Performing Lab: [address] [address] CHOLESTEROL 130 mg/dL TRIGLYCERIDE 120 mg/dL 0-150 LDL calculated 54 mg/dL 0-129 CHOL/HDL 2.5 HDL CHOLESTEROL 52 mg/dL 40-60 Aug 23, 2023 11:19 AM [facility] HEMOGLOBIN A1C PANEL Specimen Type: BLOOD [...] Aug 20, 2023 07:51 PM Reporting Lab: [facility] [address] [facility] [address] Performing Lab: [facility] [address] [facility] [address] HEMOGLOBIN A1C 6.3 H 4.0-5.6 Aug 23, 2023 11:19 AM [facility] URIC ACID Specimen Type: SERUM No comment entered. Ordering Provider: SOFI MANCERA Report Released Date/Time: Aug 20, 2023 07:51 PM Reporting Lab: [facility] [address] [facility] [address] Performing Lab: [address] [address] URIC ACID 3.0 mg/dL L 3.5-7.2 Aug 23, 2023 11:19 AM [facility] MICROALBUMIN CREATININE RATIO PANEL Specimen Type: URINE No comment entered. Ordering Provider: SOFI MANCERA Report Released Date/Time: Aug 20, 2023 07:51 PM Reporting Lab: [facility] [address] [facility] [address] Performing Lab: [address] [address] MICROALBUMIN/C REATININE RATIO canc mg/g 0-29.9 MICROALBUMIN,Q UANTITATIVE < 0.5 mg/dL RR UNAVAIL CREATININE URINE 108.02 mg/dL Aug 23, 2023 11:19 AM [facility] URINALYSIS CLEAN CATCH Specimen Type: URINE Comment: If Glucose = >500 and Ketones are positive, please alert the Physician. Ordering Provider: SOFI MANCERA Report Released Date/Time: Aug 20, 2023 07:51 PM Reporting Lab: [facility] [address] Performing Lab: [address] [place] [address] UA COLOR Light-Yellow Yellow UA APPEARANCE Clear Clear UA GLUCOSE NEGATIVE mg/dL Negative UA KETONES NEGATIVE mg/dL Negative UA BLOOD NEGATIVE mg/dL Negative UA PROTEIN 20 mg/dL Negative UA NITRITE NEGATIVE mg/dL Negative UA BILIRUBIN NEGATIVE mg/dL Negative UA SPECIFIC GRAVITY 1.018 1.016-1.02 2 UA pH 6.0 5.0-9.0 UA UROBILINOGEN <2.0 mg/dL <2.0 UA LEUKOCYTE NEGATIVE Negative Aug 23, 2023 11:19 AM [facility] CBC AND DIFF (AUTO) Specimen Type: BLOOD No comment entered. Ordering Provider: SOFI MANCERA Report Released Date/Time: Aug 20, 2023 07:51 PM Reporting Lab: [address] [address] Performing Lab: [address] [address] WBC 7.43 10*3/uL 4.50-11.00 RBC 4.21 10*6/uL L 4.23-5.66 HGB 13.6 g/dL 12.8-17 HCT 40.0 39.2-50.4 MCV 95.0 fL 82-99 MCHC 34.0 g/dL 30.8-35.1 PLT 165 10*3/uL 140-360 RDW-CV 14.3 12.0-16.0 [place], Abs 0.72 10*3/uL 0.30-1.10 MCH 32.3 pg 26.2-32.6 NEUT % 59.5 43.7-75.8 LYMPH % 24.2 14.0-42.3 MONO % 9.7 5.1-13.7 Eos % 5.9 0.4-6.8 Baso % 0.3 0.1-2.0 Neut, Abs 4.42 10*3/uL 2.20-7.60 Lymph, Abs 1.80 10*3/uL 1.00-3.20 Eos, Abs 0.44 10*3/uL 0.03-0.44 Baso, Abs 0.02 10*3/uL 0.01-0.13 Immature Gran % 0.4 0.0-0.7 Immature Gran, Abs 0.03 10*3/uL 0.00-0.06 Social History: Smoking Status (Most [...] 26, 2023 10:00 AM VA-TOBACCO FORMER USER [place] [facility] [place] [facility] Tobacco Use History This section includes a history of the smoking, or tobacco-related health factors, that were collected on or before the date of the Encounter. The data comes from the [place] facility where the Encounter took place. Date/Time Smoking Status/Tobacco Use Comment F acshahbaz Apr 26, 2023 10:00 AM VA-TOBACCO QUIT 15 YRS OR MORE [place] [facility] [place] [facility] Mar 30, 2022 11:00 AM VA-TOBACCO FORMER USER [facility] [place] [facility] Mar 30, 2022 11:00 AM VA-TOBACCO QUIT 15 YRS OR MORE [facility] [place] [facility] Mar 17, 2021 01:30 PM VA-TOBACCO FORMER USER [facility] [place] [facility] Mar 17, 2021 01:30 PM VA-TOBACCO NEVER USED VA [facility] [place] [facility] Mar 17, 2021 01:30 PM VA-TOBACCO QUIT 15 YRS OR MORE [facility] [place] [facility] Mar 31, 2020 10:30 AM VA-TOBACCO FORMER USER [facility] [place] [facility] Mar 31, 2020 10:30 AM VA-TOBACCO QUIT 15 YRS OR MORE [facility] [place] [facility] Nov 23, 2018 12:07 PM VA-TOBACCO FORMER USER [facility] [place] [facility] Nov 23, 2018 12:07 PM VA-TOBACCO QUIT 15 YRS OR MORE [facility] [place] [facility] Nov 22, 2017 10:02 AM VA-TOBACCO NEVER USED [facility] [place] [facility] Mar 14, 2017 09:31 AM LIFETIME NON-TOBACCO USER [facility] Mar 01, 2016 02:51 PM LIFETIME NON-TOBACCO USER [facility] Feb 10, 2015 09:31 AM QUIT TOBACCO USE > 7 YEARS AGO quit in 1964 [facility] Encounter Notes: All associated encounter notes This section contains the clinical notes associated to the Encounter. Date/Time Encounter Note(s) Provider Source Aug 23, 2023 07:43 AM AUDIOLOGY NOTE: LOCAL TITLE: AUDIOLOGY [facility] STANDARD TITLE: AUDIOLOGY NOTE DATE OF NOTE: AUG 23, 2023@07:43 ENTRY DATE: AUG 23, 2023@07:43:19 AUTHOR: ANA NEWELL COSIGNER: SAMSON BRADEN URGENCY: STATUS: COMPLETED August 23, 2023 History/Background: was seen for a hearing aid follow up, unaccompanied. scheduled today's appointment reporting his left hearing aid is . Hearing aids: No Evolv AI ITC Rs Serial Numbers: [id number] Date Issued: 05/31/2022 AND Hearing aids: No Bryan half shells Serial Numbers: [id number] Date Issued: 05/03/2018 Hearing aid check: Both sets of hearing aids were cleaned and checked. Replaced anya covers and wax guards on all 4 aids. Biologic check was good. Evolv hearing aids were connected to [facility], battery life on left aid was at 0%, right was 100%. [place] reported the hearing aids had been on the charger tester all night. The left hearing aid will be sent to [employer] for repair and mailed directly to [place] via [facility]. Plan: Follow up as needed. /cas/ AAN NEWELL Audiology Health Transaction Coordinator Signed: 08/23/2023 10:58 /cas/ SAMSON Daley, [facility]-A CHIEF, AUDIOLOGY/CRUSHER FEEDER Cosigned: 08/23/2023 11:12 ANA NEWELL [facility]
[2024-03-20 14:00] VITALS: BP 110/66; PULSE 59; O2SAT 98; BMI 34.1
--- OUTSIDE RECORDS SUMMARY | 2024-03-20 14:00 | XMS_ITS ---
Author Name [place] Address 0 [place] [address] Care Team Providers Care Router Operator Radial Name Role Phone SOFI MANCERA Primary Care [...] [facility] CHARAN E Mar 13, 2015 [id number] VERONICA BROWN RT PATIENT MEDICARE (WNR) MEDICARE (M) PART B Aug 12, 2007 PART B [id number] VERONICA BROWN RT PATIENT MEDICARE (WNR) MEDICARE (M) PART A Jan 12, 2004 PART A [id number] VERONICA BROWN RT PATIENT Selected Encounter This section includes the information on record at [place] for the Encounter. Date/Time Encounter Type Encounter Description Reason Provider Source Oct 11, 2023 09:00 AM OFFICE O/P EST MOD 30 MIN RENAL/NEPHROL(EXCE PT DIALYSIS) ICD-10-CM E11.22 Type 2 diabetes mellitus w diabetic chronic kidney disease ALYCIA STEVENS [facility] Encounter Template Text not used by [place] Assessments - Encounter Diagnoses This section includes the primary and secondary diagnoses documented for the Encounter. Date/Time Primary/Secondary Diagnosis Diagnosis Name Provider Source Oct 12, 2023 02:04 PM PRIMARY Type 2 diabetes mellitus w diabetic chronic kidney disease NEENA STEVENS [place] [facility] [facility] Oct 12, 2023 02:04 PM SECONDARY Chronic kidney disease, stage 3 unspecified NEENA STEVENS [place] [facility] [facility] Oct 12, 2023 02:04 PM SECONDARY Essential (primary) hypertension NEENA STEVENS [place] [facility] [facility] Oct 12, 2023 02:04 PM SECONDARY Other obesity NEENA STEVENS [place] [facility] [facility] Oct 12, 2023 02:04 PM SECONDARY Type 2 diabetes mellitus without complications NEENA STEVENS [place] [facility] [facility] Plan of Treatment: Future Appointments (+ 6 months) and Future Tests (+/- 45 days) The Plan of Treatment section includes future care activities for the patient from all [place] [facility]. This section includes future appointments and future orders which are active, pending or scheduled. Future Appointments This section includes appointments that were scheduled to occur 6 months from the date of the Encounter, up to a maximum of 20 appointments. The data comes from all [place] treatment facilities. Appointment Date/Time Appointment Type Appointme nt Facility Name Oct 18, 2023 10:00 AM AMBULATORY - MEDICINE [place] [place] [facility] Oct 30, 2023 09:00 AM AMBULATORY - MEDICINE [place] [facility] [facility] Nov 06, 2023 01:00 PM AMBULATORY - MEDICINE [place] [facility] [facility] Nov 20, 2023 09:30 AM AMBULATORY - MEDICINE [place] [facility] [facility] Dec 18, 2023 09:30 AM AMBULATORY - MEDICINE [place] [facility] Dec 27, 2023 02:00 PM AMBULATORY - MEDICINE [place] [facility] [facility] Dec 29, 2023 01:30 PM AMBULATORY - MEDICINE [place] [facility] [facility] Jan 01, 2024 02:30 PM AMBULATORY - MEDICINE [place] [facility] [facility] Jan 08, 2024 03:30 PM AMBULATORY - MEDICINE [facility] [facility] Jan 29, 2024 10:30 AM AMBULATORY - MEDICINE [place] [facility] [facility] Jan 30, 2024 03:30 PM AMBULATORY - MEDICINE [facility] [facility] 2024 02:30 PM AMBULATORY - MEDICINE [facility] [facility] Feb 05, 2024 11:00 AM AMBULATORY - MEDICINE [place] [facility] [facility] Feb 06, 2024 03:00 PM AMBULATORY - MEDICINE [place] [facility] [facility] Feb 09, 2024 02:00 PM AMBULATORY - MEDICINE [place] [facility] [facility] Feb 12, 2024 11:00 AM AMBULATORY - MEDICINE [place] [facility] [facility] Feb 15, 2024 01:00 PM AMBULATORY - MEDICINE [place] [facility] [facility] Feb 22, 2024 01:00 PM AMBULATORY - MEDICINE [place] [facility] [facility] Feb 29, 2024 09:00 AM AMBULATORY - MEDICINE [place] [facility] [facility] Mar 08, 2024 10:30 AM AMBULATORY - MEDICINE [place] [facility] [facility] Lab Results: +/- 30 days [...] Range Comment Oct 04, 2023 11:44 AM [place] [facility] [place] [facility] FERRITIN Specimen Type: SERUM No comment entered. Ordering Provider: NEENA STEVENS Report Released Date/Time: May 09, 2023 11:25 AM Reporting Lab: [place] [facility] [place] [facility] [address] [facility] [address] Performing Lab: [place] [facility] [place] [address] [address] FERRITIN 73 ng/mL 20-300 Oct 04, 2023 11:44 AM [facility] IRON & TIBC PANEL Specimen Type: SERUM No comment entered. Ordering Provider: NEENA STEVENS Report Released Date/Time: May 09, 2023 11:25 AM Reporting Lab: [facility] [address] [facility] [address] Performing [facility] [address] [facility] [address] TIBC 342 ug/dL 204-475 IRON 96 ug/dL 40-160 Transferrin Saturation 28.1 20.0-50.0 Oct 04, 2023 11:44 AM [facility] MICROALBUMIN CREATININE RATIO PANEL Specimen Type: URINE No comment entered. Ordering Provider: NEENA STEVENS Report Released Date/Time: May 09, 2023 11:25 AM Reporting Lab: [address] [address] [facility] [address] [address] MICROALBUMIN/C REATININE RATIO 89.0 mg/g H 0-29.9 MICROALBUMIN,Q UANTITATIVE 7.5 mg/dL RR UNAVAIL CREATININE URINE 84.27 mg/dL Oct 04, 2023 11:44 AM [facility] CBC Specimen Type: BLOOD No comment entered. Ordering Provider: NEENA STEVENS Report Released Date/Time: May 09, 2023 11:25 AM Reporting Lab[facility] [address] [facility] [address] Performing [facility]: [facility] [address] [address] WBC 7.68 10*3/uL 4.50-11.00 RBC 4.42 10*6/uL 4.23-5.66 HGB 14.1 g/dL 12.8-17 HCT 42.3 39.2-50.4 MCV 95.7 fL 82-99 MCHC 33.3 g/dL 30.8-35.1 PLT 160 10*3/uL 140-360 RDW-CV 14.2 12.0-16.0 MCH 31.9 pg 26.2-32.6 Oct 04, 2023 11:44 AM [facility] BASIC METABOLIC PANEL (non-fasting) Specimen Type: SERUM No comment entered. Ordering Provider: NEENA STEVENS Report Released Date/Time: May 09, 2023 11:25 AM Reporting Lab: [facility] [address] [facility] [address] Performing Lab: [facility] [address] [address] UREA NITROGEN 24 mg/dL 7-25 GLUCOSE 80 [...] Pain Height Weight Body Mass Index Source Oct 11, 2023 09:07 AM 97.3 66 123/73 16 97 7 221 34 [facility] Social History: Smoking Status (Most current) [...] Elena ity Apr 26, 2023 10:00 AM MO-TOBACCO FORMER USER [facility] Tobacco Use History This section includes a history of the smoking, or tobacco-related health factors, that were collected on or before the date of the Encounter. The data comes from the [place] facility where the Encounter took place. Date/Time Smoking Status/Tobacco Use Comment F acility Apr 26, 2023 10:00 AM MO-TOBACCO QUIT 15 YRS OR MORE [place] [facility] [facility] Mar 30, 2022 11:00 AM VA-TOBACCO FORMER USER [facility] [facility] Mar 30, 2022 11:00 AM VA-TOBACCO QUIT 15 YRS OR MORE [facility] [facility] Mar 17, 2021 01:30 PM VA-TOBACCO FORMER USER [facility] [facility] Mar 17, 2021 01:30 PM VA-TOBACCO NEVER USED [facility] [facility] Mar 17, 2021 01:30 PM VA-TOBACCO QUIT 15 YRS OR MORE [facility] [facility] Mar 31, 2020 10:30 AM VA-TOBACCO FORMER USER [facility] [facility] Mar 31, 2020 10:30 AM VA-TOBACCO QUIT 15 YRS OR MORE [facility] [facility] Nov 23, 2018 12:07 PM VA-TOBACCO FORMER USER [facility] [facility] Nov 23, 2018 12:07 PM VA-TOBACCO QUIT 15 YRS OR MORE [facility] [facility] Nov 22, 2017 10:02 AM VA-TOBACCO NEVER USED [facility] [facility] Mar 14, 2017 09:31 AM LIFETIME NON-TOBACCO USER [facility] [facility] Mar 01, 2016 02:51 PM LIFETIME NON-TOBACCO USER [facility] [place] [facility] Feb 10, 2015 09:31 AM QUIT TOBACCO USE > 7 YEARS AGO quit in 1964 [place] [facility] Encounter Notes: All associated encounter notes This section contains the clinical notes associated to the Encounter. Date/Time Encounter Note(s) Provider Source Oct 11, 2023 08:29 AM NEPHROLOGY E & M NOTE: LOCAL TITLE: NEPHROLOGY NOTE STANDARD TITLE: NEPHROLOGY E & M NOTE DATE OF NOTE: OCT 11, 2023@08:29 ENTRY DATE: OCT 11, 2023@08:29:59 AUTHOR: ERIKA STEVENS COSIGNER: URGENCY: STATUS: COMPLETED [...] progression is as follows: #1. CKD stage 3:the patient is without uremic sx. review of labs from October 04, 2023 showed a bicarb(25), normal potassium(4.7) and a creatinine was 2.0 has decreased to 1.96. His urine microalb/cr ratio was 129(05/06) has dropped to 89. His GFR now 33. Will recheck creatinine and GFR on return to determine the trend. No med changes. Will reassess in 6 months. #2. Hypertension:His most recent BP was 123/73 p=66 which is excellent. Will recheck on return. no med changes. [...] supplements. #6. Anemia The patient's H/H was 14.1/43 with a mcv of 96 7/24. His TIBC was 342, iron of 96, ferritin of 73 and TSAT was 28. His iron studies are not better. He states he has been taking the FeSO4 which the patient is encouraged to continue. Will continue ascorbic acid to improve the iron uptake. [...] of active outpatient prescriptions dispensed from this [place] (local) and dispensed from another [place] or [facility] facility (remote) as well as inpatient orders (local, pending and active), local clinic medications, locally documented non-VA medications, and local prescriptions that have or been discontinued in the past 90 days. - All changes in medications, including all non-VA/Herbal/OTC medications were entered into CPRS. /cas/ ERIKA STEVENS M.D. SOLE SCRAPER BONE CHAR KILN TENDER Signed: 10/11/2023 09:22 ERIKA STEVENS [facility]
--- OUTSIDE RECORDS SUMMARY | 2024-03-20 14:00 | XMS_ITS ---
Author Name [facility] [place] [facility] [place] Organization [facility] [place] [facility] [place] Address [address] [place] [address] Care Team Providers Care Pst Specialist Name Role Phone SOFI MANCERA Primary Care [...] [place] [employer] CHARAN Haque Mar 13, 2015 [id number] VERONICA BROWN RT PATIENT MEDICARE (WNR) MEDICARE (M) PART B Aug 12, 2007 PART B [id number] VERONICA BROWN RT PATIENT MEDICARE (WNR) MEDICARE (M) PART A Jan 12, 2004 PART A [id number] VERONICA BROWN RT PATIENT Selected Encounter This section includes the information on record at [place] for the Encounter. Date/Time Encounter Type Encounter Description Reason Provider Source Oct 04, 2023 10:00 AM ACUPUNCT W/O STIMUL ADDL 15M CIH TREATMENT ICD-10-CM M54.9 Dorsalgia, unspecified BRICE WALSH IHE Encounter Template Text not used by [place] Assessments - Encounter Diagnoses This section includes the primary and secondary diagnoses documented for the Encounter. Date/Time Primary/Secondary Diagnosis Diagnosis Name Provider Source Nov 04, 2023 07:48 AM PRIMARY Dorsalgia, unspecified BRICE WALSH [place] [facility] [place] [facility] Nov 04, 2023 07:48 AM SECONDARY Pain in left knee BRICE WALSH [place] [facility] [place] [facility] Plan of Treatment: Future Appointments (+ 6 months) and Future Tests (+/- 45 days) The Plan of Treatment section includes future care activities for the patient from all [place] [facility]. This section includes future appointments and future orders which are active, pending or scheduled. Future Appointments This section includes appointments that were scheduled to occur 6 months from the date of the Encounter, up to a maximum of 20 appointments. The data comes from all [place] treatment facilities. Appointment Date/Time Appointment Type Appointme nt Facility Name Oct 11, 2023 09:00 AM AMBULATORY - [...] [facility] [place] [facility] Jan 29, 2024 10:30 AM AM[facility]UL[facility]ORY [facility]ICINE [facility] [place] [facility] Jan 30, 2024 03:30 PM AMBULATORY - MEDICINE [facility] [place] [facility] 2024 02:30 PM AMBULATORY - MEDICINE [facility] [place] [facility] Feb 05, 2024 11:00 AM AMBULATORY - MEDICINE [facility] [place] [facility] Feb 06, 2024 03:00 PM AMBULATORY - MEDICINE [facility] [place] [facility] Feb 09, 2024 02:00 PM AMBULATORY - MEDICINE [facility] [place] [facility] Feb 12, 2024 11:00 AM AMBULATORY - MEDICINE [facility] [place] [facility] Feb 15, 2024 01:00 PM AMBULATORY - MEDICINE [facility] [place] [facility] Feb 22, 2024 01:00 PM AMBULATORY - MEDICINE [facility] [place] [facility] Feb 29, 2024 09:00 AM AMBULATORY - MEDICINE [place] [facility] [place] [facility] Lab Results: +/- 30 days of the encounter This section includes the Chemistry and Hematology Lab Results on record with [place] for the patient. Radiology Reports and Pathology Reports are provided separately, in subsequent sections. Lab Results This section contains the Chemistry/Hematology Results that were resulted 30 days before or 30 daysafter the date of the Encounter. Date/Time Source Result Type Result - Unit Interpretation Reference Range Comment Oct 04, 2023 11:44 AM [place] [facility] [place] [facility] FERRITIN Specimen Type: SERUM No comment entered. Ordering Provider: NEENA STEVENS Report Released Date/Time: May 09, 2023 11:25 AM Reporting Lab: [place] [facility] [place] [address] [address] Performing Lab: [place] [facility] [place] [address] [address] FERRITIN 73 ng/mL 20-300 Oct 04, 2023 11:44 AM [place] [facility] [place] [facility] CBC Specimen Type: BLOOD No comment entered. Ordering Provider: NEENA STEVENS Report Released Date/Time: May 09, 2023 11:25 AM Reporting Lab: [place] [facility] [place] [facility] [address] [facility] [address] Performing Lab: [place] [facility] [place] [address] [address] WBC 7.68 10*3/uL 4.50-11.00 RBC 4.42 10*6/uL 4.23-5.66 HGB 14.1 g/dL 12.8-17 HCT 42.3 39.2-50.4 MCV 95.7 fL 82-99 MCHC 33.3 g/dL 30.8-35.1 PLT 160 10*3/uL 140-360 RDW-CV 14.2 12.0-16.0 MCH 31.9 pg 26.2-32.6 Oct 04, 2023 11:44 AM [facility] IRON & TIBC PANEL Specimen Type: SERUM No comment entered. Ordering Provider: NEENA STEVENS Report Released Date/Time: May 09, 2023 11:25 AM Reporting Lab: [address] [address] Performing Lab: [facility] [address] TIBC 342 ug/dL 204-475 IRON 96 ug/dL 40-160 Transferrin Saturation 28.1 20.0-50.0 Oct 04, 2023 11:44 AM [facility] MICROALBUMIN CREATININE RATIO PANEL Specimen Type: URINE No comment entered. Ordering Provider: NEENA STEVENS Report Released Date/Time: May 09, 2023 11:25 AM Reporting Lab: [address] [address] Performing Lab: [facility] [address] MICROALBUMIN/C REATININE RATIO 89.0 mg/g H 0-29.9 MICROALBUMIN,Q UANTITATIVE 7.5 mg/dL RR UNAVAIL CREATININE URINE 84.27 mg/dL Oct 04, 2023 11:44 AM [facility] BASIC METABOLIC PANEL (non-fasting) Specimen Type: SERUM No comment entered. Ordering Provider: NEENA STEVENS Report Released Date/Time: May 09, 2023 11:25 AM Reporting Lab: [facility] [address] Performing Lab: [place] [facility] [place] [facility] [address] [facility] [address] UREA NITROGEN 24 mg/dL 7-25 GLUCOSE 80 [...] and tobacco- related health factors from the [place] facility where the Encounter took place. Current Smoking Status This section includes the most current smoking, or tobacco-related health factor, from the [place] facility where the Encounter took place. Date/Time Current Smoking Status Comment María Elena ity Apr 26, 2023 10:00 AM VA-TOBACCO FORMER USER [place] [facility] [place] [facility] Tobacco Use History This section includes a history of the smoking, or tobacco-related health factors, that were collected on or before the date of the Encounter. The data comes from the [place] facility where the Encounter took place. Date/Time Smoking Status/Tobacco Use Comment F acshahbaz Apr 26, 2023 10:00 AM VA-TOBACCO QUIT 15 YRS OR MORE [place] [facility] [place] [facility] Mar [...] 23, 2018 12:07 PM VA-TOBACCO FORMER USER [place] [facility] [place] [facility] Nov 23, 2018 12:07 PM VA-TOBACCO QUIT 15 YRS OR MORE [place] [facility] [place] [facility] Nov 22, 2017 10:02 AM VA-TOBACCO NEVER USED [place] [facility] [place] [facility] Mar 14, 2017 09:31 AM LIFETIME NON-TOBACCO USER [place] [facility] [place] [facility] Mar 01, 2016 02:51 PM LIFETIME NON-TOBACCO USER [place] [facility] [place] [facility] Feb 10, 2015 09:31 AM QUIT TOBACCO USE > 7 YEARS AGO quit in [facility] Encounter Notes: All associated encounter notes This section contains the clinical notes associated to the Encounter. Date/Time Encounter Note(s) Provider Source Oct 04, 2023 03:49 PM ACUPUNCTURE NOTE: LOCAL TITLE: ACUPUNCTURE TREATMENT STANDARD TITLE: ACUPUNCTURE NOTE DATE OF NOTE: OCT 04, 2023@15:49 ENTRY DATE: OCT 04, 2023@15:49:23 AUTHOR: DAE WALSH EXP COSIGNER: URGENCY: STATUS: [...] MCALLISTER Arthritis 716.90 01/24/2007 RE MCALLISTER Date Sep CC / HPI - Monroe presents with Hx of chronic back pain that started during his service. Injured during a parachute jump and never reported injury. Pain was intermittent for many years but in the past 10 years has become constant and progressively worse. reports that walking any distance will induce pain in mid and low back of 810. Makes grocery shopping and exercising difficult. Monroe also states that if he stands for [...] regular no problems. RESPONSE TO PREVIOUS TREATMENT. reports his low back pain is moderately elevated but had done very well with his previous treatment in July. Knee pain is still minimal and Monroe reports overall doing well. OBJECTIVE General: . Patient in no apparent [...] walker, cane ASSESSMENT / SUMMARY Affected Channel: BOLIVAR, TAMIR, GB Medical Decision Making (MDM) * [ [...] ]Pyonex Needle: remove prior to bathing per sifting operator INFORMED CONSENT: Oral Consent obtained on Sep The patient was positioned comfortably. 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
--- OUTSIDE RECORDS SUMMARY | 2024-03-20 14:00 | XMS_ITS | Encounter Summary ---
Author Name [facility] [place] Organization [facility] [place] [place] Address [address] [place] [address] Care Team Providers Care Credit Product Analyst Name Role Phone NERI MANCERA Primary Care [...] [place] MEDICARE JONELLE Haque Mar 13, 2015 [id number] VERONICA BROWN RT PATIENT MEDICARE (WNR) MEDICARE (M) PART B Aug 12, 2007 PART B [id number] VERONICA BROWN RT PATIENT MEDICARE (WNR) MEDICARE (M) PART A Jan 12, 2004 PART A [id number] VERONICA BROWN RT PATIENT Selected Encounter This section includes the information on record at [place] for the Encounter. Date/Time Encounter Type Encounter Description Reason Pro vider Source Oct 04, 2023 11:31 AM Outpatient Encounter PRIMARY CARE/MEDICINE IHE Encounter Template Text not used by [place] Plan of Treatment: Future Appointments (+ 6 months) and Future Tests (+/- 45 days) The Plan of Treatment section includes future care activities for the patient from all [place] [facility]. This section includes future appointments and future orders which are active, pending or scheduled. Future Appointments This section includes appointments that were scheduled to occur 6 months from the date of the Encounter, up to a maximum of 20 appointments. The data comes from all [place] treatment facilities. Appointment Date/Time Appointment Type Appointme nt Facility Name Oct 11, 2023 09:00 AM AMBULATORY - MEDICINE [facility] [place] [facility] Oct 18, 2023 10:00 AM AMBULATORY - MEDICINE [facility] [place] [facility] Oct 30, 2023 09:00 AM AMBULATORY - MEDICINE [facility] [place] [facility] Nov 06, 2023 01:00 PM AMBULATORY - MEDICINE [facility] [place] [facility] Nov 20, 2023 09:30 AM AMBULATORY - MEDICINE [facility] [place] [facility] Dec 18, 2023 09:30 AM AMBULATORY - MEDICINE [facility] [place] [facility] Dec 27, 2023 02:00 PM AMBULATORY - MEDICINE [facility] [place] [facility] Dec 29, 2023 01:30 PM AMBULATORY - MEDICINE [facility] [place] [facility] Jan 01, 2024 02:30 PM AMBULATORY - MEDICINE [facility] [place] [facility] Jan 08, 2024 03:30 PM AMBULATORY - MEDICINE [facility] [place] [facility] Jan 29, 2024 10:30 AM AMBULATORY - MEDICINE [facility] [place] [facility] Jan 30, 2024 03:30 PM AMBULATORY - MEDICINE [facility] [place] [facility] 2024 02:30 PM AMBULATORY - MEDICINE [facility] [place] [facility] Feb 05, 2024 11:00 AM AMBULATORY - MEDICINE [facility] [place] [facility] Feb 06, 2024 03:00 PM AMBULATORY - MEDICINE [facility] [place] [facility] Feb 09, 2024 02:00 PM AMBULATORY - MEDICINE [facility] [place] [facility] Feb 12, 2024 11:00 AM AMBULATORY - MEDICINE [facility] [place] [facility] Feb 15, 2024 01:00 PM AMBULATORY - MEDICINE [place] [facility] [place] [facility] Feb 22, 2024 01:00 PM AMBULATORY - MEDICINE [place] [facility] [place] [facility] Feb 29, 2024 09:00 AM AMBULATORY - [facility]INE [place] [facility] Lab Results: +/- 30 days of the encounter This section includes the Chemistry and Hematology Lab Results on record with [place] for the patient. Radiology Reports and Pathology Reports are provided separately, in subsequent sections. Lab Results This section contains the Chemistry/Hematology Results that were resulted 30 days before or 30 daysafter the date of the Encounter. Date/Time Source Result Type Result - Unit Interpretation Reference Range Comment Oct 04, 2023 11:44 AM [facility] FERRITIN Specimen Type: SERUM No comment entered. Ordering Provider: NEENA STEVENS Report Released Date/Time: May 09, 2023 11:25 AM Reporting Lab: [facility]TR[facility] [address] [address] Performing Lab: [facility]TR[facility] [address] [address] FERRITIN 73 ng/mL 20-300 Oct 04, 2023 11:44 AM [facility] IRON & TIBC PANEL Specimen Type: SERUM No comment entered. Ordering Provider: NEENA STEVENS Report Released Date/Time: May 09, 2023 11:25 AM Reporting Lab: [facility]TRN [facility] [address] [address] Performing Lab: [facility]TRN [place] [address] [address] TIBC 342 ug/dL 204-475 IRON 96 ug/dL 40-160 Transferrin Saturation 28.1 20.0-50.0 Oct 04, 2023 11:44 AM [facility] MICROALBUMIN CREATININE RATIO PANEL Specimen Type: URINE No comment entered. Ordering Provider: NEENA STEVENS Report Released Date/Time: May 09, 2023 11:25 AM Reporting Lab: [facility]TRN [facility] [address] [address] Performing Lab: [facility] [address] [facility] [address] MICROALBUMIN/C REATININE RATIO 89.0 mg/g H 0-29.9 MICROALBUMIN,Q UANTITATIVE 7.5 mg/dL RR UNAVAIL CREATININE URINE 84.27 mg/dL Oct 04, 2023 11:44 AM [facility] CBC Specimen Type: BLOOD No comment entered. Ordering Provider: NEENA STEVENS Report Released Date/Time: May 09, 2023 11:25 AM Reporting Lab: [facility] [address] [facility] [address] Performing Lab: [address] [address] WBC 7.68 10*3/uL 4.50-11.00 RBC 4.42 10*6/uL 4.23-5.66 HGB 14.1 g/dL 12.8-17 HCT 42.3 39.2-50.4 MCV 95.7 fL 82-99 MCHC 33.3 g/dL 30.8-35.1 PLT 160 10*3/uL 140-360 RDW-CV 14.2 12.0-16.0 MCH 31.9 pg 26.2-32.6 Oct 04, 2023 11:44 AM [facility] BASIC METABOLIC PANEL (non-fasting) Specimen Type: SERUM No comment entered. Ordering Provider: NEENA STEVENS Report Released Date/Time: May 09, 2023 11:25 AM Reporting Lab: [address] [address] Performing Lab: [address] [address] UREA NITROGEN 24 mg/dL 7-25 GLUCOSE 80 [...] and tobacco- related health factors from the [place] facility where the Encounter took place. Current Smoking Status This section includes the most current smoking, or tobacco-related health factor, from the [place] facility where the Encounter took place. Date/Time Current Smoking Status Comment María Elena ity Apr 26, 2023 10:00 AM VA-TOBACCO FORMER USER [place] [facility] [place] [facility] Tobacco Use History This section includes a history of the smoking, or tobacco-related health factors, that were collected on or before the date of the Encounter. The data comes from the [place] facility where the Encounter took place. Date/Time Smoking Status/Tobacco Use Comment Gamaliel landin Apr 26, 2023 10:00 AM VA-TOBACCO QUIT 15 YRS OR MORE [place] [facility] [place] [facility] Mar 30, 2022 11:00 AM VA-TOBACCO FORMER USER [facility] [place] [facility] Mar 30, 2022 11:00 AM VA-TOBACCO QUIT 15 YRS OR MORE [place] [facility] [place] [facility] Mar 17, 2021 01:30 PM VA-TOBACCO FORMER USER [facility] [place] [facility] Mar 17, 2021 01:30 PM VA-TOBACCO NEVER USED [place] [facility] [place] [facility] Mar 17, 2021 01:30 PM VA-TOBACCO QUIT 15 YRS OR MORE [facility] [place] [facility] Mar 31, 2020 10:30 AM VA-TOBACCO FORMER USER [facility] [place] [facility] Mar 31, 2020 10:30 AM VA-TOBACCO QUIT 15 YRS OR MORE [facility] [place] [facility] Nov 23, 2018 12:07 PM VA-TOBACCO FORMER USER [facility] [place] [facility] Nov 23, 2018 12:07 PM VA-TOBACCO QUIT 15 YRS OR MORE [facility] [place] [facility] Nov 22, 2017 10:02 AM VA-TOBACCO NEVER USED [place] [facility] [place] [facility] Mar 14, 2017 09:31 AM LIFETIME NON-TOBACCO USER [facility] [place] [facility] Mar 01, 2016 02:51 PM LIFETIME NON-TOBACCO USER [facility] [place] [facility] Feb 10, 2015 09:31 AM QUIT TOBACCO USE > 7 YEARS AGO quit in 1963 [facility] Encounter Notes: All associated encounter notes This section contains the clinical notes associated to the Encounter. Date/Time Encounter Note(s) Provider Source Oct 04, 2023 11:31 AM PRIMARY CARE NOTE: LOCAL TITLE: WALK-IN NOTE PRIMARY CARE (T) STANDARD TITLE: PRIMARY CARE NOTE DATE OF NOTE: OCT 04, 2023@11:31 ENTRY DATE: OCT 04, 2023@11:31:19 AUTHOR: KIRIT JOHNSON EXP COSIGNER: URGENCY: STATUS: COMPLETED WALK-IN NOTE PRIMARY CARE (T) Has ADDENDA <====Click to Start Advanced Medical Support presents to the Primary Care clinic with the following request: [ X ]Medication Renewal/Refill [ ]Consultation with Team RN [ ]Symptoms [ ]Other The Ryan states they are: [ ]Waiting [ X ]Not Waiting No Walk in visit scheduled with PACT Nurse [ X ] At this encounter the Ryan's demographics were verified. [ X ] At this encounter the Ryan's Insurance information was verified. [ X ] At this encounter the below scheduled visits for the Ryan were discussed and appointment reminder card was offered. Future appointments: 10/11/2023 09:00 CWM/NO/NEPHROLOGY/PROV 10/24/2023 11:30 CWM/NO/PODIATRY/NAIL 11/06/2023 13:00 CWM/NO/ACUPUNCTURE R2 12/29/2023 13:30 CWM/NO/ACUPUNCTURE R1 01/01/2024 14:30 CWM/NO/PACT 2 05/08/2024 13:30 NHM/OPTOMETRY/BORASKI PRESENTED HIMSELF TO GET A REFILL ON THE FOLLOWING MEDICATION; RIVAROXABAN TAB 15MG WILL BE WAITING AT THE PHARMACY [facility] TODAY 10/04/2023 THANK YOU. 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 He will ask prescriber Dr. Valdez to fax prescription to [place] pharmacy. /cas/ Neri Mancera MD Staff Physician Signed: 10/04/2023 13:52 KIRIT JOHNSON [facility]
--- OUTSIDE RECORDS SUMMARY | 2024-03-20 14:00 | XMS_ITS ---
Author Name [facility] [facility] [place] Address [address] [place] [address] Care Team Providers Care Chip Tuner Name Role Phone NERI MANCERA Primary Care [...] [facility] CHARAN Haque Mar 13, 2015 [id number] [phone] [id number] VERONICA BROWN RT PATIENT MEDICARE (WNR) MEDICARE (M) PART B Aug 12, 2007 PART B [id number] VERONICA BROWN RT PATIENT MEDICARE (WNR) MEDICARE (M) PART A Jan 12, 2004 PART A [id number] VERONICA BROWN RT PATIENT Selected Encounter This section includes the information on record at [place] for the Encounter. Date/Time Encounter Type Encounter Description Reason Pro vider Source Oct 04, 2023 04:26 PM Outpatient Encounter ADMIN PAT ACTIVTIES (MASNONCT) IHE Encounter Template Text not used by [place] Plan of Treatment: Future Appointments (+ 6 months) and Future Tests (+/- 45 days) The Plan of Treatment section includes [facility] care activities for the [facility] [place] [facility] This section includes future appointments [...] - MEDICINE [facility] Oct 18, 2023 10:00 AM AMBULATORY - MEDICINE [facility] Oct 30, 2023 09:00 AM AMBULATORY - MEDICINE [facility] Nov 06, 2023 01:00 PM AMBULATORY - [facility]IC[facility] Nov 20, 2023 09:30 AM AMBULATORY - MEDICINE [facility] Dec 18, 2023 09:30 AM AMBULATORY - [facility] Dec 27, 2023 02:00 PM AMBULATORY - MED[facility]INE [facility] Dec 29, 2023 01:30 PM AMBULATORY - MEDICINE [facility] Jan 01, 2024 02:30 PM AMBULATORY - MEDICINE [facility] Jan 08, 2024 03:30 PM AMBULATORY - MED[facility]INE [facility] Jan 29, 2024 10:30 AM AMBULATORY - [facility] Jan 30, 2024 03:30 PM AMBULATORY - MEDICINE [facility] 2024 02:30 PM AMBULATORY - [facility]INE [facility] Feb 05, 2024 11:00 AM AMBULATORY - MEDICINE [facility] Feb 06, 2024 03:00 PM AMBULATORY - MEDICINE [facility] Feb 09, 2024 02:00 PM AMBULATORY - MEDICINE [facility] Feb 12, 2024 11:00 AM AMBULATORY - [facility] Feb 15, 2024 01:00 PM AMBULATORY - MEDICINE [facility] Feb 22, 2024 01:00 PM [facility] Feb 29, 2024 09:00 AM [facility] Lab Results: +/- 30 days [...] Range Comment Oct 04, 2023 11:44 AM [facility] FERRITIN Specimen Type: SERUM No comment entered. Ordering Provider: NEENA STEVENS Report Released Date/Time: May 09, 2023 11:25 AM Reporting Lab[facility] [address] [address] Performing Lab: [facility] [address] FERRITIN 73 ng/mL 20-300 Oct 04, 2023 11:44 AM [facility] CBC Specimen Type: BLOOD No comment entered. Ordering Provider: NEENA STEVENS Report Released Date/Time: May 09, 2023 11:25 AM Reporting Lab: [facility] [address] [address] Performing Lab: [facility] [address] WBC 7.68 10*3/uL 4.50-11.00 RBC 4.42 10*6/uL 4.23-5.66 HGB 14.1 g/dL 12.8-17 HCT 42.3 39.2-50.4 MCV 95.7 fL 82-99 MCHC 33.3 g/dL 30.8-35.1 PLT 160 10*3/uL 140-360 RDW-CV 14.2 12.0-16.0 MCH 31.9 pg 26.2-32.6 Oct 04, 2023 11:44 AM [facility] IRON & TIBC PANEL Specimen Type: SERUM No comment entered. Ordering Provider: NEENA STEVENS Report Released Date/Time: May 09, 2023 11:25 AM Reporting Lab: [facility] [address] [facility] [address] Performing Lab: [address] [address] TIBC 342 ug/dL 204-475 IRON 96 ug/dL 40-160 Transferrin Saturation 28.1 20.0-50.0 Oct 04, 2023 11:44 AM [facility] MICROALBUMIN CREATININE RATIO PANEL Specimen Type: URINE No comment entered. Ordering Provider: NEENA STEVENS Report Released Date/Time: May 09, 2023 11:25 AM Reporting Lab: [address] [address] Performing Lab: [address] [address] MICROALBUMIN/C REATININE RATIO 89.0 mg/g H 0-29.9 MICROALBUMIN,Q UANTITATIVE 7.5 mg/dL RR UNAVAIL CREATININE URINE 84.27 mg/dL Oct 04, 2023 11:44 AM [facility] BASIC METABOLIC PANEL (non-fasting) Specimen Type: SERUM No comment entered. Ordering Provider: NEENA STEVENS Report Released Date/Time: May 09, 2023 11:25 AM Reporting Lab: [address] [address] Performing Lab: [address] [address] UREA NITROGEN 24 mg/dL 7-25 GLUCOSE 80 mg/dL 65-100 SODIUM 142 mmol/L 135-145 POTASSIUM 4.7 mmol/L 3.5-5.0 CHLORIDE 109 mmol/L 100-110 CO2 25 meq/L 20-30 CREATININE, Serum 1.96 mg/dL H 0.50-1.40 eGFR(CKD-EPI 2021) 33 mL/min L >60 Social History: Smoking [...] VA-TOBACCO FORMER USER [facility] Tobacco Use History This section includes a history of the smoking, or tobacco-related health factors, that were collected on or before the date of the Encounter. The data comes from the [place] facility where the Encounter took place. Date/Time Smoking Status/Tobacco Use Comment F [email or web address] Apr 26, 2023 10:00 AM VA-TOBACCO QUIT 15 YRS OR MORE [facility] Mar 30, 2022 11:00 AM VA-TOBACCO FORMER USER [facility] Mar 30, 2022 11:00 AM VA-TOBACCO QUIT 15 YRS OR MORE [facility] Mar 17, 2021 01:30 PM VA-TOBACCO FORMER USER [facility] Mar 17, 2021 01:30 PM VA-TOBACCO NEVER USED [facility] Mar 17, 2021 01:30 PM VA-TOBACCO QUIT 15 YRS OR MORE [facility] Mar 31, 2020 10:30 AM VA-TOBACCO FORMER USER [facility] Mar 31, 2020 10:30 AM VA-TOBACCO QUIT 15 YRS OR MORE [facility] Nov 23, 2018 12:07 PM VA-TOBACCO FORMER USER [facility] Nov 23, 2018 12:07 PM VA-TOBACCO QUIT 15 YRS OR MORE [facility] Nov 22, 2017 10:02 AM VA-TOBACCO NEVER USED [facility] Mar 14, 2017 09:31 AM LIFETIME NON-TOBACCO USER [facility] Mar 01, 2016 02:51 PM LIFETIME NON-TOBACCO USER [facility] Feb 10, 2015 09:31 AM QUIT TOBACCO USE > 7 YEARS AGO quit in 1964 [facility] Encounter Notes: All associated encounter notes This section contains the clinical notes associated to the Encounter. 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 He will ask prescriber Dr. Valdez to fax prescription to [place] pharmacy. /cas/ Neri Mancera MD Staff Physician Signed: 10/04/2023 16:40 MO ISAAC [facility]
--- OUTSIDE RECORDS SUMMARY | 2024-03-20 14:00 | XMS_ITS ---
Author Name [facility] [place] Organization [facility] [place] [facility] [place] Address [address] [place] [address] Care Team Providers Care [place] Coroner Name Role Phone NERI MANCERA Primary Care [...] [place] MEDICARE [facility] MEDEX CHARAN Haque Mar 13, 2015 [id number] VERONICA BROWN RT PATIENT MEDICARE (WNR) MEDICARE (M) PART B Aug 12, 2007 PART B [id number] VERONICA BROWN RT PATIENT MEDICARE (WNR) MEDICARE (M) PART A Jan 12, 2004 PART A [id number] VERONICA BROWN RT PATIENT Selected Encounter This section includes the information on record at [place] for the Encounter. Date/Time Encounter Type Encounter Description Reason Provider Source Oct 02, 2023 09:30 AM MTMS BY PHARM ADDL 15 MIN TELEPHONE PRIMARY CARE ICD-10-CM E11.9 Type 2 diabetes mellitus without complications RENETTA FRENCH Encounter Template Text not used by [place] Assessments - Encounter Diagnoses This section includes the primary and secondary diagnoses documented for the Encounter. Date/Time Primary/Secondary Diagnosis Diagnosis Name Provider Source Oct 02, 2023 09:30 AM PRIMARY Type 2 diabetes mellitus without complications RENETTA FRENCH [place] [facility] [place] [facility] Plan of Treatment: Future Appointments (+ 6 months) and Future Tests (+/- 45 days) The Plan of Treatment section includes future care activities for the patient from all [place] treatmentfacilities. This section includes future appointments and future orders which are active, pending or scheduled. Future Appointments This section includes appointments that were scheduled to occur 6 months from the date of the Encounter, up to a maximum of 20 appointments. The data comes from all [place] treatment facilities. Appointment Date/Time Appointment Type Appointme nt Facility Name Oct 04, 2023 10:00 AM [facility] [place]ICINE [place] [facility] [place] [facility] Oct 11, 2023 09:00 AM [facility] [place] [facility]ICINE [place] [facility] [place] [facility] Oct 18, 2023 10:00 AM [facility]ICINE [place] [facility] [place] [facility] Oct 30, 2023 09:00 AM AM[facility]ULATORY [facility] MEDICINE [facility] [place] [facility] Nov 06, 2023 01:00 PM AMBULATORY [facility] MEDICINE [facility] [place] [facility] Nov 20, 2023 09:30 AM [facility]ULATORY [facility] MEDICINE [facility] [place] [facility] Dec 18, 2023 09:30 AM AM[facility]ULATORY [facility] MEDICINE [facility] [place] [facility] Dec 27, 2023 02:00 PM AMBULATORY [facility] MEDICINE [facility] [place] [facility] Dec 29, 2023 01:30 PM AMBULATORY [facility] MEDICINE [facility] [place] [facility] Jan 01, 2024 02:30 PM AMBULATORY [facility] MEDICINE [facility] [place] [facility] Jan 08, 2024 03:30 PM AMBULATORY - MEDICINE [facility] [place] [facility] Jan 29, 2024 10:30 AM AMBULATORY - MEDICINE [facility] [place] [facility] Jan 30, 2024 03:30 PM AMBULATORY - MEDICINE [facility] [place] [facility] 2024 02:30 PM AMBULATORY [facility] MEDICINE [facility] [place] [facility] Feb 05, 2024 11:00 AM AMBULATORY - [place]ICINE [place] [facility] [place] [facility] Feb 06, 2024 03:00 PM AMBULATORY - [place]ICINE [place] [facility] [place] [facility] Feb 09, 2024 02:00 PM AMBULATORY - [place]ICINE [place] [facility] [place] [facility] Feb 12, 2024 11:00 AM AMBULATORY - [place]ICINE [place] [facility] [place] [facility] Feb 15, 2024 01:00 PM AMBULATORY - [place]ICINE [place] [facility] [place] [facility] Feb 22, 2024 01:00 PM [facility] [place] [facility] Lab Results: +/- 30 days of the [...] Range Comment Oct 04, 2023 11:44 AM [facility] FERRITIN Specimen Type: SERUM No comment entered. Ordering Provider: NEENA STEVENS Report Released Date/Time: May 09, 2023 11:25 AM Reporting Lab: [facility] [address] [facility] [phone] Performing Lab: [facility] [address] FERRITIN 73 ng/mL 20-300 Oct 04, 2023 11:44 AM [facility] IRON & TIBC PANEL Specimen Type: SERUM No comment entered. Ordering Provider: NEENA STEVENS Report Released Date/Time: May 09, 2023 11:25 AM Reporting Lab: [facility] [place] [facility] [address] [facility] [phone] Performing Lab: [facility]TR[facility] [address] [facility] [phone] TIBC 342 ug/dL 204-475 IRON 96 ug/dL 40-160 Transferrin Saturation 28.1 20.0-50.0 Oct 04, 2023 11:44 AM [facility] CBC Specimen Type: BLOOD No comment entered. Ordering Provider: NEENA STEVENS Report Released Date/Time: May 09, 2023 11:25 AM Reporting [facility] [address] [facility] [id number] Performing Lab: [facility] [address] [address] WBC 7.68 10*3/uL 4.50-11.00 RBC 4.42 10*6/uL 4.23-5.66 HGB 14.1 g/dL 12.8-17 HCT 42.3 39.2-50.4 MCV 95.7 fL 82-99 MCHC 33.3 g/dL 30.8-35.1 PLT 160 10*3/uL 140-360 RDW-CV 14.2 12.0-16.0 MCH 31.9 pg 26.2-32.6 Oct 04, 2023 11:44 AM [facility] MICROALBUMIN CREATININE RATIO PANEL Specimen Type: URINE No comment entered. Ordering Provider: NEENA STEVENS Report Released Date/Time: May 09, 2023 11:25 AM Reporting Lab[facility] [address] [facility] [phone] Performing [facility]: [facility] [address] [address] MICROALBUMIN/C REATININE RATIO 89.0 mg/g H 0-29.9 MICROALBUMIN,Q UANTITATIVE 7.5 mg/dL RR UNAVAIL CREATININE URINE 84.27 mg/dL Oct 04, 2023 11:44 AM [facility] BASIC METABOLIC PANEL (non-fasting) Specimen Type: SERUM No comment entered. Ordering Provider: NEENA STEVENS Report Released Date/Time: May 09, 2023 11:25 AM Reporting [facility] [address] [facility] [phone] Performing Lab: [facility] [address] [address] UREA NITROGEN 24 mg/dL 7-25 GLUCOSE 80 [...] VA-TOBACCO FORMER USER [place] [facility] [place] [facility] Tobacco Use History This section includes a history of the smoking, or tobacco-related health factors, that were collected on or before the date of the Encounter. The data comes from the [place] facility where the Encounter took place. Date/Time Smoking Status/Tobacco Use Comment F acility Apr 26, 2023 10:00 AM VA-TOBACCO QUIT 15 YRS OR MORE [facility] [place] [facility] Mar 30, 2022 11:00 AM VA-TOBACCO FORMER USER [place] [facility] [place] [facility] Mar 30, 2022 11:00 AM VA-TOBACCO QUIT 15 YRS OR MORE [facility] [place] [facility] Mar 17, 2021 01:30 PM VA-TOBACCO FORMER USER [place] [facility] [place] [facility] Mar 17, 2021 01:30 PM VA-TOBACCO NEVER USED [place] [facility] [place] [facility] Mar 17, 2021 01:30 PM VA-TOBACCO QUIT 15 YRS OR MORE [facility] [place] [facility] Mar 31, 2020 10:30 AM VA-TOBACCO FORMER USER [place] [facility] [place] [facility] Mar 31, 2020 10:30 AM VA-TOBACCO QUIT 15 YRS OR MORE [facility] [place] [facility] Nov 23, 2018 12:07 PM VA-TOBACCO FORMER USER [place] [facility] [place] [facility] Nov 23, 2018 12:07 PM VA-TOBACCO QUIT 15 YRS OR MORE [place] [facility] [place] [facility] Nov 22, 2017 10:02 AM VA-TOBACCO NEVER USED [place] [facility] [place] [facility] Mar 14, 2017 09:31 AM LIFETIME NON-TOBACCO USER [place] [facility] [place] [facility] Mar 01, 2016 02:51 PM LIFETIME NON-TOBACCO USER [place] [facility] [place] [facility] Feb 10, 2015 09:31 AM QUIT TOBACCO USE > 7 YEARS AGO quit in 1964 [place] [facility] Encounter Notes: All associated encounter notes This section contains the clinical notes associated to the Encounter. Date/Time Encounter Note(s) Provider Source Oct 16, 2023 03:17 PM ADDENDUM: LOCAL TITLE: Addendum STANDARD TITLE: ADDENDUM DATE OF NOTE: OCT 16, 2023@15:17:01 ENTRY DATE: OCT 16, 2023@15:17:02 AUTHOR: RENETTA FRENCH EXP COSIGNER: URGENCY: STATUS: COMPLETED AMSA, please schedule appointment for: - Cwm/No/Tele/Pharm/Pact 2 Please schedule for 10/30/23 @0930 Thank you! /cas/ RENETTA FRENCH PHARMD, BCPS CLINICAL PHARMACIST PRACTITIONER Signed: 10/16/2023 15:17 Receipt Acknowledged By: 10/16/2023 15:27 /es/ RENEE MORRIS AMSA --- Original Document --- 10/02/23 TELEPHONE NOTE/PHARMACY: JACQUELYN BROWN, 83 yo WHITE MALE, presents for telephone follow-up for diabetes management. OCT 02, 2023 Known Allergies: METFORMIN, LISINOPRIL, ATORVASTATIN Subjective: referred to pharmacy clinic for diabetes management. At time of last visit, semaglutide was initiated and insulin glargine-yfgn was reduced. Today pt reports he is doing well. Denies any s/sx of hypoglycemia since last visit. Pt denies ADRs to semaglutide. Pt has had three doses so far and has not noticed any N/V/D/C, changes to vision, abdominal pain, or changes to voice. Pt has started going to the gym and has cut back on what he is eating . Pt states he has lost ~1 pound. Pt has not started insulin-glargine yfgn pens yet but will start on 10/08/23 when his last vial expires. Pt due to start 0.5mg semaglutide on 10/14/23. Target Goals: A1C: <8%; FB-150 mg/dl Personal goals: - Maintain diabetes - Lose weight - eliminate insulin Objective: Diabetes Medication Regimen: Current diabetes medications: - insulin glargine-yfgn 16 units in the evening - Semaglutide 0.25 mg once weekly Previous diabetes medications: - metformin - insulin [...] prescribed but then discontinued. SMBG: FBG PPBG 09/24/23 125 142 09/25/23 109 167 09/26/23 123 118 09/27/23 116 148 09/28/23 111 151 09/29/23 124 134 09/30/23 104 122 10/01/23 94 199 Avg 113 147 FBG PPBG 09/11/23 110 09/12/23 111 190 [...] Pt currently at goal (A1C 6.3% 08/23/23). Pt congratulated on LSMs and encouraged to continue (eliminating sweets and going to the gym). Pt to increase semaglutide to 0.5 mg starting 10/14/23. Will reduce insulin glargine-yfgn further. CARDIOVASCULAR: For patients 60 years and over with Diabetes, recommend a goal of <140/90, with added benefit of reducing SBP closer to 130. 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 (To start 10/14/23) - Medications reconciled - Otherwise continue current medications Lifestyle modifications: - Continue to SMBG 2x/day - Monitor for s/sx hypoglycemia and contact clinic if BG consistently <70mg/dL - Healthy dietary and lifestyle modifications encouraged - Repeat A1c: 02/2024 MISC: - Assess tolerability with telephone f/u, then order prescription for mail. EDUCATION -A shared decision-making approach was used in the development of this plan, involving the Mcl[place], clinician, and any caregivers present. The was provided the opportunity express questions or concerns, and the plan was adjusted as needed to address these concerns. -Reviewed with Mclouth any new medications, changes to the medication list, education, and plan from today's visit. Patient (and/or caregiver) verbalized understanding of the plan, including possible known risks and benefits, and had no additional questions. RTC: Will call pt on 10/16/23 (Tele)(landline) Time Spent: 30 minutes PBM PharmD Pharmacotherapy Rem V12: PHARMACIST INTERVENTIONS: TYPE 2 DIABETES MELLITUS Medication Intervention(s) Adjust dose or frequency of current medication due to other reason Medication reconciliation (changes to active VA and non-VA medication lists to reconcile differences) No changes to medication lists made (medication review completed, no discrepancies identified) /cas/ DIGNA MAYESD, BCPS CLINICAL PHARMACIST PRACTITIONER Signed: 10/02/2023 09:58 10/16/2023 ADDENDUM STATUS: COMPLETED Called to assess tolerability of new dose of semaglutide. Pt reports he does not feel any different than the 0.25 mg (slight nausea but bareable ). Mclouth describes a change in reading vision in left eye. Pt is unsure if this is progression of macular edema or old age or due to medication. Pt followed with Non-VA optometry for second opinion. Noted slight change in prescription and scarring of retina. Optometry did not think it was from the medication . This CPP has attempted to contact Dr Arcos from [facility] [phone] for notes. LVM. Instructed pt to call Retinal Specialist Esteban from [facility] for follow-up. Note that since starting semaglutide, glucose has not changed drastically (see below). Sometimes transient changes vision may occur as a result of rapidly fluctuating blood glucose values. While initiating and titrating semaglutide, insulin glargine yfgn has been titrated from 20 units to 16 units to 12 units as pt continues semaglutide. Date FBG 2hr PPBG 10/16/23 138 10/15/23 107 144 10/14/23 111 161 10/13/23 102 152 10/12/23 115 180 10/11/23 155 10/10/23 145 10/09/23 172 Average: 115 158 FBG PPBG 09/24/23 125 142 09/25/23 109 167 09/26/23 123 118 09/27/23 116 148 09/28/23 111 151 09/29/23 124 134 09/30/23 104 122 10/01/23 94 199 Avg 113 147 FBG PPBG 09/11/23 110 09/12/23 111 190 [...] 145 09/10/23 115 176 Average: 120 177 Pt also notes that that 7 days ago he had a numbness/tingling in his left arm. States this has happened at least three times over the last few years and resolved within a few minutes . Pt has told non-va cardiology about this in the past. Pt previously declined to go to hospital as he has been evaluated for this and they found nothing . Instructed pt on the s/sx of stroke and that he is at a higher risk with diagnosis of afib. verbalizes understanding to go to ER if this happens in the future. As pt titrated to 0.5 mg yesterday, instructed pt to titrate insulin glargine yfgn to 10 units once daily. Will follow- up 10/30/23 @0930 to assess tolerability and make changes as needed. Pt instructed to contact CPP for questions, concerns, ADRs, etc as needed. Will alert PCP as ADRIANA wright/ RENETTA FRENCH, PHARMD, BCPS CLINICAL PHARMACIST PRACTITIONER Signed: 10/16/2023 15:16 Receipt Acknowledged By: * AWAITING SIGNATURE * NERI MANCERA 10/16/2023 ADDENDUM STATUS: UNSIGNED You may not VIEW this UNSIGNED Addendum. RENETTA FRENCH [facility] [place] [facility] Oct 16, 2023 10:04 AM ADDENDUM: LOCAL TITLE: Addendum STANDARD TITLE: ADDENDUM DATE OF NOTE: OCT 16, 2023@10:04:53 ENTRY DATE: OCT 16, 2023@10:04:54 AUTHOR: RENETTA FRENCH EXP COSIGNER: URGENCY: STATUS: COMPLETED Called to assess tolerability of new dose of semaglutide. Pt reports he does not feel any different than the 0.25 mg (slight nausea but bareable ). describes a change in reading vision in left eye. Pt is unsure if this is progression of macular edema or old age or due to medication. Pt followed with Non-VA optometry for second opinion. Noted slight change in prescription and scarring of retina. Optometry did not think it was from the medication . This CPP has attempted to contact Dr Arcos from [facility] for notes. LVM. Instructed pt to call Retinal Specialist Esteban from [facility] for follow-up. Note that since starting semaglutide, glucose has not changed drastically (see below). Sometimes transient changes vision may occur as a result of rapidly fluctuating blood glucose values. While initiating and titrating semaglutide, insulin glargine yfgn has been titrated from 20 units to 16 units to 12 units as pt continues semaglutide. Date FBG 2hr PPBG 10/16/23 138 10/15/23 107 144 10/14/23 111 161 10/13/23 102 152 10/12/23 115 180 10/11/23 155 10/10/23 145 10/09/23 172 Average: 115 158 FBG PPBG 09/24/23 125 142 09/25/23 109 167 09/26/23 123 118 09/27/23 116 148 09/28/23 111 151 09/29/23 124 134 09/30/23 104 122 10/01/23 94 199 Avg 113 147 FBG PPBG 09/11/23 110 09/12/23 111 190 [...] 145 09/10/23 115 176 Average: 120 177 Pt also notes that that 7 days ago he had a numbness/tingling in his left arm. States this has happened at least three times over the last few years and resolved within a few minutes . Pt has told non-va cardiology about this in the past. Pt previously declined to go to hospital as he has been evaluated for this and they found nothing . Instructed pt on the s/sx of stroke and that he is at a higher risk with diagnosis of afib. [place]outh verbalizes understanding to go to ER if this happens in the future. As pt titrated to 0.5 mg yesterday, instructed pt to titrate insulin glargine yfgn to 10 units once daily. Will follow- up 10/30/23 @0930 to assess tolerability and make changes as needed. Pt instructed to contact CPP for questions, concerns, ADRs, etc as needed. Will alert PCP as ADRIANA /cas/ RENETTA FRENCH, DIGNAD, BCPS CLINICAL PHARMACIST PRACTITIONER Signed: 10/16/2023 15:16 Receipt Acknowledged By: 10/17/2023 15:11 /cas/ Neri Mancera MD Staff Physician --- Original Document --- 10/02/23 TELEPHONE NOTE/PHARMACY: JACQUELYN BROWN, 83 yo WHITE MALE, presents for telephone follow-up for diabetes management. OCT 02, 2023 Known Allergies: METFORMIN, LISINOPRIL, ATORVASTATIN Subjective: [place] referred to pharmacy clinic for diabetes management. At time of last visit, semaglutide was initiated and insulin glargine-yfgn was reduced. Today pt reports he is doing well. Denies any s/sx of hypoglycemia since last visit. Pt denies ADRs to semaglutide. Pt has had three doses so far and has not noticed any N/V/D/C, changes to vision, abdominal pain, or changes to voice. Pt has started going to the gym and has cut back on what he is eating . Pt states he has lost ~1 pound. Pt has not started insulin-glargine yfgn pens yet but will start on 10/08/23 when his last vial expires. Pt due to start 0.5mg semaglutide on 10/14/23. Target Goals: A1C: <8%; FB-150 mg/dl Personal goals: - Maintain diabetes - Lose weight - eliminate insulin Objective: Diabetes Medication Regimen: Current diabetes medications: - insulin glargine-yfgn 16 units in the evening - Semaglutide 0.25 mg once weekly Previous diabetes medications: - metformin - insulin [...] prescribed but then discontinued. SMBG: FBG PPBG 09/24/23 125 142 09/25/23 109 167 09/26/23 123 118 09/27/23 116 148 09/28/23 111 151 09/29/23 124 134 09/30/23 104 122 10/01/23 94 199 Avg 113 147 FBG PPBG 09/11/23 110 09/12/23 111 190 [...] Pt currently at goal (A1C 6.3% 08/23/23). Pt congratulated on LSMs and encouraged to continue (eliminating sweets and going to the gym). Pt to increase semaglutide to 0.5 mg starting 10/14/23. Will reduce insulin glargine-yfgn further. CARDIOVASCULAR: For patients 60 years and over with Diabetes, recommend a goal of <140/90, with added benefit of reducing SBP closer to 130. 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 (To start 10/14/23) - Medications reconciled - Otherwise continue current medications Lifestyle modifications: - Continue to SMBG 2x/day - Monitor for s/sx hypoglycemia and contact clinic if BG consistently <70mg/dL - Healthy dietary and lifestyle modifications encouraged - Repeat A1c: 02/2024 MISC: - Assess tolerability with telephone f/u, then order prescription for mail. EDUCATION -A shared decision-making approach was used in the development of this plan, involving the [place], clinician, and any caregivers present. The was provided the opportunity express questions or concerns, and the plan was adjusted as needed to address these concerns. -Reviewed with any new medications, changes to the medication list, education, and plan from today's visit. Patient (and/or caregiver) verbalized understanding of the plan, including possible known risks and benefits, and had no additional questions. RTC: Will call pt on 10/16/23 (Tele)(landline) Time Spent: 30 minutes PBM PharmD Pharmacotherapy Rem V12: PHARMACIST INTERVENTIONS: TYPE 2 DIABETES MELLITUS Medication Intervention(s) Adjust dose or frequency of current medication due to other reason Medication reconciliation (changes to active VA and non-VA medication lists to reconcile differences) No changes to medication lists made (medication review completed, no discrepancies identified) /cas/ DIGNA MAYESD, BCPS CLINICAL PHARMACIST PRACTITIONER Signed: 10/02/2023 09:58 10/16/2023 ADDENDUM STATUS: COMPLETED AMSA, please schedule appointment for: - Cwm/No/Tele/Pharm/Pact 2 Please schedule for 10/30/23 @0947 Thank you! /aida FRENCH PHARMD, BCPS CLINICAL PHARMACIST PRACTITIONER Signed: 10/16/2023 15:17 Receipt Acknowledged By: 10/16/2023 15:27 /aida MICHEL 10/16/2023 ADDENDUM STATUS: COMPLETED AMSA spoke with provider as RTC date/time indicated was already filled. Provider asked for to be scheduled on 10/30/23 at 9am, Overbook slot. [place] scheduled per Provider direction. /aida MICHEL Signed: 10/16/2023 15:29 RENETTA FRENCH [facility] [place] [facility] Oct 02, 2023 09:27 AM PHARMACY TELEPHONE ENCOUNTER NOTE: LOCAL TITLE: TELEPHONE NOTE/PHARMACY STANDARD TITLE: PHARMACY TELEPHONE ENCOUNTER NOTE DATE OF NOTE: OCT 02, 2023@09:27 ENTRY DATE: OCT 02, 2023@09:27:48 AUTHOR: RENETTA FRENCH EXP COSIGNER: URGENCY: STATUS: COMPLETED TELEPHONE NOTE/PHARMACY Has ADDENDA JACQUELYN BROWN, 83 yo WHITE MALE, presents for telephone follow-up for diabetes management. OCT 02, 2023 Known Allergies: METFORMIN, LISINOPRIL, ATORVASTATIN Subjective: [place] referred to pharmacy clinic for diabetes management. At time of last visit, semaglutide was initiated and insulin glargine-yfgn was reduced. Today pt reports he is doing well. Denies any s/sx of hypoglycemia since last visit. Pt denies ADRs to semaglutide. Pt has had three doses so far and has not noticed any N/V/D/C, changes to vision, abdominal pain, or changes to voice. Pt has started going to the gym and has cut back on what he is eating . Pt states he has lost ~1 pound. Pt has not started insulin-glargine yfgn pens yet but will start on 10/08/23 when his last vial expires. Pt due to start 0.5mg semaglutide on 10/14/23. Target Goals: A1C: <8%; FB-150 mg/dl Personal goals: - Maintain diabetes - Lose weight - eliminate insulin Objective: Diabetes Medication Regimen: Current diabetes medications: - insulin glargine-yfgn 16 units in the evening - Semaglutide 0.25 mg once weekly Previous diabetes medications: - metformin - insulin [...] prescribed but then discontinued. SMBG: FBG PPBG 09/24/23 125 142 09/25/23 109 167 09/26/23 123 118 09/27/23 116 148 09/28/23 111 151 09/29/23 124 134 09/30/23 104 122 10/01/23 94 199 Avg 113 147 FBG PPBG 09/11/23 110 09/12/23 111 190 [...] Pt currently at goal (A1C 6.3% 08/23/23). Pt congratulated on LSMs and encouraged to continue (eliminating sweets and going to the gym). Pt to increase semaglutide to 0.5 mg starting 10/14/23. Will reduce insulin glargine-yfgn further. CARDIOVASCULAR: For patients 60 years and over with Diabetes, recommend a goal of <140/90, with added benefit of reducing SBP closer to 130. 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 (To start 10/14/23) - Medications reconciled - Otherwise continue current medications Lifestyle modifications: - Continue to SMBG 2x/day - Monitor for s/sx hypoglycemia and contact clinic if BG consistently <70mg/dL - Healthy dietary and lifestyle modifications encouraged - Repeat A1c: 02/2024 MISC: - Assess tolerability with telephone f/u, then order prescription for mail. EDUCATION -A shared decision-making approach was used in the development of this plan, involving the , clinician, and any caregivers present. The Mclouth was provided the opportunity express questions or concerns, and the plan was adjusted as needed to address these concerns. -Reviewed with any new medications, changes to the medication list, education, and plan from today's visit. Patient (and/or caregiver) verbalized understanding of the plan, including possible known risks and benefits, and had no additional questions. RTC: Will call pt on 10/16/23 (Tele)(landline) Time Spent: 30 minutes PBM PharmD Pharmacotherapy Rem V12: PHARMACIST INTERVENTIONS: TYPE 2 DIABETES MELLITUS Medication Intervention(s) Adjust dose or frequency of current medication due to other reason Medication reconciliation (changes to active VA and non-VA medication lists to reconcile differences) No changes to medication lists made (medication review completed, no discrepancies identified) /cas/ RENETTA FRENCH PHARMD, [facility] CLINICAL PHARMACIST PRACTITIONER Signed: 10/02/2023 09:58 10/16/2023 ADDENDUM STATUS: COMPLETED Called to assess tolerability of new dose of semaglutide. Pt reports he does not feel any different than the 0.25 mg (slight nausea but bareable ). describes a change in reading vision in left eye. Pt is unsure if this is progression of macular edema or old age or due to medication. Pt followed with Non-VA optometry for second opinion. Noted slight change in prescription and scarring of retina. Optometry did not think it was from the medication . This CPP has attempted to contact Dr Arcos from [facility] for notes. LVM. Instructed pt to call Retinal Specialist Esteban from [facility] for follow-up. Note that since starting semaglutide, glucose has not changed drastically (see below). Sometimes transient changes vision may occur as a result of rapidly fluctuating blood glucose values. While initiating and titrating semaglutide, insulin glargine yfgn has been titrated from 20 units to 16 units to 12 units as pt continues semaglutide. Date FBG 2hr PPBG 10/16/23 138 10/15/23 107 144 10/14/23 111 161 10/13/23 102 152 10/12/23 115 180 10/11/23 155 10/10/23 145 10/09/23 172 Average: 115 158 FBG PPBG 09/24/23 125 142 09/25/23 109 167 09/26/23 123 118 09/27/23 116 148 09/28/23 111 151 09/29/23 124 134 09/30/23 104 122 10/01/23 94 199 Avg 113 147 FBG PPBG 09/11/23 110 09/12/23 111 190 [...] 145 09/10/23 115 176 Average: 120 177 Pt also notes that that 7 days ago he had a numbness/tingling in his left arm. States this has happened at least three times over the last few years and resolved within a few minutes . Pt has told non-va cardiology about this in the past. Pt previously declined to go to hospital as he has been evaluated for this and they found nothing . Instructed pt on the s/sx of stroke and that he is at a higher risk with diagnosis of afib. Mclouth verbalizes understanding to go to ER if this happens in the future. As pt titrated to 0.5 mg yesterday, instructed pt to titrate insulin glargine yfgn to 10 units once daily. Will follow- up 10/30/23 @0930 to assess tolerability and make changes as needed. Pt instructed to contact CPP for questions, concerns, ADRs, etc as needed. Will alert PCP as ADRIANA /cas/ DIGNA MAYESD, BCPS CLINICAL PHARMACIST PRACTITIONER Signed: 10/16/2023 15:16 Receipt Acknowledged By: 10/17/2023 15:11 /cas/ Neri Mancera MD Staff Physician 10/16/2023 ADDENDUM STATUS: COMPLETED AMSA, please schedule appointment for: - Cwm/No/Tele/Pharm/Pact 2 Please schedule for 10/30/23 @0952 Thank you! /aida FRENCH PHARMD, BCPS CLINICAL PHARMACIST PRACTITIONER Signed: 10/16/2023 15:17 Receipt Acknowledged By: 10/16/2023 15:27 /cas/ RENEE MICHEL 10/16/2023 ADDENDUM STATUS: COMPLETED AMSA spoke with provider as RTC date/time indicated was already filled. Provider asked for Mclouth to be scheduled on 10/30/23 at 9am, Overbook slot. Mclouth scheduled per Provider direction. /cas/ RENEE MICHEL Signed: 10/16/2023 15:29 10/19/2023 ADDENDUM STATUS: COMPLETED Received call from Dr Arcos from [facility] ([phone]). States vision in left eye was 20/50, corrected to 20/40. Not concerned of change. 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 Pt instructed to follow-up with Dr. Doll /cas/ RENETTA FRENCH PHARMD, BCPLeroy CLINICAL PHARMACIST PRACTITIONER Signed: 10/19/2023 12:43 RENETTA FRENCH [facility] [place] [facility]
--- OUTSIDE RECORDS SUMMARY | 2024-03-20 14:01 | XMS_ITS ---
Author Name [facility] [place] [facility] [place] Address [address] [place] [address] Care Team Providers Care Php Software Engineer Name Role Phone SOFI MANCERA Primary Care Provider Unavailabl e Insurance [...] Relationship to Policy [place] BC[place] MED[place] LAURAMETHODIST [facility] MEDEX VAIBHAV E Mar 13, 2015 [id number] VERONICA BROWN RT PATIENT MEDICARE (WNR) MEDICARE (M) PART B Aug 12, 2007 PART B [id number] VERONICA BROWN RT PATIENT MEDICARE (WNR) MEDICARE (M) PART A Jan 12, 2004 PART A [id number] VERONICA BROWN RT PATIENT Selected Encounter This section includes the information on record at [place] for the Encounter. Date/Time Encounter Type Encounter Description Reason Provider Source Oct 18, 2023 10:22 AM OFFICE O/P EST SF 10 MIN PRIMARY CARE/MEDICINE ICD-10-CM L30.9 Dermatitis, unspecified SOFI MANCERA [facility] Encounter Template Text not used by [place] Assessments - Encounter Diagnoses This section includes the primary and secondary diagnoses documented for the Encounter. Date/Time Primary/Secondary Diagnosis Diagnosis Name Provider Source Oct 18, 2023 10:22 AM PRIMARY Dermatitis, unspecified SOFI MANCERA [place] [facility] [place] [facility] Plan [...] Appointment Type Appointme nt Facility Name Oct 30, 2023 09:00 AM AM[place] [facility] [place] [facility] Nov 06, 2023 01:00 PM [place] [facility] [facility] Nov 20, 2023 09:30 AM [place] [facility] [facility] Dec 18, 2023 09:30 AM [place] [facility] [place] [facility] Dec 27, 2023 02:00 PM [place] [facility] [facility] Dec 29, 2023 01:30 PM [place] [facility] [facility] Jan 01, 2024 02:30 PM [place] [facility] [facility] Jan 08, 2024 03:30 PM [place] [facility] [facility] Jan 29, 2024 10:30 AM [place] [facility] [facility] Jan 30, 2024 03:30 PM [place] [facility] [facility] 2024 02:30 PM [place] [facility] [facility] Feb 05, 2024 11:00 AM [place] [facility] [facility] Feb 06, 2024 03:00 PM [place] [facility] [facility] Feb 09, 2024 02:00 PM [place] [facility] [facility] Feb 12, 2024 11:00 AM [place] [facility] [facility] Feb 15, 2024 01:00 PM [place] [facility] [facility] Feb 22, 2024 01:00 PM [place] [facility] [facility] Feb 29, 2024 09:00 AM [place] [facility] [facility] Mar 08, 2024 10:30 AM [place] [facility] [facility] Mar 18, 2024 11:00 AM [facility] [facility] Lab Results: +/- [...] Range Comment Oct 04, 2023 11:44 AM [facility] FERRITIN Specimen Type: SERUM No comment entered. Ordering Provider: NEENA STEVENS Report Released Date/Time: May 09, 2023 11:25 AM Reporting Lab: [facility] [address] [address] Performing Lab: [facility] [address] [address] FERRITIN 73 ng/mL 20-300 Oct 04, 2023 11:44 AM [facility] CBC Specimen Type: BLOOD No comment entered. Ordering Provider: NEENA STEVENS Report Released Date/Time: May 09, 2023 11:25 AM Reporting Lab: [facility] [address] [address] Performing Lab: [facility] [address] [address] WBC 7.68 10*3/uL 4.50-11.00 RBC 4.42 10*6/uL 4.23-5.66 HGB 14.1 g/dL 12.8-17 HCT 42.3 39.2-50.4 MCV 95.7 fL 82-99 MCHC 33.3 g/dL 30.8-35.1 PLT 160 10*3/uL 140-360 RDW-CV 14.2 12.0-16.0 MCH 31.9 pg 26.2-32.6 Oct 04, 2023 11:44 AM [facility] MICROALBUMIN CREATININE RATIO PANEL Specimen Type: URINE No comment entered. Ordering Provider: NEENA STEVENS Report Released Date/Time: May 09, 2023 11:25 AM Reporting Lab: [address] [address] Performing Lab: [address] [address] MICROALBUMIN/C REATININE RATIO 89.0 mg/g H 0-29.9 MICROALBUMIN,Q UANTITATIVE 7.5 mg/dL RR UNAVAIL CREATININE URINE 84.27 mg/dL Oct 04, 2023 11:44 AM [facility] IRON & TIBC PANEL Specimen Type: SERUM No comment entered. Ordering Provider: NEENA STEVENS Report Released Date/Time: May 09, 2023 11:25 AM Reporting Lab: [facility] [address] [facility] [address] Performing Lab: [address] [address] TIBC 342 ug/dL 204-475 IRON 96 ug/dL 40-160 Transferrin Saturation 28.1 20.0-50.0 Oct 04, 2023 11:44 AM [facility] BASIC METABOLIC PANEL (non-fasting) Specimen Type: SERUM No comment entered. Ordering Provider: NEENA STEVENS Report Released Date/Time: May 09, 2023 11:25 AM Reporting Lab: [address] [address] Performing Lab: [address] [address] UREA NITROGEN 24 mg/dL 7-25 GLUCOSE 80 [...] Height Weight Body Mass Index Source Oct 18, 2023 10:14 AM 98.1 67 122/75 16 97 5 [place] [facility] [place] [facility] Social History: Smoking Status (Most current) [...] AM VA-TOBACCO FORMER USER [place] [facility] Tobacco Use History This section includes a history of the smoking, or tobacco-related health factors, that were collected on or before the date of the Encounter. The data comes from the [place] facility where the Encounter took place. Date/Time Smoking Status/Tobacco Use Comment F acshahbaz Apr 26, 2023 10:00 AM VA-TOBACCO QUIT 15 YRS OR MORE [place] [facility] [facility] Mar 30, 2022 11:00 AM VA-TOBACCO FORMER USER [place] [facility] [place] [facility] Mar 30, 2022 11:00 AM VA-TOBACCO QUIT [...] YRS OR MORE [place] [facility] [place] [facility] [...] VA-TOBACCO NEVER USED [place] [facility] [place] [facility] Mar 14, 2017 09:31 AM LIFETIME NON-TOBACCO USER [place] [facility] [facility] Mar 01, 2016 02:51 PM LIFETIME NON-TOBACCO USER [place] [facility] [facility] Feb 10, 2015 09:31 AM QUIT TOBACCO USE > 7 YEARS AGO quit in 1963 [place] [facility] [facility] Encounter Notes: All associated encounter notes This section contains the clinical notes associated to the Encounter. Date/Time Encounter Note(s) Provider Source Oct 18, 2023 10:24 AM PHYSICIAN NOTE: LOCAL TITLE: MD NOTE STANDARD TITLE: PHYSICIAN NOTE DATE OF NOTE: OCT 18, 2023@10:24 ENTRY DATE: OCT 18, 2023@10:24:29 AUTHOR: SOFI MANCERA EXP COSIGNER: URGENCY: STATUS: COMPLETED Patient Name: JACQUELYN BROWN VITALS: Patient temperature: 98.1 F [36.7 C] (10/18/2023 10:14) Blood pressure: 122/75 (10/18/2023 10:14) Patient height: 68 in [172.7 cm] (09/01/2023 11:18) Patient weight: 221 lb [100.24 kg] (10/11/2023 09:07) Patient BMI: BMI: 33.7 Patient pulse: 67 (10/18/2023 10:14) Patient respiration: 16 (10/18/2023 10:14) Patient Pulse Oximetry: 97% (10/18/2023 10:14) Pain Ratin (10/18/2023 10:14) Active VA Medications: Active Outpatient Medications (including [...] ACTIVE ONCE DAILY TO SUPPLEMENT IRON 6) INSULIN,GLARGINE-YFGN 100UNIT/ML PEN 3ML INJECT 16 ACTIVE UNITS SUBCUTANEOUSLY ONCE DAILY FOR TYPE 2 DIABETES MELLITUS 7) MULTIVIT/OPHTH AREDS2/LUTE/ZEAX CAP/TAB TAKE 1 ACTIVE CAPSULE BY MOUTH TWICE DAILY IN THE MORNING AND EVENING, WITH FOOD 8) NEEDLE,PEN 31G,5MM USE 1 NEEDLE SUBCUTANEOUSLY ONCE ACTIVE DAILY FOR USE WITH PEN DEVICE 9) OMEPRAZOLE 20MG EC CAP TAKE ONE [...] TABLETS BY MOUTH AT BEDTIME FOR CHOLESTEROL 13) SEMAGLUTIDE 0.25MG/0.375ML INJ PEN 3ML INJECT 0.25MG ACTIVE SUBCUTANEOUSLY ONCE A WEEK FOR 4 WEEKS, THEN INJECT 0.5MG ONCE A WEEK FOR 2 WEEKS FOR TYPE 2 DIABETES MELLITUS 14) TAMSULOSIN HCL 0.4MG CAP TAKE TWO CAPSULES BY MOUTH ACTIVE (S) AT BEDTIME Pending Outpatient Medications Status 1) PREDNISONE 10MG TAB TAKE FOUR TABLETS BY MOUTH ONCE PENDING DAILY FOR 4 DAYS, THEN TAKE THREE TABLETS ONCE DAILY FOR 4 DAYS, THEN TAKE TWO TABLETS ONCE DAILY FOR 4 DAYS, THEN TAKE ONE TABLET ONCE DAILY FOR 4 DAYS Active Non-VA Medications Status 1) Non-VA METOPROLOL SUCCINATE 25MG SA TAB 25MG BY MOUTH ACTIVE EVERY DAY 16 Total Medications Remote Medications: No Active 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 It occurred on his legs arms and chest. It itches moderately. It is similar to previous episodes of poison cherry. He has been on prednisone in the past without problems. Physical examination Well-developed well-nourished male no acute distress Skin: Raised curved streaks of erythema on legs, arms and chest No patches of confluent cellulitis Assessment and plan: 1. Poison cherry: Involvement of face eyes or lungs Plan: Prednisone taper. Patient provided education to watch his blood sugars carefully. Return immediately if symptoms change or worsen. 01-01-2024 already set for follow-up Medication Reconciliation: Outpatient: Has the patient been [...] with a VA or non-VA provider. /es/ Sofi Mancera MD Staff Physician Signed: 10/18/2023 10:27 SOFI MANCERA [facility]
--- OUTSIDE RECORDS SUMMARY | 2024-03-20 14:01 | XMS_ITS ---
Author Name [facility] [place] Organization [place] Address [address] [place] [address] Care Team Providers Care Maintenance Service Supervisor Name Role Phone NERI MANCERA Primary Care [...] [place] MEDICARE JONELLE Haque Mar 13, 2015 [id number] VERONICA BROWN RT PATIENT MEDICARE (WNR) MEDICARE (M) PART B Aug 12, 2007 PART B [id number] VERONICA BROWN RT PATIENT MEDICARE (WNR) MEDICARE (M) PART A Jan 12, 2004 PART A [id number] VERONICA BROWN RT PATIENT Selected Encounter This section includes the information on record at [place] for the Encounter. Date/Time Encounter Type Encounter Description Reason Pro vider Source Nov 16, 2023 11:26 AM Outpatient Encounter PRIMARY CARE/MEDICINE IHE Encounter Template Text not used by VA Plan of Treatment: Future Appointments (+ 6 months) and Future Tests (+/- 45 days) The Plan of Treatment section includes future care activities for the patient from all [place] [facility] This section includes future appointments and future orders which are active, pending or scheduled. Future Appointments This section includes appointments that were scheduled to occur 6 months from the date of the Encounter, up to a maximum of 20 appointments. The data comes from all [place] treatment facilities. Appointment Date/Time Appointment Type Appointme nt Facility Name Nov 20, 2023 09:30 AM AM[place]ULATORY [place] [facility] [place] [facility] Dec 18, 2023 09:30 AM AM[place]ULATORY [place]ICINE [place] [facility] [place] [facility] Dec 27, 2023 02:00 PM AM[place]ULATORY [place]ICINE [place] [facility] [place] [facility] Dec 29, 2023 01:30 PM AM[place]ULATORY [place]ICINE [place] [facility] [place] [facility] Jan 01, 2024 02:30 PM AM[place]ULATORY [place]ICINE [place] [facility] [place] [facility] Jan 08, 2024 03:30 PM AM[facility]ULATORY [place]ICINE [place] [facility] [place] [facility] Jan 29, 2024 10:30 AM AM[place]ATORY [place]ICINE [place] [facility] [place] [facility] Jan 30, 2024 03:30 PM [facility]AT[facility] [place]ICINE [place] [facility] [place] [facility] 2024 02:30 PM [facility]ULATORY [place]ICINE [place] [facility] [place] [facility] Feb 05, 2024 11:00 AM AM[facility]AT[facility] [place]ICINE [place] [facility] [place] [facility] Feb 06, 2024 03:00 PM AM[facility]ULATORY [place]ICINE [place] [facility] [place] [facility] Feb 09, 2024 02:00 PM AM[facility]AT[facility] [place]ICINE [place] [facility] [place] [facility] Feb 12, 2024 11:00 AM [facility] [place]ICINE [place] [facility] [place] [facility] Feb 15, 2024 01:00 PM AM[facility]ULATORY - [place]ICINE [place] [facility] [place] [facility] Feb 22, 2024 01:00 PM AM[facility]ULATORY [place]ICINE [place] [facility] [place] [facility] Feb 29, 2024 09:00 AM AM[facility]AT[facility] [place]ICINE [place] [facility] [place] [facility] Mar 08, 2024 10:30 AM [facility] [place] [facility] [place] [facility] Mar 18, 2024 11:00 AM [place] [facility] [facility] Mar 25, 2024 10:00 AM [place] [facility] [facility] Apr 04, 2024 03:00 PM [place] [facility] [facility] Social History: Smoking Status (Most current) and [...] VA-TOBACCO FORMER USER [place] [facility] [place] [facility] Tobacco Use History This section includes a history of the smoking, or tobacco-related health factors, that were collected on or before the date of the Encounter. The data comes from the [place] facility where the Encounter took place. Date/Time Smoking Status/Tobacco Use Comment F acility Apr 26, 2023 10:00 AM VA-TOBACCO QUIT 15 YRS OR MORE [place] [facility] [place] [facility] Mar 30, 2022 11:00 AM VA-TOBACCO FORMER USER [place] [facility] [place] [facility] Mar 30, 2022 11:00 AM VA-TOBACCO QUIT 15 YRS OR MORE [place] [facility] [place] [facility] Mar 17, 2021 01:30 PM VA-TOBACCO FORMER USER [place] [facility] [place] [facility] Mar 17, 2021 01:30 PM VA-TOBACCO NEVER USED [place] [facility] [place] [facility] Mar 17, 2021 01:30 PM VA-TOBACCO QUIT 15 YRS OR MORE [place] [facility] [place] [facility] Mar 31, 2020 10:30 AM VA-TOBACCO FORMER USER [place] [facility] [place] [facility] Mar 31, 2020 10:30 AM VA-TOBACCO QUIT 15 YRS OR MORE [place] [facility] [place] [facility] Nov 23, 2018 12:07 PM VA-TOBACCO FORMER USER [facility] [place] [facility] Nov 23, 2018 12:07 PM VA-TOBACCO QUIT 15 YRS OR MORE [place] [facility] [place] [facility] Nov 22, 2017 10:02 AM VA-TOBACCO NEVER USED [place] [facility] [facility] Mar 14, 2017 09:31 AM LIFETIME NON-TOBACCO USER [place] [facility] [place] [facility] Mar 01, 2016 02:51 PM LIFETIME NON-TOBACCO USER [place] [facility] [place] [facility] Feb 10, 2015 09:31 AM QUIT TOBACCO USE > 7 YEARS AGO quit in 1964 [place] [facility] [place] [facility] Encounter Notes: All associated encounter notes This section contains the clinical notes associated to the Encounter. Date/Time Encounter Note(s) Provider Source Nov 16, 2023 01:24 PM ADDENDUM: LOCAL TITLE: Addendum STANDARD TITLE: ADDENDUM DATE OF NOTE: NOV 16, 2023@13:24:35 ENTRY DATE: NOV 16, 2023@13:24:36 AUTHOR: ALEXANDRA SHELL EXP COSIGNER: URGENCY: STATUS: COMPLETED LANCET,SOFTCLIX [id number] 09/26/2022 12/16/2022 (2) SIG: USE 1 LANCET DIRECTED FOUR TIMES A DAY TO TEST BLOOD SUGAR Indication: DIABETES /es/ ALEXANDRA SHELL LPN LPN Signed: 11/16/2023 13:24 Receipt Acknowledged By: 11/16/2023 14:20 /es/ Neri Mancera MD Staff Physician ========= --- Original Document --- 11/16/23 TELEPHONE NOTE/PRIMARY CARE: [place] called directly into [facility] Primary Care requesting the following medication supply for renewal: LANCET,SOFTCLIX Please mail to [facility]. /cas/ RENEE MICHEL Signed: 11/16/2023 11:27 Receipt Acknowledged By: 11/16/2023 13:32 /es/ Jeanette Garcia RN, BSN Primary Care 11/16/2023 14:03 /cas/ ALEXANDRA SHELL LPN LPN 11/16/2023 ADDENDUM STATUS: COMPLETED done /cas/ Jeanette Garcia RN, BSN Primary Care Signed: 11/16/2023 13:31 ALEXANDRA SHELL [place] [facility] [facility] Nov 16, 2023 11:26 AM PRIMARY CARE TELEP RADHA ENCOUNTER NOTE: LOCAL TITLE: TELEPHONE NOTE/PRIMARY CARE STANDARD TITLE: PRIMARY CARE TELEPHONE ENCOUNTER NOTE DATE OF NOTE: NOV 16, 2023@11:26 ENTRY DATE: NOV 16, 2023@11:26:31 AUTHOR: RENEE MORRIS EXP COSIGNER: URGENCY: STATUS: COMPLETED TELEPHONE NOTE/PRIMARY CARE Has ADDENDA called directly into [facility] Primary Care requesting the following medication supply for renewal: LANCET,SOFTCLIX Please mail to . /cas/ RENEE MICHEL Signed: 11/16/2023 11:27 Receipt Acknowledged By: 11/16/2023 13:32 /cas/ Jeanette Garcia RN, MARTINN Primary Care 11/16/2023 14:03 /es/ ALEXANDRA SHELL LPN LPN 11/16/2023 ADDENDUM STATUS: COMPLETED LANCET,SOFTCLIX [id number] 09/26/2022 12/16/2022 (2) SIG: USE 1 LANCET DIRECTED FOUR TIMES A DAY TO TEST BLOOD SUGAR Indication: DIABETES /cas/ ALEXANDRA SHELL LPN LPN Signed: 11/16/2023 13:24 Receipt Acknowledged By: * AWAITING SIGNATURE * NERI MANCERA 11/16/2023 ADDENDUM STATUS: COMPLETED done /cas/ Jeanette Garcia RN, BSN Primary Care Signed: 11/16/2023 13:31 RENEE MORRIS [facility]
--- OUTSIDE RECORDS SUMMARY | 2024-03-20 14:01 | XMS_ITS | Encounter Summary ---
Author Name [facility] [place] Organization [place] Address [address] [place] [address] Care Team Providers Care Gas Inspector Name Role Phone NERI MANCERA Primary Care [...] [place] MEDIC[place] JONELLE Haque Mar 13, 2015 [id number] VERONICA BROWN RT PATIENT MEDICARE (WNR) MEDICARE (M) PART B Aug 12, 2007 PART B [id number] VERONICA BROWN RT PATIENT MEDICARE (WNR) MEDICARE (M) PART A Jan 12, 2004 PART A [id number] VERONICA BROWN RT PATIENT Selected Encounter This section includes the information on record at [place] for the Encounter. Date/Time Encounter Type Encounter Description Reason Pro vider Source Oct 27, 2023 01:37 PM Outpatient Encounter PRIMARY CARE/MEDICINE IHE Encounter Template Text not used by [facility] Plan of Treatment: Future Appointments (+ 6 months) and Future Tests (+/- 45 days) The Plan of Treatment section includes future care activities for the patient [facility] [place] [facility] This section includes future appointments [...] [place] [facility] Jan 08, 2024 03:30 PM AMBULATORY - MEDICINE [place] [facility] [place] [facility] Jan 29, 2024 10:30 AM AMBULATORY - MEDICINE [place] [facility] [place] [facility] Jan 30, 2024 03:30 PM AMBULATORY - MEDICINE [place] [facility] [place] [facility] 2024 02:30 PM AMBULATORY - MEDICINE [place] [facility] [place] [facility] Feb 05, 2024 11:00 AM AMBULATORY - MEDICINE [place] [facility] [place] [facility] Feb 06, 2024 03:00 PM AMBULATORY - MEDICINE [place] [facility] [place] [facility] Feb 09, 2024 02:00 PM AMBULATORY - MEDICINE [place] [facility] [place] [facility] Feb 12, 2024 11:00 AM AMBULATORY - MEDICINE [place] [facility] [place] [facility] Feb 15, 2024 01:00 PM AMBULATORY - MEDICINE [place] [facility] [place] [place] [facility] Feb 22, 2024 01:00 PM AMBULATORY - MEDICINE [place] [facility] [facility] Feb 29, 2024 09:00 AM [facility] [facility] Mar 08, 2024 10:30 AM [place] [facility] Mar 18, 2024 11:00 AM AMBULATORY - MEDICINE [facility] Lab Results: +/- 30 days [...] Range Comment Oct 04, 2023 11:44 AM [facility] FERRITIN Specimen Type: SERUM No comment entered. Ordering Provider: NEENA STEVENS Report Released Date/Time: May 09, 2023 11:25 AM Reporting Lab: [facility] [address] [address] Performing Lab: [facility] [address] FERRITIN 73 ng/mL 20-300 Oct 04, 2023 11:44 AM [facility] CBC Specimen Type: BLOOD No comment entered. Ordering Provider: NEENA STEVENS Report Released Date/Time: May 09, 2023 11:25 AM Reporting Lab: [address] [address] Performing Lab: [facility] [address] WBC 7.68 10*3/uL 4.50-11.00 RBC 4.42 10*6/uL 4.23-5.66 HGB 14.1 g/dL 12.8-17 HCT 42.3 39.2-50.4 MCV 95.7 fL 82-99 MCHC 33.3 g/dL 30.8-35.1 PLT 160 10*3/uL 140-360 RDW-CV 14.2 12.0-16.0 MCH 31.9 pg 26.2-32.6 Oct 04, 2023 11:44 AM [facility] IRON & TIBC PANEL Specimen Type: SERUM No comment entered. Ordering Provider: NEENA STEVENS Report Released Date/Time: May 09, 2023 11:25 AM Reporting Lab: [facility] [address] [facility] [address] Performing Lab: [address] [address] TIBC 342 ug/dL 204-475 IRON 96 ug/dL 40-160 Transferrin Saturation 28.1 20.0-50.0 Oct 04, 2023 11:44 AM [facility] MICROALBUMIN CREATININE RATIO PANEL Specimen Type: URINE No comment entered. Ordering Provider: NEENA STEVENS Report Released Date/Time: May 09, 2023 11:25 AM Reporting Lab: [address] [address] Performing Lab: [address] [address] MICROALBUMIN/C REATININE RATIO 89.0 mg/g H 0-29.9 MICROALBUMIN,Q UANTITATIVE 7.5 mg/dL RR UNAVAIL CREATININE URINE 84.27 mg/dL Oct 04, 2023 11:44 AM [facility] BASIC METABOLIC PANEL (non-fasting) Specimen Type: SERUM No comment entered. Ordering Provider: NEENA STEVENS Report Released Date/Time: May 09, 2023 11:25 AM Reporting Lab: [address] [address] Performing Lab: [address] [address] UREA NITROGEN 24 mg/dL 7-25 GLUCOSE 80 [...] [facility] [place] [facility] Tobacco [...] [facility] [facility] Mar 14, 2017 09:31 AM LIFETIME NON-TOBACCO USER [place] [facility] [facility] Mar 01, 2016 02:51 PM LIFETIME NON-TOBACCO USER [facility] [place] [facility] Feb 10, 2015 09:31 AM QUIT TOBACCO USE > 7 YEARS AGO quit in 1964 [facility] Encounter Notes: All associated encounter notes This section contains the clinical notes associated to the Encounter. Date/Time Encounter Note(s) Provider Source Oct 27, 2023 02:34 PM ADDENDUM: LOCAL TITLE: Addendum STANDARD TITLE: ADDENDUM DATE OF NOTE: OCT 27, 2023@14:34:49 ENTRY DATE: OCT 27, 2023@14:34:50 AUTHOR: JEANETTE GARCIA EXP COSIGNER: URGENCY: STATUS: COMPLETED . please place new order for mail if agree. thank you. /cas/ Jeanette Garcia RN, BSN Primary Care Signed: 10/27/2023 14:35 Receipt Acknowledged By: 10/29/2023 20:40 /es/ Neri Mancera MD Staff Physician ========= --- Original Document --- 10/27/23 WALK-IN NOTE PRIMARY CARE (T): <====Click to Start Advanced Medical Support Hewett presents to the Primary Care clinic with the following request: [ X ]Medication Renewal/Refill FLUTICASONE NASAL SOLN,NASAL 50MCG/SPRAY - Hewett would like to have mailed. [ ]Consultation with Team RN [ ]Symptoms [ ]Other The states they are: [ ]Waiting [ X ]Not Waiting No Walk in visit scheduled with PACT Nurse [ X ] At this encounter the Hewett's demographics were verified. [ X ] At this encounter the 's Insurance information was verified. [ X ] At this encounter the below scheduled visits for the were discussed and appointment reminder card was offered. Future appointments: 10/30/2023 09:00 CWM/NO/TELE/PHARM/PACT 2 11/06/2023 13:00 CWM/NO/ACUPUNCTURE R2 12/27/2023 14:30 CWM/NO/PODIATRY/NAIL 12/29/2023 13:30 CWM/NO/ACUPUNCTURE R1 01/01/2024 14:30 CWM/NO/PACT 2 03/12/2024 14:00 CWM/NO/NEPHROLOGY/PROV 05/08/2024 13:30 NHM/OPTOMETRY/BORASKI /es/ RENEE MORRIS AMSA Signed: 10/27/2023 13:38 Receipt Acknowledged By: 10/27/2023 14:51 /es/ Jeanette Garcia RN, BSN Primary Care 10/27/2023 14:48 /es/ ALEXANDRA SHELL LPN MOTORCYCLE DELIVERY DRIVER 10/27/2023 ADDENDUM STATUS: COMPLETED has refills and should be instructed to call pharmacy. /cas/ Jeanette Garcia RN, BSN Primary Care Signed: 10/27/2023 14:33 10/29/2023 ADDENDUM STATUS: COMPLETED Done. /es/ Neri Mancera MD Staff Physician Signed: 10/29/2023 20:40 JEANETTE GARCIA [place] [facility] [facility] Oct 27, 2023 01:37 PM PRIMARY CARE NOTE: LOCAL TITLE: WALK-IN NOTE PRIMARY CARE (T) STANDARD TITLE: PRIMARY CARE NOTE DATE OF NOTE: OCT 27, 2023@13:37 ENTRY DATE: OCT 27, 2023@13:37:59 AUTHOR: RENEE MORRIS EXP COSIGNER: URGENCY: STATUS: COMPLETED WALK-IN NOTE PRIMARY CARE (T) Has ADDENDA <====Click to Start Advanced Medical Support presents to the Primary Care clinic with the following request: [ X ]Medication Renewal/Refill FLUTICASONE NASAL SOLN,NASAL 50MCG/SPRAY - Hewett would like to have mailed. [ ]Consultation with Team RN [ ]Symptoms [ ]Other The Hewett states they are: [ ]Waiting [ X ]Not Waiting No Walk in visit scheduled with PACT Nurse [ X ] At this encounter the Hewett's demographics were verified. [ X ] At this encounter the 's Insurance information was verified. [ X ] At this encounter the below scheduled visits for the Hewett were discussed and appointment reminder card was offered. Future appointments: 10/30/2023 09:00 CWM/NO/TELE/PHARM/PACT 2 11/06/2023 13:00 CWM/NO/ACUPUNCTURE R2 12/27/2023 14:30 CWM/NO/PODIATRY/NAIL 12/29/2023 13:30 CWM/NO/ACUPUNCTURE R1 01/01/2024 14:30 CWM/NO/PACT 2 03/12/2024 14:00 CWM/NO/NEPHROLOGY/PROV 05/08/2024 13:30 NHM/OPTOMETRY/BORASKI /cas/ RENEE OMRRIS AMSA Signed: 10/27/2023 13:38 Receipt Acknowledged By: 10/27/2023 14:51 /es/ Jeanette Garcia RN, BSN Primary Care 10/27/2023 14:48 /cas/ ALEXANDRA SHELL LPN MOTORCYCLE DELIVERY DRIVER 10/27/2023 ADDENDUM STATUS: COMPLETED has refills and should be instructed to call pharmacy. /cas/ Jeanette Garcia RN, BSN Primary Care Signed: 10/27/2023 14:33 10/27/2023 ADDENDUM STATUS: COMPLETED . please place new order for mail if agree. thank you. /cas/ Jeanette Garcia RN, BSN Primary Care Signed: 10/27/2023 14:35 Receipt Acknowledged By: 10/29/2023 20:40 /cas/ Neri Mancera MD Staff Physician 10/29/2023 ADDENDUM STATUS: COMPLETED Done. /cas/ Neri Mancera MD Staff Physician Signed: 10/29/2023 20:40 RENEE MORRIS [place] [facility]
--- OUTSIDE RECORDS SUMMARY | 2024-03-20 14:01 | XMS_ITS ---
Author Name Department of [place] Organization [place] Address [address] [place] [address] Care Team Providers Care Mortgage Originator Name Role Phone SOFI MANCERA Primary Care [...] [place] [employer] CHARAN Haque Mar 13, 2015 [id number] VERONICA BROWN RT PATIENT MEDICARE (WNR) MEDICARE (M) PART B Aug 12, 2007 PART B [id number] VERONICA BROWN RT PATIENT MEDICARE (WNR) MEDICARE (M) PART A Jan 12, 2004 PART A [id number] VERONICA BROWN RT PATIENT Selected Encounter This section includes the information on record at [place] for the Encounter. Date/Time Encounter Type Encounter Description Reason Provider Source Oct 11, 2023 02:05 PM OFFICE O/P EST LOW 20 MIN PODIATRY ICD-10-CM L60.0 Ingrowing nail JOVI HAYES Encounter Template Text not used by MD Assessments - Encounter Diagnoses This section includes the primary and secondary diagnoses documented for the Encounter. Date/Time Primary/Secondary Diagnosis Diagnosis Name Provider Source Nov 16, 2023 10:52 AM PRIMARY Ingrowing nail JOVI HAYES [place] [facility] [facility] Plan of Treatment: Future Appointments (+ [...] - MEDICINE MD C NTR[place] [facility] Oct 30, 2023 09:00 AM AMBULATORY - MEDICINE [place] C [place] [facility] Nov 06, 2023 01:00 PM AMBULATORY - MEDICINE [place] C [place] [facility] Nov 20, 2023 09:30 AM AMBULATORY - MEDICINE [place] C [facility] [facility] Dec 18, 2023 09:30 AM AMBULATORY - MEDICINE [place] C [facility] [facility] Dec 27, 2023 02:00 PM AMBULATORY - MEDICINE [place] C [place] [facility] Dec 29, 2023 01:30 PM AMBULATORY - MEDICINE [place] C [facility] [facility] Jan 01, 2024 02:30 PM AMBULATORY - MEDICINE [place] C [place] [facility] Jan 08, 2024 03:30 PM AMBULATORY - MEDICINE [place] C [facility] [facility] Jan 29, 2024 10:30 AM AMBULATORY - MEDICINE [place] C [facility] [facility] Jan 30, 2024 03:30 PM AMBULATORY - MEDICINE [place] C [place] [facility] 2024 02:30 PM AMBULATORY - MEDICINE [place] [facility] [place] [facility] Feb 05, 2024 11:00 AM AMBULATORY - MEDICINE [place] C [place] [facility] Feb 06, 2024 03:00 PM AMBULATORY - MEDICINE [place] C [facility] [facility] Feb 09, 2024 02:00 PM AMBULATORY - MEDICINE MD C [facility] [facility] Feb 12, 2024 11:00 AM AMBULATORY - MEDICINE MD C [facility] [facility] Feb 15, 2024 01:00 PM AMBULATORY - MEDICINE [place] C [facility] [facility] Feb 22, 2024 01:00 PM AMBULATORY - MEDICINE MD C [facility] [facility] Feb 29, 2024 09:00 AM AMBULATORY - MEDICINE [place] C [facility] [facility] Mar 08, 2024 10:30 AM AMBULATORY - MEDICINE [facility] Lab Results: +/- 30 days of the encounter This section includes the Chemistry and Hematology Lab Results on record with MD for the patient. Radiology Reports and Pathology Reports are provided separately, in subsequent sections. Lab Results This section contains the Chemistry/Hematology Results that were resulted 30 days before or 30 daysafter the date of the Encounter. Date/Time Source Result Type Result - Unit Interpretation Reference Range Comment Oct 04, 2023 11:44 AM [facility] FERRITIN Specimen Type: SERUM No comment entered. Ordering Provider: NEENA STEVENS Report Released Date/Time: May 09, 2023 11:25 AM Reporting Lab: [place] [address] [address] Performing Lab: [facility] [address] [address] FERRITIN 73 ng/mL 20-300 Oct 04, 2023 11:44 AM [facility] CBC Specimen Type: BLOOD No comment entered. Ordering Provider: NEENA STEVENS Report Released Date/Time: May 09, 2023 11:25 AM Reporting Lab: [facility] [address] [address] Performing Lab: [facility] [address] [address] WBC 7.68 10*3/uL 4.50-11.00 RBC 4.42 10*6/uL 4.23-5.66 HGB 14.1 g/dL 12.8-17 HCT 42.3 39.2-50.4 MCV 95.7 fL 82-99 MCHC 33.3 g/dL 30.8-35.1 PLT 160 10*3/uL 140-360 RDW-CV 14.2 12.0-16.0 MCH 31.9 pg 26.2-32.6 Oct 04, 2023 11:44 AM [facility] MICROALBUMIN CREATININE RATIO PANEL Specimen Type: URINE No comment entered. Ordering Provider: NEENA STEVENS Report Released Date/Time: May 09, 2023 11:25 AM Reporting Lab: [address] [address] Performing Lab: [address] [address] MICROALBUMIN/C REATININE RATIO 89.0 mg/g H 0-29.9 MICROALBUMIN,Q UANTITATIVE 7.5 mg/dL RR UNAVAIL CREATININE URINE 84.27 mg/dL Oct 04, 2023 11:44 AM [facility] IRON & TIBC PANEL Specimen Type: SERUM No comment entered. Ordering Provider: NEENA STEVENS Report Released Date/Time: May 09, 2023 11:25 AM Reporting Lab: [facility] [address] [facility] [address] Performing Lab: [address] [address] TIBC 342 ug/dL 204-475 IRON 96 ug/dL 40-160 Transferrin Saturation 28.1 20.0-50.0 Oct 04, 2023 11:44 AM [facility] BASIC METABOLIC PANEL (non-fasting) Specimen Type: SERUM No comment entered. Ordering Provider: NEENA STEVENS Report Released Date/Time: May 09, 2023 11:25 AM Reporting Lab: [facility] [address] [facility] [address] Performing Lab: [address] [address] UREA NITROGEN 24 mg/dL 7-25 GLUCOSE 80 [...] 66 123/73 16 97 7 [phone] [place] [facility] [facility] Social History: Smoking Status (Most [...] VA-TOBACCO FORMER USER [place] [facility] Tobacco Use History This section includes a history of the smoking, or tobacco-related health factors, that were collected on or before the date of the Encounter. The data comes from the MD facility where the Encounter took place. Date/Time Smoking Status/Tobacco Use Comment F mushtaq Apr 26, 2023 10:00 AM VA-TOBACCO QUIT 15 YRS OR MORE [place] [facility] Mar 30, 2022 11:00 AM VA-TOBACCO FORMER USER [facility] [place] [facility] Mar 30, 2022 11:00 AM VA-TOBACCO QUIT 15 YRS OR MORE [facility] [facility] Mar 17, 2021 01:30 PM VA-TOBACCO FORMER USER [facility] [facility] Mar 17, 2021 01:30 PM VA-TOBACCO NEVER USED MD [facility] [place] [facility] Mar 17, 2021 01:30 PM VA-TOBACCO QUIT 15 YRS OR MORE [place] [facility] [place] [facility] Mar 31, 2020 10:30 AM VA-TOBACCO FORMER USER [facility] [place] [facility] Mar 31, 2020 10:30 AM VA-TOBACCO QUIT 15 YRS OR MORE [facility] [facility] Nov 23, 2018 12:07 PM VA-TOBACCO FORMER USER [facility] [facility] Nov 23, 2018 12:07 PM VA-TOBACCO QUIT 15 YRS OR MORE [place] [facility] [facility] Nov 22, 2017 10:02 AM VA-TOBACCO NEVER USED VA [facility] [facility] Mar 14, 2017 09:31 AM LIFETIME NON-TOBACCO USER [place] [facility] [facility] Mar 01, 2016 02:51 PM LIFETIME NON-TOBACCO USER [place] [facility] [facility] Feb 10, 2015 09:31 AM QUIT TOBACCO USE > 7 YEARS AGO quit in 1963 [place] [facility] [place] [facility] Encounter Notes: All associated encounter notes This section contains the clinical notes associated to the Encounter. 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 [ ] Percutaneous Flexor Tenotomy [ ] Cyst /Ganglion Aspiration-Injection [ ] Removal Superfical Foreign Body [ ] Joint Injection [ ] Plantar Facia Injection HCC: Patient is an 83-year-old type II diabetic male anticoagulated on rivaroxaban, seen in the podiatry nurse clinic with exquisitely painful bilateral hallux nails unable to be trimmed without excruciating discomfort. There were no clinical signs of infection present however but patient requested management of pain to facilitate painful ingrown toenails. He has had this problem in the past and manual debridement has been attempted but patient returning to clinic frequently within 30 days. Local anesthetic was discussed with the patient as a means to provide adequate anesthesia and to allow for more complete slant back nail procedures to be done. Local anesthesia was discussed using 2% lidocaine plain. The injection technique and location of anesthesia was discussed with the patient the base of both great toes. Patient excepted and consented for local anesthesia to facilitate further care as described above. Active problems - Computerized Problem List is the source for the followin. Atrial fibrillation 2. Diabetes mellitus type 2 3. Chronic kidney disease stage 3 due to type 2 diabetes mellitus 4. Back pain 5. Benign Prostatic Hypertrophy Without Outflow Obstruction (SCT 790520215) 6. Essential hypertension 7. 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 Blurred vision 9. Hyperuricemia 10. Colonoscopy, 2006, tics, polyps -- benign 11. Pain in joint involving shoulder region 12. Nephrolithiasis * 13. Microscopic Hematuria 14. Hyperlipidemia (SNOMED CT 49121460) 15. Obesity (SNOMED CT 747384794) 16. Essential hypertension 17. Gastroesophageal Reflux Disorder 18. Arthritis METFORMIN, LISINOPRIL, ATORVASTATIN Active Outpatient Medications (including Supplies): Active Outpatient [...] MOUTH ACTIVE EVERY DAY 15 Total Medications Include data from 10/15/2022 to 10/15/2023 10/15/2023 20:58 CONFIDENTIAL IMAGING REPORTS SUMMARY pg. 1 JACQUELYN BROWN [id number] : 1940 II - Imaging Impression (max 1 occurrence) No data available Procedure: Informed consent-today which included full description of the procedure with the attendant risks and benefits of the procedure were fully discussed with the patient, pre and postoperative anesthesia and pain control, expected outcomes and improvements, as well as possible risks. After having all of this explained in detail to the patient with his full understanding patient consented freely to the procedure below. Possible complications were also discussed including the following but not limited to:Possible complications of Surgery. Informed consent was obtained for bilateral local anesthesia to great toe. Followed by simple debridement of toenails bilateral hallux. Patient's FULL name, date of , FULL Social Security number, procedure identification, laterality, medication review, allergy review, all verified with patient and correlated to the medical record AND CONSENT prior to start of procedure. Staff present during timeout: Mamta Chaidez LPN -recurrence of ingrown nails Bilaterally. Procedure(s): -Patient's FULL name, date of , FULL Social Security number, procedure identification, laterality, medication review, allergy review, all verified with patient and correlated to the medical record AND CONSENT prior to start of procedure. Staff present during timeout:u -Local anesthesia: 2% lidocaine plain volume [3ml ea. Hallux] injected -10% Betadine prep to both great toes. -After anesthesia was verified with the patient bilaterally sterile prepackaged nail nippers were used to perform adequate slant back nail procedure to the medial and lateral nail margins of both great toes effectively reducing completely the ingrown toenail pressure on the ungual labia. -Bacitracin was applied to each nail groove medially and laterally bilaterally to the hallux and Band-Aids were applied. -Patient tolerated the anesthesia and procedure well he was monitored for 5 minutes. Was completely stable and discharged to follow-up with the nurses nail clinic in 60 days. -Patient was given supplies for Band-Aids and bacitracin to change to the nail grooves daily for the next 5 to 7 days. /cas/ JOVI HAYES DPM PODIATRY ATTENDING Signed: 10/15/2023 21:05 JOVI HAYES CNTRL WSTRN [facility]
--- OUTSIDE RECORDS SUMMARY | 2024-03-20 14:01 | XMS_ITS ---
Author Name [facility] [place] [facility] [place] [facility] [place] [facility] [place] Address [address] [place] [address] Care Team Providers Care Manager Maintenance Name Role Phone SOFI MANCERA Primary Care [...] [place] [employer] CHARAN Haque Mar 13, 2015 [id number] VERONICA BROWN RT PATIENT MEDICARE (WNR) MEDICARE (M) PART B Aug 12, 2007 PART B [id number] VERONICA BROWN RT PATIENT MEDICARE (WNR) MEDICARE (M) PART A Jan 12, 2004 PART A [id number] VERONICA BROWN RT PATIENT Selected Encounter This section includes the information on record at [place] for the Encounter. Date/Time Encounter Type Encounter Description Reason Provider Source Nov 06, 2023 01:00 PM ACUPUNCT W/O STIMUL ADDL 15M [facility] TREATMENT ICD-10-CM M54.9 Dorsalgia, unspecified BRICE WALSH IHE Encounter Template Text not used by [place] Assessments - Encounter Diagnoses This section includes the primary and secondary diagnoses documented for the Encounter. Date/Time Primary/Secondary Diagnosis Diagnosis Name Provider Source Nov 21, 2023 07:58 AM PRIMARY Dorsalgia, unspecified BRICE WALSH JOHN Doll [place] [facility] [place] [facility] Plan of Treatment: Future Appointments (+ 6 months) and Future Tests (+/- 45 days) The Plan of Treatment section includes future care activities for the patient from all [place] treatmentfacilities. This section includes future appointments and future orders which are active, pending or scheduled. Future Appointments This section includes appointments that were scheduled to occur 6 months from the date of the Encounter, up to a maximum of 20 appointments. The data comes from all [place] treatment facilities. Appointment Date/Time Appointment Type Appointme nt Facility Name Nov 20, 2023 09:30 AM AMBULATORY - MEDICINE [place] [facility] [place] [facility] Dec 18, 2023 09:30 AM AMBULATORY - MEDICINE [place] [facility] [place] [facility] Dec 27, 2023 02:00 PM AMBULATORY [facility] MEDICINE [facility] [place] [facility] Dec 29, 2023 01:30 PM AMBULATORY - MEDICINE [facility] [place] [facility] Jan 01, 2024 02:30 PM AMBULATORY - MEDICINE [facility] [place] [facility] Jan 08, 2024 03:30 PM AMBULATORY - MEDICINE [facility] [place] [facility] Jan 29, 2024 10:30 AM AMBULATORY - MEDICINE [facility] [place] [facility] Jan 30, 2024 03:30 PM AMBULATORY - MEDICINE [facility] [place] [facility] 2024 02:30 PM AMBULATORY - MEDICINE [facility] [place] [facility] Feb 05, 2024 11:00 AM AMBULATORY - MEDICINE [facility] [place] [facility] Feb 06, 2024 03:00 PM AMBULATORY - MEDICINE [facility] [place] [facility] Feb 09, 2024 02:00 PM AMBULATORY - MEDICINE [facility] [place] [facility] Feb 12, 2024 11:00 AM AMBULATORY - MEDICINE [facility] [place] [facility] Feb 15, 2024 01:00 PM AMBULATORY - MEDICINE [place] [facility] [place] [facility] Feb 22, 2024 01:00 PM AMBULATORY - MEDICINE [facility] [place] [facility] Feb 29, 2024 09:00 AM AMBULATORY - MEDICINE [facility] [place] [facility] Mar 08, 2024 10:30 AM AMBULATORY - MEDICINE [place] [facility] [place] [facility] Mar 18, 2024 11:00 AM AMBULATORY - MEDICINE [place] [facility] [place] [facility] Mar 25, 2024 10:00 AM AMBULATORY - MEDICINE [place] [facility] [place] [facility] Apr 04, 2024 03:00 PM AMBULATORY - MEDICINE [place] [facility] [place] [facility] Social History: Smoking Status (Most current) and Tobacco Use (All prior to encounter date) This section includes the most current, and the historical, smoking and tobacco- related health factors from the [place] facility where the Encounter took place. Current Smoking Status This section includes the most current smoking, or tobacco-related health factor, from the [place] facility where the Encounter took place. Date/Time Current Smoking Status Comment Facil ity Apr 26, 2023 10:00 AM VA-TOBACCO FORMER USER [place] [facility] [place] [facility] Tobacco Use History This section includes a history of the smoking, or tobacco-related health factors, that were collected on or before the date of the Encounter. The data comes from the [place] facility where the Encounter took place. Date/Time Smoking Status/Tobacco Use Comment F acility Apr 26, 2023 10:00 AM VA-TOBACCO QUIT 15 YRS OR MORE [facility] [place] [facility] Mar 30, 2022 11:00 AM VA-TOBACCO FORMER USER [facility] [place] [facility] Mar 30, 2022 11:00 AM VA-TOBACCO QUIT 15 YRS OR MORE [facility] [place] [facility] Mar 17, 2021 01:30 PM VA-TOBACCO FORMER USER [facility] [place] [facility] Mar 17, 2021 01:30 PM VA-TOBACCO NEVER USED [facility] [place] [facility] Mar 17, 2021 01:30 PM VA-TOBACCO QUIT 15 YRS OR MORE [facility] [place] [facility] Mar 31, 2020 10:30 AM VA-TOBACCO FORMER USER [facility] [place] [facility] Mar 31, 2020 10:30 AM VA-TOBACCO QUIT 15 YRS OR MORE [facility] [place] [facility] Nov 23, 2018 12:07 PM VA-TOBACCO FORMER USER [facility] [place] [facility] Nov 23, 2018 12:07 PM VA-TOBACCO QUIT 15 YRS OR MORE [facility] [place] [facility] Nov 22, 2017 10:02 AM VA-TOBACCO NEVER USED [facility] [place] [facility] Mar 14, 2017 09:31 AM LIFETIME NON-TOBACCO USER [facility] [place] [facility] Mar 01, 2016 02:51 PM LIFETIME NON-TOBACCO USER [facility] [place] [facility] Feb 10, 2015 09:31 AM QUIT TOBACCO USE > 7 YEARS AGO quit in 1964 [place] [facility] [place] [facility] Encounter Notes: All associated encounter notes This section contains the clinical notes associated to the Encounter. Date/Time Encounter Note(s) Provider Source Nov 06, 2023 02:37 PM ACUPUNCTURE NOTE: LOCAL TITLE: ACUPUNCTURE TREATMENT STANDARD TITLE: ACUPUNCTURE NOTE DATE OF NOTE: NOV 06, 2023@14:37 ENTRY DATE: NOV 06, 2023@14:37:46 AUTHOR: DAE WALSH EXP COSIGNER: URGENCY: STATUS: [...] MCALLISTER Arthritis 716.90 01/24/2007 RE MCALLISTER Date Oct CC / HPI - [place] presents with Hx of chronic back pain that started during his service. Injured during a parachute jump and never reported injury. Pain was intermittent for many years but in the past 10 years has become constant and progressively worse. [place] reports that walking any distance will induce pain in mid and low back of 8/10. Makes grocery shopping and exercising difficult. [place] also states that if he stands for [...] at 1/3 output. BM's regular no problems. [place] states that his right hip pain which had been aggravating him after a car ride and his daughter's car was fully resolved after the last acupuncture treatment. [place] states that his back pain overall has been better since starting acupuncture and that simple things like going to the grocery store do not cause him to sit down every 20 minutes. states he has more resilience overall. OBJECTIVE General: . Patient in no apparent [...] ]Pyonex Needle: remove prior to bathing per allergist/pediatric pulmonologist INFORMED CONSENT: Oral Consent obtained on Oct The patient was positioned comfortably. 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
--- OUTSIDE RECORDS SUMMARY | 2024-03-20 14:01 | XMS_ITS ---
Author Name [facility] [place] [facility] [place] Address [address] [place] [address] Care Team Providers Care Ventilator Specialist Name Role Phone SOFI MANCERA Primary [...] to Policy [place] MED[place]ARE SUPPLEMEN TAL MEDEX [facility] Mar 13, 2015 [id number] VERONICA BROWN RT PATIENT MEDICARE (WNR) MEDICARE (M) PART B Aug 12, 2007 PART B [id number] VERONICA BROWN RT PATIENT MEDICARE (WNR) MEDICARE (M) PART A Jan 12, 2004 PART A [id number] VERONICA BROWN RT PATIENT Selected Encounter This section includes the information on record at [place] for the Encounter. Date/Time Encounter Type Encounter Description Reason Provider Source Oct 18, 2023 10:00 AM OFF/OP EST JULY X REQ PHY/QHP PRIMARY CARE/MEDICINE ICD-10-CM Z71.89 Other specified counseling JEANETTE GARCIA [facility] Encounter Template Text not used by [place] Assessments - Encounter Diagnoses This section includes the primary and secondary diagnoses documented for the Encounter. Date/Time Primary/Secondary Diagnosis Diagnosis Name Provider Source Nov 14, 2023 08:40 AM PRIMARY Other specified counseling JEANETTE GARCIA [place] [facility] [place] [facility] Plan of Treatment: Future Appointments (+ 6 months) and Future Tests (+/- 45 days) The Plan of Treatment section includes future care activities for the patient from all [place] treatmentfacilities. This section includes future appointments and future orders which are active, pending or scheduled. Future Appointments This section includes appointments that were scheduled to occur 6 months from the date of the Encounter, up to a maximum of 20 appointments. The data comes from all [place] treatment facilities. Appointment Date/Time Appointment Type Appointme nt Facility Name Oct 30, 2023 09:00 AM AMBULATORY - MEDICINE [facility] [place] [facility] Nov 06, 2023 01:00 PM AMBULATORY - MEDICINE [facility] [place] [facility] Nov 20, 2023 09:30 AM AMBULATORY - MEDICINE [facility] [place] [facility] Dec 18, 2023 09:30 AM AMBULATORY - MEDICINE [place] [facility] [place] [facility] Dec 27, 2023 02:00 PM AMBULATORY - MEDICINE [facility] [place] [facility] Dec 29, 2023 01:30 PM AMBULATORY - MEDICINE [facility] [place] [facility] Jan 01, 2024 02:30 PM AMBULATORY - MEDICINE [facility] [place] [facility] Jan 08, 2024 03:30 PM AMBULATORY - MEDICINE [facility] [place] [facility] Jan 29, 2024 10:30 AM AMBULATORY - MEDICINE [facility] [place] [facility] Jan 30, 2024 03:30 PM AMBULATORY - MEDICINE [facility] [place] [facility] 2024 02:30 PM AMBULATORY - MEDICINE [facility] [place] [facility] Feb 05, 2024 11:00 AM AMBULATORY - MEDICINE [facility] [place] [facility] Feb 06, 2024 03:00 PM AMBULATORY - MEDICINE [facility] [place] [facility] Feb 09, 2024 02:00 PM AMBULATORY - MEDICINE [facility] [place] [facility] Feb 12, 2024 11:00 AM AMBULATORY - MEDICINE [place] [facility] [place] [facility] Feb 15, 2024 01:00 PM AMBULATORY - MEDICINE [facility] [place] [facility] Feb 22, 2024 01:00 PM AMBULATORY - MEDICINE [place] [facility] [place] [facility] Feb 29, 2024 09:00 AM AMBULATORY - MEDICINE [facility] [place] [facility] Mar 08, 2024 10:30 AM AMBULATORY - MEDICINE [facility] [place] [facility] Mar 18, 2024 11:00 AM AMBULATORY - MEDICINE [place] [facility] [place] [facility] Lab Results: +/- 30 days of the encounter This section includes the Chemistry and Hematology Lab Results on record with [place] for the patient. Radiology Reports and Pathology Reports are provided separately, in subsequent sections. Lab Results This section contains the Chemistry/Hematology Results that were resulted 30 days before or 30 daysafter the date of the Encounter. Date/Time Source Result Type Result - Unit Interpretation Reference Range Comment Oct 04, 2023 11:44 AM [facility] [place] [facility] FERRITIN Specimen Type: SERUM No comment entered. Ordering Provider: NEENA STEVENS Report Released Date/Time: May 09, 2023 11:25 AM Reporting Lab: [facility] [place] [facility] [address] [facility] [address] Performing Lab: [facility] [place] [address] [address] FERRITIN 73 ng/mL 20-300 Oct 04, 2023 11:44 AM [facility] [place] [facility] CBC Specimen Type: BLOOD No comment entered. Ordering Provider: NEENA STEVENS Report Released Date/Time: May 09, 2023 11:25 AM Reporting Lab: [facility] [place] [facility] [address] [facility] [address] Performing Lab: [place] [facility] [place] [address] [address] WBC 7.68 10*3/uL 4.50-11.00 RBC 4.42 10*6/uL 4.23-5.66 HGB 14.1 g/dL 12.8-17 HCT 42.3 39.2-50.4 MCV 95.7 fL 82-99 MCHC 33.3 g/dL 30.8-35.1 PLT 160 10*3/uL 140-360 RDW-CV 14.2 12.0-16.0 MCH 31.9 pg 26.2-32.6 Oct 04, 2023 11:44 AM [facility] MICROALBUMIN CREATININE RATIO PANEL Specimen Type: URINE No comment entered. Ordering Provider: NEENA STEVENS Report Released Date/Time: May 09, 2023 11:25 AM Reporting Lab: [facility] [address] [address] Performing Lab: [facility] [address] [address] MICROALBUMIN/C REATININE RATIO 89.0 mg/g H 0-29.9 MICROALBUMIN,Q UANTITATIVE 7.5 mg/dL RR UNAVAIL CREATININE URINE 84.27 mg/dL Oct 04, 2023 11:44 AM [facility] IRON & TIBC PANEL Specimen Type: SERUM No comment entered. Ordering Provider: NEENA STEVENS Report Released Date/Time: May 09, 2023 11:25 AM Reporting Lab: [facility] [address] [address] Performing Lab: [facility] [address] TIBC 342 ug/dL 204-475 IRON 96 ug/dL 40-160 Transferrin Saturation 28.1 20.0-50.0 Oct 04, 2023 11:44 AM [facility] BASIC METABOLIC PANEL (non-fasting) Specimen Type: SERUM No comment entered. Ordering Provider: NEENA STEVENS Report Released Date/Time: May 09, 2023 11:25 AM Reporting Lab: [facility] [address] [address] Performing Lab: [facility] [address] UREA NITROGEN 24 mg/dL 7-25 GLUCOSE 80 [...] AM 98.1 67 122/75 16 97 5 [place] [facility] [place] [facility] Social History: Smoking Status (Most current) and Tobacco Use (All prior to encounter date) This section includes the most current, and the historical, smoking and tobacco- related health factors from the [place] facility where the Encounter took place. Current Smoking Status This section includes the most current smoking, or tobacco-related health factor, from the [place] facility where the Encounter took place. Date/Time Current Smoking Status Comment María Elena ity Apr 26, 2023 10:00 AM VA-TOBACCO FORMER USER [facility] [place] [facility] Tobacco Use History This section includes a history of the smoking, or tobacco-related health factors, that were collected on or before the date of the Encounter. The data comes from the [place] facility where the Encounter took place. Date/Time Smoking Status/Tobacco Use Comment F acility Apr 26, 2023 10:00 AM VA-TOBACCO QUIT 15 YRS OR MORE [facility] [place] [facility] Mar 30, 2022 11:00 AM VA-TOBACCO FORMER USER [facility] [place] [facility] Mar 30, 2022 11:00 AM VA-TOBACCO QUIT 15 YRS OR MORE [facility] [place] [facility] Mar 17, 2021 01:30 PM VA-TOBACCO FORMER USER [facility] [place] [facility] Mar 17, 2021 01:30 PM VA-TOBACCO NEVER USED [facility] [place] [facility] Mar 17, 2021 01:30 PM VA-TOBACCO QUIT 15 YRS OR MORE [facility] [place] [facility] Mar 31, 2020 10:30 AM VA-TOBACCO FORMER USER [facility] [place] [facility] Mar 31, 2020 10:30 AM VA-TOBACCO QUIT 15 YRS OR MORE [facility] [place] [facility] Nov 23, 2018 12:07 PM VA-TOBACCO FORMER USER [facility] [place] [facility] Nov 23, 2018 12:07 PM VA-TOBACCO QUIT 15 YRS OR MORE [facility] [place] [facility] Nov 22, 2017 10:02 AM VA-TOBACCO NEVER USED [facility] [place] [facility] Mar 14, 2017 09:31 AM LIFETIME NON-TOBACCO USER [facility] [place] [facility] Mar 01, 2016 02:51 PM LIFETIME NON-TOBACCO USER [facility] [place] [facility] Feb 10, 2015 09:31 AM QUIT TOBACCO USE > 7 YEARS AGO quit in [facility] Encounter Notes: All associated encounter notes This section contains the clinical notes associated to the Encounter. Date/Time Encounter Note(s) Provider Source Oct 18, 2023 10:07 AM [facility] LOCAL TITLE: AMBULATORY/OUTPATIENT CARE NOTE STANDARD TITLE: PRIMARY CARE OUTPATIENT NOTE DATE OF NOTE: OCT 18, 2023@10:07 ENTRY DATE: OCT 18, 2023@10:07:23 AUTHOR: JEANETTE GARCIA EXP COSIGNER: URGENCY: STATUS: COMPLETED Kevin [id number] cut grass x 1 week ago, the following Monday he noticed a rash developing and it really started itching. It is still painful and itching. He has raised, red rash on legs (calf) bilaterally and left arm. He has calamine lotion on it. He has not tried oral meds or any other creams. /cas/ Jeanette Garcia RN, BSN Primary Care Signed: 10/18/2023 13:36 JEANETTE GARCIA [facility]
--- OUTSIDE RECORDS SUMMARY | 2024-03-20 14:01 | XMS_ITS ---
Author Name [facility] [place] Organization [facility] [place] [facility] [place] Address [address] [place] [address] Care Team Providers Care Program Director/Air Personality Name Role Phone SOFI MANCERA Primary Care [...] Relationship to Policy [place] [facility] VAIBHAV E Mar 13, 2015 [id number] VERONICA BROWN RT PATIENT MEDICARE (WNR) MEDICARE (M) PART B Aug 12, 2007 PART B [id number] VERONICA BROWN RT PATIENT MEDICARE (WNR) MEDICARE (M) PART A Jan 12, 2004 PART A [id number] VERONICA BROWN RT PATIENT Selected Encounter This section includes the information on record at [place] for the Encounter. Date/Time Encounter Type Encounter Description Reason Provider Source Oct 30, 2023 09:00 AM MTMS BY PHARM ADDL 15 MIN TELEPHONE PRIMARY CARE ICD-10-CM E11.9 Type 2 diabetes mellitus without complications RENETTA FRENCH Encounter Template Text not used by [place] Assessments - Encounter Diagnoses This section includes the primary and secondary diagnoses documented for the Encounter. Date/Time Primary/Secondary Diagnosis Diagnosis Name Provider Source Oct 30, 2023 09:00 AM PRIMARY Type 2 diabetes mellitus without complications RENETTA FRENCH [place] [facility] [place] [facility] Plan of Treatment: Future Appointments (+ [...] Appointment Type Appointme nt Facility Name Nov 06, 2023 01:00 PM AMBULATORY - MEDICINE [facility] [place] [facility] Nov 20, 2023 09:30 AM AMBULATORY - MEDICINE [facility] [place] [facility] Dec 18, 2023 09:30 AM AMBULATORY - MEDICINE [facility] [place] [facility] Dec 27, 2023 02:00 PM AMBULATORY - MEDICINE [facility] [place] [facility] Dec 29, 2023 01:30 PM AMBULATORY - MEDICINE [facility] [place] [facility] Jan 01, 2024 02:30 PM AMBULATORY - MEDICINE [facility] [place] [facility] Jan 08, 2024 03:30 PM AMBULATORY - MEDICINE [facility] [place] [facility] Jan 29, 2024 10:30 AM AMBULATORY - MEDICINE [facility] [place] [facility] Jan 30, 2024 03:30 PM AMBULATORY - MEDICINE [facility] [place] [facility] 2024 02:30 PM AMBULATORY - MEDICINE [facility] [place] [facility] Feb 05, 2024 11:00 AM AMBULATORY - MEDICINE [facility] [place] [facility] Feb 06, 2024 03:00 PM AMBULATORY - MEDICINE [facility] [place] [facility] Feb 09, 2024 02:00 PM AMBULATORY - MEDICINE [facility] [place] [facility] Feb 12, 2024 11:00 AM AMBULATORY - MEDICINE [facility] [place] [facility] Feb 15, 2024 01:00 PM AMBULATORY - MEDICINE [place] [facility] [place] [facility] Feb 22, 2024 01:00 PM AMBULATORY - MEDICINE [facility] [place] [facility] Feb 29, 2024 09:00 AM AMBULATORY - MEDICINE [facility] [place] [facility] Mar 08, 2024 10:30 AM AMBULATORY - MEDICINE [facility] [place] [facility] Mar 18, 2024 11:00 AM AMBULATORY - MEDICINE [facility] [place] [facility] Mar 25, 2024 10:00 AM [facility] Lab Results: +/- 30 days of [...] 04, 2023 11:44 AM [facility] FERRITIN Specimen Type: SERUM No comment entered. Ordering Provider: NEENA STEVENS Report Released Date/Time: May 09, 2023 11:25 AM Reporting Lab: [place] [facility] [place] [facility] [address] [facility] [address] Performing [facility] [address] [address] FERRITIN 73 ng/mL 20-300 Oct 04, 2023 11:44 AM [facility] CBC Specimen Type: BLOOD No comment entered. Ordering Provider: NEENA STEVENS Report Released Date/Time: May 09, 2023 11:25 AM Reporting Lab[facility] [address] [facility] [address] Performing Lab: [facility] [address] [address] WBC 7.68 10*3/uL 4.50-11.00 RBC 4.42 10*6/uL 4.23-5.66 HGB 14.1 g/dL 12.8-17 HCT 42.3 39.2-50.4 MCV 95.7 fL 82-99 MCHC 33.3 g/dL 30.8-35.1 PLT 160 10*3/uL 140-360 RDW-CV 14.2 12.0-16.0 MCH 31.9 pg 26.2-32.6 Oct 04, 2023 11:44 AM [facility] IRON & TIBC PANEL Specimen Type: SERUM No comment entered. Ordering Provider: NEENA STEVENS Report Released Date/Time: May 09, 2023 11:25 AM Reporting Lab: [address] [address] Performing Lab: [address] [address] TIBC 342 ug/dL 204-475 IRON 96 ug/dL 40-160 Transferrin Saturation 28.1 20.0-50.0 Oct 04, 2023 11:44 AM [facility] MICROALBUMIN CREATININE RATIO PANEL Specimen Type: URINE No comment entered. Ordering Provider: NEENA STEVENS Report Released Date/Time: May 09, 2023 11:25 AM Reporting Lab: [address] [address] Performing [facility]: [facility] [address] MICROALBUMIN/C REATININE RATIO 89.0 mg/g H 0-29.9 MICROALBUMIN,Q UANTITATIVE 7.5 mg/dL RR UNAVAIL CREATININE URINE 84.27 mg/dL Oct 04, 2023 11:44 AM [facility] BASIC METABOLIC PANEL (non-fasting) Specimen Type: SERUM No comment entered. Ordering Provider: NEENA STEVENS Report Released Date/Time: May 09, 2023 11:25 AM Reporting Lab: [facility] [address] [address] Performing Lab: [address] [address] UREA NITROGEN 24 mg/dL 7-25 GLUCOSE 80 [...] 26, 2023 10:00 AM VA-TOBACCO FORMER USER [place] [facility] [place] [facility] Tobacco Use History This section includes a history of the smoking, or tobacco-related health factors, that were collected on or before the date of the Encounter. The data comes from the [place] facility where the Encounter took place. Date/Time Smoking Status/Tobacco Use Comment F acility Apr 26, 2023 10:00 AM VA-TOBACCO QUIT 15 YRS OR MORE [facility] [place] [facility] Mar 30, 2022 11:00 AM VA-TOBACCO FORMER USER [facility] [place] [facility] Mar 30, 2022 11:00 AM VA-TOBACCO QUIT 15 YRS OR MORE [facility] [place] [facility] Mar 17, 2021 01:30 PM VA-TOBACCO FORMER USER [facility] [place] [facility] Mar 17, 2021 01:30 PM VA-TOBACCO NEVER USED [facility] [place] [facility] Mar 17, 2021 01:30 PM VA-TOBACCO QUIT 15 YRS OR MORE [facility] [place] [facility] Mar 31, 2020 10:30 AM VA-TOBACCO FORMER USER [facility] [place] [facility] Mar 31, 2020 10:30 AM VA-TOBACCO QUIT 15 YRS OR MORE [facility] [place] [facility] Nov 23, 2018 12:07 PM VA-TOBACCO FORMER USER [facility] [place] [facility] Nov 23, 2018 12:07 PM VA-TOBACCO QUIT 15 YRS OR MORE [facility] [place] [facility] Nov 22, 2017 10:02 AM VA-TOBACCO NEVER USED [facility] [place] [facility] Mar 14, 2017 09:31 AM LIFETIME NON-TOBACCO USER [facility] [place] [facility] Mar 01, 2016 02:51 PM LIFETIME NON-TOBACCO USER [facility] [place] [facility] Feb 10, 2015 09:31 AM QUIT TOBACCO USE > 7 YEARS AGO quit in 1964 [facility] Encounter Notes: All associated encounter notes This section contains the clinical notes associated to the Encounter. Date/Time Encounter Note(s) Provider Source Oct 30, 2023 10:16 AM ADDENDUM: LOCAL TITLE: Addendum STANDARD TITLE: ADDENDUM DATE OF NOTE: OCT 30, 2023@10:16:40 ENTRY DATE: OCT 30, 2023@10:16:40 AUTHOR: RENETTA FRENCH EXP COSIGNER: URGENCY: STATUS: COMPLETED AMSA, please schedule appointment for: - Cwm/No/Tele/Pharm/Pact 2 Please schedule for 11/20/23 @0930 Thank you! /cas/ RENETTA FRENCH PHARMD, BCPS CLINICAL PHARMACIST PRACTITIONER Signed: 10/30/2023 10:17 Receipt Acknowledged By: 10/30/2023 11:22 /es/ RENEE MORRIS AMSA --- Original Document --- 10/30/23 TELEPHONE NOTE/PHARMACY: JACQUELYN BROWN, 83 yo WHITE MALE, presents for telephone follow-up for diabetes management. OCT 30, 2023 Known Allergies: METFORMIN, LISINOPRIL, ATORVASTATIN Subjective: referred to pharmacy clinic for diabetes management. At time of last visit, semaglutide was titrated to 0.5mg and insulin glargine-yfgn was reduced. Pt had noticed changes to his vision in left eye and followed up non-VA optometry and non-VA retinal specialist. 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 Pt received an injection and has noticed improvement in vision. Today pt reports he is doing well. [place] states that he incorrectly gave himself 0.25 mg for his last dose so has not started on the 0.5mg dose yet but will this week. Reports mild nausea after injection but reports it goes away after an hour or so. Denies additional ADRs to medication or s/sx of hypoglycemia. Pt notes that he has not gone to gym over last three weeks due to hip pain but went yesterday for 45 minutes. States between my physical activity and not doing a good job on what I am eating, I can see my blood sugar increasing . States his blood sugar was 430 mg/dl yesterday after a slice of strawberry cheesecake. Target Goals: A1C: <8%; FB-150 mg/dl Personal goals: - Maintain diabetes - Lose weight - eliminate insulin Objective: Diabetes Medication Regimen: Current diabetes medications: - insulin glargine-yfgn 10 units in the evening - Semaglutide 0.25 [...] empagliflozin was prescribed but then discontinued. SMBG: Date FBG 2hr PPBG 10/29/23 171 430 10/28/23 176 235 10/27/23 156 306 10/26/23 135 292 10/25/23 159 315 10/24/23 132 360 10/23/23 119 310 10/22/23 164 308 Average: 152 320 Date FBG 2hr PPBG 10/16/23 138 10/15/23 [...] 120 177 SMBG assessment: FPBG and PPBG above goal now HYPOGLYCEMIC Events: 0 in last 2 weeks [...] Pt currently at goal (A1C 6.3% 08/23/23). Fasting and post prandial blood glucose increasing, likely due to dietary excursions and lack of physical activity. Note that insulin was reduced empirically to 10 units during titration of 0.25mg to 0.5mg but pt has not started 0.5mg yet (scheduled to start 10/14/23). Will defer changes to insulin in setting of pt increasing physical activity, working on dietary excursions (primarily complex carbs and candy bars), and now increasing semaglutide to 0.5mg. CARDIOVASCULAR: For patients 60 years and over with Diabetes, recommend a goal of <140/90, with added benefit of reducing SBP closer to 130. 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 (To start 10/30/23) - Medications reconciled - Otherwise continue current medications Lifestyle modifications: - Continue to SMBG 2x/day - Monitor for s/sx hypoglycemia and contact clinic if BG consistently <70mg/dL - Healthy dietary and lifestyle modifications encouraged - Repeat A1c: 02/2024 MISC: EDUCATION -A shared decision-making approach was used in the development of this plan, involving the [place], clinician, and any caregivers present. The [place] was provided the opportunity express questions or concerns, and the plan was adjusted as needed to address these concerns. -Reviewed with any new medications, changes to the medication list, education, and plan from today's visit. Patient (and/or caregiver) verbalized understanding of the plan, including possible known risks and benefits, and had no additional questions. RTC: 11/20/23 @8020 (Tele)(landline) Time Spent: 30 minutes PBM PharmD Pharmacotherapy Rem V12: PHARMACIST INTERVENTIONS: TYPE 2 DIABETES MELLITUS Medication monitoring, no dosage change required, continue to monitor and assess Medication reconciliation (changes to active VA and non-VA medication lists to reconcile differences) No changes to medication lists made (medication review completed, no discrepancies identified) /cas/ RENETTA FRENCH PHARMD, BCPS CLINICAL PHARMACIST PRACTITIONER Signed: 10/30/2023 10:16 RENETTA FRENCH [facility] [place] [facility] Oct 30, 2023 09:15 AM PHARMACY TELEPHONE ENCOUNTER NOTE: LOCAL TITLE: TELEPHONE NOTE/PHARMACY STANDARD TITLE: PHARMACY TELEPHONE ENCOUNTER NOTE DATE OF NOTE: OCT 30, 2023@09:15 ENTRY DATE: OCT 30, 2023@09:16:03 AUTHOR: RENETTA FRENCH EXP COSIGNER: URGENCY: STATUS: COMPLETED TELEPHONE NOTE/PHARMACY Has ADDENDA JACQUELYN BROWN, 83 yo WHITE MALE, presents for telephone follow-up for diabetes management. OCT 30, 2023 Known Allergies: METFORMIN, LISINOPRIL, ATORVASTATIN Subjective: [place] referred to pharmacy clinic for diabetes management. At time of last visit, semaglutide was titrated to 0.5mg and insulin glargine-yfgn was reduced. Pt had noticed changes to his vision in left eye and followed up non-VA optometry and non-VA retinal specialist. 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 Pt received an injection and has noticed improvement in vision. Today pt reports he is doing well. states that he incorrectly gave himself 0.25 mg for his last dose so has not started on the 0.5mg dose yet but will this week. Reports mild nausea after injection but reports it goes away after an hour or so. Denies additional ADRs to medication or s/sx of hypoglycemia. Pt notes that he has not gone to gym over last three weeks due to hip pain but went yesterday for 45 minutes. States between my physical activity and not doing a good job on what I am eating, I can see my blood sugar increasing . States his blood sugar was 430 mg/dl yesterday after a slice of strawberry cheesecake. Target Goals: A1C: <8%; FB-150 mg/dl Personal goals: - Maintain diabetes - Lose weight - eliminate insulin Objective: Diabetes Medication Regimen: Current diabetes medications: - insulin glargine-yfgn 10 units in the evening - Semaglutide 0.25 [...] empagliflozin was prescribed but then discontinued. SMBG: Date FBG 2hr PPBG 10/29/23 171 430 10/28/23 176 235 10/27/23 156 306 10/26/23 135 292 10/25/23 159 315 10/24/23 132 360 10/23/23 119 310 10/22/23 164 308 Average: 152 320 Date FBG 2hr PPBG 10/16/23 138 10/15/23 [...] 120 177 SMBG assessment: FPBG and PPBG above goal now HYPOGLYCEMIC Events: 0 in last 2 weeks [...] Pt currently at goal (A1C 6.3% 08/23/23). Fasting and post prandial blood glucose increasing, likely due to dietary excursions and lack of physical activity. Note that insulin was reduced empirically to 10 units during titration of 0.25mg to 0.5mg but pt has not started 0.5mg yet (scheduled to start 10/14/23). Will defer changes to insulin in setting of pt increasing physical activity, working on dietary excursions (primarily complex carbs and candy bars), and now increasing semaglutide to 0.5mg. CARDIOVASCULAR: For patients 60 years and over with Diabetes, recommend a goal of <140/90, with added benefit of reducing SBP closer to 130. 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 (To start 10/30/23) - Medications reconciled - Otherwise continue current medications Lifestyle modifications: - Continue to SMBG 2x/day - Monitor for s/sx hypoglycemia and contact clinic if BG consistently <70mg/dL - Healthy dietary and lifestyle modifications encouraged - Repeat A1c: 02/2024 MISC: EDUCATION -A shared decision-making approach was used in the development of this plan, involving the , clinician, and any caregivers present. The [place] was provided the opportunity express questions or concerns, and the plan was adjusted as needed to address these concerns. -Reviewed with [place] any new medications, changes to the medication list, education, and plan from today's visit. Patient (and/or caregiver) verbalized understanding of the plan, including possible known risks and benefits, and had no additional questions. RTC: 11/20/23 @0930 (Tele)(landline) Time Spent: 30 minutes PBM PharmD Pharmacotherapy Rem V12: PHARMACIST INTERVENTIONS: TYPE 2 DIABETES MELLITUS Medication monitoring, no dosage change required, continue to monitor and assess Medication reconciliation (changes to active VA and non-VA medication lists to reconcile differences) No changes to medication lists made (medication review completed, no discrepancies identified) /aida FRENCH PHARMD, MONIQUES CLINICAL PHARMACIST PRACTITIONER Signed: 10/30/2023 10:16 10/30/2023 ADDENDUM STATUS: COMPLETED AMSA, please schedule appointment for: - Cwm/No/Tele/Pharm/Pact 2 Please schedule for 11/20/23 @0930 Thank you! /aida FRENCH PHARMD, BCPS CLINICAL PHARMACIST PRACTITIONER Signed: 10/30/2023 10:17 Receipt Acknowledged By: * AWAITING SIGNATURE * RENEE MORRIS ADITIYA [facility] [place] [facility]
--- OUTSIDE RECORDS SUMMARY | 2024-03-20 14:01 | XMS_ITS | Encounter Summary ---
Author Name [facility] [place] [facility] [place] Address [address] [place] [address] Care Team Providers Care Retort Load Expediter Name Role Phone SOFI MANCERA Primary Care [...] Relationship to Policy [place] BC[place] [facility] CHARAN Haque Mar 13, 2015 [id number] VERONICA BROWN RT PATIENT MEDICARE (WNR) MEDICARE (M) PART B Aug 12, 2007 PART B [id number] VERONICA BROWN RT PATIENT MEDICARE (WNR) MEDICARE (M) PART A Jan 12, 2004 PART A [id number] VERONICA BROWN RT PATIENT Selected Encounter This section includes the information on [place] at [place] for the Encounter. Date/Time Encounter Type Encounter Description Reason Provider Source Nov 20, 2023 09:30 AM MTMS BY PHARM EST 15 MIN TELEPHONE PRIMARY CARE ICD-10-CM E11.9 Type 2 diabetes mellitus without complications RENETTA FRENCH Encounter Template Text not used by [place] Assessments - Encounter Diagnoses This section includes the primary and secondary diagnoses documented for the Encounter. Date/Time Primary/Secondary Diagnosis Diagnosis Name Provider Source Nov 20, 2023 09:30 AM PRIMARY Type 2 diabetes mellitus without complications RENETTA FRENCH [facility] Plan of Treatment: Future Appointments (+ 6 [...] Date/Time Appointment Type Appointme nt Facility Name Dec 18, 2023 09:30 AM AMBULATORY [place]ICINE [facility] [place] [facility] Dec 27, 2023 02:00 PM AMBULATORY [facility]INE [facility] Dec 29, 2023 01:30 PM [facility] [place] [facility] Jan 01, 2024 02:30 PM [facility]UL[facility]ORY [facility]INE [facility] Jan 08, 2024 03:30 PM [facility]ORY [facility]INE [facility] Jan 29, 2024 10:30 AM [facility] Jan 30, 2024 03:30 PM [facility]ICINE [facility] 2024 02:30 PM [facility]AT[facility]ICINE [facility] Feb 05, 2024 11:00 AM [facility] Feb 06, 2024 03:00 PM [facility] Feb 09, 2024 02:00 PM [facility] Feb 12, 2024 11:00 AM [facility] Feb 15, 2024 01:00 PM [facility]ATORY [facility]INE [facility] [place] Feb 22, 2024 01:00 PM [facility]ORY [facility]ICINE [facility] [place] [facility] Feb 29, 2024 09:00 AM [facility]ORY [facility] MEDICINE [facility] Mar 08, 2024 10:30 AM [facility]UL[facility]ORY [facility] MEDICINE [facility] Mar 18, 2024 11:00 AM [facility]ORY [facility] MEDICINE [facility] Mar 25, 2024 10:00 AM [facility]ATORY [facility]ICINE [facility] [place] [facility] Apr 04, 2024 03:00 PM [facility]UL[facility]ORY - MEDICINE [facility] [place] [facility] Apr 05, 2024 11:00 AM [facility]ULATORY [place]ICINE [facility] [place] [facility] Social History: Smoking Status (Most current) and [...] Date/Time Current Smoking Status Comment María Elena wallsy Apr 26, 2023 10:00 AM VA-TOBACCO FORMER USER [place] [facility] [facility] Tobacco Use History This section includes a history of the smoking, or tobacco-related health factors, that were collected on or before the date of the Encounter. The data comes from the [place] facility where the Encounter took place. Date/Time Smoking Status/Tobacco Use Comment F acshahbaz Apr 26, 2023 10:00 AM VA-TOBACCO QUIT 15 YRS OR MORE [facility] [place] [facility] Mar 30, 2022 11:00 AM VA-TOBACCO FORMER USER [facility] [place] Mar 30, 2022 11:00 AM VA-TOBACCO QUIT 15 YRS OR MORE [facility] [place] Mar 17, 2021 01:30 PM VA-TOBACCO FORMER USER [facility] [place] [facility] Mar 17, 2021 01:30 PM VA-TOBACCO NEVER USED [facility] [place] [facility] Mar 17, 2021 01:30 PM VA-TOBACCO QUIT 15 YRS OR MORE [facility] [place] [facility] Mar 31, 2020 10:30 AM VA-TOBACCO FORMER USER [facility] [place] [facility] Mar 31, 2020 10:30 AM VA-TOBACCO QUIT 15 YRS OR MORE [facility] [place] [facility] Nov 23, 2018 12:07 PM VA-TOBACCO FORMER USER [facility] [place] [facility] Nov 23, 2018 12:07 PM VA-TOBACCO QUIT 15 YRS OR MORE [facility] [place] [facility] Nov 22, 2017 10:02 AM VA-TOBACCO NEVER USED [facility] [place] [facility] Mar 14, 2017 09:31 AM LIFETIME NON-TOBACCO USER [facility] [place] [facility] Mar 01, 2016 02:51 PM LIFETIME NON-TOBACCO USER [facility] [place] [facility] Feb 10, 2015 09:31 AM QUIT TOBACCO USE > 7 YEARS AGO [place] in 1963 [place] [facility] [place] [facility] Encounter Notes: All associated encounter notes This section contains the clinical notes associated to the Encounter. Date/Time Encounter Note(s) Provider Source Nov 20, 2023 12:03 PM ADDENDUM: LOCAL TITLE: Addendum STANDARD TITLE: ADDENDUM DATE OF NOTE: NOV 20, 2023@12:03:43 ENTRY DATE: NOV 20, 2023@12:03:44 AUTHOR: RENETTA FRENCH EXP COSIGNER: URGENCY: STATUS: COMPLETED AMSA, please schedule appointment for: - Cwm/No/Tele/Pharm/Pact 2 Please schedule for 12/18/23 @0930 Thank you! /cas/ RENETTA FRENCH PHARMD, BCPS CLINICAL PHARMACIST PRACTITIONER Signed: 11/20/2023 12:04 Receipt Acknowledged By: 11/20/2023 13:18 /cas/ RENEE MORRIS AMSA --- Original Document --- 11/20/23 TELEPHONE NOTE/PHARMACY: JACQUELYN Haque KEVIN, 83 yo WHITE MALE, presents for telephone follow-up for diabetes management. SEOP 2023 Known Allergies: METFORMIN, LISINOPRIL, ATORVASTATIN Subjective: Linn referred to pharmacy clinic for diabetes management. At time of last visit, semaglutide and insulin glargine-yfgn were continued. Today pt reports he is doing well. Reports intermittent bouts of constipation; continues to have 1 or more BM /day. Denies N/V/D or other ADRs. 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 Pt reports it is helping. States weight is 214 lbs in the am (~7 lb weight reduction). Pt is having more soup but continues to have protein in it. Due to pain, pt has stopped going to the gym until his body feels better. Target Goals: A1C: <8%; FB-150 mg/dl Personal goals: - Maintain diabetes - Lose weight - eliminate insulin Objective: Diabetes Medication Regimen: Current diabetes medications: - insulin glargine-yfgn 10 units in the evening - Semaglutide 0.5 mg once weekly Previous diabetes medications: - [...] was prescribed but then discontinued. SMBG: Date 11/20/23 115 11/19/23 119 117 11/18/23 123 113 11/17/23 104 173 11/16/23 122 138 11/15/23 114 151 11/14/23 119 143 av 139 Date FBG 2hr PPBG 10/29/23 171 430 [...] 120 177 SMBG assessment: FPBG and PPBG at goal HYPOGLYCEMIC Events: 0 in last 2 weeks [...] (A1C 6.3% 08/23/23). Fasting and post prandial have now decreased after increasing semaglutide. May consider lowering insulin at f/u. Will continue with current course. Note that pt has reduced physical activity from previous due to pain. CARDIOVASCULAR: For patients 60 years and over with Diabetes, recommend a goal of <140/90, with added benefit of reducing SBP closer to 130. Current BP is 132/82 (09/01/2023 11:18) ASCVD: rosuvastatin ASA: on rivaroxaban Microalb: 129.2 mg/g (04/26/23) History of Preventive Care: Most recent visit to sample hand: 04/06/23 Most recent visit to feed inspection supervisor/opthalmologist: 04/24/23 History of diabetes without ocular manifestations Plan: Medication management: - CONTINUE insulin glargine-yfgn 10 units once daily - CONTINUE semaglutide 0.5 mg once a week - Medications reconciled - Otherwise continue current [...] benefits, and had no additional questions. RTC: 12/18/23 @7073 (Tele)(landline) Time Spent: 15 minutes PBM PharmD Pharmacotherapy Rem V12: PHARMACIST INTERVENTIONS: TYPE 2 DIABETES MELLITUS Medication monitoring, no dosage change required, continue to monitor and assess Medication reconciliation (changes to active VA and non-VA medication lists to reconcile differences) No changes to medication lists made (medication review completed, no discrepancies identified) /cas/ RENETTA FRENCH PHARMD, BCPS CLINICAL PHARMACIST PRACTITIONER Signed: 11/20/2023 12:03 11/20/2023 ADDENDUM STATUS: UNSIGNED You may not VIEW this UNSIGNED Addendum. RENETTA FRECNH [place] [facility] [place] [facility] Nov 20, 2023 10:11 AM PHARMACY TELEPHONE ENCOUNTER NOTE: LOCAL TITLE: TELEPHONE NOTE/PHARMACY STANDARD TITLE: PHARMACY TELEPHONE ENCOUNTER NOTE DATE OF NOTE: NOV 20, 2023@10:11 ENTRY DATE: NOV 20, 2023@10:12:04 AUTHOR: RENETTA FRENCH EXP COSIGNER: URGENCY: STATUS: COMPLETED TELEPHONE NOTE/PHARMACY Has ADDENDA JACQUELYN BROWN, 83 yo WHITE MALE, presents for telephone follow-up for diabetes management. SEOP 2023 Known Allergies: METFORMIN, LISINOPRIL, ATORVASTATIN Subjective: Linn referred to pharmacy clinic for diabetes management. At time of last visit, semaglutide and insulin glargine-yfgn were continued. Today pt reports he is doing well. Reports intermittent bouts of constipation; continues to have 1 or more BM /day. Denies N/V/D or other ADRs. 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 Pt reports it is helping. States weight is 214 lbs in the am (~7 lb weight reduction). Pt is having more soup but continues to have protein in it. Due to pain, pt has stopped going to the gym until his body feels better. Target Goals: A1C: <8%; FB-150 mg/dl Personal goals: - Maintain diabetes - Lose weight - eliminate insulin Objective: Diabetes Medication Regimen: Current diabetes medications: - insulin glargine-yfgn 10 units in the evening - Semaglutide 0.5 mg once weekly Previous diabetes medications: - [...] was prescribed but then discontinued. SMBG: Date 11/20/23 115 11/19/23 119 117 11/18/23 123 113 11/17/23 104 173 11/16/23 122 138 11/15/23 114 151 11/14/23 119 143 av 139 Date FBG 2hr PPBG 10/29/23 171 430 [...] 120 177 SMBG assessment: FPBG and PPBG at goal HYPOGLYCEMIC Events: 0 in last 2 weeks [...] (A1C 6.3% 08/23/23). Fasting and post prandial have now decreased after increasing semaglutide. May consider lowering insulin at f/u. Will continue with current course. Note that pt has reduced physical activity from previous due to pain. CARDIOVASCULAR: For patients 60 years and over with Diabetes, recommend a goal of <140/90, with added benefit of reducing SBP closer to 130. Current BP is 132/82 (09/01/2023 11:18) ASCVD: rosuvastatin ASA: on rivaroxaban Microalb: 129.2 mg/g (04/26/23) History of Preventive Care: Most recent visit to sample hand: 04/06/23 Most recent visit to feed inspection supervisor/opthalmologist: 04/24/23 History of diabetes without ocular manifestations Plan: Medication management: - CONTINUE insulin glargine-yfgn 10 units once daily - CONTINUE semaglutide 0.5 mg once a week - Medications reconciled - Otherwise continue current medications Lifestyle modifications: - Continue to SMBG 2x/day - Monitor for s/sx hypoglycemia and contact clinic if BG consistently <70mg/dL - Healthy dietary and lifestyle modifications encouraged - Repeat A1c: 02/2024 MISC: EDUCATION -A shared decision-making approach was used in the development of this plan, involving the Linn, clinician, and any caregivers present. The [place]inn was provided the opportunity express questions or concerns, and the plan was adjusted as needed to address these concerns. -Reviewed with any new medications, changes to the medication list, education, and plan from today's visit. Patient (and/or caregiver) verbalized understanding of the plan, including possible known risks and benefits, and had no additional questions. RTC: 12/18/23 @0930 (Tele)([facility]) Time Spent: 15 minutes PBM PharmD Pharmacotherapy Rem V12: PHARMACIST INTERVENTIONS: TYPE 2 DIABETES MELLITUS Medication monitoring, no dosage change required, continue to monitor and assess Medication reconciliation (changes to active VA and non-VA medication lists to reconcile differences) No changes to medication lists made (medication review completed, no discrepancies identified) /aida FRENCH PHARMD, BCPS CLINICAL PHARMACIST PRACTITIONER Signed: 11/20/2023 12:03 11/20/2023 ADDENDUM STATUS: COMPLETED AMSA, please schedule appointment for: - Cwm/No/Tele/Pharm/Pact 2 Please schedule for 12/18/23 @0930 Thank you! /aida FRENCH PHARMD, BCPS CLINICAL PHARMACIST PRACTITIONER Signed: 11/20/2023 12:04 Receipt Acknowledged By: 11/20/2023 13:18 /aida MICHEL 11/20/2023 ADDENDUM STATUS: COMPLETED AMSA scheduled RTC per request. /aida MICHEL Signed: 11/20/2023 13:18 [facility]
--- OUTSIDE RECORDS SUMMARY | 2024-03-20 14:01 | XMS_ITS | Encounter Summary ---
Author Name [facility] [place] Address [address] [place] [address] Care Team Providers Care Director Of Managed Care Name Role Phone SOFI MANCERA Primary Care [...] [place] MEDICARE JONELLE Haque Mar 13, 2015 [id number] VERONICA BROWN RT PATIENT MEDICARE (WNR) MEDICARE (M) PART B Aug 12, 2007 PART B [id number] VERONICA BROWN RT PATIENT MEDICARE (WNR) MEDICARE (M) PART A Jan 12, 2004 PART A [id number] VERONICA BROWN RT PATIENT Selected Encounter This section includes the information on record at [place] for the Encounter. Date/Time Encounter Type Encounter Description Reason Pro vider Source Oct 11, 2023 09:54 AM Outpatient Encounter EVENT (HISTORICAL) IHE Encounter Template Text not used by [facility] Plan of Treatment: Future Appointments (+ 6 months) and Future Tests (+/- 45 days) The Plan of Treatment section includes future care activities for the [facility] [place] [facility] This section includes future appointments [...] MEDICINE [facility] [place] [facility] Oct 30, 2023 09:00 AM AMBULATORY - MEDICINE [facility] [place] [facility] Nov 06, 2023 01:00 PM AMBULATORY - MEDICINE [facility] [place] [facility] Nov 20, 2023 09:30 AM AM[facility]ULATORY [facility] MEDICINE [facility] [place] [facility] Dec 18, 2023 09:30 AM AMBULATORY - MEDICINE [facility] [place] [facility] Dec 27, 2023 02:00 PM AMBULATORY - MEDICINE [facility] [place] [facility] Dec 29, 2023 01:30 PM AMBULATORY - MEDICINE [facility] [place] [facility] Jan 01, 2024 02:30 PM AMBULATORY - MEDICINE [facility] [place] [facility] Jan 08, 2024 03:30 PM AMBULATORY - MEDICINE [facility] [place] [facility] Jan 29, 2024 10:30 AM AMBULATORY - MEDICINE [facility] [place] [facility] Jan 30, 2024 03:30 PM AMBULATORY - MEDICINE [facility] [place] [facility] 2024 02:30 PM AMBULATORY - MEDICINE [facility] [place] [facility] Feb 05, 2024 11:00 AM AMBULATORY - MEDICINE [facility] [place] [facility] Feb 06, 2024 03:00 PM AMBULATORY - MEDICINE [facility] [facility] Feb 09, 2024 02:00 PM AMBULATORY - MEDICINE [facility] [place] [facility] Feb 12, 2024 11:00 AM AMBULATORY - MEDICINE [facility] [facility] Feb 15, 2024 01:00 PM AMBULATORY - MEDICINE [facility] [facility] Feb 22, 2024 01:00 PM [facility] Feb 29, 2024 09:00 AM [facility]ULAT[facility] Mar 08, 2024 10:30 AM AMBULATORY - MEDICINE [facility] Lab Results: +/- 30 days of the encounter This section includes the Chemistry and Hematology Lab Results on record with [place] for the patient. Radiology Reports and Pathology Reports are provided separately, in subsequent sections. Lab Results This section contains the Chemistry/Hematology Results that were resulted 30 days before or 30 daysafter the date of the Encounter. Date/Time Source Result Type Result - Unit Interpretation Reference Range Comment Oct 04, 2023 11:44 AM [facility] FERRITIN Specimen Type: SERUM No comment entered. Ordering Provider: NEENA STEVENS Report Released Date/Time: May 09, 2023 11:25 AM [facility] [address] [address] Performing Lab: [facility] [address] [address] FERRITIN 73 ng/mL 20-300 Oct 04, 2023 11:44 AM [facility] CBC Specimen Type: BLOOD No comment entered. Ordering Provider: NEENA STEVENS Report Released Date/Time: May 09, 2023 11:25 AM Reporting Lab: [address] [address] Performing Lab: [facility] [address] WBC 7.68 10*3/uL 4.50-11.00 RBC 4.42 10*6/uL 4.23-5.66 HGB 14.1 g/dL 12.8-17 HCT 42.3 39.2-50.4 MCV 95.7 fL 82-99 MCHC 33.3 g/dL 30.8-35.1 PLT 160 10*3/uL 140-360 RDW-CV 14.2 12.0-16.0 MCH 31.9 pg 26.2-32.6 Oct 04, 2023 11:44 AM [facility] IRON & TIBC PANEL Specimen Type: SERUM No comment entered. Ordering Provider: NEENA STEVENS Report Released Date/Time: May 09, 2023 11:25 AM Reporting Lab: [facility] [address] [facility] [address] Performing Lab: [address] [address] TIBC 342 ug/dL 204-475 IRON 96 ug/dL 40-160 Transferrin Saturation 28.1 20.0-50.0 Oct 04, 2023 11:44 AM [facility] MICROALBUMIN CREATININE RATIO PANEL Specimen Type: URINE No comment entered. Ordering Provider: NEENA STEVENS Report Released Date/Time: May 09, 2023 11:25 AM Reporting Lab: [address] [address] Performing Lab: [address] [address] MICROALBUMIN/C REATININE RATIO 89.0 mg/g H 0-29.9 MICROALBUMIN,Q UANTITATIVE 7.5 mg/dL RR UNAVAIL CREATININE URINE 84.27 mg/dL Oct 04, 2023 11:44 AM [facility] BASIC METABOLIC PANEL (non-fasting) Specimen Type: SERUM No comment entered. Ordering Provider: NEENA STEVENS Report Released Date/Time: May 09, 2023 11:25 AM Reporting Lab: [address] [address] Performing Lab: [address] [address] UREA NITROGEN 24 mg/dL 7-25 GLUCOSE 80 [...] 66 123/73 16 97 7 221 34 [place] [facility] [place] [facility] Social History: Smoking Status (Most [...] 26, 2023 10:00 AM VA-TOBACCO FOR[facility] [place] [facility] Tobacco Use History This section includes a history of the smoking, or tobacco-related health factors, that were collected on or before the date of the Encounter. The data comes from the [place] facility where the Encounter took place. Date/Time Smoking Status/Tobacco Use Comment F acility Apr 26, 2023 10:00 AM VA-TOBACCO QUIT 15 YRS OR MORE [facility] [place] [facility] Mar 30, 2022 11:00 AM VA-TOBACCO FORMER USER [facility] [place] [facility] Mar 30, 2022 11:00 AM VA-TOBACCO QUIT 15 YRS OR MORE [facility] [facility] Mar 17, 2021 01:30 PM VA-TOBACCO FORMER USER [facility] [facility] Mar 17, 2021 01:30 PM VA-TOBACCO NEVER USED [facility] [place] [facility] Mar 17, 2021 01:30 PM VA-TOBACCO QUIT 15 YRS OR MORE [facility] [facility] Mar 31, 2020 10:30 AM VA-TOBACCO FORMER USER [facility] [facility] Mar 31, 2020 10:30 AM VA-TOBACCO QUIT 15 YRS OR MORE [facility] [facility] Nov 23, 2018 12:07 PM VA-TOBACCO FORMER USER [facility] [facility] Nov 23, 2018 12:07 PM VA-TOBACCO QUIT 15 YRS OR MORE [facility] [place] [facility] Nov 22, 2017 10:02 AM VA-TOBACCO NEVER USED [place] [facility] [place] [facility] Mar 14, 2017 09:31 AM LIFETIME NON-TOBACCO USER [place] [facility] [place] [facility] Mar 01, 2016 02:51 PM LIFETIME NON-TOBACCO USER [place] [facility] [place] [facility] Feb 10, 2015 09:31 AM QUIT TOBACCO USE > 7 YEARS AGO quit in [address] [place] [address] [facility]
--- OUTSIDE RECORDS SUMMARY | 2024-03-20 14:01 | XMS_ITS | Encounter Summary ---
Author Name [facility] [place] [facility] [place] Address [address] [place] [address] Care Team Providers Care Wheelchair Van Operator First Responder Name Role Phone SOFI MANCERA Primary Care [...] [place] MEDIC[place] JONELLE Haque Mar 13, 2015 [id number] VERONICA BROWN RT PATIENT MEDICARE (WNR) MEDICARE (M) PART B Aug 12, 2007 PART B [id number] VERONICA BROWN RT PATIENT MEDICARE (WNR) MEDICARE (M) PART A Jan 12, 2004 PART A [id number] VERONICA BROWN RT PATIENT Selected Encounter This section includes the information on record at [place] for the Encounter. Date/Time Encounter Type Encounter Description Reason Pro vider Source August 08, 2023 12:00 AM Outpatient Encounter EVENT (HISTORICAL) IHE Encounter Template Text not used by [facility] Plan of Treatment: Future Appointments (+ 6 months) and Future Tests (+/- 45 days) The Plan of Treatment section includes future care activities for the [facility] [place] [facility] This section includes future appointments and future orders which are active, pending or scheduled. Future Appointments This section includes appointments that were scheduled to occur 6 months from the date of the Encounter, up to a maximum of 20 appointments. The data comes from all [place] treatment facilities. Appointment Date/Time Appointment Type Appointme nt Facility Name Aug 23, 2023 10:30 AM AMBULAT[facility] Sep 01, 2023 11:30 AM [facility] Sep 11, 2023 02:30 PM [facility]UL[facility] Sep 15, 2023 10:30 AM [facility] Oct 02, 2023 09:30 AM [facility] Oct 04, 2023 10:00 AM [facility] Oct 11, 2023 09:00 AM [facility] Oct 18, 2023 10:00 AM [facility]AT[facility] Oct 30, 2023 09:00 AM [facility]AT[facility] Nov 06, 2023 01:00 PM AM[facility]ULATORY [facility] Nov 20, 2023 09:30 AM [facility]ULAT[facility] Dec 18, 2023 09:30 AM [facility]ULATORY [facility] Dec 27, 2023 02:00 PM AMBULATORY [facility] Dec 29, 2023 01:30 PM AM[facility]ULATORY [facility] Jan 01, 2024 02:30 PM AM[facility]ULATORY [facility] Jan 08, 2024 03:30 PM AMBULATORY [facility]INE [facility] Jan 29, 2024 10:30 AM [facility] Jan 30, 2024 03:30 PM [facility] 2024 02:30 PM [facility] Feb 05, 2024 11:00 AM [facility]ULATORY - MEDIC[facility] Lab Results: +/- 30 days of the encounter This section includes the Chemistry and Hematology Lab Results on record with [place] for the patient. Radiology Reports and Pathology Reports are provided separately, in subsequent sections. Lab Results This section contains the Chemistry/Hematology Results that were resulted 30 days before or 30 daysafter the date of the Encounter. Date/Time Source Result Type Result - Unit Interpretation Reference Range Comment Aug 23, 2023 11:19 AM [facility] BASIC METABOLIC PANEL (fasting) Specimen Type: SERUM No comment entered. Ordering Provider: SOFI MANCERA Report Released Date/Time: Aug 20, 2023 07:51 PM Reporting Lab: [address] [address] Performing Lab: [address] [address] UREA NITROGEN 26 mg/dL H 7-25 GLUCOSE 120 mg/dL H 65-100 SODIUM 142 mmol/L 135-145 POTASSIUM 5.0 mmol/L 3.5-5.0 CHLORIDE 112 mmol/L H 100-110 CO2 25 meq/L 20-30 CREATININE, Serum 1.90 mg/dL H 0.50-1.40 eGFR(CKD-EPI 2020) 34 mL/min L >60 Aug 23, 2023 11:19 AM [facility] LIPID PANEL FASTING Specimen Type: SERUM No comment entered. Ordering Provider: SOFI MNACERA Report Released Date/Time: Aug 20, 2023 07:51 PM Reporting Lab: [address] [address] Performing Lab: [address] [address] CHOLESTEROL 130 mg/dL TRIGLYCERIDE 120 mg/dL 0-150 LDL calculated 54 mg/dL 0-129 CHOL/HDL 2.5 HDL CHOLESTEROL 52 mg/dL 40-60 Aug 23, 2023 11:19 AM [facility] LIVER FUNCTION Specimen Type: SERUM No comment entered. Ordering Provider: SOFI MANCERA Report Released Date/Time: Aug 20, 2023 07:51 PM Reporting Lab: [facility] [address] [facility] [address] Performing Lab: [address] [address] PROTEIN,TOTAL 6.3 g/dL 6.0-8.3 ALBUMIN 3.6 g/dL 3.5-5.0 ALKALINE PHOSPHATASE 66 U/L 40-150 AST 14 U/L 5-34 ALT 14 U/L BILIRUBIN, TOTAL 0.6 mg/dL 0.2-1.2 Aug 23, 2023 11:19 AM [facility] TSH Specimen Type: SERUM No comment entered. Ordering Provider: SOFI MANCERA Report Released Date/Time: Aug 20, 2023 07:51 PM Reporting Lab: [facility] [address] [facility] [address] Performing Lab: [facility] [address] [facility] [address] TSH 1.38 u[IU]/mL 0.35-5.00 Aug 23, 2023 11:19 AM [facility] HEMOGLOBIN A1C PANEL Specimen Type: BLOOD [...] Aug 20, 2023 07:51 PM Reporting Lab: [address] [address] Performing Lab: [address] [address] HEMOGLOBIN A1C 6.3 H 4.0-5.6 Aug 23, 2023 11:19 AM [facility] CBC AND DIFF (AUTO) Specimen Type: BLOOD No comment entered. Ordering Provider: SOFI MANCERA Report Released Date/Time: Aug 20, 2023 07:51 PM Reporting Lab: [facility] [address] [facility] [address] Performing Lab: [address] [address] WBC 7.43 10*3/uL 4.50-11.00 RBC 4.21 10*6/uL L 4.23-5.66 HGB 13.6 g/dL 12.8-17 HCT 40.0 39.2-50.4 MCV 95.0 fL 82-99 MCHC 34.0 g/dL 30.8-35.1 PLT 165 10*3/uL 140-360 RDW-CV 14.3 12.0-16.0 [place], Abs 0.72 10*3/uL 0.30-1.10 MCH 32.3 pg [...] 10*3/uL 0.00-0.06 Aug 23, 2023 11:19 AM [facility] URIC ACID Specimen Type: SERUM No comment entered. Ordering Provider: SOFI MANCERA Report Released Date/Time: Aug 20, 2023 07:51 PM Reporting Lab: [address] [address] Performing Lab: [address] [address] URIC ACID 3.0 mg/dL L 3.5-7.2 Aug 23, 2023 11:19 AM [facility] MICROALBUMIN CREATININE RATIO PANEL Specimen Type: URINE No comment entered. Ordering Provider: SOFI MANCERA Report Released Date/Time: Aug 20, 2023 07:51 PM Reporting Lab: [facility] [address] [facility] [address] Performing Lab: [facility] [address] [facility] [address] MICROALBUMIN/C REATININE RATIO canc mg/g 0-29.9 MICROALBUMIN,Q UANTITATIVE < 0.5 mg/dL RR UNAVAIL CREATININE URINE 108.02 mg/dL Aug 23, 2023 11:19 AM [facility] URINALYSIS CLEAN CATCH Specimen Type: URINE Comment: If Glucose = >500 and Ketones are positive, please alert the Physician. Ordering Provider: SOFI MANCERA Report Released Date/Time: Aug 20, 2023 07:51 PM Reporting Lab: [facility] [address] [facility] [address] Performing Lab: [address] [address] UA COLOR Light-Yellow Yellow UA APPEARANCE Clear [...] and tobacco- related health factors from the [place] facility where the Encounter took place. Current Smoking Status This section includes the most current smoking, or tobacco-related health factor, from the [place] facility where the Encounter took place. Date/Time Current Smoking Status Comment María Elena armijo Apr 26, 2023 10:00 AM [facility]-TOBACCO FORMER USER [facility] Tobacco Use History This section includes a history of the smoking, or tobacco-related health factors, that were collected on or before the date of the Encounter. The data comes from the [place] facility where the Encounter took place. Date/Time Smoking Status/Tobacco Use Comment F acshahbaz Apr 26, 2023 10:00 AM VA-TOBACCO QUIT 15 YRS OR MORE [facility] Mar 30, 2022 11:00 AM VA-TOBACCO FORMER USER [facility] Mar 30, 2022 11:00 AM VA-TOBACCO QUIT 15 YRS OR MORE [facility] Mar 17, 2021 01:30 PM VA-TOBACCO FORMER USER [facility] Mar 17, 2021 01:30 PM VA-TOBACCO NEVER USED [facility] Mar 17, 2021 01:30 PM VA-TOBACCO QUIT 15 YRS OR MORE [facility] Mar 31, 2020 10:30 AM VA-TOBACCO FORMER USER [facility] Mar 31, 2020 10:30 AM VA-TOBACCO QUIT 15 YRS OR MORE [facility] Nov 23, 2018 12:07 PM VA-TOBACCO FORMER USER [facility] Nov 23, 2018 12:07 PM VA-TOBACCO QUIT 15 YRS OR MORE [facility] Nov 22, 2017 10:02 AM VA-TOBACCO NEVER USED [facility] Mar 14, 2017 09:31 AM LIFETIME NON-TOBACCO USER [facility] Mar 01, 2016 02:51 PM LIFETIME NON-TOBACCO USER [facility] Feb 10, 2015 09:31 AM QUIT TOBACCO USE > 7 YEARS AGO [place] in 1964 [place] [facility] Encounter Notes: All associated encounter notes This section contains the clinical notes associated to the Encounter. Date/Time Encounter Note(s) Provider Source August 08, 2023 12:00 AM NONVA CONSULT: LOCAL TITLE: COMMUNITY CARE-CONSULT RESULT NOTE STANDARD TITLE: NONVA CONSULT DATE OF NOTE: AUGUST 08, 2023 ENTRY DATE: NOV 23, 2023@16:42:45 AUTHOR: TEJAS GALLEGOS EXP COSIGNER: URGENCY: STATUS: COMPLETED VistA Imaging - Scanned Document SCANNED DOCUMENT SIGNATURE NOT REQUIRED Electronically Filed: 11/23/2023 by: TEJAS MILLARD [facility]
--- OUTSIDE RECORDS SUMMARY | 2024-03-20 14:02 | XMS_ITS ---
Author Name [facility] [place] [facility] [place] [facility] [place] Address [address] [place] [address] Care Team Providers Care Top Spotter Name Role Phone SOFI MANCERA Primary Care [...] [facility] CHARAN Fountain Mar 13, [id number] [phone] [id number] VERONICA BROWN RT PATIENT MEDICARE (WNR) MEDICARE (M) PART B Aug 12, 2007 PART B [id number] VERONICA BROWN RT PATIENT MEDICARE (WNR) MEDICARE (M) PART A Jan 12, 2004 PART A [id number] VERONICA BROWN RT PATIENT Selected Encounter This section includes the information on record at [place] for the Encounter. Date/Time Encounter Type Encounter Description Reason Provider Source Dec 27, 2023 02:00 PM TRIM NAIL(S) PODIATRY ICD-10-CM E11.9 Type 2 diabetes mellitus without complications TYRON GALLOWAY Encounter Template Text not used by [place] Assessments - Encounter Diagnoses This section includes the primary and secondary diagnoses documented for the Encounter. Date/Time Primary/Secondary Diagnosis Diagnosis Name Provider Source Jan 17, 2024 10:06 AM PRIMARY Type 2 diabetes mellitus without complications TYRON GALLOWAY [place] [facility] [place] [facility] Jan 17, 2024 10:06 AM SECONDARY Nail dystrophy TYRON GALLOWAY [place] [facility] [place] [facility] Plan of Treatment: Future Appointments (+ 6 months) and Future Tests (+/- 45 days) The Plan of Treatment section includes future care activities for the patient from all [place] treatmentfacilities. This section includes future appointments and future orders which are active, pending or scheduled. Future Appointments This section includes appointments that were scheduled to occur 6 months from the date of the Encounter, up to a maximum of 20 appointments. The data comes from all [place] treatment facilities. Appointment Date/Time Appointment Type Appointme nt Facility Name Dec 29, 2023 01:30 PM AMBULATORY [place]ICINE [place] [facility] [place] [facility] Jan 01, 2024 02:30 PM [place]ULATORY [place] [facility] [place] [facility] Jan 08, 2024 03:30 PM [place]ULAT[place] [facility] [place] [facility] Jan 29, 2024 10:30 AM AM[place]ULATORY [place] [facility] [place] [facility] Jan 30, 2024 03:30 PM [place]ULATORY [place] [facility] [place] [facility] 2024 02:30 PM [place]ULAT[place] [facility] [place] [facility] Feb 05, 2024 11:00 AM AM[place]ULATORY [place] [facility] [place] [facility] Feb 06, 2024 03:00 PM AMBULATORY [place] [facility]ICINE [place] [facility] [place] [facility] Feb 09, 2024 02:00 PM AM[place]ULATORY [place] [facility] [place] [facility] Feb 12, 2024 11:00 AM AM[place]ULATORY [place]INE [place] [facility] [place] [facility] Feb 15, 2024 01:00 PM AMBULATORY [place]ICINE [place] [facility] [place] [facility] Feb 22, 2024 01:00 PM AM[place]ULATORY [place]INE [place] [facility] [place] [facility] Feb 29, 2024 09:00 AM AMBULATORY [place]ICINE [place] [facility] [place] [facility] Mar 08, 2024 10:30 AM AMBULATORY [place] MEDICINE [place] [facility] [place] [facility] Mar 18, 2024 11:00 AM AMBULATORY - MEDICINE [place] [facility] [place] [facility] Mar 25, 2024 10:00 AM AMBULATORY - MEDICINE [place] [facility] [place] [facility] Apr 04, 2024 03:00 PM AMBULATORY [place]ICINE [place] [facility] [place] [facility] Apr 05, 2024 11:00 AM AMBULATORY [place]ICINE [place] [facility] [place] [facility] Apr 08, 2024 03:30 PM AMBULATORY [place]ICINE [place] [facility] [place] [facility] Apr 23, 2024 01:00 PM AMBULATORY [place] [facility] [place] [facility] Lab Results: +/- 30 days of [...] Result - Unit Interpretation Reference Range Comment Dec 27, 2023 02:37 PM [place] [facility] VITAMIN D 25-OH (Therapy monitor) Specimen Type: SERUM Comment: Vitamin D, 25-Hydroxy reports concentrations of two common forms, 25-OHD2 and 25-OHD3. 25-OHD3 indicates both endogenous production and supplementation. 25-OHD2 is an indicator of exogenous sources such as diet or supplementation. Therapy is based on measurement of Total 25-OHD, with levels <20 ng/mL indicative of Vitamin D deficiency, while levels between 20 ng/mL and 30 ng/mL suggest insufficiency. Optimal levels are > or = 30 ng/mL. For additional information, please refer to http://education .[employer]/faq/OVP261 (This link is being provided for informational/ educational purposes only.) This test was developed and its analytical performance characteristics have been determined by [employer] [place], [place]. It has not been cleared or approved by the U.S. Food and Drug Administration. This assay has been validated pursuant to the CLIA regulations and is used for clinical purposes. This test was developed and its analytical performance characteristics have been determined by [employer] [place]. It has not been cleared or approved by the U.S. Food and Drug Administration. This assay has been validated pursuant to the CLIA regulations and is used for clinical purposes. Test Performed by [facility], [employer] [facility], [address] [place] [address] Juan Martinez M.D., Ph.D., Director of Laboratories , CLIA [id number] TEST PERFORMED AT: , Ordering Provider: SOFI MANCERA Report Released Date/Time: Dec 24, 2023 08:02 PM Reporting Lab: [address] [address] Performing Lab: [facility] [address] [facility], [address] [place] [id number] VITAMIN D, 25-OH, TOTAL 44 ng/mL 30-100 VITAMIN D, 25-OH, D3 44 ng/mL VITAMIN D, 25-OH, D2 <4 ng/mL Dec 27, 2023 02:37 PM [facility] TSH Specimen Type: SERUM No comment entered. Ordering Provider: SOFI MANCERA Report Released Date/Time: Dec 24, 2023 08:02 PM Reporting Lab: [facility] [address] [facility] [address] Performing Lab: [address] [address] TSH 0.79 u[IU]/mL 0.35-5.00 Dec 27, 2023 02:37 PM [facility] LIPID PANEL FASTING Specimen Type: SERUM No comment entered. Ordering Provider: SOFI MANCERA Report Released Date/Time: Dec 24, 2023 08:02 PM Reporting Lab: [facility] [address] [facility] [address] Performing Lab: [address] [address] CHOLESTEROL 129 mg/dL TRIGLYCERIDE 168 mg/dL H 0-150 LDL calculated 54 mg/dL 0-129 CHOL/HDL 3.1 HDL CHOLESTEROL 41 mg/dL 40-60 Dec 27, 2023 02:37 PM [facility] LIVER FUNCTION Specimen Type: SERUM No comment entered. Ordering Provider: SOFI MANCERA Report Released Date/Time: Dec 24, 2023 08:02 PM Reporting Lab: [address] [address] Performing Lab: [address] [address] PROTEIN,TOTAL 6.5 g/dL 6.0-8.3 ALBUMIN 3.4 g/dL L 3.5-5.0 ALKALINE PHOSPHATASE 74 U/L 40-150 AST 18 U/L 5-34 ALT 16 U/L BILIRUBIN, TOTAL 0.5 mg/dL 0.2-1.2 Dec 27, 2023 02:37 PM [facility] BASIC METABOLIC PANEL (fasting) Specimen Type: SERUM No comment entered. Ordering Provider: SOFI MANCERA Report Released Date/Time: Dec 24, 2023 08:02 PM Reporting Lab: [address] [address] Performing Lab: [address] [address] UREA NITROGEN 20 mg/dL 7-25 GLUCOSE 110 mg/dL H 65-100 SODIUM 141 mmol/L 135-145 POTASSIUM 4.4 mmol/L 3.5-5.0 CHLORIDE 111 mmol/L H 100-110 CO2 20 meq/L 20-30 CREATININE, Serum 1.98 mg/dL H 0.50-1.40 eGFR(CKD-EPI 2020) 32 mL/min L >60 Dec 27, 2023 02:37 PM [facility] HEMOGLOBIN A1C PANEL Specimen Type: BLOOD Comment: Values obtained from A1C measurements can vary. For atypical A1C assays, a reported value of 7.0 could actually be between 6.72 and 7.28 if measured by a reference method. A reported value of 9.0 could actually be between 8.73 and 9.27. Ref: http://www.ngsp. org/CAPdata.asp Ordering Provider: SOFI MANCERA Report Released Date/Time: Dec 24, 2023 08:02 PM Reporting Lab: [facility] [address] [facility] [address] Performing Lab: [facility] [address] [facility] [address] HEMOGLOBIN A1C 5.9 H 4.0-5.6 Dec 27, 2023 02:37 PM [facility] URIC ACID Specimen Type: SERUM No comment entered. Ordering Provider: SOFI MANCERA Report Released Date/Time: Dec 24, 2023 08:02 PM Reporting Lab: [facility] [address] [facility] [address] Performing Lab: [facility] [address] [facility] [address] URIC ACID 2.8 mg/dL L 3.5-7.2 Dec 27, 2023 02:37 PM [facility] MICROALBUMIN CREATININE RATIO PANEL Specimen Type: URINE No comment entered. Ordering Provider: SOFI MANCERA Report Released Date/Time: Dec 24, 2023 08:02 PM Reporting Lab: [facility] [address] [facility] [address] Performing Lab: [facility] [address] [facility] [address] MICROALBUMIN/ CREATININE RATIO 101.5 mg/g H 0-29.9 MICROALBUMIN, QUANTITATIVE 14.7 mg/dL RR UNAVAIL CREATININE URINE 144.88 mg/dL Dec 27, 2023 02:37 PM [facility] URINALYSIS CLEAN CATCH Specimen Type: URINE Comment: If Glucose = >500 and Ketones are positive, please alert the Physician. Ordering Provider: SOFI MANCERA Report Released Date/Time: Dec 24, 2023 08:02 PM Reporting Lab: [facility] [address] [facility] [address] Performing Lab: [address] [address] UA COLOR Yellow Yellow UA APPEARANCE Clear Clear UA GLUCOSE Normal mg/dL Negative UA KETONES NEGATIVE mg/dL Negative UA BLOOD NEGATIVE mg/dL Negative UA PROTEIN 30 mg/dL Negative UA NITRITE NEGATIVE mg/dL Negative UA BILIRUBIN NEGATIVE mg/dL Negative UA SPECIFIC GRAVITY 1.019 1.016-1.02 2 UA pH 6.0 5.0-9.0 UA UROBILINOGEN 2 mg/dL <2.0 UA LEUKOCYTE NEGATIVE Negative Dec 27, 2023 02:37 PM [facility] CBC AND DIFF (AUTO) Specimen Type: BLOOD No comment entered. Ordering Provider: SOFI MANCERA Report Released Date/Time: Dec 24, 2023 08:02 PM Reporting Lab: [facility] [address] [facility] [address] Performing Lab: [facility] [address] [facility] [address] WBC 9.67 10*3/uL 4.50-11.00 RBC 4.33 10*6/uL 4.23-5.66 HGB 13.8 g/dL 12.8-17 HCT 40.4 39.2-50.4 MCV 93.3 fL 82-99 MCHC 34.2 g/dL 30.8-35.1 PLT 218 10*3/uL 140-360 RDW-CV 13.9 12.0-16.0 MONO, ABS 0.65 10*3/uL 0.30-1.10 MCH 31.9 pg 26.2-32.6 NEUT % 71.9 43.7-75.8 LYMPH % 14.1 14.0-42.3 MONO % 6.7 5.1-13.7 EOS % 6.8 0.4-6.8 BASO % 0.3 0.1-2.0 NEUT, ABS 6.95 10*3/uL 2.20-7.60 LYMPH, ABS 1.36 10*3/uL 1.00-3.20 EOS, ABS 0.66 10*3/uL H 0.03-0.44 BASO, ABS 0.03 10*3/uL 0.01-0.13 IMMATURE GRAN % 0.2 0.0-0.7 IMMATURE GRAN, ABS 0.02 10*3/uL 0.00-0.06 NRBC % 0.0 0.0-0.0 NRBC, ABS 0.00 10*3/uL 0.00-0.00 Dec 27, 2023 02:37 PM [facility] MICROSCOPIC AUTOMATED, URINE Specimen Type: URINE Comment: If Glucose = >500 and Ketones are positive, please alert the Physician. Ordering Provider: SOFI MANCERA Report Released Date/Time: Dec 24, 2023 08:02 PM Reporting Lab: [facility] [address] [facility] [address] Performing Lab: [facility] [address] [facility] [address] UA WBC 0-5 /[HPF] 0-5 UA MUCUS FEW /[LPF] Trace UA RBC 3-5 /[HPF] 0-3 Social History: Smoking Status (Most current) and Tobacco Use (All prior to encounter date) This section includes the most current, and the historical, smoking and tobacco- related health factors from the [place] facility where the Encounter took place. Current Smoking Status This section includes the most current smoking, or tobacco-related health factor, from the [place] facility where the Encounter took place. Date/Time Current Smoking Status Comment Facil ity Apr 26, 2023 10:00 AM [place] [facility] Tobacco Use History This section includes a history of the smoking, or tobacco-related health factors, that were collected on or before the date of the Encounter. The data comes from the [place] facility where the Encounter took place. Date/Time Smoking Status/Tobacco Use Comment F acility Apr 26, 2023 10:00 AM VA-TOBACCO QUIT 15 YRS OR MORE [place] [facility] [place] [facility] Mar 30, 2022 11:00 AM VA-TOBACCO FORMER USER [place] [facility] [place] [facility] Mar 30, 2022 11:00 AM VA-TOBACCO QUIT 15 YRS OR MORE [facility] [place] [facility] Mar 17, 2021 01:30 PM VA-TOBACCO FORMER USER [facility] [place] [facility] Mar 17, 2021 01:30 PM [facility] [place] [facility] Mar 17, 2021 01:30 PM VA-TOBACCO QUIT 15 YRS OR MORE [facility] [place] [facility] Mar 31, 2020 10:30 AM VA-TOBACCO FORMER USER [facility] [place] [facility] Mar 31, 2020 10:30 AM VA-TOBACCO QUIT 15 YRS OR MORE [facility] [place] [facility] Nov 23, 2018 12:07 PM VA-TOBACCO FORMER USER [facility] [place] [facility] Nov 23, 2018 12:07 PM VA-TOBACCO QUIT 15 YRS OR MORE [facility] [place] [facility] Nov 22, 2017 10:02 AM VA-TOBACCO NEVER USED [place] [facility] [place] [facility] Mar 14, 2017 09:31 AM LIFETIME NON-TOBACCO USER [facility] [place] [facility] Mar 01, 2016 02:51 PM LIFETIME NON-TOBACCO USER [facility] [place] [facility] Feb 10, 2015 09:31 AM QUIT TOBACCO USE > 7 YEARS AGO quit in 1964 [place] [facility] [place] [facility] Encounter Notes: All associated encounter notes This section contains the clinical notes associated to the Encounter. Date/Time Encounter Note(s) Provider Source Dec 27, 2023 02:22 PM NURSING OUTPATIENT NOTE: LOCAL TITLE: NURSING/SPECIALTY CLINIC NOTE STANDARD TITLE: NURSING OUTPATIENT NOTE DATE OF NOTE: DEC 27, 2023@14:22 ENTRY DATE: DEC 27, 2023@14:22:47 AUTHOR: TYRON GALLOWAY COSIGNER: URGENCY: STATUS: COMPLETED [place] [facility] continued [...] to distal Pedal skin: [x ] Intact [ ] Dry [ ] Cracked [ ] Discolored Webspaces: [x ] Intact [x ] Clean [ ] Soiled [ ] Macerated [ ] Dry Nails: [x ] Thickened [x ] Elongated [x ] Dystrophic [ ] Discolored [ ] Fungal [ ] Incurvated [ ] Subungual debri Hyperkeratosis [ ] Yes, Locations: [ x] No Open lesions/wounds: [ ] Yes, Locations: [ x] No Amputations: [ ] Yes, Locations: [x ] No Edema present: ( ) Yes ( x ) NO Podiatric Problem List: [x ] Diabetes mellitus [ ] Peripheral vascular disease [ ] Neuropathy [ ] Onychomycosis [x ] Dystrophic toenails [ ] Hyperkeratosis/calluses [ ] Xerosis/dry skin [ ] Other: Treatment: [x ] Nails x 10 debrided in length and thickness without incident [ ] Hyperkeratotic lesions were grinded down with eletric precision jig grinder and debrided without incidence. [x ]Patient education educated about proper foot care and encouraged to check feet daily for injuries and wounds [x ] Instructed to moisturize feet daily but not in-between toes Patient is to RTC in 3 months. /cas/ TYRON GALLOWAY LPN LICENSED PRACTICAL NURSE Signed: 12/27/2023 14:25 Receipt Acknowledged By: 12/28/2023 09:13 /cas/ JOVI HAYES DPM PODIATRY ATTENDING TYRON GALLOWAY [facility]
--- OUTSIDE RECORDS SUMMARY | 2024-03-20 14:02 | XMS_ITS | Encounter Summary ---
Author Name [facility] [place] [facility] [place] [facility] [place] Address [address] [place] [address] Care Team Providers Care Golf Manager Name Role Phone SOFI MANCERA Primary Care [...] [place] MEDIC[place] JONELLE Haque Mar 13, 2015 [id number] VERONICA BROWN RT PATIENT MEDICARE (WNR) MEDICARE (M) PART B Aug 12, 2007 PART B [id number] VERONICA BROWN RT PATIENT MEDICARE (WNR) MEDICARE (M) PART A Jan 12, 2004 PART A [id number] VERONICA BROWN RT PATIENT Selected Encounter This section includes the information on record at [place] for the Encounter. Date/Time Encounter Type Encounter Description Reason Pro vider Source Aug 22, 2023 12:00 AM Outpatient Encounter EVENT (HISTORICAL) IHE Encounter Template Text not used by [facility] Plan of Treatment: Future Appointments (+ 6 months) and Future Tests (+/- 45 days) The Plan of Treatment section includes future care activities for the patient [facility] [place] [facility] This section includes future appointments and future orders which are active, pending or scheduled. Future Appointments This section includes appointments that were scheduled to occur 6 months from the date of the Encounter, up to a maximum of 20 appointments. The data comes from all [place] treatment facilities. Appointment Date/Time Appointment Type Appointme nt Facility Name Aug 23, 2023 10:30 AM [facility]UL[facility] Sep 01, 2023 11:30 AM [facility] Sep 11, 2023 02:30 PM [facility]ULATORY [facility] Sep 15, 2023 10:30 AM [facility] Oct 02, 2023 09:30 AM [facility] Oct 04, 2023 10:00 AM [facility]AT[facility] Oct 11, 2023 09:00 AM [facility]AT[facility] Oct 18, 2023 10:00 AM [facility]ULATORY [facility] Oct 30, 2023 09:00 AM [facility]AT[facility] Nov 06, 2023 01:00 PM [facility]ULATORY [facility]INE [facility] Nov 20, 2023 09:30 AM [facility]AT[facility] Dec 18, 2023 09:30 AM [facility]ATORY [facility]INE [facility] Dec 27, 2023 02:00 PM AMBULATORY [facility]INE [facility] Dec 29, 2023 01:30 PM [facility]ULATORY [facility] Jan 01, 2024 02:30 PM AM[facility]ULATORY [facility] Jan 08, 2024 03:30 PM AM[facility]ULATORY [facility]INE [facility] Jan 29, 2024 10:30 AM [facility]ULAT[facility] Jan 30, 2024 03:30 PM [place] [facility] 2024 02:30 PM [place] [facility] Feb 05, 2024 11:00 AM [facility] [facility] Lab Results: +/- 30 days of the encounter This section includes the Chemistry and Hematology Lab Results on record with [place] for the patient. Radiology Reports and Pathology Reports are provided separately, in subsequent sections. Lab Results This section contains the Chemistry/Hematology Results that were resulted 30 days before or 30 daysafter the date of the Encounter. Date/Time Source Result Type Result - Unit Interpretation Reference Range Comment Aug 23, 2023 11:19 AM [facility] BASIC METABOLIC PANEL (fasting) Specimen Type: SERUM No comment entered. Ordering Provider: SOFI MANCERA Report Released Date/Time: Aug 20, 2023 07:51 PM Reporting Lab: [address] [address] Performing Lab: [address] [address] UREA NITROGEN 26 mg/dL H 7-25 GLUCOSE 120 mg/dL H 65-100 SODIUM 142 mmol/L 135-145 POTASSIUM 5.0 mmol/L 3.5-5.0 CHLORIDE 112 mmol/L H 100-110 CO2 25 meq/L 20-30 CREATININE, Serum 1.90 mg/dL H 0.50-1.40 eGFR(CKD-EPI 2020) 34 mL/min L >60 Aug 23, 2023 11:19 AM [facility] TSH Specimen Type: SERUM No comment entered. Ordering Provider: SOFI MANCERA Report Released Date/Time: Aug 20, 2023 07:51 PM Reporting Lab: [address] [address] Performing Lab: [address] [address] TSH 1.38 u[IU]/mL 0.35-5.00 Aug 23, 2023 11:19 AM [facility] LIPID PANEL FASTING Specimen Type: SERUM No comment entered. Ordering Provider: SOFI MANCERA Report Released Date/Time: Aug 20, 2023 07:51 PM Reporting Lab: [address] [address] Performing Lab: [address] [address] CHOLESTEROL 130 mg/dL TRIGLYCERIDE 120 mg/dL 0-150 LDL calculated 54 mg/dL 0-129 CHOL/HDL 2.5 HDL CHOLESTEROL 52 mg/dL 40-60 Aug 23, 2023 11:19 AM [facility] LIVER FUNCTION Specimen Type: SERUM No comment entered. Ordering Provider: SOFI MANCERA Report Released Date/Time: Aug 20, 2023 07:51 PM Reporting Lab: [address] [address] Performing Lab: [address] [address] PROTEIN,TOTAL 6.3 g/dL 6.0-8.3 ALBUMIN 3.6 g/dL 3.5-5.0 ALKALINE PHOSPHATASE 66 U/L 40-150 AST 14 U/L 5-34 ALT 14 U/L BILIRUBIN, TOTAL 0.6 mg/dL 0.2-1.2 Aug 23, 2023 11:19 AM [facility] HEMOGLOBIN A1C PANEL Specimen Type: BLOOD [...] 20, 2023 07:51 PM Reporting Lab: [address] [address] Performing Lab: [address] [address] HEMOGLOBIN A1C 6.3 H 4.0-5.6 Aug 23, 2023 11:19 AM [facility] MICROALBUMIN CREATININE RATIO PANEL Specimen Type: URINE No comment entered. Ordering Provider: SOFI MANCERA Report Released Date/Time: Aug 20, 2023 07:51 PM Reporting Lab: [address] [address] Performing Lab: [address] [address] MICROALBUMIN/C REATININE RATIO canc mg/g 0-29.9 MICROALBUMIN,Q UANTITATIVE < 0.5 mg/dL RR UNAVAIL CREATININE URINE 108.02 mg/dL Aug 23, 2023 11:19 AM [facility] URIC ACID Specimen Type: SERUM No comment entered. Ordering Provider: SOFI MANCERA Report Released Date/Time: Aug 20, 2023 07:51 PM Reporting Lab: [address] [address] Performing Lab: [address] [address] URIC ACID 3.0 mg/dL L 3.5-7.2 Aug 23, 2023 11:19 AM [facility] CBC AND DIFF (AUTO) Specimen Type: BLOOD No comment entered. Ordering Provider: SOFI MANCERA Report Released Date/Time: Aug 20, 2023 07:51 PM Reporting Lab: [address] [address] Performing Lab: [address] [address] WBC 7.43 10*3/uL 4.50-11.00 RBC 4.21 10*6/uL L 4.23-5.66 HGB 13.6 g/dL 12.8-17 HCT 40.0 39.2-50.4 MCV 95.0 fL 82-99 MCHC 34.0 g/dL 30.8-35.1 PLT 165 10*3/uL 140-360 RDW-CV 14.3 12.0-16.0 [place], Abs 0.72 10*3/uL 0.30-1.10 MCH 32.3 pg [...] 10*3/uL 0.00-0.06 Aug 23, 2023 11:19 AM [facility] URINALYSIS CLEAN CATCH Specimen Type: URINE Comment: If Glucose = >500 and Ketones are positive, please alert the Physician. Ordering Provider: SOFI MANCERA Report Released Date/Time: Aug 20, 2023 07:51 PM Reporting Lab: [facility] [address] [facility] [address] Performing Lab: [address] [address] UA COLOR Light-Yellow Yellow UA APPEARANCE Clear [...] and tobacco- related health factors from the [place] facility where the Encounter took place. Current Smoking Status This section includes the most current smoking, or tobacco-related health factor, from the [place] facility where the Encounter took place. Date/Time Current Smoking Status Comment María Elena armijo Apr 26, 2023 10:00 AM [place] FORMER USER [facility] Tobacco Use History This section includes a history of the smoking, or tobacco-related health factors, that were collected on or before the date of the Encounter. The data comes from the [place] facility where the Encounter took place. Date/Time Smoking Status/Tobacco Use Comment F acility Apr 26, 2023 10:00 AM [place] QUIT 15 YRS [place] MORE [facility] Mar 30, 2022 11:00 AM [place]-TOBACCO FORMER USER [facility] Mar 30, 2022 11:00 AM VA-TOBACCO QUIT 15 YRS OR MORE [facility] Mar 17, 2021 01:30 PM [place]-TOBACCO FORMER USER [facility] Mar 17, 2021 01:30 PM VA-TOBACCO NEVER USED [facility] [facility] Mar 17, 2021 01:30 PM VA-TOBACCO QUIT 15 YRS [place] MORE [facility] Mar 31, 2020 10:30 AM VA-TOBACCO FORMER USER [place] [facility] Mar 31, 2020 10:30 AM VA-TOBACCO QUIT 15 YRS OR MORE [facility] Nov 23, 2018 12:07 PM VA-TOBACCO FORMER USER [facility] Nov 23, 2018 12:07 PM VA-TOBACCO QUIT 15 YRS [place] MORE [facility] Nov 22, 2017 10:02 AM VA-TOBACCO NEVER USED [place] [facility] Mar 14, 2017 09:31 AM LIFETIME NON-TOBACCO USER [facility] Mar 01, 2016 02:51 PM LIFETIME NON-TOBACCO USER [facility] Feb 10, 2015 09:31 AM QUIT TOBACCO USE > 7 YEARS AGO [place] in 1964 [place] [facility] Encounter Notes: All associated encounter notes This section contains the clinical notes associated to the Encounter. Date/Time Encounter Note(s) Provider Source Aug 22, 2023 12:00 AM NONVA CONSULT: LOCAL TITLE: COMMUNITY CARE-CONSULT RESULT NOTE STANDARD TITLE: NONVA CONSULT DATE OF NOTE: AUG 22, 2023 ENTRY DATE: NOV 23, 2023@16:44:53 AUTHOR: TEJAS GALLEGOS EXP COSIGNER: URGENCY: STATUS: COMPLETED VistA Imaging - Scanned Document SCANNED DOCUMENT SIGNATURE NOT REQUIRED Electronically Filed: 11/23/2023 by: TEJAS MILLARD [facility]
--- OUTSIDE RECORDS SUMMARY | 2024-03-20 14:02 | XMS_ITS ---
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 Date/Time Encounter Type Encounter Description Reason Provider Source Jan 01, 2024 02:30 PM OFFICE O/P EST LOW 20 MIN PRIMARY CARE/MEDICINE ICD-10-CM E11.9 Type 2 diabetes mellitus without complications NERI MANCERA [facility] Encounter Template Text not used by [place] Assessments - Encounter Diagnoses This section includes the primary and secondary diagnoses documented for the Encounter. Date/Time Primary/Secondary Diagnosis Diagnosis Name Provider Source Jan 12, 2024 12:45 PM PRIMARY Type 2 diabetes mellitus without complications NERI MANCERA [place] [facility] [place] [facility] Jan 12, 2024 12:45 PM SECONDARY Dorsalgia, unspecified NERI MANCERA [facility] [place] [facility] Jan 12, 2024 12:45 PM SECONDARY Encounter for immunization NIKKO SHELL Quentin Doll PA CNT [facility] [place] [facility] Plan of Treatment: Future Appointments (+ 6 months) and Future Tests (+/- 45 days) The Plan of Treatment section includes [facility] care activities for the [facility] [place] [facility] This section includes future appointments and future orders which are active, pending or scheduled. Future Appointments This section includes appointments that were scheduled to occur 6 months from the date of the Encounter, up to a maximum of 20 appointments. The data comes from all [place] treatment facilities. Appointment Date/Time Appointment Type Appointme nt Facility Name Jan 08, 2024 03:30 PM AMBULATORY - MEDICINE PA [facility] [place] [facility] Jan 29, 2024 10:30 AM AMBULATORY - MEDICINE PA [facility] [place] [facility] Jan 30, 2024 03:30 PM AMBULATORY - MEDICINE PA [facility] [place] [facility] 2024 02:30 PM AMBULATORY - MEDICINE PA [facility] [place] [facility] Feb 05, 2024 11:00 AM AMBULATORY - MEDICINE PA [facility] [place] [facility] Feb 06, 2024 03:00 PM AMBULATORY - MEDICINE PA [facility] [place] [facility] Feb 09, 2024 02:00 PM AMBULATORY - MEDICINE PA [facility] [place] [facility] Feb 12, 2024 11:00 AM AMBULATORY - MEDICINE [facility] [place] [facility] Feb 15, 2024 01:00 PM AMBULATORY - MEDICINE PA [facility] [place] [facility] Feb 22, 2024 01:00 PM AMBULATORY - MEDICINE [facility] [place] [facility] Feb 29, 2024 09:00 AM AMBULATORY - MEDICINE [facility] [place] [facility] Mar 08, 2024 10:30 AM AMBULATORY - MEDICINE [facility] [place] [facility] Mar 18, 2024 11:00 AM AM[facility]ULATORY [facility] MEDICINE [facility] [place] Mar 25, 2024 10:00 AM AMBULATORY - MEDICINE [facility] Apr 04, 2024 03:00 PM AMBULATORY - MEDICINE [facility] Apr 05, 2024 11:00 AM AMBULATORY - MEDICINE [facility] [place] [facility] Apr 08, 2024 03:30 PM AMBULATORY - MEDICINE [facility] Apr 23, 2024 01:00 PM AMBULATORY - MEDICINE [facility] Apr 30, 2024 10:00 AM AMBULATORY - MEDICINE PA [facility] [place] [facility] May 03, 2024 01:00 PM AMBULATORY - MEDICINE PA [facility] [place] [facility] Lab Results: +/- 30 [...] Range Comment Dec 27, 2023 02:37 PM PA [facility] [place] [facility] VITAMIN D 25-OH (Therapy monitor) Specimen Type: [...] For additional information, please refer to http://education .Fabulyzer/faq/SRX843 (This link is being provided for informational/ educational purposes only.) This test was developed and its analytical performance characteristics have been determined by [facility] [place]. It has not been cleared or approved by the U.S. Food and Drug Administration. This assay has been validated pursuant to the CLIA regulations and is used for clinical purposes. This test was developed and its analytical performance characteristics have been determined by [facility] [place] It has not been cleared or approved by the U.S. Food and Drug Administration. This assay has been validated pursuant to the CLIA regulations and is used for clinical purposes. Test Performed by [facility], [facility], [address] [place] [address] Juan Martinez M.D., Ph.D., Director of Laboratories , CLIA [id number] TEST PERFORMED AT: , Ordering Provider: NERI MANCERA Report Released Date/Time: Dec 24, 2023 08:02 PM Reporting Lab: [address] [address] Performing Lab: [facility] [address] [address] VITAMIN D, 25-OH, TOTAL 44 ng/mL 30-100 VITAMIN D, 25-OH, D3 44 ng/mL VITAMIN D, 25-OH, D2 <4 ng/mL Dec 27, 2023 02:37 PM [facility] TSH Specimen Type: SERUM No comment entered. Ordering Provider: NERI MANCERA Report Released Date/Time: Dec 24, 2023 08:02 PM Reporting Lab: [address] [address] Performing Lab: [address] [address] TSH 0.79 u[IU]/mL 0.35-5.00 Dec 27, 2023 02:37 PM [facility] LIPID PANEL FASTING Specimen Type: SERUM No comment entered. Ordering Provider: NERI MANCERA Report Released Date/Time: Dec 24, 2023 08:02 PM Reporting Lab: [address] [address] Performing Lab: [facility] [address] [facility] [address] CHOLESTEROL 129 mg/dL TRIGLYCERIDE 168 mg/dL H 0-150 LDL calculated 54 mg/dL 0-129 CHOL/HDL 3.1 HDL CHOLESTEROL 41 mg/dL 40-60 Dec 27, 2023 02:37 PM [facility] LIVER FUNCTION Specimen Type: SERUM No comment entered. Ordering Provider: NERI MANCERA Report Released Date/Time: Dec 24, 2023 08:02 PM Reporting Lab: [facility] [address] [facility] [address] Performing Lab: [address] [address] PROTEIN,TOTAL 6.5 g/dL 6.0-8.3 ALBUMIN 3.4 g/dL L 3.5-5.0 ALKALINE PHOSPHATASE 74 U/L 40-150 AST 18 U/L 5-34 ALT 16 U/L BILIRUBIN, TOTAL 0.5 mg/dL 0.2-1.2 Dec 27, 2023 02:37 PM [facility] BASIC METABOLIC PANEL (fasting) Specimen Type: SERUM No comment entered. Ordering Provider: NERI MANCERA Report Released Date/Time: Dec 24, 2023 08:02 PM Reporting Lab: [address] [address] Performing Lab: [address] [address] UREA NITROGEN 20 mg/dL 7-25 GLUCOSE 110 mg/dL H 65-100 SODIUM 141 mmol/L 135-145 POTASSIUM 4.4 mmol/L 3.5-5.0 CHLORIDE 111 mmol/L H 100-110 CO2 20 meq/L 20-30 CREATININE, Serum 1.98 mg/dL H 0.50-1.40 eGFR(CKD-EPI 2020) 32 mL/min L >60 Dec 27, 2023 02:37 PM [facility] HEMOGLOBIN A1C PANEL Specimen Type: BLOOD Comment: Values obtained from A1C measurements can vary. For atypical A1C assays, a reported value of 7.0 could actually be between 6.72 and 7.28 if measured by a reference method. A reported value of 9.0 could actually be between 8.73 and 9.27. Ref: http://www.ngsp. org/CAPdata.asp Ordering Provider: NERI MANCERA Report Released Date/Time: Dec 24, 2023 08:02 PM Reporting Lab: [facility] [address] [facility] [address] Performing Lab: [facility] [address] HEMOGLOBIN A1C 5.9 H 4.0-5.6 Dec 27, 2023 02:37 PM [facility] URIC ACID Specimen Type: SERUM No comment entered. Ordering Provider: NERI MANCERA Report Released Date/Time: Dec 24, 2023 08:02 PM Reporting Lab: [facility] [address] [facility] [address] Performing Lab: [address] [address] URIC ACID 2.8 mg/dL L 3.5-7.2 Dec 27, 2023 02:37 PM [facility] MICROALBUMIN CREATININE RATIO PANEL Specimen Type: URINE No comment entered. Ordering Provider: NERI MANCERA Report Released Date/Time: Dec 24, 2023 08:02 PM Reporting Lab: [facility] [address] [facility] [address] Performing Lab: [address] [address] MICROALBUMIN/ CREATININE RATIO 101.5 mg/g H 0-29.9 MICROALBUMIN, QUANTITATIVE 14.7 mg/dL RR UNAVAIL CREATININE URINE 144.88 mg/dL Dec 27, 2023 02:37 PM [facility] URINALYSIS CLEAN CATCH Specimen Type: URINE Comment: If Glucose = >500 and Ketones are positive, please alert the Physician. Ordering Provider: NERI MANCERA Report Released Date/Time: Dec 24, 2023 08:02 PM Reporting Lab: [address] [address] Performing Lab: [facility] [address] [facility] [address] UA COLOR Yellow Yellow UA APPEARANCE Clear Clear UA GLUCOSE Normal mg/dL Negative UA KETONES NEGATIVE mg/dL Negative UA BLOOD NEGATIVE mg/dL Negative UA PROTEIN 30 mg/dL Negative UA NITRITE NEGATIVE mg/dL Negative UA BILIRUBIN NEGATIVE mg/dL Negative UA SPECIFIC GRAVITY 1.019 1.016-1.02 2 UA pH 6.0 5.0-9.0 UA UROBILINOGEN 2 mg/dL <2.0 UA LEUKOCYTE NEGATIVE Negative Dec 27, 2023 02:37 PM [facility] MICROSCOPIC AUTOMATED, URINE Specimen Type: URINE Comment: If Glucose = >500 and Ketones are positive, please alert the Physician. Ordering Provider: NERI MANCERA Report Released Date/Time: Dec 24, 2023 08:02 PM Reporting Lab: [address] [address] Performing Lab: [address] [address] UA WBC 0-5 /[HPF] 0-5 UA MUCUS FEW /[LPF] Trace UA RBC 3-5 /[HPF] 0-3 Dec 27, 2023 02:37 PM [facility] CBC AND DIFF (AUTO) Specimen Type: BLOOD No comment entered. Ordering Provider: NERI MANCERA Report Released Date/Time: Dec 24, 2023 08:02 PM Reporting Lab: [address] [address] Performing Lab: [address] [address] WBC 9.67 10*3/uL 4.50-11.00 RBC 4.33 10*6/uL [...] 0.0 0.0-0.0 NRBC, ABS 0.00 10*3/uL 0.00-0.00 Vital Signs: All taken on the encounter date This section contains inpatient and outpatient Vital Signs collected on the date of the Encounter. Date/Time Temperature Pulse Blood Pressure Respiratory Rate SP02 Pain Height Weight Body Mass Index Source Jan 01, 2024 03:03 PM 137/83 [facility] Jan 01, 2024 02:33 PM 97.9 75 150/70 16 96 1 68 214.7 33 [facility] Immunizations: All administered on the encounter date This section contains immunizations associated to the Encounter. Immunization Series Date Issued Reaction Comments COVID-19 (MODERNA), MRNA, LN P-S, PF, 50 MCG/0.5 ML (AGES 12+ YEARS) 7 Jan 01, 2024 INFLUENZA, HIGH-DOSE, TRIVALENT, PF Dec 31 Social History: Smoking Status (Most current) and [...] Encounter took place. Date/Time Current Smoking Status Panda armijo Apr 26, 2023 10:00 AM PA-TOBACCO QUIT 15 YRS OR MORE [facility] [place] [facility] Tobacco Use History This section includes a history of the smoking, or tobacco-related health factors, that were collected on or before the date of the Encounter. The data comes from the [place] facility where the Encounter took place. Date/Time Smoking Status/Tobacco Use Comment F acility Apr 26, 2023 10:00 AM VA-TOBACCO QUIT 15 YRS OR MORE [place] [facility] [place] [facility] Mar 30, 2022 11:00 AM VA-TOBACCO FORMER USER [facility] [place] [facility] Mar 30, 2022 11:00 AM VA-TOBACCO QUIT 15 YRS OR MORE [facility] [place] [facility] Mar 17, 2021 01:30 PM VA-TOBACCO FORMER USER [facility] [place] [facility] Mar 17, 2021 01:30 PM VA-TOBACCO NEVER USED PA [facility] [place] [facility] Mar 17, 2021 01:30 PM VA-TOBACCO QUIT 15 YRS OR MORE [facility] [place] [facility] Mar 31, 2020 10:30 AM VA-TOBACCO FORMER USER [facility] [place] [facility] Mar 31, 2020 10:30 AM VA-TOBACCO QUIT 15 YRS OR MORE [facility] [place] [facility] Nov 23, 2018 12:07 PM VA-TOBACCO FORMER USER [facility] [place] [facility] Nov 23, 2018 12:07 PM VA-TOBACCO QUIT 15 YRS OR MORE [facility] [place] [facility] Nov 22, 2017 10:02 AM VA-TOBACCO NEVER USED [facility] [place] [facility] Mar 14, 2017 09:31 AM LIFETIME NON-TOBACCO USER [facility] [place] [facility] Mar 01, 2016 02:51 PM LIFETIME NON-TOBACCO USER [facility] [place] [facility] Feb 10, 2015 09:31 AM QUIT TOBACCO USE > 7 YEARS AGO quit in 1963 [place] [facility] [place] [facility] Encounter Notes: All associated encounter notes This section contains the clinical notes associated to the Encounter. Date/Time Encounter Note(s) Provider Source Jan 01, 2024 03:03 PM PHYSICIAN NOTE: LOCAL TITLE: MD NOTE STANDARD TITLE: PHYSICIAN NOTE DATE OF NOTE: JAN 01, 2024@15:03 ENTRY DATE: JAN 01, 2024@15:03:27 AUTHOR: NERI MANCERA EXP COSIGNER: URGENCY: STATUS: COMPLETED Patient Name: JACQUELYN BROWN VITALS: Patient temperature: 97.9 F [36.6 C] (01/01/2024 14:33) Blood pressure: 137/83 (01/01/2024 15:03) Patient height: 68 in [172.7 cm] (01/01/2024 14:33) Patient weight: 214.7 lb [97.39 kg] (01/01/2024 14:33) Patient BMI: BMI: 32.7 Patient pulse: 75 (01/01/2024 14:33) Patient respiration: 16 (01/01/2024 14:33) Patient Pulse Oximetry: 96% (01/01/2024 14:33) Pain Ratin (01/01/2024 14:33) Active [facility] Medications: Active Outpatient Medications (including Supplies): Active Outpatient Medications Status 1) ALLOPURINOL 300MG TAB TAKE ONE TABLET BY MOUTH ONCE ACTIVE DAILY FOR GOUT 2) ASCORBIC ACID 500MG TAB TAKE ONE TABLET BY MOUTH ONCE ACTIVE DAILY FOR VITAMIN/NUTRITION SUPPLEMENT 3) CHOLECALCIF 25MCG (D3-1,000UNIT) TAB TAKE ONE TABLET ACTIVE BY MOUTH ONCE DAILY FOR VITAMIN SUPPLEMENTATION 4) FERROUS GLUCONATE 324MG TAB TAKE ONE TABLET BY MOUTH ACTIVE ONCE DAILY TO SUPPLEMENT IRON 5) FLUTICASONE PROP 50MCG 120D NASAL INHL INSTILL 2 ACTIVE SPRAYS INTO EACH NOSTRIL ONCE DAILY NEEDED FOR NASAL IRRITATION/INFLAMMATION 6) INSULIN,GLARGINE-YFGN 100UNIT/ML PEN 3ML INJECT 7 ACTIVE UNITS SUBCUTANEOUSLY ONCE DAILY 7) LANCET,SOFTCLIX USE 1 LANCET DIRECTED FOUR TIMES A ACTIVE DAY TO TEST BLOOD SUGAR 8) MULTIVIT/OPHTH AREDS2/LUTE/ZEAX CAP/TAB TAKE 1 ACTIVE CAPSULE BY MOUTH TWICE DAILY IN THE MORNING AND EVENING, WITH FOOD 9) NEEDLE,PEN 31G,5MM USE 1 NEEDLE SUBCUTANEOUSLY ONCE ACTIVE DAILY FOR USE WITH PEN DEVICE 10) OMEPRAZOLE 20MG EC CAP TAKE ONE CAPSULE BY MOUTH ACTIVE EVERY DAY FOR STOMACH ACID 11) RIVAROXABAN 15MG TAB TAKE ONE TABLET BY MOUTH ONCE ACTIVE DAILY WITH DINNER 12) ROSUVASTATIN CA 20MG TAB TAKE ONE AND ONE-HALF ACTIVE (S) TABLETS BY MOUTH AT BEDTIME FOR CHOLESTEROL 13) SEMAGLUTIDE 1MG/0.75ML INJ PEN 3ML INJECT 1MG ACTIVE SUBCUTANEOUSLY ONCE A WEEK FOR TYPE 2 DIABETES MELLITUS 14) TAMSULOSIN HCL 0.4MG CAP TAKE TWO CAPSULES BY MOUTH ACTIVE AT BEDTIME Active Non-VA Medications Status 1) Non-VA METOPROLOL SUCCINATE 25MG SA TAB 25MG BY MOUTH ACTIVE EVERY DAY 15 Total Medications Remote Medications: No Active Remote Medications for this patient log hooker note Chief complaint: Diabetes mellitus History of present illness Patient is presently on Ozempic which he feels positively about. Recently decreased insulin from 10 to 7 units daily glargine. Blood sugars at home are running satisfactorily. He is cut out his evening snacks. Voluntary weight loss 10 pounds in the past year. Review of systems No chest pain or dyspnea No abdominal pain No trouble urinating No fever or chills no cough physical examination Coronary no murmur Lungs clear carotid no bruit No peripheral edema MICROALB/CR RATIO: 101.5 H MICROALBUMIN URINE: 14.7 CREATININE URINE: 144.88 WBC/HPF: 0-5 RBC/HPF: 3-5 MUCUS: FEW Color, Urine (AX 4280): Yellow Appearance, Urine (AX 4280): Clear Glucose, Urine (AX 4280): Normal Ketones, Urine (AX 4280): NEGATIVE Blood, Urine (AX 4280): NEGATIVE Protein, Urine (AX 4280): 30 Nitrite, Urine (AX 4280): NEGATIVE Bilirubin, Urine (AX 4280): NEGATIVE Specific [place], (AX 4280): 1.019 pH, Urine (AD1823): 6.0 Urobilinogen, Urine (AX 4280): 2 Leukocyte Esterase, (AX 4280): NEGATIVE TSH (Access): 0.79 VITAMIN D, 25-HYDROXY: 44 VITAMIN D, 25-OH, D3: 44 VITAMIN D, 25-OH, D2: <4 GLUCOSE: 110 H UREA NITROGEN: 20 SODIUM: 141 POTASSIUM: 4.4 CHLORIDE: 111 H CO2: 20 URIC ACID: 2.8 L CHOLESTEROL: 129 PROTEIN,TOTAL: 6.5 ALBUMIN: 3.4 L ALKALINE PHOSPHATASE: 74 SGOT: 18 SGPT: 16 TRIGLYCERIDE: 168 H LDL CHOL: 54 CHOL/HDL RATIO: 3.1 HDL: 41 BILIRUBIN,TOT.: 0.5 CREATININE-EGFR: 1.98 H eGFR CKD-EPI 2020: 32 L HGB A1C (WR): 5.9 H WBC: 9.67 RBC: 4.33 HGB: 13.8 HCT: 40.4 MCV: 93.3 MCHC: 34.2 RDW: 13.9 PLT: 218 MCH: 31.9 Neut %: 71.9 Lymph %: 14.1 Dane %: 6.7 Eos %: 6.8 Baso %: 0.3 Neut, Abs: 6.95 Lymph, Abs: 1.36 Dane, Abs: 0.65 Eos, Abs: 0.66 H Baso, Abs: 0.03 Immature Granulocytes %: 0.2 Immature Granulocytes, Abs: 0.02 NRBC%: 0.0 NRBC#: 0.00 I discussed above test results with patient Assessment and plan: 1. Diabetes mellitus: hemoglobin A1c continues to improve with weight loss and Ozempic Plan: Continue diabetes pharmacology clinic 2. Back pain: Patient says improvement since starting acupuncture plan continue above Follow-up 4 months clinic visit and lab Medication Reconciliation: Outpatient: Has the patient been taking medications as documented in the EMLR? YES: The patient has been taking medications as documented in the EMLR. Essential Medication List for Review used to complete this medication reconciliation. INCLUDED IN THIS LIST: Alphabetical list of active outpatient prescriptions dispensed from this PA (local) and dispensed from another PA or DoD facility (remote) as well as [...] with a VA or non-VA provider. /cas/ Neri Mancera MD Staff Physician Signed: 01/01/2024 15:07 NERI MANCERA [facility] [place] [facility] Jan 01, 2024 02:37 PM PREVENTIVE MEDICINE NURSING NOTE: LOCAL TITLE: CLINICAL REMINDERS/NURSING STANDARD TITLE: PREVENTIVE MEDICINE NURSING NOTE DATE OF NOTE: JAN 01, 2024@14:37 ENTRY DATE: JAN 01, 2024@14:37:20 AUTHOR: KIMBERLEY SHELL COSIGNER: URGENCY: STATUS: COMPLETED CLINICAL REMINDERS/NURSING Has ADDENDA Alcohol Use Screen (AUDIT-C): Alcohol Screen: SCREEN FOR ALCOHOL (AUDIT-C) An alcohol screening test (AUDIT-C) was negative (score=1). 1. How often did you have a drink containing alcohol in the past year? Consider a drink to be a 12 ounce can or bottle of regular beer, 8 ounces of malt liquor, a 5 ounce glass of table wine, or a 1.5 ounce shot of liquor (like scotch, gin, or vodka). Monthly or less 2. How many drinks containing alcohol did you have on a typical day when you were drinking in the past year? One or two drinks 3. How often did you have six or more drinks on one occasion in the past year? Never Depression Screening: Perform PHQ-2 A PHQ-2 screen was performed. The score was 0 which is a negative screen for depression. Over the past two weeks, how often have you been bothered by the following problems? 1. Little interest or pleasure in doing things Not at all 2. Feeling down, depressed, or hopeless Not at all Advance Directive Screen MH AD: Patient does not have a completed advance directive on file at any facility, VA or outside. S/he is not interested in completing one at this time. The patient received education about Advance Directives and written notification of his/her rights. Comment: not at this time (Optional) Whole Health Documentation: What matters the most to you? What motivates you to be healthy? (MAP) Response: try to eat the right foods, force myself excersise, don't want to be burden on anyone /aida SHELL LPN LPN Signed: 01/01/2024 14:42 01/01/2024 ADDENDUM STATUS: COMPLETED Influenza Immunization: Influenza, High-Dose, Trivalent, Preservative Free (Fluzone-Syringe) Administered: INFLUENZA, HIGH-DOSE, TRIVALENT, PF Date Administered: Jan 01, 2024 14:30 Series: Complete Commercial Door Installer: SANOFI PASTEUR Lot: [id number] Exp Date: Sep 09, 2024 NDC: [id number] Admin Route/Site: INTRAMUSCULAR/LEFT DELTOID Dosage: 0.5mL Vaccine Information Statement(s): INFLUENZA(FLU) VACC(INACTIVATED OR RECOMBINANT)VIS Oct 16, 2020 ([place]) Order By: Policy Administered By: Kimberley Shell The Influenza Vaccine Information Statement (VIS) was reviewed with the patient/caregiver which lists the benefits and risks of the vaccine and the risks of not receiving the Influenza vaccine. The patient/caregiver denied any prior severe reaction to this vaccine or its components or a severe allergic reaction, such as anaphylaxis, to any vaccine or any injectable therapy. The patient/caregiver gave verbal consent to receive the vaccine. COVID-19 Immunization: Moderna Monovalent (Spikevax) Administered: COVID-19 (MODERNA), MRNA, LNP-S, PF, 50 MCG/0.5 ML (AGES 12+ YEARS) Date Administered: Jan 01, 2024 14:30 Series: Series 7 Commercial Door Installer: [employer] Lot: [id number] Exp Date: Aug 17, 2024 NDC: [id number] Admin Route/Site: INTRAMUSCULAR/RIGHT DELTOID Dosage: 0.5mL Vaccine Information Statement(s): COVID-19 MRNA VACCINE (12+ YRS) VACCINE VIS Dec 29, 2022 ([place]) Order By: Policy Administered By: Kimberley Shell Vaccine administered without complications. /aida SHELL LPN LPN Signed: 01/01/2024 15:16 KIMBERLEY SHELL [facility]
--- OUTSIDE RECORDS SUMMARY | 2024-03-20 14:02 | XMS_ITS ---
Author Name [facility] Organization [facility] Address [address] [place] [address] Care Team Providers Care Dining Host Name Role Phone SOFI MANCERA Primary Care [...] Relationship to Policy [place] BC[place] MED[place] CHARAN Haque Mar 13, 2015 [id number] VERONICA BROWN RT PATIENT MEDICARE (WNR) MEDICARE (M) PART B Aug 12, 2007 PART B [id number] VERONICA BROWN RT PATIENT MEDICARE (WNR) MEDICARE (M) PART A Jan 12, 2004 PART A [id number] VERONICA BROWN RT PATIENT Selected Encounter This section includes the information on record at [place] for the Encounter. Date/Time Encounter Type Encounter Description Reason Provider Source Dec 18, 2023 09:30 AM MTMS BY PHARM EST 15 MIN TELEPHONE PRIMARY CARE ICD-10-CM E11.9 Type 2 diabetes mellitus without complications RENETTA FRENCH Encounter Template Text not used by [place] Assessments - Encounter Diagnoses This section includes the primary and secondary diagnoses documented for the Encounter. Date/Time Primary/Secondary Diagnosis Diagnosis Name Provider Source Dec 18, 2023 09:30 AM PRIMARY Type 2 diabetes mellitus without complications RENETTA FRENCH [place] [facility] [place] [facility] Plan of Treatment: Future Appointments (+ 6 months) and Future Tests (+/- 45 days) The Plan of Treatment section includes future care activities for the patient from all [place] treatmentfacilities. This section includes future appointments and future orders which are active, pending or scheduled. Future Appointments This section includes appointments that were scheduled to occur 6 months from the date of the Encounter, up to a maximum of 20 appointments. The data comes from all [place] treatment facilities. Appointment Date/Time Appointment Type Appointme nt Facility Name Dec 27, 2023 02:00 PM AMBULATORY - MEDICINE [place] [facility] [place] [facility] Dec 29, 2023 01:30 PM AMBULATORY - MEDICINE [place] [facility] [place] [facility] Jan 01, 2024 02:30 PM [facility] [place] [facility] Jan 08, 2024 03:30 PM AM[facility]ULAT[facility]INE [facility] [place] [facility] Jan 29, 2024 10:30 AM AM[facility]ULATORY [facility]ICINE [facility] [place] [facility] Jan 30, 2024 03:30 PM [facility]UL[facility]ICINE [facility] [place] [facility] 2024 02:30 PM AM[facility]ULATORY [facility]INE [facility] [place] [facility] Feb 05, 2024 11:00 AM AM[facility]ULATORY [facility]ICINE [facility] [place] [facility] Feb 06, 2024 03:00 PM AM[facility]ULATORY [facility]ICINE [facility] [place] [facility] Feb 09, 2024 02:00 PM AM[facility]ULATORY [facility]INE [facility] [place] [facility] Feb 12, 2024 11:00 AM AM[facility]ULATORY [facility] MEDICINE [facility] [place] [facility] Feb 15, 2024 01:00 PM AM[facility]ULATORY [facility]ICINE [facility] [place] [facility] Feb 22, 2024 01:00 PM AMBULATORY [facility] MEDICINE [facility] [place] [facility] Feb 29, 2024 09:00 AM AMBULATORY - MEDICINE [place] [facility] [place] [facility] Mar 08, 2024 10:30 AM AMBULATORY - MEDICINE [place] [facility] [place] [facility] Mar 18, 2024 11:00 AM [facility] Mar 25, 2024 10:00 AM [facility] Apr 04, 2024 03:00 PM [facility] Apr 05, 2024 11:00 AM [facility] Apr 08, 2024 03:30 PM [facility] Lab Results: +/- 30 days of the encounter This section includes the Chemistry and Hematology Lab Results on record with [place] for the patient. Radiology Reports and Pathology Reports are provided separately, in subsequent sections. Lab Results This section contains the Chemistry/Hematology Results that were resulted 30 days before or 30 daysafter the date of the Encounter. Date/Time Source Result Type Result - Unit Interpretation Reference Range Comment Dec 27, 2023 02:37 PM [facility] VITAMIN D 25-OH (Therapy monitor) Specimen [...] For additional information, please refer to [email or web address].[email or web address] (This link is being provided for informational/ educational purposes only.) This test was developed and its analytical performance characteristics have been determined by [facility] [place], [place]. It has not been cleared or approved by the U.S. Food and Drug Administration. This assay has been validated pursuant to the CLIA regulations and is used for clinical purposes. This test was developed and its analytical performance characteristics have been determined by [facility] [place], [place]. It has not been cleared or approved by the U.S. Food and Drug Administration. This assay has been validated pursuant to the CLIA regulations and is used for clinical purposes. Test Performed by [facility], [facility], [address] [place] [address] Juan Martinez M.D., Ph.D., Director of Laboratories , CLIA [id number] TEST PERFORMED AT: , Ordering Provider: SOFI MANCERA Report Released Date/Time: Dec 24, 2023 08:02 PM Reporting Lab: [address] [address] Performing Lab: [facility] [address] [address] VITAMIN D, 25-OH, TOTAL 44 ng/mL 30-100 VITAMIN D, 25-OH, D3 44 ng/mL VITAMIN D, 25-OH, D2 <4 ng/mL Dec 27, 2023 02:37 PM [facility] TSH Specimen Type: SERUM No comment entered. Ordering Provider: SOFI MANCERA Report Released Date/Time: Dec 24, 2023 08:02 PM Reporting Lab: [address] [address] Performing Lab: [address] [address] TSH 0.79 u[IU]/mL 0.35-5.00 Dec 27, 2023 02:37 PM [facility] LIPID PANEL FASTING Specimen Type: SERUM No comment entered. Ordering Provider: SOFI MANCERA Report Released Date/Time: Dec 24, 2023 08:02 PM Reporting Lab: [address] [address] Performing Lab: [address] [address] CHOLESTEROL 129 mg/dL TRIGLYCERIDE 168 mg/dL H 0-150 LDL calculated 54 mg/dL 0-129 CHOL/HDL 3.1 HDL CHOLESTEROL 41 mg/dL 40-60 Dec 27, 2023 02:37 PM [facility] LIVER FUNCTION Specimen Type: SERUM No comment entered. Ordering Provider: SOFI MANCERA Report Released Date/Time: Dec 24, 2023 08:02 PM Reporting Lab: [address] [address] Performing Lab: [address] [address] PROTEIN,TOTAL 6.5 g/dL 6.0-8.3 ALBUMIN 3.4 g/dL L 3.5-5.0 ALKALINE PHOSPHATASE 74 U/L 40-150 AST 18 U/L 5-34 ALT 16 U/L BILIRUBIN, TOTAL 0.5 mg/dL 0.2-1.2 Dec 27, 2023 02:37 PM [facility] BASIC METABOLIC PANEL (fasting) Specimen Type: SERUM No comment entered. Ordering Provider: SOFI MANCERA Report Released Date/Time: Dec 24, 2023 08:02 PM Reporting Lab: [address] [address] Performing Lab: [address] [address] UREA NITROGEN 20 mg/dL 7-25 GLUCOSE 110 mg/dL H 65-100 SODIUM 141 mmol/L 135-145 POTASSIUM 4.4 mmol/L 3.5-5.0 CHLORIDE 111 mmol/L H 100-110 CO2 20 meq/L 20-30 CREATININE, Serum 1.98 mg/dL H 0.50-1.40 eGFR(CKD-EPI 2020) 32 mL/min L >60 Dec 27, 2023 02:37 PM [facility] HEMOGLOBIN A1C PANEL Specimen [...] Dec 24, 2023 08:02 PM Reporting [facility]: [facility] [address] [address] Per[facility]: [facility] [address] [address] HEMOGLOBIN A1C 5.9 H 4.0-5.6 Dec 27, 2023 02:37 PM [facility] URIC ACID Specimen Type: SERUM No comment entered. Ordering Provider: SOFI MANCERA Report Released Date/Time: Dec 24, 2023 08:02 PM Reporting Lab: [facility] [address] [address] Performing Lab: [facility] [address] [address] URIC ACID 2.8 mg/dL L 3.5-7.2 Dec 27, 2023 02:37 PM [facility] MICROALBUMIN CREATININE RATIO PANEL Specimen Type: URINE No comment entered. Ordering Provider: SOFI MANCERA Report Released Date/Time: Dec 24, 2023 08:02 PM Reporting Lab: [facility] [address] [address] Performing Lab: [facility] [address] [address] MICROALBUMIN/ CREATININE RATIO 101.5 mg/g H 0-29.9 MICROALBUMIN, QUANTITATIVE 14.7 mg/dL RR UNAVAIL CREATININE URINE 144.88 mg/dL Dec 27, 2023 02:37 PM [facility] MICROSCOPIC AUTOMATED, URINE Specimen Type: URINE Comment: If Glucose = >500 and Ketones are positive, please alert the Physician. Ordering Provider: SOFI MANCERA Report Released Date/Time: Dec 24, 2023 08:02 PM Reporting Lab: [facility] [address] [address] Performing Lab: [facility] [address] [address] UA WBC 0-5 /[HPF] 0-5 UA MUCUS FEW /[LPF] Trace UA RBC 3-5 /[HPF] 0-3 Dec 27, 2023 02:37 PM [facility] URINALYSIS CLEAN CATCH Specimen Type: URINE Comment: If Glucose = >500 and Ketones are positive, please alert the Physician. Ordering Provider: SOFI MANCERA Report Released Date/Time: Dec 24, 2023 08:02 PM Reporting Lab: [facility] [address] [address] Performing Lab: [address] [address] UA COLOR Yellow Yellow UA APPEARANCE Clear Clear UA GLUCOSE Normal mg/dL Negative UA KETONES NEGATIVE mg/dL Negative UA BLOOD NEGATIVE mg/dL Negative UA PROTEIN 30 mg/dL Negative UA NITRITE NEGATIVE mg/dL Negative UA BILIRUBIN NEGATIVE mg/dL Negative UA SPECIFIC GRAVITY 1.019 1.016-1.02 2 UA pH 6.0 5.0-9.0 UA UROBILINOGEN 2 mg/dL <2.0 UA LEUKOCYTE NEGATIVE Negative Dec 27, 2023 02:37 PM [facility] CBC AND DIFF (AUTO) Specimen Type: BLOOD No comment entered. Ordering Provider: SOFI MANCERA Report Released Date/Time: Dec 24, 2023 08:02 PM Reporting Lab: [address] [address] Performing Lab: [address] [address] WBC 9.67 10*3/uL 4.50-11.00 RBC 4.33 10*6/uL [...] 0.0 0.0-0.0 NRBC, ABS 0.00 10*3/uL 0.00-0.00 Social History: Smoking Status (Most current) and [...] VA-TOBACCO FORMER USER [place] [facility] [place] [facility] Tobacco Use History This section includes a history of the smoking, or tobacco-related health factors, that were collected on or before the date of the Encounter. The data comes from the [place] facility where the Encounter took place. Date/Time Smoking Status/Tobacco Use Comment F acshahbaz Apr 26, 2023 10:00 AM VA-TOBACCO QUIT 15 YRS OR MORE [facility] [place] [facility] Mar 30, 2022 11:00 AM VA-TOBACCO FORMER USER [facility] [place] [facility] Mar 30, 2022 11:00 AM VA-TOBACCO QUIT 15 YRS OR MORE [facility] [place] [facility] Mar 17, 2021 01:30 PM VA-TOBACCO FORMER USER [facility] [place] [facility] Mar 17, 2021 01:30 PM VA-TOBACCO NEVER USED [facility] [place] [facility] Mar 17, 2021 01:30 PM VA-TOBACCO QUIT 15 YRS OR MORE [facility] [place] [facility] Mar 31, 2020 10:30 AM VA-TOBACCO FORMER USER [facility] [place] [facility] Mar 31, 2020 10:30 AM VA-TOBACCO QUIT 15 YRS OR MORE [facility] [place] [facility] Nov 23, 2018 12:07 PM VA-TOBACCO FORMER USER [facility] [place] [facility] Nov 23, 2018 12:07 PM VA-TOBACCO QUIT 15 YRS OR MORE [facility] [place] [facility] Nov 22, 2017 10:02 AM VA-TOBACCO NEVER USED [facility] [place] [facility] Mar 14, 2017 09:31 AM LIFETIME NON-TOBACCO USER [facility] [place] [facility] Mar 01, 2016 02:51 PM LIFETIME NON-TOBACCO USER [facility] [place] [facility] Feb 10, 2015 09:31 AM QUIT TOBACCO USE > 7 YEARS AGO quit in 1964 [place] [facility] [place] [facility] Encounter Notes: All associated encounter notes This section contains the clinical notes associated to the Encounter. Date/Time Encounter Note(s) Provider Source Dec 18, 2023 09:58 AM ADDENDUM: LOCAL TITLE: Addendum STANDARD TITLE: ADDENDUM DATE OF NOTE: DEC 18, 2023@09:58 ENTRY DATE: DEC 18, 2023@09:58:01 AUTHOR: RENETTA FRENCH EXP COSIGNER: URGENCY: STATUS: COMPLETED AMSA, please schedule appointment for: - Cwm/No/Tele/Pharm/Pact 2 Please schedule for 01/30/24 @1530 Thank you! /aida FRENCH PHARMD, BCPS CLINICAL PHARMACIST PRACTITIONER Signed: 12/18/2023 09:58 Receipt Acknowledged By: 12/18/2023 10:07 /es/ RENEE MORRIS AMSA --- Original Document --- 12/18/23 TELEPHONE NOTE/PHARMACY: JACQUELYN BROWN, 83 yo WHITE MALE, presents for telephone follow-up for diabetes management. DEC 18, 2023 Known Allergies: METFORMIN, LISINOPRIL, ATORVASTATIN Subjective: referred to pharmacy clinic for diabetes management. At time of last visit, semaglutide and insulin glargine-yfgn were continued. Today pt reports he is doing well. Denies ADRs with current regimen. States constipation has mostly resolved. Denies N/V/D. 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 Getting weekly injections for 5 weeks and notes since second injection, eyes have improved. Reports that he is still working on diet, physical activity is minimal due to pain but pt is easing into it. Reports weight is about the same at 214-215 lbs (7 lb reduction total). Target Goals: A1C: <8%; FB-150 mg/dl Personal [...] was prescribed but then discontinued. SMBG: Date 12/12/23 126 169 12/13/23 125 135 12/14/23 123 159 12/15/23 113 203 12/16/23 113 132 12/17/23 110 172 12/18/23 112 Average 117 162 Date 11/20/23 115 11/19/23 119 117 11/18/23 [...] (A1C 6.3% 08/23/23). Fasting and post prandial at goal. Will increase semaglutide to help reduce insulin burden, reduce weight, and help with other comorbid conditions. Pt will start new pen on 01/06/24 once current pen is complete. Pt is also requesting insulin glargine-yfgn refill. CARDIOVASCULAR: For patients 60 years and over with Diabetes, recommend a goal of <140/90, with added benefit of reducing SBP closer to 130. 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 RTC: 01/30/24 @1530 (Tele)([facility]) Time Spent: 15 minutes PBM PharmD Pharmacotherapy Rem V12: PHARMACIST INTERVENTIONS: TYPE 2 DIABETES MELLITUS Medication Intervention(s) Adjust dose or frequency of current medication due to other reason Medication reconciliation (changes to active VA and non-VA medication lists to reconcile differences) No changes to medication lists made (medication review completed, no discrepancies identified) /cas/ RENETTA FRENCH PHARMD, BCPS CLINICAL PHARMACIST PRACTITIONER Signed: 12/18/2023 09:57 12/18/2023 ADDENDUM STATUS: COMPLETED AMSA scheduled RTC per request. /cas/ RENEE MORRIS AMSA Signed: 12/18/2023 10:07 RENETTA FRENCH [facility] [place] [facility] Dec 18, 2023 08:47 AM PHARMACY TELEPHONE ENCOUNTER NOTE: LOCAL TITLE: TELEPHONE NOTE/PHARMACY STANDARD TITLE: PHARMACY TELEPHONE ENCOUNTER NOTE DATE OF NOTE: DEC 18, 2023@08:47 ENTRY DATE: DEC 18, 2023@08:47:20 AUTHOR: RENETTA FRENCH EXP COSIGNER: URGENCY: STATUS: COMPLETED TELEPHONE NOTE/PHARMACY Has ADDENDA JACQUELYN BROWN, 83 yo WHITE MALE, presents for telephone follow-up for diabetes management. DEC 18, 2023 Known Allergies: METFORMIN, LISINOPRIL, ATORVASTATIN Subjective: referred to pharmacy clinic for diabetes management. At time of last visit, semaglutide and insulin glargine-yfgn were continued. Today pt reports he is doing well. Denies ADRs with current regimen. States constipation has mostly resolved. Denies N/V/D. 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 Getting weekly injections for 5 weeks and notes since second injection, eyes have improved. Reports that he is still working on diet, physical activity is minimal due to pain but pt is easing into it. Reports weight is about the same at 214-215 lbs (7 lb reduction total). Target Goals: A1C: <8%; FB-150 mg/dl Personal [...] was prescribed but then discontinued. SMBG: Date 12/12/23 126 169 12/13/23 125 135 12/14/23 123 159 12/15/23 113 203 12/16/23 113 132 12/17/23 110 172 12/18/23 112 Average 117 162 Date 11/20/23 115 11/19/23 119 117 11/18/23 [...] (A1C 6.3% 08/23/23). Fasting and post prandial at goal. Will increase semaglutide to help reduce insulin burden, reduce weight, and help with other comorbid conditions. Pt will start new pen on 01/06/24 once current pen is complete. Pt is also requesting insulin glargine-yfgn refill. CARDIOVASCULAR: For patients 60 years and over with Diabetes, recommend a goal of <140/90, with added benefit of reducing SBP closer to 130. 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 The [place] was provided the opportunity express questions or concerns, and the plan was adjusted as needed to address these concerns. -Reviewed with any new medications, changes to the medication list, education, and plan from today's visit. Patient (and/or caregiver) verbalized understanding of the plan, including possible known risks and benefits, and had no additional questions. RTC: 01/30/24 @1530 (Tele)([facility]) Time Spent: 15 minutes PBM PharmD Pharmacotherapy Rem V12: PHARMACIST INTERVENTIONS: TYPE 2 DIABETES MELLITUS Medication Intervention(s) Adjust dose or frequency of current medication due to other reason Medication reconciliation (changes to active VA and non-VA medication lists to reconcile differences) No changes to medication lists made (medication review completed, no discrepancies identified) /cas/ RENETTA FRENCH PHARMD, BCPS CLINICAL PHARMACIST PRACTITIONER Signed: 12/18/2023 09:57 12/18/2023 ADDENDUM STATUS: COMPLETED AMSA, please schedule appointment for: - Cwm/[place]/Tele/Pharm/Pact 2 Please schedule for 01/30/24 @1530 Thank you! /aida FRENCH PHARMD, BCPS CLINICAL PHARMACIST PRACTITIONER Signed: 12/18/2023 09:58 Receipt Acknowledged By: 12/18/2023 10:07 /es/ RENEE MORRIS AMSA 12/18/2023 ADDENDUM STATUS: COMPLETED AMSA scheduled RTC per request. /cas/ RENEE MORRIS AMSA Signed: 12/18/2023 10:07 RENETTA FRENCH [facility]
--- OUTSIDE RECORDS SUMMARY | 2024-03-20 14:02 | XMS_ITS | Encounter Summary ---
Author Name [facility] [place] Organization [facility] [place] Address [address] [place] [address] Care Team Providers Care Deputy Administrator Name Role Phone SOFI MANCERA Primary Care [...] Policy Se[place] BCBS [place] MEDICARE JONELLE DIAZ [facility] Александр Mar 13, 2015 [id number] VERONICA BROWN RT PATIENT MEDICARE (WNR) MEDICARE (M) PART B Aug 12, 2007 PART B [id number] VERONICA BROWN RT PATIENT MEDICARE (WNR) MEDICARE (M) PART A Jan 12, 2004 PART A [id number] VERONICA BROWN RT PATIENT Selected Encounter This section includes the information on record at [place] for the Encounter. Date/Time Encounter Type Encounter Description Reason Provider Source Dec 29, 2023 01:30 PM INFRARED THERAPY CIH TREATMENT ICD-10-CM M54.9 Dorsalgia, unspecified BRICE WALSH IHE Encounter Template Text not used by [facility] Assessments - Encounter Diagnoses This section includes the primary and secondary diagnoses documented for the Encounter. Date/Time Primary/Secondary Diagnosis Diagnosis Name Provider Source Jan 12, 2024 12:40 PM PRIMARY Dorsalgia, unspecified BRICE WALSH [place] [facility] [place] [facility] Jan 12, 2024 12:40 PM SECONDARY Low back pain, unspecified BRICE WALSH [place] [facility] [place] [facility] Jan 12, 2024 12:40 PM SECONDARY Pain in right hip BRICE WALSH [place] [facility] [place] [facility] Plan of Treatment: Future Appointments (+ 6 months) and Future Tests (+/- 45 days) The Plan of Treatment section includes future care activities for the patient from [facility] [place] [facility] This section includes future appointments and future orders which are active, pending or scheduled. Future Appointments This section includes appointments that were scheduled to occur 6 months from the date of the Encounter, up to a maximum of 20 appointments. The data comes from all [place] treatment facilities. Appointment Date/Time Appointment Type Appointme nt Facility Name Jan 01, 2024 02:30 PM AM[place]ULATORY [place]ICINE [place] [facility] [place] [facility] Jan 08, 2024 03:30 PM AMBULATORY [place]IC[place] [facility] [place] [facility] Jan 29, 2024 10:30 AM AM[place]ULATORY [place]INE [place] [facility] [place] [facility] Jan 30, 2024 03:30 PM AM[place]ULATORY [place]INE [place] [facility] [place] [facility] 2024 02:30 PM AM[place]ULATORY [place]INE [place] [facility] [place] [facility] Feb 05, 2024 11:00 AM AM[place]ULATORY [place]INE [place] [facility] [place] [facility] Feb 06, 2024 03:00 PM AM[place]ULATORY [place]INE [place] [facility] [place] [facility] Feb 09, 2024 02:00 PM AM[place]ULATORY [place] [facility] [place] [facility] Feb 12, 2024 11:00 AM AM[place]UL[place]ORY [place]INE [place] [facility] [place] [facility] Feb 15, 2024 01:00 PM [place] [facility] [place] [facility] Feb 22, 2024 01:00 PM AM[place]ULATORY [place]INE [place] [facility] [place] [facility] Feb 29, 2024 09:00 AM AM[place]ULATORY [place] [facility] [place] [facility] Mar 08, 2024 10:30 AM [place] [facility] [place] [facility] Mar 18, 2024 11:00 AM [facility] [place] [facility] Mar 25, 2024 10:00 AM [place] [facility] [place] [facility] Apr 04, 2024 03:00 PM AMBULATORY [place]ICINE [place] [facility] [place] [facility] Apr 05, 2024 11:00 AM AMBULATORY [place]ICINE [place] [facility] [place] [facility] Apr 08, 2024 03:30 PM AM[place]ULATORY [place]INE [place] [facility] [place] [facility] Apr 23, 2024 01:00 PM AMBULATORY [place]ICINE [place] [facility] [place] [facility] Apr 30, 2024 10:00 AM AMBULATORY - [place]ICINE [place] [facility] [place] [facility] Lab Results: +/- 30 days of the encounter This section includes the Chemistry and Hematology Lab Results on record with [place] for the patient. Radiology Reports and Pathology Reports are provided separately, in subsequent sections. Lab Results This section contains the Chemistry/Hematology Results that were resulted 30 days before or 30 daysafter the date of the Encounter. Date/Time Source Result Type Result - Unit Interpretation Reference Range Comment Dec 27, 2023 02:37 PM [place] [facility] [place] [facility] VITAMIN D 25-OH (Therapy monitor) Specimen Type: [...] For additional information, please refer to http://education .Lending a Helping Hand/faq/VFA278 (This link is being provided for informational/ educational purposes only.) This test was developed and its analytical performance characteristics have been determined by [employer] [place], [place]. It has not been cleared or approved by the U.S. Food and Drug Administration. This assay has been validated pursuant to the CLIA regulations and is used for clinical purposes. This test was developed and its analytical performance characteristics have been determined by [employer] [place], [place]. It has not been cleared or approved by the U.S. Food and Drug Administration. This assay has been validated pursuant to the CLIA regulations and is used for clinical purposes. Test Performed by [facility], [employer] [facility], [address] [place] [address] Juan Martinez M.D., Ph.D., Director of Laboratories , CLIA [id number] TEST PERFORMED AT: , Ordering Provider: SOFI MANCERA Report Released Date/Time: Dec 24, 2023 08:02 PM Reporting Lab: [address] [address] Performing Lab: [facility] [address] [address] VITAMIN D, 25-OH, TOTAL 44 ng/mL 30-100 VITAMIN D, 25-OH, D3 44 ng/mL VITAMIN D, 25-OH, D2 <4 ng/mL Dec 27, 2023 02:37 PM [facility] TSH Specimen Type: SERUM No comment entered. Ordering Provider: SOFI MANCERA Report Released Date/Time: Dec 24, 2023 08:02 PM Reporting Lab: [address] [address] Performing Lab: [address] [address] TSH 0.79 u[IU]/mL 0.35-5.00 Dec 27, 2023 02:37 PM [facility] LIPID PANEL FASTING Specimen Type: SERUM No comment entered. Ordering Provider: SOFI MANCERA Report Released Date/Time: Dec 24, 2023 08:02 PM Reporting Lab: [address] [address] Performing Lab: [facility] [address] [facility] [address] CHOLESTEROL 129 mg/dL TRIGLYCERIDE 168 mg/dL H 0-150 LDL calculated 54 mg/dL 0-129 CHOL/HDL 3.1 HDL CHOLESTEROL 41 mg/dL 40-60 Dec 27, 2023 02:37 PM [facility] BASIC METABOLIC PANEL (fasting) Specimen Type: SERUM No comment entered. Ordering Provider: SOFI MANCERA Report Released Date/Time: Dec 24, 2023 08:02 PM Reporting Lab: [address] [address] Performing Lab: [address] [address] UREA NITROGEN 20 mg/dL 7-25 GLUCOSE 110 mg/dL H 65-100 SODIUM 141 mmol/L 135-145 POTASSIUM 4.4 mmol/L 3.5-5.0 CHLORIDE 111 mmol/L H 100-110 CO2 20 meq/L 20-30 CREATININE, Serum 1.98 mg/dL H 0.50-1.40 eGFR(CKD-EPI 2020) 32 mL/min L >60 Dec 27, 2023 02:37 PM [facility] LIVER FUNCTION Specimen Type: SERUM No comment entered. Ordering Provider: SOFI MANCERA Report Released Date/Time: Dec 24, 2023 08:02 PM Reporting Lab: [address] [address] Performing Lab: [address] [address] PROTEIN,TOTAL 6.5 g/dL 6.0-8.3 ALBUMIN 3.4 g/dL L 3.5-5.0 ALKALINE PHOSPHATASE 74 U/L 40-150 AST 18 U/L 5-34 ALT 16 U/L BILIRUBIN, TOTAL 0.5 mg/dL 0.2-1.2 Dec 27, 2023 02:37 PM [facility] HEMOGLOBIN A1C PANEL Specimen Type: [...] Dec 24, 2023 08:02 PM Reporting Lab: [facility] [address] [facility] [address] Performing Lab: [address] [address] HEMOGLOBIN A1C 5.9 H 4.0-5.6 Dec 27, 2023 02:37 PM [facility] MICROALBUMIN CREATININE RATIO PANEL Specimen Type: URINE No comment entered. Ordering Provider: SOFI MANCERA Report Released Date/Time: Dec 24, 2023 08:02 PM Reporting Lab: [address] [address] Performing Lab: [address] [address] MICROALBUMIN/ CREATININE RATIO 101.5 mg/g H 0-29.9 MICROALBUMIN, QUANTITATIVE 14.7 mg/dL RR UNAVAIL CREATININE URINE 144.88 mg/dL Dec 27, 2023 02:37 PM [facility] URIC ACID Specimen Type: SERUM No comment entered. Ordering Provider: SOFI MANCERA Report Released Date/Time: Dec 24, 2023 08:02 PM Reporting Lab: [facility] [address] [address] Performing Lab: [address] [address] URIC ACID 2.8 mg/dL L 3.5-7.2 Dec 27, 2023 02:37 PM [facility] MICROSCOPIC AUTOMATED, URINE Specimen Type: URINE Comment: If Glucose = >500 and Ketones are positive, please alert the Physician. Ordering Provider: SOFI MNACERA Report Released Date/Time: Dec 24, 2023 08:02 PM Reporting Lab: [address] [address] Performing Lab: [facility] [address] [facility] [address] UA WBC 0-5 /[HPF] 0-5 UA MUCUS FEW /[LPF] Trace UA RBC 3-5 /[HPF] 0-3 Dec 27, 2023 02:37 PM [facility] URINALYSIS CLEAN CATCH Specimen Type: URINE Comment: If Glucose = >500 and Ketones are positive, please alert the Physician. Ordering Provider: SOFI MANCERA Report Released Date/Time: Dec 24, 2023 08:02 PM Reporting Lab: [facility] [address] [facility] [address] Performing Lab: [address] [address] UA COLOR Yellow Yellow UA APPEARANCE Clear Clear UA GLUCOSE Normal mg/dL Negative UA KETONES NEGATIVE mg/dL Negative UA BLOOD NEGATIVE mg/dL Negative UA PROTEIN 30 mg/dL Negative UA NITRITE NEGATIVE mg/dL Negative UA BILIRUBIN NEGATIVE mg/dL Negative UA SPECIFIC GRAVITY 1.019 1.016-1.02 2 UA pH 6.0 5.0-9.0 UA UROBILINOGEN 2 mg/dL <2.0 UA LEUKOCYTE NEGATIVE Negative Dec 27, 2023 02:37 PM [facility] CBC AND DIFF (AUTO) Specimen Type: BLOOD No comment entered. Ordering Provider: SOFI MANCERA Report Released Date/Time: Dec 24, 2023 08:02 PM Reporting Lab: [facility] [address] [facility] [address] Performing Lab: [facility] [address] [facility] [address] WBC 9.67 10*3/uL 4.50-11.00 RBC 4.33 10*6/uL [...] [place]-TOBACCO FORMER USER [place] [facility] [place] [facility] Tobacco Use History This section includes a history of the smoking, or tobacco-related health factors, that were collected on or before the date of the Encounter. The data comes from the [place] facility where the Encounter took place. Date/Time Smoking Status/Tobacco Use Comment F acshahbaz Apr 26, 2023 10:00 AM [place]-TOBACCO QUIT 15 YRS OR MORE [place] [facility] [place] [facility] Mar 30, 2022 11:00 AM VA-TOBACCO FORMER USER [place] [facility] [place] [facility] Mar 30, 2022 11:00 AM [place]-TOBACCO QUIT 15 YRS OR MORE [place] [facility] [place] [facility] Mar 17, 2021 01:30 PM VA-TOBACCO FORMER USER [place] [facility] [place] [facility] Mar [...] LIFETIME NON-TOBACCO USER [place] [facility] [place] [facility] Mar 01, 2016 02:51 PM LIFETIME NON-TOBACCO USER [place] [facility] [place] [facility] Feb 10, 2015 09:31 AM QUIT TOBACCO USE > 7 YEARS AGO quit in 1964 [place] [facility] [place] [facility] Encounter Notes: All associated encounter notes This section contains the clinical notes associated to the Encounter. Date/Time Encounter Note(s) Provider Source Dec 29, 2023 03:07 PM ACUPUNCTURE NOTE: LOCAL TITLE: ACUPUNCTURE TREATMENT STANDARD TITLE: ACUPUNCTURE NOTE DATE OF NOTE: DEC 29, 2023@15:07 ENTRY DATE: DEC 29, 2023@15:07:32 AUTHOR: DAE WALSH EXP COSIGNER: URGENCY: STATUS: [...] MCALLISTER Arthritis 716.90 01/24/2007 RE MCALLISTER Date Dec CC / HPI - presents with Hx of chronic back pain that started during his service. Injured during a parachute jump and never reported injury. Pain was intermittent for many years but in the past 10 years has become constant and progressively worse. [facility] reports that walking any distance will induce [...] at 1/3 output. BM's regular no problems. [facility] reports that his right hip pain had moderate improvement that lasted nearly 4 weeks but became worse about 2 weeks ago. [facility] states the pain radiates from his lower lumbar right side into his hip. [facility] states he has otherwise been doing well with his pain. states he has a 4/10 pain level presently and he is able to get decent sleep at night. Walking can be difficult for any distance. OBJECTIVE General: . 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
--- OUTSIDE RECORDS SUMMARY | 2024-03-20 14:02 | XMS_ITS ---
Author Name [facility] [place] Organization [place] Address [address] [place] [address] Care Team Providers Care Paraffin Machine Operator Name Role Phone SOFI MANCERA Primary [...] [employer] CHARAN Haque Mar 13, 2015 [id number] VERONICA BROWN RT PATIENT MEDICARE (WNR) MEDICARE (M) PART B Aug 12, 2007 PART B [id number] VERONICA BROWN RT PATIENT MEDICARE (WNR) MEDICARE (M) PART A Jan 12, 2004 PART A [id number] VERONICA BROWN RT PATIENT Selected Encounter This section includes the information on record at [place] for the Encounter. Date/Time Encounter Type Encounter Description Reason Pro vider Source Jan 04, 2024 12:46 PM Outpatient Encounter RENAL/NEPHROL(EXCEPT DIALYSIS) IHE Encounter Template [...] [facility] [place] [facility] Jan 29, 2024 10:30 AM AM[place]UL[place]ORY [place] [facility] [place] [facility] Jan 30, 2024 03:30 PM AM[place]ULATORY [place]ICINE [place] [facility] [place] [facility] 2024 02:30 PM AM[place]ULATORY [place]ICINE [place] [facility] [place] [facility] Feb 05, 2024 11:00 AM AM[place]ULATORY [place] [facility] [place] [facility] Feb 06, 2024 03:00 PM AM[place]ULATORY [place]ICINE [place] [facility] [place] [facility] Feb 09, 2024 02:00 PM AM[place]ULATORY [place]ICINE [place] [facility] [place] [facility] Feb 12, 2024 11:00 AM AM[place]ATORY [place]ICINE [place] [facility] [place] [facility] Feb 15, 2024 01:00 PM AM[place]ULATORY [place]ICINE [place] [facility] [place] [facility] Feb 22, 2024 01:00 PM AM[place]ULATORY [place]ICINE [place] [facility] [place] [facility] Feb 29, 2024 09:00 AM AMBULATORY [place]ICINE [place] [facility] [place] [facility] Mar 08, 2024 10:30 AM AMBULATORY [place] MEDICINE [place] [facility] [place] [facility] Mar 18, 2024 11:00 AM AMBULATORY [place]ICINE [place] [facility] [place] [facility] Mar 25, 2024 10:00 AM AMBULATORY - MEDICINE [place] [facility] [place] [facility] Apr 04, 2024 03:00 PM AMBULATORY - MEDICINE [place] [facility] [place] [facility] Apr 05, 2024 11:00 AM AM[place]ULATORY [place]ICINE [place] [facility] [place] [facility] Apr 08, 2024 03:30 PM AM[place]ULATORY [place]ICINE [place] [facility] [place] [facility] Apr 23, 2024 01:00 PM [place] [facility] Apr 30, 2024 10:00 AM AM[place]ORY [place]INE [place] [facility] [place] [facility] May 03, 2024 01:00 PM [place] [facility] Lab Results: +/- 30 [...] Range Comment Dec 27, 2023 02:37 PM [place] [facility] VITAMIN D 25-OH (Therapy monitor) Specimen [...] For additional information, please refer to http://education .[employer]/faq/JQC114 (This link is being provided for informational/ educational purposes only.) This test was developed and its analytical performance characteristics have been determined by [employer], [place]. It has not been cleared or approved by the U.S. Food and Drug Administration. This assay has been validated pursuant to the CLIA regulations and is used for clinical purposes. This test was developed and its analytical performance characteristics have been determined by [employer] [place], [place]. It has not been cleared or approved by the U.S. Food and Drug Administration. This assay has been validated pursuant to the CLIA regulations and is used for clinical purposes. Test Performed by [facility], [employer] [facility], [address] [place], [place] Juan Martinez M.D., Ph.D., Director of Laboratories , [place] [id number] TEST PERFORMED AT: , Ordering Provider: SOFI MANCERA Report Released Date/Time: Dec 24, 2023 08:02 PM Reporting Lab: [facility] [address] [facility] [address] Performing Lab: [facility] [address] [facility], [address] [place] [address] VITAMIN D, 25-OH, TOTAL 44 ng/mL 30-100 VITAMIN D, 25-OH, D3 44 ng/mL VITAMIN D, 25-OH, D2 <4 ng/mL Dec 27, 2023 02:37 PM [facility] BASIC METABOLIC PANEL (fasting) Specimen Type: SERUM No comment entered. Ordering Provider: SOFI MANCERA Report Released Date/Time: Dec 24, 2023 08:02 PM Reporting Lab: [facility] [address] [facility] [address] Performing Lab: [facility] [address] [facility] [address] UREA NITROGEN 20 mg/dL 7-25 GLUCOSE 110 mg/dL H 65-100 SODIUM 141 mmol/L 135-145 POTASSIUM 4.4 mmol/L 3.5-5.0 CHLORIDE 111 mmol/L H 100-110 CO2 20 meq/L 20-30 CREATININE, Serum 1.98 mg/dL H 0.50-1.40 eGFR(CKD-EPI 2020) 32 mL/min L >60 Dec 27, 2023 02:37 PM [facility] TSH Specimen Type: SERUM No comment entered. Ordering Provider: SOFI MANCERA Report Released Date/Time: Dec 24, 2023 08:02 PM Reporting Lab: [facility] [address] [facility] [address] Performing Lab: [address] [address] TSH 0.79 u[IU]/mL 0.35-5.00 Dec 27, 2023 02:37 PM [facility] LIPID PANEL FASTING Specimen Type: SERUM No comment entered. Ordering Provider: SOFI MANCERA Report Released Date/Time: Dec 24, 2023 08:02 PM Reporting Lab: [facility] [address] [facility] [address] Performing Lab: [address] [address] CHOLESTEROL 129 mg/dL TRIGLYCERIDE 168 mg/dL H 0-150 LDL calculated 54 mg/dL 0-129 CHOL/HDL 3.1 HDL CHOLESTEROL 41 mg/dL 40-60 Dec 27, 2023 02:37 PM [facility] LIVER FUNCTION Specimen Type: SERUM No comment entered. Ordering Provider: SOFI MANCERA Report Released Date/Time: Dec 24, 2023 08:02 PM Reporting Lab: [facility] [address] [facility] [address] Performing Lab: [address] [address] PROTEIN,TOTAL 6.5 g/dL 6.0-8.3 ALBUMIN 3.4 g/dL L 3.5-5.0 ALKALINE PHOSPHATASE 74 U/L 40-150 AST 18 U/L 5-34 ALT 16 U/L BILIRUBIN, TOTAL 0.5 mg/dL 0.2-1.2 Dec 27, 2023 02:37 PM [facility] HEMOGLOBIN A1C PANEL Specimen Type: [...] Dec 24, 2023 08:02 PM Reporting Lab: [address] [address] Performing Lab: [address] [address] HEMOGLOBIN A1C 5.9 H 4.0-5.6 Dec 27, 2023 02:37 PM [facility] URINALYSIS CLEAN CATCH Specimen Type: URINE Comment: If Glucose = >500 and Ketones are positive, please alert the Physician. Ordering Provider: SOFI MANCERA Report Released Date/Time: Dec 24, 2023 08:02 PM Reporting Lab: [facility] [address] [facility] [address] Performing Lab: [address] [address] UA COLOR Yellow Yellow UA APPEARANCE Clear Clear UA GLUCOSE Normal mg/dL Negative UA KETONES NEGATIVE mg/dL Negative UA BLOOD NEGATIVE mg/dL Negative UA PROTEIN 30 mg/dL Negative UA NITRITE NEGATIVE mg/dL Negative UA BILIRUBIN NEGATIVE mg/dL Negative UA SPECIFIC GRAVITY 1.019 1.016-1.02 2 UA pH 6.0 5.0-9.0 UA UROBILINOGEN 2 mg/dL <2.0 UA LEUKOCYTE NEGATIVE Negative Dec 27, 2023 02:37 PM [facility] CBC AND DIFF (AUTO) Specimen Type: BLOOD No comment entered. Ordering Provider: SOFI MANCERA Report Released Date/Time: Dec 24, 2023 08:02 PM Reporting Lab: [address] [address] Performing Lab: [address] [address] WBC 9.67 10*3/uL 4.50-11.00 RBC 4.33 10*6/uL [...] 10*3/uL 0.00-0.00 Dec 27, 2023 02:37 PM [facility] MICROSCOPIC AUTOMATED, URINE Specimen Type: URINE Comment: If Glucose = >500 and Ketones are positive, please alert the Physician. Ordering Provider: SOFI MANCERA Report Released Date/Time: Dec 24, 2023 08:02 PM Reporting Lab: [facility] [address] [facility] [address] Performing Lab: [facility] [address] [facility] [address] UA WBC 0-5 /[HPF] 0-5 UA MUCUS FEW /[LPF] Trace UA RBC 3-5 /[HPF] 0-3 Dec 27, 2023 02:37 PM [facility] MICROALBUMIN CREATININE RATIO PANEL Specimen Type: URINE No comment entered. Ordering Provider: SOFI MANCERA Report Released Date/Time: Dec 24, 2023 08:02 PM Reporting Lab: [facility] [address] [facility] [address] Performing Lab: [facility] [address] [facility] [address] MICROALBUMIN/ CREATININE RATIO 101.5 mg/g H 0-29.9 MICROALBUMIN, QUANTITATIVE 14.7 mg/dL RR UNAVAIL CREATININE URINE 144.88 mg/dL Dec 27, 2023 02:37 PM [facility] URIC ACID Specimen Type: SERUM No comment entered. Ordering Provider: SOFI MANCERA Report Released Date/Time: Dec 24, 2023 08:02 PM Reporting Lab: [place] [facility] [facility] [address] [facility] [address] Performing Lab: [place] [facility] [facility] [address] [facility] [address] URIC ACID 2.8 mg/dL L 3.5-7.2 Social History: Smoking Status (Most current) and [...] VA-TOBACCO FORMER USER [place] [facility] [facility] Tobacco [...] YRS OR MORE [place] [facility] [facility] Nov 22, 2017 10:02 AM VA-TOBACCO NEVER USED [place] [facility] [facility] [facility] Mar 14, 2017 09:31 AM LIFETIME NON-TOBACCO USER [place] [facility] [place] [facility] Mar 01, 2016 02:51 PM LIFETIME NON-TOBACCO USER [place] [facility] [place] [facility] Feb 10, 2015 09:31 AM QUIT TOBACCO USE > 7 YEARS AGO [facility] Encounter Notes: All associated encounter notes This section contains the clinical notes associated to the Encounter. Date/Time Encounter Note(s) Provider Source Jan 04, 2024 12:46 PM TELEPHONE ENCOUNTE R NOTE: LOCAL TITLE: TELEPHONE NOTE/SPECIALTY CLINIC STANDARD TITLE: TELEPHONE ENCOUNTER NOTE DATE OF NOTE: JAN 04, 2024@12:46 ENTRY DATE: JAN 04, 2024@12:46:09 AUTHOR: JENNIFER CHONG EXP COSIGNER: URGENCY: STATUS: COMPLETED TELEPHONE NOTE/SPECIALTY CLINIC Has ADDENDA Clinic cancelation with NEPHROLOGY on 03/12/2024. RTC with PID of 03/11/2024 needs to be rescheduled. Left voicemail with phone number ext. [phone] and mailed letter /cas/ JENNIFER CHONG [employer] Signed: 01/04/2024 12:46 01/18/2024 ADDENDUM STATUS: COMPLETED RTC 03/11/2024 dispositioned due to veterans failure to respond to all contact efforts per department standards. Dispositioned on 01/18/2024. /cas/ [facility] [employer] Signed: 01/18/2024 10:07 [facility]
--- OUTSIDE RECORDS SUMMARY | 2024-03-20 14:03 | XMS_ITS ---
Author Name [facility] [place] [place] [facility] [place] Address [address] [place] [address] Care Team Providers Care Perforator Name Role Phone SOFI MANCERA Primary Care [...] Relationship to Policy [place] [facility] CHARAN Haque Mar 13, 2015 [id number] VERONICA BROWN RT PATIENT MEDICARE (WNR) MEDICARE (M) PART B Aug 12, 2007 PART B [id number] VERONICA BROWN RT PATIENT MEDICARE (WNR) MEDICARE (M) PART A Jan 12, 2004 PART A [id number] VERONICA BROWN RT PATIENT Selected Encounter This section includes the information on record at [place] for the Encounter. Date/Time Encounter Type Encounter Description Reason Provider Source Jan 30, 2024 03:30 PM MTMS BY PHARM EST 15 MIN TELEPHONE PRIMARY CARE ICD-10-CM E11.9 Type 2 diabetes mellitus without complications RENETTA FRENCH Encounter Template Text not used by [place] Assessments - Encounter Diagnoses This section includes the primary and secondary diagnoses documented for the Encounter. Date/Time Primary/Secondary Diagnosis Diagnosis Name Provider Source Jan 30, 2024 03:30 PM PRIMARY Type 2 diabetes mellitus without complications [place] [facility] [place] [facility] [place] Plan of Treatment: Future Appointments (+ [...] Date/Time Appointment Type Appointme nt Facility Name 2024 02:30 PM AM[place]ULATORY [place]IC[place] [facility] [place] [facility] [place] Feb 05, 2024 11:00 AM AM[place]ULATORY [place] [facility] [facility] [place] Feb 06, 2024 03:00 PM [facility] [place] [facility] [place] [facility] [place] Feb 09, 2024 02:00 PM AM[facility]ULATORY [facility]ICINE [facility] [place] [facility] [place] Feb 12, 2024 11:00 AM AM[place]ULATORY [place] [facility] [facility] [place] Feb 15, 2024 01:00 PM AMBULATORY [place]ICINE [place] [facility] [place] [facility] [place] Feb 22, 2024 01:00 PM [place]ULATORY [place] [facility] [place] [facility] [place] Feb 29, 2024 09:00 AM [facility]ULATORY [place] [facility] [facility] [place] [facility] [place] Mar 08, 2024 10:30 AM AMBULATORY [place] MEDICINE [facility] [place] [facility] [place] Mar 18, 2024 11:00 AM AM[facility]ULATORY [place]ICINE [place] [facility] [place] [facility] [place] Mar 25, 2024 10:00 AM AMBULATORY [place] MEDICINE [place] [facility] [place] [facility] [place] Apr 04, 2024 03:00 PM AMBULATORY [place] MEDICINE [place] [facility] [place] [facility] [place] Apr 05, 2024 11:00 AM AMBULATORY [place] MEDICINE [place] [facility] [place] [facility] [place] Apr 08, 2024 03:30 PM [place]ORY [place] [facility] [facility] [place] Apr 23, 2024 01:00 PM [facility] [place] Apr 30, 2024 10:00 AM [facility] [place] [facility] [place] [facility] [place] May 03, 2024 01:00 PM AMBULATORY - MEDICINE [facility] Active, Pending, and Scheduled Orders This section includes a listing of several types of active, pending, and scheduled orders, including clinic medications orders, diagnostic test orders, procedure orders and consult orders; where the start date of the order is 45 days before the date of the Encounter or 45 days after the date of theEncounter. The data comes from all [place] treatment facilities. Test Date/Time Test Type Test Details Facility Name Mar 11, 2024 12:00 AM Laboratory - Chemistry Order [facility] Mar 11, 2024 12:00 AM Laboratory - Chemistry Order PTH INTACT BLOOD (RED-PLAIN) [facility] Mar 11, 2024 12:00 AM Laboratory - Chemistry Order VITAMIN D (25-OH) BLOOD (SST-SERUM) [facility] Mar 11, 2024 12:00 AM Laboratory - Chemistry Order MAGNESIUM BLOOD (SST[facility]SERUM) [facility] Mar 11, 2024 12:00 AM Laboratory - Chemistry Order CALCIUM BLOOD (SST[facility]SERUM) [facility] Mar 11, 2024 12:00 AM Laboratory - Chemistry Order MICROALBUMIN CREATININE RATIO PANEL URINE (RANDOM) [facility] Mar 11, 2024 12:00 AM Laboratory - Chemistry Order BASIC METABOLIC PANEL (non-fasting) BLOOD (SST-SERUM) [facility] Mar 11, 2024 12:00 AM Laboratory - Chemistry Order CBC BLOOD (LAV-BLOOD) [facility] Mar 11, 2024 12:00 AM Laboratory - Chemistry Order FERRITIN BLOOD (SST[facility]SERUM) [facility] Mar 11, 2024 12:00 AM Laboratory - Chemistry Order IRON & TIBC PANEL BLOOD (SST-SERUM) [place] [facility] [place] [facility] [place] Mar 11, 2024 12:00 AM Laboratory - Chemistry Order LIPID PANEL, NON FASTING BLOOD (SST-SERUM) SP [place] [facility] [place] [facility] [place] Social History: Smoking Status (Most current) and [...] VA-TOBACCO FORMER USER [place] [facility] [place] [facility] [place] Tobacco Use History This section includes a history of the smoking, or tobacco-related health factors, that were collected on or before the date of the Encounter. The data comes from the [place] facility where the Encounter took place. Date/Time Smoking Status/Tobacco Use Comment F acility Apr 26, 2023 10:00 AM VA-TOBACCO QUIT 15 YRS OR MORE [facility] [place] [facility] [place] Mar 30, 2022 11:00 AM VA-TOBACCO FORMER USER [facility] [place] [facility] [place] Mar 30, 2022 11:00 AM VA-TOBACCO QUIT 15 YRS OR MORE [facility] [place] [facility] [place] Mar 17, 2021 01:30 PM VA-TOBACCO FORMER USER [facility] [place] [facility] [place] Mar 17, 2021 01:30 PM VA-TOBACCO NEVER USED [facility] [place] [facility] [place] Mar 17, 2021 01:30 PM VA-TOBACCO QUIT 15 YRS OR MORE [facility] [place] [facility] [place] Mar 31, 2020 10:30 AM VA-TOBACCO FORMER USER [facility] [place] [facility] [place] Mar 31, 2020 10:30 AM VA-TOBACCO QUIT 15 YRS OR MORE [facility] [place] [facility] [place] Nov 23, 2018 12:07 PM VA-TOBACCO FORMER USER [facility] [place] [facility] [place] Nov 23, 2018 12:07 PM VA-TOBACCO QUIT 15 YRS OR MORE [facility] [place] [facility] [place] Nov 22, 2017 10:02 AM VA-TOBACCO NEVER USED [place] [facility] [place] [facility] [place] Mar 14, 2017 09:31 AM LIFETIME NON-TOBACCO USER [facility] [place] [facility] [place] Mar 01, 2016 02:51 PM LIFETIME NON-TOBACCO USER [place] [facility] [place] [facility] [place] Feb 10, 2015 09:31 AM QUIT TOBACCO USE > 7 YEARS AGO [place] in 1964 [place] [facility] [place] [facility] [place] Encounter Notes: All associated encounter notes This section contains the clinical notes associated to the Encounter. Date/Time Encounter Note(s) Provider Source Jan 30, 2024 09:42 AM ADDENDUM: LOCAL TITLE: Addendum STANDARD TITLE: ADDENDUM DATE OF NOTE: JAN 30, 2024@09:42:45 ENTRY DATE: JAN 30, 2024@09:42:47 AUTHOR: RENETTA FRENCH EXP COSIGNER: URGENCY: STATUS: COMPLETED AMSA, please schedule appointment for: - Cwm/No/Tele/Pharm/Pact 2 Please schedule for 02/29/24 @0900 Thank you! /cas/ RENETTA FRENCH PHARMD, BCPS CLINICAL PHARMACIST PRACTITIONER Signed: 01/30/2024 09:43 Receipt Acknowledged By: 01/30/2024 10:03 /cas/ RENEE MORRIS AMSA --- Original Document --- 01/30/24 TELEPHONE NOTE/PHARMACY: JACQUELYN BROWN, 83 yo WHITE MALE, presents for telephone follow-up for diabetes management. JAN 30, 2024 Known Allergies: METFORMIN, LISINOPRIL, ATORVASTATIN Subjective: [place] referred to pharmacy clinic for diabetes management. At time of last visit, semaglutide was continued and insulin glargine-yfgn was decreased. Received call from in 01/19/24 (see addendum) reporting of dry heaving and changes to bowel movement pattern. Pt requested to stop semaglutide vs lower dose to previously tolerated 0.5mg dose. Insulin glargine-yfgn was increased subsequent to semaglutide discontinuation. Today pt reports he is doing well. Bowel movement pattern has retruned to normal. Pt reports occasional bouts of nausea, most recently this am for 5-10 minutes where pt was dry heaving. States it is less frequent and substantially less severe than previously. Pt is off semaglutide for ~9 days. Denies s/sx of hypoglycemia. Target Goals: A1C: <8%; FB-150 mg/dl Personal goals: - Maintain diabetes - Lose weight - eliminate insulin Objective: Diabetes Medication Regimen: Current diabetes medications: - insulin glargine-yfgn 5 units in the evening Previous diabetes medications: - metformin - insulin aspart - Semaglutide 1 mg once weekly Medication Adherence: denies adherence issues Diet Patterns: [...] empagliflozin was prescribed but then discontinued. SMBG: date fpbg ppbg 01/13/24 115 133 01/14/24 112 115 01/15/24 115 134 01/16/24 111 148 01/17/24 126 138 01/18/24 123 120 01/19/24 114 129 (ozempic D/C and increase to 5 units lantus) 01/20/24 112 128 01/21/24 130 130 01/22/24 113 110 01/23/24 97 114 01/24/24 109 129 01/25/24 114 141 01/26/24 101 146 01/27/24 111 139 01/28/24 115 123 01/29/24 100 145 01/30/24 112 Average 113 131 Date fpbg ppbg 12/31/23 121 167 01/01/24 112 142 01/02/24 112 147 01/03/24 113 119 01/04/24 119 136 01/05/24 113 132 01/06/24 105 143 01/07/24 132 121 01/08/24 112 Average 115 138 Date 12/12/23 126 169 12/13/23 125 135 [...] TAB 25MG BY MOUTH ACTIVE EVERY DAY 28 Total Medications Labs: CHEM 7 TREND LAB CUMULATIVE SELECTED Collection DT Spec GLUCOSE BUN CREATIN Sodium K+/Pot CL CO2 12/27/2023 14:37 SERUM 110 H 20 1.98 H 141 4.4 111 H 20 10/04/2023 11:44 SERUM 80 24 1.96 H 142 4.7 109 25 08/23/2023 11:19 SERUM 120 H 26 H 1.90 H 142 5.0 112 H 25 04/26/2023 11:12 SERUM 136 H 23 2.01 H 140 4.7 109 25 04/06/2023 11:39 SERUM 163 H 23 1.90 H 140 4.7 108 23 CHEM 7 Results Collection DT Spec Sodium K+/Pot CL CO2 GLUCOSE BUN eGFR 12/27/2023 14:37 SERUM 141 4.4 111 H 20 110 H 20 10/04/2023 11:44 SERUM 142 4.7 109 25 80 24 08/23/2023 11:19 SERUM 142 5.0 112 H [...] 4.3 111 H 22 119 H 24 eGFR CKD-EPI 202012/27/23 14:37 32 L SERUM LIVER PANEL TREND Collection DT Spec AST ALT T BILI ALK LEONOR T. PROT ALBUMIN 12/27/2023 14:37 SERUM 18 16 0.5 74 6.5 3.4 L 08/23/2023 11:19 SERUM 14 14 0.6 66 6.3 3.6 04/26/2023 11:12 SERUM 78 04/06/2023 11:39 SERUM 14 10 0.5 70 6.3 3.6 03/23/2023 14:03 SERUM 74 HEMOGLOBIN A1C TREND Collection DT Spec HGBA1c 12/27/2023 14:37 BLOOD 5.9 H 08/23/2023 11:19 BLOOD 6.3 H 04/06/2023 11:39 BLOOD 6.4 H 12/06/2022 13:43 BLOOD 6.3 H 07/22/2022 14:19 BLOOD 6.1 H LIPID PANEL TREND Collection DT Spec CHOL HDL CHO/HDL LDL-d LDL-c TRIG 12/27/2023 14:37 SERUM 129 41 3.1 54 168 H 08/23/2023 11:19 SERUM 130 52 2.5 54 120 04/26/2023 11:12 SERUM 131 49 04/06/2023 11:39 SERUM 142 53 2.7 65 118 03/23/2023 14:03 SERUM 138 49 Vitals: Ht: 68 in [172.7 cm] (01/01/2024 14:33) Wt: 214.7 lb [97.39 kg] (01/01/2024 14:33) BMI: BMI: 32.7 BP: 137/83 (01/01/2024 15:03) HR: 75 (01/01/2024 14:33) 12/27/23: 214 (naked) 01/08/24: 206 (naked) Assessment: DIABETES: Goal: A1c goal is <8% with a goal fasting BG average of 90-150mg/dL and a goal post-prandial BG average of <180mg/dL per ADA guideline. Goal adjusted based on age and CKD history. Pt currently at goal (A1C 5.9% 12/27/23). Fasting and post prandial at goal. Discussed semaglutide discontinuation. Pt notes ADRs after increase to 1mg dose. We discused restarting at 0.5mg and trialing discontinuation of insulin glargine-yfgn. Pt interested but will defer until nausea completely resolves. If pt opts not to retirla semaglutide at lower dose, may consider sitagliptin and eliminating insulin. CARDIOVASCULAR: For patients 60 years and over with Diabetes, recommend a goal of <140/90, with added benefit of reducing SBP closer to 130. 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 The was provided the opportunity express questions or concerns, and the plan was adjusted as needed to address these concerns. -Reviewed with any new medications, changes to the medication list, education, and plan from today's visit. Patient (and/or caregiver) verbalized understanding of the plan, including possible known risks and benefits, and had no additional questions. RTC: 01/30/24 @0900 (Tele)(landline) Time Spent: 15 minutes PBM PharmD Pharmacotherapy Rem V12: PHARMACIST INTERVENTIONS: TYPE 2 DIABETES MELLITUS Medication Intervention(s) Adjust dose or frequency of current medication due to other reason Discontinue and/or change to different medication Discontinue and/or change to different medication due to other reason Medication reconciliation (changes to active VA and non-VA medication lists to reconcile differences) No changes to medication lists made (medication review completed, no discrepancies identified) /cas/ RENETTA FRENCH PHARMD, BCPS CLINICAL PHARMACIST PRACTITIONER Signed: 01/30/2024 09:42 RENETTA FRENCH [place] [facility] [place] [facility] [place] Jan 30, 2024 07:56 AM PHARMACY TELEPHONE ENCOUNTER NOTE: LOCAL TITLE: TELEPHONE NOTE/PHARMACY STANDARD TITLE: PHARMACY TELEPHONE ENCOUNTER NOTE DATE OF NOTE: JAN 30, 2024@07:56 ENTRY DATE: JAN 30, 2024@07:56:41 AUTHOR: RENETTA FRENCH EXP COSIGNER: URGENCY: STATUS: COMPLETED TELEPHONE NOTE/PHARMACY Has ADDENDA JACQUELYN BROWN, 83 yo WHITE MALE, presents for telephone follow-up for diabetes management. JAN 30, 2024 Known Allergies: METFORMIN, LISINOPRIL, ATORVASTATIN Subjective: [place] referred to pharmacy clinic for diabetes management. At time of last visit, semaglutide was continued and insulin glargine-yfgn was decreased. Received call from in 01/19/24 (see addendum) reporting of dry heaving and changes to bowel movement pattern. Pt requested to stop semaglutide vs lower dose to previously tolerated 0.5mg dose. Insulin glargine-yfgn was increased subsequent to semaglutide discontinuation. Today pt reports he is doing well. Bowel movement pattern has retruned to normal. Pt reports occasional bouts of nausea, most recently this am for 5-10 minutes where pt was dry heaving. States it is less frequent and substantially less severe than previously. Pt is off semaglutide for ~9 days. Denies s/sx of hypoglycemia. Target Goals: A1C: <8%; FB-150 mg/dl Personal goals: - Maintain diabetes - Lose weight - eliminate insulin Objective: Diabetes Medication Regimen: Current diabetes medications: - insulin glargine-yfgn 5 units in the evening Previous diabetes medications: - metformin - insulin aspart - Semaglutide 1 mg once weekly Medication Adherence: denies adherence issues Diet Patterns: [...] empagliflozin was prescribed but then discontinued. SMBG: date fpbg ppbg 01/13/24 115 133 01/14/24 112 115 01/15/24 115 134 01/16/24 111 148 01/17/24 126 138 01/18/24 123 120 01/19/24 114 129 (ozempic D/C and increase to 5 units lantus) 01/20/24 112 128 01/21/24 130 130 01/22/24 113 110 01/23/24 97 114 01/24/24 109 129 01/25/24 114 141 01/26/24 101 146 01/27/24 111 139 01/28/24 115 123 01/29/24 100 145 01/30/24 112 Average 113 131 Date fpbg ppbg 12/31/23 121 167 01/01/24 112 142 01/02/24 112 147 01/03/24 113 119 01/04/24 119 136 01/05/24 113 132 01/06/24 105 143 01/07/24 132 121 01/08/24 112 Average 115 138 Date 12/12/23 126 169 12/13/23 125 135 [...] TAB 25MG BY MOUTH ACTIVE EVERY DAY 28 Total Medications Labs: CHEM 7 TREND LAB CUMULATIVE SELECTED Collection DT Spec GLUCOSE BUN CREATIN Sodium K+/Pot CL CO2 12/27/2023 14:37 SERUM 110 H 20 1.98 H 141 4.4 111 H 20 10/04/2023 11:44 SERUM 80 24 1.96 H 142 4.7 109 25 08/23/2023 11:19 SERUM 120 H 26 H 1.90 H 142 5.0 112 H 25 04/26/2023 11:12 SERUM 136 H 23 2.01 H 140 4.7 109 25 04/06/2023 11:39 SERUM 163 H 23 1.90 H 140 4.7 108 23 CHEM 7 Results Collection DT Spec Sodium K+/Pot CL CO2 GLUCOSE BUN eGFR 12/27/2023 14:37 SERUM 141 4.4 111 H 20 110 H 20 10/04/2023 11:44 SERUM 142 4.7 109 25 80 24 08/23/2023 11:19 SERUM 142 5.0 112 H [...] 4.3 111 H 22 119 H 24 eGFR CKD-EPI 202012/27/23 14:37 32 L SERUM LIVER PANEL TREND Collection DT Spec AST ALT T BILI ALK LEONOR T. PROT ALBUMIN 12/27/2023 14:37 SERUM 18 16 0.5 74 6.5 3.4 L 08/23/2023 11:19 SERUM 14 14 0.6 66 6.3 3.6 04/26/2023 11:12 SERUM 78 04/06/2023 11:39 SERUM 14 10 0.5 70 6.3 3.6 03/23/2023 14:03 SERUM 74 HEMOGLOBIN A1C TREND Collection DT Spec HGBA1c 12/27/2023 14:37 BLOOD 5.9 H 08/23/2023 11:19 BLOOD 6.3 H 04/06/2023 11:39 BLOOD 6.4 H 12/06/2022 13:43 BLOOD 6.3 H 07/22/2022 14:19 BLOOD 6.1 H LIPID PANEL TREND Collection DT Spec CHOL HDL CHO/HDL LDL-d LDL-c TRIG 12/27/2023 14:37 SERUM 129 41 3.1 54 168 H 08/23/2023 11:19 SERUM 130 52 2.5 54 120 04/26/2023 11:12 SERUM 131 49 04/06/2023 11:39 SERUM 142 53 2.7 65 118 03/23/2023 14:03 SERUM 138 49 Vitals: Ht: 68 in [172.7 cm] (01/01/2024 14:33) Wt: 214.7 lb [97.39 kg] (01/01/2024 14:33) BMI: BMI: 32.7 BP: 137/83 (01/01/2024 15:03) HR: 75 (01/01/2024 14:33) 12/27/23: 214 (naked) 01/08/24: 206 (naked) Assessment: DIABETES: Goal: A1c goal is <8% with a goal fasting BG average of 90-150mg/dL and a goal post-prandial BG average of <180mg/dL per ADA guideline. Goal adjusted based on age and CKD history. Pt currently at goal (A1C 5.9% 12/27/23). Fasting and post prandial at goal. Discussed semaglutide discontinuation. Pt notes ADRs after increase to 1mg dose. We discused restarting at 0.5mg and trialing discontinuation of insulin glargine-yfgn. Pt interested but will defer until nausea completely resolves. If pt opts not to retirla semaglutide at lower dose, may consider sitagliptin and eliminating insulin. CARDIOVASCULAR: For patients 60 years and over with Diabetes, recommend a goal of <140/90, with added benefit of reducing SBP closer to 130. 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 The [place] was provided the opportunity express questions or concerns, and the plan was adjusted as needed to address these concerns. -Reviewed with [place] any new medications, changes to the medication list, education, and plan from today's visit. Patient (and/or caregiver) verbalized understanding of the plan, including possible known risks and benefits, and had no additional questions. RTC: 01/30/24 @0900 (Tele)(landline) Time Spent: 15 minutes PBSharmila PharmCesar Pharmacotherapy Rem V12: PHARMACIST INTERVENTIONS: TYPE 2 DIABETES MELLITUS Medication Intervention(s) Adjust dose or frequency of current medication due to other reason Discontinue and/or change to different medication Discontinue and/or change to different medication due to other reason Medication reconciliation (changes to active VA and non-VA medication lists to reconcile differences) No changes to medication lists made (medication review completed, no discrepancies identified) /cas/ RENETTA FRENCH PHARMD, JOANNA CLINICAL PHARMACIST PRACTITIONER Signed: 01/30/2024 09:42 01/30/2024 ADDENDUM STATUS: COMPLETED AMSA, please schedule appointment for: - Cwm/No/Tele/Pharm/Pact 2 Please schedule for 02/29/24 @0900 Thank you! /aida FRENCH PHARMD, JOANNA CLINICAL PHARMACIST PRACTITIONER Signed: 01/30/2024 09:43 Receipt Acknowledged By: * AWAITING SIGNATURE * RENEE MORRIS [facility]
--- OUTSIDE RECORDS SUMMARY | 2024-03-20 14:03 | XMS_ITS ---
Author Name [facility] Organization [facility] Address [address] [place] [address] Care Team Providers Care Casing Mixer Name Role Phone SOFI MANCERA Primary Care [...] Relationship to Policy Se[place] BC[place] MEDICARE [facility] MEDEX CHARAN Haque Mar 13, 2015 [id number] VERONICA BROWN RT PATIENT MEDICARE (WNR) MEDICARE (M) PART B Aug 12, 2007 PART B [id number] VERONICA BROWN RT PATIENT MEDICARE (WNR) MEDICARE (M) PART A Jan 12, 2004 PART A [id number] VERONICA BROWN RT PATIENT Selected Encounter This section includes the information on record at [facility] for the Encounter. Date/Time Encounter Type Encounter Description Reason Provider Source Jan 08, 2024 03:30 PM MTMS BY PHARM EST 15 MIN TELEPHONE PRIMARY CARE ICD-10-CM E11.9 Type 2 diabetes mellitus without complications RENETTA FRENCH Encounter Template Text not used by [facility] Assessments - Encounter Diagnoses This section includes the primary and secondary diagnoses documented for the Encounter. Date/Time Primary/Secondary Diagnosis Diagnosis Name Provider Source Jan 08, 2024 03:30 PM PRIMARY Type 2 diabetes mellitus without complications RENETTA FRENCH [facility] [place] [facility] Plan of Treatment: Future Appointments (+ 6 months) and Future Tests (+/- 45 days) The Plan of Treatment section includes future care activities for the patient from all [facility] treatmentfacilities. This section includes future appointments and future orders which are active, pending or scheduled. Future Appointments This section includes appointments that were scheduled to occur 6 months from the date of the Encounter, up to a maximum of 20 appointments. The data comes from all [facility] treatment facilities. Appointment Date/Time Appointment Type Appointme nt Facility Name Jan 29, 2024 10:30 AM AMBULATORY - MEDICINE [facility] [place] [facility] Jan 30, 2024 03:30 PM AMBULATORY - MEDICINE [facility] [place] [facility] 2024 02:30 PM AM[facility]ULAT[facility]ICINE [facility] [place] [facility] Feb 05, 2024 11:00 AM AMBULATORY - MEDICINE [facility] [place] [facility] Feb 06, 2024 03:00 PM AMBULATORY - MEDICINE [facility] [place] [facility] Feb 09, 2024 02:00 PM AMBULATORY - MEDICINE [facility] [place] [facility] Feb 12, 2024 11:00 AM AMBULATORY - MEDICINE [facility] [place] [facility] Feb 15, 2024 01:00 PM AMBULATORY - MEDICINE [facility] [place] [facility] Feb 22, 2024 01:00 PM AMBULATORY - MEDICINE [facility] [place] [facility] Feb 29, 2024 09:00 AM AMBULATORY - MEDICINE [facility] [place] [facility] Mar 08, 2024 10:30 AM AMBULATORY - MEDICINE [facility] [place] [facility] Mar 18, 2024 11:00 AM AMBULATORY - MEDICINE [facility] [place] [facility] Mar 25, 2024 10:00 AM AMBULATORY - MEDICINE [facility] [place] [facility] Apr 04, 2024 03:00 PM AMBULATORY - MEDICINE [facility] [place] [facility] Apr 05, 2024 11:00 AM AMBULATORY - MEDICINE [facility] [place] [facility] Apr 08, 2024 03:30 PM AMBULATORY - MEDICINE [facility] [place] [facility] Apr 23, 2024 01:00 PM AMBULATORY - MEDICINE [facility] [place] [facility] Apr 30, 2024 10:00 AM [facility] May 03, 2024 01:00 PM [facility] Lab Results: +/- 30 days of the encounter This section includes the Chemistry and Hematology Lab Results on record with [facility] for the patient. Radiology Reports and Pathology Reports are provided separately, in subsequent sections. Lab Results This section contains the Chemistry/Hematology Results that were resulted 30 days before or 30 daysafter the date of the Encounter. Date/Time Source Result Type Result - Unit Interpretation Reference Range Comment Dec 27, 2023 02:37 PM [facility] VITAMIN D 25-OH (Therapy monitor) Specimen [...] For additional information, please refer to [email or web address] [email or web address] (This link is being provided for informational/ educational purposes only.) This test was developed and its analytical performance characteristics have been determined by [employer] [place], [place]. It has not been cleared or approved by the U.S. Food and Drug Administration. This assay has been validated pursuant to the CLIA regulations and is used for clinical purposes. This test was developed and its analytical performance characteristics have been determined by [employer] [place] [place]. It has not been cleared or approved by the U.S. Food and Drug Administration. This assay has been validated pursuant to the CLIA regulations and is used for clinical purposes. Test Performed by [facility], [facility], [address] [place], [place] Juan Martinez M.D., Ph.D., Director of Laboratories , CLIA [id number] TEST PERFORMED AT: , Ordering Provider: SOFI MANCERA Report Released Date/Time: Dec 24, 2023 08:02 PM Reporting Lab: [facility] [address] [address] Performing Lab: [facility] [address] [address] VITAMIN D, 25-OH, TOTAL 44 ng/mL 30-100 VITAMIN D, 25-OH, D3 44 ng/mL VITAMIN D, 25-OH, D2 <4 ng/mL Dec 27, 2023 02:37 PM [facility] TSH Specimen Type: SERUM No comment entered. Ordering Provider: SOFI MANCERA Report Released Date/Time: Dec 24, 2023 08:02 PM Reporting Lab: [facility] [address] [address] Performing Lab: [address] [address] TSH 0.79 u[IU]/mL 0.35-5.00 Dec 27, 2023 02:37 PM [facility] LIPID PANEL FASTING Specimen Type: SERUM No comment entered. Ordering Provider: SOFI MANCERA Report Released Date/Time: Dec 24, 2023 08:02 PM Reporting Lab: [facility] [address] [address] Performing Lab: [address] [address] CHOLESTEROL 129 mg/dL TRIGLYCERIDE 168 mg/dL H 0-150 LDL calculated 54 mg/dL 0-129 CHOL/HDL 3.1 HDL CHOLESTEROL 41 mg/dL 40-60 Dec 27, 2023 02:37 PM [facility] BASIC METABOLIC PANEL (fasting) Specimen Type: SERUM No comment entered. Ordering Provider: SOFI MANCERA Report Released Date/Time: Dec 24, 2023 08:02 PM Reporting Lab: [address] [address] Performing Lab: [address] [address] UREA NITROGEN 20 mg/dL 7-25 GLUCOSE 110 mg/dL H 65-100 SODIUM 141 mmol/L 135-145 POTASSIUM 4.4 mmol/L 3.5-5.0 CHLORIDE 111 mmol/L H 100-110 CO2 20 meq/L 20-30 CREATININE, Serum 1.98 mg/dL H 0.50-1.40 eGFR(CKD-EPI 2020) 32 mL/min L >60 Dec 27, 2023 02:37 PM [facility] LIVER FUNCTION Specimen Type: SERUM No comment entered. Ordering Provider: SOFI MANCERA Report Released Date/Time: Dec 24, 2023 08:02 PM Reporting Lab: [address] [address] Performing Lab: [address] [address] PROTEIN,TOTAL 6.5 g/dL 6.0-8.3 ALBUMIN 3.4 g/dL L 3.5-5.0 ALKALINE PHOSPHATASE 74 U/L 40-150 AST 18 U/L 5-34 ALT 16 U/L BILIRUBIN, TOTAL 0.5 mg/dL 0.2-1.2 Dec 27, 2023 02:37 PM [facility] HEMOGLOBIN A1C PANEL Specimen Type: [...] Dec 24, 2023 08:02 PM Reporting Lab: [address] [address] Performing Lab: [facility] [address] [address] HEMOGLOBIN A1C 5.9 H 4.0-5.6 Dec 27, 2023 02:37 PM [facility] MICROALBUMIN CREATININE RATIO PANEL Specimen Type: URINE No comment entered. Ordering Provider: SOFI MANCERA Report Released Date/Time: Dec 24, 2023 08:02 PM Reporting Lab: [facility] [address] [address] Performing Lab: [facility] [address] [address] MICROALBUMIN/ CREATININE RATIO 101.5 mg/g H 0-29.9 MICROALBUMIN, QUANTITATIVE 14.7 mg/dL RR UNAVAIL CREATININE URINE 144.88 mg/dL Dec 27, 2023 02:37 PM [facility] URIC ACID Specimen Type: SERUM No comment entered. Ordering Provider: SOFI MANCERA Report Released Date/Time: Dec 24, 2023 08:02 PM Reporting Lab: [facility] [address] [address] Performing Lab: [address] [address] URIC ACID 2.8 mg/dL L 3.5-7.2 Dec 27, 2023 02:37 PM [facility] MICROSCOPIC AUTOMATED, URINE Specimen Type: URINE Comment: If Glucose = >500 and Ketones are positive, please alert the Physician. Ordering Provider: SOFI MANCERA Report Released Date/Time: Dec 24, 2023 08:02 PM Reporting Lab: [facility] [address] [address] Performing Lab: [address] [address] UA WBC 0-5 /[HPF] 0-5 UA MUCUS FEW /[LPF] Trace UA RBC 3-5 /[HPF] 0-3 Dec 27, 2023 02:37 PM [facility] URINALYSIS CLEAN CATCH Specimen Type: URINE Comment: If Glucose = >500 and Ketones are positive, please alert the Physician. Ordering Provider: SOFI MANCERA Report Released Date/Time: Dec 24, 2023 08:02 PM Reporting Lab: [facility] [address] [address] Performing Lab: [facility] [address] [address] UA COLOR Yellow Yellow UA APPEARANCE Clear Clear UA GLUCOSE Normal mg/dL Negative UA KETONES NEGATIVE mg/dL Negative UA BLOOD NEGATIVE mg/dL Negative UA PROTEIN 30 mg/dL Negative UA NITRITE NEGATIVE mg/dL Negative UA BILIRUBIN NEGATIVE mg/dL Negative UA SPECIFIC GRAVITY 1.019 1.016-1.02 2 UA pH 6.0 5.0-9.0 UA UROBILINOGEN 2 mg/dL <2.0 UA LEUKOCYTE NEGATIVE Negative Dec 27, 2023 02:37 PM [facility] CBC AND DIFF (AUTO) Specimen Type: BLOOD No comment entered. Ordering Provider: SOFI MANCERA Report Released Date/Time: Dec 24, 2023 08:02 PM Reporting Lab: [facility] [address] [address] Performing Lab: [address] [address] WBC 9.67 10*3/uL 4.50-11.00 RBC 4.33 10*6/uL [...] and tobacco- related health factors from the [facility] facility where the Encounter took place. Current Smoking Status This section includes the most current smoking, or tobacco-related health factor, from the [facility] facility where the Encounter took place. Date/Time Current Smoking Status Comment María Elena armijo Apr 26, 2023 10:00 AM VA-TOBACCO FORMER USER [facility] [place] [facility] Tobacco Use History This section includes a history of the smoking, or tobacco-related health factors, that were collected on or before the date of the Encounter. The data comes from the [facility] facility where the Encounter took place. Date/Time Smoking Status/Tobacco Use Comment F mushtaq Apr 26, 2023 10:00 AM VA-TOBACCO QUIT 15 YRS OR MORE [facility] [place] [facility] Mar 30, 2022 11:00 AM VA-TOBACCO FORMER USER [facility] [place] [facility] Mar 30, 2022 11:00 AM VA-TOBACCO QUIT 15 YRS OR MORE [facility] [place] [facility] Mar 17, 2021 01:30 PM VA-TOBACCO FORMER USER [facility] [place] [facility] Mar 17, 2021 01:30 PM VA-TOBACCO NEVER USED [facility] [place] [facility] Mar 17, 2021 01:30 PM VA-TOBACCO QUIT 15 YRS OR MORE [facility] [place] [facility] Mar 31, 2020 10:30 AM VA-TOBACCO FORMER USER [facility] [place] [facility] Mar 31, 2020 10:30 AM VA-TOBACCO QUIT 15 YRS OR MORE [facility] [place] [facility] Nov 23, 2018 12:07 PM VA-TOBACCO FORMER USER [facility] [place] [facility] Nov 23, 2018 12:07 PM VA-TOBACCO QUIT 15 YRS OR MORE [facility] [place] [facility] Nov 22, 2017 10:02 AM VA-TOBACCO NEVER USED [facility] [place] [facility] Mar 14, 2017 09:31 AM LIFETIME NON-TOBACCO USER [facility] [place] [facility] Mar 01, 2016 02:51 PM LIFETIME NON-TOBACCO USER [facility] [place] [facility] Feb 10, 2015 09:31 AM QUIT TOBACCO USE > 7 YEARS AGO quit in 1963 [facility] Encounter Notes: All associated encounter notes This section contains the clinical notes associated to the Encounter. Date/Time Encounter Note(s) Provider Source Jan 08, 2024 04:11 PM PHARMACY TELEPHONE ENCOUNTER NOTE: LOCAL TITLE: TELEPHONE NOTE/PHARMACY STANDARD TITLE: PHARMACY TELEPHONE ENCOUNTER NOTE DATE OF NOTE: JAN 08, 2024@16:11 ENTRY DATE: JAN 08, 2024@16:12:01 AUTHOR: RENETTA FRENCH EXP COSIGNER: URGENCY: STATUS: COMPLETED TELEPHONE NOTE/PHARMACY Has ADDENDA JACQUELYN BROWN, 83 yo WHITE MALE, presents for telephone follow-up for diabetes management. JAN 08, 2024 Known Allergies: METFORMIN, LISINOPRIL, ATORVASTATIN Subjective: Milton referred to pharmacy clinic for diabetes management. At time of last visit, semaglutide was increased and insulin glargine-yfgn was decreased. Today pt reports he is doing well. Had PCP visit recently and was happy with results of labwork. He denies ADRs to current regimen or s/sx of low blood sugar. Pt reports he started first semaglutide 1 mg dose on 12/30/23. States weight has dropped and he noticed he is eating less. Target Goals: A1C: <8%; FB-150 mg/dl Personal goals: - Maintain diabetes - Lose weight - eliminate insulin Objective: Diabetes Medication Regimen: Current diabetes medications: - insulin glargine-yfgn 7 units in the evening - Semaglutide 1 mg once weekly Previous diabetes medications: - [...] was prescribed but then discontinued. SMBG: Date fpbg ppbg 12/31/23 121 167 01/01/24 [...] 12/27/23). Fasting and post prandial at goal. Will decrease insulin glargine yfgn given current A1C and blood sugar control. Discussed risks of having A1C under 6%. May consider discontinuation at f/u for insulin. CARDIOVASCULAR: For patients 60 years and over with Diabetes, recommend a goal of <140/90, with added benefit of reducing SBP closer to 130. 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 The was provided the opportunity express questions or concerns, and the plan was adjusted as needed to address these concerns. -Reviewed with any new medications, changes to the medication list, education, and plan from today's visit. Patient (and/or caregiver) verbalized understanding of the plan, including possible known risks and benefits, and had no additional questions. RTC: 01/30/24 @6560 (Tele)(landline) Time Spent: 15 minutes PBM PharmD Pharmacotherapy Rem V12: PHARMACIST INTERVENTIONS: TYPE 2 DIABETES MELLITUS Medication Intervention(s) Adjust dose or frequency of current medication due to other reason Medication reconciliation (changes to active VA and non-VA medication lists to reconcile differences) No changes to medication lists made (medication review completed, no discrepancies identified) /aida FRENCH PHARMD, BCPS CLINICAL PHARMACIST PRACTITIONER Signed: 01/08/2024 16:19 01/19/2024 ADDENDUM STATUS: COMPLETED Received call from pt. Reports of untolerable dry heaving on Monday, three days after semaglutide dose. Pt also notes not being regular with bowel movements . We discussed lowering dose back to 0.5 mg which pt had success with for ~12 weeks but pt would rather discontinue. Will adjust insulin glargine yfgn to 5 units daily at this time. Will keep f/u appt with CPP. /aida FRENCH PHARMD, BCPS CLINICAL PHARMACIST PRACTITIONER Signed: 01/19/2024 14:20 RENETTA FRENCH [facility]
--- OUTSIDE RECORDS SUMMARY | 2024-03-20 14:03 | XMS_ITS ---
Author Name [facility] [place] Address [address] [place] [address] Care Team Providers Care Occupational Health Nurse Supervisor Name Role Phone SOFI MANCERA Primary Care [...] Policy [place] MEDIC[place] JONELLE ROBLEDOEX CHARAN Fountain Mar 13, 2015 [id number] VERONICA BROWN RT PATIENT MEDICARE (WNR) MEDICARE (M) PART B Aug 12, 2007 PART B [id number] VERONICA BROWN RT PATIENT MEDICARE (WNR) MEDICARE (M) PART A Jan 12, 2004 PART A [id number] VERONICA BROWN RT PATIENT Selected Encounter This section includes the information on record at [place] for the Encounter. Date/Time Encounter Type Encounter Description Reason Provider Source 2024 02:30 PM MANUAL THERAPY 1/> [facility] ICD-10-CM M54.59 Other low back pain LAUREN QUIGLEY Encounter Template Text not used by [facility] Assessments - Encounter Diagnoses This section includes the primary and secondary diagnoses documented for the Encounter. Date/Time Primary/Secondary Diagnosis Diagnosis Name Provider Source Feb 20, 2024 05:02 PM PRIMARY Other low back pain LAUREN QUIGLEY [place] [facility] [place] [facility] Plan of Treatment: Future Appointments (+ 6 months) and Future Tests (+/- 45 days) The Plan of Treatment section includes future care activities for the patient from all [place] treatmentfacilities. This section includes future appointments and future orders which are active, pending or scheduled. Future Appointments This section includes appointments that were scheduled to occur 6 months from the date of the Encounter, up to a maximum of 20 appointments. The data comes from all [place] treatment facilities. Appointment Date/Time Appointment Type Appointme nt Facility Name Feb 05, 2024 11:00 AM AMBULATORY - [place]ICINE [place] [facility] [place] [facility] Feb 06, 2024 03:00 PM AMBULATORY - MEDICINE [place] [facility] [place] [facility] Feb 09, 2024 02:00 PM AMBULATORY - MEDICINE [place] [facility] [place] [facility] Feb 12, 2024 11:00 AM AMBULATORY - MEDICINE [place] [facility] [place] [facility] Feb 15, 2024 01:00 PM AMBULATORY - MEDICINE [place] [facility] [place] [facility] Feb 22, 2024 01:00 PM AMBULATORY - MEDICINE [place] [facility] [place] [facility] Feb 29, 2024 09:00 AM AMBULATORY - MEDICINE [place] [facility] [place] [facility] Mar 08, 2024 10:30 AM AMBULATORY - MEDICINE [place] [facility] [place] [facility] Mar 18, 2024 11:00 AM AMBULATORY - MEDICINE [place] [facility] [place] [facility] Mar 25, 2024 10:00 AM AMBULATORY - MEDICINE [place] [facility] [place] [facility] Apr 04, 2024 03:00 PM AMBULATORY - MEDICINE [place] [facility] [place] [facility] Apr 05, 2024 11:00 AM AMBULATORY - MEDICINE [place] [facility] [place] [facility] Apr 08, 2024 03:30 PM AMBULATORY - MEDICINE [place] [facility] [place] [facility] Apr 23, 2024 01:00 PM AMBULATORY [facility]INE [place] [facility] [place] [facility] Apr 30, 2024 10:00 AM AMBULATORY - MEDICINE [place] [facility] May 03, 2024 01:00 PM AMBUL[facility]ORY - MED[facility] Active, Pending, and Scheduled Orders This section includes a listing of several types of active, pending, and scheduled orders, including clinic medications orders, diagnostic test orders, procedure orders and consult orders; where the start date of the order is 45 days before the date of the Encounter or 45 days after the date of theEncounter. The data comes from all [place] treatment facilities. Test Date/Time Test Type Test Details Facility Name Mar 11, 2024 12:00 AM Laboratory - Chemistry Order PO4 [facility]LO[facility] ([facility]UM[facility] Mar 11, 2024 12:00 AM Laboratory - Chemistry Order PTH INTACT BLOOD (RED-PLAIN) [facility] Mar 11, 2024 12:00 AM Laboratory - Chemistry Order VITAMIN D (25-[place]) BLOOD (SST-SERUM) [facility] Mar 11, 2024 12:00 AM Laboratory - Chemistry Order MAGNESIUM BLOOD (SST-SERUM) [facility] Mar 11, 2024 12:00 AM Laboratory - Chemistry Order CALCIUM BLOOD (SST-SERUM) [facility] Mar 11, 2024 12:00 AM Laboratory - Chemistry Order BASIC METABOLIC PANEL (non-fasting) BLOOD (SST-SERUM) [facility] Mar 11, 2024 12:00 AM Laboratory - Chemistry Order CBC BLOOD (LAV-BLOOD) [facility] Mar 11, 2024 12:00 AM Laboratory - Chemistry Order MICROALBUMIN CREATININE RATIO PANEL URINE (RANDOM) [facility] Mar 11, 2024 12:00 AM Laboratory - Chemistry Order FERRITIN BLOOD (SST-SERUM) [facility] Mar 11, 2024 12:00 AM Laboratory - Chemistry Order IRON & TIBC PANEL BLOOD (SST-SERUM) [facility] Mar 11, 2024 12:00 AM Laboratory - Chemistry Order LIPID PANEL, NON FASTING BLOOD (SST-SERUM) SP [place] [facility] [place] [facility] Social History: Smoking Status (Most [...] ity Apr 26, 2023 10:00 AM VA-TOBACCO QUIT 15 YRS OR MORE [place] [facility] Tobacco Use History This section includes a history of the smoking, or tobacco-related health factors, that were collected on or before the date of the Encounter. The data comes from the [place] facility where the Encounter took place. Date/Time Smoking Status/Tobacco Use Comment F acshahbaz Apr 26, 2023 10:00 AM VA-TOBACCO QUIT 15 YRS OR MORE [facility] [place] [facility] Mar 30, 2022 11:00 AM VA-TOBACCO FORMER USER [facility] [place] [facility] Mar 30, 2022 11:00 AM VA-TOBACCO QUIT 15 YRS OR MORE [facility] [place] [facility] Mar 17, 2021 01:30 PM VA-TOBACCO FORMER USER [place] [facility] [facility] Mar 17, 2021 01:30 PM VA-TOBACCO NEVER USED [place] [facility] [facility] Mar 17, 2021 01:30 PM VA-TOBACCO QUIT 15 YRS OR MORE [facility] [place] [facility] Mar 31, 2020 10:30 AM VA-TOBACCO FORMER USER [facility] [place] [facility] Mar 31, 2020 10:30 AM VA-TOBACCO QUIT 15 YRS OR MORE [facility] [place] [facility] Nov 23, 2018 12:07 PM VA-TOBACCO FORMER USER [facility] [place] [facility] Nov 23, 2018 12:07 PM VA-TOBACCO QUIT 15 YRS OR MORE [place] [facility] [place] [facility] Nov 22, 2017 10:02 AM VA-TOBACCO NEVER USED [place] [facility] [facility] Mar 14, 2017 09:31 AM LIFETIME NON-TOBACCO USER [facility] [place] [facility] Mar 01, 2016 02:51 PM LIFETIME NON-TOBACCO USER [facility] [facility] Feb 10, 2015 09:31 AM QUIT TOBACCO USE > 7 YEARS AGO [facility] Encounter Notes: All associated encounter notes This section contains the clinical notes associated to the Encounter. Date/Time Encounter Note(s) Provider Source 2024 02:31 PM CHIROPRACTIC NOTE: LOCAL TITLE: CHIROPRACTOR PROGRESS NOTE STANDARD TITLE: CHIROPRACTIC NOTE DATE OF NOTE: 2024@14:31 ENTRY DATE: 2024@14:31:38 AUTHOR: LAUREN QUIGLEY COSIGNER: URGENCY: STATUS: COMPLETED JACQUELYN BROWN is a 83 WHITE MALE with prior history of COMBAT SERVICE INDICATED: No POS: PERIOD OF SERVICE - OTHER OR NONE SERVICE BRANCH: Service Connected Disabilities with % Eligibility: Active Problem Chronic dermatitis L30.9, Onset 10/18/2023 SOFI MANCERA Atrial fibrillation I48.91, Onset 0 10/12/2022 SOFI [...] Onset 01/29/2008 RE MCALLISTER Hyperlipidemia (SNOMED CT 00260364) 10/25/2021 SHANTHI MARSH Obesity (SNOMED CT 243474021) E66.8 01/26/2022 MARSHSHANTHI Essential hypertension 401.9 01/24/2007 RE MCALLISTER Gastroesophageal Reflux Disorder 53 01/24/2007 RE MCALLISTER Arthritis 716.90 01/24/2007 RE MCALLISTER Past Surgeries: knee arthroplasty Patient [facility] [place] [facility] with C/C low back, right side into Right posterior lateral thigh.Vet reports much relief from sx after the last visit. He states that there is no pain with hip abduction. 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 It has progressed over time. >20 minutes of pushing a cart caused pain but is now OK after Acupuncture. Palliative: Acupuncture has helped; Icy Hot; if needed he takes one Tylenol which he limits due to Kidney disease. Patient has a heated cushion in recliner. Provocative: bending >5 minutes; prolonged standing >an hour ; getting up from sitting. 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 He has a membership to [employer] in [employer] but no exercise for about ten days. Prior to the back pain he attended gym 3 times per day. Vet has/has not tried Yoga Pertinent Imaging: Reviewed Radiologist's report Patient denies bowel/bladder dysfunction saddle anesthesia, recent fevers, infections, night sweats, unexplained weight loss, dysphagia, dysarthria, numbness, diploplia About 10 days ago He started Ozempic and had a problem with vomiting. Patient stopped taking Ozempic and C/O persistent withdrawal sx GOALS: getting up from sitting. Get up from bed w/o pain. He feels pain when lying in bed in am EXAM Patient enters clinic FWB without need of assistive device - without signs of acute distress, antalgia, or gait alteration Patient appears to be well nourished, is well groomed, pleasant, cooperative in NAD, gait and station unremarkable. AAOx3, speech is fluent. Friend's: Neg bilat Rhombergs no sway General exam findings Cursory PE demonstrates no acute or emergent health conditions. No signs of acute pulmonary distress, breathing is steady and non-labored. No distal edema or signs of peripheral circulatory distress. No saddle paresthesia and no acute bowel or bladder dysfunction. Active LUMBAR ROM limited and provocative into: Bilat Lateral Bending Extension Flexion Rotation Motor strength graded 5/5 hip flexion 5/5 5/5 knee extension 5/5 5/5 foot dorsifexion 5/5 5/5 foot inversion 5/5 5/5 foot eversion 5/5 5/5 L4-S1 (B) DTR's 2+ at L4 & S1 Sensation grossly intact to light touch L4-S1 (B) No clonus appreciated upon ankle dorsiflexion. Denies calf tenderness (B) Lumbar Orthopedic testing: Valsalva Maneuver: Neg Seated Dural Tension Test neg SLR/seated slump NEG Kemps POS Prone knee bending POS R anterior thigh pain SI provocation testing NEG Fabere's neg Direct S-I palpation Neg Soft tissue palpation reveals hypertonicity and tenderness R piriformis at greater trochanter and lower lumbar paraspinals on R Motion palpation reveals intersegmental lumbar somatic dysfunction with relative joint hypomobility. IMPRESSION: It is reasonable in this case to apply a conservative course of manual therapy to address myofascial and joint findings while encouraging activity and stretching specific to the patient's presentation. PLAN: Treatment #1. I explained all of this to the patient and the patient seemed to understand. Treatment options from least invasive to most with the associated risks, benefits, alternatives, and potential outcomes were discussed in detail. Potential risks associated with spinal manipulative therapy, the following were shared with the patient: Likely (transient mild post-treatment soreness); Less Likely (Bruising, sprain/strain); Rare but potentially serious (disc herniation, fracture); Extremely Rare but serious (epidural spinal hematoma, cauda equina syndrome). Informed consent obtained to provide management consisting of: ~ Lumbar F/D decompression manipulation with the intended goal of the reduction of LBP and limitations related to LBP through the mechanical action of lumbar flexion with a gentle distractive force. ~ MFR as per palpation (10 minutes) ~ Mobilization/SMT to Cervical, Thoracic, and/or Lumbar and S-I regions in lateral decubitus posture ~ Prone or supine thoracic mobilization/SMT ~ Prone hip flexor/quadriceps stretching as per palpation ~ Supine gluteal stretching as per palpation objectives 02/01/24 hypertonicity and tenderness R piriformis and lower lumbar paraspinals Restrictions lumbar Treatment: active/corrective Manual therapy MFR 8 min, lumbar and gluteals with flexion stretch to gluteals. CMT lumbar low force AT Treatment carried out today and well tolerated The prognosis,at this time,is fair to good Short term goals include improvement in excess 25% on regional disability questionnaire and/or NRS over the first 3-4 treatment visits. It was explained to the patient that resolution of soft tissue complaints through conservative management requires compliance with at home recommendations and avoidance of aggravating factors. Self-Care Recommendations: continue proper sit to stand. Patient plans to return to gym. Reviewed his plan of exercises and approve ~Patient encouraged to engage in activities such as a walking program with established goals to reduce fear-avoidance behaviors with regard to movement,and improve overall health and fitness. emphasis placed upon function over pain with effort made each day to remain active understanding that normal daily activities may temporarily increase pain experience but are not inherently injurious and should be explored to the extent possible. Provided patient with Yoga flyer ~ Activity such as Yoga encouraged to enhance relaxation, flexibility, posture, core stability, balance, and pain modulation. Plan: trial twice per week for 2 weeks. Visit 2 F/U this week Seek urgent care as needed. CMT: chiropractic manipulative therapy SMT: Spinal Manipulative Therapy F/D: Flexion Distraction MFR: Myofascial Release S-I: Sacroiliac MFTP: Myofascial Trigger Point NRS: Numeric Rating Scale N/T: Numbness/Tingling PIR: Post isometric relaxation /es/ LAUREN QUIGLEY D.C. CHIROPRACTOR Signed: 2024 15:00 LAUREN QUIGLEY [facility]
--- OUTSIDE RECORDS SUMMARY | 2024-03-20 14:03 | XMS_ITS ---
Author Name [facility] [place] Organization [place] Address [address] [place] [address] Care Team Providers Care Student Ministry Pastor Name Role Phone NERI MANCERA Primary Care [...] [employer] CHARAN Haque Mar 13, 2015 [id number] VERONICA BROWN RT PATIENT MEDICARE (WNR) MEDICARE (M) PART B Aug 12, 2007 PART B [id number] VERONICA BROWN RT PATIENT MEDICARE (WNR) MEDICARE (M) PART A Jan 12, 2004 PART A [id number] VERONICA BROWN RT PATIENT Selected Encounter This section includes the information on record at [place] for the Encounter. Date/Time Encounter Type Encounter Description Reason Pro vider Source Feb 22, 2024 01:45 PM Outpatient Encounter ADMIN PAT ACTIVTIES (MASNONCT) IHE Encounter Template Text not used by [place] Plan of Treatment: Future Appointments (+ 6 months) and Future Tests (+/- 45 days) The Plan of Treatment section includes future care activities for the patient [facility] [place] [facility] This section includes future appointments and future orders which are active, pending or scheduled. Future Appointments This section includes appointments that were scheduled to occur 6 months from the date of the Encounter, up to a maximum of 20 appointments. The data comes from all [facility]. Appointment Date/Time Appointment Type Appointme nt Facility Name Feb 29, 2024 09:00 AM AMBULATORY - MEDICINE [place] [place] [facility] Mar 08, 2024 10:30 AM AMBULATORY MEDICINE [place] [facility] [place] [facility] Mar 18, 2024 11:00 AM AMBULATORY MEDICINE [place] [facility] [place] [facility] Mar 25, 2024 10:00 AM AMBULATORY MEDICINE [place] [facility] [place] [facility] Apr 04, 2024 03:00 PM [facility] [place] [facility] Apr 05, 2024 11:00 AM AMBULATORY MEDICINE [place] [facility] [place] [facility] Apr 08, 2024 03:30 PM AMBULATORY MEDICINE [place] [facility] [place] [facility] Apr 23, 2024 01:00 PM AMBULATORY MEDICINE [place] [facility] [place] [facility] Apr 30, 2024 10:00 AM AMBULATORY MEDICINE [place] [facility] [place] [facility] May 03, 2024 01:00 PM AMBULATORY MEDICINE [place] C [facility] [place] [facility] Active, Pending, and Scheduled Orders This section includes a listing of several types of active, pending, and scheduled orders, including clinic medications orders, diagnostic test orders, procedure orders and consult orders; where the start date of the order is 45 days before the date of the Encounter or 45 days after the date of theEncounter. The data comes from all [facility]. Test Date/Time Test Type Test Details Facility Name Mar 11, 2024 12:00 AM Laboratory - Chemistry Order PO4 BLOOD (SST-SERUM[facility] [place] [facility] Mar 11, 2024 12:00 AM Laboratory - Chemistry Order PTH INTACT BLOOD (RED-PLAIN) [facility] Mar 11, 2024 12:00 AM Laboratory - Chemistry Order VITAMIN D (25-[place]) BLOOD (SST-SERUM) SP ONCE [facility] Mar 11, 2024 12:00 AM Laboratory - Chemistry Order MAGNESIUM BLOOD (SST-SERUM) [facility] Mar 11, 2024 12:00 AM Laboratory - Chemistry Order CALCIUM BLOOD (SST-SERUM) [facility] Mar 11, 2024 12:00 AM Laboratory - Chemistry Order MICROALBUMIN CREATININE RATIO PANEL URINE (RANDOM) [facility] Mar 11, 2024 12:00 AM Laboratory - Chemistry Order BASIC METABOLIC PANEL (non-fasting) BLOOD (SST-SERUM) [facility] Mar 11, 2024 12:00 AM Laboratory - Chemistry Order CBC BLOOD (LAV-BLOOD) [facility] Mar 11, 2024 12:00 AM Laboratory - Chemistry Order FERRITIN BLOOD (SST-SERUM) [facility] Mar 11, 2024 12:00 AM Laboratory - Chemistry Order IRON & TIBC PANEL BLOOD (SST-SERUM) [facility] Mar 11, 2024 12:00 AM Laboratory - Chemistry Order LIPID PANEL, NON FASTING BLOOD (SST-SERUM) [facility] Social History: Smoking Status (Most current) and Tobacco Use (All prior to encounter date) This section includes the most current, and the historical, smoking and tobacco- related health factors from the [place] facility where the Encounter took place. Current Smoking Status This section includes the most current smoking, or tobacco-related health factor, from the [place] facility where the Encounter took place. Date/Time Current Smoking Status Comment María Elena ity Apr 26, 2023 10:00 AM [place]-TOBACCO FORMER USER [facility] Tobacco Use History This section includes a history of the smoking, or tobacco-related health factors, that were collected on or before the date of the Encounter. The data comes from the [place] facility where the Encounter took place. Date/Time Smoking Status/Tobacco Use Comment F acility Apr 26, 2023 10:00 AM VA-TOBACCO QUIT 15 YRS OR MORE [place] [facility] [place] [facility] Mar 30, 2022 11:00 AM VA-TOBACCO FORMER USER [place] [facility] [place] [facility] Mar 30, 2022 11:00 AM VA-TOBACCO QUIT 15 YRS OR MORE [facility] [place] [facility] Mar 17, 2021 01:30 PM VA-TOBACCO FORMER USER [place] [facility] [place] [facility] Mar 17, 2021 01:30 PM VA-TOBACCO NEVER USED [place] [facility] [place] [facility] Mar 17, 2021 01:30 PM VA-TOBACCO QUIT 15 YRS OR MORE [facility] [place] [facility] Mar 31, 2020 10:30 AM VA-TOBACCO FORMER USER [facility] [place] [facility] Mar 31, 2020 10:30 AM VA-TOBACCO QUIT 15 YRS OR MORE [facility] [place] [facility] Nov 23, 2018 12:07 PM VA-TOBACCO FORMER USER [facility] [facility] Nov 23, 2018 12:07 PM VA-TOBACCO QUIT 15 YRS OR MORE [facility] [place] [facility] Nov 22, 2017 10:02 AM VA-TOBACCO NEVER USED [place] [facility] [place] [facility] Mar 14, 2017 09:31 AM LIFETIME NON-TOBACCO USER [facility] [place] [facility] Mar 01, 2016 02:51 PM LIFETIME NON-TOBACCO USER [facility] [place] [facility] Feb 10, 2015 09:31 AM QUIT TOBACCO USE > 7 YEARS AGO quit in 1964 [place] [facility] [place] [facility] Encounter Notes: All associated encounter notes This section contains the clinical notes associated to the Encounter. Date/Time Encounter Note(s) Provider Source Feb 22, 2024 01:45 PM PHARMACY NOTE: LOCAL TITLE: V1 PHARMACY CUSTOMER CARE MEDICATION RENEWAL STANDARD TITLE: PHARMACY NOTE DATE OF NOTE: FEB 22, 2024@13:45 ENTRY DATE: FEB 22, 2024@13:45:27 AUTHOR: ABELINO MANN COSIGNER: URGENCY: STATUS: COMPLETED V1 PHARMACY CUSTOMER CARE MEDICATION RENEWAL Has ADDENDA Date: Feb Division: [facility] referred by Pharmacy Call Center for medication renewal: Non-controlled/maintenanc e medication Medications requested: [id number] ACCU-CHEK GUIDE (GLUCOSE) TEST STRIP Defer to primary care provider To be picked up. Please review and renew if appropriate. *This note was generated by [facility] Pharm[facility] Customer Care. If you have any questions or need assistance, do not contact this author. Please refer all questions to your local, on-site pharmacy departments. /cas/ ABELINO MANN [employer] Machine Operator, [place]/Pharmacy Customer Care Signed: 02/22/2024 13:45 Receipt Acknowledged By: 02/22/2024 15:45 /cas/ Jeanette Garcia RN, BSN Primary Care 02/22/2024 14:06 /cas/ Neri Mancera MD Staff Physician 02/22/2024 ADDENDUM STATUS: COMPLETED Done. /cas/ Neri Mancera MD Staff Physician Signed: 02/22/2024 14:06 ABELINO MANN [place] [facility]
--- OUTSIDE RECORDS SUMMARY | 2024-03-20 14:03 | XMS_ITS ---
Author Name [facility] [place] [place] Organization [facility] [place] Address [address] [place] [address] Care Team Providers Care Assistant Women'S Tennis Coach Name Role Phone SOFI MANCERA Primary Care [...] JONELLE ROBLEDOEX CHARAN Fountain Mar 13, 2015 [id number] VERONICA BROWN RT PATIENT MEDICARE (WNR) MEDICARE (M) PART B Aug 12, 2007 PART B [id number] VERONICA BROWN RT PATIENT MEDICARE (WNR) MEDICARE (M) PART A Jan 12, 2004 PART A [id number] VERONICA BROWN RT PATIENT Selected Encounter This section includes the information on record at [place] for the Encounter. 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 Date/Time Primary/Secondary Diagnosis Diagnosis Name Provider Source Feb 23, 2024 08:19 AM PRIMARY Other low back pain LAUREN QUIGLEY [place] [facility] [place] [facility] Plan of Treatment: Future Appointments (+ 6 months) and Future Tests (+/- 45 days) The Plan of Treatment section includes future care activities for the patient from all [place] treatmentfacilities. This section includes future appointments and future orders which are active, pending or scheduled. Future Appointments This section includes appointments that were scheduled to occur 6 months from the date of the Encounter, up to a maximum of 20 appointments. The data comes from all [place] treatment facilities. Appointment Date/Time Appointment Type Appointme nt Facility Name Feb 09, 2024 02:00 PM AMBULATORY - MEDICINE [place] [facility] [place] [facility] Feb 12, 2024 11:00 AM AMBULATORY - MEDICINE [place] [facility] [place] [facility] Feb 15, 2024 01:00 PM AMBULATORY - MEDICINE [place] [facility] [place] [facility] Feb 22, 2024 01:00 PM AMBULATORY - MEDICINE [place] [facility] [place] [facility] Feb 29, 2024 09:00 AM AMBULATORY - MEDICINE [place] [facility] [place] [facility] Mar 08, 2024 10:30 AM AMBULATORY - MEDICINE [place] [facility] [place] [facility] Mar 18, 2024 11:00 AM AMBULATORY - MEDICINE [place] [facility] [place] [facility] Mar 25, 2024 10:00 AM AMBULATORY - MEDICINE [place] [facility] [place] [facility] Apr 04, 2024 03:00 PM AMBULATORY - MEDICINE [place] [facility] [place] [facility] Apr 05, 2024 11:00 AM AMBULATORY - MEDICINE [place] [facility] [place] [facility] Apr 08, 2024 03:30 PM AMBULATORY - MEDICINE [place] [facility] [place] [facility] Apr 23, 2024 01:00 PM AMBULATORY - MEDICINE [place] [facility] [place] [facility] Apr 30, 2024 10:00 AM AMBULATORY - MEDICINE [place] [facility] [place] [facility] May 03, 2024 01:00 PM AMBULATORY - MEDICINE [facility] Active, Pending, and Scheduled Orders This section includes a listing of several types of active, pending, and scheduled orders, including clinic medications orders, diagnostic test orders, procedure orders and consult orders; where the start date of the order is 45 days before the date of the Encounter or 45 days after the date of theEncounter. The data comes from all [place] treatment facilities. Test Date/Time Test Type Test Details Facility Name Mar 11, 2024 12:00 AM Laboratory - Chemistry Order PO4 BLOOD (SST-SERUM) [facility] Mar 11, 2024 12:00 AM Laboratory - Chemistry Order PTH INTACT BLOOD (RED-PLAIN) SERUM [facility] Mar 11, 2024 12:00 AM Laboratory - Chemistry Order VITAMIN D (25-OH) BLOOD (SST-SERUM) [facility] Mar 11, 2024 12:00 AM Laboratory - Chemistry Order CALCIUM BLOOD (SST-SERUM) [facility] Mar 11, 2024 12:00 AM Laboratory - Chemistry Order MICROALBUMIN CREATININE RATIO PANEL URINE (RANDOM) [facility] Mar 11, 2024 12:00 AM Laboratory - Chemistry Order MAGNESIUM BLOOD (SST-SERUM) [facility] Mar 11, 2024 12:00 AM Laboratory - Chemistry Order BASIC METABOLIC PANEL (non-fasting) BLOOD (SST-SERUM) [facility] Mar 11, 2024 12:00 AM Laboratory - Chemistry Order CBC BLOOD (LAV-BLOOD) [facility] Mar 11, 2024 12:00 AM Laboratory - Chemistry Order FERRITIN BLOOD (SST-SERUM) [facility] Mar 11, 2024 12:00 AM Laboratory - Chemistry Order IRON & TIBC PANEL BLOOD (SST-SERUM) [facility] Mar 11, 2024 12:00 AM Laboratory - Chemistry Order LIPID PANEL, NON FASTING BLOOD (SST-SERUM) [facility] Social History: Smoking Status (Most current) and Tobacco Use (All prior to encounter date) This section includes the most current, and the historical, smoking and tobacco- related health factors from the [place] facility where the Encounter took place. Current Smoking Status This section includes the most current smoking, or tobacco-related health factor, from the [place] facility where the Encounter took place. Date/Time Current Smoking Status Comment María Elena ity Apr 26, 2023 10:00 AM VA-TOBACCO FORMER USER [place] [facility] [place] [facility] Tobacco Use History This section includes a history of the smoking, or tobacco-related health factors, that were collected on or before the date of the Encounter. The data comes from the [place] facility where the Encounter took place. Date/Time Smoking Status/Tobacco Use Comment Gamaliel landin Apr 26, 2023 10:00 AM VA-TOBACCO QUIT 15 YRS OR MORE [facility] [place] [facility] Mar 30, 2022 11:00 AM VA-TOBACCO FORMER USER [facility] [place] [facility] Mar 30, 2022 11:00 AM VA-TOBACCO QUIT 15 YRS OR MORE [facility] [place] [facility] Mar 17, 2021 01:30 PM VA-TOBACCO FORMER USER [facility] [place] [facility] Mar 17, 2021 01:30 PM VA-TOBACCO NEVER USED [facility] [place] [facility] Mar 17, 2021 01:30 PM VA-TOBACCO QUIT 15 YRS OR MORE [facility] [place] [facility] Mar 31, 2020 10:30 AM VA-TOBACCO FORMER USER [facility] [place] [facility] Mar 31, 2020 10:30 AM VA-TOBACCO QUIT 15 YRS OR MORE [facility] [place] [facility] Nov 23, 2018 12:07 PM VA-TOBACCO FORMER USER [facility] [place] [facility] Nov 23, 2018 12:07 PM VA-TOBACCO QUIT 15 YRS OR MORE [facility] [place] [facility] Nov 22, 2017 10:02 AM VA-TOBACCO NEVER USED [facility] [place] [facility] Mar 14, 2017 09:31 AM LIFETIME NON-TOBACCO USER [facility] [place] [facility] Mar 01, 2016 02:51 PM LIFETIME NON-TOBACCO USER [facility] [place] [facility] Feb 10, 2015 09:31 AM QUIT TOBACCO USE > 7 YEARS AGO quit in 1964 [facility] Encounter Notes: All associated encounter notes This section contains the clinical notes associated to the Encounter. Date/Time Encounter Note(s) Provider Source Feb 06, 2024 02:58 PM CHIROPRACTIC NOTE: LOCAL TITLE: CHIROPRACTOR PROGRESS NOTE STANDARD TITLE: CHIROPRACTIC NOTE DATE OF NOTE: FEB 06, 2024@14:58 ENTRY DATE: FEB 06, 2024@14:59 AUTHOR: LAUREN QUIGLEY COSIGNER: URGENCY: STATUS: COMPLETED KEVINJACQUELYN Fountain is a 83 WHITE MALE with prior [...] Onset 01/29/2008 RE MCALLISTER Hyperlipidemia (SNOMED CT 23760673) 10/25/2021 SHANTHI MARSH Obesity (SNOMED CT 384373089) E66.8 01/26/2022 SHANTHI MARSH Essential hypertension 401.9 01/24/2007 RE MCALLISTER Gastroesophageal Reflux Disorder 53 01/24/2007 RE MCALLISTER Arthritis 716.90 01/24/2007 RE MCALLISTER Past Surgeries: knee arthroplasty Patient [facility] [place] [facility] and reports less low back pain since the last visit. At this time he C/O bilat low back pain that started this afternoon. He attributes it to stress from being very busy. He had to navigate a super busy grocery store. 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 He started exercises at home. He plans to join Yoga. 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 He has a membership to [employer] in [place] but no exercise for about ten days. [...] Supine gluteal stretching as per palpation objectives 02/06/24 hypertonicity and tenderness R piriformis and lower lumbar paraspinals Restrictions lumbar Treatment: active/corrective Manual therapy MFR 8 min, lumbar FD mechanical lulmbar traction w slight flexion, 6 min CMT lumbar low force AT Treatment carried out today and well tolerated with relief expressed The prognosis,at this time,is fair to good [...] twice per week for 2 weeks. Visit 3 F/U this week Seek urgent care as needed. CMT: chiropractic manipulative therapy SMT: Spinal Manipulative Therapy F/D: Flexion Distraction MFR: Myofascial Release S-I: Sacroiliac MFTP: Myofascial Trigger Point NRS: Numeric Rating Scale N/T: Numbness/Tingling PIR: Post isometric relaxation /es/ LAUREN QUIGLEY D.C. CHIROPRACTOR Signed: 02/06/2024 15:28 LAUREN QUIGLEY [facility]
--- OUTSIDE RECORDS SUMMARY | 2024-03-20 14:03 | XMS_ITS ---
Author Name [facility] of [facility] [place] [facility] [place] Organization [facility] [place] Address [address] [place] [address] Care Team Providers Care Make Up Editor Name Role Phone SOFI MANCERA Primary Care [...] [place] MEDICARE JONELLE Fountain Mar 13, 2015 [id number] VERONICA BROWN RT PATIENT MEDICARE (WNR) MEDICARE (M) PART B Aug 12, 2007 PART B [id number] VERONICA BROWN RT PATIENT MEDICARE (WNR) MEDICARE (M) PART A Jan 12, 2004 PART A [id number] VERONICA BROWN RT PATIENT Selected Encounter This section includes the information on record at [place] for the Encounter. 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 Date/Time Primary/Secondary Diagnosis Diagnosis Name Provider Source Feb 24, 2024 09:02 AM PRIMARY Other low back pain LAUREN QUIGLEY [place] [facility] [place] [facility] Plan of Treatment: Future Appointments (+ 6 months) and Future Tests (+/- 45 days) The Plan of Treatment section includes future care activities for the patient from all [place] [facility]. This section includes future appointments and future orders which are active, pending or scheduled. Future Appointments This section includes appointments that were scheduled to occur 6 months from the date of the Encounter, up to a maximum of 20 appointments. The data comes from all [place] treatment facilities. Appointment Date/Time Appointment Type Appointme nt Facility Name Feb 15, 2024 01:00 PM AMBULATORY - MEDICINE [place] [facility] [place] [facility] Feb 22, 2024 01:00 PM AMBULATORY MEDICINE [place] [facility] [place] [facility] Feb 29, 2024 09:00 AM AMBULATORY - MEDICINE [place] [facility] [place] [facility] Mar 08, 2024 10:30 AM AMBULATORY - MEDICINE [place] [facility] [place] [facility] Mar 18, 2024 11:00 AM AMBULATORY - MEDICINE [place] [facility] [place] [facility] Mar 25, 2024 10:00 AM AMBULATORY - MEDICINE [place] [facility] [place] [facility] Apr 04, 2024 03:00 PM AMBULATORY - MEDICINE [place] [facility] [place] [facility] Apr 05, 2024 11:00 AM AMBULATORY - MEDICINE [place] [facility] [place] [facility] Apr 08, 2024 03:30 PM AMBULATORY - MEDICINE [place] [facility] [place] [facility] Apr 23, 2024 01:00 PM AMBULATORY - MEDICINE [place] [facility] [place] [facility] Apr 30, 2024 10:00 AM AMBULATORY - MEDICINE [place] [facility] [place] [facility] May 03, 2024 01:00 PM AMBULATORY - MEDICINE [place] [facility] [place] [facility] Active, Pending, and Scheduled Orders This section includes a listing of several types of active, pending, and scheduled orders, including clinic medications orders, diagnostic test orders, procedure orders and consult orders; where the start date of the order is 45 days before the date of the Encounter or 45 days after the date of theEncounter. The data comes from all [place] treatment facilities. Test Date/Time Test Type Test Details Facility Name Mar 11, 2024 12:00 AM Laboratory - Chemistry Order PO4 BLOOD (SST-SERUM) [facility] Mar 11, 2024 12:00 AM Laboratory - Chemistry Order PTH INTACT BLOOD (RED-PLAIN) SER[facility] Mar 11, 2024 12:00 AM Laboratory - Chemistry Order VITAMIN D (25-OH) BLOOD (SST-SERUM) [facility] Mar 11, 2024 12:00 AM Laboratory - Chemistry Order CALCIUM BLOOD (SST-SERUM) [facility] Mar 11, 2024 12:00 AM Laboratory - Chemistry Order MAGNESIUM BLOOD (SST-SERUM) [facility] Mar 11, 2024 12:00 AM Laboratory - Chemistry Order MICROALBUMIN CREATININE RATIO PANEL URINE (RANDOM) [facility] Mar 11, 2024 12:00 AM Laboratory - Chemistry Order BASIC METABOLIC PANEL (non-fasting) BLOOD (SST-SERUM) [facility] Mar 11, 2024 12:00 AM Laboratory - Chemistry Order CBC BLOOD (LAV-BLOOD) [facility] Mar 11, 2024 12:00 AM Laboratory - Chemistry Order FERRITIN BLOOD (SST-SERUM) [facility] Mar 11, 2024 12:00 AM Laboratory - Chemistry Order IRON & TIBC PANEL BLOOD (SST-SERUM) [facility] Mar 11, 2024 12:00 AM Laboratory - Chemistry Order LIPID PANEL, NON FASTING BLOOD (SST-SERUM) [facility] Social History: Smoking Status (Most current) and [...] VA-TOBACCO FORMER USER [place] [facility] [place] [facility] Tobacco Use History This section includes a history of the smoking, or tobacco-related health factors, that were collected on or before the date of the Encounter. The data comes from the [place] facility where the Encounter took place. Date/Time Smoking Status/Tobacco Use Comment Gamaliel acshahbaz Apr 26, 2023 10:00 AM VA-TOBACCO QUIT 15 YRS OR MORE [facility] [place] [facility] Mar 30, 2022 11:00 AM VA-TOBACCO FORMER USER [place] [facility] [place] [facility] Mar 30, 2022 11:00 AM VA-TOBACCO QUIT 15 YRS OR MORE [facility] [place] [facility] Mar 17, 2021 01:30 PM VA-TOBACCO FORMER USER [place] [facility] [place] [facility] Mar 17, 2021 01:30 PM VA-TOBACCO NEVER USED [place] [facility] [place] [facility] Mar 17, 2021 01:30 PM VA-TOBACCO QUIT 15 YRS OR MORE [place] [facility] [place] [facility] Mar 31, 2020 10:30 AM VA-TOBACCO FORMER USER [place] [facility] [place] [facility] Mar 31, 2020 10:30 AM VA-TOBACCO QUIT 15 YRS OR MORE [place] [facility] [place] [facility] Nov 23, 2018 12:07 PM VA-TOBACCO FORMER USER [place] [facility] [place] [facility] Nov 23, 2018 12:07 PM VA-TOBACCO QUIT 15 YRS OR MORE [facility] [place] [facility] Nov 22, 2017 10:02 AM VA-TOBACCO NEVER USED [place] [facility] [place] [facility] Mar 14, 2017 09:31 AM LIFETIME NON-TOBACCO USER [place] [facility] [place] [facility] Mar 01, 2016 02:51 PM LIFETIME NON-TOBACCO USER [place] [facility] [place] [facility] Feb 10, 2015 09:31 AM QUIT TOBACCO USE > 7 YEARS AGO quit in 1964 [place] [facility] [place] [facility] Encounter Notes: All associated encounter notes This section contains the clinical notes associated to the Encounter. Date/Time Encounter Note(s) Provider Source Feb 12, 2024 10:56 AM CHIROPRACTIC NOTE: LOCAL TITLE: CHIROPRACTOR PROGRESS NOTE STANDARD TITLE: CHIROPRACTIC NOTE DATE OF NOTE: FEB 12, 2024@10:56 ENTRY DATE: FEB 12, 2024@10:57:04 AUTHOR: LAUREN QUIGLEY COSIGNER: URGENCY: STATUS: COMPLETED [...] Onset 01/29/2008 RE MCALLISTER Hyperlipidemia (SNOMED CT 85902062) 10/25/2021 SHANTHI MARSH Obesity (SNOMED CT 073419877) E66.8 01/26/2022 SHANTHI MARSH Essential hypertension 401.9 01/24/2007 RE MCALLISTER Gastroesophageal Reflux Disorder 53 01/24/2007 ER MCALLISTER Arthritis 716.90 01/24/2007 RE MCALLISTER Past Surgeries: knee arthroplasty Patient [facility] [place] [facility] and reports of continued improvement. He noticed the ability to stand and cut up turkey for 45 minutes and there was no pain. He/she describes the pain as deep ache [...] worse in am Prior treatment: Acupuncture Prior vision care associate: none Exercise/Activities: he tries to walk for 15 min per day but not consistent due to low back pain. He has a membership to [employer] in [place] but no exercise for about ten days. [...] Supine gluteal stretching as per palpation objectives 02/12/24 hypertonicity and tenderness R gluteals, piriformis Restrictions lumbar Treatment: active/corrective Manual therapy MFR 5 min, lumbar FD mechanical lulmbar traction w flexion and lateral bending, 8 min CMT lumbar low force AT Treatment [...] core stability, balance, and pain modulation. Plan: patient will call if needed. Will follow with Acupuncture Visit 5 F/U this week Seek urgent care as needed. CMT: chiropractic manipulative therapy SMT: Spinal Manipulative Therapy F/D: Flexion Distraction MFR: Myofascial Release S-I: Sacroiliac MFTP: Myofascial Trigger Point NRS: Numeric Rating Scale N/T: Numbness/Tingling PIR: Post isometric relaxation /es/ LAUREN QUGILEY D.C. CHIROPRACTOR Signed: 02/12/2024 11:27 LAUREN QUIGLEY [place] [facility]
--- OUTSIDE RECORDS SUMMARY | 2024-03-20 14:03 | XMS_ITS ---
Author Name [facility] [place] Address [address] [place] [address] Care Team Providers Care Systems Security Consultant Name Role Phone SOFI MANCERA Primary [...] Relationship to Policy [place] BC[place] [facility] Александр Mar 13, 2015 [id number] VERONICA BROWN RT PATIENT MEDICARE (WNR) MEDICARE (M) PART B Aug 12, 2007 PART B [id number] VERONICA BROWN RT PATIENT MEDICARE (WNR) MEDICARE (M) PART A Jan 12, 2004 PART A [id number] VERONICA BROWN RT PATIENT Selected Encounter This section includes the information on record at [place] for the Encounter. Date/Time Encounter Type Encounter Description Reason Provider Source Feb 15, 2024 01:00 PM EXERCISE CLASS HEALTH/WELLBEING [facility] ICD-10-CM Y93.42 Activity, yoga RHONA MURCIA CA IHE Encounter Template Text not used by [facility] Assessments - Encounter Diagnoses This section includes the primary and secondary diagnoses documented for the Encounter. Date/Time Primary/Secondary Diagnosis Diagnosis Name Provider Source Feb 16, 2024 07:33 AM PRIMARY Activity, KIKE Case [facility] [place] [facility] Plan of Treatment: Future Appointments (+ 6 months) and Future Tests (+/- 45 days) The Plan of Treatment section includes [facility] care activities for the [facility] [place] [facility] This section includes future appointments and future orders which are active, pending or scheduled. Future Appointments This section includes appointments that were scheduled to occur 6 months from the date of the Encounter, up to a maximum of 20 appointments. The data comes from all [place] treatment facilities. Appointment Date/Time Appointment Type Appointme nt Facility Name Feb 22, 2024 01:00 PM AMBULATORY - [place]ICINE [place] [facility] [place] [facility] Feb 29, 2024 09:00 AM AMBULATORY MEDICINE [place] [facility] [place] [facility] Mar 08, 2024 10:30 AM AMBULATORY - [place]ICINE [place] [facility] [place] [facility] Mar 18, 2024 11:00 AM AMBULATORY - MEDICINE [place] [facility] [place] [facility] Mar 25, 2024 10:00 AM AMBULATORY MEDICINE [place] [facility] [place] [facility] Apr 04, 2024 03:00 PM AMBULATORY MEDICINE [place] [facility] [place] [facility] Apr 05, 2024 11:00 AM AMBULATORY MEDICINE [place] [facility] [place] [facility] Apr 08, 2024 03:30 PM AMBULATORY - [place]ICINE [place] [facility] [place] [facility] Apr 23, 2024 01:00 PM AMBULATORY - MEDICINE [place] [facility] [place] [facility] Apr 30, 2024 10:00 AM AMBULATORY - MEDICINE [place] [facility] [place] [facility] May 03, 2024 01:00 PM AMBULATORY MEDICINE [place] [facility] [place] [facility] Active, Pending, and Scheduled Orders This section includes a listing of several types of active, pending, and scheduled orders, including clinic medications orders, diagnostic test orders, procedure orders and consult orders; where the start date of the order is 45 days before the date of the Encounter or 45 days after the date of theEncounter. The data comes from all [place] treatment facilities. Test Date/Time Test Type Test Details Facility Name Mar 11, 2024 12:00 AM Laboratory - Chemistry Order PTH INTACT BLOOD (RED-PLAIN) SERUM [facility] Mar 11, 2024 12:00 AM Laboratory - Chemistry Order PO4 BLOOD (SST-SERUM) [facility] Mar 11, 2024 12:00 AM Laboratory - Chemistry Order VITAMIN D (25-OH) BLOOD (SST-SERUM) [facility] Mar 11, 2024 12:00 AM Laboratory - Chemistry Order CALCIUM BLOOD (SST-SERUM) [facility] Mar 11, 2024 12:00 AM Laboratory - Chemistry Order MAGNESIUM BLOOD (SST-SERUM) [facility] Mar 11, 2024 12:00 AM Laboratory - Chemistry Order FERRITIN BLOOD (SST-SERUM) [facility] Mar 11, 2024 12:00 AM Laboratory - Chemistry Order IRON & TIBC PANEL BLOOD (SST-SERUM) [facility] Mar 11, 2024 12:00 AM Laboratory - Chemistry Order LIPID PANEL, NON FASTING BLOOD (SST-SERUM) [facility] Mar 11, 2024 12:00 AM Laboratory - Chemistry Order MICROALBUMIN CREATININE RATIO PANEL URINE (RANDOM) [facility] Mar 11, 2024 12:00 AM Laboratory - Chemistry Order BASIC METABOLIC PANEL (non-fasting) BLOOD (SST-SERUM) [facility] Mar 11, 2024 12:00 AM Laboratory - Chemistry Order CBC BLOOD (LAV-BLOOD) [facility] Social History: Smoking Status (Most current) [...] VA-TOBACCO FORMER USER [place] [facility] [place] [facility] Tobacco Use History This section includes a history of the smoking, or tobacco-related health factors, that were collected on or before the date of the Encounter. The data comes from the [place] facility where the Encounter took place. Date/Time Smoking Status/Tobacco Use Comment Gamaliel acshahbaz Apr 26, 2023 10:00 AM VA-TOBACCO QUIT 15 YRS OR MORE [place] [facility] [place] [facility] Mar 30, 2022 11:00 AM VA-TOBACCO FORMER USER [place] [facility] [place] [facility] Mar 30, 2022 11:00 AM VA-TOBACCO QUIT 15 YRS OR MORE [place] [facility] [place] [facility] Mar 17, 2021 01:30 PM VA-TOBACCO FORMER USER [place] [facility] [facility] Mar 17, 2021 01:30 PM VA-TOBACCO NEVER USED [place] [facility] [place] [facility] Mar 17, 2021 01:30 PM VA-TOBACCO QUIT 15 YRS OR MORE [place] [facility] [place] [facility] Mar 31, 2020 10:30 AM VA-TOBACCO FORMER USER [place] [facility] [place] [facility] Mar 31, 2020 10:30 AM VA-TOBACCO QUIT 15 YRS OR MORE [facility] [facility] Nov 23, 2018 12:07 PM VA-TOBACCO FORMER USER [place] [facility] [place] [facility] Nov 23, 2018 12:07 PM VA-TOBACCO QUIT 15 YRS OR MORE [facility] [facility] Nov 22, 2017 10:02 AM VA-TOBACCO NEVER USED [place] [facility] [place] [facility] Mar 14, 2017 09:31 AM LIFETIME NON-TOBACCO USER [place] [facility] [facility] Mar 01, 2016 02:51 PM LIFETIME NON-TOBACCO USER [place] [facility] [facility] Feb 10, 2015 09:31 AM QUIT TOBACCO USE > 7 YEARS AGO quit in 1963 [place] [facility] [place] [facility] Encounter Notes: All associated encounter notes This section contains the clinical notes associated to the Encounter. Date/Time Encounter Note(s) Provider Source Feb 16, 2024 10:53 AM RECREATIONAL THERA PY CONSULT: LOCAL TITLE: CONSULT REPORT/YOGA STANDARD TITLE: RECREATIONAL THERAPY CONSULT DATE OF NOTE: FEB 16, 2024@10:53 ENTRY DATE: FEB 16, 2024@10:53:34 AUTHOR: MARIOLA MURCIA COSIGNER: URGENCY: STATUS: COMPLETED attended Group Yoga on 02/15/2024. Please see Yoga Wellbeing Note. /cas/ FINN [id number] French [employer] Signed: 02/16/2024 10:54 MARIOLA MURCIA [place] [facility] [place] [facility] Feb 15, 2024 01:00 PM RECREATIONAL THERA PY NOTE: LOCAL TITLE: YOGA WELLBEING STANDARD TITLE: RECREATIONAL THERAPY NOTE DATE OF NOTE: FEB 15, 2024@13:00 ENTRY DATE: FEB 16, 2024@07:31:26 AUTHOR: MARIOLA MURCIA COSIGNER: URGENCY: STATUS: COMPLETED Group Yoga Class Total time: 60 minutes Class Focus: Breath awareness, mindful movement, relaxation, and gratitude to balance the nervous system and enhance overall well-being. The Practice: Three-part breath pranayama to help utilize more of the lungs and to balance the nervous system; postures that included, but were not limited to, moving warm-up, half sun salutation, sun salutation variations, tree, triangle pose, wide leg forward bend variations, [place] 2, extended side angle pose, [place] 1, plank, cobra, locust, downward facing dog, wisdom pose, contralateral limb raises, head to knee pose, bridge, reclined twist, knees to chest; Systematic Relaxation; and Gratitude. Modifications were geared toward the 's individual needs and preferences. Yvrose was one of five participants in Group Yoga, fully engaging in all the postures offered and modifying according to individual needs. used yoga blocks and a yoga belt for support as needed and used breath as a tool to enhance practice. Yvrose will return to class as personal scheduling allows. This session was the Lutz's first yoga class. He selected to use a chair for support in postures that required coming to the floor. He reported enjoying the class and appreciated the modifications offered. Lutz intends to return to class as often as he can. /cas/ FINN [id number] French Teacher Signed: 02/16/2024 07:38 MARIOLA MURCIA [facility] W[facility]entin MARTEL
--- OUTSIDE RECORDS SUMMARY | 2024-03-20 14:03 | XMS_ITS ---
Author Name [facility] [place] Address [address] [place] [address] Care Team Providers Care Customer Acquisition Manager Name Role Phone SOFI MANCERA Primary [...] [place] MEDICARE JONELLE Fountain Mar 13, 2015 [id number] VERONICA BROWN RT PATIENT MEDICARE (WNR) MEDICARE (M) PART B Aug 12, 2007 PART B [id number] VERONICA BROWN RT PATIENT MEDICARE (WNR) MEDICARE (M) PART A Jan 12, 2004 PART A [id number] VERONICA BROWN RT PATIENT Selected Encounter This section includes the information on record at [place] for the Encounter. Date/Time Encounter Type Encounter Description Reason Provider Source Feb 09, 2024 02:00 PM MECHANICAL TRACTION THERAPY GEOPHYSICAL MANAGER ICD-10-CM M54.59 Other low back pain LAUREN QUIGLEY Encounter Template Text not used by VA Assessments - Encounter Diagnoses This section includes the primary and secondary diagnoses documented for the Encounter. Date/Time Primary/Secondary Diagnosis Diagnosis Name Provider Source Feb 26, 2024 10:52 AM PRIMARY Other low back pain LAUREN QUIGLEY [place] [facility] [place] [facility] Plan of Treatment: Future Appointments [...] Appointment Type Appointme nt Facility Name Feb 12, 2024 11:00 AM AMBULATORY - [place]ICINE [place] [facility] Feb 15, 2024 01:00 PM AM[place]ORY - [place]IC[place] [facility] Feb 22, 2024 01:00 PM AM[place]ORY [place]IC[place] [facility] Feb 29, 2024 09:00 AM AM[place]ORY [place]ICINE [place] [facility] Mar 08, 2024 10:30 AM AMBULATORY - [place]ICINE [place] [facility] Mar 18, 2024 11:00 AM AM[place]ULATORY - [place]ICINE [place] [facility] Mar 25, 2024 10:00 AM AM[place]ULATORY - [place]ICINE [place] [facility] Apr 04, 2024 03:00 PM AMBULATORY - [place]ICINE [place] [facility] Apr 05, 2024 11:00 AM AM[place]ULATORY - [place]ICINE [place] [facility] Apr 08, 2024 03:30 PM AM[place]UL[place]ORY [place]ICINE [place] [facility] Apr 23, 2024 01:00 PM AM[place]ORY [place]ICINE [place] [facility] Apr 30, 2024 10:00 AM AM[place]ORY - [place]ICINE [place] [facility] May 03, 2024 01:00 PM AMBULATORY - [place]ICINE [place] [facility] Active, Pending, and Scheduled Orders This section includes a listing of several types of active, pending, and scheduled orders, including clinic medications orders, diagnostic test orders, procedure orders and consult orders; where the start date of the order is 45 days before the date of the Encounter or 45 days after the date of theEncounter. The data comes from all [facility] facilities. Test Date/Time Test Type Test Details Facility Name Mar 11, 2024 12:00 AM Laboratory - Chemistry Order PTH INTACT BLOOD (RED-PLAIN) SERUM [facility] Mar 11, 2024 12:00 AM Laboratory - Chemistry Order PO4 BLOOD (SST-SERUM) [facility] Mar 11, 2024 12:00 AM Laboratory - Chemistry Order VITAMIN D (25-OH) BLOOD (SST-SERUM) [facility] Mar 11, 2024 12:00 AM Laboratory - Chemistry Order CALCIUM BLOOD (SST-SERUM) [facility] Mar 11, 2024 12:00 AM Laboratory - Chemistry Order MAGNESIUM BLOOD (SST-SERUM) [facility] Mar 11, 2024 12:00 AM Laboratory - Chemistry Order MICROALBUMIN CREATININE RATIO PANEL URINE (RANDOM) [facility] Mar 11, 2024 12:00 AM Laboratory - Chemistry Order BASIC METABOLIC PANEL (non-fasting) BLOOD (SST-SERUM) [facility] Mar 11, 2024 12:00 AM Laboratory - Chemistry Order CBC BLOOD (LAV-BLOOD) [facility] Mar 11, 2024 12:00 AM Laboratory - Chemistry Order FERRITIN BLOOD (SST-SERUM) [facility] Mar 11, 2024 12:00 AM Laboratory - Chemistry Order LIPID PANEL, NON FASTING BLOOD (SST-SERUM) [facility] Mar 11, 2024 12:00 AM Laboratory - Chemistry Order IRON & TIBC PANEL BLOOD (SST-SERUM) [facility] Social History: Smoking Status (Most current) [...] VA-TOBACCO FORMER USER [place] [facility] [place] [facility] Tobacco Use History This section includes a history of the smoking, or tobacco-related health factors, that were collected on or before the date of the Encounter. The data comes from the [place] facility where the Encounter took place. Date/Time Smoking Status/Tobacco Use Comment Gamaliel landin Apr 26, 2023 10:00 AM VA-TOBACCO QUIT 15 YRS OR MORE [place] [facility] [place] [facility] Mar 30, 2022 11:00 AM VA-TOBACCO FORMER USER [place] [facility] [place] [facility] Mar 30, 2022 11:00 AM VA-TOBACCO QUIT 15 YRS OR MORE [place] [facility] [place] [facility] Mar 17, 2021 01:30 PM VA-TOBACCO FORMER USER [place] [facility] [place] [facility] Mar 17, 2021 01:30 PM VA-TOBACCO NEVER USED [place] [facility] [place] [facility] Mar 17, 2021 01:30 PM VA-TOBACCO QUIT 15 YRS OR MORE [place] [facility] [place] [facility] Mar 31, 2020 10:30 AM VA-TOBACCO FORMER USER [place] [facility] [place] [facility] Mar 31, 2020 10:30 AM VA-TOBACCO QUIT 15 YRS OR MORE [place] [facility] [place] [facility] Nov 23, 2018 12:07 PM VA-TOBACCO FORMER USER [place] [facility] [place] [facility] Nov 23, 2018 12:07 PM VA-TOBACCO QUIT 15 YRS OR MORE [place] [facility] [place] [facility] Nov 22, 2017 10:02 AM VA-TOBACCO NEVER USED [place] [facility] [place] [facility] Mar 14, 2017 09:31 AM LIFETIME NON-TOBACCO USER [place] [facility] [place] [facility] Mar 01, 2016 02:51 PM LIFETIME NON-TOBACCO USER [place] [facility] [place] [facility] Feb 10, 2015 09:31 AM QUIT TOBACCO USE > 7 YEARS AGO quit in 1964 [place] [facility] [place] [facility] Encounter Notes: All associated encounter notes This section contains the clinical notes associated to the Encounter. Date/Time Encounter Note(s) Provider Source Feb 09, 2024 02:01 PM CHIROPRACTIC NOTE: LOCAL TITLE: CHIROPRACTOR PROGRESS NOTE STANDARD TITLE: CHIROPRACTIC NOTE DATE OF NOTE: FEB 09, 2024@14:01 ENTRY DATE: FEB 09, 2024@14:01:56 AUTHOR: LAUREN QUIGLEY COSIGNER: URGENCY: STATUS: COMPLETED [...] Onset 01/29/2008 RE MCALLISTER Hyperlipidemia (SNOMED CT 68907284) 10/25/2021 SHANTHI MARSH Obesity (SNOMED CT 612649804) E66.8 01/26/2022 SHANTHI MARSH Essential hypertension 401.9 01/24/2007 RE MCALLISTER Gastroesophageal Reflux Disorder 53 01/24/2007 RE MCALLISTER Arthritis 716.90 01/24/2007 RE MCALLISTER Past Surgeries: knee arthroplasty Patient presents [facility] and reports less low back pain since the last visit. He estimates feeling 60-70% better since intial visit. He started basic home exercises. There is some R lateral hip pain with Bi lateral bending. No pain in right posterior lateral thigh. 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 He has a membership to [employer] in [place] but no exercise for about ten days. [...] Supine gluteal stretching as per palpation objectives 02/09/24 hypertonicity and tenderness R gluteals, piriformis Restrictions [...] twice per week for 2 weeks. Visit 4 F/U this week Seek urgent care as needed. CMT: chiropractic manipulative therapy SMT: Spinal Manipulative Therapy F/D: Flexion Distraction MFR: Myofascial Release S-I: Sacroiliac MFTP: Myofascial Trigger Point NRS: Numeric Rating Scale N/T: Numbness/Tingling PIR: Post isometric relaxation /es/ LAUREN QUIGLEY D.C. CHIROPRACTOR Signed: 02/09/2024 14:30 LAUREN QUIGLEY [facility]
--- OUTSIDE RECORDS SUMMARY | 2024-03-20 14:03 | XMS_ITS | Encounter Summary ---
Author Name [facility] [place] Address [address] [place] [address] Care Team Providers Care Chef Under Name Role Phone SOFI MANCERA Primary Care [...] Policy [place] JONELLE DIAZ [facility] Александр Mar 13, 2015 [id number] VERONICA BROWN RT PATIENT MEDICARE (WNR) MEDICARE (M) PART B Aug 12, 2007 PART B [id number] VERONICA BROWN RT PATIENT MEDICARE (WNR) MEDICARE (M) PART A Jan 12, 2004 PART A [id number] VERONICA BROWN RT PATIENT Selected Encounter This section includes the information on record at [place] for the Encounter. Date/Time Encounter Type Encounter Description Reason Provider Source Feb 05, 2024 11:00 AM INFRARED THERAPY CI[facility] TREATMENT ICD-10-CM M54.50 Low back pain, unspecified BRICE WALSH IHE Encounter Template Text not used by [facility] Assessments - Encounter Diagnoses This section includes the primary and secondary diagnoses documented for the Encounter. Date/Time Primary/Secondary Diagnosis Diagnosis Name Provider Source Feb 20, 2024 05:04 PM PRIMARY Low back pain, unspecified BRICE WALSH [place] [facility] [place] [facility] Feb 20, 2024 05:04 PM SECONDARY Pain in right hip BRICE WALSH [place] [facility] [place] [facility] Plan of Treatment: Future Appointments (+ 6 months) and Future Tests (+/- 45 days) The Plan of Treatment section includes future care activities for the patient from all [place] [facility]. This section includes future appointments and future orders which are active, pending or scheduled. Future Appointments This section includes appointments that were scheduled to occur 6 months from the date of the Encounter, up to a maximum of 20 appointments. The data comes from all [place] treatment facilities. Appointment Date/Time Appointment Type Appointme nt Facility Name Feb 06, 2024 03:00 PM AMBULATORY - MEDICINE [place] [facility] [place] [facility] Feb 09, 2024 02:00 PM AMBULATORY - MEDICINE [place] [facility] [place] [facility] Feb 12, 2024 11:00 AM AMBULATORY - MEDICINE [place] [facility] [place] [facility] Feb 15, 2024 01:00 PM AMBULATORY - MEDICINE [place] [facility] [place] [facility] Feb 22, 2024 01:00 PM AMBULATORY - MEDICINE [place] [facility] [place] [facility] Feb 29, 2024 09:00 AM AMBULATORY - MEDICINE [place] [facility] [place] [facility] Mar 08, 2024 10:30 AM AMBULATORY - MEDICINE [place] [facility] [place] [facility] Mar 18, 2024 11:00 AM AMBULATORY - MEDICINE [place] [facility] [place] [facility] Mar 25, 2024 10:00 AM AMBULATORY - MEDICINE [place] [facility] [place] [facility] Apr 04, 2024 03:00 PM AMBULATORY - MEDICINE [place] [facility] [place] [facility] Apr 05, 2024 11:00 AM AMBULATORY - MEDICINE [place] [facility] [place] [facility] Apr 08, 2024 03:30 PM AMBULATORY - MEDICINE [place] [facility] [place] [facility] Apr 23, 2024 01:00 PM [facility] [place] [facility] Apr 30, 2024 10:00 AM AMBULATORY - MEDICINE [facility] May 03, 2024 01:00 PM AMBULATORY - MEDICINE [facility] NTRL TRN [facility] Active, Pending, and Scheduled Orders This section includes a listing of several types of active, pending, and scheduled orders, including clinic medications orders, diagnostic test orders, procedure orders and consult orders; where the start date of the order is 45 days before the date of the Encounter or 45 days after the date of theEncounter. The data comes from all [place] treatment facilities. Test Date/Time Test Type Test Details Facility Name Mar 11, 2024 12:00 AM Laboratory - Chemistry Order PTH INTACT BLOOD (RED-PLAIN) [facility] Mar 11, 2024 12:00 AM Laboratory - Chemistry Order PO4 BLOOD (SST-SERUM) [facility] Mar 11, 2024 12:00 AM Laboratory - Chemistry Order VITAMIN D (25-OH) BLOOD (SST-SERUM) [facility] Mar 11, 2024 12:00 AM Laboratory - Chemistry Order CALCIUM BLOOD (SST-SERUM) [facility] Mar 11, 2024 12:00 AM Laboratory - Chemistry Order MAGNESIUM BLOOD (SST-SERUM) [facility] Mar 11, 2024 12:00 AM Laboratory - Chemistry Order MICROALBUMIN CREATININE RATIO PANEL URINE (RANDOM) [facility] Mar 11, 2024 12:00 AM Laboratory - Chemistry Order BASIC METABOLIC PANEL (non-fasting) BLOOD (SST-SERUM) [facility] Mar 11, 2024 12:00 AM Laboratory - Chemistry Order CBC BLOOD (LAV-BLOOD) [facility] Mar 11, 2024 12:00 AM Laboratory - Chemistry Order FERRITIN BLOOD (SST-SERUM) [facility] Mar 11, 2024 12:00 AM Laboratory - Chemistry Order LIPID PANEL, NON FASTING BLOOD (SST-SERUM) SP [facility] [place] [facility] Mar 11, 2024 12:00 AM Laboratory - Chemistry Order IRON & TIBC PANEL BLOOD (SST-SERUM) SP [place] [facility] [place] [facility] Social History: Smoking Status (Most current) and Tobacco Use (All prior to encounter date) This section includes the most current, and the historical, smoking and tobacco- related health factors from the [place] facility where the Encounter took place. Current Smoking Status This section includes the most current smoking, or tobacco-related health factor, from the [place] facility where the Encounter took place. Date/Time Current Smoking Status Comment Facil ity Apr 26, 2023 10:00 AM VA-TOBACCO FORMER USER [place] [facility] [place] [facility] Tobacco Use History This section includes a history of the smoking, or tobacco-related health factors, that were collected on or before the date of the Encounter. The data comes from the [place] facility where the Encounter took place. Date/Time Smoking Status/Tobacco Use Comment F acility Apr 26, 2023 10:00 AM VA-TOBACCO QUIT 15 YRS OR MORE [facility] [place] [facility] Mar 30, 2022 11:00 AM VA-TOBACCO FORMER USER [facility] [place] [facility] Mar 30, 2022 11:00 AM VA-TOBACCO QUIT 15 YRS OR MORE [facility] [place] [facility] Mar 17, 2021 01:30 PM VA-TOBACCO FORMER USER [facility] [place] [facility] Mar 17, 2021 01:30 PM VA-TOBACCO NEVER USED [place] [facility] [place] [facility] Mar 17, 2021 01:30 PM VA-TOBACCO QUIT 15 YRS OR MORE [facility] [place] [facility] Mar 31, 2020 10:30 AM VA-TOBACCO FORMER USER [facility] [place] [facility] Mar 31, 2020 10:30 AM VA-TOBACCO QUIT 15 YRS OR MORE [facility] [place] [facility] Nov 23, 2018 12:07 PM VA-TOBACCO FORMER USER [facility] [place] [facility] Nov 23, 2018 12:07 PM VA-TOBACCO QUIT 15 YRS OR MORE [facility] [place] [facility] Nov 22, 2017 10:02 AM VA-TOBACCO NEVER USED [facility] [place] [facility] Mar 14, 2017 09:31 AM LIFETIME [facility]ACCO [facility] [place] [facility] Mar 01, 2016 02:51 PM LIFETIME NON-TOBACCO [facility] [place] [facility] Feb 10, 2015 09:31 AM QUIT TOBACCO USE > 7 YEARS AGO quit in 1964 [facility] Encounter Notes: All associated encounter notes This section contains the clinical notes associated to the Encounter. Date/Time Encounter Note(s) Provider Source Feb 05, 2024 11:39 AM ACUPUNCTURE NOTE: LOCAL TITLE: ACUPUNCTURE TREATMENT STANDARD TITLE: ACUPUNCTURE NOTE DATE OF NOTE: FEB 05, 2024@11:39 ENTRY DATE: FEB 05, 2024@11:39:28 AUTHOR: DAE WALSH EXP COSIGNER: URGENCY: STATUS: COMPLETED JACQUELYN BROWN is a 84 WHITE MALE who presents with Back pain [...] MCALLISTER Arthritis 716.90 01/24/2007 RE MCALLISTER Date Jan CC / HPI - presents with Hx [...] at 1/3 output. BM's regular no problems. Venango reports again that he gets a bit over a month of pain relief in his right hip and low back post acupuncture. 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 Venango has a 6-7/10 pain level today. Discussed other treatment options with and [place] reports that he has not been getting enough exercise recently and feels demotivated. Venango is open to trying yoga and states that having a structured class might give him the motivation to participate more active care. OBJECTIVE General: . Patient in no apparent [...] cane ASSESSMENT / SUMMARY Affected Channel: UB, TAMIR, GB Medical Decision Making (MDM) * [...] ]Pyonex Needle: remove prior to bathing per dial maker INFORMED CONSENT: Oral Consent obtained on Jan The patient was positioned comfortably. Oral consent [...] is required /cas/ DAE WALSH LA.C DIPL.AC TAX EXAMINING TECHNICIAN Signed: 02/05/2024 16:05 DAE WALSH CNTRL WSTRN [facility]
--- OUTSIDE RECORDS SUMMARY | 2024-03-20 14:03 | XMS_ITS | Encounter Summary ---
Author Name [facility] [place] Organization [place] Address [address] [place] [address] Care Team Providers Care Evaluation Engineer Name Role Phone SOFI MANCERA Primary [...] [place] BC[place] MED[place] [facility] E Mar 13, 2015 [id number] VERONICA BROWN RT PATIENT MEDICARE (WNR) MEDICARE (M) PART B Aug 12, 2007 PART B [id number] VERONICA BROWN RT PATIENT MEDICARE (WNR) MEDICARE (M) PART A Jan 12, 2004 PART A [id number] VERONICA BROWN RT PATIENT Selected Encounter This section includes the information on record at [place] for the Encounter. 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 Date/Time Primary/Secondary Diagnosis Diagnosis Name Provider Source Jan 29, 2024 10:30 AM PRIMARY Other low back pain LAUREN QUIGLEY [place] [facility] [place] [facility] Plan of Treatment: Future Appointments (+ 6 months) and Future Tests (+/- 45 days) The Plan of Treatment section includes future care activities for the patient from all [place] treatmentfacilities. This section includes future appointments and future orders which are active, pending or scheduled. Future Appointments This section includes appointments that were scheduled to occur 6 months from the date of the Encounter, up to a maximum of 20 appointments. The data comes from all [place] treatment facilities. Appointment Date/Time Appointment Type Appointme nt Facility Name Jan 30, 2024 03:30 PM AMBULATORY - MEDICINE [place] C [facility] [place] [facility] 2024 02:30 PM AMBULATORY - MEDICINE [place] C [facility] [place] [facility] Feb 05, 2024 11:00 AM AMBULATORY - MEDICINE [place] C [facility] [place] [facility] Feb 06, 2024 03:00 PM AMBULATORY - MEDICINE [place] C [facility] [place] [facility] Feb 09, 2024 02:00 PM AMBULATORY - MEDICINE AR C [facility]TR[facility] [place] [facility] Feb 12, 2024 11:00 AM AMBULATORY - MEDICINE [place] C [facility] [place] [facility] Feb 15, 2024 01:00 PM AMBULATORY - MEDICINE AR C [facility]TR[facility] [place] [facility] Feb 22, 2024 01:00 PM AMBULATORY - MEDICINE [place] C [facility] [place] [facility] Feb 29, 2024 09:00 AM AMBULATORY - MEDICINE AR C [facility]TRL [facility] [facility] Mar 08, 2024 10:30 AM AMBULATORY - MEDICINE [place] C [facility] [place] [facility] Mar 18, 2024 11:00 AM AMBULATORY - MEDICINE [place] C [facility] [place] [facility] Mar 25, 2024 10:00 AM AMBULATORY - MEDICINE [place] C [facility] [place] [facility] Apr 04, 2024 03:00 PM AMBULATORY - MEDICINE [place] C [facility] [facility] Apr 05, 2024 11:00 AM AMBULATORY - MEDICINE [place] C [facility]TR[facility] [facility] Apr 08, 2024 03:30 PM [facility] Apr 23, 2024 01:00 PM [facility] Apr 30, 2024 10:00 AM [facility] May 03, 2024 01:00 PM AMBULATORY - MEDICINE [facility] NTRL [facility] Active, Pending, and Scheduled Orders This section includes a listing of several types of active, pending, and scheduled orders, including clinic medications orders, diagnostic test orders, procedure orders and consult orders; where the start date of the order is 45 days before the date of the Encounter or 45 days after the date of theEncounter. The data comes from all [place] treatment facilities. Test Date/Time Test Type Test Details Facility Name Mar 11, 2024 12:00 AM Laboratory - Chemistry Order PO4 BLOOD (SST-SERUM) [facility] Mar 11, 2024 12:00 AM Laboratory - Chemistry Order PTH INTACT BLOOD (RED-PLAIN) [facility] Mar 11, 2024 12:00 AM Laboratory - Chemistry Order VITAMIN D (25-OH) BLOOD (SST-SERUM) [facility] Mar 11, 2024 12:00 AM Laboratory - Chemistry Order [facility]CI[facility]LO[facility] ([facility]UM) [facility] Mar 11, 2024 12:00 AM Laboratory - Chemistry Order MICROALBUMIN CREATININE RATIO PANEL URINE (RANDOM) [facility] Mar 11, 2024 12:00 AM Laboratory - Chemistry Order MAGNESIUM BLOOD (SST-SERUM) [facility] Mar 11, 2024 12:00 AM Laboratory - Chemistry Order BASIC METABOLIC PANEL (non-fasting) BLOOD (SST-SERUM) [facility] Mar 11, 2024 12:00 AM Laboratory - Chemistry Order CBC BLOOD (LAV-BLOOD) [facility] Mar 11, 2024 12:00 AM Laboratory - Chemistry Order FERRITIN BLOOD (SST-SERUM) [facility] [place] [facility] Mar 11, 2024 12:00 AM Laboratory - Chemistry Order IRON & TIBC PANEL BLOOD (SST-SERUM) SP [place] [facility]TRL [place] [place] [facility] Mar 11, 2024 12:00 AM Laboratory - Chemistry Order LIPID PANEL, NON FASTING BLOOD (SST-SERUM) SP [place] [facility]L [place] [facility] Social History: Smoking Status (Most current) and Tobacco Use (All prior to encounter date) This section includes the most current, and the historical, smoking and tobacco- related health factors from the [place] facility where the Encounter took place. Current Smoking Status This section includes the most current smoking, or tobacco-related health factor, from the [place] facility where the Encounter took place. Date/Time Current Smoking Status Comment Facil ity Apr 26, 2023 10:00 AM VA-TOBACCO FORMER USER [place] [facility]TRL [place] [facility] Tobacco Use History This section includes a history of the smoking, or tobacco-related health factors, that were collected on or before the date of the Encounter. The data comes from the [place] facility where the Encounter took place. Date/Time Smoking Status/Tobacco Use Comment F acility Apr 26, 2023 10:00 AM VA-TOBACCO QUIT 15 YRS OR MORE [facility] [place] [place] [facility] Mar 30, 2022 11:00 AM VA-TOBACCO FORMER USER [facility] [place] [facility] Mar 30, 2022 11:00 AM VA-TOBACCO QUIT 15 YRS OR MORE [facility] [place] [facility] Mar 17, 2021 01:30 PM VA-TOBACCO FORMER USER [facility] [place] [facility] Mar 17, 2021 01:30 PM VA-TOBACCO NEVER USED VA [facility] [facility] Mar 17, 2021 01:30 PM VA-TOBACCO QUIT 15 YRS OR MORE [facility] [place] [facility] Mar 31, 2020 10:30 AM VA-TOBACCO FORMER USER [facility] [place] [facility] Mar 31, 2020 10:30 AM VA-TOBACCO QUIT 15 YRS OR MORE [facility] [place] [facility] Nov 23, 2018 12:07 PM VA-TOBACCO FORMER USER [facility] [place] [facility] Nov 23, 2018 12:07 PM VA-TOBACCO QUIT [address] [facility] Nov 22, 2017 10:02 AM VA-TOBACCO NEVER USED [facility] Mar 14, 2017 09:31 AM LIFETIME NON-TOBACCO [facility]ER [facility] Mar 01, 2016 02:51 PM LIFETIME NON-TOBACCO [facility]ER [facility] Feb 10, 2015 09:31 AM QUIT TOBACCO USE > 7 YEARS AGO quit in 1964 [facility] Encounter Notes: All associated encounter notes This section contains the clinical notes associated to the Encounter. Date/Time Encounter Note(s) Provider Source Jan 29, 2024 10:29 AM CHIROPRACTIC CONSU LT: [facility] TITLE: CONSULT REPORT/CHIROPRACTOR STANDARD TITLE: CHIROPRACTIC CONSULT DATE OF NOTE: JAN 29, 2024@10:29 ENTRY DATE: JAN 29, 2024@10:29:32 AUTHOR: LAUREN QUIGLEY COSIGNER: URGENCY: STATUS: JACQUELYN PERRY is a 83 WHITE MALE with prior [...] Onset 01/29/2008 RE MCALLISTER Hyperlipidemia (SNOMED CT 95975817) 10/25/2021 MARSHSHANTHI Obesity (SNOMED CT 733024133) E66.8 01/26/2022 SHANTHI MARSH Essential hypertension 401.9 01/24/2007 RE MCALLISTER Gastroesophageal Reflux Disorder 53 01/24/2007 RE MCALLISTER Arthritis 716.90 01/24/2007 RE MCALLISTER Past Surgeries: knee arthroplasty Patient [facility] with C/C low back, right side into Right posterior lateral thigh. 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 He has a membership to [employer] in [place] but no exercise for about ten days. [...] ~ Supine gluteal stretching as per palpation Treatment: active/corrective Manual therapy MFR 8 min, lumbar and gluteals with flexion stretch to gluteals. CMT lumbar low force AT Instructed patient in proper sit to stand which he performed well, 5 min Treatment carried out today and well tolerated The prognosis,at this time,is fair to good Short term goals include improvement in excess 25% on regional disability questionnaire and/or NRS over the first 3-4 treatment visits. It was explained to the patient that resolution of soft tissue complaints through conservative management requires compliance with at home recommendations and avoidance of aggravating factors. Self-Care Recommendations: follow instructions in sit to stand. ~Patient encouraged to engage in activities such [...] twice per week for 2 weeks. Visit 1 F/U this week Seek urgent care as needed. CMT: chiropractic manipulative therapy SMT: Spinal Manipulative Therapy F/D: Flexion Distraction MFR: Myofascial Release S-I: Sacroiliac MFTP: Myofascial Trigger Point NRS: Numeric Rating Scale N/T: Numbness/Tingling PIR: Post isometric relaxation /es/ LAUREN QUIGLEY D.C. CHIROPRACTOR Signed: 01/29/2024 12:40 LAUREN QUIGLEY CNTRL WSTRN [facility]
--- OUTSIDE RECORDS SUMMARY | 2024-03-20 14:03 | XMS_ITS | Encounter Summary ---
Author Name [facility] [place] [facility] [place] Address [address] [place] [address] Care Team Providers Care Gyroscopic Instrument Tester Name Role Phone NERI MANCERA Primary Care [...] [place] MEDIC[place] JONELLE Haque Mar 13, 2015 [id number] [phone] VERONICA BROWN RT PATIENT MEDICARE (WNR) MEDICARE (M) PART B Aug 12, 2007 PART B [id number] VERONICA BROWN RT PATIENT MEDICARE (WNR) MEDICARE (M) PART A Jan 12, 2004 PART A [id number] VERONICA BROWN RT PATIENT Selected Encounter This section includes the information on record at [place] for the Encounter. Date/Time Encounter Type Encounter Description Reason Pro vider Source Feb 06, 2024 02:44 PM Outpatient Encounter PRIMARY CARE/MEDICINE IHE Encounter Template Text not used by [facility] Plan of Treatment: Future Appointments (+ 6 months) and Future Tests (+/- 45 days) The Plan of Treatment section includes future care activities for the patient from all [place] [facility]. This section includes future appointments and future orders which are active, pending or scheduled. Future Appointments This section includes appointments that were scheduled to occur 6 months from the date of the Encounter, up to a maximum of 20 appointments. The data comes from all [facility]. Appointment Date/Time Appointment Type Appointme nt Facility Name Feb 09, 2024 02:00 PM AMBULATORY - MEDICINE [place] [facility] [place] [facility] Feb 12, 2024 11:00 AM AMBULATORY - MEDICINE [place] [facility] [place] [facility] Feb 15, 2024 01:00 PM AMBULATORY - MEDICINE [place] [facility] [place] [facility] Feb 22, 2024 01:00 PM AMBULATORY MEDICINE [place] [facility] [place] [facility] Feb 29, 2024 09:00 AM AMBULATORY MEDICINE [place] [facility] [place] [facility] Mar 08, 2024 10:30 AM AMBULATORY - MEDICINE [place] [facility] [place] [facility] Mar 18, 2024 11:00 AM AMBULATORY - MEDICINE [place] [facility] [place] [facility] Mar 25, 2024 10:00 AM AMBULATORY - MEDICINE [place] [facility] [place] [facility] Apr 04, 2024 03:00 PM AMBULATORY - MEDICINE [place] [facility] [place] [facility] Apr 05, 2024 11:00 AM AMBULATORY - MEDICINE [place] [facility] [place] [facility] Apr 08, 2024 03:30 PM AMBULATORY - MEDICINE [place] [facility] [place] [facility] Apr 23, 2024 01:00 PM AMBULATORY - MEDICINE [place] [facility] [place] [facility] Apr 30, 2024 10:00 AM AMBULATORY - MEDICINE [place] [facility] [place] [facility] May 03, 2024 01:00 PM AMBULATORY - MEDICINE [place] [facility] [place] [facility] Active, Pending, and Scheduled Orders This section includes a listing of several types of active, pending, and scheduled orders, including clinic medications orders, diagnostic test orders, procedure orders and consult orders; where the start date of the order is 45 days before the date of the Encounter or 45 days after the date of theEncounter. The data comes from all [facility] treatment facilities. Test Date/Time Test Type Test Details Facility Name Mar 11, 2024 12:00 AM Laboratory - Chemistry Order PO4 BLOOD (SST[facility]UM) [facility] Mar 11, 2024 12:00 AM Laboratory - Chemistry Order PTH INTACT BLOOD (RED-PLAIN) [facility] Mar 11, 2024 12:00 AM Laboratory - Chemistry Order VITAMIN D (25-OH) BLOOD (SST-SERUM) [facility] Mar 11, 2024 12:00 AM Laboratory - Chemistry Order CALCIUM BLOOD (SST-SERUM) [facility] Mar 11, 2024 12:00 AM Laboratory - Chemistry Order MAGNESIUM BLOOD (SST-SERUM) [facility] Mar 11, 2024 12:00 AM Laboratory - Chemistry Order MICROALBUMIN CREATININE RATIO PANEL URINE (RANDOM) [facility] Mar 11, 2024 12:00 AM Laboratory - Chemistry Order BASIC METABOLIC PANEL (non-fasting) BLOOD (SST-SERUM) [facility] Mar 11, 2024 12:00 AM Laboratory - Chemistry Order CBC BLOOD (LAV-BLOOD) [facility] Mar 11, 2024 12:00 AM Laboratory - Chemistry Order FERRITIN BLOOD (SST-SERUM) [facility] Mar 11, 2024 12:00 AM Laboratory - Chemistry Order IRON & TIBC PANEL BLOOD (SST-SERUM) [facility] Mar 11, 2024 12:00 AM Laboratory - Chemistry Order LIPID PANEL, NON FASTING BLOOD (SST-SERUM) [facility] Social History: Smoking Status (Most current) [...] 26, 2023 10:00 AM VA-TOBACCO FORMER USER [place] [facility] [place] [facility] Tobacco Use History This section includes a history of the smoking, or tobacco-related health factors, that were collected on or before the date of the Encounter. The data comes from the [place] facility where the Encounter took place. Date/Time Smoking Status/Tobacco Use Comment F acility Apr 26, 2023 10:00 AM VA-TOBACCO QUIT 15 YRS OR MORE [facility] [place] [facility] Mar 30, 2022 11:00 AM VA-TOBACCO FORMER USER [facility] [place] [facility] Mar 30, 2022 11:00 AM VA-TOBACCO QUIT 15 YRS OR MORE [facility] [place] [facility] Mar 17, 2021 01:30 PM VA-TOBACCO FORMER USER [facility] [place] [facility] Mar 17, 2021 01:30 PM VA-TOBACCO NEVER USED [facility] [place] [facility] Mar 17, 2021 01:30 PM VA-TOBACCO QUIT 15 YRS OR MORE [facility] [place] [facility] Mar 31, 2020 10:30 AM VA-TOBACCO FORMER USER [facility] [place] [facility] Mar 31, 2020 10:30 AM VA-TOBACCO QUIT 15 YRS OR MORE [facility] [place] [facility] Nov 23, 2018 12:07 PM VA-TOBACCO FORMER USER [facility] [place] [facility] Nov 23, 2018 12:07 PM VA-TOBACCO QUIT 15 YRS OR MORE [facility] [place] [facility] Nov 22, 2017 10:02 AM VA-TOBACCO NEVER USED [facility] [place] [facility] Mar 14, 2017 09:31 AM LIFETIME NON-TOBACCO USER [facility] [place] [facility] Mar 01, 2016 02:51 PM LIFETIME NON-TOBACCO USER [facility] [place] [facility] Feb 10, 2015 09:31 AM QUIT TOBACCO USE > 7 YEARS AGO quit in 1964 [place] [facility] [place] [facility] Encounter Notes: All associated encounter notes This section contains the clinical notes associated to the Encounter. Date/Time Encounter Note(s) Provider Source Feb 06, 2024 02:52 PM ADDENDUM: LOCAL TITLE: Addendum STANDARD TITLE: ADDENDUM DATE OF NOTE: FEB 06, 2024@14:52:48 ENTRY DATE: FEB 06, 2024@14:52:49 AUTHOR: FAREED TREVINO EXP COSIGNER: URGENCY: STATUS: COMPLETED Requesting: OMEPRAZOLE 20MG EC CAP [id number] ACTIVE 90 02/20/2023 11/20/2023 (0) SIG: TAKE ONE CAPSULE BY MOUTH EVERY DAY FOR STOMACH ACID Provider: NERI AMNCERA Cost/Fill: $ 1.52 XX Please Mail /cas/ FAREED TREVINO, MSN, RN, CNL PRIMARY CARE TEAM NURSE Signed: 02/06/2024 14:53 Receipt Acknowledged By: 02/06/2024 15:15 /cas/ Neri Mancera MD Staff Physician === --- Original Document --- 02/06/24 ADMINISTRATIVE NOTE: presented to Primary Care [facility] for medication renewal on the following medication: OMEPRAZOLE CAP,EC 20MG would like to have mailed. Please review and advise. /cas/ RENEE MICHEL Signed: 02/06/2024 14:45 Receipt Acknowledged By: 02/06/2024 14:53 /cas/ RUDY OCONNELL, RN, CNL PRIMARY CARE TEAM NURSE for [place] 02/06/2024 15:07 /es/ ALEXANDRA SHELL LPN LPN 02/06/2024 ADDENDUM STATUS: COMPLETED Done. /cas/ Neri Mancera MD Staff Physician Signed: 02/06/2024 15:15 FAREED TREVINO [place] [facility] [place] [facility] Feb 06, 2024 02:44 PM ADMINISTRATIVE NOTE: LOCAL TITLE: ADMINISTRATIVE NOTE STANDARD TITLE: ADMINISTRATIVE NOTE DATE OF NOTE: FEB 06, 2024@14:44 ENTRY DATE: FEB 06, 2024@14:44:50 AUTHOR: RENEE MORRIS EXP COSIGNER: URGENCY: STATUS: COMPLETED ADMINISTRATIVE NOTE Has ADDENDA [place] presented to Primary Care [facility] for medication renewal on the following medication: OMEPRAZOLE CAP,EC 20MG [place] would like to have mailed. Please review and advise. /cas/ RENEE MICHEL Signed: 02/06/2024 14:45 Receipt Acknowledged By: 02/06/2024 14:53 /es/ FAREED TREVINO, MSN, RN, CNL PRIMARY CARE TEAM NURSE for [place] 02/06/2024 15:07 /es/ ALEXANDRA SHELL LPN LPN 02/06/2024 ADDENDUM STATUS: COMPLETED Requesting: OMEPRAZOLE 20MG EC CAP [id number] ACTIVE 90 02/20/2023 11/20/2023 (0) SIG: TAKE ONE CAPSULE BY MOUTH EVERY DAY FOR STOMACH ACID Provider: NERI MANCERA Cost/Fill: $ 1.52 XX Please Mail /es/ RUDY OCONNELL, RN, CNL PRIMARY CARE TEAM NURSE Signed: 02/06/2024 14:53 Receipt Acknowledged By: 02/06/2024 15:15 /cas/ Neri Mancera MD Staff Physician 02/06/2024 ADDENDUM STATUS: COMPLETED Done. /cas/ Neri Mancera MD Staff Physician Signed: 02/06/2024 15:15 RENEE MORRIS [facility]
--- OUTSIDE RECORDS SUMMARY | 2024-03-20 14:04 | XMS_ITS | Encounter Summary ---
Author Name [facility] [place] Organization [facility] [place] Address [address] [place] [address] Care Team Providers Care Marketing Proposal Coordinator Name Role Phone SOFI MANCERA Primary [...] JONELLE ROBLEDOEX VAIBHAV Александр Mar 13, 2015 [id number] VERONICA BROWN RT PATIENT MEDICARE (WNR) MEDICARE (M) PART B Aug 12, 2007 PART B [id number] VERONICA BROWN RT PATIENT MEDICARE (WNR) MEDICARE (M) PART A Jan 12, 2004 PART A [id number] VERONICA BROWN RT PATIENT Selected Encounter This section includes the information on record at [place] for the Encounter. Date/Time Encounter Type Encounter Description Reason Pro vider Source Feb 24, 2024 10:42 AM Outpatient Encounter OPTOMETRY E Encounter Template Text not used by [facility] Plan of Treatment: Future Appointments (+ 6 months) and Future Tests (+/- 45 days) The Plan of Treatment section includes future care activities for the patient [facility] [place] [facility] This section includes future appointments and future orders which are active, pending or scheduled. Future Appointments This section includes appointments that were scheduled to occur 6 months from the date of the Encounter, up to a maximum of 20 appointments. The data comes from all [facility]. Appointment Date/Time Appointment Type Appointme nt Facility Name Feb 29, 2024 09:00 AM AMBULATORY - MEDICINE [place] [facility] [place] [facility] Mar 08, 2024 10:30 AM AMBULATORY MEDICINE [place] [facility] [place] [facility] Mar 18, 2024 11:00 AM AMBULATORY MEDICINE [place] [facility] [place] [facility] Mar 25, 2024 10:00 AM AMBULATORY MEDICINE [place] [facility] [place] [facility] Apr 04, 2024 03:00 PM AMBULATORY MEDICINE [place] [facility] [place] [facility] Apr 05, 2024 11:00 AM AMBULATORY MEDICINE [place] [facility] [facility] Apr 08, 2024 03:30 PM AMBULATORY MEDICINE [place] [facility] [place] [facility] Apr 23, 2024 01:00 PM AMBULATORY - MEDICINE [place] [facility] [place] [facility] Apr 30, 2024 10:00 AM AMBULATORY MEDICINE [place] [facility] [place] [facility] May 03, 2024 01:00 PM AMBULATORY MEDICINE [place] [facility] [place] [facility] Active, Pending, and Scheduled Orders This section includes a listing of several types of active, pending, and scheduled orders, including clinic medications orders, diagnostic test orders, procedure orders and consult orders; where the start date of the order is 45 days before the date of the Encounter or 45 days after the date of theEncounter. The data comes from all [facility]. Test Date/Time Test Type Test Details Facility Name Mar 11, 2024 12:00 AM Laboratory - Chemistry Order PO4 BLOOD (SST-SERUM) [facility] Mar 11, 2024 12:00 AM Laboratory - Chemistry Order [facility]TH INTA[facility] (RED[facility]PL[facility] Mar 11, 2024 12:00 AM Laboratory - Chemistry Order VITAMIN D (25-OH) BLOOD (SST-SERUM) SP [facility] Mar 11, 2024 12:00 AM Laboratory - Chemistry Order CALCIUM BLOOD (SST-SERUM) [facility] Mar 11, 2024 12:00 AM Laboratory - Chemistry Order MAGNESIUM BLOOD (SST-SERUM) [facility] Mar 11, 2024 12:00 AM Laboratory - Chemistry Order MICROALBUMIN CREATININE RATIO PANEL URINE (RANDOM) [facility] Mar 11, 2024 12:00 AM Laboratory - Chemistry Order BASIC METABOLIC PANEL (non-fasting) BLOOD (SST-SERUM) [facility] Mar 11, 2024 12:00 AM Laboratory - Chemistry Order CBC BLOOD (LAV-BLOOD) [facility] Mar 11, 2024 12:00 AM Laboratory - Chemistry Order FERRITIN BLOOD (SST-SERUM) [facility] Mar 11, 2024 12:00 AM Laboratory - Chemistry Order IRON & TIBC PANEL BLOOD (SST-SERUM) [facility] Mar 11, 2024 12:00 AM Laboratory - Chemistry Order LIPID PANEL, NON FASTING BLOOD (SST-SERUM) [facility] Social History: Smoking Status (Most current) and Tobacco Use (All prior to encounter date) This section includes the most current, and the historical, smoking and tobacco- related health factors from the [place] facility where the Encounter took place. Current Smoking Status This section includes the most current smoking, or tobacco-related health factor, from the [place] facility where the Encounter took place. Date/Time Current Smoking Status Comment María Elena ity Apr 26, 2023 10:00 AM [place]-TOBACCO FORMER USER [facility] Tobacco Use History This section includes a history of the smoking, or tobacco-related health factors, that were collected on or before the date of the Encounter. The data comes from the [place] facility where the Encounter took place. Date/Time Smoking Status/Tobacco Use Comment F acility Apr 26, 2023 10:00 AM [place]-TOBACCO QUIT 15 YRS OR MORE [facility] Mar 30, 2022 11:00 AM VA-TOBACCO FORMER USER [facility] [place] [facility] Mar 30, 2022 11:00 AM VA-TOBACCO QUIT 15 YRS OR MORE [facility] [place] [facility] Mar 17, 2021 01:30 PM VA-TOBACCO FORMER USER [facility] [place] [facility] Mar 17, 2021 01:30 PM VA-TOBACCO NEVER USED [facility] [place] [facility] Mar 17, 2021 01:30 PM VA-TOBACCO QUIT 15 YRS OR MORE [facility] [place] [facility] Mar 31, 2020 10:30 AM VA-TOBACCO FORMER USER [facility] [place] [facility] Mar 31, 2020 10:30 AM VA-TOBACCO QUIT 15 YRS OR MORE [facility] [place] [facility] Nov 23, 2018 12:07 PM VA-TOBACCO FORMER USER [facility] [place] [facility] Nov 23, 2018 12:07 PM VA-TOBACCO QUIT 15 YRS OR MORE [facility] [place] [facility] Nov 22, 2017 10:02 AM VA-TOBACCO NEVER USED [facility] [place] [facility] Mar 14, 2017 09:31 AM LIFETIME NON-TOBACCO USER [facility] [place] [facility] Mar 01, 2016 02:51 PM LIFETIME NON-TOBACCO USER [facility] [place] [facility] Feb 10, 2015 09:31 AM QUIT TOBACCO USE > 7 YEARS AGO quit in 1964 [place] [facility] [place] [facility] Encounter Notes: All associated encounter notes This section contains the clinical notes associated to the Encounter. Date/Time Encounter Note(s) Provider Source Feb 24, 2024 10:42 AM TELEPHONE ENCOUNTE R NOTE: LOCAL TITLE: TELEPHONE NOTE/SPECIALTY CLINIC STANDARD TITLE: TELEPHONE ENCOUNTER NOTE DATE OF NOTE: FEB 24, 2024@10:42 ENTRY DATE: FEB 24, 2024@10:42:24 AUTHOR: AARON SCHMIDT EXP COSIGNER: URGENCY: STATUS: COMPLETED Called patient and LM to c/b and reschedule OPTOMETRY appointment that was cancelled by clinic for 05/08/2023, original PID 04/24/2024. Letter mailed. /cas/ AARON SCHMIDT ADVANCED SONOGRAPHER Signed: 02/24/2024 10:43 AARON SCHMIDT [facility]
--- OUTSIDE RECORDS SUMMARY | 2024-03-20 14:04 | XMS_ITS | Encounter Summary ---
Author Name [facility] [place] Organization [place] Address [address] [place] [address] Care Team Providers Care Seo Engineer Name Role Phone SOFI MANCERA Primary [...] [place] MEDIC[place] JONELLE Haque Mar 13, 2015 [id number] VERONICA BROWN RT PATIENT MEDICARE (WNR) MEDICARE (M) PART B Aug 12, 2007 PART B [id number] VERONICA BROWN RT PATIENT MEDICARE (WNR) MEDICARE (M) PART A Jan 12, 2004 PART A [id number] VERONICA BROWN RT PATIENT Selected Encounter This section includes the information on record at [place] for the Encounter. Date/Time Encounter Type Encounter Description Reason Pro vider Source IHE Encounter Template Text not used by [place]
--- OUTSIDE RECORDS SUMMARY | 2024-03-20 14:04 | XMS_ITS | Encounter Summary ---
Author Name [facility] [place] Address [address] [place] [address] Care Team Providers Care Printing Press Machine Operator Name Role Phone SOIF MANCERA Primary Care Provider Unavailrj e Insurance [...] Relationship to Policy [place] [facility] [facility] Александр Mar 13, 2015 [id number] VERONICA BROWN RT PATIENT MEDICARE (WNR) MEDICARE (M) PART B Aug 12, 2007 PART B [id number] VERONICA BROWN RT PATIENT MEDICARE (WNR) MEDICARE (M) PART A Jan 12, 2004 PART A [id number] VERONICA BROWN RT PATIENT Selected Encounter This section includes the information on record at [place] for the Encounter. Date/Time Encounter Type Encounter Description Reason Provider Source Feb 22, 2024 12:45 PM EXERCISE CLASS HEALTH/WELLBEING SRVS ICD-10-CM Y93.42 Activity, yoga RHONA MURCIA [place] IHE Encounter Template Text not used by VA Assessments - Encounter Diagnoses This section includes the primary and secondary diagnoses documented for the Encounter. Date/Time Primary/Secondary Diagnosis Diagnosis Name Provider Source Feb 22, 2024 12:45 PM PRIMARY Activity, KIKE Case [facility] [place] [facility] Plan of Treatment: Future Appointments (+ 6 months) and Future Tests (+/- 45 days) The Plan of Treatment section includes future care activities for the patient from all [place] [facility]. This section includes future appointments and future orders which are active, pending or scheduled. Future Appointments This section includes appointments that were scheduled to occur 6 months from the date of the Encounter, up to a maximum of 20 appointments. The data comes from all [facility]. Appointment Date/Time Appointment Type Appointme nt Facility Name Feb 29, 2024 09:00 AM AMBULATORY - MEDICINE [place] [facility] Mar 08, 2024 10:30 AM AMBULATORY MEDICINE [place] [facility] Mar 18, 2024 11:00 AM AMBULATORY MEDICINE [place] C [place] [facility] Mar 25, 2024 10:00 AM AMBULATORY MEDICINE [place] [facility] Apr 04, 2024 03:00 PM AMBULATORY MEDICINE [place] [facility] Apr 05, 2024 11:00 AM AMBULATORY MEDICINE [place] [facility] Apr 08, 2024 03:30 PM AMBULATORY MEDICINE [place] [facility] Apr 23, 2024 01:00 PM AMBULATORY MEDICINE [place] C [place] [facility] Apr 30, 2024 10:00 AM AMBULATORY MEDICINE [place] C [place] [facility] May 03, 2024 01:00 PM AMBULATORY MEDICINE [facility]L [place] [facility] Active, Pending, and Scheduled Orders This section includes a listing of several types of active, pending, and scheduled orders, including clinic medications orders, diagnostic test orders, procedure orders and consult orders; where the start date of the order is 45 days before the date of the Encounter or 45 days after the date of theEncounter. The data comes from all [facility]. Test Date/Time Test Type Test Details Facility Name Mar 11, 2024 12:00 AM Laboratory - Chemistry Order PO4 BLOOD (SST-SERUM) [facility] Mar 11, 2024 12:00 AM Laboratory - Chemistry Order PTH INTACT BLOOD (RED-PLAIN) SERUM [facility] Mar 11, 2024 12:00 AM Laboratory - Chemistry Order VITAMIN D (25-OH) BLOOD (SST-SERUM) [facility] Mar 11, 2024 12:00 AM Laboratory - Chemistry Order MAGNESIUM BLOOD (SST-SERUM) [facility] Mar 11, 2024 12:00 AM Laboratory - Chemistry Order CALCIUM BLOOD (SST-SERUM) [facility] Mar 11, 2024 12:00 AM Laboratory - Chemistry Order BASIC METABOLIC PANEL (non-fasting) BLOOD (SST-SERUM) [facility] Mar 11, 2024 12:00 AM Laboratory - Chemistry Order CBC BLOOD (LAV-BLOOD) [facility] Mar 11, 2024 12:00 AM Laboratory - Chemistry Order MICROALBUMIN CREATININE RATIO PANEL URINE (RANDOM) [facility] Mar 11, 2024 12:00 AM Laboratory - Chemistry Order FERRITIN BLOOD (SST-SERUM) [facility] Mar 11, 2024 12:00 AM Laboratory - Chemistry Order IRON & TIBC PANEL BLOOD (SST-SERUM) [facility] Mar 11, 2024 12:00 AM Laboratory - Chemistry Order LIPID PANEL, NON FASTING BLOOD (SST-SERUM) [facility] Social History: Smoking Status (Most current) and [...] Elena armijo Apr 26, 2023 10:00 AM [place]-TOBACCO QUIT 15 YRS OR MORE [facility] Tobacco Use History This section includes a history of the smoking, or tobacco-related health factors, that were collected on or before the date of the Encounter. The data comes from the [place] facility where the Encounter took place. Date/Time Smoking Status/Tobacco Use Comment Gamaliel landin Apr 26, 2023 10:00 AM [place]-TOBACCO QUIT 15 YRS OR MORE [place] [place] [facility] Mar 30, 2022 11:00 AM VA-TOBACCO FORMER USER [place] [facility] [place] [facility] Mar 30, 2022 11:00 AM [place]-TOBACCO QUIT 15 YRS OR MORE [place] [facility] [place] [facility] Mar 17, 2021 01:30 PM [place]-TOBACCO FORMER USER [place] [facility] [place] [facility] Mar 17, 2021 01:30 PM VA-TOBACCO NEVER USED [place] [facility] Mar 17, 2021 01:30 PM [place]-TOBACCO QUIT 15 YRS OR MORE [place] [facility] [place] [facility] Mar 31, 2020 10:30 AM VA-TOBACCO FORMER USER [place] [place] [facility] Mar 31, 2020 10:30 AM [place]-TOBACCO QUIT 15 YRS OR MORE [place] [facility] [place] [facility] Nov 23, 2018 12:07 PM VA-TOBACCO FORMER USER [place] [place] [facility] Nov 23, 2018 12:07 PM [place]-TOBACCO QUIT 15 YRS OR MORE [place] [facility] [place] [facility] Nov 22, 2017 10:02 AM VA-TOBACCO NEVER USED [place] [place] [facility] Mar 14, 2017 09:31 AM LIFETIME NON-TOBACCO USER [place] [place] [facility] Mar 01, 2016 02:51 PM LIFETIME NON-TOBACCO USER [place] [facility] Feb 10, 2015 09:31 AM QUIT TOBACCO USE > 7 YEARS AGO quit in 1964 [place] [facility] Encounter Notes: All associated encounter notes This section contains the clinical notes associated to the Encounter. Date/Time Encounter Note(s) Provider Source Feb 22, 2024 01:00 PM RECREATIONAL THERA PY NOTE: LOCAL TITLE: YOGA WELLBEING STANDARD TITLE: RECREATIONAL THERAPY NOTE DATE OF NOTE: FEB 22, 2024@13:00 ENTRY DATE: FEB 26, 2024@07:45:36 AUTHOR: MARIOLA MURCIA COSIGNER: URGENCY: STATUS: COMPLETED [...] triangle pose, wide leg forward bend variations, [place] 2, extended side angle pose, [place] 1, plank, cobra, locust, downward facing dog, wisdom pose, contralateral limb raises, head to knee pose, bridge, reclined twist, knees to chest; Systematic Relaxation; and Gratitude. Modifications were geared toward the [facility]'s individual needs and preferences. [facility] was one of five participants in Group Yoga, fully engaging in all the postures offered and modifying according to individual needs. used yoga blocks and a yoga belt for support as needed and used breath as a tool to enhance practice. will return to class as personal scheduling allows. /cas/ FINN [id number] Ethnology Professor Signed: 02/26/2024 07:48 MARIOLA MURCIA CNTRL W[facility]N [facility]
--- OUTSIDE RECORDS SUMMARY | 2024-03-20 14:04 | XMS_ITS ---
Author Name [facility] [place] Organization [place] Address [address] [place] [address] Care Team Providers Care Labor/Excavator Name Role Phone NERI MANCERA Primary Care [...] [place] MEDIC[place] JONELLE Haque Mar 13, 2015 [id number] VERONICA BROWN RT PATIENT MEDICARE (WNR) MEDICARE (M) PART B Aug 12, 2007 PART B [id number] VERONICA BROWN RT PATIENT MEDICARE (WNR) MEDICARE (M) PART A Jan 12, 2004 PART A [id number] VERONICA BROWN RT PATIENT Selected Encounter This section includes the information on record at [place] for the Encounter. Date/Time Encounter Type Encounter Description Reason Pro vider Source Mar 08, 2024 11:33 AM Outpatient Encounter PRIMARY CARE/MEDICINE IHE Encounter Template Text not used by VA Plan of Treatment: Future Appointments (+ 6 months) and Future Tests (+/- 45 days) The Plan of Treatment section includes future care activities for the patient from all [place] [facility]. This section includes future appointments and future orders which are active, pending or scheduled. Future Appointments This section includes appointments that were scheduled to occur 6 months from the date of the Encounter, up to a maximum of 20 appointments. The data comes from all [facility]. Appointment Date/Time Appointment Type Appointme nt Facility Name Mar 18, 2024 11:00 AM AMBULATORY - [place]ICINE [place] [facility] Mar 25, 2024 10:00 AM AMBULATORY MEDICINE [place] [facility] Apr 04, 2024 03:00 PM AMBUL[place]ORY [place]ICINE [place] [facility] Apr 05, 2024 11:00 AM AMBULATORY [place]ICINE [place] [facility] Apr 08, 2024 03:30 PM AMBUL[place]ORY [place]ICINE [place] [facility] Apr 23, 2024 01:00 PM AMBULATORY [place]ICINE [place] [facility] Apr 30, 2024 10:00 AM AMBULATORY MEDICINE [place] [facility] May 03, 2024 01:00 PM AMBULATORY MEDICINE [facility]L [place] [facility] Active, Pending, and Scheduled Orders This section includes a listing of several types of active, pending, and scheduled orders, including clinic medications orders, diagnostic test orders, procedure orders and consult orders; where the start date of the order is 45 days before the date of the Encounter or 45 days after the date of theEncounter. The data comes from all [facility]. Test Date/Time Test Type Test Details Facility Name Mar 11, 2024 12:00 AM Laboratory - Chemistry Order PO4 BLOOD (SST-SERUM) [facility] Mar 11, 2024 12:00 AM Laboratory - Chemistry Order PTH INTACT BLOOD (RED-PLAIN) [facility] Mar 11, 2024 12:00 AM Laboratory - Chemistry Order VITAMIN D (25-OH) BLOOD (SST-SERUM) [facility] Mar 11, 2024 12:00 AM Laboratory - Chemistry Order CALCIUM BLOOD (SST-SERUM) [facility] Mar 11, 2024 12:00 AM Laboratory - Chemistry Order MAGNESIUM BLOOD (SST-SERUM) [facility] Mar 11, 2024 12:00 AM Laboratory - Chemistry Order MICROALBUMIN CREATININE RATIO PANEL URINE (RANDOM) [facility] Mar 11, 2024 12:00 AM Laboratory - Chemistry Order CBC BLOOD (LAV-BLOOD) [facility] Mar 11, 2024 12:00 AM Laboratory - Chemistry Order FERRITIN BLOOD (SST-SERUM) [facility] Mar 11, 2024 12:00 AM Laboratory - Chemistry Order BASIC METABOLIC PANEL (non-fasting) BLOOD (SST-SERUM) [facility] Mar 11, 2024 12:00 AM Laboratory - Chemistry Order LIPID PANEL, NON FASTING BLOOD (SST-SERUM) [facility] Mar 11, 2024 12:00 AM Laboratory - Chemistry Order IRON & TIBC PANEL BLOOD (SST-SERUM) [facility] Social History: Smoking Status (Most current) [...] Elena ity Apr 26, 2023 10:00 AM [place]-TOBAC[place] FORMER USER [facility] Tobacco Use History This section includes a history of the smoking, or tobacco-related health factors, that were collected on or before the date of the Encounter. The data comes from the [place] facility where the Encounter took place. Date/Time Smoking Status/Tobacco Use Comment F acility Apr 26, 2023 10:00 AM [place]-TOBACCO QUIT 15 YRS OR MORE [facility] Mar 30, 2022 11:00 AM [place]-TOBACCO FORMER USER [facility] Mar 30, 2022 11:00 AM [place]-TOBACCO QUIT 15 YRS OR MORE [place] CNTRL [...] quit in 1964 [place] [facility] Encounter Notes: All associated encounter notes This section contains the clinical notes associated to the Encounter. Date/Time Encounter Note(s) Provider Source Mar 08, 2024 11:40 AM ADDENDUM: LOCAL TITLE: Addendum STANDARD TITLE: ADDENDUM DATE OF NOTE: MAR 08, 2024@11:40:47 ENTRY DATE: MAR 08, 2024@11:40:48 AUTHOR: DESI ESCALONA EXP COSIGNER: URGENCY: STATUS: COMPLETED Forwarding to Provider /cas/ DESI ESCALONA RN REGISTERED NURSE Signed: 03/08/2024 11:41 Receipt Acknowledged By: 03/08/2024 13:02 /cas/ Neri Mancera MD Staff Physician === --- Original Document --- 03/08/24 ADMINISTRATIVE NOTE: [place] presented to [facility] Primary Care requesting renewal on the following medication: ROSUVASTATIN TAB 20MG for mail please /cas/ RENEE MICHEL Signed: 03/08/2024 11:34 Receipt Acknowledged By: 03/08/2024 11:40 /cas/ DESI ESCALONA RN REGISTERED NURSE for TARUN FRANCE * AWAITING SIGNATURE * ALEXANDRA SHELL 03/08/2024 ADDENDUM STATUS: COMPLETED Done. /cas/ Neri Mancera MD Staff Physician Signed: 03/08/2024 13:02 [facility] Mar 08, 2024 11:33 AM ADMINISTRATIVE NOTE: LOCAL TITLE: ADMINISTRATIVE NOTE STANDARD TITLE: ADMINISTRATIVE NOTE DATE OF NOTE: MAR 08, 2024@11:33 ENTRY DATE: MAR 08, 2024@11:33:59 AUTHOR: RENEE MORRIS EXP COSIGNER: URGENCY: STATUS: COMPLETED ADMINISTRATIVE NOTE Has ADDENDA [place] presented to [facility] Primary Care requesting renewal on the following medication: ROSUVASTATIN TAB 20MG for mail please /aida MICHEL Signed: 03/08/2024 11:34 Receipt Acknowledged By: 03/08/2024 11:40 /cas/ DESI ESCALONA RN REGISTERED NURSE for TARUN FRANCE 03/11/2024 09:41 /cas/ ALEXANDRA SHELL LPN LPN 03/08/2024 ADDENDUM STATUS: COMPLETED Forwarding to Provider /cas/ DESI ESCALONA RN REGISTERED NURSE Signed: 03/08/2024 11:41 Receipt Acknowledged By: 03/08/2024 13:02 /cas/ Neri Mancera MD Staff Physician 03/08/2024 ADDENDUM STATUS: COMPLETED Done. /aida Mancera MD Staff Physician Signed: 03/08/2024 13:02 RENEE MORRIS [facility]
--- OUTSIDE RECORDS SUMMARY | 2024-03-20 14:04 | XMS_ITS | Encounter Summary ---
Author Name [place] Address [address] [place] [address] Care Team Providers Care Revenue Director Name Role Phone NERI MANCERA Primary Care [...] [place] MEDIC[place] JONELLE Haque Mar 13, 2015 [id number] VERONICA BROWN RT PATIENT MEDICARE (WNR) MEDICARE (M) PART B Aug 12, 2007 PART B [id number] VERONICA BROWN RT PATIENT MEDICARE (WNR) MEDICARE (M) PART A Jan 12, 2004 PART A [id number] VERONICA BROWN RT PATIENT Selected Encounter This section includes the information on record at [place] for the Encounter. Date/Time Encounter Type Encounter Description Reason Pro vider Source Feb 29, 2024 04:36 PM Outpatient Encounter PRIMARY CARE/MEDICINE IHE Encounter Template Text not used by VA Plan of Treatment: Future Appointments (+ 6 months) and Future Tests (+/- 45 days) The Plan of Treatment section includes future care activities for the patient from all [place] [facility]. This section includes future appointments and future orders which are active, pending or scheduled. Future Appointments This section includes appointments that were scheduled to occur 6 months from the date of the Encounter, up to a maximum of 20 appointments. The data comes from all [facility]. Appointment Date/Time Appointment Type Appointme nt Facility Name Mar 08, 2024 10:30 AM AMBULATORY - MEDICINE [place] [facility] Mar 18, 2024 11:00 AM AMBULATORY MEDICINE [place] [facility] Mar 25, 2024 10:00 AM AMBULATORY MEDICINE [place] [facility] Apr 04, 2024 03:00 PM AMBULATORY MEDICINE [place] [facility] Apr 05, 2024 11:00 AM AMBULATORY [facility] C [place] [place] [facility] Apr 08, 2024 03:30 PM AMBULATORY MEDICINE [place] [facility] Apr 23, 2024 01:00 PM AMBULATORY MEDICINE [place] [facility] Apr 30, 2024 10:00 AM AMBULATORY MEDICINE [place] [facility] May 03, 2024 01:00 PM AM[place]ULATORY MEDICINE [place] [facility] Active, Pending, and Scheduled Orders This section includes a listing of several types of active, pending, and scheduled orders, including clinic medications orders, diagnostic test orders, procedure orders and consult orders; where the start date of the order is 45 days before the date of the Encounter or 45 days after the date of theEncounter. The data comes from all [facility]. Test Date/Time Test Type Test Details Facility Name Mar 11, 2024 12:00 AM Laboratory - Chemistry Order PTH INTACT BLOOD (RED-PLAIN) SERUM SP [place]TR [place] [facility] Mar 11, 2024 12:00 AM Laboratory - Chemistry Order PO4 BLOOD (SST-SERUM) SP [facility] Mar 11, 2024 12:00 AM Laboratory - Chemistry Order VITAMIN D (25-OH) BLOOD (SST-SERUM) SP ONCE [facility] Mar 11, 2024 12:00 AM Laboratory - Chemistry Order CALCIUM BLOOD (SST-SERUM) [facility] Mar 11, 2024 12:00 AM Laboratory - Chemistry Order MAGNESIUM BLOOD (SST-SERUM) [facility] Mar 11, 2024 12:00 AM Laboratory - Chemistry Order FERRITIN BLOOD (SST-SERUM) [facility] Mar 11, 2024 12:00 AM Laboratory - Chemistry Order IRON & TIBC PANEL BLOOD (SST-SERUM) [facility] Mar 11, 2024 12:00 AM Laboratory - Chemistry Order LIPID PANEL, NON FASTING BLOOD (SST-SERUM) [facility] Mar 11, 2024 12:00 AM Laboratory - Chemistry Order MICROALBUMIN CREATININE RATIO PANEL URINE (RANDOM) [facility] Mar 11, 2024 12:00 AM Laboratory - Chemistry Order BASIC METABOLIC PANEL (non-fasting) BLOOD (SST-SERUM) [facility] Mar 11, 2024 12:00 AM Laboratory - Chemistry Order CBC BLOOD (LAV-BLOOD) [facility] Social History: Smoking Status (Most current) and Tobacco Use (All prior to encounter date) This section includes the most current, and the historical, smoking and tobacco- related health factors from the [place] facility where the Encounter took place. Current Smoking Status This section includes the most current smoking, or tobacco-related health factor, from the [place] facility where the Encounter took place. Date/Time Current Smoking Status Comment María Elena ity Apr 26, 2023 10:00 AM [place]-TOBACCO FORMER USER [facility] Tobacco Use History This section includes a history of the smoking, or tobacco-related health factors, that were collected on or before the date of the Encounter. The data comes from the [place] facility where the Encounter took place. Date/Time Smoking Status/Tobacco Use Comment F acility Apr 26, 2023 10:00 AM [place]-TOBACCO QUIT 15 YRS OR MORE [facility] Mar 30, 2022 11:00 AM [place]-TOBACCO [...] CNTRL [place] [facility] Nov 22, 2017 10:02 AM [place]-TOBACCO NEVER USED [place] [place] [facility] Mar 14, 2017 09:31 AM LIFETIME NON-TOBACCO USER [place] [facility] Mar 01, 2016 02:51 PM LIFETIME NON-TOBACCO USER [place] [place] [facility] Feb 10, 2015 09:31 AM QUIT TOBACCO USE > 7 YEARS AGO quit in 1964 [place] [facility] Encounter Notes: All associated encounter notes This section contains the clinical notes associated to the Encounter. Date/Time Encounter Note(s) Provider Source Feb 29, 2024 04:36 PM NONVA CONSULT: LOCAL TITLE: MD/OUTSIDE CONSULT REPORT SUMMARY STANDARD TITLE: NONVA CONSULT DATE OF NOTE: FEB 29, 2024@16:36 ENTRY DATE: FEB 29, 2024@16:36:46 AUTHOR: NERI MANCERA EXP COSIGNER: URGENCY: STATUS: COMPLETED 02-16-[address] [facility] Actinic keratosis left ear Treated with 5-FU /es/ Neri Mancera MD Staff Physician Signed: 02/29/2024 16:36 NERI MANCERA [place] [facility]
--- OUTSIDE RECORDS SUMMARY | 2024-03-20 14:04 | XMS_ITS ---
Author Name [facility] [place] Organization [place] Address [address] [place] [address] Care Team Providers Care Refrigeration Brazer/Solderer Name Role Phone NERI MANCERA Primary Care [...] [place] [employer]EX CHARAN Haque Mar 13, 2015 [id number] VERONICA BROWN RT PATIENT MEDICARE (WNR) MEDICARE (M) PART B Aug 12, 2007 PART B [id number] VERONICA BROWN RT PATIENT MEDICARE (WNR) MEDICARE (M) PART A Jan 12, 2004 PART A [id number] VERONICA BROWN RT PATIENT Selected Encounter This section includes the information on record at [place] for the Encounter. Date/Time Encounter Type Encounter Description Reason Pro vider Source Feb 29, 2024 11:34 AM Outpatient Encounter ADMIN PAT ACTIVTIES (MASNONCT) IHE Encounter Template Text not used by [place] Plan of Treatment: Future Appointments (+ 6 months) and Future Tests (+/- 45 days) The Plan of Treatment section includes future care activities for the patient from all [place] [facility]. This section includes future appointments and future orders which are active, pending or scheduled. Future Appointments This section includes appointments that were scheduled to occur 6 months from the date of the Encounter, up to a maximum of 20 appointments. The data comes from all [facility]. Appointment Date/Time Appointment Type Appointme nt Facility Name Mar 08, 2024 10:30 AM AMBULATORY - MEDICINE [place] [facility] [place] [place] [facility] Mar 18, 2024 11:00 AM AMBULATORY MEDICINE [place] [facility] [place] [facility] Mar 25, 2024 10:00 AM AMBULATORY MEDICINE [place] [facility] [place] [facility] Apr 04, 2024 03:00 PM AMBULATORY [facility] [place] [place] [facility] Apr 05, 2024 11:00 AM AMBULATORY MEDICINE [place] [facility] [place] [facility] Apr 08, 2024 03:30 PM AMBULATORY MEDICINE [place] [facility] [place] [facility] Apr 23, 2024 01:00 PM AMBULATORY MEDICINE [place] [facility] [place] [facility] Apr 30, 2024 10:00 AM AMBULATORY MEDICINE [place] [facility] [place] [facility] May 03, 2024 01:00 PM [facility] MEDICINE [place] [facility] [place] [facility] Active, Pending, and Scheduled Orders This section includes a listing of several types of active, pending, and scheduled orders, including clinic medications orders, diagnostic test orders, procedure orders and consult orders; where the start date of the order is 45 days before the date of the Encounter or 45 days after the date of theEncounter. The data comes from all [facility]. Test Date/Time Test Type Test Details Facility Name Mar 11, 2024 12:00 AM Laboratory - Chemistry Order PO4 [facility]OD (SST[facility]SERUM[facility] Mar 11, 2024 12:00 AM Laboratory - Chemistry Order PTH INTACT BLOOD (RED-PLAIN) [facility] Mar 11, 2024 12:00 AM Laboratory - Chemistry Order VITAMIN D (25-OH) BLOOD (SST-SERUM) SP [facility] Mar 11, 2024 12:00 AM Laboratory - Chemistry Order CALCIUM BLOOD (SST-SERUM) [facility] Mar 11, 2024 12:00 AM Laboratory - Chemistry Order MICROALBUMIN CREATININE RATIO PANEL URINE (RANDOM) [facility] Mar 11, 2024 12:00 AM Laboratory - Chemistry Order MAGNESIUM BLOOD (SST-SERUM) [facility] Mar 11, 2024 12:00 AM Laboratory - Chemistry Order BASIC METABOLIC PANEL (non-fasting) BLOOD (SST-SERUM) [facility] Mar 11, 2024 12:00 AM Laboratory - Chemistry Order CBC BLOOD (LAV-BLOOD) [facility] Mar 11, 2024 12:00 AM Laboratory - Chemistry Order FERRITIN BLOOD (SST-SERUM) [facility] Mar 11, 2024 12:00 AM Laboratory - Chemistry Order IRON & TIBC PANEL BLOOD (SST-SERUM) [facility] Mar 11, 2024 12:00 AM Laboratory - Chemistry Order LIPID PANEL, NON FASTING BLOOD (SST-SERUM) [facility] Social History: Smoking Status (Most [...] 26, 2023 10:00 AM VA-TOBACCO FORMER USER [facility] Tobacco Use History This section includes a history of the smoking, or tobacco-related health factors, that were collected on or before the date of the Encounter. The data comes from the [place] facility where the Encounter took place. Date/Time Smoking Status/Tobacco Use Comment F acility Apr 26, 2023 10:00 AM [place]-TOBACCO QUIT 15 YRS OR MORE [facility] Mar 30, 2022 11:00 AM VA-TOBACCO FORMER USER [place] [facility] [place] [facility] Mar 30, 2022 11:00 AM VA-TOBACCO QUIT 15 YRS OR MORE [facility] [place] [place] [facility] Mar 17, 2021 01:30 PM VA-TOBACCO FORMER USER [facility] [place] [facility] Mar 17, 2021 01:30 PM VA-TOBACCO NEVER USED [place] [facility] [facility] Mar 17, 2021 01:30 PM VA-TOBACCO QUIT 15 YRS OR MORE [facility] [place] [place] [facility] Mar 31, 2020 10:30 AM VA-TOBACCO FORMER USER [facility] [place] [facility] Mar 31, 2020 10:30 AM VA-TOBACCO QUIT 15 YRS OR MORE [facility] [place] [place] [facility] Nov 23, 2018 12:07 PM VA-TOBACCO FORMER USER [facility] [place] [facility] Nov 23, 2018 12:07 PM VA-TOBACCO QUIT 15 YRS OR MORE [facility] [place] [facility] Nov 22, 2017 10:02 AM VA-TOBACCO NEVER USED [facility] [place] [facility] Mar 14, 2017 09:31 AM LIFETIME NON-TOBACCO USER [facility] [place] [facility] Mar 01, 2016 02:51 PM LIFETIME NON-TOBACCO USER [facility] [place] [facility] Feb 10, 2015 09:31 AM QUIT TOBACCO USE > 7 YEARS AGO quit in 1964 [place] [facility] [place] [facility] Encounter Notes: All associated encounter notes This section contains the clinical notes associated to the Encounter. Date/Time Encounter Note(s) Provider Source Feb 29, 2024 11:34 AM ADMINISTRATIVE NOT E: LOCAL TITLE: CCC: SCHEDULING ADMINISTRATION STANDARD TITLE: ADMINISTRATIVE NOTE DATE OF NOTE: FEB 29, 2024@11:34:06 ENTRY DATE: FEB 29, 2024@11:34:06 AUTHOR: MARIOLA REEDER COSIGNER: URGENCY: STATUS: COMPLETED CCC: SCHEDULING ADMINISTRATION Has ADDENDA Patient Demographics Patient Name: JACQUELYN BROWN Patient Primary Phone: [phone] Patient Primary Address: [address] [place] [id number] Patient : 1940 Patient Age: 84 Call Back Number: Caller/Recipient Relation to Patient: Self Caller Name: JACQUELYN BROWN Administrative Administrative Note Reason: Medication Renewal [place] Medications Refill/Renewal Request: . 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 IMPORTANT: This note was created by [facility] staff. Please do not alert the staff member by adding them as a signer for future communications. Alerts are not monitored by this user. /cas/ MARIOLA REEDER VISN [address] [facility] AMSA Signed: 02/29/2024 11:34 Receipt Acknowledged By: 02/29/2024 15:48 /cas/ Jeanette Garcia RN, BSN Primary Care 02/29/2024 12:53 /cas/ Neri Mancera MD Staff Physician 02/29/2024 ADDENDUM STATUS: COMPLETED Done. /cas/ Neri Mancera MD Staff Physician Signed: 02/29/2024 12:52 MARIOLA REEDER [facility]
--- OUTSIDE RECORDS SUMMARY | 2024-03-20 14:04 | XMS_ITS ---
Author Name [facility] [place] Address [address] [place] [address] Care Team Providers Care Recycling Program Manager Name Role Phone SOFI MANCERA Primary [...] MEDICARE [facility] CHARAN Haque Mar 13, 2015 [id number] VERONICA BROWN RT PATIENT MEDICARE (WNR) MEDICARE (M) PART B Aug 12, 2007 PART B [id number] VERONICA BROWN RT PATIENT MEDICARE (WNR) MEDICARE (M) PART A Jan 12, 2004 PART A [id number] VERONICA BROWN RT PATIENT Selected Encounter This section includes the information on record at [place] for the Encounter. Date/Time Encounter Type Encounter Description Reason Provider Source Feb 29, 2024 09:00 AM MTMS BY PHARM ADDL 15 MIN TELEPHONE PRIMARY CARE ICD-10-CM E11.9 Type 2 diabetes mellitus without complications RENETTA FRENCH Encounter Template Text not used by [place] Assessments - Encounter Diagnoses This section includes the primary and secondary diagnoses documented for the Encounter. Date/Time Primary/Secondary Diagnosis Diagnosis Name Provider Source Feb 29, 2024 09:00 AM PRIMARY Type 2 diabetes mellitus without complications RENETTA FRENCH [place] [facility] [place] [facility] Plan of Treatment: Future Appointments (+ 6 months) and Future Tests (+/- 45 days) The Plan of Treatment section includes future care activities for the patient [facility] [place] [facility] This section includes future appointments and future orders which are active, pending or scheduled. Future Appointments This section includes appointments that were scheduled to occur 6 months from the date of the Encounter, up to a maximum of 20 appointments. The data comes from all [place] treatment [facility]. Appointment Date/Time Appointment Type Appointme nt Facility Name Mar 08, 2024 10:30 AM AMBULATORY - MEDICINE [facility] [place] [facility] Mar 18, 2024 11:00 AM AMBULATORY MEDICINE [place] [facility] [place] [place] [facility] Mar 25, 2024 10:00 AM AMBULATORY - MEDICINE [place] [facility] [place] [facility] Apr 04, 2024 03:00 PM AMBULATORY MEDICINE [facility] [place] [place] [facility] Apr 05, 2024 11:00 AM AMBULATORY MEDICINE [place] [facility] [place] [facility] Apr 08, 2024 03:30 PM AMBULATORY MEDICINE [place] [facility] [place] [facility] Apr 23, 2024 01:00 PM AMBULATORY MEDICINE [facility] [place] [place] [facility] Apr 30, 2024 10:00 AM AMBULATORY MEDICINE [facility] [place] [facility] May 03, 2024 01:00 PM AMBULATORY MEDICINE [facility] [place] [place] [facility] Active, Pending, and Scheduled Orders This section includes a listing of several types of active, pending, and scheduled orders, including clinic medications orders, diagnostic test orders, procedure orders and consult orders; where the start date of the order is 45 days before the date of the Encounter or 45 days after the date of theEncounter. The data comes from all [facility]. Test Date/Time Test Type Test Details Facility Name Mar 11, 2024 12:00 AM Laboratory - Chemistry Order PTH INTACT BLOOD (RED-PLAIN) SERUM SP [facility] Mar 11, 2024 12:00 AM Laboratory - Chemistry Order PO4 BLOOD (SST-SERUM) [facility] Mar 11, 2024 12:00 AM Laboratory - Chemistry Order VITAMIN D (25-OH) BLOOD (SST-SERUM) SP [facility] Mar 11, 2024 12:00 AM Laboratory - Chemistry Order CALCIUM BLOOD (SST-SERUM) [facility] Mar 11, 2024 12:00 AM Laboratory - Chemistry Order MAGNESIUM BLOOD (SST-SERUM) [facility] Mar 11, 2024 12:00 AM Laboratory - Chemistry Order FERRITIN BLOOD (SST-SERUM) [facility] Mar 11, 2024 12:00 AM Laboratory - Chemistry Order IRON & TIBC PANEL BLOOD (SST-SERUM) [facility] Mar 11, 2024 12:00 AM Laboratory - Chemistry Order LIPID PANEL, NON FASTING BLOOD (SST-SERUM) [facility] Mar 11, 2024 12:00 AM Laboratory - Chemistry Order MICROALBUMIN CREATININE RATIO PANEL URINE (RANDOM) [facility] Mar 11, 2024 12:00 AM Laboratory - Chemistry Order BASIC METABOLIC PANEL (non-fasting) BLOOD (SST-SERUM) [facility] Mar 11, 2024 12:00 AM Laboratory - Chemistry Order CBC BLOOD (LAV-BLOOD) [facility] Social History: Smoking Status (Most current) and [...] Elena armijo Apr 26, 2023 10:00 AM [place]-TOBACCO FORMER USER [facility] Tobacco Use History This section includes a history of the smoking, or tobacco-related health factors, that were collected on or before the date of the Encounter. The data comes from the [place] facility where the Encounter took place. Date/Time Smoking Status/Tobacco Use Comment F acility Apr 26, 2023 10:00 AM VA-TOBACCO QUIT 15 YRS OR MORE [facility] [place] [facility] Mar 30, 2022 11:00 AM VA-TOBACCO FORMER USER [facility] [place] [facility] Mar 30, 2022 11:00 AM VA-TOBACCO QUIT 15 YRS OR MORE [facility] [place] [facility] Mar 17, 2021 01:30 PM VA-TOBACCO FORMER USER [facility] [place] [facility] Mar 17, 2021 01:30 PM VA-TOBACCO NEVER USED [facility] [place] [facility] Mar 17, 2021 01:30 PM VA-TOBACCO QUIT 15 YRS OR MORE [facility] [place] [place] [facility] Mar 31, 2020 10:30 AM VA-TOBACCO FORMER USER [facility] [place] [facility] Mar 31, 2020 10:30 AM VA-TOBACCO QUIT 15 YRS OR MORE [facility] [place] [place] [facility] Nov 23, 2018 12:07 PM VA-TOBACCO FORMER USER [facility] [place] [facility] Nov 23, 2018 12:07 PM VA-TOBACCO QUIT 15 YRS OR MORE [facility] [place] [facility] Nov 22, 2017 10:02 AM VA-TOBACCO NEVER USED [place] [facility] [place] [facility] Mar 14, 2017 09:31 AM LIFETIME NON-TOBACCO USER [facility] [place] [facility] Mar 01, 2016 02:51 PM LIFETIME NON-TOBACCO USER [facility] [place] [facility] Feb 10, 2015 09:31 AM QUIT TOBACCO USE > 7 YEARS AGO quit in 1964 [place] [facility] [place] [facility] Encounter Notes: All associated encounter notes This section contains the clinical notes associated to the Encounter. Date/Time Encounter Note(s) Provider Source Feb 29, 2024 09:09 AM ADDENDUM: LOCAL TITLE: Addendum STANDARD TITLE: ADDENDUM DATE OF NOTE: FEB 29, 2024@09:09:55 ENTRY DATE: FEB 29, 2024@09:09:56 AUTHOR: RENETTA FRENCH EXP COSIGNER: URGENCY: STATUS: COMPLETED AMSA, please schedule appointment for: - Cwm/No/Tele/Pharm/Pact 2 Please schedule for 04/08/24 @1530 Thank you! /cas/ RENETTA FRENCH PHARMD, BCPS CLINICAL PHARMACIST PRACTITIONER Signed: 02/29/2024 09:10 Receipt Acknowledged By: 02/29/2024 09:21 /es/ RENEE MORRIS AMSA --- Original Document --- 02/29/24 TELEPHONE NOTE/PHARMACY: JACQUELYN BROWN, 83 yo WHITE MALE, presents for telephone follow-up for diabetes management. FEB 14, 2024 Known Allergies: METFORMIN, LISINOPRIL, ATORVASTATIN Subjective: referred to pharmacy clinic for diabetes management. At time of last visit, semaglutide discontinued and insulin glargine-yfgn was increassed. Today pt reports he is doing well. Endorses that he never permanantly changed his insulin dose and has been taking 4 units daily. Reports that on a few days he self titrated to take more insulin (7 units). ADRs from semaglutide are gone; no belching, constipation, nausea, or diarrhea now. Pt feels he is eating more but trying to initiate LSMs. Reports holidays are tougher due to birthday and different foods. Pt interested in semaglutide 0.5mg (a dose he previously tolerated). Denies s/sx of hypoglycemia. Target Goals: A1C: <8%; FB-150 mg/dl Personal goals: - Maintain diabetes - Lose weight - eliminate insulin Objective: Diabetes Medication Regimen: Current diabetes medications: - insulin glargine-yfgn 4 units in the evening Previous diabetes medications: [...] empagliflozin was prescribed but then discontinued. SMBG: FPBG PPBG 02/08/24 100 157 02/09/24 107 176 02/10/24 115 195 02/11/24 119 214 02/12/24 131 195 02/13/24 129 155 02/14/24 125 173 02/15/24 115 160 02/16/24 138 191 02/17/24 129 128 02/18/24 125 128 02/19/24 120 185 02/20/24 107 116 02/21/24 127 181 02/22/24 130 179 02/23/24 123 250 02/24/24 121 159 02/25/24 130 167 02/26/24 115 178 02/27/24 131 193 02/28/24 125 186 02/29/24 129 Average 122 175 date fpbg ppbg 01/13/24 115 133 01/14/24 [...] 120 177 SMBG assessment: FPBG and PPBG MOSTLY AT GOAL HYPOGLYCEMIC Events: 0 in last 2 weeks [...] 14:33) 12/27/23: 214 (naked) 01/08/24: 206 (naked) 02/13/24: 203 Assessment: DIABETES: Goal: A1c goal is <8% with a goal fasting BG average of 90-150mg/dL and a goal post-prandial BG average of <180mg/dL per ADA guideline. Goal adjusted based on age and CKD history. Pt currently at goal (A1C 5.9% 12/27/23). Fasting and post prandial at goal. Discussed semaglutide reinitiation. Pt is interested in discontinuing insulin and losing additional weight. Willing to retitrate to max tolerated dose of 0.5mg weekly. CARDIOVASCULAR: For patients 60 years and over with Diabetes, recommend a goal of <140/90, with added benefit of reducing SBP closer to 130. 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 Plan: Medication management: - CONITNUE insulin glargine-yfgn 4 units once daily - REINITIATE semaglutide 0.25mg once a week for 4 weeks followed by 0.5mg once a week for 2 weeks - Medications reconciled - Otherwise continue current medications Lifestyle modifications: - Continue to SMBG 2x/day - Monitor for s/sx hypoglycemia and contact clinic if BG consistently <70mg/dL - Healthy dietary and lifestyle modifications encouraged - Repeat A1c: 03/2024 MISC: EDUCATION -A shared decision-making approach was used in the development of this plan, involving the [facility], clinician, and any caregivers present. The was provided the opportunity express questions or concerns, and the plan was adjusted as needed to address these concerns. -Reviewed with [facility] any new medications, changes to the medication list, education, and plan from today's visit. Patient (and/or caregiver) verbalized understanding of the plan, including possible known risks and benefits, and had no additional questions. RTC: 04/08/24 @1530 (Tele)(landline) Time Spent: 27 minutes PBM PharmD Pharmacotherapy Rem V12: PHARMACIST INTERVENTIONS: TYPE 2 DIABETES MELLITUS Medication Intervention(s) Initiate new medication Medication reconciliation (changes to active VA and non-VA medication lists to reconcile differences) No changes to medication lists made (medication review completed, no discrepancies identified) /aida FRENCH PHARMD, JOANNA CLINICAL PHARMACIST PRACTITIONER Signed: 02/29/2024 09:09 02/29/2024 ADDENDUM STATUS: COMPLETED DATE CORRECTION: FEB 18 /aida FRENCH PHARMD, JOANNA CLINICAL PHARMACIST PRACTITIONER Signed: 02/29/2024 09:09 RENETTA FRENCH [place] [facility] [place] [facility] Feb 29, 2024 08:40 AM PHARMACY TELEPHONE ENCOUNTER NOTE: LOCAL TITLE: TELEPHONE NOTE/PHARMACY STANDARD TITLE: PHARMACY TELEPHONE ENCOUNTER NOTE DATE OF NOTE: FEB 29, 2024@08:40 ENTRY DATE: FEB 29, 2024@08:40:12 AUTHOR: RENETTA FRENCH EXP COSIGNER: URGENCY: STATUS: COMPLETED TELEPHONE NOTE/PHARMACY Has ADDENDA JACQUELYN BROWN, 83 yo WHITE MALE, presents for telephone follow-up for diabetes management. FEB 14, 2024 Known Allergies: METFORMIN, LISINOPRIL, ATORVASTATIN Subjective: referred to pharmacy clinic for diabetes management. At time of last visit, semaglutide discontinued and insulin glargine-yfgn was increassed. Today pt reports he is doing well. Endorses that he never permanantly changed his insulin dose and has been taking 4 units daily. Reports that on a few days he self titrated to take more insulin (7 units). ADRs from semaglutide are gone; no belching, constipation, nausea, or diarrhea now. Pt feels he is eating more but trying to initiate LSMs. Reports holidays are tougher due to birthday and different foods. Pt interested in semaglutide 0.5mg (a dose he previously tolerated). Denies s/sx of hypoglycemia. Target Goals: A1C: <8%; FB-150 mg/dl Personal goals: - Maintain diabetes - Lose weight - eliminate insulin Objective: Diabetes Medication Regimen: Current diabetes medications: - insulin glargine-yfgn 4 units in the evening Previous diabetes medications: [...] empagliflozin was prescribed but then discontinued. SMBG: FPBG PPBG 02/08/24 100 157 02/09/24 107 176 02/10/24 115 195 02/11/24 119 214 02/12/24 131 195 02/13/24 129 155 02/14/24 125 173 02/15/24 115 160 02/16/24 138 191 02/17/24 129 128 02/18/24 125 128 02/19/24 120 185 02/20/24 107 116 02/21/24 127 181 02/22/24 130 179 02/23/24 123 250 02/24/24 121 159 02/25/24 130 167 02/26/24 115 178 02/27/24 131 193 02/28/24 125 186 02/29/24 129 Average 122 175 date fpbg ppbg 01/13/24 115 133 01/14/24 [...] 120 177 SMBG assessment: FPBG and PPBG MOSTLY AT GOAL HYPOGLYCEMIC Events: 0 in last 2 weeks [...] 14:33) 12/27/23: 214 (naked) 01/08/24: 206 (naked) 02/13/24: 203 Assessment: DIABETES: Goal: A1c goal is <8% with a goal fasting BG average of 90-150mg/dL and a goal post-prandial BG average of <180mg/dL per ADA guideline. Goal adjusted based on age and CKD history. Pt currently at goal (A1C 5.9% 12/27/23). Fasting and post prandial at goal. Discussed semaglutide reinitiation. Pt is interested in discontinuing insulin and losing additional weight. Willing to retitrate to max tolerated dose of 0.5mg weekly. CARDIOVASCULAR: For patients 60 years and over with Diabetes, recommend a goal of <140/90, with added benefit of reducing SBP closer to 130. 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 RTC: 04/08/24 @1530 (Tele)([facility]) Time Spent: 27 minutes PBM PharmD Pharmacotherapy Rem V12: PHARMACIST INTERVENTIONS: TYPE 2 DIABETES MELLITUS Medication Intervention(s) Initiate new medication Medication reconciliation (changes to active VA and non-VA medication lists to reconcile differences) No changes to medication lists made (medication review completed, no discrepancies identified) /aida FRENCH PHARMD, JOANNA CLINICAL PHARMACIST PRACTITIONER Signed: 02/29/2024 09:09 02/29/2024 ADDENDUM STATUS: COMPLETED DATE CORRECTION: FEB 18 /aida FRENCH PHARMD, JOANNA CLINICAL PHARMACIST PRACTITIONER Signed: 02/29/2024 09:09 02/29/2024 ADDENDUM STATUS: COMPLETED AMSA, please schedule appointment for: - Cwm/No/Tele/Pharm/Pact 2 Please schedule for 04/08/24 @1530 Thank you! /aida FRENCH PHARMD, JOANNA CLINICAL PHARMACIST PRACTITIONER Signed: 02/29/2024 09:10 Receipt Acknowledged By: * AWAITING SIGNATURE * RENEE MORRIS [facility]
--- OUTSIDE RECORDS SUMMARY | 2024-03-20 14:04 | XMS_ITS | Encounter Summary ---
Author Name [facility] [place] Address [address] [place] [address] Care Team Providers Care Truck Cleaner Name Role Phone SOFI MANCERA Primary Care [...] Policy [place] MED[place] JONELLE DIAZ [facility] Александр Mar 13, 2015 [id number] VERONICA BROWN RT PATIENT MEDICARE (WNR) MEDICARE (M) PART B Aug 12, 2007 PART B [id number] VERONICA BROWN RT PATIENT MEDICARE (WNR) MEDICARE (M) PART A Jan 12, 2004 PART A [id number] VERONICA BROWN RT PATIENT Selected Encounter This section includes the information on record at [place] for the Encounter. Date/Time Encounter Type Encounter Description Reason Provider Source Mar 08, 2024 10:30 AM INFRARED THERAPY CIH TREATMENT ICD-10-CM M54.9 Dorsalgia, unspecified BRICE WALSH IHE Encounter Template Text not used by [facility] Assessments - Encounter Diagnoses This section includes the primary and secondary diagnoses documented for the Encounter. Date/Time Primary/Secondary Diagnosis Diagnosis Name Provider Source Mar 08, 2024 11:38 AM PRIMARY Dorsalgia, unspecified BRICE WALSH [place] [facility] [place] [facility] Mar 08, 2024 11:38 AM SECONDARY Pain in left shoulder BRICE WALSH [place] [facility] [place] [facility] Mar 08, 2024 11:38 AM SECONDARY Pain in right hip [facility]ICE WALSH [facility] Plan of Treatment: Future Appointments (+ 6 months) and Future Tests (+/- 45 days) The Plan of Treatment section includes future care activities for the patient from all [place] [facility]. This section includes future appointments and [...] 18, 2024 11:00 AM AMBULATORY - MEDICINE [place] [facility] [place] [facility] Mar 25, 2024 10:00 AM AMBULATORY - MEDICINE [place] [facility] [place] [facility] Apr 04, 2024 03:00 PM AMBULATORY MEDICINE [place] C [facility] [place] [facility] Apr 05, 2024 11:00 AM AMBULATORY MEDICINE [place] [facility] [place] [facility] Apr 08, 2024 03:30 PM AMBULATORY - MEDICINE [place] [facility] [place] [facility] Apr 23, 2024 01:00 PM AMBULATORY - MEDICINE [place] [facility] [place] [facility] Apr 30, 2024 10:00 AM AMBULATORY MEDICINE [place] C [facility] [place] [facility] May 03, 2024 01:00 PM AMBULATORY MEDICINE [facility] [place] [facility] Active, Pending, and Scheduled Orders This section includes a listing of several types of active, pending, and scheduled orders, including clinic medications orders, diagnostic test orders, procedure orders and consult orders; where the start date of the order is 45 days before the date of the Encounter or 45 days after the date of theEncounter. The data comes from all [place] treatment facilities. Test Date/Time Test Type Test Details Facility Name Mar 11, 2024 12:00 AM Laboratory - Chemistry Order PO4 BLOOD (SST-SERUM) [facility] Mar 11, 2024 12:00 AM Laboratory - Chemistry Order PTH INTACT BLOOD (RED-PLAIN) SERUM [facility] Mar 11, 2024 12:00 AM Laboratory - Chemistry Order VITAMIN D (25-OH) BLOOD (SST-SERUM) SP [facility] Mar 11, 2024 12:00 AM Laboratory - Chemistry Order CALCIUM BLOOD (SST-SERUM) [facility] Mar 11, 2024 12:00 AM Laboratory - Chemistry Order MAGNESIUM BLOOD (SST-SERUM) [facility] Mar 11, 2024 12:00 AM Laboratory - Chemistry Order MICROALBUMIN CREATININE RATIO PANEL URINE (RANDOM) [facility] Mar 11, 2024 12:00 AM Laboratory - Chemistry Order BASIC METABOLIC PANEL (non-fasting) BLOOD (SST-SERUM) [facility] Mar 11, 2024 12:00 AM Laboratory - Chemistry Order CBC BLOOD (LAV-BLOOD) [facility] Mar 11, 2024 12:00 AM Laboratory - Chemistry Order FERRITIN BLOOD (SST-SERUM) [facility] Mar 11, 2024 12:00 AM Laboratory - Chemistry Order IRON & TIBC PANEL BLOOD (SST-SERUM) [facility] Mar 11, 2024 12:00 AM Laboratory - Chemistry Order LIPID PANEL, NON FASTING BLOOD (SST-SERUM) [facility] Social History: Smoking Status [...] 26, 2023 10:00 AM VA-TOBACCO FORMER USER [place] [facility] [place] [facility] Tobacco Use History This section includes a history of the smoking, or tobacco-related health factors, that were collected on or before the date of the Encounter. The data comes from the [place] facility where the Encounter took place. Date/Time Smoking Status/Tobacco Use Comment F acility Apr 26, 2023 10:00 AM VA-TOBACCO QUIT 15 YRS OR MORE [place] [facility] [place] [facility] Mar 30, 2022 11:00 AM VA-TOBACCO FORMER USER [facility] [place] [facility] Mar 30, 2022 11:00 AM VA-TOBACCO QUIT 15 YRS OR MORE [facility] [place] [facility] Mar 17, 2021 01:30 PM VA-TOBACCO FORMER USER [place] [facility] [place] [facility] Mar 17, 2021 01:30 PM VA-TOBACCO NEVER USED VA [facility] [place] [facility] Mar 17, 2021 01:30 PM VA-TOBACCO QUIT 15 YRS OR MORE [place] [facility] [place] [facility] Mar 31, 2020 10:30 AM VA-TOBACCO FORMER USER [place] [facility] [place] [facility] Mar 31, 2020 10:30 AM VA-TOBACCO QUIT 15 YRS OR MORE [facility] [place] [facility] Nov 23, 2018 12:07 PM VA-TOBACCO FORMER USER VA [facility] [place] [facility] Nov 23, 2018 12:07 PM VA-TOBACCO QUIT 15 YRS OR MORE [facility] [place] [facility] Nov 22, 2017 10:02 AM VA-TOBACCO NEVER USED VA [facility] [place] [facility] Mar 14, 2017 09:31 AM LIFETIME NON-TOBACCO USER [place] [facility] [place] [facility] Mar 01, 2016 02:51 PM LIFETIME NON-TOBACCO USER [place] [facility] [place] [facility] Feb 10, 2015 09:31 AM QUIT TOBACCO USE > 7 YEARS AGO quit in 1963 [place] [facility] [place] [facility] Encounter Notes: All associated encounter notes This section contains the clinical notes associated to the Encounter. Date/Time Encounter Note(s) Provider Source Mar 08, 2024 11:33 AM ACUPUNCTURE NOTE: LOCAL TITLE: ACUPUNCTURE TREATMENT STANDARD TITLE: ACUPUNCTURE NOTE DATE OF NOTE: MAR 08, 2024@11:33 ENTRY DATE: MAR 08, 2024@11:33:17 AUTHOR: DAE WALSH COSIGNER: URGENCY: STATUS: COMPLETED JACQUELYN BROWN is [...] MCALLISTER Arthritis 716.90 01/24/2007 RE MCALLISTER Date Feb CC / HPI - presents with Hx of chronic back pain that started during his service. Injured during a parachute jump and never reported injury. Pain was intermittent for many years but in the past 10 years has become constant and progressively worse. [place] reports that walking any distance will induce [...] at 1/3 output. BM's regular no problems. [place] reports that the personal care service provider he was receiving was very good and his low back has been consistently more comfortable. [place] also states that his left shoulder has been sore especially when raising his arm. [place] thinks it is his positioning when he sleeps that has been aggravating it. [place] is also having right hip pain in addition, with pain radiating into his right thigh down to his knee. Presentation seems to be classic TFL tightness. states otherwise he seems to be doing well. OBJECTIVE General: . Patient in [...] ]Pyonex Needle: remove prior to bathing per wood calker INFORMED CONSENT: Oral Consent obtained on Feb The patient was positioned comfortably. Oral consent [...] ]Torso: [ ]Hip / Glute Area: [X] RUE: LI 4, LI 11 [X] LUE: LI 4, LI 11, LI 15, TH 14, HAYDEN 1 [X] RLE: GB 34, ST 36, SP 9, SP 6, GB 40, KD 3, LR 3 [X] LLE: GB 34, ST 36, SP 9, SP 6, GB 40, KD 3, LR 3 Set 2 TIME SPENT: 15 Minutes Position:[X]Prone [...] new consult is required /cas/ DAE WALSH LA.C, DIPL.AC JEWEL BEARING DRILLER Signed: 03/08/2024 11:39 DAE WALSH [facility]
--- OUTSIDE RECORDS SUMMARY | 2024-03-20 14:05 | XMS_ITS | Patient Health Record ---
Author Organization [facility] [place]h [place] Address [address] [place] [address] Care Team Providers Care Carpet Inspector Finished Name Role Phone Al Petit MD Primary Care Provider Cheryle Mims Unavailable [phone] Allergies Allergen (clinical drug ingredient) Drug/Non Drug Allergy documented on EMR Reaction Allergy Type Onset Date Status Hayfever (uncoded) Unknown Allergy A ctive Reason For Referral No Information Medications Medication SIG (Take, Route, Frequency, Duration) Notes Start Date End Date Status Lantus Active NovoLOG Active Allopurinol 300 MG 1 tablet Orally Once a day Active Potassium Citrate Ac tive flu vaccine Not-Taki ng Tetanus Not-Taking Extra Depth Orthopedic Shoes (1 Pair) with Customized Heat Molded Multidensity Innersoles (3 Pair) as directed Dx: NIDDM (E11.9), 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,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), 08/02/2018 Not-Taking Cetirizine HCl Not-T aking Tamsulosin HCl 0.4 MG 1 capsule Orally Once a day for 30 day(s) Active amLODIPine Besylate 2.5 MG Orally Not-Taking Colchicine 0.6 MG 1 tablet Orally Once a day for as needed Not-Taking Augmentin 500-125 MG as directed Orally every 12 hrs for 10 days 07/11/2016 Not-Taking Chlorpheniramine Maleate Not-Taking Keflex 500 MG 1 capsule Orally every 12 hrs for 10 day(s) 03/21/2016 Not-Taking Pneumovax 23 Not-Ilya ing Atorvastatin Calcium Active Glucose 4 GM as directed Orally Active Night Splint AFO - L1930 as directed 10/16/2015 Unknown Carboxymethylcellulose Sodiu m 0.5 % as directed Ophthalmic Active Multivitamin Active Metoprolol & Diet Manage Pro d 50 MG Orally 1 a day Unknown Insulin Active Aspir-81 81 MG 1 tablet Orally Once a day Unknown Omeprazole 20 MG 1 capsule Orally Once a day Unknown Metoprolol Succinate Active Rosuvastatin Calcium 20 MG 1 tablet Oral ly Once a day Unknown Immunizations Vaccine Route Administration Date Status Comme nts Influenza Unknown 01/12/2015 Administered Influenza Unknown 12/14/2015 Administered Influenza Unknown 01/23/2017 Administered Influenza Unknown 01/11/2018 Administered Influenza Unknown 01/31/2019 Administered Pneumococcal Unknown 03/13/2015 Administered Social History Tobacco Use: Social History Observation Description Date Details (start date - stop date) Never Smoker NA - NA Tobacco Use/Smoking Question Answer Notes Are you a: nonsmoker Additional Findings: Tobacco Non-User Current no n-smoker Alcohol Screen Question Answer Notes Did you have a drink containing alcohol in the p ast year? No Points 0 Interpretation Negative Tobacco use other than smoking: Question Answer Notes Are you an other tobacco user? 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) Active confirmed Problem Type II diabetes mellitus without complication (260271700) Type 2 diabetes mellitus without complications (E11.9) Active confirmed Problem 57570433 Cellulitis of great toe of right foot (L03.031) Active confirmed Plan Of Treatment Pending Test Test Name Order Date *Uric Acid, Serum 07/07/2016 *CBC With Differential/Platelet 07/08/19 17 *Sedimentation Rate-Westergren 07/07/201 7 59771-IRLCQAE NAIL, -05/09/2016 41335-EEYUYEN NAIL, -05/11/2017 48982-NKYADGG NAIL, -08/10/2017 24723-QAICMWF NAIL, -11/09/2017 89423-NVFQXDI NAIL, -02/08/2018 70036-ICAPODT NAIL, -05/10/2018 22739-EMZBEMH NAIL, -08/02/2018 40307-QSKCOQS NAIL, 1-5 11/08/2018 18802-NYTRXOT NAIL, 1-5 02/11/2019 00246-Nxyvhxfv Plate 05/11/2017 72705-Nceypmmb Plate 06/29/2016 79916-Bjukvznv Plate 11/06/2014 14235-Gylinzzz Plate 10/16/2015 48420-Dqzdnnkx Plate 10/23/2015 65006-Wrtqqyqh Plate 11/11/2015 67970-YJN 02/29/2016 03137- Debride <25 sq cm 04/04/2016 33797- Debride <25 sq cm 05/09/2016 30889- Debride <25 sq cm 11/21/2014 50819- Debride <25 sq cm 05/25/2017 29778-CQMAROL SKIN/TISSUE 03/21/2016 98851-HXCA SKIN LESIONS, 2 TO 4 08/03/19 39982-LPAK SKIN LESIONS, 2 TO 4 11/09/19 93557-JJBK SKIN LESION 05/11/2017 21567-LJKG NAIL(S) 05/11/2017 77060-QNZG NAIL(S) 08/02/2018 85698-GRTV NAIL(S) 02/11/2019 19896-FWZJ NAIL(S) 11/08/2018 96248-TYFC NAIL(S) 05/10/2018 48301-TLQP NAIL(S) 02/08/2018 59338-ZMAF NAIL(S) 11/09/2017 83053-LKJU NAIL(S) 08/10/2017 45307,D6485-OZA TENDON SHEATH/LIGAMENT 0 10/29/2015 Insurance Providers Payer Name Payer Address Payer Phone Subscriber Number Group Number Insured Name Patient Relationship to Insured Coverage Start Date Coverage End Date Medicare National [employer] [address] [facility] [place] [address] [id number] [place] Self - patient is the insured 4 [employer] [address] [place] [address] [id number] Segun Fields Self - patient is the insured Medical (General) History Medical History History ICD Code Cataracts Diabetic Diverticulosis Macular degeneration Kidney disease High blood pressure Reflux Gout Cholesterol Basal cell carcinoma Hypertensive disorder Back pain Arthritis Surgical History Surgery Date(Month/Year) laser surgery kidney surgery basal cell carcinoma 07/13/18 Hospitalization History Reason Date(Month/Year) admitted [facility] for anxiety keep eye on hea rt 06/11/2015
--- OUTSIDE RECORDS SUMMARY | 2024-03-20 14:05 | XMS_ITS ---
Author Name [facility] [place] Organization [facility] [place] Address [address] [place] [address] Care Team Providers Care Neckties Painter Name Role Phone NERI MANCERA Primary Care Provider Unavailjr haque Insurance Providers: All historical and current [...] [place] JONELLE Haque Mar 13, 2015 [id number] VERONICA BROWN RT PATIENT MEDICARE (WNR) MEDICARE (M) PART B Aug 12, 2007 PART B [id number] VERONICA BROWN RT PATIENT MEDICARE (WNR) MEDICARE (M) PART A Jan 12, 2004 PART A [id number] VERONICA BROWN RT PATIENT Selected Encounter This section includes the information on record at [place] for the Encounter. Date/Time Encounter Type Encounter Description Reason Pro vider Source Mar 12, 2024 12:48 PM Outpatient Encounter TELEPHONE CASE MANAGEMENT IHE Encounter Template Text not used by [place] Plan of Treatment: Future Appointments (+ 6 months) and Future Tests (+/- 45 days) The Plan of Treatment section includes future care activities for the patient from all [place] [facility]. This section includes future appointments and future orders which are active, pending or scheduled. Future Appointments This section includes appointments that were scheduled to occur 6 months from the date of the Encounter, up to a maximum of 20 appointments. The data comes from all [facility]. Appointment Date/Time Appointment Type Appointme nt Facility Name Mar 18, 2024 11:00 AM AMBULATORY - MEDICINE [place] [facility] [place] [facility] Mar 25, 2024 10:00 AM AMBULATORY MEDICINE MD C [facility] [place] [facility] Apr 04, 2024 03:00 PM AMBULATORY MEDICINE MD [facility] [place] [facility] Apr 05, 2024 11:00 AM AMBULATORY MEDICINE MD C [facility] [place] [facility] Apr 08, 2024 03:30 PM AMBULATORY MEDICINE MD C [facility] [place] [facility] Apr 23, 2024 01:00 PM AMBULATORY MEDICINE MD C [facility] [place] [facility] Apr 30, 2024 10:00 AM AMBULATORY MEDICINE MD [facility] [place] [facility] May 03, 2024 01:00 PM AMBULATORY MEDICINE MD C [facility] [place] [facility] Active, Pending, and Scheduled Orders This section includes a listing of several types of active, pending, and scheduled orders, including clinic medications orders, diagnostic test orders, procedure orders and consult orders; where the start date of the order is 45 days before the date of the Encounter or 45 days after the date of theEncounter. The data comes from all [facility]. Test Date/Time Test Type Test Details Facility Name Mar 11, 2024 12:00 AM Laboratory - Chemistry Order PO4 BLOOD (SST-SERUM) [facility] Mar 11, 2024 12:00 AM Laboratory - Chemistry Order PTH INTACT BLOOD (RED-PLAIN) SERUM [facility] Mar 11, 2024 12:00 AM Laboratory - Chemistry Order VITAMIN D (25-OH) BLOOD (SST-SERUM) [facility] Mar 11, 2024 12:00 AM Laboratory - Chemistry Order MAGNESIUM [facility] ([facility]UM) [facility] Mar 11, 2024 12:00 AM Laboratory - Chemistry Order CALCIUM BLOOD (SST-SERUM) [facility] Mar 11, 2024 12:00 AM Laboratory - Chemistry Order MICROALBUMIN CREATININE RATIO PANEL URINE (RANDOM) [facility] Mar 11, 2024 12:00 AM Laboratory - Chemistry Order BASIC METABOLIC PANEL (non-fasting) BLOOD (SST-SERUM) [facility] Mar 11, 2024 12:00 AM Laboratory - Chemistry Order CBC BLOOD (LAV-BLOOD) [facility] Mar 11, 2024 12:00 AM Laboratory - Chemistry Order FERRITIN BLOOD (SST-SERUM) [facility] Mar 11, 2024 12:00 AM Laboratory - Chemistry Order IRON & TIBC PANEL BLOOD (SST-SERUM) [facility] Mar 11, 2024 12:00 AM Laboratory - Chemistry Order LIPID PANEL, NON FASTING BLOOD (SST-SERUM) [facility] Social History: Smoking Status (Most current) [...] Elena ity Apr 26, 2023 10:00 AM MD-TOBACCO FORMER USER [facility] Tobacco Use History This section includes a history of the smoking, or tobacco-related health factors, that were collected on or before the date of the Encounter. The data comes from the [place] facility where the Encounter took place. Date/Time Smoking Status/Tobacco Use Comment F acility Apr 26, 2023 10:00 AM MD-TOBACCO QUIT 15 YRS OR MORE [facility] Mar 30, 2022 11:00 AM VA-TOBACCO FOR[facility]ER [facility] Mar 30, 2022 11:00 AM MD-TOBACCO QUIT 15 YRS OR MORE [facility] [place] [facility] Mar 17, 2021 01:30 PM VA-TOBACCO FORMER USER [facility] [place] [facility] Mar 17, 2021 01:30 PM VA-TOBACCO NEVER USED [place] [facility] [place] [facility] Mar 17, 2021 01:30 PM VA-TOBACCO QUIT 15 YRS OR MORE [facility] [place] [facility] Mar 31, 2020 10:30 AM VA-TOBACCO FORMER USER [facility] [place] [facility] Mar 31, 2020 10:30 AM VA-TOBACCO QUIT 15 YRS OR MORE [facility] [place] [facility] Nov 23, 2018 12:07 PM VA-TOBACCO FORMER USER [facility] [place] [facility] Nov 23, 2018 12:07 PM VA-TOBACCO QUIT 15 YRS OR MORE [facility] [place] [facility] Nov 22, 2017 10:02 AM VA-TOBACCO NEVER USED [place] [facility] [place] [facility] Mar 14, 2017 09:31 AM LIFETIME NON-TOBACCO USER [facility] [place] [facility] Mar 01, 2016 02:51 PM LIFETIME NON-TOBACCO USER [facility] [place] [facility] Feb 10, 2015 09:31 AM QUIT TOBACCO USE > 7 YEARS AGO quit in 1964 [place] [facility] [place] [facility] Encounter Notes: All associated encounter notes This section contains the clinical notes associated to the Encounter. Date/Time Encounter Note(s) Provider Source Mar 12, 2024 12:48 PM NONVA NOTE: LOCAL TITLE: COMMUNITY CARE-ISAIAH SELF PRESENTING CARE COORD PLAN STANDARD TITLE: NONVA NOTE DATE OF NOTE: MAR 12, 2024@12:48 ENTRY DATE: MAR 12, 2024@12:48:54 AUTHOR: KAIT FAYE COSIGNER: URGENCY: STATUS: COMPLETED COMMUNITY CARE-ISAIAH SELF PRESENTING CARE COORD PLAN NOTE Has ADDENDA Emergency Notification Intake Date Presenting to the Facility: Feb Method of Contact: hospital [facility] Name: Hospital: [facility] Address: City: [place] State: [place] Zip Code: Phone : Community Facility Point of Contact: Name: Phone: Chief complaint: right upper and lower extremity weakness and dysarthria Primary Diagnosis: right sided weakness Disposition Admitted Route of Admission: ER Date of Admission: Feb Admitting Diagnosis: right sided weakness Community Care Provider: Confirm Level of Care: Intermediate Care /cas/ Kait Faye MSN,RN,[facility] TRANSFER/TRAVELING COORDINATOR Signed: 03/12/2024 12:52 Receipt Acknowledged By: 03/12/2024 12:54 /es/ Neri Mancera MD Staff Physician 03/12/2024 13:20 /es/ Jeanette Garcia RN, BSN Primary Care 03/12/2024 16:16 /cas/ SEAN MICHEL 03/12/2024 ADDENDUM STATUS: COMPLETED Notification ID [id number] /aida [facility] Signed: 03/12/2024 16:16 03/14/2024 ADDENDUM STATUS: COMPLETED Lindley admitted to [facility] 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 LUCRECIA Anaya her number is [phone] /cas/ NANCY PEREZ Registered Nurse Insurance Claims Supervisor Signed: 03/14/2024 10:42 KAIT FAYE [facility]
--- OUTSIDE RECORDS SUMMARY | 2024-03-20 14:05 | XMS_ITS ---
Author Name [facility] [place] Organization [facility] [place] Address [address] [place] [address] Care Team Providers Care Aircraft Log Clerk Name Role Phone SOFI MANCERA Primary Care [...] Policy [place] BC[place] MED[place]ARE SUPPLEMEN [facility] Александр Mar 13, 2015 [id number] VERONICA BROWN RT PATIENT MEDICARE (WNR) MEDICARE (M) PART B Aug 12, 2007 PART B [id number] VERONICA BROWN RT PATIENT MEDICARE (WNR) MEDICARE (M) PART A Jan 12, 2004 PART A [id number] VERONICA BROWN RT PATIENT Selected Encounter This section includes the information on record at [place] for the Encounter. Date/Time Encounter Type Encounter Description Reason Provider Source Mar 18, 2024 11:00 AM OFF/OP EST JULY X REQ PHY/QHP PRIMARY CARE/MEDICINE ICD-10-CM Z71.89 Other specified counseling JEANETTE GARCIA [facility] Encounter Template Text not used by [place] Assessments - Encounter Diagnoses This section includes the primary and secondary diagnoses documented for the Encounter. Date/Time Primary/Secondary Diagnosis Diagnosis Name Provider Source Mar 18, 2024 01:38 PM PRIMARY Other specified counseling JEANETTE GARCIA [facility] Plan of Treatment: Future Appointments (+ 6 months) and Future Tests (+/- 45 days) The Plan of Treatment section includes future care activities for the patient from all [place] [facility]. This section includes future appointments and future orders which are active, pending or scheduled. Future Appointments This section includes appointments that were scheduled to occur 6 months from the date of the Encounter, up to a maximum of 20 appointments. The data comes from all [facility]. Appointment Date/Time Appointment Type Appointme nt Facility Name Mar 25, 2024 10:00 AM AMBULATORY - MEDICINE [facility] N[facility] Apr 04, 2024 03:00 PM AMBULATORY MEDICINE [facility] NTRL TRN [facility] Apr 05, 2024 11:00 AM AMBULATORY - MEDICINE [facility] Apr 08, 2024 03:30 PM [facility]ULATORY [facility] Apr 23, 2024 01:00 PM AMBULATORY MEDICINE [facility] Apr 30, 2024 10:00 AM AMBULATORY MEDICINE [facility] May 03, 2024 01:00 PM [facility] Active, Pending, and Scheduled Orders This section includes a listing of several types of active, pending, and scheduled orders, including clinic medications orders, diagnostic test orders, procedure orders and consult orders; where the start date of the order is 45 days before the date of the Encounter or 45 days after the date of theEncounter. The data comes from all [facility]. Test Date/Time Test Type Test Details Facility Name Mar 11, 2024 12:00 AM Laboratory - Chemistry [facility] Mar 11, 2024 12:00 AM Laboratory - Chemistry Order PTH INTACT BLOOD (RED-PLAIN) SERUM SP [facility] Mar 11, 2024 12:00 AM Laboratory - Chemistry Order VITAMIN D (25-OH) BLOOD (SST-SERUM) SP ONCE [facility] Mar 11, 2024 12:00 AM Laboratory - Chemistry Order CALCIUM BLOOD (SST-SERUM) [facility] Mar 11, 2024 12:00 AM Laboratory - Chemistry Order MAGNESIUM BLOOD (SST-SERUM) [facility] Mar 11, 2024 12:00 AM Laboratory - Chemistry Order MICROALBUMIN CREATININE RATIO PANEL URINE (RANDOM) [facility] Mar 11, 2024 12:00 AM Laboratory - Chemistry Order BASIC METABOLIC PANEL (non-fasting) BLOOD (SST-SERUM) [facility] Mar 11, 2024 12:00 AM Laboratory - Chemistry Order CBC BLOOD (LAV-BLOOD) [facility] Mar 11, 2024 12:00 AM Laboratory - Chemistry Order FERRITIN BLOOD (SST-SERUM) [facility] Mar 11, 2024 12:00 AM Laboratory - Chemistry Order IRON & TIBC PANEL BLOOD (SST-SERUM) [facility] Mar 11, 2024 12:00 AM Laboratory - Chemistry Order LIPID PANEL, NON FASTING BLOOD (SST-SERUM) [facility] Social History: Smoking Status (Most current) [...] Facil ity Apr 26, 2023 10:00 AM [place]-TOBACCO FORMER USER [facility] Tobacco Use History This section includes a history of the smoking, or tobacco-related health factors, that were collected on or before the date of the Encounter. The data comes from the [place] facility where the Encounter took place. Date/Time Smoking Status/Tobacco Use Comment F acility Apr 26, 2023 10:00 AM VA-TOBACCO QUIT 15 YRS OR MORE [facility] [place] [facility] Mar 30, 2022 11:00 AM VA-TOBACCO FORMER USER [facility] [place] [facility] Mar 30, 2022 11:00 AM VA-TOBACCO QUIT 15 YRS OR MORE [facility] [place] [facility] Mar 17, 2021 01:30 PM VA-TOBACCO FORMER USER [facility] [place] [facility] Mar 17, 2021 01:30 PM VA-TOBACCO NEVER USED [place] [facility] [place] [facility] Mar 17, 2021 01:30 PM VA-TOBACCO QUIT 15 YRS OR MORE [facility] [place] [facility] Mar 31, 2020 10:30 AM VA-TOBACCO FORMER USER [facility] [place] [facility] Mar 31, 2020 10:30 AM VA-TOBACCO QUIT 15 YRS OR MORE [facility] [place] [facility] Nov 23, 2018 12:07 PM VA-TOBACCO FORMER USER [facility] [place] [facility] Nov 23, 2018 12:07 PM VA-TOBACCO QUIT 15 YRS OR MORE [place] [facility] [place] [facility] Nov 22, 2017 10:02 AM VA-TOBACCO NEVER USED VA [facility] [place] [facility] Mar 14, 2017 09:31 AM LIFETIME NON-TOBACCO USER [facility] [place] [facility] Mar 01, 2016 02:51 PM LIFETIME NON-TOBACCO USER [place] [facility] [place] [facility] Feb 10, 2015 09:31 AM QUIT TOBACCO USE > 7 YEARS AGO quit in 1964 [place] [facility] Encounter Notes: All associated encounter notes This section contains the clinical notes associated to the Encounter. Date/Time Encounter Note(s) Provider Source Mar 18, 2024 01:37 PM [facility]: LOCAL TITLE: AMBULATORY/OUTPATIENT CARE NOTE STANDARD TITLE: PRIMARY CARE OUTPATIENT NOTE DATE OF NOTE: MAR 18, 2024@13:37 ENTRY DATE: MAR 18, 2024@13:37:16 AUTHOR: JEANETTE GARCIA COSIGNER: URGENCY: STATUS: COMPLETED [place] came to clinic to report he had a stroke and was in ER. They changed medication. He has a hand written script, which he will bring to pharmacy. I will request notes. He has been scheduled for a post hosp d/c appt in 7 days. /cas/ Jeanette Garcia RN, BSN Primary Care Signed: 03/18/2024 13:38 JEANETTE GARCIA [facility]
--- OUTSIDE RECORDS SUMMARY | 2024-03-20 14:05 | XMS_ITS | Encounter Summary ---
Author Name [facility] [place] [facility] [place] Address [address] [place] [address] Care Team Providers Care Health Editor Name Role Phone SOFI MANCERA Primary [...] [place] MEDICARE JONELLE Haque Mar 13, 2015 [id number] VERONICA BROWN RT PATIENT MEDICARE (WNR) MEDICARE (M) PART B Aug 12, 2007 PART B [id number] VERONICA BROWN RT PATIENT MEDICARE (WNR) MEDICARE (M) PART A Jan 12, 2004 PART A [id number] VERONICA BROWN RT PATIENT Selected Encounter This section includes the information on record at [place] for the Encounter. Date/Time Encounter Type Encounter Description Reason Pro vider Source Mar 15, 2024 12:00 AM Outpatient Encounter EVENT (HISTORICAL) [facility] Encounter Template Text not used by VA Plan of Treatment: Future Appointments (+ 6 months) and Future Tests (+/- 45 days) The Plan of Treatment section includes future care activities for the patient from all [place] [facility]. This section includes future appointments and future orders which are active, pending or scheduled. Future Appointments This section includes appointments that were scheduled to occur 6 months from the date of the Encounter, up to a maximum of 20 appointments. The data comes from all [facility]. Appointment Date/Time Appointment Type Appointme nt Facility Name Mar 18, 2024 11:00 AM AMBULATORY - MEDICINE [place] C [place] [place] [facility] Mar 25, 2024 10:00 AM AMBULATORY MEDICINE [place] C [place] [facility] Apr 04, 2024 03:00 PM AMBULATORY MEDICINE [place] C [place] [place] [facility] Apr 05, 2024 11:00 AM AMBULATORY MEDICINE [place] C [facility] [place] [facility] Apr 08, 2024 03:30 PM AMBULATORY MEDICINE [place] C [facility]TRL [place] [facility] Apr 23, 2024 01:00 PM AMBULATORY MEDICINE [place] C [facility] [place] [facility] Apr 30, 2024 10:00 AM AMBULATORY MEDICINE [place] C [facility]TRL [place] [facility] May 03, 2024 01:00 PM AMBULATORY MEDICINE [facility] [place] [facility] Active, Pending, and Scheduled Orders This section includes a listing of several types of active, pending, and scheduled orders, including clinic medications orders, diagnostic test orders, procedure orders and consult orders; where the start date of the order is 45 days before the date of the Encounter or 45 days after the date of theEncounter. The data comes from all [facility]. Test Date/Time Test Type Test Details Facility Name Mar 11, 2024 12:00 AM Laboratory - Chemistry Order PO4 BLOOD (SST-SERUM) [facility] Mar 11, 2024 12:00 AM Laboratory - Chemistry Order PTH INTACT BLOOD (RED-PLAIN) [facility] Mar 11, 2024 12:00 AM Laboratory - Chemistry Order VITAMIN D (25-OH) BLOOD (SST-SERUM) [facility] Mar 11, 2024 12:00 AM Laboratory - Chemistry Order MAGNESIUM BLOOD (SST-SERUM) [facility] Mar 11, 2024 12:00 AM Laboratory - Chemistry Order CALCIUM BLOOD (SST-SERUM) [facility] Mar 11, 2024 12:00 AM Laboratory - Chemistry Order BASIC METABOLIC PANEL (non-fasting) BLOOD (SST-SERUM) [facility] Mar 11, 2024 12:00 AM Laboratory - Chemistry Order CBC BLOOD (LAV-BLOOD) [facility] Mar 11, 2024 12:00 AM Laboratory - Chemistry Order MICROALBUMIN CREATININE RATIO PANEL URINE (RANDOM) [facility] Mar 11, 2024 12:00 AM Laboratory - Chemistry Order FERRITIN BLOOD (SST-SERUM) [facility] Mar 11, 2024 12:00 AM Laboratory - Chemistry Order IRON & TIBC PANEL BLOOD (SST-SERUM) [facility] Mar 11, 2024 12:00 AM Laboratory - Chemistry Order LIPID PANEL, NON FASTING BLOOD (SST-SERUM) [facility] Social History: Smoking Status (Most current) [...] Elena armijo Apr 26, 2023 10:00 AM [place]-TOBACCO QUIT 15 YRS OR MORE [facility] Tobacco Use History This section includes a history of the smoking, or tobacco-related health factors, that were collected on or before the date of the Encounter. The data comes from the [place] facility where the Encounter took place. Date/Time Smoking Status/Tobacco Use Comment F acshahbaz Apr 26, 2023 10:00 AM [place]-TOBACCO QUIT 15 YRS OR MORE [facility] Mar 30, 2022 11:00 AM [place]-TOBACCO FORMER USER [facility] Mar 30, 2022 11:00 AM VA-TOBACCO QUIT 15 YRS OR MORE [place] [facility] [place] [facility] Mar 17, 2021 01:30 PM VA-TOBACCO FORMER USER [place] [facility] [place] [facility] Mar 17, 2021 01:30 PM VA-TOBACCO NEVER USED VA [facility] [place] [facility] Mar 17, 2021 01:30 PM VA-TOBACCO QUIT 15 YRS OR MORE [place] [facility] [place] [facility] Mar 31, 2020 10:30 AM VA-TOBACCO FORMER USER [place] [facility] [place] [facility] Mar 31, 2020 10:30 AM VA-TOBACCO QUIT 15 YRS OR MORE [place] [facility] [place] [facility] Nov 23, 2018 12:07 PM VA-TOBACCO FORMER USER [place] [facility] [place] [facility] Nov 23, 2018 12:07 PM VA-TOBACCO QUIT 15 YRS OR MORE [place] [facility] [place] [facility] Nov 22, 2017 10:02 AM VA-TOBACCO NEVER USED [place] CNTR [place] [facility] Mar 14, 2017 09:31 AM LIFETIME NON-TOBACCO USER [facility] [place] [facility] Mar 01, 2016 02:51 PM LIFETIME NON-TOBACCO USER [place] [facility] [place] [place] [facility] Feb 10, 2015 09:31 AM QUIT TOBACCO USE > 7 YEARS AGO quit in 1964 [place] [facility]
--- OUTSIDE RECORDS SUMMARY | 2024-03-20 14:05 | XMS_ITS | Encounter Summary ---
Author Name [facility] of [facility] [place] [facility] [place] Organization [facility] [place] Address [address] [place] [address] Care Team Providers Care Chef Saucier Name Role Phone SOFI MANCERA Primary Care [...] [place] MEDICARE JONELLE Haque Mar 13, 2015 [id number] VERONICA BROWN RT PATIENT MEDICARE (WNR) MEDICARE (M) PART B Aug 12, 2007 PART B [id number] VERONICA BROWN RT PATIENT MEDICARE (WNR) MEDICARE (M) PART A Jan 12, 2004 PART A [id number] VERONICA BROWN RT PATIENT Selected Encounter This section includes the information on record at [place] for the Encounter. Date/Time Encounter Type Encounter Description Reason Pro vider Source Mar 12, 2024 12:00 AM Outpatient Encounter EVENT (HISTORICAL) [facility] Encounter Template Text not used by VA Plan of Treatment: Future Appointments (+ 6 months) and Future Tests (+/- 45 days) The Plan of Treatment section includes future care activities for the patient from all [place] [facility]. This section includes future appointments and future orders which are active, pending or scheduled. Future Appointments This section includes appointments that were scheduled to occur 6 months from the date of the Encounter, up to a maximum of 20 appointments. The data comes from all [facility]. Appointment Date/Time Appointment Type Appointme nt Facility Name Mar 18, 2024 11:00 AM AMBULATORY - MEDICINE [place] [facility] [place] [facility] Mar 25, 2024 10:00 AM AMBULATORY MEDICINE [place] C [facility]L [place] [facility] Apr 04, 2024 03:00 PM AMBULATORY MEDICINE [place] C [facility]L [place] [facility] Apr 05, 2024 11:00 AM AMBULATORY MEDICINE [place] C [facility]TRL [place] [facility] Apr 08, 2024 03:30 PM AMBULATORY MEDICINE [place] C [facility]TRL [place] [facility] Apr 23, 2024 01:00 PM AMBULATORY MEDICINE [place] C [facility]TRL [place] [facility] Apr 30, 2024 10:00 AM AMBULATORY MEDICINE [place] C NTRL [place] [facility] May 03, 2024 01:00 PM AMBULATORY MEDICINE [facility] [place] [facility] Active, Pending, and Scheduled Orders This section includes a listing of several types of active, pending, and scheduled orders, including clinic medications orders, diagnostic test orders, procedure orders and consult orders; where the start date of the order is 45 days before the date of the Encounter or 45 days after the date of theEncounter. The data comes from all [facility]. Test Date/Time Test Type Test Details Facility Name Mar 11, 2024 12:00 AM Laboratory - Chemistry Order PO4 BLOOD (SST-SERUM) [facility] Mar 11, 2024 12:00 AM Laboratory - Chemistry Order PTH INTACT BLOOD (RED-PLAIN) [facility] Mar 11, 2024 12:00 AM Laboratory - Chemistry Order VITAMIN D (25-OH) BLOOD (SST-SERUM) SP [facility] Mar 11, 2024 12:00 AM Laboratory - Chemistry Order CALCIUM BLOOD (SST-SERUM) [facility] Mar 11, 2024 12:00 AM Laboratory - Chemistry Order MAGNESIUM BLOOD (SST-SERUM) [facility] Mar 11, 2024 12:00 AM Laboratory - Chemistry Order MICROALBUMIN CREATININE RATIO PANEL URINE (RANDOM) [facility] Mar 11, 2024 12:00 AM Laboratory - Chemistry Order BASIC METABOLIC PANEL (non-fasting) BLOOD (SST-SERUM) [facility] Mar 11, 2024 12:00 AM Laboratory - Chemistry Order CBC BLOOD (LAV-BLOOD) [facility] Mar 11, 2024 12:00 AM Laboratory - Chemistry Order FERRITIN BLOOD (SST-SERUM) [facility] Mar 11, 2024 12:00 AM Laboratory - Chemistry Order IRON & TIBC PANEL BLOOD (SST-SERUM) [facility] Mar 11, 2024 12:00 AM Laboratory - Chemistry Order LIPID PANEL, NON FASTING BLOOD (SST-SERUM) [facility] Social History: Smoking Status (Most current) and Tobacco Use (All prior to encounter date) This section includes the most current, and the historical, smoking and tobacco- related health factors from the [place] facility where the Encounter took place. Current Smoking Status This section includes the most current smoking, or tobacco-related health factor, from the [place] facility where the Encounter took place. Date/Time Current Smoking Status Comment María Elena ity Apr 26, 2023 10:00 AM [place]-TOBACCO FORMER USER [facility] Tobacco Use History This section includes a history of the smoking, or tobacco-related health factors, that were collected on or before the date of the Encounter. The data comes from the [place] facility where the Encounter took place. Date/Time Smoking Status/Tobacco Use Comment F acility Apr 26, 2023 10:00 AM [place]-TOBACCO QUIT 15 YRS OR MORE [facility] Mar 30, 2022 11:00 AM VA-TOBACCO FORMER USER [facility] Mar 30, 2022 11:00 AM [place]-TOBACCO QUIT 15 YRS OR MORE [facility] [place] [facility] Mar 17, 2021 01:30 PM VA-TOBACCO FORMER USER [facility] [place] [facility] Mar 17, 2021 01:30 PM VA-TOBACCO NEVER USED VA [facility] [place] [facility] Mar 17, 2021 01:30 PM VA-TOBACCO QUIT 15 YRS OR MORE [place] [facility] [place] [facility] Mar 31, 2020 10:30 AM VA-TOBACCO FORMER USER [facility] [place] [facility] Mar 31, 2020 10:30 AM VA-TOBACCO QUIT 15 YRS OR MORE [place] [facility] [place] [facility] Nov 23, 2018 12:07 PM VA-TOBACCO FORMER USER [facility] [place] [facility] Nov 23, 2018 12:07 PM VA-TOBACCO QUIT 15 YRS OR MORE [facility] [place] [facility] Nov 22, 2017 10:02 AM VA-TOBACCO NEVER USED OR [facility]TRL [facility] [place] [facility] Mar 14, 2017 09:31 AM LIFETIME NON-TOBACCO USER [facility] [place] [facility] Mar 01, 2016 02:51 PM LIFETIME NON-TOBACCO USER [facility] [place] [facility] Feb 10, 2015 09:31 AM QUIT TOBACCO USE > 7 YEARS AGO quit in [address] [place] [address] [facility] [place] [facility]
--- OUTSIDE RECORDS SUMMARY | 2024-03-20 14:05 | XMS_ITS ---
Author Name [facility] [place] [facility] [place] Address [address] [place] [address] Care Team Providers Care Welder Name Role Phone SOFI MANCEAR Primary Care Provider Unavailrj haque Insurance Providers: [...] [employer] CHARAN Haque Mar 13, 2015 [id number] VERONICA BROWN RT PATIENT MEDICARE (WNR) MEDICARE (M) PART B Aug 12, 2007 PART B [id number] VERONICA BROWN RT PATIENT MEDICARE (WNR) MEDICARE (M) PART A Jan 12, 2004 PART A [id number] VERONICA BROWN RT PATIENT Selected Encounter This section includes the information on record at [place] for the Encounter. Date/Time Encounter Type Encounter Description Reason Pro vider Source Mar 18, 2024 09:08 AM Outpatient Encounter ADMIN PAT ACTIVTIES (MASNONCT) IHE Encounter Template Text not used by [place] Plan of Treatment: Future Appointments (+ 6 months) and Future Tests (+/- 45 days) The Plan of Treatment section includes future care activities for the patient from all [place] [facility] This section includes future appointments and future orders which are active, pending or scheduled. Future Appointments This section includes appointments that were scheduled to occur 6 months from the date of the Encounter, up to a maximum of 20 appointments. The data comes from all [facility]. Appointment Date/Time Appointment Type Appointme nt Facility Name Mar 25, 2024 10:00 AM AM[place]ULATORY [place]ICINE [place] [facility] [place] [facility] Apr 04, 2024 03:00 PM AM[place]UL[place]INE [place] [facility] [facility] Apr 05, 2024 11:00 AM AM[place]UL[place]ORY [place]ICINE [place] [facility] [place] [facility] Apr 08, 2024 03:30 PM AMBULATORY [place]ICINE [place] [facility] [place] [facility] Apr 23, 2024 01:00 PM AM[place]UL[place]ORY [place]INE [place] [facility] [place] [facility] Apr 30, 2024 10:00 AM AM[place]ULATORY [place]ICINE [place] [facility] [facility] May 03, 2024 01:00 PM AMBUL[place]ORY [place]ICINE [place] [facility] [place] [facility] Active, Pending, and Scheduled Orders This section includes a listing of several types of active, pending, and scheduled orders, including clinic medications orders, diagnostic test orders, procedure orders and consult orders; where the start date of the order is 45 days before the date of the Encounter or 45 days after the date of theEncounter. The data comes from all [facility]. Test Date/Time Test Type Test Details Facility Name Mar 11, 2024 12:00 AM Laboratory - Chemistry [facility] PO[facility] Mar 11, 2024 12:00 AM Laboratory - Chemistry Order PTH INTACT BLOOD (RED-PLAIN) SERUM SP [facility] Mar 11, 2024 12:00 AM Laboratory - Chemistry Order VITAMIN D (25-OH) BLOOD (SST-SERUM) [facility] Mar 11, 2024 12:00 AM Laboratory - Chemistry Order MAGNESI[facility] ([facility] Mar 11, 2024 12:00 AM Laboratory - Chemistry Order CALCIUM BLOOD (SST-SERUM) [facility] Mar 11, 2024 12:00 AM Laboratory - Chemistry Order BASIC METABOLIC PANEL (non-fasting) BLOOD (SST-SERUM) [facility] Mar 11, 2024 12:00 AM Laboratory - Chemistry Order CBC BLOOD (LAV-BLOOD) [facility] Mar 11, 2024 12:00 AM Laboratory - Chemistry Order MICROALBUMIN CREATININE RATIO PANEL URINE (RANDOM) [facility] Mar 11, 2024 12:00 AM Laboratory - Chemistry Order FERRITIN BLOOD (SST-SERUM) [facility] Mar 11, 2024 12:00 AM Laboratory - Chemistry Order IRON & TIBC PANEL BLOOD (SST-SERUM) [facility] Mar 11, 2024 12:00 AM Laboratory - Chemistry Order LIPID PANEL, NON FASTING BLOOD (SST-SERUM) [facility] Social History: Smoking Status (Most current) and [...] Elena ity Apr 26, 2023 10:00 AM [place]-TO[place]AC[place] QU[place] 15 YRS OR MORE [facility] Tobacco Use History This section includes a history of the smoking, or tobacco-related health factors, that were collected on or before the date of the Encounter. The data comes from the [place] facility where the Encounter took place. Date/Time Smoking Status/Tobacco Use Comment F acility Apr 26, 2023 10:00 AM [place] QU[place] 15 YRS OR MORE [facility] Mar 30, 2022 11:00 AM [place]-TO[place]ACCO FORMER USER [facility] Mar 30, 2022 11:00 AM [place]-TOBACCO QUIT 15 YRS OR MORE [facility] Mar 17, 2021 01:30 PM [place]-TOBACCO FORMER USER [facility] [place] [facility] Mar 17, 2021 01:30 PM [place]-TOBACCO NEVER USED [facility] [place] [facility] Mar 17, 2021 01:30 PM [place]-TOBACCO QUIT 15 YRS OR MORE [facility] [place] [facility] Mar 31, 2020 10:30 AM VA-TOBACCO FORMER USER [facility] [place] [facility] Mar 31, 2020 10:30 AM [place]-TOBACCO QUIT 15 YRS OR MORE [facility] [place] [facility] Nov 23, 2018 12:07 PM VA-TOBACCO FORMER USER [facility] [place] [facility] Nov 23, 2018 12:07 PM VA-TOBACCO QUIT 15 YRS OR MORE [facility] [place] [facility] Nov 22, 2017 10:02 AM VA-TOBACCO NEVER USED [facility] [place] [facility] Mar 14, 2017 09:31 AM LIFETIME NON-TOBACCO USER [facility] [place] [facility] Mar 01, 2016 02:51 PM LIFETIME NON-TOBACCO USER [facility] [place] [facility] Feb 10, 2015 09:31 AM QUIT TOBACCO USE > 7 YEARS AGO quit in 1964 [place] [facility] [facility] Encounter Notes: All associated encounter notes This section contains the clinical notes associated to the Encounter. Date/Time Encounter Note(s) Provider Source Mar 18, 2024 09:08 AM ADMINISTRATIVE NOT E: LOCAL TITLE: CCC: SCHEDULING ADMINISTRATION STANDARD TITLE: ADMINISTRATIVE NOTE DATE OF NOTE: MAR 18, 2024@09:08:59 ENTRY DATE: MAR 18, 2024@09:09 AUTHOR: ELLIE MEJIA EXP COSIGNER: URGENCY: STATUS: COMPLETED CCC: SCHEDULING ADMINISTRATION Has ADDENDA Patient Demographics Patient Name: JACQUELYN BROWN Patient Primary Phone: [phone] Patient Primary Address: [place] [address] Patient : 1940 Patient Age: 84 Call Back Number: [phone] Caller/Recipient Relation to Patient: Other If Other Describe Relation to Patient: [facility] Caller Name: Saima Administrative Administrative Note Reason: Home Health / Care Home Administrative Note Comments: Saima Hernandez, RN with [facility], is requesting call back to confirm whether PCP will sign orders. Saima can be reached at [phone]. Thank you. IMPORTANT: This note was created by [facility] Clinical Contact Center staff. Please do not alert the staff member by adding them as a signer for future communications. Alerts are not monitored by this user. /csa/ ELLIE VELASQUEZ [facility] Signed: 03/18/2024 09:09 Receipt Acknowledged By: 03/18/2024 13:21 /cas/ Jeanette Garcia RN, BSN Primary Care 03/18/2024 13:37 /cas/ ALEXANDRA SEHLL LPN LPN 03/18/2024 ADDENDUM STATUS: COMPLETED Spoke with caller, confirmed that we would sign VNA orders. /cas/ Jeanette Garcia RN, BSN Primary Care Signed: 03/18/2024 13:21 [facility] [place] [facility]
--- OUTSIDE RECORDS SUMMARY | 2024-03-20 14:05 | XMS_ITS | Encounter Summary ---
Author Name [facility] [place] [place] [facility] ([place] Address [address] [place] [address] Care Team Providers Care Parts Interpreter Name Role Phone SOFI MANCERA Primary Care [...] [place] JONELLE Haque Mar 13, 2015 [id number] VERONICA BROWN RT PATIENT MEDICARE (WNR) MEDICARE (M) PART B Aug 12, 2007 PART B [id number] VERONICA BROWN RT PATIENT MEDICARE (WNR) MEDICARE (M) PART A Jan 12, 2004 PART A [id number] VERONICA BROWN RT PATIENT Selected Encounter This section includes the information on record at [place] for the Encounter. Date/Time Encounter Type Encounter Description Reason Provider Source Mar 19, 2024 09:20 AM MTMS BY PHARM EST 15 MIN TELEPHONE/RYLEE CHINO ICD-10-CM Z51.81 Encounter for therapeutic drug level monitoring TACO BAJWA IHE Encounter Template Text not used by [place] Assessments - Encounter Diagnoses This section includes the primary and secondary diagnoses documented for the Encounter. Date/Time Primary/Secondary Diagnosis Diagnosis Name Provider Source Mar 19, 2024 09:20 AM PRIMARY Encounter for therapeutic drug level monitoring KAYLEEN BAJWA [facility] ([id number] Mar 19, 2024 09:20 AM SECONDARY MCFP (current) use of anticoagulants KAYLEEN BAJWA [facility] ([id number]) Mar 19, 2024 09:20 AM SECONDARY Unspecified atrial fibrillation KAYLEEN BAJWA [facility] ([id number]) Plan of Treatment: Future Appointments (+ 6 months) and Future Tests (+/- 45 days) The Plan of Treatment section includes future care activities for the patient from all [place] [facility]. This section includes future appointments and future orders which are active, pending or scheduled. Future Appointments This section includes appointments that were scheduled to occur 6 months from the date of the Encounter, up to a maximum of 20 appointments. The data comes from all [facility]. Appointment Date/Time Appointment Type Appointme nt Facility Name Mar 25, 2024 10:00 AM AMBULATORY - MEDICINE [facility] [place] [facility] Apr 04, 2024 03:00 PM AMBULATORY MEDICINE [place] [facility] [place] [facility] Apr 05, 2024 11:00 AM AMBULATORY MEDICINE [place] [facility] [place] [facility] Apr 08, 2024 03:30 PM AMBULATORY MEDICINE [facility] [place] [facility] Apr 23, 2024 01:00 PM AMBULATORY MEDICINE [place] [facility] [place] [facility] Apr 30, 2024 10:00 AM AMBULATORY MEDICINE [place] [facility] [facility] May 03, 2024 01:00 PM AMBULATORY MEDICINE [facility] [place] [facility] Active, [...] theEncounter. The data comes from all [facility]. Test Date/Time Test Type Test Details Facility Name Mar 11, 2024 12:00 AM Laboratory - Chemistry Order PO4 BLOOD (SST-SERUM) [facility] Mar 11, 2024 12:00 AM Laboratory - Chemistry Order PTH INTACT BLOOD (RED-PLAIN) SERUM [facility] Mar 11, 2024 12:00 AM Laboratory - Chemistry Order VITAMIN D (25-OH) BLOOD (SST-SERUM) SP [facility] Mar 11, 2024 12:00 AM Laboratory - Chemistry Order CALCIUM BLOOD (SST-SERUM) [facility] Mar 11, 2024 12:00 AM Laboratory - Chemistry Order MICROALBUMIN CREATININE RATIO PANEL URINE (RANDOM) [facility] Mar 11, 2024 12:00 AM Laboratory - Chemistry Order MAGNESIUM BLOOD (SST-SERUM) [facility] Mar 11, 2024 12:00 AM Laboratory - Chemistry Order BASIC METABOLIC PANEL (non-fasting) BLOOD (SST-SERUM) [facility] Mar 11, 2024 12:00 AM Laboratory - Chemistry Order CBC BLOOD (LAV-BLOOD) [facility] Mar 11, 2024 12:00 AM Laboratory - Chemistry Order FERRITIN BLOOD (SST-SERUM) [facility] Mar 11, 2024 12:00 AM Laboratory - Chemistry Order IRON & TIBC PANEL BLOOD (SST-SERUM) [facility] Mar 11, 2024 12:00 AM Laboratory - Chemistry Order LIPID PANEL, NON FASTING BLOOD (SST-SERUM) [facility] Encounter Notes: All associated encounter notes This section contains the clinical notes associated to the Encounter. Date/Time Encounter Note(s) Provider Source Mar 19, 2024 09:20 AM PHARMACY MEDICATION MGT NOTE: LOCAL TITLE: PHARMACY ANTICOAGULATION NOTE STANDARD TITLE: PHARMACY MEDICATION MGT NOTE DATE OF NOTE: MAR 19, 2024@09:20 ENTRY DATE: MAR 19, 2024@09:21:09 AUTHOR: GEOVANNY BAJWA COSIGNER: URGENCY: STATUS: COMPLETED Reason for visit: Initial Education for Apixaban/Eliquis Indication: atrial fibrillation/TIA Start Date: 03/15/24 Expected Duration: indefinite Referring Provider: ABIMAEL Primary Provider: Dr. Mancera Patient Contact: Patient has given permission to leave anticoagulation message on answering machine or with person listed. Subjective: Called and spoke with re: switch from rivaroxaban to apixaban. He states he was switched while inpt, given about 10 day supply. He is taking q12 hours, denies missed doses. Pt has 2 beers per week. Denies upcoming surgeries/procedures. Labs: Patient reports outside Hgb results: Date: March 12, 2024 Results: 14.0 Location: Outside Healthcare Provider Patient reports outside HCT results: Date: March 12, 2024 Results: 42.0 Location: Outside Healthcare Provider Patient reports outside PLT results: Date: March 12, 2024 Results: 163 Location: Outside Healthcare Provider Patient reports outside SCR results: Date: March 15, 2024 Results: 1.84 Location: Outside Healthcare Provider Patient reports outside BUN results: Date: March 15, 2024 Results: 27 Location: Outside Healthcare Provider CRCL IBW: 28 mL/min CRCL ACT: 40 mL/min CRCL ADJ: 33 mL/min LFTs appropriate Vitals: Weight (BMI): 214.7 lb [97.39 kg] (01/01/2024 14:33) BMI: 32.7 Height: 68 in [172.7 cm] (01/01/2024 14:33) Active Outpatient Medications (including Supplies): ACCU-CHEK GUIDE (GLUCOSE) TEST STRIP USE 1 STRIP TO TEST ACTIVE BLOOD SUGARS TWICE DAILY FOR USE WITH ACCU-CHECK GUIDE ME METER Indication: DIABETES ALLOPURINOL 300MG TAB TAKE ONE TABLET BY MOUTH ONCE DAILY ACTIVE FOR GOUT APIXABAN 2.5MG TAB TAKE ONE TABLET BY MOUTH EVERY 12 HOURS HOLD ASCORBIC ACID 500MG TAB TAKE ONE TABLET BY MOUTH ONCE ACTIVE DAILY FOR VITAMIN/NUTRITION SUPPLEMENT Indication: FOR INADEQUATE VITAMIN C CHOLECALCIF 25MCG (D3-1,000UNIT) TAB TAKE ONE TABLET BY ACTIVE MOUTH ONCE DAILY FOR VITAMIN SUPPLEMENTATION Indication: FOR VITAMIN D DEFICIENCY FERROUS GLUCONATE 324MG TAB TAKE ONE TABLET BY MOUTH ONCE ACTIVE DAILY Indication: TO SUPPLEMENT IRON FLUTICASONE PROP 50MCG 120D NASAL INHL INSTILL 2 SPRAYS ACTIVE INTO EACH NOSTRIL ONCE DAILY NEEDED Indication: FOR NASAL IRRITATION/INFLAMMATION INSULIN,GLARGINE-YFGN 100UNIT/ML PEN 3ML INJECT 7 UNITS ACTIVE SUBCUTANEOUSLY ONCE DAILY Indication: FOR TYPE 2 DIABETES MELLITUS LANCET,SOFTCLIX USE 1 LANCET DIRECTED FOUR TIMES A DAY ACTIVE TO TEST BLOOD SUGAR Indication: DIABETES MULTIVIT/OPHTH AREDS2/LUTE/ZEAX CAP/TAB TAKE 1 CAPSULE BY ACTIVE MOUTH TWICE DAILY IN THE MORNING AND EVENING, WITH FOOD NEEDLE,PEN 31G,5MM USE 1 NEEDLE SUBCUTANEOUSLY ONCE DAILY ACTIVE FOR USE WITH PEN DEVICE OMEPRAZOLE 20MG EC CAP TAKE ONE CAPSULE BY MOUTH EVERY DAY ACTIVE FOR STOMACH ACID POTASSIUM CITRATE 5MEQ SA TAB TAKE TWO TABLETS BY MOUTH ACTIVE EVERY MORNING AND TAKE ONE TABLET EVERY EVENING Indication: FOR RENAL TUBULAR ACIDOSIS ROSUVASTATIN CA 20MG TAB TAKE ONE AND ONE-HALF TABLETS BY ACTIVE MOUTH AT BEDTIME FOR CHOLESTEROL Indication: FOR HIGH CHOLESTEROL SEMAGLUTIDE 0.25MG/0.375ML INJ PEN 3ML INJECT 0.25MG ACTIVE SUBCUTANEOUSLY ONCE A WEEK FOR 4 WEEKS, THEN INJECT 0.5MG ONCE A WEEK FOR 2 WEEKS Indication: FOR TYPE 2 DIABETES MELLITUS TAMSULOSIN HCL 0.4MG CAP TAKE TWO CAPSULES BY MOUTH AT ACTIVE BEDTIME Non-VA METOPROLOL SUCCINATE 25MG SA TAB 25MG BY MOUTH ACTIVE EVERY DAY Interacting Meds: none Apixaban: The patient was provided with the following education: --Purpose of Apixaban --Signs and symptoms of stroke and thrombosis and what to do should they occur --Medication Identification --Dosing recommendations -Apixaban may be taken with or without food -Apixaban may be crushed --Storage recommendations -Store medication in a dry area at room temperature --Recommendations for missed doses or overdosage --Importance of medication compliance and avoiding lapses in therapy to minimize the risk of stroke --Monitor for signs/symptoms of bleeding, including: -John Day or brown urine -Red or black tarry stools -Coughing up blood -Vomiting blood or vomit that looks like coffee grounds -Reoccurring nosebleeds -Unusual bleeding from the gums -Bleeding from a cut that does not stop -Headaches, dizziness or weakness --Discussed interaction with EtOH, limit to no more than 2 drinks/24 hours --Contact this clinic or provider if patient experiences and serious or intolerable adverse effects --Review risks associated with falling --Which medications to avoid due to drug interactions --Importance of notifying all providers of any medication patient is taking or changes that may occur --What to do if patient wants to discontinue therapy --Contact this clinic or provider if scheduled for a procedure --Contact number for the [facility] provided Assessment/Plan: Continue: Apixaban 2.5mg twice daily - Will enter prosthetics consult for medical alert necklace - Will ask [facility] tech to please mail apixaban in a.fib handout to pt Time Spent: 15 min Next Appt: n/a, discharge to passive management Next PCP Appt: Mar EDUCATION Provided with verbal instructions: Yes Provided with written instructions: No Barriers to learning: No Readiness to learn: Yes Specific dose directions reviewed: Yes Opportunity for questions/discussion: Yes Reports understanding of instructions: Yes Further learning needs: No PBM PharmD Pharmacotherapy Rem V12: Medication reconciliation (changes to active VA and non-VA medication lists to reconcile differences) No changes to medication lists made (medication review completed, no discrepancies identified) /cas/ GEOVANNY BAJWA PHARMD, [facility] Clinical Pharmacist Practitioner Signed: 03/19/2024 09:39 Receipt Acknowledged By: 03/19/2024 09:41 /cas/ NAMAN BRANTLEY CPHT Clinical Laborer Steel Handling GEOVANNY BAJWA [id number]
== END 2024-03-20 15:26 | disposition home or self-care (01) ==
PROVIDERS: PCP Internal Medicine; Visit Provider Internal Medicine
DX: I63.9 Cerebral infarction, unspecified (principal)

== ENCOUNTER → 2024-03-20 13:49 | Outpatient (BNVA) | payer MEDICARE, SELFPAY | PROVIDERS: PCP Internal Medicine; Visit Provider Internal Medicine | DX: Z86.73 Personal history of transient ischemic attack (TIA), and cerebral infarction without residual deficits (principal); Z79.01 Long term (current) use of anticoagulants | CPT/HCPCS: 96127; 99495 ==

== ENCOUNTER 2024-10-07 10:09 | Outpatient (AMB) | payer OTHER, SELFPAY ==
[2024-10-07 10:26] VITALS: BP 120/68; PULSE 52; BMI 34.9
--- NOTE | 2024-10-07 10:26 | MHC.OFFVIS ---
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/[facility]ib Allergies metformin Allergy (Verified 03/20/24 14:37) Diarrhea Medication List - Last Reconciled 10/07/24 by Ernst Jeffery MD allopurinol 300 mg PO DAILY apixaban (Eliquis) 2.5 mg PO BID ascorbic acid (vitamin C) 500 mg PO DAILY aspirin 81 mg PO DAILY fluticasone propionate 50 mcg/actuation 2 sprays intranasal DAILY metoprolol tartrate 50 mg PO BID@0900,1700 pl-hhj-CC-vit T-kurezm-muzcrni 200 mcg-15 mcg- 5 mg-1 mg (PreserVision AREDS 2 Plus Multivit) 1 cap PO BID omeprazole 20 mg PO DAILY@0630 potassium citrate ER 5 mEq PO BID@0900,1700 rosuvastatin 30 mg PO DAILY@1700 tamsulosin 0.8 mg PO BEDTIME HPI Comments Details: Segun is here for consultation regarding atrial fibrillation. Currently seen at [facility] but he would like to switch to our care. He states that he was diagnosed to have atrial fibrillation which is probably paroxysmal as he is currently in sinus rhythm by EKG. Apparently, he was on Xarelto but he continued to have TIA type episodes and following this, he was apparently switched over to Eliquis. After that, he has been quite well. Apart from the arrhythmias standpoint, he is otherwise doing quite well. No known coronary disease or myocardial infarction according to him. He can walk and do physical activities without any major limitations. No exertional angina. [facility] Medical History (Updated 10/07/24 @ 11:59 by Ernst Jeffery MD) CKD (chronic kidney disease) stage 3, GFR 30-59 ml/min Acute CVA (cerebrovascular accident) Acute kidney injury superimposed on CKD Obesity (BMI 30.0-34.9) TIA (transient ischemic attack) Focal neurological deficit Obesity Hyperlipidemia associated with type 2 diabetes mellitus Diabetes mellitus Insulin dependent type 2 diabetes mellitus A-fib Surgical History History of left knee replacement Family History (Updated 03/20/24 @ 14:05 by HEATHER Smart) Father No problems noted. Mother No problems noted. Other Substance use disorder Social History Household Members: Spouse Housing: House Do you presently have visiting nurse or other home services: No Alcohol intake: current Alcohol intake frequency: a few times a week Patient Tobacco Use Status: Never used Tobacco e-Cigarette/Vaping Use: Never Used Second Hand Smoke Exposure: No service: Yes Current occupational status: retired Cognitive needs: No Hearing needs: Yes (Hearing aide) Vision needs: Yes (Glasses) Review of Systems Const Denies weakness ENT Denies dizziness Card Denies chest pain, Denies chest pain with activity, Denies syncope, Denies rapid heart rate, Denies pedal edema, Denies edema, Denies leg edema, Denies lightheadedness, Reports palpitations, Denies dyspnea, Denies dyspnea on exertion and Denies orthopnea Resp Denies cough, Denies dyspnea and Denies dyspnea on exertion GI Denies hematochezia and Denies change in stool character Musc Denies abnormal gait, Denies muscle cramps, Denies muscle weakness, Denies numbness, Denies radiating pain into limb and Denies tingling Neuro Denies abnormal gait, Denies dizziness, Denies syncope, Denies numbness, Denies tingling and Denies weakness Endo Reports palpitations Physical Exam Vital Signs: Last Vital Signs Pulse 52 10/07/24 10:26 BP 120/68 10/07/24 10:26 BMI result Body Mass Index 34.9 Const General: comfortable and no acute distress Orientation/consciousness: patient oriented x3 HEENT Other: Unremarkable Head: Yes normal to inspection Neck Neck: Yes normal visual inspection Chest Chest palpation & inspection: normal inspection of the chest Resp Auscultation: clear to auscultation bilaterally Cardio Palpation: normal PMI Heart sounds: S1 normal heart sound present, S2 normal heart sound present, no gallops, no murmurs and no rubs GI Palpation (GI): Soft to palpation Back/Spine/Pelvis Other: unremarkable Skin General skin exam: no rashes or lesions noted Neuro General: patient oriented x3 Extrem General: Yes normal to inspection Psych Mental Status: mental status grossly normal Office Procedures EKG Details: EKG with underlying sinus bradycardia at 52/Min; cannot exclude old inferior/anterior infarct;, but could be related to body habitus; slight [place] prolongation; [place]. [address]-Fhzyrvgiiuzsvldnu, Complete Assessment & Plan Assessment & Plan (1) Paroxysmal atrial fibrillation: Code(s): I48.0 - Paroxysmal atrial fibrillation Category: Medical (2) History of stroke: Code(s): Z86.73 - Personal history of transient ischemic attack (TIA), and cerebral infarction without residual deficits Category: Medical (3) CKD (chronic kidney disease) stage 3, GFR 30-59 ml/min: Code(s): N18.30 - Chronic kidney disease, stage 3 unspecified Category: Medical Plan Echocardiogram from 2021-LVEF 55-60%. Normal left atrial size. Mild mitral regurgitation. Myocardial perfusion imaging study from 2023-no ischemia/infarction and normal LVEF. He is listed to be on metoprolol and Eliquis and as he has been otherwise stable may continue the same. Eliquis dose adjusted per renal function. We will get a Holter monitor for further evaluation. Discussion Notes During the visit, we discussed the management of atrial fibrillation and the importance of adherence to the prescribed medication regimen, including Eliquis and metoprolol. I emphasized the need for regular follow-up appointments with the cut in worker to monitor the condition and adjust treatment as necessary. We also talked about the potential need for a repeat Holter monitor to assess the presence of atrial fibrillation. Patient was informed and verbally consented to the use of an ambient scribe for clinic note documentation during this visit. Orders: Orders ECG 7 day holter monitor Today I48.91 - Unspecified atrial fibrillation Patient Instructions: - Continue taking Eliquis and metoprolol as prescribed. - Maintain daily walking routine with a walker for 15 minutes. - Schedule a follow-up appointment with your cut in worker. - Report any new symptoms or changes in your condition. - Consider a repeat Holter monitor to check for atrial fibrillation. Coding Level of Care Code New Pt Level 4 (22599) Complex EM visit Add On G2211 Diagnoses Paroxysmal atrial fibrillation I48.0 History of stroke Z86.73 CKD (chronic kidney disease) stage 3, GFR 30-59 ml/min N18.30 CPT Codes EKG - CPT: 08731-Vcbrgafkdzinisgxy, Complete ([id number])
--- OUTSIDE RECORDS SUMMARY | 2024-10-07 11:10 | XMS_ITS | Clinical Summary ---
Author Organization [facility] Address [address] [address] Phone Care Team Providers Care Silver Chaser Name Role Phone Al Petit MD Primary Care Provider [phone] Allergies Active Allergy Reactions Criticality Noted Date Comments Atorvastatin Other (See Comments) 04/29/2022 Hay Fever And Allergy Relief Unknown 08/16/2022 Lisinopril 06/12/2014 Other reaction(s): Dizziness Metformin Diarrhea 08/20/2010 Medications allopurinol (ZYLOPRIM) 300 MG tablet TAKE ONE TABLET BY MOUTH ONCE DAILY FOR GOUT 1 Active omeprazole (PRILOSEC) 20 MG capsule TAKE ONE CAPSULE BY MOUTH EVERY DAY FOR STOMACH ACID 1 Active tamsulosin (FLOMAX) 0.4 mg Cap TAKE TWO CAPSULES BY MOUTH AT BEDTIME 1 Active rosuvastatin (CRESTOR) 20 MG tablet TAKE ONE AND ONE-HALF TABLETS BY MOUTH AT BEDTIME FOR CHOLESTEROL 1 Active insulin aspart U-100 (NOVOLOG) 100 unit/mL injection vial 2 Active insulin glargine (LANTUS) 100 unit/mL injection vial Inject 20 Units under the skin daily. 1 Active potassium citrate (UROCIT-K) 5 mEq SR tablet TAKE TWO TABLETS BY MOUTH EVERY MORNING AND TAKE ONE TABLET EVERY EVENING 1 Active polyethylene glycol 3350 (MIRALAX ORAL) Take 17 g by mouth. 1 Active acetaminophen (TYLENOL) 325 mg tablet Take 650 mg by mouth. 1 Active cetirizine (ZYRTEC) 10 MG tablet Take 10 mg by mouth daily. Active amoxicillin (AMOXIL) 500 MG capsule 1 hour prior to dental work 2 Active atorvastatin (LIPITOR) 80 MG tablet Take 40 mg by mouth daily. 2 Active glucose 4 GM chewable tablet CHEW FOUR TABLETS BY MOUTH ONE TIME NEEDED FOR LOW BLOOD SUGAR 2 Active triamcinolone acetonide 0.1 % cream 2 Active carboxymethylcel lulose (REFRESH TEARS) 0.5 % Drop 1-2 drops 3 (three) times a day. Active therapeutic multivitamin tablet Take 1 tablet by mouth daily. Active fluticasone propionate (FLONASE) 50 mcg/actuation nasal spray 1 spray by Nasal route daily. 9.9 mL 3 Active amLODIPine (NORVASC) 2.5 MG tablet Active colchicine (COLCRYS) 0.6 mg tablet Active cholecalciferol (VITAMIN D3) 25 MCG (1,000 unit) tablet 25 mcg. 3 Active vitamins A,C,O-ixsw-pddhx r (PRESERVISION AREDS) 4,296 mcg-226 mg-90 mg Cap Take 1 capsule by mouth 2 (two) times a day with meals. Active insulin glargine-yfgn 100 unit/mL Soln 4 Active ascorbic acid, vitamin C, (VITAMIN C) 250 MG tablet Take 250 mg by mouth daily. Active rivaroxaban (XARELTO) 15 mg TabIndications:P AF (paroxysmal atrial fibrillation) Take 1 tablet (15 mg total) by mouth daily with dinner. 90 tablet 3 4 Active metoprolol tartrate (LOPRESSOR) 50 MG tabletIndication s:Benign essential hypertension Take 1 tablet by mouth twice daily 180 tablet 5 Active Active Problems Problem Noted Date Diagnosed Date PAF (paroxysmal atrial fibrillation) 09/14/2022 Assessment & Plan (09/13/2023 10:44 AM EDT): Asymptomatic and without bleeding complication from his anticoagulants Assessment & Plan (08/08/2023 12:24 PM EDT): 1. I believe this is asymptomatic he does not have a lot in the way of palpitations Assessment & Plan (01/16/2023 10:53 AM EST): Currently in normal sinus rhythm with excellent rate control Assessment & Plan (09/14/2022 11:55 AM EDT): As mentioned we will leave him on the current rate control regimen and add Xarelto 20 mg daily I will follow-up with him in 4 months time Thoracic aortic aneurysm without rupture 022 Assessment & Plan (09/13/2023 10:44 AM EDT): I looked at his last echo his aortic root size was 3.7 cm which is probably just minimally dilated for him Assessment & Plan (08/08/2023 12:24 PM EDT): Periodically we will get an echo to look at this Assessment & Plan (01/16/2023 10:52 AM EST): We will periodically follow this with echocardiograms Assessment & Plan (09/14/2022 11:56 AM EDT): Followed with echo Assessment & Plan (01/26/2022 1:27 PM EST): 3.8 cm we will follow-up with another echo in about a year Assessment & Plan (07/26/2021 2:19 PM EDT): Aorta dilated up to 4.2 cm per most recent echo. Repeat in 6 months and follow- up. Encounter to discuss test results 05/28/2021 Chest pain due to myocardial ischemia 04/26/2021 Assessment & Plan (08/16/2022 12:22 PM EDT): Stress test done in the past was normal Assessment & Plan (05/28/2021 1:35 PM EDT): Normal nuclear stress test without evidence of myocardial infarction. He does report a second episode of atypical chest pain at rest after having a few beers and socializing with friends. Patient has echocardiogram scheduled and we will follow up with the results of this. Assessment & Plan (04/26/2021 7:56 AM EST): His chest pain certainly sounds suspicious for angina I am ordering him a stress test and an echocardiogram. We will see this patient shortly thereafter in follow-up Benign essential hypertension 04/26/2021 Assessment & Plan (09/13/2023 10:44 AM EDT): Well-controlled to the guidelines Assessment & Plan (01/16/2023 10:52 AM EST): Well-controlled at this time Assessment & Plan (08/16/2022 12:21 PM EDT): Well-controlled at this time Assessment & Plan (01/26/2022 1:26 PM EST): Well-controlled to the guidelines. Assessment & Plan (07/26/2021 2:19 PM EDT): Good BP control on current regimen. No changes indicated today. Assessment & Plan (05/28/2021 1:26 PM EDT): Fairly well controlled on current regimen. I would not need anything at this time. Monitor and. Follow-up as needed. Assessment & Plan (04/26/2021 7:56 AM EST): Well-controlled at the present time Pure hypercholesterolemia 04/26/2021 Assessment & Plan (08/08/2023 12:24 PM EDT): LDL should be less than 100 mg/dL the guidelines Assessment & Plan (09/14/2022 11:55 AM EDT): LDL should be less than 70 he is on high intensity statin therapy Assessment & Plan (01/26/2022 1:27 PM EST): LDL is less than 70 and A1c is less than 7 at 6.2 Assessment & Plan (07/26/2021 2:20 PM EDT): Current lipid panel with LDL at 60. Goal <70. Continue statin therapy. Assessment & Plan (05/28/2021 1:34 PM EDT): Goal LDL less than 70 to optimize cardiovascular risk factor given patient's comorbidity of insulin-dependent diabetes. Assessment & Plan (04/26/2021 7:56 AM EST): He gets labs done twice a year at the [facility] LDL goal for his risk should be less than 70 mg/dL he is on high intensity statin therapy Crestor 20 mg a day. Diabetes 04/26/2021 Assessment & Plan (08/08/2023 12:24 PM EDT): LDL should be less than 70 mg/dL hemoglobin A1c should be less than 7 Assessment & Plan (09/14/2022 11:55 AM EDT): A1c should be less than 7 and LDL less than 70 mg/dL by the guidelines Assessment & Plan (08/16/2022 12:21 PM EDT): Hemoglobin A1c should be less than 7 and LDL less than 70 mg/dL which it is Assessment & Plan (07/26/2021 2:21 PM EDT): Current A1c is 6.1. Goal <7. Assessment & Plan (05/28/2021 1:34 PM EDT): Goal hemoglobin A1c less than 7. Assessment & Plan (04/26/2021 7:56 AM EST): He takes insulin hemoglobin A1c goal should be less than 7 Encounters Date Type Department Care Team Description 07/29/2024 Refill [facility] [address], [address] [place] [address] Erik Valdez, DO Medication Refill from Last 3 Months Social History Tobacco Use Types Packs/Day Years Used Date Smoking Tobacco: Former Smokeless Tobacco: Never Tobacco Cessation:Counseling Given: Not Answered Comments:1964 quit Alcohol Use Standard Drinks/Week Comments Not Currently 0 (1 standard drink = 0.6 oz pur e alcohol) social Education Answer Date Recorded Are you interested in more education? Not on kevin e 07/09/2022 Are you concerned about learning? Not on file 07/09/2022 No 07/09/2022 No 07/09/2022 Digital Access Answer Date Recorded No 08/09/2022 No 08/09/2022 Reliable internet access at home? Not on file 08/09/2022 Device with a working camera? Not on file Intimate Partner Violence Answer Date R ecorded Are you denied basic needs s uch as food, clothing, or medical care? No 07/12/2022 In the past 12 months have y ou been in a relationship with a person who hurts, threatens, or tries to control you? No 07/12/2022 Are you denied basic needs s uch as food, clothing, or medical care? No 07/12/2022 In the past 12 months have y ou been in a relationship with a person who hurts, threatens, or tries to control you? No 07/12/2022 Sex and Gender Information Value Date Recorded Sex Assigned at Male 07/12/2022 12:39 PM EDT Legal Sex Male 1:33 PM EST Gender Identity Male 07/12/2022 12:39 PM EDT Sexual Orientation Not on file Last Filed Vital Signs Vital Sign Reading Time Taken Comments Blood Pressure 112/72 09/13/2023 10:31 AM EDT Pulse 46 09/13/2023 10:31 AM EDT Temperature 36.5 C (97.7 F) 11/07/2022 3:31 PM EDT Respiratory Rate 18 11/07/2022 3:31 PM EDT Oxygen Saturation 98% 09/13/2023 10:31 AM EDT Inhaled Oxygen Concentration - - Weight 101.6 kg (224 lb) 09/13/2023 10:31 AM EDT Height 172.7 cm (5' 7.99 ) 09/13/2023 10:31 AM E DT Body Mass Index 34.07 09/13/2023 10:31 AM EDT Plan of Treatment Health Maintenance Due Date Last Done Comments Adult Td,Tdap Booster 1940 DEPRESSION SCREENING 1951 PNEUMOCOCCAL VACCINES (50+ years) (1 of 2 - PCV) 1958 RSV VACCINE (1 - 1-dose 75+ series) 2014 HEMOGLOBIN A1C 09/07/2020 03/09/2020 URINE MICROALBUMIN/CREATININE RATIO 07/30/2023 07/29/2022 COVID-19 VACCINE (2 - season) 2023 03/15/2023 BLOOD PRESSURE 03/15/2024 09/13/2023 CREATININE LEVEL 07/23/2024 07/24/2023, 04/2022, 06/15/2022 DIABETIC EYE EXAM 02/13/2025 02/14/2024, , 11/27/2023, Additional history exists ZOSTER VACCINES Completed 12/20/2017, 04/2017, 01/14/2011 HEPATITIS A VACCINES Aged Out No long er eligible based on patient's age to complete this topic HIB VACCINES Aged Out No longer eligi ble based on patient's age to complete this topic MENINGOCOCCAL VACCINES (ACWY) Aged Out No longer eligible based on patient's age to complete this topic MENINGOCOCCAL VACCINES (B) Aged Out N o longer eligible based on patient's age to complete this topic Medical Devices Not on file Procedures Procedure Name Priority Date/Time Associated Diagnosis Comments BASIC METABOLIC PANEL STAT 07/12/2022 1:09 PM EDT from Last 3 Months or Most Recently Relevant to Health Maintenance Results * (ABNORMAL) Basic metabolic panel (07/12/2022 1:09 PM EDT) SODIUM 139 133 - 146 mmol/L [facility] CHLORIDE 104 96 - 108 mmol/L [facility] POTASSIUM 4.1 3.3 - 5.1 mmol/L [facility] Comment:Specimen slightly he molyzed, result may be falsely elevated. CO2 23 21 - 35 mmol/L [facility] BUN 21(H) 6 - 19 mg/dL [facility] CREATININE 1.50 0.5 - 1.5 mg/dL [facility] GLUCOSE 174(H) 70 - 99 mg/dL [facility] CALCIUM 9.5 8.4 - 10.3 mg/dL [facility] EGFR 46(L) >59 mL/min/1.7 3m2 [facility] Comment:Estimated glomerular filtration rate calculated using the CKD-EPI refit equation. ANION GAP 16 10 - 20 mmol/L [facility] Blood 07/12/2022 1:09 PM EDT 07/12/2022 1:15 PM EDT us Julito Melendez MD LAB BLOOD ORDERABLES Final Resul t [facility] [address] [place] [address] from Last 3 Months or Most Recently Relevant to Health [place] [address] MEDICARE PART A & B [employer]UE [employer] MEDEX SUPPLEMENT [facility] MEDICARE PART A & B [employer] MEDEX SUPPLEMENT [facility] MEDICARE PART A & B [employer] CROSS MEDEX SUPPLEMENT MEDICARE PART A & B [employer] MEDEX SUPPLEMENT MEDICARE PART A & B [employer] MEDEX SUPPLEMENT [facility] MEDICARE PART A & B [employer] CROSS MEDEX SUPPLEMENT MEDICARE PART A & B [employer] CROSS MEDEX SUPPLEMENT Member Subscriber Plan / Payer (Ef fective 2004-Present) Name:Segun Fields Relation to Subscriber:Self Name:Segun Fields Payer ID:[id number] (NAIC) Type:Indemnity Address: [address] MEDICARE PART A & B [employer] CROSS MEDEX SUPPLEMENT [facility] MEDICARE PART A & B [employer] MEDEX SUPPLEMENT [facility] Care Teams Silver Chaser Relationship Specialty Start Date End Date Al Petit MD [address] [place] [address] [place] [address] PCP - General Internal Medicine 05/14/21 Additional Source Comments The information contained in this document represents components of the legal health record. It is not the complete legal health record.[facility]
--- OUTSIDE RECORDS SUMMARY | 2024-10-07 11:11 | XMS_ITS | Patient Health Record ---
Author Organization [facility] [place] Address [address] [place] [address] Care Team Providers Care Equine Pharmacology Technician Name Role Phone Al Petit MD Primary Care Provider Cheryle Mims Unavailable [phone] Allergies Allergen (clinical drug ingredient) Drug/Non Drug [...] 0.4 MG 1 capsule Orally Once a day; Duration: 30 day(s) Active amLODIPine Besylate 2.5 MG Orally Not-Taking Colchicine 0.6 MG 1 tablet Orally Once a day; Duration: as needed Not-Taking Augmentin 500-125 MG as directed Orally every 12 hrs; Duration: 10 days 07/11/2016 Not-Taking Chlorpheniramine Maleate Not-Taking Keflex 500 MG 1 capsule Orally every 12 hrs; Duration: 10 day(s) 03/21/2016 Not-Taking Pneumovax 23 Not-Ilya [...] Status Risk Notes Problem Plantar fascial fibromatosis (68479232) Plantar fascial fibromatosis (M72.2) Active confirmed Problem Primary gout (16613198) Idiopathic gout, 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) Active confirmed Problem Type II diabetes mellitus without complication (521160185) Type 2 diabetes mellitus without complications (E11.9) Active confirmed Problem Cellulitis of great toe of right foot (L03.031) Active confirmed Plan Of Treatment Pending Test Test Name Order Date *Uric Acid, Serum 07/07/2016 *CBC With Differential/Platelet 07/08/19 17 *Sedimentation Rate-Westergren 07/07/ 7 06898-FOPJXRA NAIL, -05/09/2016 78315-XYBGSVF NAIL, -05/11/2017 05486-TLVUMBI NAIL, -08/10/2017 45722-LVNGIXM NAIL, -11/09/2017 38654-PRUHGPW NAIL, -02/08/2018 36879-LLPVDFU NAIL, -05/10/2018 67130-OBMDMOW NAIL, -08/02/2018 51449-HRUXHTX NAIL, 1-5 11/08/2018 69617-JKARQXZ NAIL, 1-5 02/11/2019 03709-Gwtgyrif Plate 05/11/2017 50596-Iemxmdvt Plate 06/29/2016 04883-Pmidtmkz Plate 11/06/2014 80348-Whliezfe Plate 10/16/2015 43952-Jyngyhgj Plate 10/23/2015 54523-Knxmtgtm Plate 11/11/2015 09259-BJF 02/29/2016 89753- Debride <25 sq cm 04/04/2016 25276- Debride <25 sq cm 05/09/2016 55508- Debride <25 sq cm 11/21/2014 15024- Debride <25 sq cm 05/25/2017 54043-BDSOGRH SKIN/TISSUE 03/21/2016 29246-GDAA SKIN LESIONS, 2 TO 4 08/03/19 63036-HDVS SKIN LESIONS, 2 TO 4 11/09/19 72642-TXQJ SKIN LESION 05/11/2017 14356-IUEB NAIL(S) 05/11/2017 57602-HGUX NAIL(S) 08/02/2018 75655-GXUZ NAIL(S) 02/11/2019 16185-EBDO NAIL(S) 11/08/2018 25151-SGLO NAIL(S) 05/10/2018 16636-VAHS NAIL(S) 02/08/2018 04235-UKIA NAIL(S) 11/09/2017 80612-COUE NAIL(S) 08/10/2017 08367,B5876-NIG TENDON SHEATH/LIGAMENT 0 10/29/2015 Insurance Providers Payer Name Payer Address Payer Phone Subscriber Number Group Number Insured Name Patient Relationship to Insured Coverage Start Date Coverage End Date Medicare National [employer] [address] [facility] [place] [address] [id number] Segun Fields Self - patient is the insured 4 [employer] Blue Shield [address] [place] [address] [id number] Segun Fields Self - patient is the insured Medical (General) History Medical History History ICD Code Cataracts Diabetic Diverticulosis Macular degeneration Kidney disease High blood pressure Reflux Gout Cholesterol Basal cell carcinoma Hypertensive disorder Back pain Arthritis Surgical History Surgery Date(Month/Year) laser surgery kidney surgery basal cell carcinoma 07/13/18 Hospitalization History Reason Date(Month/Year) admitted [facility] for anxiety keep eye on hea rt 06/11/2015
== END 2024-10-07 10:53 | disposition home or self-care (01) ==
LOC: HO.HCS 10:09
PROVIDERS: PCP Internal Medicine; Visit Provider Internal Medicine
DX: I48.0 Paroxysmal atrial fibrillation (principal); Z86.73 Personal history of transient ischemic attack (TIA), and cerebral infarction without residual deficits; N18.30 Chronic kidney disease, stage 3 unspecified
CPT/HCPCS: 93010; 99204; G2211

== ENCOUNTER → 2024-10-07 10:09 | Outpatient (BNVA) | payer OTHER, SELFPAY | PROVIDERS: PCP Internal Medicine; Visit Provider Internal Medicine | DX: I48.0 Paroxysmal atrial fibrillation (principal); N18.30 Chronic kidney disease, stage 3 unspecified; Z86.73 Personal history of transient ischemic attack (TIA), and cerebral infarction without residual deficits; I44.5 Left posterior fascicular block; R94.31 Abnormal electrocardiogram [ECG] [EKG] | CPT/HCPCS: 93005; 99202 ==

== ENCOUNTER → 2024-11-01 10:11 | Outpatient (REF) | payer OTHER, SELFPAY ==
--- OUTSIDE RECORDS SUMMARY | 2024-11-01 05:15 | XMS_ITS | Continuity of Care Document ---
Author Name [facility] Organization [facility] Care Team Providers Care Turn Out Name Role Phone [facility] Unavailable Unavailable Problems Combined list of problems from Department of Defense and Veterans Affairs facilities. It does not include entries that were removed or entered in error. Problem Status Onset Date Problem Type Date of Resolution Comments Source Stroke Active 03/13/19 25 Condition Mar 25, 2024 Entered By: SOFI MANCERA Comment: getting P.T. [facility] Chronic dermatitis Active 03/13/19 24 Condition Oct 18, 2023 Entered By: SOFI MANCERA Comment: poison cherry [facility] Atrial fibrillation Active 03/13/19 23 Condition Oct 12, 2022 Entered By: SOFI MANCERA Comment: treated by cardiology [facility] Back pain Active 03/13/19 21 Condition Nov 10, 2020 Entered By: SOFI MANCERA Comment: lumbar [facility] Benign Prostatic Hypertrophy Without Outflow Obstruction (SCT 556077938) Active 03/13/19 19 Condition Nov 23, 2018 Entered By: SOFI MANCERA Comment: treated with tamsulosin [facility] Nephrolithiasis * (ICD-9-CM 592.0) Active 03/13/18 89 Condition May 24, 2005 Entered By: RE MCALLISTER Comment: High uric acid in stone at the time placed on allopurinol [facility] Microscopic Hematuria Active 03/13/18 68 Condition May 24, 2005 Entered By: RE MCALLISTER Comment: Since 1967 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, Wet (Armd) Active Condition [facility] Arthritis Active Condition [facility] Blurred vision (ICD-9-CM 368.8) Active Condition [facility] Chronic kidney disease stage 3 due to type 2 diabetes mellitus Active Condition [facility] Colonoscopy, 2006, tics, polyps -- benign Active Condition [facility] Diabetes mellitus type 2 Active Condition [facility] Essential hypertension Active Condition [facility] Essential hypertension Active Condition [facility] Gastroesophageal Reflux Disorder Active Condition [facility] Hyperlipidemia (SNOMED CT 14996817) Active Condition [facility] Hyperuricemia Active Condition [facility] Obesity (SNOMED CT 730578519) Active Condition [facility] Pain in joint involving shoulder region (ICD-9-CM 719.41) Active Condition July 25, 2006 Entered By: RE MCALLISTER Comment: Small tear in L rotator cuff Med Rx [facility] Diagnosis: ICD-10-CM M54.50 Low back pain, unspecified Active Diagnosis [facility] Diagnosis: ICD-10-CM E11.9 Type 2 diabetes mellitus without complications Active Diagnosis [facility] Diagnosis: ICD-10-CM M54.9 Dorsalgia, unspecified Active Diagnosis [facility] Diagnosis: ICD-10-CM I63.9 Cerebral infarction, unspecified Active Diagnosis [facility] Diagnosis: ICD-10-CM Z46.0 Encounter for fit/adjst of spectacles and contact lenses Active Diagnosis [facility] Diagnosis: ICD-10-CM I69.398 Other sequelae of cerebral infarction Active Diagnosis [facility] Diagnosis: ICD-10-CM 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, right eye, with inactive scar Active Diagnosis [facility] Diagnosis: ICD-10-CM Z51.81 Encounter for therapeutic drug level monitoring Active Diagnosis [facility] ([id number]) Diagnosis: ICD-10-CM Z71.89 Other specified counseling Active Diagnosis [facility] Diagnosis: ICD-10-CM Y93.42 Activity, yoga Active Diagnosis [facility] Diagnosis: ICD-10-CM M54.59 Other low back pain [facility] Diagnosis: ICD-10-CM L30.9 Dermatitis, unspecified Active [facility] Diagnosis: ICD-10-CM L60.0 Ingrowing nail [facility] [place] [facility] Diagnosis: ICD-10-CM E11.22 Type 2 diabetes mellitus w diabetic chronic kidney disease [facility] Diagnosis: ICD-10-CM Z46.1 Encounter for fitting and adjustment of hearing aid Active [facility] Medications Combined list of outpatient medications from Department of Defense and Veterans Affairs facilities.Medications provided include 1) outpatient medications from the last 15 months, and 2) patient-reported medications. Medication Details Route Status Patient Instructions Prescription Expires Prescription Number Last Dispense Date Ordering Provider Order Date Order Qty Source ALLOPURINOL 300MG TAB TAKE ONE TABLET BY MOUTH ONCE DAILY FOR GOUT ORAL ACTIVE 10/01/2025 [id number] 5 STEPHANIE MANCERA D 2024 90 [facility] ALLOPURINOL 300MG TAB TAKE ONE TABLET BY MOUTH ONCE DAILY FOR GOUT ORAL DISCONT INUED 09/18/2024 [id number] 5 STEPHANIE MANCERA 2023 90 [facility] APIXABAN 2.5MG TAB TAKE ONE TABLET BY MOUTH EVERY 12 HOURS ORAL ACTIVE 08/29/2025 [id number] 5 STEPHANIE MANCERA 2024 180 [facility] APIXABAN 2.5MG TAB TAKE ONE TABLET BY MOUTH EVERY 12 HOURS ### ORAL 04/14/2024 [id number] 5 FABI COLLADO 2024 60 [facility] APIXABAN 5MG TAB TAKE ONE-HALF TABLET BY MOUTH EVERY 12 HOURS ORAL DISCONT INUED (EDIT) 08/09/2025 [id number] 5 STEPHANIE MANCERA D 2024 90 [facility] APIXABAN 5MG TAB TAKE ONE-HALF TABLET BY MOUTH EVERY 12 HOURS FOR PREVENTI ON OF BLOOD CLOTS ORAL DISCONT INUED 05/10/2025 [id number] 5 STEPHANIE MANCERA MYLENE D 2024 90 [facility] ASCORBIC ACID 500MG TAB TAKE ONE TABLET BY MOUTH ONCE DAILY FOR VITAMIN/ NUTRITIO N SUPPLEME NT ORAL 05/09/2024 [id number] 4 ERIKA STEVENS 2023 100 [facility] CARBOXYMETH YLCELLULOSE NA 0.5% SOLN,OPH INSTILL 1 DROP INTO EACH EYE FOUR TIMES DAILY NEEDED FOR DRY EYE OPHTHA LMIC ACTIVE 05/21/2025 [id number] Blayne MASONEW E 2024 15 [facility] CHOLECALCIF MARGARITA 25MCG (1,000UNIT) TAB TAKE ONE TABLET BY MOUTH ONCE DAILY FOR VITAMIN SUPPLEME NTATION ORAL 06/21/2024 [id number] 5 ERIKA STEVENS 2023 90 [facility] FERROUS GLUCONATE 324MG TAB TAKE ONE TABLET BY MOUTH ONCE DAILY TO SUPPLEME NT IRON ORAL 04/05/2024 [id number] 4 ERIKA STEVENS 2023 100 [facility] FLUTICASONE PROPIONATE 50MCG/SPRAY SOLN,NASAL, 16GM INSTILL 2 SPRAYS INTO EACH NOSTRIL ONCE DAILY NEEDED FOR NASAL IRRITATI ON/INFLA MMATION NASAL 10/29/2024 [id number] 5 STEPHANIE MANCERA MYLENE D 2023 3 [facility] FLUTICASONE PROPIONATE 50MCG/SPRAY SOLN,NASAL, 16GM INSTILL 2 SPRAYS INTO EACH NOSTRIL ONCE DAILY NEEDED FOR NASAL IRRITATI ON/INFLA MMATION NASAL 09/27/2023 [id number] 4 STEPHANIE MANCERA MYLENE D 2022 1 [facility] INSULIN,GLA RGINE,HUMAN 100 UNIT/ML INJ,SOLOSTA R,3ML INJECT 7 UNITS SUBCUTAN EOUSLY ONCE DAILY SUBCUT ANEOUS DISCONT INUED BY PROVIDE R 12/18/2024 [id number] 5 MAXIMILIANO FRENCH 2024 5 [facility] INSULIN,GLA RGINE-YFGN 100UNIT/ML INJ PEN,3ML INJECT 7 UNITS SUBCUTAN EOUSLY ONCE DAILY SUBCUT ANEOUS DISCONT INUED (EDIT) 12/18/2024 [id number] 5 MAXIMILIANO FRENCH 2023 5 [facility] INSULIN,GLA RGINE-YFGN 100UNIT/ML INJ PEN,3ML INJECT 16 UNITS SUBCUTAN EOUSLY ONCE DAILY FOR TYPE 2 DIABETES MELLITUS SUBCUT ANEOUS DISCONT INUED BY PROVIDE R 09/15/2024 [id number] 4 MAXIMILIANO FRENCH 2023 5 [facility] METOPROLOL TARTRATE 50MG TAB TAKE ONE TABLET BY MOUTH TWICE DAILY FOR BLOOD PRESSURE /HEART ORAL ACTIVE 08/02/2025 [id number] 5 STEPHANIE MANCERA D 2024 180 [facility] MULTIVIT/OP HTH AREDS2/LUTE IN/ZEAXANTH IN CAP/TAB TAKE 1 CAPSULE BY MOUTH TWICE DAILY IN THE MORNING AND EVENING, WITH FOOD ORAL ACTIVE 04/12/2025 [id number] 5 STEPHANIE MANCERA D 2024 120 [facility] MULTIVIT/OP HTH AREDS2/LUTE IN/ZEAXANTH IN CAP/TAB TAKE 1 CAPSULE BY MOUTH TWICE DAILY IN THE MORNING AND EVENING, WITH FOOD ORAL DISCONT INUED 04/17/2024 [id number] 4 Blayne MASON E 2023 120 [facility] OMEPRAZOLE 20MG CAP,EC TAKE ONE CAPSULE BY MOUTH EVERY DAY FOR STOMACH ACID ORAL ACTIVE 02/06/2025 [id number] 5 STEPHANIE MANCERAD D 2023 90 [facility] OMEPRAZOLE 20MG CAP,EC TAKE ONE CAPSULE BY MOUTH EVERY DAY FOR STOMACH ACID ORAL DISCONT INUED 02/21/2024 [id number] 4 STEPHANIE MANCERAD D 2022 90 [facility] POTASSIUM CITRATE 5MEQ TAB,SA TAKE TWO TABLETS BY MOUTH EVERY MORNING AND TAKE ONE TABLET EVERY EVENING FOR RENAL TUBULAR ACIDOSIS ORAL ACTIVE 03/01/2025 [id number] 5 STEPHANIE [facility]ANCERAD D 2023 300 [facility] POTASSIUM CITRATE 5MEQ TAB,SA TAKE TWO TABLETS BY MOUTH EVERY MORNING AND TAKE ONE TABLET EVERY EVENING FOR RENAL TUBULAR ACIDOSIS ORAL DISCONT INUED 12/16/2023 [id number] STEPHANIE MANCERAD D 2022 300 [facility] PREDNISONE 10MG TAB TAKE FOUR TABLETS BY MOUTH ONCE DAILY FOR 4 DAYS, THEN TAKE THREE TABLETS ONCE DAILY FOR 4 DAYS, THEN TAKE TWO TABLETS ONCE DAILY FOR 4 DAYS, THEN TAKE ONE TABLET ONCE DAILY FOR 4 DAYS POISON CHERRY ORAL 11/17/2023 [id number] 4 STEPHANIE MANCERA D 2023 40 [facility] RIVAROXABAN 15MG TAB TAKE ONE TABLET BY MOUTH ONCE DAILY WITH DINNER ORAL DISCONT INUED 10/04/2024 [id number] 5 Kasi MUHAMMAD 2023 90 [facility] ROSUVASTATI N CA 20MG TAB TAKE ONE AND ONE-HALF TABLETS BY MOUTH AT BEDTIME FOR CHOLESTE ROL ORAL ACTIVE 03/09/2025 [id number] 5 STEPHANIE MANCERAD D 2023 135 [facility] ROSUVASTATI N CA 20MG TAB TAKE ONE AND ONE-HALF TABLETS BY MOUTH AT BEDTIME FOR CHOLESTE ROL ORAL DISCONT INUED 05/05/2024 [id number] 4 STEPHANIE MANCERA 2023 135 [facility] SEMAGLUTIDE 0.25MG/0.37 5ML INJ,SOLN,PE N,3ML INJECT 0.25MG SUBCUTAN EOUSLY ONCE A WEEK FOR 4 WEEKS, THEN INJECT 0.5MG ONCE A WEEK FOR 2 WEEKS FOR TYPE 2 DIABETES MELLITUS SUBCUT ANEOUS DISCONT INUED BY PROVIDE R 04/11/2024 [id number] 4 MAXIMILIANO FRENCH 2023 1 [facility] SEMAGLUTIDE 0.25MG/0.37 5ML INJ,SOLN,PE N,3ML INJECT 0.5MG SUBCUTAN EOUSLY ONCE A WEEK FOR TYPE 2 DIABETES MELLITUS SUBCUT ANEOUS DISCONT INUED BY PROVIDE R 10/25/2024 [id number] 4 MAXIMILIANO FRENCH 2023 1 [facility] SEMAGLUTIDE 0.25MG/0.37 5ML INJ,SOLN,PE N,3ML INJECT 0.25MG SUBCUTAN EOUSLY ONCE A WEEK FOR 4 WEEKS, THEN INJECT 0.5MG ONCE A WEEK FOR 2 WEEKS FOR TYPE 2 DIABETES MELLITUS SUBCUT ANEOUS 10/24/2023 [id number] MAXIMILIANO FRENCH 2023 1 [facility] SEMAGLUTIDE 1MG/0.75ML INJ,SOLN,PE N,3ML INJECT 1MG SUBCUTAN EOUSLY ONCE A WEEK FOR TYPE 2 DIABETES MELLITUS SUBCUT ANEOUS DISCONT INUED BY PROVIDE R 12/18/2024 [id number] 4 MAXIMILIANO FRENCH 2023 1 [facility] SITAGLIPTIN (EQV-ZITUVI O) 50MG TAB TAKE ONE TABLET BY MOUTH ONCE DAILY ORAL ACTIVE 10/11/2025 [id number] 5 MAXIMILIANO FRENCH 2024 90 [facility] SITAGLIPTIN (EQV-ZITUVI O) 50MG TAB TAKE ONE TABLET BY MOUTH ONCE DAILY ORAL DISCONT INUED 06/27/2025 [id number] MAXIMILIANO FRENCH 2024 90 [facility] TAMSULOSIN HCL 0.4MG CAP TAKE TWO CAPSULES BY MOUTH AT BEDTIME ORAL ACTIVE 08/16/2025 [id number] 5 STEPHANIE MANCERA 2024 180 [facility] TAMSULOSIN HCL 0.4MG CAP TAKE TWO CAPSULES BY MOUTH AT BEDTIME ORAL DISCONT INUED 08/09/2024 [id number] 5 STEPHANIE MANCERA 2023 180 [facility] Allergies, Adverse Reactions, Alerts Combined list of allergies from Department of Defense and Veterans Affairs facilities. It does not include entries that were removed or entered in error. Substance Category Reaction Severity Reaction type Status Date Reported Comments Source ATORVASTATIN Propensity to adverse reactions to drug (finding) Weakness present MILD active 3 [facility] LISINOPRIL Propensity to adverse reactions to drug (finding) Dizziness active 5 [facility] METFORMIN Propensity to adverse reactions to drug (finding) Diarrhea active 1 [facility] SEMAGLUTIDE Propensity to adverse reactions to drug (finding) Diarrhea, Nausea, Indigestion active 4 [facility] Immunizations Combined list of available immunizations from the Department of Defense and Veterans Affairs facilities. Immunization Series Date Given Administered By Site Reaction Lot Number CVX Code Drug Comb Tender Status Comments Source COVID-19 (MODERNA), MRNA, LNP-S, PF, 50 MCG/0.5 ML (AGES 12+ YEARS) 8 2024 NIKKO SHELL LEFT DELTO ID [id number] 312 complet ed [facility] COVID-19 (MODERNA), MRNA, LNP-S, PF, 50 MCG/0.5 ML (AGES 12+ YEARS) 7 2023 NIKKO SHELL RIGHT DELTO ID [id number] 312 complet ed [facility] INFLUENZA, HIGH-DOSE, TRIVALENT, PF 2023 NIKKO SHELL LEFT DELTO ID [id number] 135 complet ed Completed Series, [facility] AT [facility] COVID-19 (MODERNA), MRNA, LNP-S, PF, 50 MCG/0.5 ML (AGES 12+ YEARS) 6 2023 NIKKO SHELL RIGHT DELTO ID [id number] 312 complet ed [facility] RSV, BIVALENT, PROTEIN SUBUNIT RSVPREF, DILUENT RECONSTITUTED , 0.5 ML, PF 1 2022 KAYLEEN BUTLER E LEFT DELTO ID [id number] 305 complet ed ADMIN[facility]E [facility] AT [facility] INFLUENZA, HIGH-DOSE, QUADRIVALENT 2022 KAYLEEN BUTLER E LEFT DELTO ID [id number] 197 complet ed Booster for Series, ADMINISTE [facility] AT [facility] TD (ADULT), 2 LF TETANUS TOXOID, PRESERVATIVE FREE, ADSORBED 2022 VARSHA MCNAMARA M RIGHT DELTO ID [id number] 09 complet ed ADMINISTE [facility] AT [facility] COVID-19 (MODERNA), MRNA, LNP-S, BIVALENT BOOSTER, PF, 50 MCG/0.5 ML OR 25MCG/0.25 ML DOSE 2021 229 complet ed [facility]ISTORICA L [facility] ON [facility] INFLU[facility] VACCINE, QUADRIVALENT, ADJUVANTED 2021 205 complet ed [facility] COVID-19 (MODERNA), MRNA, LNP-S, PF, 100 MCG/0.5ML DOSE OR 50 MCG/0.25ML DOSE 4 2021 207 complet ed MOD; [id number]; 2 [facility] COVID-19 (MODERNA), MRNA, LNP-S, PF, 100 MCG OR 50 MCG DOSE 3 2020 207 complet ed [facility] INFLUENZA VACCINE, QUADRIVALENT, ADJUVANTED 2020 205 complet ed [facility] COVID-19 (MODERNA), MRNA, LNP-S, PF, 100 MCG/0.5 ML DOSE 2 2020 207 complet ed MOD; [id number]; 1 [facility] COVID-19 (MODERNA), MRNA, LNP-S, PF, 100 MCG/0.5 ML DOSE 1 2020 207 complet ed MOD; [id number]; 1 [facility] [...] ed [place] FLU,3 YRS (HISTORICAL) 2004 BENIGNO AGUILAR 88 complet ed [place] FLU,3 YRS (HISTORICAL) 2003 JULIO MACEDO 88 complet ed [place] Results Combined list of recent chemistry, hematology and other laboratory results from Department of Defense and Veterans Affairs, ranging from 15 months to all on record, depending upon the facility. Order Name Results Value Reference Range Date Interpretation Specimen Comments Source VITAMIN D 25-OH PANEL (Q) 25-HYDROXY VITAMIN D3 [MASS/VOLU ME] IN SERUM OR PLASMA 36 ng/mL 30 - 100 08/14 Specimen Type: SERUM Comment: Vitamin D, 25-Hydroxy [...] additional information , please refer to http://educ ation.[email or web address] .com/faq/FA Q199 (This link is being provided for information al/ educational purposes only.) This test was developed and its analytical performance characteris tics have been determined by [email or web address] [place]. It has not been cleared or approved by the U.S. Food and Drug Administrat ion. This assay has been validated pursuant to the CLIA regulations and is used for clinical purposes. This test was developed and its analytical performance characteris tics have been determined by [email or web address] [place]. It has not been cleared or approved by the U.S. Food and Drug Administrat ion. This assay has been validated pursuant to the CLIA regulations and is used for clinical purposes. Test Performed by [email or web address] [facility], [employer] [facility], [address] [place] [address] Juan Martinez M.D., Ph.D., Director of Laboratorie s , CLIA [id number] TEST PERFORMED AT: , Ordering Provider: SIDNEY MANCERA Report Released Date/Time: Aug 14, 2024 12:05 PM Reporting Lab: [facility] [address] [address] Performing Lab: [facility] [address] [address] [facility] VITAMIN D 25-OH PANEL (Q) 25-HYDROXY VITAMIN D3 [MASS/VOLU ME] IN SERUM OR PLASMA 36 ng/mL 08/14 Specimen Type: SERUM Comment: Vitamin D, 25-Hydroxy [...] additional information , please refer to http://educ ation.[email or web address] .[employer]/faq/FA Q199 (This link is being provided for information al/ educational purposes only.) This test was developed and its analytical performance characteris tics have been determined by [email or web address] [place]. It has not been cleared or approved by the U.S. Food and Drug Administrat ion. This assay has been validated pursuant to the CLIA regulations and is used for clinical purposes. This test was developed and its analytical performance characteris tics have been determined by [email or web address] [place]. It has not been cleared or approved by the U.S. Food and Drug Administrat ion. This assay has been validated pursuant to the CLIA regulations and is used for clinical purposes. Test Performed by [email or web address], [employer] [facility], [address] [place] [address] Juan Martinez M.D., Ph.D., Director of Laboratorie s , CLIA [id number] TEST PERFORMED AT: , Ordering Provider: SIDNEY MANCERA Report Released Date/Time: Aug 14, 2024 12:05 PM Reporting Lab: [facility] [address] [address] Performing Lab: [facility] [address] [address] [facility] VITAMIN D 25-OH PANEL (Q) CALCIFEROL (VIT D2) [MASS/VOLU ME] IN SERUM OR PLASMA <4ng/mL 08/14 Specimen Type: SERUM Comment: Vitamin D, 25-Hydroxy [...] additional information , please refer to http://educ ation.[email or web address] .[employer]/faq/FA Q199 (This link is being provided for information al/ educational purposes only.) This test was developed and its analytical performance characteris tics have been determined by [email or web address] [place]. It has not been cleared or approved by the U.S. Food and Drug Administrat ion. This assay has been validated pursuant to the CLIA regulations and is used for clinical purposes. This test was developed and its analytical performance characteris tics have been determined by [email or web address] [place]. It has not been cleared or approved by the U.S. Food and Drug Administrat ion. This assay has been validated pursuant to the CLIA regulations and is used for clinical purposes. Test Performed by [email or web address], [employer] [facility], [address] [place] [address] Juan Martinez M.D., Ph.D., Director of Laboratorie s , CLIA [id number] TEST PERFORMED AT: , Ordering Provider: SIDNEY MANCERA Report Released Date/Time: Aug 14, 2024 12:05 PM Reporting Lab: [facility] [address] [address] Performing Lab: [facility] [id number] [place] [address] [facility] HEMOGLOB IN A1C PANEL HEMOGLOBIN A1C/HEMOGL OBIN.TOTAL IN BLOOD BY [facility] PROTOCOL 6.5 4.0 - 5.6 08/14 H Specimen Type: BLOOD Comment: Values obtained from A1C measurement s can vary. For atypical A1C assays, a reported value of 7.0 could actually be between 6.72 and 7.28 if measured by a reference method. A reported value of 9.0 could actually be between 8.73 and 9.27. Ref: http://www. ngsp.org/[place] Pdata.asp Ordering Provider: SIDNEY MANCERA Report Released Date/Time: Aug 14, 2024 12:05 PM Reporting Lab: [facility] [place] [address] [address] Performing Lab: [facility] [place] [address] [address] [facility] URIC ACID URATE [MASS/VOLU ME] IN SERUM OR PLASMA 3.0 mg/dL 3.7 - 7.7 08/14 L Specimen Type: SERUM No comment entered. Ordering Provider: SIDNEY MANCERA Report Released Date/Time: Aug 14, 2024 12:05 PM Reporting Lab: [facility] [place] [address] [address] Performing Lab: [facility] [place] [address] [address] [facility] MICROALB UMIN CREATINI NE RATIO PANEL MICROALBUM IN/CREATIN INE [MASS RATIO] IN URINE 82.7 mg/g 0 - 29.9 08/14 H Specimen Type: URINE No comment entered. Ordering Provider: SDINEY MANCERA Report Released Date/Time: Aug 14, 2024 12:05 PM Reporting Lab: [facility] [place] [address] [address] Performing Lab: [facility] [address] [address] [facility] MICROALB UMIN CREATINI NE RATIO PANEL MICROALBUM IN [MASS/VOLU ME] IN URINE BY DETECTION LIMIT <= 1.0 MG/L 6.2 mg/dL 08/14 Specimen Type: URINE No comment entered. Ordering Provider: SIDNEY MANCERA Report Released Date/Time: Aug 14, 2024 12:05 PM Reporting Lab: [facility] [place] [facility] [address] [address] Performing Lab: [facility] [address] [address] [facility] MICROALB UMIN CREATINI NE RATIO PANEL CREATININE [MASS/VOLU ME] IN URINE 75.00 mg/dL 63 - 166 08/14 Specimen Type: URINE No comment entered. Ordering Provider: SIDNEY MANCERA Report Released Date/Time: Aug 14, 2024 12:05 PM Reporting Lab: [facility] [place] [facility] [address] [address] Performing Lab: [facility] [place] [facility] [address] [address] [facility] URINALYS IS CLEAN CATCH COLOR OF URINE Light-Ye llow 08/14 Specimen Type: URINE Comment: If Glucose = >500 and Ketones are positive, please alert the Physician. Ordering Provider: SIDNEY MANCERA Report Released Date/Time: Aug 14, 2024 12:05 PM Reporting Lab: [facility] [place] [facility] [address] [address] Performing Lab: [facility] [place] [facility] [address] [address] [facility] [place] [facility] URINALYS IS CLEAN CATCH APPEARANCE OF URINE Clear 08/14 Specimen Type: URINE Comment: If Glucose = >500 and Ketones are positive, please alert the Physician. Ordering Provider: SIDNEY MANCERA Report Released Date/Time: Aug 14, 2024 12:05 PM Reporting Lab: [facility] [place] [facility] [address] [address] Performing Lab: [facility] [place] [facility] [address] [address] [facility] URINALYS IS CLEAN CATCH GLUCOSE [MASS/VOLU ME] IN URINE Normalmg /dL 08/14 Specimen Type: URINE Comment: If Glucose = >500 and Ketones are positive, please alert the Physician. Ordering Provider: SIDNEY MANCERA Report Released Date/Time: Aug 14, 2024 12:05 PM Reporting Lab: [facility] [address] [id number] Performing Lab: [facility] [address] [id number] [facility] URINALYS IS CLEAN CATCH KETONES [MASS/VOLU ME] IN URINE BY TEST STRIP NEGATIVE mg/dL 08/14 Specimen Type: URINE Comment: If Glucose = >500 and Ketones are positive, please alert the Physician. Ordering Provider: SIDNEY MANCERA Report Released Date/Time: Aug 14, 2024 12:05 PM Reporting Lab: [facility] [place] [address] [id number] Performing Lab: [facility] [place] [facility] [address] [address] [facility] [place] [facility] URINALYS IS CLEAN CATCH ERYTHROCYT ES [PRESENCE] IN URINE SEDIMENT BY LIGHT MICROSCOPY NEGATIVE mg/dL 08/14 Specimen Type: URINE Comment: If Glucose = >500 and Ketones are positive, please alert the Physician. Ordering Provider: SIDNEY MANCERA Report Released Date/Time: Aug 14, 2024 12:05 PM Reporting Lab: [facility] [place] [facility] [address] [address] Performing Lab: [facility] [place] [facility] [address] [address] [facility] [place] [facility] URINALYS IS CLEAN CATCH PROTEIN [MASS/VOLU ME] IN URINE BY TEST STRIP 10 mg/dL 08/14 Specimen Type: URINE Comment: If Glucose = >500 and Ketones are positive, please alert the Physician. Ordering Provider: SIDNEY MANCERA Report Released Date/Time: Aug 14, 2024 12:05 PM Reporting Lab: [facility] [place] [facility] [address] [address] Performing Lab: [facility] [place] [facility] [address] [address] [facility] [place] [facility] URINALYS IS CLEAN CATCH NITRITE [PRESENCE] IN URINE NEGATIVE mg/dL 08/14 Specimen Type: URINE Comment: If Glucose = >500 and Ketones are positive, please alert the Physician. Ordering Provider: SIDNEY MANCERA Report Released Date/Time: Aug 14, 2024 12:05 PM Reporting Lab: [facility] [place] [address] [address] Performing Lab: [facility] [place] [facility] [address] [address] [facility] [place] [facility] URINALYS IS CLEAN CATCH BILIRUBIN. TOTAL [PRESENCE] IN URINE NEGATIVE mg/dL 08/14 Specimen Type: URINE Comment: If Glucose = >500 and Ketones are positive, please alert the Physician. Ordering Provider: SIDNEY MANCERA Report Released Date/Time: Aug 14, 2024 12:05 PM Reporting Lab: [facility] [place] [address] [address] Performing Lab: [facility] [place] [address] [address] [facility] [place] [facility] URINALYS IS CLEAN CATCH SPECIFIC GRAVITY OF URINE BY REFRACTOME TRY 1.016 1.016 - 1.022 08/14 Specimen Type: URINE Comment: If Glucose = >500 and Ketones are positive, please alert the Physician. Ordering Provider: SIDNEY MANCERA Report Released Date/Time: Aug 14, 2024 12:05 PM Reporting Lab: [facility] [place] [address] [address] Performing Lab: [facility] [place] [address] [address] [facility] [place] [facility] URINALYS IS CLEAN CATCH PH OF URINE BY TEST STRIP 6.0 5.0 - 9.0 08/14 Specimen Type: URINE Comment: If Glucose = >500 and Ketones are positive, please alert the Physician. Ordering Provider: SIDNEY MANCERA Report Released Date/Time: Aug 14, 2024 12:05 PM Reporting Lab: [facility] [place] [facility] [address] [address] Performing Lab: [facility] [place] [facility] [address] [address] [facility] [place] [facility] URINALYS IS CLEAN CATCH UROBILINOG EN [MASS/VOLU ME] IN URINE BY TEST STRIP Normalmg /dL <2.0 - 2.0 08/14 Specimen Type: URINE Comment: If Glucose = >500 and Ketones are positive, please alert the Physician. Ordering Provider: SIDNEY MANCERA Report Released Date/Time: Aug 14, 2024 12:05 PM Reporting Lab: [facility] [place] [facility] [address] [address] Performing Lab: [facility] [place] [facility] [address] [address] [facility] [place] [facility] URINALYS IS CLEAN CATCH LEUKOCYTE ESTERASE [PRESENCE] IN URINE BY TEST STRIP NEGATIVE 08/14 Specimen Type: URINE Comment: If Glucose = >500 and Ketones are positive, please alert the Physician. Ordering Provider: SIDNEY MANCERA Report Released Date/Time: Aug 14, 2024 12:05 PM Reporting Lab: [facility] [place] [facility] [address] [address] Performing Lab: [facility] [place] [facility] [address] [address] [facility] [place] [facility] TSH THYROTROPI N [UNITS/VOL UME] IN SERUM OR PLASMA BY DETECTION LIMIT <= 0.005 MIU/L 1.14 u[IU]/mL 0.35 - 4.94 08/14 Specimen Type: SERUM No comment entered. Ordering Provider: SIDNEY MANCERA Report Released Date/Time: Aug 14, 2024 12:05 PM Reporting Lab: [facility] [place] [facility] [address] [address] Performing Lab: [facility] [place] [facility] [address] [address] [facility] [place] [facility] LIVER FUNCTION PROTEIN [MASS/VOLU ME] IN SERUM OR PLASMA 6.5 g/dL 6.4 - 8.3 08/14 Specimen Type: SERUM No comment entered. Ordering Provider: SIDNEY MANCERA Report Released Date/Time: Aug 14, 2024 12:05 PM Reporting Lab: [facility]ITALRCOMMUNITY HOSPITALTRN [facility]USE[facility] [address] [address] Performing Lab: [facility]ITALRL TRN [facility]ENTERUSEMED[facility] [address] [address] [facility] LIVER FUNCTION ALBUMIN [MASS/VOLU ME] IN SERUM OR PLASMA BY BROMOCRESO L PURPLE (BCP) DYE BINDING METHOD 3.9 g/dL 3.2 - 4.6 08/14 Specimen Type: SERUM No comment entered. Ordering Provider: SIDNEY MANCERA Report Released Date/Time: Aug 14, 2024 12:05 PM Reporting Lab: [facility]PITALRTAYLOR HARDIN SECURE MEDICAL FACILITYN [facility] CENTERUSE[address] [address] Performing Lab: [facility]ITALRL TRN [facility]ENTERUSE[address] [address] [facility] LIVER FUNCTION ALKALINE PHOSPHATAS E [ENZYMATIC ACTIVITY/V OLUME] IN SERUM OR PLASMA 80 U/L 40 - 150 08/14 Specimen Type: SERUM No comment entered. Ordering Provider: SIDNEY MANCERA Report Released Date/Time: Aug 14, 2024 12:05 PM Reporting Lab: [facility]ITALRL TRN [facility] CENTERUSE[address] [address] Performing Lab: [facility]RL TRN [facility] CENTERUSE[address] [address] [facility] LIVER FUNCTION ASPARTATE AMINOTRANS FERASE [ENZYMATIC ACTIVITY/V OLUME] IN SERUM OR PLASMA BY WITH P-5'-P 19 U/L 5 - 34 08/14 Specimen Type: SERUM No comment entered. Ordering Provider: SIDNEY MANCERA Report Released Date/Time: Aug 14, 2024 12:05 PM Reporting Lab: [facility]ITALRCOMMUNITY HOSPITALTRN [facility] CENTERUSE[address] [address] Performing Lab: [facility]ITALRL TRN [facility] CENTERUSETS [facility] [address] [address] [facility]ITALRL TRN [facility]ENTERUSE [facility] LIVER FUNCTION ALANINE AMINOTRANS FERASE [ENZYMATIC ACTIVITY/V OLUME] IN SERUM OR PLASMA BY WITH P-5'-P 16 U/L 0 - 55 08/14 Specimen Type: SERUM No comment entered. Ordering Provider: SIDNEY MANCERA Report Released Date/Time: Aug 14, 2024 12:05 PM Reporting Lab: [facility]ITALRL TRN [place] [facility] [address] [address] Performing Lab: [facility]ITALRL TRN [facility]ENTERUSEMED[facility] [address] [address] [facility]ITALN [facility]ENTERUSE [facility] LIVER FUNCTION BILIRUBIN. TOTAL [MASS/VOLU ME] IN SERUM OR PLASMA 0.5 mg/dL 0.2 - 1.2 08/14 Specimen Type: SERUM No comment entered. Ordering Provider: SIDNEY MANCERA Report Released Date/Time: Aug 14, 2024 12:05 PM Reporting Lab: [facility]ITALRL TRN [facility]ENTERUSEMED[facility] [address] [address] Performing Lab: [facility]ITALRL TRN [facility]ENTERUSEMED[facility] [address] [address] [facility] LIPID PANEL FASTING CHOLESTERO L [MASS/VOLU ME] IN SERUM OR PLASMA 149 mg/dL 08/14 Specimen Type: SERUM No comment entered. Ordering Provider: SIDNEY MANCERA Report Released Date/Time: Aug 14, 2024 12:05 PM Reporting Lab: [facility]PITALRL TRN [facility] MED[facility] CENTERUSETS [facility] [address] [address] Performing Lab: [facility]ITALRL TRN [facility]ENTERUSEMEDIS[facility] [address] [address] [facility]N [facility] LIPID PANEL FASTING TRIGLYCERI DE [MASS/VOLU ME] IN SERUM OR PLASMA 159 mg/dL 0 - 150 08/14 H Specimen Type: SERUM No comment entered. Ordering Provider: SIDNEY MANCERA Report Released Date/Time: Aug 14, 2024 12:05 PM Reporting Lab: [facility] [place] [facility] [address] [address] Performing Lab: [facility] [place] [facility] [address] [address] [facility] [place] [facility] LIPID PANEL FASTING CHOLESTERO L IN LDL [MASS/VOLU ME] IN SERUM OR PLASMA BY CALCULATIO N 57 mg/dL 0 - 129 08/14 Specimen Type: SERUM No comment entered. Ordering Provider: SIDNEY MANCERA Report Released Date/Time: Aug 14, 2024 12:05 PM Reporting Lab: [facility] [place] [facility] [address] [address] Performing Lab: [facility] [place] [facility] [address] [address] [facility] [place] [facility] LIPID PANEL FASTING CHOLESTERO L.TOTAL/CH OLESTEROL IN HDL [MASS RATIO] IN SERUM OR PLASMA 2.5 08/14 Specimen Type: SERUM No comment entered. Ordering Provider: SIDNEY MANCERA Report Released Date/Time: Aug 14, 2024 12:05 PM Reporting Lab: [facility] [place] [facility] [address] [address] Performing Lab: [facility] [place] [facility] [address] [address] [facility] [place] [facility] LIPID PANEL FASTING CHOLESTERO L IN HDL [MASS/VOLU ME] IN SERUM OR PLASMA 60 mg/dL 40 08/14 Specimen Type: SERUM No comment entered. Ordering Provider: SIDNEY MANCERA Report Released Date/Time: Aug 14, 2024 12:05 PM Reporting Lab: [facility] [place] [facility] [address] [address] Performing Lab: [facility] [place] [facility] [address] [address] [facility] [place] [facility] BASIC METABOLI C PANEL (fasting ) UREA NITROGEN [MASS/VOLU ME] IN SERUM OR PLASMA 25 mg/dL 8 - 26 08/14 Specimen Type: SERUM No comment entered. Ordering Provider: SIDNEY MANCERA Report Released Date/Time: Aug 14, 2024 12:05 PM Reporting Lab: [facility] [place] [facility] [address] [address] Performing Lab: [facility] [place] [facility] [address] [address] [facility]ITALRL WSTRN [facility] CENTERUSE [facility] BASIC METABOLI C PANEL (fasting ) GLUCOSE [MASS/VOLU ME] IN SERUM OR PLASMA 115 mg/dL 65 - 100 08/14 H Specimen Type: SERUM No comment entered. Ordering Provider: SIDNEY MANCERA Report Released Date/Time: Aug 14, 2024 12:05 PM Reporting Lab: [facility] [place] [place] [address] [address] Performing Lab: [facility] [facility] CENTERUSE[address] [address] [facility]ITALRL WSTRN [facility]ENTERUSE [facility] BASIC METABOLI C PANEL (fasting ) SODIUM [MOLES/VOL UME] IN SERUM OR PLASMA 140 mmol/L 136 - 145 08/14 Specimen Type: SERUM No comment entered. Ordering Provider: SIDNEY MANCERA Report Released Date/Time: Aug 14, 2024 12:05 PM Reporting Lab: [facility] [place] [address] [address] Performing Lab: [facility] [place] [facility] CENTERUSETS [address] [address] [facility]ITALRL WSTRN [facility] CENTERUSE [facility] BASIC METABOLI C PANEL (fasting ) POTASSIUM [MOLES/VOL UME] IN SERUM OR PLASMA 4.8 mmol/L 3.5 - 5.1 08/14 Specimen Type: SERUM No comment entered. Ordering Provider: SIDNEY MANCERA Report Released Date/Time: Aug 14, 2024 12:05 PM Reporting Lab: [facility] [place] [place] [address] [address] Performing Lab: [facility] [facility] CENTERUSETS [address] [address] [facility] CENTERUSE [facility] BASIC METABOLI C PANEL (fasting ) CHLORIDE [MOLES/VOL UME] IN SERUM OR PLASMA 109 mmol/L 98 - 107 08/14 H Specimen Type: SERUM No comment entered. Ordering Provider: SIDNEY MANCERA Report Released Date/Time: Aug 14, 2024 12:05 PM Reporting Lab: [facility]N [address] [address] Performing Lab: [facility]N [address] [address] [facility]N [facility] BASIC METABOLI C PANEL (fasting ) CARBON DIOXIDE, TOTAL [MOLES/VOL UME] IN SERUM OR PLASMA 25 meq/L 23 - 31 08/14 Specimen Type: SERUM No comment entered. Ordering Provider: SIDNEY MANCERA Report Released Date/Time: Aug 14, 2024 12:05 PM Reporting Lab: [address] [address] Performing Lab: [address] [address] [facility] BASIC METABOLI C PANEL (fasting ) CALCIUM [MASS/VOLU ME] IN SERUM OR PLASMA 9.3 mg/dL 8.8 - 10 08/14 Specimen Type: SERUM No comment entered. Ordering Provider: SIDNEY MANCERA Report Released Date/Time: Aug 14, 2024 12:05 PM Reporting Lab: [facility]N [address] [address] Performing Lab: [facility]PITALRTAYLOR HARDIN [facility]URE MEDICAL FACILITYN [address] [address] [facility]N [facility] BASIC METABOLI C PANEL (fasting ) CREATININE [MASS/VOLU ME] IN SERUM OR PLASMA 1.86 mg/dL 0.72 - 1.25 08/14 H Specimen Type: SERUM No comment entered. Ordering Provider: SIDNEY MANCERA Report Released Date/Time: Aug 14, 2024 12:05 PM Reporting Lab: [facility]N [address] [address] Performing Lab: [facility] [place] [facility] [address] [address] [facility] [place] [facility] BASIC METABOLI C PANEL (fasting ) GLOMERULAR FILTRATION RATE/1.73 SQ M.PREDICTE D [VOLUME RATE/AREA] IN SERUM, PLASMA OR BLOOD BY CREATININE -BASED FORMULA (CKD-EPI 2020) 35 mL/min 60 08/14 L Specimen Type: SERUM No comment entered. Ordering Provider: SIDNEY MANCERA Report Released Date/Time: Aug 14, 2024 12:05 PM Reporting Lab: [facility]RL [facility] [place] [facility] [address] [address] Performing Lab: [facility]ITALRL [facility]N [place] [address] [address] [facility]RL TRN [place] [facility] CBC AND DIFF (AUTO) LEUKOCYTES [#/VOLUME] IN BLOOD BY AUTOMATED COUNT 7.15 10*3/uL 4.50 - 11.00 08/14 Specimen Type: BLOOD No comment entered. Ordering Provider: SIDNEY MANCERA Report Released Date/Time: Aug 14, 2024 12:05 PM Reporting Lab: [facility] [place] [address] [address] Performing Lab: [facility]RL [facility] [place] [facility] [address] [address] [facility] [place] [facility] CBC AND DIFF (AUTO) ERYTHROCYT ES [#/VOLUME] IN BLOOD BY AUTOMATED COUNT 4.46 10*6/uL 4.23 - 5.66 08/14 Specimen Type: BLOOD No comment entered. Ordering Provider: SIDNEY MANCERA Report Released Date/Time: Aug 14, 2024 12:05 PM Reporting Lab: [facility]RL [facility] [place] [address] [address] Performing Lab: [facility]RL [facility] [address] [address] [facility] [place] [facility] CBC AND DIFF (AUTO) HEMOGLOBIN [MASS/VOLU ME] IN BLOOD 13.5 g/dL 12.8 - 17 08/14 Specimen Type: BLOOD No comment entered. Ordering Provider: SIDNEY MANCERA Report Released Date/Time: Aug 14, 2024 12:05 PM Reporting Lab: [facility] [place] [facility] [address] [address] Performing Lab: [facility] [place] [facility] [address] [address] [facility] [place] [facility] CBC AND DIFF (AUTO) HEMATOCRIT [VOLUME FRACTION] OF BLOOD BY AUTOMATED COUNT 41.3 39.2 - 50.4 08/14 Specimen Type: BLOOD No comment entered. Ordering Provider: SIDNEY MANCERA Report Released Date/Time: Aug 14, 2024 12:05 PM Reporting Lab: [facility] [place] [facility] [address] [address] Performing Lab: [facility] [place] [facility] [address] [address] [facility] [place] [facility] CBC AND DIFF (AUTO) MCV [ENTITIC VOLUME] BY AUTOMATED COUNT 92.6 fL 82 - 99 08/14 Specimen Type: BLOOD No comment entered. Ordering Provider: SIDNEY MANCERA Report Released Date/Time: Aug 14, 2024 12:05 PM Reporting Lab: [facility] [place] [facility] [address] [address] Performing Lab: [facility] [place] [facility] [address] [address] [facility] [place] [facility] CBC AND DIFF (AUTO) MCHC [MASS/VOLU ME] BY AUTOMATED COUNT 32.7 g/dL 30.8 - 35.1 08/14 Specimen Type: BLOOD No comment entered. Ordering Provider: SIDNEY MANCERA Report Released Date/Time: Aug 14, 2024 12:05 PM Reporting Lab: [facility] [place] [facility] [address] [address] Performing Lab: [facility] [place] [facility] [address] [address] [facility] [place] [facility] CBC AND DIFF (AUTO) PLATELETS [#/VOLUME] IN BLOOD BY AUTOMATED COUNT 178 10*3/uL 140 - 360 08/14 Specimen Type: BLOOD No comment entered. Ordering Provider: SIDNEY MANCERA Report Released Date/Time: Aug 14, 2024 12:05 PM Reporting Lab: [facility] [place] [facility] [address] [address] Performing Lab: [facility] [place] [facility] [address] [address] [facility] [place] [facility] CBC AND DIFF (AUTO) PLATELET MEAN VOLUME [ENTITIC VOLUME] IN BLOOD BY AUTOMATED COUNT 10.4 fL 9.2 - 12.4 08/14 Specimen Type: BLOOD No comment entered. Ordering Provider: SIDNEY MANCERA Report Released Date/Time: Aug 14, 2024 12:05 PM Reporting Lab: [facility] [place] [address] [address] Performing Lab: [facility]ITALRL TRN [facility] CENTERUSETS [address] [address] [facility]ITALRL TRN [facility] CENTERUSE [facility] CBC AND DIFF (AUTO) ERYTHROCYT E DISTRIBUTI ON WIDTH [RATIO] BY AUTOMATED COUNT 14.5 12.0 - 16.0 08/14 Specimen Type: BLOOD No comment entered. Ordering Provider: SIDNEY MANCERA Report Released Date/Time: Aug 14, 2024 12:05 PM Reporting Lab: [facility]ITALRCOMMUNITY HOSPITALTRN [place] [address] [address] Performing Lab: [facility] [place] [address] [address] [facility]ITALRCOMMUNITY HOSPITALTRN [place] [facility] CBC AND DIFF (AUTO) MONOCYTES [#/VOLUME] IN BLOOD BY AUTOMATED COUNT 0.63 10*3/uL 0.30 - 1.10 08/14 Specimen Type: BLOOD No comment entered. Ordering Provider: SIDNEY MANCERA Report Released Date/Time: Aug 14, 2024 12:05 PM Reporting Lab: [facility]ITALRCOMMUNITY HOSPITALTRN [place] [facility] [address] [address] Performing Lab: [facility] [place] [address] [place] [address] [facility] [place] [facility] CBC AND DIFF (AUTO) MCH [ENTITIC MASS] BY AUTOMATED COUNT 30.3 pg 26.2 - 32.6 08/14 Specimen Type: BLOOD No comment entered. Ordering Provider: SIDNEY MANCERA Report Released Date/Time: Aug 14, 2024 12:05 PM Reporting Lab: [facility] [place] [facility] [address] [address] Performing Lab: [facility] [place] [facility] [address] [address] [facility] [place] [facility] CBC AND DIFF (AUTO) NEUTROPHIL S/100 LEUKOCYTES IN BLOOD BY AUTOMATED COUNT 62.3 43.7 - 75.8 08/14 Specimen Type: BLOOD No comment entered. Ordering Provider: SIDNEY MANCERA Report Released Date/Time: Aug 14, 2024 12:05 PM Reporting Lab: [facility] [place] [facility] [address] [address] Performing Lab: [facility] [place] [facility] [address] [address] [facility] [place] [facility] CBC AND DIFF (AUTO) LYMPHOCYTE S/100 LEUKOCYTES IN BLOOD BY AUTOMATED COUNT 21.7 14.0 - 42.3 08/14 Specimen Type: BLOOD No comment entered. Ordering Provider: SIDNEY MANCERA Report Released Date/Time: Aug 14, 2024 12:05 PM Reporting Lab: [facility] [place] [facility] [address] [address] Performing Lab: [facility] [place] [facility] [address] [address] [facility] [place] [facility] CBC AND DIFF (AUTO) MONOCYTES/ 100 LEUKOCYTES IN BLOOD BY AUTOMATED COUNT 8.8 5.1 - 13.7 08/14 Specimen Type: BLOOD No comment entered. Ordering Provider: SIDNEY MANCERA Report Released Date/Time: Aug 14, 2024 12:05 PM Reporting Lab: [facility] [place] [facility] [address] [address] Performing Lab: [facility] [place] [facility] [address] [address] [facility] [place] [facility] CBC AND DIFF (AUTO) EOSINOPHIL S/100 LEUKOCYTES IN BLOOD BY AUTOMATED COUNT 6.4 0.4 - 6.8 08/14 Specimen Type: BLOOD No comment entered. Ordering Provider: SIDNEY MANCERA Report Released Date/Time: Aug 14, 2024 12:05 PM Reporting Lab: [facility] [place] [facility] [address] [address] Performing Lab: [facility] [place] [address] [address] [facility] [place] [facility] CBC AND DIFF (AUTO) BASOPHILS/ 100 LEUKOCYTES IN BLOOD BY AUTOMATED COUNT 0.4 0.1 - 2.0 08/14 Specimen Type: BLOOD No comment entered. Ordering Provider: SIDNEY MANCERA Report Released Date/Time: Aug 14, 2024 12:05 PM Reporting Lab: [facility] [place] [address] [address] Performing Lab: [facility] [place] [address] [address] [facility] [place] [facility] CBC AND DIFF (AUTO) NEUTROPHIL S [#/VOLUME] IN BLOOD BY AUTOMATED COUNT 4.45 10*3/uL 2.20 - 7.60 08/14 Specimen Type: BLOOD No comment entered. Ordering Provider: SIDNEY MANCERA Report Released Date/Time: Aug 14, 2024 12:05 PM Reporting Lab: [facility] [place] [address] [address] Performing Lab: [facility] [place] [address] [address] [facility] [place] [facility] CBC AND DIFF (AUTO) LYMPHOCYTE S [#/VOLUME] IN BLOOD BY AUTOMATED COUNT 1.55 10*3/uL 1.00 - 3.20 08/14 Specimen Type: BLOOD No comment entered. Ordering Provider: SIDNEY MANCERA Report Released Date/Time: Aug 14, 2024 12:05 PM Reporting Lab: [facility] [place] [facility] [address] [address] Performing Lab: [facility] [place] [facility] [address] [address] [facility] CBC AND DIFF (AUTO) EOSINOPHIL S [#/VOLUME] IN BLOOD BY AUTOMATED COUNT 0.46 10*3/uL 0.03 - 0.44 08/14 H Specimen Type: BLOOD No comment entered. Ordering Provider: SIDNEY MANCERA Report Released Date/Time: Aug 14, 2024 12:05 PM Reporting Lab: [facility] [place] [facility] [address] [address] Performing Lab: [facility] [place] [facility] [address] [address] [facility] CBC AND DIFF (AUTO) BASOPHILS [#/VOLUME] IN BLOOD BY AUTOMATED COUNT 0.03 10*3/uL 0.01 - 0.13 08/14 Specimen Type: BLOOD No comment entered. Ordering Provider: SIDNEY MANCERA Report Released Date/Time: Aug 14, 2024 12:05 PM Reporting Lab: [facility] [place] [facility] [address] [address] Performing Lab: [facility] [place] [facility] [address] [address] [facility] CBC AND DIFF (AUTO) IMMATURE GRANULOCYT ES/100 LEUKOCYTES IN BLOOD BY AUTOMATED COUNT 0.4 0.0 - 0.7 08/14 Specimen Type: BLOOD No comment entered. Ordering Provider: SIDNEY MANCERA Report Released Date/Time: Aug 14, 2024 12:05 PM Reporting Lab: [facility] [place] [facility] [address] [address] Performing Lab: [facility] [place] [facility] [address] [address] [facility] CBC AND DIFF (AUTO) IMMATURE GRANULOCYT ES [#/VOLUME] IN BLOOD BY AUTOMATED COUNT 0.03 10*3/uL 0.00 - 0.06 08/14 Specimen Type: BLOOD No comment entered. Ordering Provider: SIDNEY MANCERA Report Released Date/Time: Aug 14, 2024 12:05 PM Reporting Lab: [facility] [place] [facility] [address] [facility] [address] Performing Lab: [facility] [facility] [address] [facility] [address] [facility] CBC AND DIFF (AUTO) NUCLEATED ERYTHROCYT ES/100 LEUKOCYTES [RATIO] IN BLOOD BY AUTOMATED COUNT 0.0 0.0 - 0.0 08/14 Specimen Type: BLOOD No comment entered. Ordering Provider: SIDNEY MANCERA Report Released Date/Time: Aug 14, 2024 12:05 PM Reporting Lab: [facility] [address] [address] Performing Lab: [facility] [address] [facility] [address] [facility] CBC AND DIFF (AUTO) NUCLEATED ERYTHROCYT ES [#/VOLUME] IN BLOOD BY AUTOMATED COUNT 0.00 10*3/uL 0.00 - 0.00 08/14 Specimen Type: BLOOD No comment entered. Ordering Provider: SIDNEY MANCERA Report Released Date/Time: Aug 14, 2024 12:05 PM Reporting Lab: [facility] [address] [address] Performing Lab: [facility] [address] [address] [facility] Vital Signs Combined list of inpatient and outpatient Vital Signs from Department of Defense and Veterans Affairs, ranging from 12 months to all on record, depending upon the facility. Vital Sign Value Date Comments Source SYSTOLIC BLOOD PRESSURE 126 08/29/19 25 13:20:54 [facility] [facility] DIASTOLIC BLOOD PRESSURE 66 08/28/ 025 13:20:54 [facility] PULSE OXIMETRY 98 % 08/28/2024 13:20:54 [facility] WEIGHT 219 08/28/2024 13:20:54 [facility] BMI 33 kg/m2 08/28/2024 13:20:54 [facility] PAIN 0 08/28/2024 13:20:54 [facility] TEMPERATURE 98.7 08/28/2024 13:20:54 [facility] PULSE 60 08/28/2024 13:20:54 [facility] RESPIRATION 16 08/28/2024 13:20:54 [facility] SYSTOLIC BLOOD PRESSURE 142 06/19/19 25 14:46:14 [facility] DIASTOLIC BLOOD PRESSURE 62 025 14:46:14 [facility] PULSE OXIMETRY 98 06/18/2024 14:46:14 [facility] WEIGHT 215 06/18/2024 14:46:14 [facility] BMI 33 kg/m2 06/18/2024 14:46:14 [facility] PAIN 6 06/18/2024 14:46:14 [facility] HEIGHT 68 06/18/2024 14:46:14 [facility] TEMPERATURE 97.8 06/18/2024 14:46:14 [facility] PULSE 64 06/18/2024 14:46:14 [facility] RESPIRATION 16 06/18/2024 14:46:14 [facility] SYSTOLIC BLOOD PRESSURE 124 04/30/19 25 09:49:07 [facility] DIASTOLIC BLOOD PRESSURE 64 025 09:49:07 [facility] PULSE OXIMETRY 98 04/30/2024 09:49:07 [facility] WEIGHT 210.3 04/30/2024 09:49:07 [facility] BMI 32 kg/m2 04/30/2024 09:49:07 [facility] PAIN 0 04/30/2024 09:49:07 [facility] HEIGHT 68 04/30/2024 09:49:07 [facility] TEMPERATURE 96 04/30/2024 09:49:07 [facility] PULSE 54 04/30/2024 09:49:07 [facility] RESPIRATION 16 04/30/2024 09:49:07 [facility] SYSTOLIC BLOOD PRESSURE 122 03/25/19 25 09:47:37 [facility] DIASTOLIC BLOOD PRESSURE 64 025 09:47:37 [facility] PULSE OXIMETRY 97 03/25/2024 09:47:37 [facility] WEIGHT 213 03/25/2024 09:47:37 [facility] BMI 32 kg/m2 03/25/2024 09:47:37 [facility] PAIN 0 03/25/2024 09:47:37 [facility] HEIGHT 68 03/25/2024 09:47:37 [facility] TEMPERATURE 97.4 03/25/2024 09:47:37 [facility] PULSE 67 03/25/2024 09:47:37 [facility] RESPIRATION 16 03/25/2024 09:47:37 [facility] SYSTOLIC BLOOD PRESSURE 150 01/01/20 24 14:33:33 [facility] DIASTOLIC BLOOD PRESSURE 70 024 14:33:33 [facility] PULSE OXIMETRY 96 01/01/2024 14:33:33 [facility] WEIGHT 214.7 01/01/2024 14:33:33 [facility] BMI 33 kg/m2 01/01/2024 14:33:33 [facility] PAIN 1 01/01/2024 14:33:33 [facility] HEIGHT 68 01/01/2024 14:33:33 [facility] TEMPERATURE 97.9 01/01/2024 14:33:33 [facility] PULSE 75 01/01/2024 14:33:33 [facility] RESPIRATION 16 01/01/2024 14:33:33 [facility] Encounters Combined list of: 1) Encounters from Department of Veterans Affairs facilities going backup to the last 18 months, not all VA inpatient encounters are included; 2) Encounters from the Department of Defense facilities going backup to 280 months. 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 Leroy STEVENS 05/09 [facility] Out[facility] Encounter [id number] 05/11 [facility] RPR&REFITG SPECT XCP APHAKIA [id number] Diagnos is: ICD-10- CM Z46.0 Encount er for fit/adj st of spectac les and contact lenses FELTON ARGUETA AUTUMN 05/14 [facility] INFRARED THERAPY [id number] Diagnos is: ICD-10- CM M54.9 Dorsalg ia, unspeci fied GAUNYA,[facility] ISTOPHER M 05/28 [facility] Out[facility] Encounter [id number] 06/13 [facility] Out[facility] Encounter [id number] 06/20 [facility] TRIM NAIL(S) [id number] Diagnos is: ICD-10- CM E11.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 SIM GALLOWAY 07/04 [facility] INFRARED THERAPY [id number] Diagnos is: ICD-10- CM M54.9 Dorsalg ia, unspeci fied GAUNYA,[facility] ISTOPHER M 07/05 [facility] Out[facility] Encounter [id number] 07/18 [facility] Out[facility] Encounter [id number] 07/31 [facility] ACUPUNCT W/O STIMUL ADDL 15M [id number] Diagnos is: ICD-10- CM M54.50 Low back pain, unspeci fikey MENDOZA,CHR ISTOPHER M 08/01 [facility] Out[facility] Encounter [id number] 1.08/07 [facility] Out[facility]counter [id number] [facility] Out[facility] Encounter [id number] [facility] Encounter [id number] 1.08/21 [facility] HEARING AID REPAIR/MOD IFYING [id number] Diagnos is: ICD-10- CM Z46.1 Encount er for fitting and adjustm ent of hearing aid YENIFER BRADEN 08/22 [facility] OFFICE O/P EST SF 10 MIN [id number] Diagnos is: ICD-10- CM E11.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 TERESITA MANCERA RD 08/31 [facility] Out[facility] Encounter [id number] 08/31 [facility] MTMS BY PHARM ADDL 15 MIN [id number] Diagnos is: ICD-10- CM E11.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 MAK FRENCH 09/10 [facility] Out[facility] Encounter [id number] 09/11 [facility] QNHP OL DIG ASSMT&MGMT 5-10 [id number] Diagnos is: ICD-10- CM E11.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 Kasi BYRNE 09/11 [facility] MTMS BY PHARM ADDL 15 MIN [id number] Diagnos is: ICD-10- CM E11.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 MAK FRENCH 09/14 [facility] Out[facility] Encounter [id number] 09/17 [facility] MTMS BY PHARM ADDL 15 MIN [id number] Diagnos is: ICD-10- CM E11.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 MAK FRENCH 10/01 [facility] ACUPUNCT W/O STIMUL ADDL 15M [id number] Diagnos is: ICD-10- CM M54.9 Dorsalg ia, unspeci titi MENDOZA,CHR ISTOPHER M 10/03 [facility] Out[facility] Encounter [id number] 10/03 [facility] Out[facility] Encounter [id number] 10/03 [facility] OFFICE O/P EST MOD 30 MIN [id number] Diagnos is: ICD-10- CM 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 Leroy STEVENS 10/10 [facility] Out[facility] Encounter [id number] 10/10 [facility] OFFICE O/P EST LOW 20 MIN [id number] Diagnos is: ICD-10- CM L60.0 Ingrowi MARTHA Crouch D 10/10 [facility] OFF/OP EST MAY X REQ PHY/QHP [id number] Diagnos is: ICD-10- CM Z71.89 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 Diagnos is: ICD-10- CM E11.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 MAK FRENCH 10/29 [facility] ACUPUNCT W/O STIMUL ADDL 15M [id number] Diagnos is: ICD-10- CM M54.9 Dorsalg ia, unspeci titi MENDOZA,[facility] ISTOPHER M 11/05 [facility] Out[facility] Encounter [id number] 11/15 [facility] MTMS BY PHARM EST 15 MIN [id number] 1. Diagnos is: ICD-10- CM E11.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 MAK FRENCH CYNTHIA 11/19 [facility] MTMS BY PHARM EST 15 MIN [id number] Diagnos is: ICD-10- CM E11.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 MAK FRENCH CYNTHIA 12/17 [facility] TRIM NAIL(S) [id number] 1. Diagnos is: ICD-10- CM E11.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 SIM GALLOWAY 12/26 [facility] INFRARED THERAPY [id number] Diagnos is: ICD-10- CM M54.9 Dorsalg ia, unspeci titi MENDOZA,[facility] ISTOPHER M 12/28 [facility] OFFICE O/P EST LOW 20 MIN [id number] Diagnos is: ICD-10- CM E11.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 CALDERONTERESITA RD D 12/31 [facility] Outpatient Encounter [id number] [facility] MTMS BY PHARM EST 15 MIN [id number] Diagnos is: ICD-10- CM E11.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 MAK FRENCH CYNTHIA 01/07 [facility] OFFICE O/P NEW MOD 45 MIN [id number] Diagnos is: ICD-10- CM M54.59 Other low back pain ARCADIO QUIGLEY RA 01/28 [facility] MTMS BY PHARM EST 15 MIN [id number] Diagnos is: ICD-10- CM E11.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 MAK FRENCH CYNTHIA 01/29 [facility] MANUAL THERAPY 1/> REGIONS [id number] Diagnos is: ICD-10- CM M54.59 Other low back pain ARCADIO QUIGLEY RA 01/31 [facility] INFRARED THERAPY [id number] Diagnos is: ICD-10- CM M54.50 Low back pain, unspeci fied GAUNYA,CHR ISTOPHER M 02/04 [facility] Out[facility] Encounter [id number] 02/05 [facility] MANUAL THERAPY / REGIONS [id number] Diagnos is: ICD-10- CM M54.59 Other low back pain ARCADIO QUIGLEY RA 02/05 [facility] MECHANICAL TRACTION THERAPY [id number] 1. Diagnos is: ICD-10- CM M54.59 Other low back pain ARCADIO QUIGLEY RA 02/08 [facility] MECHANICAL TRACTION THERAPY [id number] Diagnos is: ICD-10- CM M54.59 Other low back pain ARCADIO QUIGLEY RA 02/11 [facility] EXERCISE CLASS [id number] Diagnos is: ICD-10- CM Y93.42 Activit y, yoga ZANVETTOR, MARIOLA 02/14 [facility] Out[facility] Encounter [id number] 02/15 [facility] EXERCISE CLASS [id number] Diagnos is: ICD-10- CM Y93.42 Activit y, yoga ZANVETTOR, MARIOLA 02/21 [facility] Out[facility] Encounter [id number] 02/21 [facility] Outpatient Encounter [id number] 02/23 [facility] MTMS BY PHARM ADDL 15 MIN [id number] Diagnos is: ICD-10- CM E11.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 MAK FRENCH 02/28 [facility] Out[facility] Encounter [id number] [facility] Out[facility] Encounter [id number] 1.02/28 [facility] INFRARED THERAPY [id number] Diagnos is: ICD-10- CM M54.9 Dorsalg ia, unspeci fikey SALINASALEX,[facility] ISTOPHER M 03/08 [facility] Out[facility] Encounter [id number] [facility] Out[facility] Encounter [id number] [facility] Outpatient Encounter [id number] [facility] Out[facility] Encounter [id number] [facility] Out[facility] Encounter [id number] [facility] OFF/OP EST JULY X REQ PHY/QHP [id number] Diagnos is: ICD-10- CM Z71.89 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 TARUN Pineda 03/18 [facility] Outpatient Encounter [id number] 03/19 [facility] (6[facility]GE[facility] MTMS BY PHARM EST 15 MIN [id number] [id number] Diagnos is: ICD-10- CM Z51.81 [facility] level monitor LENNOX Schwartz ISTINE F 03/19 [facility] OFFICE O/P EST LOW 20 MIN [id number] Diagnos is: ICD-10- CM I63.9 Cerebra l infarct ion, unspeci TERESITA Lopez RD D 03/25 [facility] Outpatient Encounter [id number] 03/26 [facility] Out[facility] Encounter [id number] 03/31 [facility] Outpatient [facility]counter [id number] 04/03 [facility] TRIM NAIL(S) [id number] Diagnos is: ICD-10- CM E11.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 SIM GALLOWAY 04/04 [facility] INFRARED THERAPY [id number] Diagnos is: ICD-10- CM I63.9 Cerebra l infarct ion, unspeci titi MENDOZA,CHR ISTOPHER M 04/05 [facility] Out[facility] Encounter [id number] 04/07 [facility] Outpatient Encounter [id number] 04/08 [facility] MTMS BY PHARM ADDL 15 MIN [id number] Diagnos is: ICD-10- CM E11.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 MAK FRENCH CYNTHIA 04/08 [facility] INFRARED THERAPY [id number] Diagnos is: ICD-10- CM I63.9 Cerebra l infarct ion, unspeci fied REJI,CHR ISTOPHER M 04/11 [facility] Out[facility] Encounter [id number] 1.04/11 [facility] Outpatient Encounter [id number] 1.04/11 [facility] Out[facility] Encounter [id number] 1.04/23 [facility] COMPRE [place]PH EXAM EST PT 1/ [id number] 1. 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, right eye, with inactiv e scar DANIEL MASON GILDARDO E 04/23 [facility] FIT SPECTACLES BIFOCAL [id number] [id number] Diagnos is: ICD-10- CM Z46.0 Encount er for fit/adj st of spectac les and contact lenses DANIEL MASON E 04/23 [facility] INFRARED THERAPY [id number] Diagnos is: ICD-10- CM I69.398 Other sequela e of cerebra l infarct ion NERYUNALEX,[facility] ISTOPHER M 04/24 [facility] OFFICE O/P EST LOW 20 MIN [id number] Diagnos is: ICD-10- CM I63.9 Cerebra l infarct ion, unspeci fied TERESITA MANCERA RD D 04/30 [facility] Outpatient [facility]counter [id number] 05/02 [facility] ACUP 1/> W/O ESTIM EA ADD 15 [id number] Diagnos is: ICD-10- CM I63.9 Cerebra l infarct ion, unspeci fied REJI,CHR ISTOPHER M 05/03 [facility] MTMS BY PHARM ADDL 15 MIN [id number] Diagnos is: ICD-10- CM E11.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 MAK FRENCH CYNTHIA 05/08 [facility] Out[facility] Encounter [id number] 05/09 [facility] Outpatient Encounter [id number] 05/09 [facility] RPR&REFITG SPECT XCP APHAKIA [id number] Diagnos is: ICD-10- CM Z46.0 Encount er for fit/adj st of spectac les and contact lenses BISMARK MCFARLAND 05/15 [facility] INFRARED THERAPY [id number] Diagnos is: ICD-10- CM M54.9 Dorsalg ia, unspeci fikey MENDOZA,CHR ISTOPHER M 05/31 [facility] OFF/OP EST MAY X REQ PHY/QHP [id number] 1. Diagnos is: ICD-10- CM E11.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 SIM GALLOWAY 06/06 [facility] Out[facility] Encounter [id number] 06/12 [facility] Encounter [id number] 06/16 [facility] OFFICE O/P EST LOW 20 MIN [id number] Diagnos is: ICD-10- CM M54.9 Dorsalg ia, unspeci fiTERESITA Yoo RD 06/18 [facility] MTMS BY PHARM ADDL 15 MIN [id number] Diagnos is: ICD-10- CM E11.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 MAK FRENCH 06/26 [facility] INFRARED THERAPY [id number] Diagnos is: ICD-10- CM I63.9 Cerebra l infarct ion, unspeci fied NERYUNYA,CHR ISTOPHER M 07/08 [facility] Encounter [id number] [facility] MTMS BY PHARM ADDL 15 MIN [id number] Diagnos is: ICD-10- CM E11.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 MAK FRENCH 08/01 [facility] Out[facility] Encounter [id number] [facility]counter [id number] [facility] Encounter [id number] [facility] TRIM NAIL(S) [id number] Diagnos is: ICD-10- CM E11.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 SIM GALLOWAY 08/14 [facility] Out[facility] Encounter [id number] 08/14 [facility] INFRARED THERAPY [id number] Diagnos is: ICD-10- CM M54.9 Dorsalg ia, unspeci fied REJI,[facility] ISTOPHER M 08/27 [facility] OFFICE O/P EST LOW 20 MIN [id number] Diagnos is: ICD-10- CM M54.9 Dorsalg ia, unspeci fied TERESITA MANCERA RD D 08/28 [facility] [place] GAIT TRAINING THERAPY [id number] Diagnos is: ICD-10- CM M54.50 Low back pain, unspeci fied ISSAC AG 09/16 [place] [facility] Outpatient Encounter [id number] 1.09/30 [facility] Outpatient [facility]counter [id number] [facility] MTMS BY PHARM ADDL 15 MIN [id number] Diagnos is: ICD-10- CM E11.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 MAK FRENCH 10/10 [facility] INFRARED THERAPY [id number] Diagnos is: ICD-10- CM M54.50 Low back pain, unspeci fied NERYUNALEX,[facility] ISTOPHER M 10/16 [facility] [place] [facility] [place] THERAPEUT[place] EXERCISES 22021-1.63 [id number] Diagnos is: ICD-10- CM M54.50 Low back pain, unspeci fied Sharmila WAY 10/24 [place] THERAPEUT[place] EXERCISES 76869-7.63 [id number] Diagnos is: ICD-10- CM M54.50 Low back pain, unspeci fied Sharmila WAY ASHWIN 10/31 [facility] [place] Social History Combined list of available smoking, tobacco, and other social history from Department of Defense and Veterans Affairs facilities. Social History Type Response Date Comment Source Tobacco smoking status NHIS VA-TOBACCO USE FORMER CIGARETTES 04/30/2024 [facility] [place] [facility] History of tobacco use VA-TOBACCO NEVER USED OTHER TYPE 04/30/2024 [facility] [place] History of tobacco use CO-TOBACCO FORMER USER 04/26/2023 [facility] History of tobacco use CO-TOBACCO FORMER USER 03/30/2022 [facility] History of tobacco use CO-TOBACCO NEVER USED 03/17/2021 [facility] [place] [facility] History of tobacco use CO-TOBACCO FORMER USER 03/31/2020 [facility] [place] [facility] History of tobacco use CO-TOBACCO QUIT 15 YRS OR MORE 11/23/2018 [facility] [place] [facility] History of tobacco use CO-TOBACCO NEVER USED 11/22/2017 [facility] [place] [facility] History of tobacco use LIFETIME NON-TOBACCO USER 03/14/2017 [facility] [place] [facility] History of tobacco use LIFETIME NON-TOBACCO USER 03/01/2016 [facility] [place] [facility] History of tobacco use QUIT TOBACCO USE > 7 YEARS AGO 02/10/2015 quit in 1963 [facility] [place] [facility] History of tobacco use HISTORY OF SMOKING 11/30/2004 Patient states he quit smoking in 1964. [facility] History of tobacco use HISTORY OF SMOKING 05/28/2003 quit x 40yrs [facility] Plan of Care List of future care activities from Department of Veterans Affairs facilities. Additional future care activities may be listed in the Assessment and Plan section. Date/Time Care Activity Care Activity Detail Facili ty 11/07/2024 AMBULATORY - REHAB MEDICINE AMBULATORY - REHAB MEDICINE [facility]
--- NOTE | 2024-11-01 10:14 | HM_ITS ---
Conclusion: 1. Patient was monitored for total period of 6 days and 12 hours 2. Baseline was normal sinus rhythm with average heart of 56 beats per minute 3. No significant pauses noted but frequent sinus bradycardia noted with 77.3% of the time heart rate below 60 beats per minute 4. Intermittent episodes of atrial fibrillation noted with total burden of 4.4% with longest episode lasting 6 hours and 53 minutes with the fastest heart rate of 142 beats per minute 5. No patient reported events MTDD
--- OUTSIDE RECORDS SUMMARY | 2024-11-01 10:16 | XMS_ITS | Patient Health Record ---
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) Active confirmed Problem Type II diabetes mellitus without complication (426585428) Type 2 diabetes mellitus without complications (E11.9) Active confirmed Problem Cellulitis of great toe of right foot (L03.031) Active confirmed Plan Of Treatment Pending Test Test Name Order Date *Uric Acid, Serum 07/07/2016 *CBC With Differential/Platelet 07/08/19 17 *Sedimentation Rate-Westergren 07/07/ 7 79651-PILMLMO NAIL, -05/09/2016 42928-NKBJPAX NAIL, -05/11/2017 67882-CEHSSCH NAIL, -08/10/2017 71166-ZFEPQSL NAIL, -11/09/2017 12263-QIKUKQF NAIL, -02/08/2018 15427-EXRGFLU NAIL, -05/10/2018 78375-FYHXWTI NAIL, -08/02/2018 68694-PNHGAGC NAIL, 1-5 11/08/2018 86476-FCXCFSG NAIL, 1-5 02/11/2019 21063-Vfghhyjk Plate 05/11/2017 72399-Omvnzztb Plate 06/29/2016 91153-Sxemoqkh Plate 11/06/2014 89076-Hdskrjwc Plate 10/16/2015 61614-Zswdfrdf Plate 10/23/2015 11511-Mvpjaqzm Plate 11/11/2015 46584-EQF 02/29/2016 85425- Debride <25 sq cm 04/04/2016 02165- Debride <25 sq cm 05/09/2016 67259- Debride <25 sq cm 11/21/2014 75507- Debride <25 sq cm 05/25/2017 26679-GVTCDML SKIN/TISSUE 03/21/2016 99402-QYXG SKIN LESIONS, 2 TO 4 08/03/19 67017-JCIL SKIN LESIONS, 2 TO 4 11/09/19 69625-OVWW SKIN LESION 05/11/2017 68681-PATE NAIL(S) 05/11/2017 83133-KVXV NAIL(S) 08/02/2018 36024-LGHY NAIL(S) 02/11/2019 82199-IVHI NAIL(S) 11/08/2018 09198-JEGU NAIL(S) 05/10/2018 15249-TLXF NAIL(S) 02/08/2018 90375-ZPZR NAIL(S) 11/09/2017 60160-RSEF NAIL(S) 08/10/2017 23347,C8548-VBH TENDON SHEATH/LIGAMENT 0 10/29/2015 Insurance Providers Payer Name Payer Address Payer Phone Subscriber Number Group Number Insured Name Patient Relationship to Insured Coverage Start Date Coverage End Date Medicare National Govt Svcs Inc [address] [facility] [place] [address] [id number] Segun Fields Self - patient is the insured 4 [employer] [address] [place] [address] [phone] [id number] Segun Fields Self - patient is the insured Medical (General) History Medical History History ICD Code Cataracts Diabetic Diverticulosis Macular degeneration Kidney disease High blood pressure Reflux Gout Cholesterol Basal cell carcinoma Hypertensive disorder Back pain Arthritis Surgical History Surgery Date(Month/Year) laser surgery kidney surgery basal cell carcinoma 07/13/18 Hospitalization History Reason Date(Month/Year) admitted [facility] [place] for anxiety keep eye on hea rt 06/11/2015
--- OUTSIDE RECORDS SUMMARY | 2024-11-01 10:16 | XMS_ITS | Encounter Summary ---
Author Organization [facility] Address [address] [place] [address] [place] [address] Phone Care Team Providers Care Railroad Car Loader Name Role Phone Al Petit MD Primary Care Provider [phone] Encounter Details Date Type Department Care Team (Late st Contact Info) Description 07/26/2021 Procedure Pass Echo Lab [address] [place] [address] Social History Tobacco Use Types Packs/Day Years Used Date Smoking Tobacco: Former Smokeless Tobacco: Never Comments:1964 quit Alcohol Use Standard Drinks/Week Comments Not Currently 0 (1 standard drink = 0.6 oz pur e alcohol) social Sex and Gender Information Value Date Recorded Sex Assigned at Male 07/12/2022 12:39 PM EDT Legal Sex Male 1:33 PM EST Gender Identity Male 07/12/2022 12:39 PM EDT Sexual Orientation Not on file documented as of this encounter Plan of Treatment Not on file documented as of this encounter Visit Diagnoses Not on filedocumented in this encounter Additional Health Concerns Infection Onset Date Last Indicated Resolved Time CoV-Risk 07/12/2022 07/12/2022 07/23/2022 1:22 AM EDT documented as of this encounter Care Teams Railroad Car Loader Relationship Specialty Start Date End Date Al Petit MD [address] [place] [address] Dr Lamb [place] [address] PCP - General Internal Medicine 05/14/21 documented as of this encounter Additional Source Comments The information contained in this document represents components of the legal health record. It is not the complete legal health record.[facility]
== END ==
LOC: HO.CARD 10:11
PROVIDERS: PCP Internal Medicine; Referring Provider Internal Medicine Cardiovascular Disease; Visit Provider Internal Medicine
DX: I48.91 Unspecified atrial fibrillation (principal)
CPT/HCPCS: 93242

== ENCOUNTER → 2024-11-01 10:14 | Outpatient (BNV) | payer OTHER, SELFPAY | PROVIDERS: PCP Internal Medicine; Visit Provider Internal Medicine Cardiovascular Disease | DX: I48.91 Unspecified atrial fibrillation (principal) | CPT/HCPCS: 93244 ==

== ENCOUNTER 2024-12-09 13:33 | Outpatient (AMB) | payer OTHER, MEDICARE, SELFPAY ==
[2024-12-09 13:35] VITALS: BP 122/66; PULSE 51; BMI 35.6
--- NOTE | 2024-12-09 13:35 | A.OFFVIS_ITS ---
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 Required: No Accompanied by: Self / Same As Patient Allergies metformin Allergy (Verified 12/09/24 13:38) Diarrhea Medication List - Last Reconciled 12/09/24 by Ernst Jeffery MD allopurinol 300 mg PO DAILY apixaban (Eliquis) 2.5 mg PO BID ascorbic acid (vitamin C) 500 mg PO DAILY aspirin 81 mg PO DAILY fluticasone propionate 50 mcg/actuation 2 sprays intranasal DAILY metoprolol tartrate 50 mg PO BID@0900,1700 gc-boo-UM-vit Z-mmyosu-zvsfagj 200 mcg-15 mcg- 5 mg-1 mg (PreserVision AREDS 2 Plus Multivit) 1 cap PO BID omeprazole 20 mg PO DAILY@0630 potassium citrate ER 5 mEq PO BID@0900,1700 rosuvastatin 30 mg PO DAILY@1700 tamsulosin 0.8 mg PO BEDTIME HPI Comments Details: Segun returns for follow-up. Recently seen in consultation regarding atrial fibrillation. He is a patient at [facility] but would like to switch to our care. With regard to rate versus rhythm control, he is on metoprolol. For anticoagulation, he was on Xarelto but he continued to have TIA type episodes and following this, he was apparently switched over to Eliquis. After that, he has been quite well. Clinically, he has got absolutely no symptoms. No exertional angina or shortness of breath or palpitations or any other cardiac symptoms. Unlimited exercise tolerance with no limitations. [facility] Medical History (Updated 10/07/24 @ 11:59 by Ernst Jeffery MD) CKD (chronic kidney disease) stage 3, GFR 30-59 ml/min Acute CVA (cerebrovascular accident) Acute kidney injury superimposed on CKD Obesity (BMI 30.0-34.9) TIA (transient ischemic attack) Focal neurological deficit Obesity Hyperlipidemia associated with type 2 diabetes mellitus Diabetes mellitus Insulin dependent type 2 diabetes mellitus A-fib Surgical History History of left knee replacement Family History (Updated 03/20/24 @ 14:05 by HEATHER Smart) Father No problems noted. Mother No problems noted. Other Substance use disorder Social History Household Members: Spouse Housing: House Do you presently have visiting nurse or other home services: No Alcohol intake: current Alcohol intake frequency: a few times a week Patient Tobacco Use Status: Never used Tobacco e-Cigarette/Vaping Use: Never Used Second Hand Smoke Exposure: No service: Yes Current occupational status: retired Cognitive needs: No Hearing needs: Yes (Hearing aide) Vision needs: Yes (Glasses) Review of Systems Const Denies daytime sleepiness, Denies difficulty sleeping, Denies snoring, Denies stops breathing during sleep and Denies weakness Card Denies chest pain, Denies rapid heart rate, Denies irregular heart rhythm, Denies claudication, Denies leg edema, Denies lightheadedness, Denies palpitations, Denies dyspnea, Denies dyspnea on exertion, Denies orthopnea, Denies paroxysmal nocturnal dyspnea and Denies slow heart rate Resp Denies cough, Denies dyspnea, Denies dyspnea on exertion and Denies snoring GI Reports no additional complaints, Denies hematochezia, Denies change in stool character and Denies dyspepsia Musc Denies abnormal gait, Denies muscle weakness and Denies numbness Neuro Denies abnormal gait, Denies numbness and Denies weakness Endo Denies palpitations Physical Exam Vital Signs: Last Vital Signs Pulse 51 12/09/24 13:35 BP 122/66 12/09/24 13:35 BMI result Body Mass Index 35.6 Const General: comfortable and no acute distress Orientation/consciousness: patient oriented x3 HEENT Other: Unremarkable Head: Yes normal to inspection Neck Neck: Yes normal visual inspection Chest Chest palpation & inspection: normal inspection of the chest Resp Auscultation: clear to auscultation bilaterally Cardio Palpation: normal PMI Heart sounds: S1 normal heart sound present, S2 normal heart sound present, no gallops, no murmurs and no rubs GI Palpation (GI): Soft to palpation Back/Spine/Pelvis Other: unremarkable Skin General skin exam: no rashes or lesions noted Neuro General: patient oriented x3 Extrem General: Yes normal to inspection Psych Mental Status: mental status grossly normal Assessment & Plan Assessment & Plan (1) Paroxysmal atrial fibrillation: Code(s): I48.0 - Paroxysmal atrial fibrillation Category: Medical (2) History of stroke: Code(s): Z86.73 - Personal history of transient ischemic attack (TIA), and cerebral infarction without residual deficits Category: Medical (3) CKD (chronic kidney disease) stage 3, GFR 30-59 ml/min: Code(s): N18.30 - Chronic kidney disease, stage 3 unspecified Category: Medical Plan Echocardiogram from 2021-LVEF 55-60%. Normal left atrial size. Mild mitral regurgitation. Myocardial perfusion imaging study from 2023-no ischemia/infarction and normal LVEF. In the Holter monitor, underlying rhythm is sinus with an average rate of 56/Min. Sinus bradycardia noted about 77% of the time. Intermittent atrial fibrillation noted with a burden of 4.4% with the longest episode around 7 hours and fastest rate of 142/Min-but the average rate is much lower. Findings reviewed with patient. In the absence of any clinical symptoms, we can continue the beta-blockers for the same dose without changes. As he has baseline bradycardia, it will be difficult to treat the atrial fibrillation without making him more bradycardic. Additionally, he has got no symptoms whatsoever from the atrial fibrillation itself. With regard to anticoagulation, continue without changes. Follow up in 6 months. If any concerning symptoms, he will contact us in the in [facility]. Discussion Notes I discussed with the patient the management of atrial fibrillation, emphasizing the importance of continuing Eliquis to prevent thromboembolic events. We also reviewed the patient's kidney function, noting the need for regular monitoring due to the non-functioning left kidney. The patient was advised to report any exertional chest pain, as this would require further evaluation. Patient was informed and verbally consented to the use of an ambient scribe for clinic note documentation during this visit. Patient Instructions: - Continue taking Eliquis as prescribed. - Monitor for any chest pain during physical activity and report if it occurs. - Follow up in six months for routine evaluation. Coding Level of Care Code Est Pt Level 4 (39942) Complex EM visit Add On G2211 Diagnoses Paroxysmal atrial fibrillation I48.0 History of stroke Z86.73 CKD (chronic kidney disease) stage 3, GFR 30-59 ml/min N18.30
--- OUTSIDE RECORDS SUMMARY | 2024-12-09 15:04 | XMS_ITS | Encounter Summary ---
Author Organization [facility] Address [address] [place] [address] [place] [address] Phone Care Team Providers Care Retort Furnace Helper Name Role Phone Al Petit MD Primary Care Provider [phone] Encounter Details Date Type Department Care Team (Late st Contact Info) Description 07/26/2021 Procedure Pass Echo Lab [facility] [place] [address] Social History Tobacco Use Types Packs/Day Years [...] documented as of this encounter Care Teams Retort Furnace Helper Relationship Specialty Start Date End Date Al Petit MD [address] [place] [address] Dr Lamb [place] [address] PCP - General Internal Medicine 05/14/21 documented as of this encounter Additional Source Comments The information contained in this document represents components of the legal health record. It is not the complete legal health record.[facility]
--- OUTSIDE RECORDS SUMMARY | 2024-12-09 15:04 | XMS_ITS | Encounter Summary ---
Author Organization [facility] Address [address] [place] [address] [place] [address] Phone Care Team Providers Care Dorr Operator Name Role Phone Kelli Garcia Primary Care Provider AC Al Petit MD Primary Care Provider [phone] Encounter Details Date Type Department Care Team (Late st Contact Info) Description 04/26/2021 Procedure Pass Echo Lab [address] [address] Social History Tobacco Use Types Packs/Day Years [...] documented as of this encounter Care Teams Dorr Operator Relationship Specialty Start Date End Date Kelli PCP - General 04/26/21 05/13/21 Al Petit MD [address] [place] [address] [place] [address] PCP - General Internal Medicine 05/14/21 documented as of this encounter Additional Source Comments The information contained in this document represents components of the legal health record. It is not the complete legal health record.[facility]
--- OUTSIDE RECORDS SUMMARY | 2024-12-09 15:04 | XMS_ITS | Clinical Summary ---
Author Organization [facility] Address [address] [address] Phone Care Team Providers Care Loaf Counter Name Role Phone Al Petit MD Primary Care Provider [phone] Allergies Active Allergy Reactions Criticality Noted Date [...] unit) tablet 25 mcg. 3 Active vitamins A,C,H-ssvg-eciry r (PRESERVISION AREDS) 4,296 mcg-226 mg-90 mg [...] labs done twice a year at the [facility] LDL goal for his risk should be [...] A1c goal should be less than 7 Social History Tobacco Use Types Packs/Day Years [...] 09/07/2020 03/09/2020 URINE MICROALBUMIN/CREATININE RATIO 07/30/2023 07/29/2022 BLOOD PRESSURE 03/15/2024 09/13/2023 CREATININE LEVEL 07/23/2024 07/24/2023, 04/2022, 06/15/2022 INFLUENZA VACCINE (#1) 2024 01/31/2019 COVID-19 VACCINE (2 - season) 2024 03/15/2023 DIABETIC EYE EXAM 02/13/2025 02/14/2024, , 11/27/2023, [...] EDT) SODIUM 139 133 - 146 mmol/L [facility] CHLORIDE 104 96 - 108 mmol/L [facility] POTASSIUM 4.1 3.3 - 5.1 mmol/L [facility] Comment:Specimen slightly he molyzed, result may be falsely elevated. CO2 23 21 - 35 mmol/L [facility] BUN 21(H) 6 - 19 mg/dL [facility] CREATININE 1.50 0.5 - 1.5 mg/dL [facility] GLUCOSE 174(H) 70 - 99 mg/dL [facility] CALCIUM 9.5 8.4 - 10.3 mg/dL [facility] EGFR 46(L) >59 mL/min/1.7 3m2 [facility] Comment:Estimated glomerular filtration rate calculated using the CKD-EPI refit equation. ANION GAP 16 10 - 20 mmol/L [facility] Blood 07/12/2022 1:09 PM EDT 07/12/2022 1:15 PM EDT us Julito Melendez MD LAB BLOOD ORDERABLES Final Resul t [facility] [address] [place] [address] from Last 3 Months or Most Recently Relevant to Health Maintenance Insurance MEDICARE PART A & B [employer] MEDEX SUPPLEMENT [facility] MEDICARE PART A & B [employer] MEDEX SUPPLEMENT [facility] MEDICARE PART A & B [employer] MEDEX SUPPLEMENT MEDICARE PART A & B [employer] MEDEX SUPPLEMENT MEDICARE PART A & B [employer] MEDEX SUPPLEMENT [facility] Address: [facility] [address] [place] [address] MEDICARE PART A & B [employer] MEDEX SUPPLEMENT [place] [id number] [employer] MEDEX SUPPLEMENT Member Subscriber Plan / Payer (Ef fective 2004-Present) Name:Segun Fields Relation to Subscriber:Self Name:Segun Fields Payer ID:[id number] (NAIC) Type:Indemnity Address: [address] MEDICARE PART A & B [employer] MEDEX SUPPLEMENT [facility] [place] [address] MEDICARE PART A & B [employer] MEDEX SUPPLEMENT [facility] Care Teams Loaf Counter Relationship Specialty Start Date End Date Al Petit MD [address] [place] [address] [place] [address] PCP - General Internal Medicine 05/14/21 Additional Source Comments The information contained in this document represents components of the legal health record. It is not the complete legal health record.[facility]
--- OUTSIDE RECORDS SUMMARY | 2024-12-09 15:04 | XMS_ITS | Patient Health Record ---
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 confirmed Problem Type II diabetes mellitus without complication (567348301) Type 2 diabetes mellitus without complications (E11.9) Active confirmed Problem Cellulitis of great toe of right foot (L03.031) Active confirmed Plan Of Treatment Pending Test Test Name Order Date *Uric Acid, Serum 07/07/2016 *CBC With Differential/Platelet 07/08/19 17 *Sedimentation Rate-Westergren 07/07/ 7 17385-ZLGGNRU NAIL, -05/09/2016 11477-GIOEEKP NAIL, -05/11/2017 69666-NIZRSQV NAIL, -08/10/2017 22286-RKNWEKD NAIL, -11/09/2017 91235-XLXRIFN NAIL, -02/08/2018 53153-SUSTLKT NAIL, -05/10/2018 27267-YOYXEVT NAIL, -08/02/2018 11109-KSYUZVP NAIL, 1-5 11/08/2018 60321-KWJPVUC NAIL, 1-5 02/11/2019 77683-Bvapruvg Plate 05/11/2017 91110-Gcpjbgvg Plate 06/29/2016 83280-Rcmyahob Plate 11/06/2014 48652-Lqojiapl Plate 10/16/2015 19479-Oybjiqwx Plate 10/23/2015 20795-Dtojgocg Plate 11/11/2015 64446-QXD 02/29/2016 43060- Debride <25 sq cm 04/04/2016 48871- Debride <25 sq cm 05/09/2016 59690- Debride <25 sq cm 11/21/2014 67015- Debride <25 sq cm 05/25/2017 05343-JYYWIZY SKIN/TISSUE 03/21/2016 78638-ROIW SKIN LESIONS, 2 TO 4 08/03/19 14975-DXXM SKIN LESIONS, 2 TO 4 11/09/19 85695-JXNU SKIN LESION 05/11/2017 10979-GJLY NAIL(S) 05/11/2017 78200-JQIE NAIL(S) 08/02/2018 15632-XUOG NAIL(S) 02/11/2019 73415-GDBU NAIL(S) 11/08/2018 50268-RBDJ NAIL(S) 05/10/2018 89231-LAXO NAIL(S) 02/08/2018 13911-COEZ NAIL(S) 11/09/2017 53199-NFWR NAIL(S) 08/10/2017 15908,V6926-YYY TENDON SHEATH/LIGAMENT 0 10/29/2015 Insurance Providers Payer Name Payer Address Payer Phone Subscriber Number Group Number Insured Name Patient Relationship to Insured Coverage Start Date Coverage End Date Medicare National Govt Svcs Inc [address] [place] [address] [id number] Segun Fields Self - patient is the insured 4 [employer] [address] [place] [address] [id number] Segun Fields Self - patient is the insured Medical (General) History Medical History History ICD Code Cataracts Diabetic Diverticulosis Macular degeneration Kidney disease High blood pressure Reflux Gout Cholesterol Basal cell carcinoma Hypertensive disorder Back pain Arthritis Surgical History Surgery Date(Month/Year) laser surgery kidney surgery basal cell carcinoma 07/13/18 Hospitalization History Reason Date(Month/Year) admitted [facility] [place] for anxiety keep eye on hea rt 06/11/2015
== END 2024-12-09 13:55 | disposition home or self-care (01) ==
LOC: HO.HCS 13:34
PROVIDERS: PCP Internal Medicine; Referring Provider Internal Medicine; Visit Provider Internal Medicine
DX: I48.0 Paroxysmal atrial fibrillation (principal); Z86.73 Personal history of transient ischemic attack (TIA), and cerebral infarction without residual deficits; N18.30 Chronic kidney disease, stage 3 unspecified
CPT/HCPCS: 99214; G2211

== ENCOUNTER → 2024-12-09 13:33 | Outpatient (BNVA) | payer OTHER, SELFPAY | PROVIDERS: PCP Internal Medicine; Visit Provider Internal Medicine | DX: I48.0 Paroxysmal atrial fibrillation (principal); N18.30 Chronic kidney disease, stage 3 unspecified; Z86.73 Personal history of transient ischemic attack (TIA), and cerebral infarction without residual deficits; Z79.01 Long term (current) use of anticoagulants | CPT/HCPCS: 99212 ==